=== PATIENT | female | born 1980 | race Caucasian/White ===

== ENCOUNTER → 2018-02-24 08:49 | Outpatient (CLI) | payer OTHER, SELFPAY ==
[2018-02-24 10:28] LABS: International Normalized Ratio 1.2
== END ==
PROVIDERS: Referring Provider Internal Medicine Hematology & Oncology; Visit Provider Internal Medicine Hematology & Oncology
DX: I82.621 Acute embolism and thrombosis of deep veins of right upper extremity (principal); I82.890 Acute embolism and thrombosis of other specified veins
CPT/HCPCS: 85610

== ENCOUNTER → 2020-04-15 06:48 | Outpatient (CLI) | payer BC, SELFPAY ==
--- NOTE | 2020-04-15 07:37 | CT_ITS ---
STUDY: CT CHEST WITH CONTRAST REASON FOR EXAM: Female, 39 years old. CONNECTIVE TISSUE DISORDER? HISTORY OF PE RADIATION DOSAGE (If Supplied By Facility): CTDIvol = ( 7.11 ) mGy, DLP = ( 151.45 ) mGycm TECHNIQUE: Transaxial imaging was performed following intravenous administration of IV 100mL Isovue-300. Individualized dose optimization techniques were used for this CT. COMPARISON: 08/14/2014 FINDINGS: There are interstitial fibrotic changes of the lungs more prominent in the lung bases may be due to scleroderma. There is no demonstrated pleural abnormality. Normal heart and pericardium. There is dilatation of the esophagus. Normal hilar regions. Normal enhanced pulmonary arteries. Normal aorta arch and descending thoracic aorta. Normal osseous structures. There is no demonstrated abnormality of the visualized upper abdomen. CT/Chest WITH Contrast IMPRESSION: Subpleural interstitial fibrosis more prominent in the lung bases and elevation of the esophagus may be due to scleroderma. There has been no significant change since the previous study. Electronically Signed: Rosa Thorne, at 16:14 EST Tel , Service support ,
--- NOTE | 2020-04-16 08:32 | PFT ---
INTRODUCTION: The patient is a 39-year-old female who presents for pulmonary function studies secondary to a diagnosis of unspecified asthma. Respiratory therapy reports good patient effort. Bronchodilators were used during testing. INTERPRETATION: Forced expiration spirometry demonstrates no evidence of a large airways obstructive ventilatory defect. There was no significant response to aerosolized bronchodilators, based upon strict ATS criteria. Spirograms are of good quality and plateau normally. Body plethysmography was performed and reveals a decreased TLC to 3.52 L, 69% of predicted, indicative of a moderate restrictive ventilatory impairment. Diffusing capacity by single breath CO is reduced as well at 61% of predicted. IMPRESSION: Moderate restrictive ventilatory impairment with symmetric reduction in diffusing capacity. No significant bronchodilator response was noted.
== END ==
PROVIDERS: Referring Provider Internal Medicine Rheumatology; Visit Provider Internal Medicine Rheumatology
DX: M35.9 Systemic involvement of connective tissue, unspecified (principal); J45.909 Unspecified asthma, uncomplicated
CPT/HCPCS: 71260; 94060; 94726; 94729; Q9967

== ENCOUNTER 2020-10-04 01:15 | Emergency (ER) | payer BC, SELFPAY ==
[2020-10-04 01:16] VITALS: BP 115/84; PULSE 77; RESP 18; TEMP 36.7; O2SAT 98; BMI 19.8
[2020-10-04] MEDS: 0.9% Normal Saline 1,000 ML 1000 ML IV (01:50)
[2020-10-04] MEDS: Ondansetron 4 MG/2 ML Vial IV (01:50)
[2020-10-04 01:51] LABS: Bacteria 0 SEEN /hpf (None Seen); Mucous, Urine 0 SEEN /hpf (<or=2+); Red Blood Cells-Urine 0 SEEN /hpf (0-5); Squamous Epithelial Cells - UA 0 SEEN /hpf (5-10); White Blood Cells 0 SEEN /hpf (0-5)
[2020-10-04] MEDS: Morphine 4 MG/ML Syringe IV (01:52)
[2020-10-04 01:53] LABS: Absolute Lymphocyte Count 1.72 X10^3/uL (0.83-4.51); Absolute Neutrophil Count 5.8 X10^3/uL (2.0-7.7); Basophil# 0.04 X10^3/uL; Basophil% 0.5 % (0-1); Eosinophil# 0.11 X10^3/uL; Eosinophils% 1.3 % (0-5); Hematocrit 43.8 % (37-47); Hemoglobin 14.1 g/dL (12.0-15.0); Lymphocyte # 1.72 X10^3/ul (0.83-4.51); Lymphocyte % 20.1 % (19-41); Mean Corp Hgb Conc 32.2 g/dL (32-36); Mean Corpuscular Hgb 28.3 pg (27.0-32.0); Mean Corpuscular Volume 87.8 fL (81-99); Mean Platelet Vol. 10.8 fl (6.2-12.0); Monocyte% 9.4 % (0-10); NRBC Flagged by Analyzer 0 % (0-5); Neutrophil # 5.83 X10^3/uL (2.7-7.7); Neutrophil % 68.2 % (47-70); Platelet Count 193 K/mm3 (150-450); RBC Distribution Width CV 14.1 % (11.6-14.6); RBC Distribution Width SD 44.8 fl (35.1-43.9); Red Blood Count 4.99 M/mm3 (4.2-5.4); White Blood Count 8.5 K/mm3 (4.4-11.0)
[2020-10-04 01:54] LABS: Color, Urine Yellow (Yellow); Glucose, Dipstick Normal (Normal); Ketone-Dipstick Negative (Negative); Leukocyte Esterase-Dipstick Negative /ul (Negative); Nitrite-Dipstick Negative (Negative); Occult Blood-Urine Negative /ul (Negative); Protein-Dipstick Negative (Negative); Urine Bilirubin Dipstick Negative (Negative); Urine Clarity Clear (Clear); Urine Urobilinogen Normal (Normal)
[2020-10-04 02:01] LABS: Internal QC Validated? YES +Cl - CLEAR BKGD
[2020-10-04 02:02] LABS: Pregnancy, Urine Negative Negative
--- NOTE | 2020-10-04 02:04 | EDS_ITS ---
HPI HPI - GI History of Present Illness Chief Complaint: Abd Pain Narrative Narrative: 40-year-old female presenting with diffuse cramping abdominal pain which she states began after she ate Occitan food tonight. Nobody else ate what she ate but nobody else was ill. She admits to nausea and diarrhea as well. She has not had a fever or chills. PFSH PFS Medical History Lung disease Home Medications hydroxychloroquine 200 mg PO BID 08/14/14 [History Last Taken 03/20/15 20:00 200 mg] warfarin [Coumadin ([facility])] 2 mg PO DAILY 08/14/14 [History Last Taken 03/21/15 17:00 3 mg] lansoprazole [Prevacid] 30 mg PO DAILY 03/10/15 [History Last Taken 03/22/15 08:00 30 mg] promethazine 25 mg PO Q6H PRN PRN #10 tablet 10/04/20 [Rx Last Taken Unknown] sertraline [Zoloft] 50 mg PO DAILY 10/04/20 [History Last Taken Unknown] Allergy/AdvReac Type Severity Reaction Status Date / Time metronidazole [From Flagyl] AdvReac Rash Verified 10/04/20 01:20 Social History Smoking Status: Never smoker ROS ROS ED Constitutional Constitutional ED: Denies chills, fever(s) or sweats Eyes Eyes: Denies blurry vision or change in vision ENT ENT ED: Denies ear pain, rhinorrhea or sore throat Cardiovascular Cardiovascular: Denies chest pain, palpitations or racing heartbeat Respiratory/Chest Respiratory/Chest: Denies cough, dyspnea or sputum Gastrointestinal Gastrointestinal: Reports abdominal pain, bloating, diarrhea and nausea; Denies vomiting Genitourinary Genitourinary ED: Denies dysuria, hematuria or urinary frequency Musculoskeletal Musculoskeletal: Denies arthralgias, myalgias or neck pain Integumentary Denies abscess, Abrasions or rash Neurologic Neurologic: Denies headache(s), paresthesias or weakness Psychiatric Psychiatric: Denies anxiety, depression, suicidal ideation or suicidal thoughts Endocrine Endocrinology: Denies polydipsia or polyuria EXAM Physical Exam Const Vital Signs: 10/04/20 01:16 10/04/20 03:25 Temperature 98.1 F Temperature Source Oral Pulse Rate 77 86 Respiratory Rate 18 18 Blood Pressure 115/84 H 111/60 Blood Pressure Mean 94 Pulse Ox 98 96 Oxygen Delivery Method Room Air Positive well nourished and no apparent distress General Appearance ED: Negative for pallor HEENT Reports normocephalic, head/scalp atraumatic and moist mucous membranes Eyes PERRL and EOMs intact bilaterally Neck no lymphadenopathy and supple Resp normal respiratory effort and clear to auscultation bilaterally Auscultation: Negative for rales, rhonchi or wheezes Cardio regular rate and regular rhythm GI normal to inspection, nondistended, normoactive bowel sounds, soft to palpation and non-distended Auscultation: normoactive bowel sounds Palpation: soft Narrative: Deferred Back/Spine General Back: Negative for CVA tenderness Extremity normal to inspection General Extremety ED: Yes edema and tenderness General Extremity: edema Neuro oriented x3 and CN's II-XII intact bilaterally Sensorium / Orientation: alert Motor Exam: strength 5/5 throughout Psych mental status grossly normal Attitude: No agitated Skin no rashes or lesions noted and no wounds General Skin Exam: Negative for jaundice or pallor MDM MDM MDM Narrative Medical decision making narrative: Patient presenting with diffuse crampy abdominal pain and nausea after eating Occitan food. She denies any fever. This was acute in onset after eating Occitan food. Lab work shows no leukocytosis her H&H is stable. Renal function electrolytes are normal. Urinalysis is negative. INR is therapeutic. Patient was given IV fluids, Zofran, morphine and she feels improved. I do not believe she needs a CT of the abdomen and pelvis. She was given Bentyl prior to leaving. She is given prescription for Phenergan for home. Lab Data Attestation: I reviewed the patient's lab results. Labs: Laboratory Results - last 24 hr 10/04/20 10/04/20 10/04/20 01:25 01:30 01:30 WBC 8.5 RBC 4.99 Hgb 14.1 Hct 43.8 MCV 87.8 MCH 28.3 MCHC 32.2 RDW Std Deviation 44.8 H RDW Coeff of Guy 14.1 Plt Count 193 MPV 10.8 Immature Gran % (Auto) 0.500 Neut % (Auto) 68.2 Lymph % (Auto) 20.1 [place] % (Auto) 9.4 Eos % (Auto) 1.3 Baso % (Auto) 0.5 Absolute Neuts (auto) 5.8 Absolute Lymphs (auto) 1.72 Nucleated RBC % 0 PT INR Sodium 138 Potassium 3.5 Chloride 103 Carbon Dioxide 31.0 Anion Gap 4 L BUN 11 Creatinine 0.91 Estim Creat Clear Calc 67.85 Est GFR (MDRD) Af Amer 88 Est GFR (MDRD) Non-Af 73 BUN/Creatinine Ratio 12.1 Glucose 96 Calcium 9.1 Total Bilirubin 0.40 AST 29 ALT 30 Alkaline Phosphatase 82 Total Protein 8.9 H Albumin 3.4 Globulin 5.5 H Albumin/Globulin Ratio 0.6 L Lipase 199 Urine Color Yellow Urine Clarity Clear Urine pH 7.0 Ur Specific [place] 1.010 Urine Protein Negative Urine Glucose (UA) Normal Urine Ketones Negative Urine Occult Blood Negative Urine Nitrite Negative Urine Bilirubin Negative Urine Urobilinogen Normal Ur Leukocyte Esterase Negative Urine RBC 0 SEEN Urine WBC 0 SEEN Ur Squamous Epith Cells 0 SEEN Urine Bacteria 0 SEEN Urine Mucus 0 SEEN Urine Test Negative 10/04/20 02:10 WBC RBC Hgb Hct MCV MCH MCHC RDW Std Deviation RDW Coeff of Guy Plt Count MPV Immature Gran % (Auto) Neut % (Auto) Lymph % (Auto) [place] % (Auto) Eos % (Auto) Baso % (Auto) Absolute Neuts (auto) Absolute Lymphs (auto) Nucleated RBC % PT 21.9 H INR 2.0 Sodium Potassium Chloride Carbon Dioxide Anion Gap BUN Creatinine Estim Creat Clear Calc Est GFR (MDRD) Af Amer Est GFR (MDRD) Non-Af BUN/Creatinine Ratio Glucose Calcium Total Bilirubin AST ALT Alkaline Phosphatase Total Protein Albumin Globulin Albumin/Globulin Ratio Lipase Urine Color Urine Clarity Urine pH Ur Specific [place] Urine Protein Urine Glucose (UA) Urine Ketones Urine Occult Blood Urine Nitrite Urine Bilirubin Urine Urobilinogen Ur Leukocyte Esterase Urine RBC Urine WBC Ur Squamous Epith Cells Urine Bacteria Urine Mucus Urine Test Discharge Plan Triage Chief Complaint: Abd Pain ED Provider: Erick New Dx/Rx/DC Orders Instructions: ED Abdominal Pain Unkn Cause Fem Prescriptions: New promethazine 25 mg tablet 25 mg PO Q6H PRN PRN (Reason: Nausea) Qty: 10 RF: 0 No Action warfarin [Jantoven] 3 MG tablet 2 mg PO DAILY RF: 0 hydroxychloroquine 200 MG tablet 200 mg PO BID RF: 0 lansoprazole [Prevacid] 30 MG capsule 30 mg PO DAILY RF: 0 sertraline [Zoloft] 50 mg Tablet 50 mg PO DAILY RF: 0 Referrals: TAYO GARCIA [Other] Disposition Disposition: Home, self care Discharge Date/Time: 10/04/20 03:28
[2020-10-04 02:05] LABS: ALB/GLOB Ratio 0.6 RATIO (0.9-2.4); AST(SGOT) 29 U/L (15-37); Alanine Aminotransfer ALT/SGPT 30 U/L (13-56); Albumin, Serum 3.4 g/dL (3.2-5.0); Alkaline Phosphatase 82 U/L (45-117); Anion Gap 4 (5-15); BUN 11 mg/dL (7-18); BUN/Creat Ratio 12.1 RATIO (10-20); Calcium,Total 9.1 mg/dL (8.5-10.1); Chloride 103 mmol/L (98-107); Creatinine, Serum 0.91 mg/dL (0.55-1.02); EST Glomerular Filtration Rate 73 mL/min (>60); Est Glom Filt Rate - Afr Amer 88 mL/min (>60); Estimated Creatinine Clearance 67.85 ml/min; Globulin 5.5 g/dL (2.2-4.2); Glucose 96 mg/dL (74-106); Lipase 199 U/L (73-393); Potassium 3.5 mmol/L (3.5-5.1); Protein, Total 8.9 g/dL (6.4-8.2); Sodium Level 138 mmol/L (136-145)
[2020-10-04 02:24] LABS: Prothrombin Time (Protime)PT. 21.9 SECONDS (11.7-14.9)
[2020-10-04] MEDS: Dicyclomine 10 MG Capsule 20 MG PO (03:20)
[2020-10-04 03:25] VITALS: BP 111/60; PULSE 86; RESP 18; O2SAT 96
== END 2020-10-04 03:28 | disposition home or self-care (01) ==
PROVIDERS: Emergency Provider Student in an Organized Health Care Education/Training Program
DX: R10.9 Unspecified abdominal pain (principal); R11.0 Nausea; R19.7 Diarrhea, unspecified; Z79.01 Long term (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 of anticoagulants; Z79.899 Other long term (current) drug therapy
CPT/HCPCS: 80053; 81001; 81025; 83690; 85025; 85610; 96361; 96374; 96375; 99284; J7030; A4216; J2405

== ENCOUNTER 2021-03-30 03:08 | Day surgery (SDC) | payer BC, SELFPAY ==
[2021-03-30] VITALS (10 sets, daily range): BP systolic 102–118; BP diastolic 66–78; PULSE 80–99; RESP 14–16; TEMP 36.4–37.3; O2SAT 92–100; BMI 20.9
--- NOTE | 2021-03-30 | APP_PTH ---
PATIENT: TAMY VITAL LOC: [facility] [place] U#:[id number] AGE/SX: 40/F ROOM: RE03/30/[address]: Dr. Xavier Villalobos MD : 1980 BED: DIS: 03/30/2021 SPEC #: [id number] RECD: 03/30/21 13:58 STATUS: JAIMIE MARISELA #: [id number] KARMA: 03/30/21 00:[address]: Xavier Villalobos DEPT: SURGICAL PATHOLOGY RECD BY: Hebert Fountain Tissues: Appendix, NOS Procedures: Surgery Specimen Level III HEADER OPERATION: Laparoscopic appendectomy PRE-OP DIAGNOSIS: Acute appendicitis TISSUE SUBMITTED: Appendix MICROSCOPIC DIAGNOSIS Appendix, appendectomy: Acute appendicitis. Acute serositis. AM:sari 03/31/2021 MICROSCOPIC DESCRIPTION Slides are reviewed. GROSS DESCRIPTION Received in fixative is one container labeled with the patient's name and designated appendix. The specimen consists of an appendix measuring 4 cm in length and 0.7 cm in average diameter. No gross perforations are evident. No mass lesion is identified. Prevention Coordinator sections are submitted in one cassette. / AM:sari 03/30/21 TC:2 [facility]: [id number]
--- NOTE | 2021-03-30 03:37 | CT_ITS ---
STUDY: CT ABDOMEN AND PELVIS WITH CONTRAST REASON FOR EXAM: Female, 40 years old patient with abdominal pain. RADIATION DOSAGE (If Supplied By Facility): CTDIvol = ( 8.27 ) mGy, DLP = ( 317.14 ) mGycm TECHNIQUE: Transaxial images were obtained from the dome of the diaphragm to the symphysis pubis without oral contrast. 100 mL of Isovue-370 was administered. Sagittal and coronal images were reconstructed. Individualized dose optimization techniques were used for this CT. COMPARISON: CT of the abdomen and pelvis dated 04/17/2015. FINDINGS: There are lucencies within the periphery of the lower lobes suggesting paraseptal emphysema. There is also suggestion of interstitial thickening and pulmonary fibrosis at the lung bases. The visualized portions of the heart are within normal limits. Normal liver. Normal gallbladder and extrahepatic biliary system. Normal spleen. Normal pancreas. Normal bilateral adrenal glands. There are multiple bilateral nonobstructing renal calculi measuring between 1 and 2 mm in size. The kidneys have normal size and position. There is no evidence for hydronephrosis, hydroureter or radiopaque ureteral calculus. There appears to be a hiatal hernia versus dilated distal esophagus. Stomach otherwise has a normal appearance. There is dilatation of the duodenum with maximum transverse dimension of approximately 4.3 cm. This may be secondary to localized ileus. There is no evidence for ascites or pneumoperitoneum. Small bowel has a grossly normal appearance, otherwise. The descending colon is nondistended which gives the appearance of thickened cherry. There is thickening cherry of the distal transverse colon as well. The cherry of the sigmoid colon are also mildly thickened. There is a tubular, thick-walled appendix (>7mm), consistent with acute appendicitis. Normal abdominal aorta. There is venous distention of the inferior vena cava (IVC). There is metallic foreign body located anterior to left psoas muscle. This is unchanged since the previous CT. Normal retroperitoneum. Normal urinary bladder. The uterus is retroverted. There are multiple myometrial calcifications and may be secondary to uterine leiomyomata. There is a small amount of pelvic fluid. There is a small umbilical hernia containing fat. Normal osseous structures. CT/Abdomen/Pelvis W IV Cont ONLY IMPRESSION: 1. Nonspecific dilatation of the duodenum may be the result of localized inflammation. The rest of the bowel is not dilated. 2. Findings suggest sequela of acute uncomplicated appendicitis. 3. Nonobstructing renal calculi. 4. Nonspecific dilatation of distal esophagus and/or hiatal hernia. N.B. : The above Results were Read Back by Phyllis Li MD to Dr. Ranjit Morris MD, and understanding confirmed on 03/30/2021 06:21:56 (ET). Electronically Signed: Phyllis Li MD at 6:27 EST , Service support ,
--- NOTE | 2021-03-30 03:39 | EDS_ITS ---
HPI HPI - GI History of Present Illness Chief Complaint: Abd Pain Informant: patient Abdominal Pain/Flank Pain Onset: Today and Hours Context: Gradual Onset Timing: Continuous Quality: Aching and Cramping Location: Diffuse Current Severity: Mild Maximum Severity: Mild Worsened by: Nothing Relieved by: Nothing Nausea/Vomiting/Emesis GI Symptom: Negative for Nausea and Vomiting Diarrhea/Melena/Hematochezia GI Symptom: Positive for Diarrhea; Negative for Melena and Hematochezia Stool Quality: Positive for Loose Severity: Mild Associated Symptoms Associated Symptoms: Negative for Dysuria, Frequency, Hematuria and Urgency Narrative Narrative: 40-year-old female history of kidney stone, hiatal hernia, fibroid ablation, autoimmune disease, DVT on Coumadin. States that tonight after going out to eat she had abdominal pain all over. Started around midnight. No nausea or vomiting. Has had loose stools. No melena. No dysuria. No fever. No abdominal trauma. Still has her appendix and her gallbladder. She had a prior uterine ablation for fibroids. Prior similar symptoms: Yes Recent Illness/Hospitalization: No PFSH PFSH Medical History Lung disease Rheumatoid arthritis Home Medications hydroxychloroquine 200 mg PO BID 08/14/14 [History Last Taken 03/20/15 20:00 200 mg] warfarin [Coumadin ([facility])] 2 mg PO DAILY 08/14/14 [History Last Taken 03/21/15 17:00 3 mg] lansoprazole [Prevacid] 30 mg PO DAILY 03/10/15 [History Last Taken 03/22/15 08:00 30 mg] Allergy/AdvReac Type Severity Reaction Status Date / Time metronidazole [From Flagyl] AdvReac Rash Verified 03/30/21 03:13 Social History Smoking Status: Never smoker ROS ROS ED ROS Narrative Abdominal pain. Diarrhea. Review of Systems ROS Unobtainable: Denies due to encephalopathy Constitutional Constitutional ED: Denies chills or fever(s) ENT ENT ED: Denies ear pain Cardiovascular Cardiovascular: Denies chest pain or palpitations Respiratory/Chest Respiratory/Chest: Denies cough or dyspnea Gastrointestinal Gastrointestinal: Reports abdominal pain and diarrhea; Denies nausea or vomiting Genitourinary Genitourinary ED: Denies dysuria or hematuria Musculoskeletal Musculoskeletal: Denies myalgias Integumentary Denies rash Neurologic Neurologic: Denies headache(s) Endocrine Endocrinology: Denies polyuria Hematologic/Lymphatic Hematologic/Lymphatic: Denies easy bruising Allergic/Immunologic Allergic/Immunologic ED: Denies urticaria EXAM Physical Exam Narrative Exam Narrative: 40-year-old female no acute distress. Vital signs stable afebrile. H EENT exam unremarkable. Moist remembers. Neck nontender no lymphadenopathy. Lungs clear to auscultation bilaterally. Heart regular rhythm no murmur. Rate about 80. Abdomen soft, nondistended normal bowel sounds no peritoneal signs. Periumbilical tenderness. No hernia or mass. No pulsatile mass. With the right upper and right lower quadrants are unremarkable. There is no Whaley sign McBurney's point tenderness. Positive bowel sounds. Moving all 4 extremities. Nontender no edema. Back nontender. Neurologically awake and alert with no focal motor deficits. Const Vital Signs: 03/30/21 03:09 Temperature 98.5 F Temperature Source Temporal Pulse Rate 80 Respiratory Rate 16 Blood Pressure 118/78 Blood Pressure Mean 91 Pulse Ox 100 Oxygen Delivery Method Room Air Positive well nourished and well developed; Negative for obese, cachectic, contractures or unkempt General Appearance ED: well developed and NAD; Negative for unkempt, cachectic, contractures or pallor Nutritional Appearance: Negative for cachectic or obese HEENT Reports moist mucous membranes normocephalic and atraumatic Eyes PERRL and EOMs intact bilaterally Neck no lymphadenopathy, supple and no JVD General: Negative for tenderness Resp normal respiratory effort and clear to auscultation bilaterally Auscultation: Negative for rales, rhonchi or wheezes Cardio regular rate, regular rhythm, S1 normal heart sound, S2 normal heart sound and no murmurs GI non-distended and no masses; Negative for non-tender Inspection: Negative for abdominal distention Auscultation: normoactive bowel sounds; Negative for hypoactive bowel sounds Palpation: soft and tender; Negative for guarding, rigid or rebound tenderness present Back/Spine no CVA tenderness General Back: Negative for CVA tenderness Cervical Spine: Negative for cervical spine tenderness Thoracic Spine / Upper Back: Negative for thoracic spinal tenderness Extremity full ROM General Extremety ED: Negative for edema or tenderness General Extremity: Negative for edema Neuro No CN's II-XII intact bilaterally and moves all extremities Sensorium / Orientation: alert, oriented to person, oriented to place and oriented to time; Negative for orientation impaired, confused, lethargic or stuporous Motor Exam: strength 5/5 throughout Psych mental status grossly normal and thought process normal Appearance: Negative for unkempt Mood & Affect: Negative for depressed Skin no wounds General Skin Exam: Negative for jaundice or pallor Lesions: no lesions Rashes: no rashes MDM MDM MDM Narrative Medical decision making narrative: 40-year-old female with abdominal pain. CAT scan labs are pending. Treated with IV fluids, morphine and Zofran. Repeat exam patient is doing well at 5:05 AM. She is currently pain-free. Nausea is resolved. She did receive IV morphine and Zofran and she is over in CAT scan at this time. Repeat abdominal exam prior to her going to CAT scan was benign. Repeat exam at 6:45 AM. I discussed with patient her test results. Her labs are benign. Her CAT scan is being read as acute appendicitis by the radiologist. I have already spoken to the general surgeon on-call Dr. Primitivo Villalobos. Patient will be treated with IV Zosyn. She will wait in the ER till the general surgeon and the OR is available. Lab Data Attestation: I reviewed the patient's lab results. Lab results narrative: CBC shows a white count of 7.3. Hemoglobin 13.7. Platelets of 181. Chemistries show potassium 3.4 gap of 6 normal BUN and creatinine. Liver enzymes. Normal lipase 132. UA is negative with no nitrates, nor any white or red cells nor any bacteria. Labs are unremarkable. test negative. Coumadin level INR is 2.0. CAT scan is read by the radiologist as acute dilated appendicitis. Labs: Laboratory Results - last 24 hr 03/30/21 03/30/21 03/30/21 03:15 03:15 03:15 WBC 7.3 RBC 4.51 Hgb 13.7 Hct 40.6 MCV 90.0 MCH 30.4 MCHC 33.7 RDW Std Deviation 41.4 RDW Coeff of Guy 12.7 Plt Count 181 MPV 10.8 Immature Gran % (Auto) 0.300 Neut % (Auto) 59.4 Lymph % (Auto) 29.2 [place] % (Auto) 9.9 Eos % (Auto) 0.7 Baso % (Auto) 0.5 Absolute Neuts (auto) 4.3 Absolute Lymphs (auto) 2.13 Nucleated RBC % 0 PT INR Sodium 139 Potassium 3.4 L Chloride 106 Carbon Dioxide 27.0 Anion Gap 6 BUN 13 Creatinine 0.78 Estim Creat Clear Calc 82.79 Est GFR (MDRD) Af Amer 106 Est GFR (MDRD) Non-Af 87 BUN/Creatinine Ratio 16.8 Glucose 93 Calcium 9.1 Total Bilirubin 0.40 AST 28 ALT 33 Alkaline Phosphatase 81 Total Protein 8.6 H Albumin 3.3 Globulin 5.3 H Albumin/Globulin Ratio 0.6 L Lipase 132 Serum , Qual NEGATIVE Urine Color Urine Clarity Urine pH Ur Specific [place] Urine Protein Urine Glucose (UA) Urine Ketones Urine Occult Blood Urine Nitrite Urine Bilirubin Urine Urobilinogen Ur Leukocyte Esterase Urine RBC Urine WBC Ur Squamous Epith Cells Urine Bacteria Urine Mucus 03/30/21 03/30/21 03:40 04:55 WBC RBC Hgb Hct MCV MCH MCHC RDW Std Deviation RDW Coeff of Guy Plt Count MPV Immature Gran % (Auto) Neut % (Auto) Lymph % (Auto) [place] % (Auto) Eos % (Auto) Baso % (Auto) Absolute Neuts (auto) Absolute Lymphs (auto) Nucleated RBC % PT 21.8 H INR 2.0 Sodium Potassium Chloride Carbon Dioxide Anion Gap BUN Creatinine Estim Creat Clear Calc Est GFR (MDRD) Af Amer Est GFR (MDRD) Non-Af BUN/Creatinine Ratio Glucose Calcium Total Bilirubin AST ALT Alkaline Phosphatase Total Protein Albumin Globulin Albumin/Globulin Ratio Lipase Serum , Qual Urine Color Yellow Urine Clarity Clear Urine pH 7.0 Ur Specific [place] 1.005 Urine Protein Negative Urine Glucose (UA) Normal Urine Ketones Negative Urine Occult Blood Negative Urine Nitrite Negative Urine Bilirubin Negative Urine Urobilinogen Normal Ur Leukocyte Esterase 25 H Urine RBC 0 SEEN Urine WBC 0-5 SEEN Ur Squamous Epith Cells 0-5 SEEN Urine Bacteria 0 SEEN Urine Mucus 0 SEEN Radiography Diagnostic Testing: Clinical Impression(s) from Imaging Studies Abdomen/Pelvis CT 03/30/21 03:37 IMPRESSION: 1. Nonspecific dilatation of the duodenum may be the result of localized inflammation. The rest of the bowel is not dilated. 2. Findings suggest sequela of acute uncomplicated appendicitis. 3. Nonobstructing renal calculi. 4. Nonspecific dilatation of distal esophagus and/or hiatal hernia. N.B. : The above Results were Read Back by Phyllis Li MD to Dr. Ranjit Morris MD, and understanding confirmed on 03/30/2021 06:21:56 (ET). Electronically Signed: Phyllis Li MD at 6:27 EST , Service support , ADDENDUM: 03/30/21 0634 IMPRESSION: 1. Nonspecific dilatation of the duodenum may be the result of localized inflammation. The rest of the bowel is not dilated. 2. Findings suggest sequela of acute uncomplicated appendicitis. 3. Nonobstructing renal calculi. 4. Nonspecific dilatation of distal esophagus and/or hiatal hernia. N.B. : The above Results were Read Back by Phyllis Li MD to Dr. Ranjit Morris MD, and understanding confirmed on 03/30/2021 06:21:56 (ET). Electronically Signed: Phyllis Li MD at 6:27 EST , Service support , Discharge Plan Triage Chief Complaint: Abd Pain ED Provider: Tevin Morris Dx/Rx/DC Orders Clinical Impression: Acute appendicitis, Anticoagulated on Coumadin, History of deep vein thrombosis Prescriptions: No Action warfarin [Jantoven] 3 MG tablet 2 mg PO DAILY RF: 0 hydroxychloroquine 200 MG tablet 200 mg PO BID RF: 0 lansoprazole [Prevacid] 30 MG capsule 30 mg PO DAILY RF: 0 Referrals: TAYO GARCIA [Other] Disposition Disposition: Acute Care [facility]
[2021-03-30] MEDS: Ondansetron 4 MG/2 ML Vial IV (03:55)
[2021-03-30] MEDS: 0.9% Normal Saline 1,000 ML 1000 ML IV (03:55)
[2021-03-30] MEDS: morphine 8 MG/ML Syringe 6 MG IV (03:55)
[2021-03-30 04:00] LABS: Bacteria 0 SEEN /hpf (None Seen); Mucous, Urine 0 SEEN /hpf (<or=2+); Red Blood Cells-Urine 0 SEEN /hpf (0-5)
[2021-03-30 04:03] LABS: Absolute Lymphocyte Count 2.13 X10^3/uL (0.83-4.51); Absolute Neutrophil Count 4.3 X10^3/uL (2.0-7.7); Basophil# 0.04 X10^3/uL; Basophil% 0.5 % (0-1); Eosinophil# 0.05 X10^3/uL; Eosinophils% 0.7 % (0-5); Hematocrit 40.6 % (37-47); Hemoglobin 13.7 g/dL (12.0-15.0); Lymphocyte # 2.13 X10^3/ul (0.83-4.51); Lymphocyte % 29.2 % (19-41); Mean Corp Hgb Conc 33.7 g/dL (32-36); Mean Corpuscular Hgb 30.4 pg (27.0-32.0); Mean Platelet Vol. 10.8 fl (6.2-12.0); Monocyte# 0.72 X10^3/uL; Monocyte% 9.9 % (0-10); NRBC Flagged by Analyzer 0 % (0-5); Neutrophil # 4.33 X10^3/uL (2.7-7.7); Neutrophil % 59.4 % (47-70); Platelet Count 181 K/mm3 (150-450); RBC Distribution Width CV 12.7 % (11.6-14.6); RBC Distribution Width SD 41.4 fl (35.1-43.9); Red Blood Count 4.51 M/mm3 (4.2-5.4); White Blood Count 7.3 K/mm3 (4.4-11.0)
[2021-03-30 04:09] LABS: Color, Urine Yellow (Yellow); Glucose, Dipstick Normal (Normal); Ketone-Dipstick Negative (Negative); Leukocyte Esterase-Dipstick 25 /ul (Negative); Nitrite-Dipstick Negative (Negative); Occult Blood-Urine Negative /ul (Negative); Protein-Dipstick Negative (Negative); Specific Gravity, Urine 1.005 (1.002-1.030); Urine Bilirubin Dipstick Negative (Negative); Urine Clarity Clear (Clear); Urine Urobilinogen Normal (Normal)
[2021-03-30 04:12] LABS: Internal QC Validated? YES +Cl - CLEAR BKGD; Pregnancy, Serum, hCG Quali. NEGATIVE Negative
[2021-03-30 04:15] LABS: Squamous Epithelial Cells - UA 0-5 SEEN /hpf (5-10); White Blood Cells 0-5 SEEN /hpf (0-5)
[2021-03-30 04:21] LABS: ALB/GLOB Ratio 0.6 RATIO (0.9-2.4); AST(SGOT) 28 U/L (15-37); Alanine Aminotransfer ALT/SGPT 33 U/L (13-56); Albumin, Serum 3.3 g/dL (3.2-5.0); Alkaline Phosphatase 81 U/L (45-117); Anion Gap 6 (5-15); BUN 13 mg/dL (7-18); BUN/Creat Ratio 16.8 RATIO (10-20); Calcium,Total 9.1 mg/dL (8.5-10.1); Chloride 106 mmol/L (98-107); Creatinine, Serum 0.78 mg/dL (0.55-1.02); EST Glomerular Filtration Rate 87 mL/min (>60); Est Glom Filt Rate - Afr Amer 106 mL/min (>60); Estimated Creatinine Clearance 82.79 ml/min; Globulin 5.3 g/dL (2.2-4.2); Glucose 93 mg/dL (74-106); Lipase 132 U/L (73-393); Potassium 3.4 mmol/L (3.5-5.1); Protein, Total 8.6 g/dL (6.4-8.2); Sodium Level 139 mmol/L (136-145)
[2021-03-30 05:14] LABS: Prothrombin Time (Protime)PT. 21.8 SECONDS (11.7-14.9)
[2021-03-30] MEDS: Phytonadione (Vit K) 10 MG/ML Ampul SC (08:55)
[2021-03-30] MEDS: 0.9% Normal Saline 1,000 ML 15 ML IV (09:15)
--- NOTE | 2021-03-30 11:44 | CON.PCM.SX_ITS ---
Assessment & Plan Assessment/Plan (1) Acute appendicitis: QUALIFIERS: Acute appendicitis type: with localized peritonitis Appendicitis gangrene presence: without gangrene Appendicitis perforation presence: without perforation Appendicitis abscess presence: without abscess Qualified Code(s): K35.30 - Acute appendicitis with localized peritonitis, without perforation or gangrene PLAN: My plan is to perform a laparoscopic appendectomy.I have counseled the patient as to the risks of the procedure, including but not limited to: infection, bleeding, injury to any blood vessels/nerves, injury to any bowel/bladder, injury to any intraabdominal organs such as the liver/spleen, perforation of the GI tract, intraabdominal abscess/bleeding, incisional he rnias, injury to the common bile duct/biliary ducts, injury to the spermatic cord/vessels/testicles, recurrence of hernia(s), complications of anesthesia, etc. The patient verbalizes understanding. HPI Consult Data Date of Consult: 03/30/21 HPI Narrative HPI Narrative: TAMY VITAL, is a 40-year-old female history of kidney stone, hiatal hernia, fibroid ablation, autoimmune disease, DVT on Coumadin. States that tonight after going out to eat she had abdominal pain all over. Started around midnight. No nausea or vomiting. Has had loose stools. No melena. No dysuria. No fever. No abdominal trauma. Still has her appendix and her gallbladder. She had a prior uterine ablation for fibroids. Prior similar symptoms: Yes CT scan of the abdomen and pelvis showed:IMPRESSION: 1. Nonspecific dilatation of the duodenum may be the result of localized inflammation. The rest of the bowel is not dilated. 2. Findings suggest sequela of acute uncomplicated appendicitis. 3. Nonobstructing renal calculi. 4. Nonspecific dilatation of distal esophagus and/or hiatal hernia. FORMERLY [facility] Medical History Lung disease Rheumatoid arthritis Home Medications hydroxychloroquine 200 mg PO BID 08/14/14 [History Last Taken 03/20/15 20:00 200 mg] warfarin [Coumadin ([facility])] 2 mg PO DAILY 08/14/14 [History Last Taken 03/21/15 17:00 3 mg] lansoprazole [Prevacid] 30 mg PO DAILY 03/10/15 [History Last Taken 03/22/15 08:00 30 mg] Allergy/AdvReac Type Severity Reaction Status Date / Time metronidazole [From Flagyl] AdvReac Rash Verified 03/30/21 03:13 Social History Smoking Status: Never smoker ROS Constitutional Constitutional: Denies chills or fever(s) Cardiovascular Cardiovascular: Denies chest pain or chest pain at rest Respiratory/Chest Respiratory/Chest: Denies cough or dyspnea Gastrointestinal Gastrointestinal: Reports abdominal pain and diarrhea; Denies nausea or vomiting Genitourinary Genitourinary: Denies change in urinary stream Physical Exam Const alert, oriented x3 and no apparent distress General Appearance: cooperative HEENT normocephalic and head/scalp atraumatic Resp clear to auscultation bilaterally Cardio Rate: regular rate Rhythm: regular rhythm GI soft to palpation Palpation: tender McBurney's point Lab / Micro Data Result Diagrams: 03/30/21 03:15 03/30/21 03:15 Labs: Laboratory Results - last 24 hr 03/30/21 03:15: WBC 7.3, RBC 4.51, Hgb 13.7, Hct 40.6, MCV 90.0, MCH 30.4, MCHC 33.7, RDW Std Deviation 41.4, RDW Coeff of Guy 12.7, Plt Count 181, MPV 10.8, Immature Gran % (Auto) 0.300, Neut % (Auto) 59.4, Lymph % (Auto) 29.2, Mclennan % (Auto) 9.9, Eos % (Auto) 0.7, Baso % (Auto) 0.5, Absolute Neuts (auto) 4.3, Absolute Lymphs (auto) 2.13, Nucleated RBC % 0 03/30/21 03:15: Sodium 139, Potassium 3.4 L, Chloride 106, Carbon Dioxide 27.0, Anion Gap 6, BUN 13, Creatinine 0.78, Estim Creat Clear Calc 82.79, Est GFR (MDRD) Af Amer 106, Est GFR (MDRD) Non-Af 87, BUN/Creatinine Ratio 16.8, Glucose 93, Calcium 9.1, Total Bilirubin 0.40, AST 28, ALT 33, Alkaline Phosphatase 81, Total Protein 8.6 H, Albumin 3.3, Globulin 5.3 H, Albumin/Globulin Ratio 0.6 L, Lipase 132 03/30/21 03:15: Serum , Qual NEGATIVE 03/30/21 03:40: Urine Color Yellow, Urine Clarity Clear, Urine pH 7.0, Ur Specific [place] 1.005, Urine Protein Negative, Urine Glucose (UA) Normal, Urine Ketones Negative, Urine Occult Blood Negative, Urine Nitrite Negative, Urine Bilirubin Negative, Urine Urobilinogen Normal, Ur Leukocyte Esterase 25 H, Urine RBC 0 SEEN, Urine WBC 0-5 SEEN, Ur Squamous Epith Cells 0-5 SEEN, Urine Bacteria 0 SEEN, Urine Mucus 0 SEEN 03/30/21 04:55: PT 21.8 H, INR 2.0 Radiology Impression Abdomen/Pelvis CT 03/30/21 03:37 IMPRESSION: 1. Nonspecific dilatation of the duodenum may be the result of localized inflammation. The rest of the bowel is not dilated. 2. Findings suggest sequela of acute uncomplicated appendicitis. 3. Nonobstructing renal calculi. 4. Nonspecific dilatation of distal esophagus and/or hiatal hernia. N.B. : The above Results were Read Back by Phyllis Li MD to Dr. Ranjit Morris MD, and understanding confirmed on 03/30/2021 06:21:56 (ET). Electronically Signed: Phyllis Li MD at 6:27 EST , Service support , ADDENDUM: 03/30/21 0634
[2021-03-30] MEDS: Bupivacaine Mpf 0.5% 30 ML VIAL (12:28)
--- NOTE | 2021-03-30 12:50 | OP.PCM_ITS ---
Problems Associated Problem List Diagnoses (1) Acute appendicitis: Report of Operation Date of Procedure: 03/30/21 Pre-Operative Diagnosis: Acute appendicitis Post-Operative Diagnosis: Same Surgery/Procedure Performed:: Laparoscopic appendectomy Surgeon: Wilfredo patient centered care specialist: Tevin Domínguez Type of Anesthesia: General Anesthesiologist: Tam Oates Specimen's removed: appy Estimated Blood Loss (mL): < 25 cc Description of Procedure: Patient was brought in the operating room. Placed in the supine position. Under excellent general anesthetic the abdomen was sterilely prepped and draped in usual fashion. Local was injected infraumbi lically. Dissection was carried down to the fascia. The fascia grasped with a Woody. Varies needle was placed inside the abdomen. Abdomen was insufflated to 15 torr. A 10/12 trocar was placed difficulty. Suprapubic #5 trochars placed laterally #5 trochars placed in the left lower quadrant. Both of these placed under direct visualization without injury to underlying structures. Patient was placed in the headdown and rotated to the left position. Noted to have acute appendicitis. Came down on the mesoappendix with the Enseal device then transected the base of the appendix with a 45 linear cutter. I had excellent hemostasis. Placed the specimen specimen bag delivered through the umbilical port without difficulty. Irrigated out the right lower quadrant pelvis area no pus was identified. Ran the small bowel no Meckel's diverticulum was identified. Removed the trochars under direct visualization, good hemostasis was noted. Close the fascia the umbilical port with a [id number] stitch of 0 Vicryl skin incisions were closed with subcuticular stitches of 4 Monocryl Steri-Strips were applied sterile dressings were applied patient tolerated the procedure well. Admit VTE Documentation VTE Present on Admission: No VTE Mechan Device Prophylaxis: SCD's VTE Pharm Prophylaxis ordered?: No Reason prophylaxis not ordered:: Procedure Not Indicated
--- NOTE | 2021-03-30 13:58 | DCINST_ITS ---
Discharge Instructions Procedure Appendectomy Diet Discharge Diet: Light diet - advance as tolerated (if you have questions about your diet instructions, please talk to you doctor.) Activity Discharge Activity: May Not Drive (for 3-5 days or while taking narcotic pain meds.) May shower in (days): 1 Dressing / Incision Call your doctor if your incision/area has: Continuous Slow Oozing, Sudden Increased Bleeding, Increased Pain/ Swelling, Increased Redness and Foul Smelling Discharge Call your doctor if you observe: Fever of 101 or Higher Suture Line Care: Avoid Pulling/Pushing and Avoid Pinching/Bending Additional Dressing/Incision Instructions:: Keep dressing clean and dry. Change or remove dressing in 2 days. Leave steri strips for 1 week. May protect with a gauze bandaid. Follow Up Care Please Follow Up With: Zulema Baig PA-C When: Call office to schedule an appointment to be seen in 1 week. Test Results: Test results from this visit will be discussed in further detail at your follow-up appointment, if applicable. Discharge Plan Admission Attending Provider: Xavier Villalobos Discharge Orders/Prescriptions Prescriptions: New oxycodone-acetaminophen [Endocet] 5-325 mg tablet 1 tab PO Q4H PRN (Reason: pain) 5 Days Qty: 20 RF: 0 No Action warfarin [Jantoven] 3 MG tablet 2 mg PO DAILY RF: 0 hydroxychloroquine 200 MG tablet 200 mg PO BID RF: 0 lansoprazole [Prevacid] 30 MG capsule 30 mg PO DAILY RF: 0 Referrals / Follow Up: TAYO GARCIA [Other] Zulema Baig PA-C [PHYSICIAN FIRMWARE SOFTWARE VERIFICATION ENGINEER] - Disposition Disposition (needs filled in before D/C Order can be placed): Home, Self Care
[2021-03-30] MEDS: Lactated Ringers 1,000 ML 15 ML IV (14:05)
[2021-03-30] MEDS: Acetaminophen 325 MG Tablet PO (15:15)
[2021-03-30] MEDS: oxyCODONE 5 MG Tablet PO (15:15)
== END 2021-03-30 15:41 | disposition home or self-care (01) ==
LOC: ED 07:13 → SDC 08:34 → ACINP 08:34
PROVIDERS: Emergency Provider Emergency Medicine; Visit Provider Surgery
PROC: 0DTJ4ZZ Resection of Appendix, Percutaneous Endoscopic Approach (ICD-10-PCS; CPT 44970; principal; 2021-03-30 15:00)
DX: K35.30 Acute appendicitis with localized peritonitis, without perforation or gangrene (principal); N20.0 Calculus of kidney; K22.89 Other specified disease of esophagus; M06.9 Rheumatoid arthritis, unspecified; Z79.01 Long term (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 of anticoagulants; Z86.718 Personal history of other venous thrombosis and embolism; Z87.442 Personal history of urinary calculi
CPT/HCPCS: 00840; 44970; 74177; 80053; 81001; 83690; 84703; 85025; 85610; 88304; 99284; J7030; J7120; Q9967; A4216; C1760; J2405

== ENCOUNTER 2022-06-17 16:50 | Emergency (ER) | payer BC, SELFPAY ==
[2022-06-17 16:51] VITALS: BP 99/76; PULSE 85; RESP 16; TEMP 36.6; O2SAT 97; BMI 20.9
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
[2022-06-17] MEDS: Acetaminophen 500 MG Tablet 1000 MG PO (19:45)
[2022-06-17] MEDS: cycloBENZAPRine HCl 10 MG Tablet PO (20:24)
== END 2022-06-17 20:26 | disposition home or self-care (01) ==
PROVIDERS: Emergency Provider Student in an Organized Health Care Education/Training Program; Visit Provider Student in an Organized Health Care Education/Training Program
DX: S16.1XXA Strain of muscle, fascia and tendon at neck level, initial encounter (principal); S46.911A Strain of unspecified muscle, fascia and tendon at shoulder and upper arm level, right arm, initial encounter; Z86.718 Personal history of other venous thrombosis and embolism; Z79.01 Long term (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 of anticoagulants; V43.53XA Car driver injured in collision with pick-up truck in traffic accident, initial encounter
CPT/HCPCS: 99283

== ENCOUNTER 2022-11-30 15:30 | Outpatient (RCR) | payer BC, SELFPAY ==
--- NOTE | 2022-09-27 19:46 | HP.PTEVAL_ITS ---
Patient's Visit Information TAMY VITAL is a 42 year old F referred to Physical Therapy by MANUELITO MUÑOZ with a diagnosis of PLANTAR FASCITIS LEFT ,POSTERIOR TIBIAL TENDON DYSFUNCTION RIGHT. Date of Evaluation: 09/27/22 Physical Therapist: Rai Beyer, PT, Cert MDT, OCS - Visit Plan Frequency: 2x /Week Duration: 6 Weeks Plan: PRECAUTION: LONG STANING H/O ON COUMIDIN ,AND MIXED CONNECTIVE TISSUE DOSORDER. PT INTERVTIONS MANUAL THERAPY STM/STICK /HAWK TO CALF/PLANTAR FASCIA ,US ,FLEXABLITY /STRETCHING TO PLANTAR FASCIA/ CALF DOMINGO RIGHT ANKLE AND STRENGTHENING EX'S - Subjective This 42 y/o female presents to physical with left plantar fasciitis ,right posterior tibial tendon dysfunction right . Patient has had foot problems since July 2022 ,on [place] trip walking which caused right PTTD then developed plantar fasciitis~ 2weeks. Seen DR did x-rays-. Recommended shoe inserts ,night splint and ankle brace made symptoms worse. Aggravating factors walking especially on hard services, standing , morning. Alleviating frozen bottle. Denies paresthesia/tingling- . Patient sleeping good. Patient pain affects QOL and function. Patient goals to have no pain. Patient has mixed connective tissue disorder. SOCIAL: - Pain Right Foot Pain Intensity (Out of 10): 3 Left Foot Pain Intensity (Out of 10): 3 Pain Intensity Range: 10 - Objective POSTURE: frontal plane mechanics ( pes planus), great toe MTP valgus. GAIT: reciprocal pattern. NEURO: denies paresthesia/tingling. PALAPTION: right posterior tibial tendon ,plantar fascia left ,bilateral calf tender. AROM: dorsiflexion 0 degrees ,plantar flexion degrees 65 degrees ,inversion right 20 degrees pain ,left 3 degrees , inversion 5. MMT: dorsiflexion 4/5 ,plantar flexion 4/5 , right posterior tibialis 4-/5 ,left 4/5 ,G-S 4/5 - Balance/Special Test Scores Lower Extremity Functional Score: 48 - Goals Goal 1:: I with HEP for feet Goal Time Frame: 4-6 Weeks Goal 2:: Patient to improve AROM right ankle WNL with no pain. Goal Time Frame: 4-6 Weeks Goal 3:: Patient to demonstrate 50% improvement with less pain and improve function with walking Goal Time Frame: 4-6 Weeks Goal 4:: Patient to increase strengthen right ankle to good without pain to improve gait Goal Time Frame: 4-6 Weeks Goal 5:: Patient to improve LFES score by 5 points to improve QOL and function Goal Time Frame: 4-6 Weeks - Rehabilitation Potential Physical Therapy Diagnosis: This patient has plantar fasciitis left foot and right posterior tibialis tendonitis with decrease ROM especially right ,pain ,difficulty with walking. pes planus ,tight tender calf thus benefit from skilled PT Rehabilitation Potential: Good - Anticipated Interventions Patient/Client Instruction: Educate patient on: Condition, Plan of Care For the Purpose of:: To decrease pain, To increase ROM, To improve muscle performance and motor function, To increase tolerance to activity/condition/position, To improve ability of physical actions for home/community/work/leisure, To improve health of tissue, To decrease soft tissue restriction, To increase flexibility/ROM, To improve endurance Therapeutic Exercise to Include: Strength training, Flexibilty training, Passive ROM, Active ROM Comment: FEET For the Purpose of:: To decrease pain, To increase ROM, To improve muscle performance and motor function, To improve ability to perform ADL's, To increase tolerance to activity/condition/position, To improve ability of physical actions for home/community/work/leisure, To improve health of tissue, To decrease soft tissue restriction, To increase flexibility/ROM, To reduce risk of recurrence, To prevent re-injury Manual Therapy Techniques to Include: Massage, Soft tissue mobilization Comment: PLANTAR FASCIA/CALF For the Purpose of:: To decrease pain, To increase ROM, To improve nutrient delivery to tissue, To increase oxygenation perfusion, To improve health of tissue, To decrease soft tissue restriction, To increase flexibility/ROM TENS: Yes IF ES: Yes Cryotherapy (ice pack, ice massage): Yes Thermo therapy (hot pack): Yes Ultrasound (thermal/non thermal): Yes For the Purpose of:: To decrease pain, To improve nutrient delivery to tissue, To increase oxygenation perfusion, To improve gait and locomotor functions, To improve health of tissue, To decrease soft tissue restriction Thank you for the opportunity to evaluate your patient. For Medicare and Medicare HMO plans, please review the plan of care and approve it. It will need to be FAXED BACK to us at [phone] for Medicare purposes. For Medicare only, by signing this I certify the plan of care. Please let me know if there are questions or concerns regarding this plan of care. Physician Signature: Date:
--- NOTE | 2022-11-09 15:31 | HP.PTREVAL ---
Re-Evaluation Intro: MANUELITO MUÑOZ, It has been my pleasure to treat TAMY VITAL over the last 7 visits for PLANTAR FASCITIS LEFT ,POSTERIOR TIBIAL TENDON DYSFUNCTION RIGHT. Please see the progress note below for an update on the physical therapy plan of care! Subjective Subjective: The plantar fascitis is better but cont to have pain ,decrease ROM and weakness right ankle Patient bought new orthotics Objective Objective/Function: POSTURE: frontal plane mechanics ( pes planus), great toe MTP valgus. GAIT: reciprocal pattern. NEURO: denies paresthesia/tingling. PALAPTION: right posterior tibial tendon less l calf tender. AROM: dorsiflexion 5 degrees left , right 3 degrees ,plantar flexion degrees 65 degrees ,inversion right 35 degrees pain ,left 40 degrees , inversion 5. MMT: dorsiflexion 4/5 ,plantar flexion 4/5 , right posterior tibialis 4/5 but pain ,left 4/5 ,G-S 4/5 Plan Plan Plan: REQUESTING 6 MORE VISITS PRECAUTION: LONG STANING H/O ON COUMIDIN ,AND MIXED CONNECTIVE TISSUE DOSORDER FOCUS IN RIGHT ANKLE STRENGTHENING/PROPRIOCEPTION PT INTERVTIONS MANUAL THERAPY STM/STICK /HAWK TO CALF/PLANTAR FASCIA ,US ,FLEXABLITY /STRETCHING TO PLANTAR FASCIA/ CALF DOMINGO RIGHT ANKLE AND STRENGTHENING EX'S Balance/Gait/Functional tests Balance/Special Test Scores Lower Extremity Functional Score: 51 Goals Goals Goal 1:: I with HEP for feet Goal Time Frame: 4-6 Weeks Goal Progress: Goal Met Goal 2:: Patient to improve AROM right ankle WNL with no pain. Goal Time Frame: 4-6 Weeks Goal Progress: Progressing Goal 3:: Patient to demonstrate 70% improvement with less pain and improve function with walking( New goal) Goal Time Frame: 4-6 Weeks Goal 4:: Patient to increase strengthen right ankle to good without pain to improve gait Goal Time Frame: 4-6 Weeks Goal Progress: Progressing Goal 5:: Patient to improve LFES score by 5 points to improve QOL and function.( New goal) Goal Time Frame: 4-6 Weeks Goal Progress: Progressing Anticipated Interventions Anticipated Interventions Patient/Client Instruction: Educate patient on: Condition and Plan of Care For the Purpose of:: To decrease pain, To increase ROM, To improve muscle performance and motor function, To increase tolerance to activity/condition/position, To improve ability of physical actions for home/community/work/leisure, To improve health of tissue, To decrease soft tissue restriction, To increase flexibility/ROM and To improve endurance Therapeutic Exercise to Include: Strength training, Flexibilty training, Passive ROM and Active ROM Comment: FEET For the Purpose of:: To decrease pain, To increase ROM, To improve muscle performance and motor function, To improve ability to perform ADL's, To increase tolerance to activity/condition/position, To improve ability of physical actions for home/community/work/leisure, To improve health of tissue, To decrease soft tissue restriction, To increase flexibility/ROM, To reduce risk of recurrence and To prevent re-injury Manual Therapy Techniques to Include: Massage and Soft tissue mobilization Comment: PLANTAR FASCIA/CALF For the Purpose of:: To decrease pain, To increase ROM, To improve nutrient delivery to tissue, To increase oxygenation perfusion, To improve health of tissue, To decrease soft tissue restriction and To increase flexibility/ROM TENS: Yes IF ES: Yes Cryotherapy (ice pack, ice massage): Yes Thermo therapy (hot pack): Yes Ultrasound (thermal/non thermal): Yes For the Purpose of:: To decrease pain, To improve nutrient delivery to tissue, To increase oxygenation perfusion, To improve gait and locomotor functions, To improve health of tissue and To decrease soft tissue restriction Re-Evaluation Ending Re-evaluation ending: Please do not hesitate to contact me at [phone] by phone or if you have questions or concerns regarding this new plan of care! Sincerely, Rai Beyer, PT, Cert MDT, OCS
--- NOTE | 2022-11-30 16:21 | HP.PTDCSUM ---
Discharge Summary D/C summary: It has been my pleasure to treat TAMY IVTAL referred by MANUELITO MUÑOZ, with the diagnosis of PLANTAR FASCITIS LEFT ,POSTERIOR TIBIAL TENDON DYSFUNCTION RIGHT for a total of 12 visit(s). Discharge Date: 11/30/22 Please see the following information for a summary of their discharge status. Subjective Subjective: Patient states doing better ready for d/c Pain Right Foot: Pain Intensity (Out of 10): 0 Left Foot: Pain Intensity (Out of 10): 0 Overall Improvement % Improvement: 60 Objective Objective/Function: Objective/Function: POSTURE: frontal plane mechanics ( pes planus), great toe MTP valgus. GAIT: reciprocal pattern.. PALAPTION: absent. AROM: dorsiflexion 5 degrees left , right 5 degrees ,plantar flexion degrees 65 degrees ,inversion right 35 degrees pain ,left 40 degrees , inversion 5. MMT: dorsiflexion 4/5 ,plantar flexion 4/5 , right posterior tibialis 4/5 but pain ,left 4/5 ,G-S 4/5 met goals Goals Goal 1:: I with HEP for feet Goal Progress: Goal Met Goal 2:: Patient to improve AROM right ankle WNL with no pain. Goal Progress: Goal Met Goal 3:: Patient to demonstrate 70% improvement with less pain and improve function with walking( New goal) Goal Progress: Goal Met Goal 4:: Patient to increase strengthen right ankle to good without pain to improve gait Goal Progress: Goal Met Goal 5:: Patient to improve LFES score by 5 points to improve QOL and function.( New goal) Goal Progress: Progressing Plan Plan: d/c D/C Information d/c sentence: If there are questions or concerns regarding this patient's physical therapy, please feel free to call me at [phone]. Thank you for the referral of this patient. Sincerely, Rai Beyer, PT, Cert MDT, OCS Balance/Gait/Functional tests Balance/Special Test Scores Lower Extremity Functional Score: 70
== END 2022-11-30 19:00 | disposition home or self-care (01) ==
LOC: PT 15:30
PROVIDERS: PCP Orthopaedic Surgery Orthopaedic Surgery of the Spine
DX: M72.2 Plantar fascial fibromatosis (principal); M76.821 Posterior tibial tendinitis, right leg
CPT/HCPCS: 97035; 97110; 97140; 97161; 97530

== ENCOUNTER 2025-02-20 00:45 | Emergency (ER) | payer BC, SELFPAY ==
[2025-02-20 00:45] VITALS: BP 123/79; PULSE 88; RESP 27; TEMP 36.8; O2SAT 100; BMI 22.0
[2025-02-20] MEDS: 0.9% Normal Saline (1000mL) 1,000 ML 999 ML IV (01:21)
[2025-02-20 01:24] LABS: Hematocrit 35.4 % (37-47); Hemoglobin 10.8 g/dL (12.0-15.0); Immature Granulocytes Count 0.040 X10^3/uL (0.0-0.0); Mean Corp Hgb Conc 30.5 g/dL (32-36); Mean Corpuscular Volume 84.5 fL (81-99); Mean Platelet Vol. 10.6 fl (6.2-12.0); NRBC Flagged by Analyzer 0 % (0-5); Platelet Count 235 K/mm3 (150-450); RBC Distribution Width CV 14.0 % (11.6-14.6); RBC Distribution Width SD 42.6 fl (35.1-43.9); Red Blood Count 4.19 M/mm3 (4.2-5.4); White Blood Count 7.3 K/mm3 (4.4-11.0)
--- NOTE | 2025-02-20 01:30 | RAD_ITS ---
PROCEDURE: CHEST PA AND LATERAL 02/19/2025 REASON FOR EXAM: CHEST PAIN TECHNIQUE: Procedure Code: RADCXR Modality: DX Procedure: CHEST PA AND LATERAL COMPARISON: None FINDINGS: Mild pulmonary interstitial edema. No focal consolidation. No pleural effusion or pneumothorax. Cardiac silhouette is within normal limits. No acute fractures. RAD/Chest PA and Lateral IMPRESSION: Mild pulmonary interstitial edema. No focal consolidation. Reading Location: [id number]
[2025-02-20 01:34] LABS: Prothrombin Time (Protime)PT. 21.5 SECONDS (11.7-14.9)
[2025-02-20 01:40] LABS: Troponin T High Sensitivity < 6 ng/L (<=14)
[2025-02-20 01:41] LABS: Anion Gap 9 (5-15); BUN 14 mg/dL (4-19); BUN/Creat Ratio 20.0 RATIO (10-20); Calcium,Total 8.5 mg/dL (7.6-11.0); Carbon Dioxide 23.8 mmol/L (21.0-32.0); Chloride 105 mmol/L (98-108); Estimated Creatinine Clearance 87.33 ml/min (50-250); Glucose 111 mg/dL (70-99); Magnesium 1.7 mg/dL (1.5-2.2); Potassium 3.8 mmol/L (3.3-5.1)
--- OUTSIDE RECORDS SUMMARY | 2025-02-20 01:41 | XMS RPT_ITS | CCD ---
Author Organization [facility] Care Team Providers Care Internet Researcher Name Role Phone TAYO RODRIGUEZ Admitting Unavailable TAYO RODRIGUEZ Attending Unavailable TAYO RODRIGUEZ Primary Care Unavailable Heike MARIA, Katelyn Tse Unavailable Tayo Rodriguez Unavailable Unavailable Unavailable Unavailable Unavailable Tayo Rodriguez MD Primary Care Provider Crescencio, Achal Jesus Unavailable Unavailable Unavailable Tayo oRdriguez MD Primary Care Provider Crescencio, Achal Jesus Unavailable Tayo Rodriguez MD Primary Care Provider Crescencio, Achal Jesus Unavailable Tayo Rodriguez MD Primary Care Provider Crescencio, Achal Jesus Unavailable Dr. Tayo Rodriguez Referring Unavailable Taliwbhumika, Dr. Dean Attending Unavailable Dr. Tayo Rodriguez Referring Unavailable Michael, Dr. Dean Attending Unavailable Tayo Rodriguez MD Primary Care Provider Tayo Rodriguez MD Unavailable Tayo Rodriguez MD Primary Care Provider RONAK OLIVERA Referring Unavailable TAYO RODRIGUEZ Primary Care Unavailable Crescencio, Achal Jesus Unavailable Dr. Tayo Rodriguez Referring Unavailable Taliwal, Dr. Dean Attending Unavailable Taliwal, Dr. Dean Referring Unavailable Taliwal, Dr. Dean Attending Unavailable Taliwal , Tayo Primary Care Provider Taliwal , Tayo Primary Care Provider [phone] PETEY PATRICIA Referring Unavailable PETEY PATRICIA Attending Unavailable Taliwal, Solomon Primary Care Unavailable Taliwal , [facility] Primary Care Provider [phone] Taliwal , Tayo Unavailable Yo LOPEZ, Glendy Unavailable Unavailable Taliwal , Tayo Unavailable TALIWAL, TAYO Referring Unavailable TALIWAL, TAYO Primary Care Unavailable TALIWAL, TAYO Referring Unavailable TALIWAL, TAYO Primary Care Unavailable TALIWAL, TAYO Referring Unavailable TALIWAL, TAYO Primary Care Unavailable LORA RODRIGUES Attending Unavailable TALIWAL, TAYO Primary Care Unavailable CHACHA JOSE Attending Unavailable TALIWAL, TAYO Primary Care Unavailable TALIWAL, TAYO Attending Unavailable TALIWAL, TAYO Primary Care Unavailable TALIWAL, TYAO Attending Unavailable TALIWAL, TAYO Primary Care Unavailable TALIWAL, TAYO Attending Unavailable TALIWAL, TAYO Primary Care Unavailable TALIWAL, TAYO Primary Care Unavailable TALIWAL, TAYO Referring Unavailable TALIWAL, TAYO Primary Care Unavailable ANJU, ALAN CAROLINE Attending Unavailable ANJU, ALAN CAROLINE Referring Unavailable TALIWAL, TAYO Primary Care Unavailable ESMER FRYE Referring Unavailable TALIWAL, TYAO Primary Care Unavailable STALIN LOYA Referring Unavailable TALIWAL, TAYO Primary Care Unavailable STALIN LOYA Referring Unavailable TALIWAL, TAYO Primary Care Unavailable ANJU, ALAN CAROLINE Referring Unavailable ANJU, ALAN CAROLINE Attending Unavailable TALIWAL, TAYO Primary Care Unavailable ANJU, ALAN CAROLINE Referring Unavailable TALIWAL, TAYO Primary Care Unavailable ANJU, ALAN CAROLINE Referring Unavailable TALIWAL, TAYO Primary Care Unavailable ESMER FRYE Attending Unavailable TALIWAL, TAYO Primary Care Unavailable STALIN LOYA Referring Unavailable TALIWAL, TAYO Primary Care Unavailable TALIWAL, TAYO Primary Care Unavailable CARMELLA CABRERA Attending Unavailable TALIWAL, TAYO Primary Care Unavailable STALIN LOYA Referring Unavailable TALIWAL, TAYO Primary Care Unavailable JOAN SALTER Attending Unavailable TALIWAL, TAYO Primary Care Unavailable ANJU, ALAN CAROLINE Referring Unavailable TALIWAL, TAYO Primary Care Unavailable ANJU, ALAN CAROLINE Referring Unavailable TALIWAL, TAYO Primary Care Unavailable ANJU, ALAN CAROLINE Referring Unavailable TALIWAL, TAYO Primary Care Unavailable STALIN LOYA Referring Unavailable TALIWAL, TAYO Primary Care Unavailable ANJU, ALAN CAROLINE Referring Unavailable TALIWAL, TAYO Primary Care Unavailable ANJU, ALAN CAROLINE Referring Unavailable TALIWAL, TAYO Primary Care Unavailable TALIWAL, TAYO Primary Care Unavailable MIDHA, LORA Referring Unavailable TALIWAL, TAYO Referring Unavailable TALIWAL, TAYO Primary Care Unavailable TALIWAL, TAYO Referring Unavailable TALIWAL, TAYO Primary Care Unavailable PAUL NOEL Attending Unavailable TALIWAL, TAYO Referring Unavailable TALIWAL, TAYO Primary Care Unavailable Allergies Allergy Classification Reported Allergen(s) Allergy Type Date of Onset Reaction(s) Facility Cephalosporins (antibiotic) (1 source) cefdinir Drug Allergy 1 Other: See Comments [facility] Nitroimidazoles (antibiotic) (1 source) metroNIDAZOLE Drug Allergy 8 Intolerance, GI Upset [facility] Work Phone: Zinc Acetate (1 source) Zinc Acetate Drug Allergy 7 [facility] Work Phone: (1 source) AMERIGEL drug allergy [address] [facility] Work Phone: (19 sources) cefdinir; Translations: [Omnicef] Drug Allergy [facility] Work Phone: (20 sources) cefdinir; Translations: [CEFDINIR] Drug Allergy 1 Other: See Toni Salazar [facility] (20 sources) metroNIDAZOLE; Translations: [METRONIDAZOLE] Drug Allergy 8 Intolerance, GI Upset, Hives, Diarrhea, Other, Rash [facility] Work Phone: (20 sources) Zinc Acetate; Translations: [ZINC ACETATE] Drug Allergy 7 Hives [facility] Work Phone: (1 source) metroNIDAZOLE Drug Allergy 3 [facility] (11 sources) Zinc Acetate[place]; Translations: [ZINC ACETATE-[place]] Drug Allergy 7 Rash [facility] Work Phone: Medications Current Medications Medication Drug Class(es) Dates Sig (Normalized) Sig (Original) acetaminophen 325 mg / oxyCODONE hydrochloride 5 mg oral tablet (1 source) Opioid Agonist Start: 03-30-2021 take 1 tablet by mouth every four hours Oxycodone-Acetami nophen (Endocet) 5-325 mg tablet Active 1 TABLET PO Q4H 20 5 March 30, 2021 [id number] 200 actuat albuterol 0.09 mg/actuat metered dose inhaler (20 sources) beta2-Adrenergic Agonist Start: 08-03-2021 take 2 puff(s) by inhalation every four hours albuterol 90 mcg/actuation inhaler Inhale 2 puffs every 4 hours if needed for shortness of breath. 08/03/2021 Active Start: 08-03-2021 take 2 puff(s) by in halation every four to six hours as needed Albuterol Sulfate HFA 108 (90 Base) MCG/ACT Inhalation Aerosol Solution INHALE 2 PUFFS EVERY 4-6 HOURS NEEDED. Quantity: 1 Refills: 0 Ordered: 03-Aug-2021 Tayo Rodriguez MD Start : 03-Aug-2021 Active Start: 08-03-2021 take 2 puff(s) by in halation every four to six hours as needed Albuterol Sulfate HFA 108 (90 Base) MCG/ACT Inhalation Aerosol Solution INHALE 2 PUFFS EVERY 4-6 HOURS NEEDED. Quantity: 1 Refills: 0 Ordered: 03-Aug-2021 Tayo Rodriguez MD Start : 03-Aug-2021 Active ALPRAZolam 0.5 mg oral tablet (15 sources) Benzodiazepine Start: 01-30-2024 End: 12-20-2024 take 1 tablet by mouth twice daily as needed for anxiety ALPRAZolam (Xanax) 0.5 mg tablet Indications: Anxiety Take 1 tablet (0.5 mg) by mouth 2 times a day as needed for anxiety or sleep. 30 tablet 12/20/2024 Active Start: 02-14-2023 take 1 tablet by guicho th three times daily as needed for anxiety ALPRAZolam (Xanax) 0.5 mg tablet Indications: Anxiety Take 1 tablet (0.5 mg) by mouth 3 times a day as needed for anxiety or sleep. 30 tablet 02/14/2023 Active Start: 06-26-2020 ALPRAZolam 1 M G Oral Tablet Quantity: 30 Refills: 0 Ordered: 26-Jun-2020 DO Start : 26-Jun-2020 Complete amoxicillin 875 mg oral tablet (5 sources) Penicillin-class Antibacterial Start: 06-19-2022 End: 06-24-2022 take 1 tablet by mouth twice daily amoxicillin (AMOXIL) 875 mg tablet Take 1 tablet by mouth twice daily for 5 days. 10 tablet 0 06/19/2022 06/24/2022 Active Start: 12-19-2019 Amoxicillin 50 0 MG Oral Capsule Quantity: 30 Refills: 0 Ordered: 19-Dec-2019 DO Start : 19-Dec-2019 Complete Comment on above: Take 1 tablet by guicho th twice daily for 5 days. amoxicillin 875 mg / clavulanate 125 mg oral tablet (18 sources) Penicillin-class Antibacterial Start: End: take 1 tablet by mouth twice daily amoxicillin-pot clavulanate (Augmentin) 875-125 mg tablet Indications: Acute non-recurrent maxillary sinusitis , Sore throat Take 1 tablet (875 mg) by mouth 2 times a day for 10 days. 20 tablet 06/25/2024 07/05/2024 Active Start: 03-24-2024 End: 03-29-2024 take 1 tablet by mouth twice daily amoxicillin-clavulanate potassium (AUGMENTIN) 875-125 mg per tablet Take 875 mg by mouth two times a day. 03/24/2024 03/29/2024 Discontinued Start: 12-13-2022 End: 12-23-2022 take 1 tablet by mouth twice daily amoxicillin-pot clavulanate (Augmentin) 875-125 mg tablet Take 1 tablet (875 mg) by mouth twice a day. 0 12/13/2022 12/23/2022 Start: 12-13-2022 End: 12-23-2022 take 1 tablet by mouth every twelve hours amoxicillin-clavulanic acid (AUGMENTIN) 875-125 mg per tablet Take 1 tablet by mouth every 12 hours for 10 days. 20 tablet 0 12/13/2022 12/23/2022 Active Start: 07-31-2021 End: 10-28-2022 take 1 tablet by mouth in the morning amoxicillin-pot clavulanate (Augmentin) 875-125 mg tablet Indications: Lymphadenopathy of head and neck , Infection of parotid gland Take 1 tablet (875 mg) by mouth in the morning and 1 tablet (875 mg) before bedtime. 28 tablet 0 07/08/2022 10/28/2022 Discontinued (Therapy completed) Comment on above: Take 1 tablet by guicho every 12 hours for 10 days. azithromycin 250 mg oral tablet (5 sources) Macrolide Antimicrobial Start: 10-28-2022 End: 11-02-2022 azithromycin (Zithromax) 250 mg tablet Indications: Sinus congestion , Fever, unspecified fever cause Take 2 tablets (500 mg) by mouth once daily for 1 day, THEN 1 tablet (250 mg) once daily for 4 days. Take 2 tabs (500 mg) by mouth today, than 1 daily for 4 days.. 6 tablet 0 10/28/2022 11/02/2022 Active Start: 06-01-2020 Azithromycin 2 50 MG Oral Tablet take 2 tablets by mouth today then take 1 tablet DAILY FOR 4 DAYS Quantity: 6 Refills: 0 Ordered: 01-Jun-2020 DO Start : 01-Jun-2020 Complete Budesonide / formoterol (20 sources) Corticosteroid, beta2-Adrenergic Agonist Start: 12-20-2024 take 2 puff(s) by mouth twice daily budesonide-formoterol (Symbicort) 160-4.5 mcg/actuation inhaler Indications: ILD (interstitial lung disease) (Multi) , Wheezing Inhale 2 puffs 2 times a day. Rinse mouth with water after use to reduce aftertaste and incidence of candidiasis. Do not swallow. 30.6 g 1 12/20/2024 Active Start: 12-23-2022 End: 12-20-2024 take 2 puff(s) by mouth twice daily budesonide-formoteroL (Symbicort) 160-4.5 mcg/actuation inhaler Indications: Wheezing Inhale 2 puffs 2 times a day. Rinse mouth with water after use to reduce aftertaste and incidence of candidiasis. Do not swallow. 10.2 g 1 12/23/2022 12/20/2024 Discontinued (Reorder) Start: 12-23-2022 take 2 puff(s) by mo [facility] twice daily budesonide-formoterol (SYMBICORT) 160-4.5 mcg/actuation inhaler inhale 2 puffs by mouth twice a day - RINSE MOUTH WITH WATER AFT... (REFER TO PRESCRIPTION NOTES). 12/23/2022 Active Start: 12-23-2022 take 2 puff(s) by mo ut[facility] twice daily budesonide-formoterol (SYMBICORT) 160-4.5 mcg/actuation inhaler inhale 2 puffs by mouth twice a day - RINSE MOUTH WITH WATER AFT... (REFER TO PRESCRIPTION NOTES). 0 12/23/2022 Active Start: 12-23-2022 take 2 puff(s) by mo [facility] twice daily budesonide-formoteroL (Symbicort) 160-4.5 mcg/actuation inhaler Indications: Wheezing Inhale 2 puffs 2 times a day. Rinse mouth with water after use to reduce aftertaste and incidence of candidiasis. Do not swallow. 10.2 g 1 12/23/2022 Active Comment on above: inhale 2 puffs by mo ut[facility] twice a day - RINSE MOUTH WITH WATER AFT... (REFER TO PRESCRIPTION NOTES). cephalexin 500 mg oral capsule (20 sources) Cephalosporin Antibacterial Start: End: take 1 capsule by mouth four times daily cephALEXin (KEFLEX) 500 mg capsule Take 1 capsule by mouth four times daily for 5 days. 20 capsule 03/29/2024 04/03/2024 Active Start: 09-30-2021 End: 08-12-2022 take 1 capsule by mouth twice daily cephALEXin (KEFLEX) 500 mg capsule TAKE 1 CAPSULE BY MOUTH TWICE A DAY FOR 10 DAYS 0 09/30/2021 08/12/2022 Discontinued Start: 08-29-2019 [facility] KEFLEX 250 MG CAPS Take one capsule daily by mouth CEPHALEXIN [id number] Katelyn Burroughs PA-C Comment on above: TAKE 1 CAPSULE BY [facility] TWICE A DAY FOR 10 DAYS clobetasol propionate 0.0005 mg/mg topical ointment (20 sources) Corticosteroid Start: 09-21-2023 clobetasol (Temovate) 0.05 % ointment Indications: Psoriatic arthritis (Multi) Apply topically 2 times a day. 60 g 09/21/2023 Active Start: 04-24-2021 Clobetasol Pro pionate 0.05 % External Ointment APPLY AND GENTLY MASSAGE INTO AFFECTED AREA(S) TWICE DAILY. Quantity: 1 Refills: 0 Ordered: 24-Apr-2021 Tayo Rodriguez MD Start : 24-Apr-2021 Active cyclobenzaprine hydrochloride 10 mg oral tablet (1 source) Muscle Relaxant Start: 06-17-2022 take 10 mg by mouth three times daily Cyclobenzaprine Active 10 MG PO THREE TIMES A DAY June 17, 2022 12:00am 1 ml denosumab 60 mg/ml prefilled syringe (2 sources) RANK Ligand Inhibitor Start: 07-26-2022 End: 10-28-2022 inject 1 mL by subcutaneous injection once denosumab (Prolia) 60 mg/mL syringe Indications: Osteoporosis without current pathological fracture, unspecified osteoporosis type Inject 1 mL (60 mg) under the skin 1 time for 1 dose. 1 mL 1 07/26/2022 10/28/2022 Discontinued (Alternate therapy) DHEA vaginal suppository 13 mg (CPD) (20 sources) Start: 08-12-2022 DHEA vaginal suppository 13 mg (CPD) Unwrap and insert 1 suppository vaginally at bedtime. Refrigerate remainder of package. 90 Suppository 3 08/30/2022 3:55 PM EDT 08/12/2022 Active Start: 08-12-2022 DHEA vaginal s uppository 13 mg (CPD) Unwrap and insert 1 suppository vaginally at bedtime. Refrigerate remainder of package. 90 Suppository 3 08/12/2022 Active Comment on above: Unwrap and insert 1 suppository vaginally at bedtime. Refrigerate remainder of package. doxycycline hyclate 20 mg oral tablet (20 sources) Tetracycline-class Drug Start: take 1 tablet by mouth twice daily doxycycline (Periostat) 20 mg tablet Take 1 tablet (20 mg) by mouth 2 times a day. 12/16/2024 Active Start: 06-17-2020 Oracea 40 MG O ral Capsule Delayed Release Quantity: 30 Refills: 0 Ordered: 17-Jun-2020 DO Start : 17-Jun-2020 Complete End: 02-11-2025 take 1 capsule by mouth once daily in the morning doxycycline (Oracea) [address] capsule Take 1 capsule (40 mg) by mouth once daily in the morning. Do not crush or chew. Take with a full glass of water and do not lie down for at least 30 minutes after. 02/11/2025 Discontinued (Alternate therapy) take 1 capsule by mo [facility] twice daily Doxycycline Monohydrate 40 mg capsule Take 40 mg by mouth twice daily. 0 Active Comment on above: Take 40 mg by mouth twice daily. Take 40 mg by mouth once daily. DULoxetine 20 mg delayed release oral capsule (3 sources) Serotonin and Norepinephrine Reuptake Inhibitor Start: take 1 capsule by mouth once daily DULoxetine (Cymbalta) [address] capsule Indications: Anxiety , MCTD (mixed connective tissue disease) ([facility]) TAKE 1 CAPSULE BY MOUTH EVERY DAY 90 capsule 1 01/15/2025 Active Start: 12-20-2024 take 1 capsule by mo [facility] once daily DULoxetine (Cymbalta) [address] capsule Indications: Anxiety , MCTD (mixed connective tissue disease) ([facility]) Take 1 capsule (20 mg) by mouth once daily. Do not crush or chew. 30 capsule 1 12/20/2024 Active esomeprazole 40 mg delayed release oral capsule (9 sources) Proton Pump Inhibitor take 1 capsule by mouth twice daily esomeprazole (NexIUM) [address] capsule Take 1 capsule (40 mg) by mouth 2 times a day. Do not open capsule. Active fexofenadine (20 sources) Histamine-1 Receptor Antagonist fexofenadine HCl (ERNESTINE ORAL) Take by mouth as needed. Active fexofenadine HCl (ERNESTINE ORAL) Take by mouth as needed. 0 Active Comment on above: Take by mouth as nee ded. fluconazole 150 mg oral tablet (11 sources) Azole Antifungal Start: take 1 tablet by mouth once daily fluconazole (Diflucan) 150 mg tablet Indications: Lymphadenopathy of head and neck Take 1 tablet (150 mg) by mouth once daily. 3 tablet 0 07/08/2022 Active Start: 07-31-2021 take 1 tablet by mouth once Fl uconazole 150 MG Oral Tablet TAKE 1 TABLET 1 TIME ONLY. Quantity: 1 Refills: 0 Ordered: 31-Jul-2021 Tayo Rodriguez MD Start : 31-Jul-2021 Active Start: 05-30-2020 Fluconazole 15 0 MG Oral Tablet Quantity: 1 Refills: 0 Ordered: 30-May-2020 DO Start : 30-May-2020 Complete hydrocortisone 25 mg/ml topical cream (11 sources) Corticosteroid Start: 09-23-2022 hydrocortisone 2.5 % cream apply to THE UPPER LIP AND EYEBROWS twice a day for up to TWO WEEKS then DISCONTINUE 09/23/2022 Active hydroxychloroquine sulfate 200 mg oral tablet (20 sources) Antimalarial, Antirheumatic Agent Start: 10-20-2020 take 1 tablet by mouth once daily hydroxychloroquine (Plaquenil) 200 mg tablet Take 1 tablet (200 mg) by mouth once daily. 10/20/2020 Active Start: 10-20-2020 Hydroxychloroq uine Sulfate 200 MG Oral Tablet Quantity: 180 Refills: 0 Ordered: 20-Oct-2020 DO Start : 20-Oct-2020 Active Start: 04-21-2016 PLAQUENIL TABS take 1 tablet twice daily HYDROXYCHLOROQUINE SULFATE TABS [id number] Pamela Mcclelland MD Start: 08-14-2014 take 200 mg by mouth twice daily Hydroxychloroquine Active 200 MG PO TWICE A DAY August 13, 2014 11:00pm Comment on above: Take 200 mg by mouth once daily. inhalational spacing device ([employer] [facility]) inhaler (2 sources) Start: 12-23-2022 End: 12-23-2023 inhalational spacing device ([employer] [facility]) inhaler Indications: Wheezing , SOB (shortness of breath) Use as instructed 1 each 12/23/2022 12/23/2023 Active Start: 12-23-2022 End: 12-23-2023 inhalational spacing device ([employer] [facility]) inhaler Indications: Wheezing , SOB (shortness of breath) Use as instructed 1 each 0 12/23/2022 12/23/2023 Active ketoconazole 20 mg/ml medicated shampoo (20 sources) Azole Antifungal Start: 01-14-2020 ketoconazole (NIZORAL) 2 % shampoo Ketoconazole 2 % External Shampoo WASH THE SCALP DAILY - LATHER - LEAVE ON FOR 3-5 MINUTES, THEN RINSE Quantity: 120 Refills: 0 Ordered: 29-Jul-2020 DO Start : 14-Jan-2020 Complete 01/14/2020 Active Start: 01-14-2020 End: 09-21-2023 ketoconazole (NIZOral) 2 % s hampoo Apply 1 Application topically 1 (one) time per week. 01/14/2020 09/21/2023 Discontinued (Discontinued by another clinician) Start: 01-14-2020 Ketoconazole 2 % External Shampoo WASH THE SCALP DAILY - LATHER - LEAVE ON FOR 3-5 MINUTES, THEN RINSE Quantity: 120 Refills: 0 Ordered: 29-Jul-2020 DO Start : 14-Jan-2020 Complete Comment on above: Ketoconazole 2 % Ext ernal Shampoo WASH THE SCALP DAILY - LATHER - LEAVE ON FOR 3-5 MINUTES, THEN RINSE Quantity: 120 Refills: 0 Ordered: 29-Jul-2020 DO Start : 14-Jan-2020 Complete montelukast 10 mg oral tablet (20 sources) Leukotriene Receptor Antagonist Start: 09-17-2020 Montelukast Sodium 10 MG Oral Tablet Quantity: 90 Refills: 0 Ordered: 17-Sep-2020 DO Start : 17-Sep-2020 Active Start: 04-16-2019 take 1 tablet by guicho th at bedtime montelukast (Singulair) 10 mg tablet Indications: Mild intermittent asthma without complication ([facility]) TAKE 1 TABLET BY MOUTH AT BEDTIME 90 tablet 11/07/2024 Active Comment on above: Take 10 mg by mouth daily at bedtime. mycophenolic acid 180 mg delayed release oral tablet (20 sources) Antimetabolite Immunosuppressant Start: 025 take 1 tablet by mouth three times daily mycophenolate (Myfortic) 180 mg EC tablet Indications: MCTD (mixed connective tissue disease) ([facility]) , ILD (interstitial lung disease) (Multi) take 1 tablet by mouth three times a day 270 tablet 1 04/23/2024 Active Start: 06-14-2023 take 1 tablet by guicho th three times daily mycophenolate (Myfortic) 180 mg EC tablet Take 1 tablet (180 mg) by mouth 3 times a day. 06/14/2023 Active Start: 12-13-2022 End: 12-13-2023 take 1 tablet by mouth once daily mycophenolate sodium DR (MYFORTIC) 360 mg TbEC Take 1 tablet by mouth once daily. 30 tablet 11 12/13/2022 Active Start: 06-11-2020 take 1 tablet by guicho th twice daily Mycophenolate Sodium 360 MG Oral Tablet Delayed Release take 1 tablet by mouth twice a day Quantity: 60 Refills: 0 Ordered: 12-Jun-2020 DO Start : 11-Jun-2020 Complete take 4 tablets by mo [facility] twice daily, then take 1 tablet by mouth in the morning, then take 3 tablets by mouth in the evening mycophenolate sodium DR (MYFORTIC) 180 mg EC tablet Take 4 tablets by mouth two times a day. One AM 3 PM Active Comment on above: Take 1 tablet by guicho th once daily. nystatin [id number] unt/ml oral suspension (2 sources) Polyene Antifungal Start: 09-26-2023 End: 06-06-2024 take 5 mL by mouth four times daily nystatin (Mycostatin) 100,000 unit/mL suspension Indications: Coated tongue Take 5 mL (500,000 Units) by mouth 4 times a day. Swish in mouth and swallow. 200 mL 09/26/2023 06/06/2024 Discontinued (Therapy completed) Start: 06-30-2022 End: 07-05-2022 nystatin (Mycostatin) 100,00 0 unit/mL suspension Indications: Lymphadenopathy of head and neck Take 5 mL (500,000 Units) by mouth in the morning and 5 mL (500,000 Units) at noon and 5 mL (500,000 Units) in the evening and 5 mL (500,000 Units) before bedtime. Do all this for 5 days. 100 mL 0 06/30/2022 07/05/2022 Active perflutren lipid microsphere s 1.3 mL in NaCl (PF) 0.9% 10 mL injection (DEFINITY) (20 sources) Start: 12-22-2021 End: 03-23-2023 perflutren lipid microsphere s 1.3 mL in NaCl (PF) 0.9% 10 mL injection (DEFINITY) Start: 12-18-2021 End: 03-19-2023 perflutren lipid microsphere s 1.3 mL in NaCl (PF) 0.9% 10 mL injection (DEFINITY) Start: 05-13-2020 End: 08-12-2021 perflutren lipid microsphere s 1.3 mL in NaCl (PF) 0.9% 10 mL injection (DEFINITY) Roflumilast (3 sources) Phosphodiesterase 4 Inhibitor Start: 12-20-2024 roflumilast (Zoryve) 0.3 % cream Indications: Psoriasis Apply 1 Application topically once daily. 60 g 1 12/20/2024 Active sertraline 25 mg oral tablet (20 sources) Serotonin Reuptake Inhibitor Start: 01-26-2024 End: 12-20-2024 take 1 tablet by mouth once daily sertraline (Zoloft) 25 mg tablet Indications: Anxiety Take 1 tablet (25 mg) by mouth once daily. 90 tablet 12/20/2024 Active Start: 12-30-2020 take 1 tablet by guicho once daily Sertraline HCl - 25 MG Oral Tablet TAKE 1 TABLET EVERY DAY Quantity: 90 Refills: 0 Ordered: 30-Dec-2020 Tayo Rodriguez MD Start : 30-Dec-2020 Active Start: 09-19-2020 Sertraline HCl - 50 MG Oral Tablet Quantity: 90 Refills: 0 Ordered: 19-Sep-2020 DO Start : 19-Sep-2020 Complete Start: 06-23-2020 Sertraline HCl - 25 MG Oral Tablet Quantity: 30 Refills: 0 Ordered: 23-Jun-2020 DO Start : 23-Jun-2020 Complete 125 ml sodium chloride 9 mg/ ml prefilled syringe (20 sources) Start: 12-18-2021 End: 03-23-2023 sodium chloride 0.9 % (flush ) 10 mL (BD POSIFLUSH) Start: 05-13-2020 End: 08-12-2021 sodium chloride 0.9 % (flush ) 10 mL (BD POSIFLUSH) [employer]pi[employer]eters [employer] gary (20 sources) Start: 10-12-2021 Spirometers an d Accessories gary 1 Device four times daily. 1 Each 10/12/2021 Active Start: 10-12-2021 Spirometers an d Accessories gary 1 Device four times daily. 1 Each 0 10/12/2021 Active Comment on above: 1 Device four times daily. warfarin sodium 1 mg oral tablet (20 sources) Vitamin K Antagonist Start: 11-07-2024 take 1-2 tablets by mouth once daily warfarin (Coumadin) 1 mg tablet Indications: Blood clotting disorder ([facility]) TAKE 1 TO 2 TABLET BY MOUTH ONCE DAILY 180 tablet 11/07/2024 Active Start: 05-08-2024 take 1-2 tablets by mouth once daily warfarin (Coumadin) 1 mg tablet Indications: Blood clotting disorder (Multi) take 1 to 2 tablet by mouth once daily 180 tablet 05/08/2024 Active Start: 08-31-2023 take 1 tablet by guicho th once daily warfarin (Coumadin) 1 mg tablet Indications: Blood clotting disorder (Multi) TAKE ONE TABLET BY MOUTH ONCE DAILY 90 tablet 1 08/31/2023 Active Start: 11-23-2022 take 1 tablet by guicho th once daily warfarin (Coumadin) 1 mg tablet Indications: Blood clotting disorder (CMS/HCC) 1 tablet orally daily 90 tablet 1 11/23/2022 Active Start: 08-15-2022 take 1 tablet by guicho th once daily in the evening warfarin (Coumadin) 3 mg tablet Indications: Secondary hypercoagulable state (Multi) Take 1 tablet (3 mg) by mouth once daily in the evening. 90 tablet 2 08/15/2022 Active Start: 07-15-2022 take 1 tablet by guicho th once daily warfarin (Coumadin) 1 mg tablet Indications: Blood clotting disorder (CMS/HCC) take 1 tablet by mouth once daily IN ADDITION TO 5MG DOSE 90 tablet 1 07/15/2022 Active Start: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 Onset: 3 09-18-2012 Episodic Diseases of mouth; excluding dental (13 sources) Furred tongue; Translations: [Hypertrophy of tongue papillae] Onset: 4 09-21-2023 Episodic Lymphadenitis (5 sources) Generalized enlarged lymph nodes; Translations: [Head and neck lymphadenopathy] Onset: 3 07-08-2022 Episodic Menopausal disorders (20 sources) Drug therapy status; Translations: [Hormone replacement therapy] Onset: 3 Episodic Menstrual disorders (20 sources) Menorrhagia; Translations: [Excessive and frequent menstruation with regular cycle] Onset: 3 Resolved: 3 10-09-2012 Chronic Mycoses (20 sources) Onychomycosis due to dermatophyte ; Translations: [Tinea unguium] Onset: 8 06-15-2007 Episodic Neoplasms of unspecified nature or uncertain behavior (20 sources) Immunosecretory disorder; Translations: [Monoclonal gammopathy] Onset: 9 Resolved: 0 04-07-2010 Chronic Open wounds of extremities (20 sources) Open wound of finger with complication; Translations: [Unspecified open wound of unspecified finger without damage to nail, initial encounter] Onset: 6 Resolved: 3 04-12-2006 Episodic Other aftercare (20 sources) Long-term current use of anticoagulant; 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] Onset: 1 10-23-2010 Episodic Other endocrine disorders (20 sources) Hyperparathyroidism; Translations: [Hyperparathyroidism, unspecified] Onset: 4 Resolved: 5 05-29-2013 Chronic Other female genital disorders (20 sources) Polyp of corpus uteri; Translations: [Polyp of corpus uteri] Onset: 8 02-08-2018 Episodic Other fractures (20 sources) Fracture of rib; Translations: [Fracture of one rib, unspecified side, initial encounter for closed fracture] Onset: 5 Resolved: 3 06-19-2014 Episodic Other gastrointestinal disorders (20 sources) Abdominal bloating; Translations: [Abdominal distension (gaseous)] Onset: 8 02-08-2018 Episodic Other injuries and conditions due to external causes (20 sources) Contusion; Translations: [Contusion of unspecified site] Onset: 3 Resolved: 3 07-08-2022 Episodic Other nervous system disorders (20 sources) Phlebitis of intracranial venous sinus; Translations: [Intracranial and intraspinal phlebitis and thrombophlebitis] Onset: 6 Resolved: 3 06-11-2005 Episodic Other nervous system disorders (3 sources) Phlebitis and thrombophlebitis of intracranial sinuses; Translations: [Intracranial and intraspinal phlebitis and thrombophlebitis] Onset: 6 Resolved: 3 07-08-2022 Episodic Other non-traumatic joint disorders (20 sources) Hand joint pain; Translations: [Pain in joints of unspecified hand] Onset: 6 Resolved: 3 04-12-2006 Episodic Other non-traumatic joint disorders (17 sources) Joint pain; Translations: [Pain in joint, site unspecified] Onset: 3 Resolved: 3 07-08-2022 Episodic Other nutritional; endocrine; and metabolic disorders (20 sources) Hypercalcemia; Translations: [Hypercalcemia] Onset: 4 Resolved: 3 04-25-2013 Chronic Other screening for suspected conditions (not mental disorders or infectious disease) (20 sources) Patient encounter status; Translations: [Breast screening, unspecified] Onset: 5 Resolved: 3 05-29-2004 Episodic Other skin disorders (20 sources) Cystic acne; Translations: [Other acne] Onset: 3 07-08-2022 Episodic Other skin disorders (16 sources) Eruption; Translations: [Rash and other nonspecific skin eruption] Onset: 3 Resolved: 5 07-08-2022 Episodic Other upper respiratory disease (20 sources) Crusting on nose; Translations: [Other specified disorders of nose and nasal sinuses] Onset: 5 Resolved: 3 06-19-2014 Episodic Other upper respiratory infections (9 sources) Recurrent sinusitis; Translations: [Chronic sinusitis, unspecified] Onset: 4 Resolved: 5 09-21-2023 Chronic Phlebitis; thrombophlebitis and thromboembolism (20 sources) H/O: Deep vein thrombosis; Translations: [Personal history of venous thrombosis and embolism] Onset: 8 Resolved: 3 05-12-2007 Episodic Residual codes; unclassified (4 sources) Asymptomatic menopausal state; Translations: [Asymptomatic menopausal state] Onset: 5 Episodic Skin and subcutaneous tissue infections (20 sources) Disorder of nail; Translations: [Cellulitis of unspecified toe] Onset: 7 08-16-2006 Episodic Spondylosis; intervertebral disc disorders; other back problems (20 sources) Neck pain; Translations: [Cervicalgia] Onset: 8 Resolved: 3 11-09-2007 Episodic Unclassified (1 source) Problem Unclassified (10 sources) Onset: 3 Resolved: 5 12-23-2022 Results Test Name Value Interpretation Reference Range Facility LUNG DIFFUSION CAPACITY (THEO O)on 01-29-2025 LUNG DIFFUSION CAPACITY (DLCO) [facility] [address] [place] [address] Test Date: 2025-01-29 Pat Name: TAMY LANERA Department: Room: 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 Start of test and EOFE criteria met. Current ATS/ERS acceptability and repeatability standards for DLCO met with 2 acceptable maneuvers. DLCO is hemoglobin corrected. Hemoglobin obtained from [facility] on 01/21/25.PT used tongue depressor mouthpiece during testing//JR IMPRESSION: Spirometry indicates no obstruction. The reduced FVC could indicate restriction, recommend lung volumes for definitive determination. The diffusing capacity (corrected for hemoglobin) is reduced. The kCO (DLCO/VA) reflects a normal transfer/diffusion of CO from the alveolar regions to the blood. Clinical correlation recommended. Electronically Signed On 01-29-2025 15:54:18 EDT by Seun Ireland MD ID: [id number] Name: TAMY VAZQUEZ Ann Race: Other Ht: 63.39 in Wt: 117.95 lbs Age: 44 Gender: Female : 1980 Dx: Secondary pulmonary arterial hypertension Smoking Hx: Non-smoker Doctor: ALAN RENE Test Date: 01/29/2025 [place] [facility] [place] Tech: Rai Parker PRE-BRONCH POST-BRONCH Chang LLN Pred ULN %Pred ZScore Chang %Pred %Chg ZScore SPIROMETRY FVC 1.74 2.47 3.27 4.08 53 -3.18 FEV1 1.40 2.02 2.70 3.34 51 -3.05 FEV1/FVC 0.80 0.71 0.82 0.91 97 -0.32 FEFMax 4.48 5.11 6.79 8.47 66 -2.26 FEF50 1.69 2.05 3.66 5.27 46 -2.02 FIF50 1.67 FEF50/FIF50 1.01 90-100 FIVC 1.67 VXN76-95 1.31 1.63 2.78 4.21 47 -2.19 ExpiredTime 5.13 TimeToFEFMax 0.08 EDE 0.05 VolExtrap% 3 LUNG DIFFUSION DLCOunc 10.46 16.33 20.75 26.03 50 -4.46 DLCOStdPB 10.30 16.33 20.75 26.03 49 -4.55 DLCORefHb 10.30 18.88 54 VA 2.43 3.91 4.75 5.67 51 -5.03 Kco 4.31 3.46 4.41 5.47 97 -0.16 Hgb 10.80 12-18 Comments: Current ATS/ERS acceptability and repeatability standards for spirometry met. Start of test and EOFE criteria met. Current ATS/ERS acceptability and repeatability standards for DLCO met with 2 acceptable maneuvers. DLCO is hemoglobin corrected. Hemoglobin obtained from [facility] on 01/21/25.PT used tongue depressor mouthpiece during testing//JR FVC_PRE (L) : 1.74 L FVC_PRED (L) : 3.27 L FVC_LLN (L) : 2.47 L FVC_ULN (L) : 4.08 L FEV1_PRE (L) : 1.40 L FEV1_PRED (L) : 2.70 L FEV1_LLN (L) : 2.02 L FEV1_ULN (L) : 3.34 L FEV1/FVC_PRE (%) : 80 % FEV1/FVC_PRED (%) : 82 % FEV1/FVC_LLN (%) : 71 % KES61_QLB (L/S) : 4.23 L/S HBO46_NQL (L/S) : 0.46 L/S HFM34_GRPV (L/S) : 1.02 L/S ZNR95_DYT (L/S) : 0.48 L/S YID55_VWC (L/S) : 1.98 L/S VOU72-86%_PRE (L/S) : 1.31 L/S IMX53-92%_PRED (L/S) : 2.78 L/S JPX53-96%_LLN (L/S) : 1.63 L/S PEF_PRE (L/S) : 4.48 L/S PEFMAX_LLN (L/S) : 5.11 L/S PEFMAX_ULN (L/S) : 8.47 L/S SVC_PRED (L) : 3.27 L/S SVC_LLN (L) : 2.47 L/S SVC_ULN (L/S) : 4.08 L/S IC_PRED (L) : 2.18 L/S ERV_PREDICTED (L) : 1.09 L/S DLCO (ML/MIN/MMHG) : 10.46 ml/min/mmHg DLCO_PRED (ML/MIN/MMHG) : 20.75 ml/min/mmHg DLCO_LLN(ML/MIN/MMHG) : 16.33 ml/min/mmHg DLCO_ULN (ML/MIN/MMHG) : 26.03 ml/min/mmHg FET_PRE (S) : 5.13 S VA (L) : 2.43 L VA_PRD (L) : 4.75 L DLCO/VA (ML/MIN/MMHG/L) : 0.04 ml/min/mmHg/L DLCO_VA_PRED (L) : 0.05 ml/min/mmHg/L DLCOCOR (ML/MIN/MMHG) : 10.46 ml/min/mmHg DLCOCOR_PRED (ML/MIN/MMHG) : 18.88 ml/min/mmHg DLCO/VACOR (ML/MIN/MMHG/L) : 0.04 ml/min/mmHg/L Normal [facility] SPIROMETRY BASELINE ONLYon 1 SPIROMETRY BASELINE ONLY [facility] [address] [facility], [place] [address] Test Date: 2025-01-29 Pat Name: TAMY VAZQUEZ Department: Room: 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 Start of test and EOFE criteria met. Current ATS/ERS acceptability and repeatability standards for DLCO met with 2 acceptable maneuvers. DLCO is hemoglobin corrected. Hemoglobin obtained from [facility] on 01/21/25.PT used tongue depressor mouthpiece during testing//JR IMPRESSION: Spirometry indicates no obstruction. The reduced FVC could indicate restriction, recommend lung volumes for definitive determination. The diffusing capacity (corrected for hemoglobin) is reduced. The kCO (DLCO/VA) reflects a normal transfer/diffusion of CO from the alveolar regions to the blood. Clinical correlation recommended. Electronically Signed On 01-29-2025 15:54:18 EDT by Seun Ireland MD ID: [id number] Name: TAMY VAZQUEZ Race: Other Ht: 63.39 in Wt: 117.95 lbs Age: 44 Gender: Female : 1980 Dx: Secondary pulmonary arterial hypertension Smoking Hx: Non-smoker Doctor: ALAN RENE Test Date: 01/29/2025 Site: [facility] [place] Tech: Rai Parker PRE-BRONCH POST-BRONCH Chang LLN Pred ULN %Pred ZScore Chang %Pred %Chg ZScore SPIROMETRY FVC 1.74 2.47 3.27 4.08 53 -3.18 FEV1 1.40 2.02 2.70 3.34 51 -3.05 FEV1/FVC 0.80 0.71 0.82 0.91 97 -0.32 FEFMax 4.48 5.11 6.79 8.47 66 -2.26 FEF50 1.69 2.05 3.66 5.27 46 -2.02 FIF50 1.67 FEF50/FIF50 1.01 90-100 FIVC 1.67 FNX75-58 1.31 1.63 2.78 4.21 47 -2.19 ExpiredTime 5.13 TimeToFEFMax 0.08 EDE 0.05 VolExtrap% 3 LUNG DIFFUSION DLCOunc 10.46 16.33 20.75 26.03 50 -4.46 DLCOStdPB 10.30 16.33 20.75 26.03 49 -4.55 DLCORefHb 10.30 18.88 54 VA 2.43 3.91 4.75 5.67 51 -5.03 Kco 4.31 3.46 4.41 5.47 97 -0.16 Hgb 10.80 12-18 Comments: Current ATS/ERS acceptability and repeatability standards for spirometry met. Start of test and EOFE criteria met. Current ATS/ERS acceptability and repeatability standards for DLCO met with 2 acceptable maneuvers. DLCO is hemoglobin corrected. Hemoglobin obtained from [facility] on 01/21/25.PT used tongue depressor mouthpiece during testing//JR Normal [facility] CT ABD/PEL WO IVCONon 2024 CT ABD/PEL WO IVCON * * *Final Report* * * DATE OF EXAM: Jan 24 2025 8:43AM [facility] 0531 - CT ABD/PEL WO IVCON / PROCEDURE REASON: LLQ AND LEFT FLANK ABD PAIN AND ANEMIA * * * * Physician Interpretation * * * * EXAMINATION: CT ABDOMEN AND PELVIS WITHOUT IV CONTRAST CLINICAL HISTORY: 44-year-old woman with left lower quadrant/flank pain and anemia TECHNIQUE: Non-IV contrast imaging of the abdomen and pelvis was performed using standard technique, scanning from just above the dome of the diaphragm to the symphysis pubis. Unenhanced imaging is limited for the evaluation of some intra-abdominal and pelvic pathology. MQ: CTAPWO_3 Contrast: No IV or oral contrast was administered. CT Radiation dose: Integrated Dose-length product (DLP) for this visit = 316 mGy*cm. CT Dose Reduction Employed: Automated exposure control(AEC) and iterative recon COMPARISON: 03/27/2020 RESULT: Abdomen / Pelvis: Liver: Unremarkable. Biliary: The gallbladder is unremarkable. Spleen: No splenomegaly. Pancreas: Unremarkable. Adrenals: No mass. Kidneys: No hydronephrosis or finding to suggest a cyst or mass in the unenhanced kidney. Bilateral nonobstructing calculi measuring up to 3 mm in the left interpolar region (7:61). No ureteral calculi. GI Tract: No bowel dilation. Lymph Nodes: No lymphadenopathy. Mesentery/peritoneum: No ascites. Retroperitoneum: No mass. No hematoma. Vasculature: No abdominal aortic or iliac artery aneurysm. Pelvis: No mass or ascites. Bones/Soft Tissues: No acute abnormality. Lower thorax: Chronic dilation of the visualized distal esophagus and honeycombing at the lung bases appear similar to CT chest 12/20/2024. Localizer images: No additional findings. IMPRESSION: No acute process in the abdomen or pelvis. Bilateral nonobstructing nephrolithiasis. No ureteral calculus or hydronephrosis. 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 Machine Operator: PSCB Transcribe Date/Time: Jan 24 2025 9:15A Dictated by : GRETEL HERNANDEZ MD This examination was interpreted and the report reviewed and electronically signed by: GRETEL HERNANDEZ MD on Jan 24 2025 9:20AM EST [id number] Normal [facility] CNOVon 01-22-2025 CNOV Office Visit ([facility]) -------- TAMY VAZQUEZ ([id number]) 1980 F Date Time Provider Department 01/22/25 11:00 AM JOAN SALTER During your visit today, we recorded the following information about you: Temperature Pulse Respiration Blood pressure 97 degrees 72/minute 18/minute 99/68 Weight 54 kg Joan Salter, KARIN.MALE INFERTILITY SPECIALIST 01/22/2025 11:31 AM Signed [facility] Subjective Tamy Juarez Taylor is a 44 year old female. Patient presents with: Abdominal Pain: Left side, lower side and into front area pain had some diarrhea and feels bloated x 4 days Abdominal Pain The patient is a 44-year-old female presenting with left-sided back pain and bloating x4 days. Left-Sided Flank Pain and Bloating: - Onset 4 days ago. - Uncertain if pain is muscular or internal. - Pain localized to the left flank area. - Denies dysuria, urinary frequency, emesis, fevers, or chills. - Postmenopausal; no recent menstrual periods. 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 - Started a new supplement, Sea Garcia, for 2 days before symptoms began; has not taken it for the past 2 days. Review of Systems Gastrointestinal: Positive for abdominal pain. Constitutional: (-) fever, (-) chills Gastrointestinal: (+) abdominal bloating Genitourinary: (+) flank pain, (-) dysuria, (-) urinary frequency Objective BP 99/68 Pulse 72 Temp 36.1 ?C (97 ?F) Resp 18 Wt 54 kg (119 lb 0.8 oz) LMP 03/23/2020 (Exact Date) SpO2 100% BMI 23.25 kg/m? 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 - Endometriosis, site unspecified Endometriosis - Esophageal reflux - hx of low vitamin D recheck normal - Hyperparathyroidism (HCC) 2014 parathyroidectomy - Menorrhagia fibroids UFE - Nephrolithiasis - Osteoporosis 05/2022 with LOSS T-score -3.0 08/2022 nl urine calcium 260 - Peripheral vascular disease - Personal history of unspecified urinary disorder - PMH - PAST MEDICAL HISTORY OF 04/18/2005 blood clot internal jugular vein, 4 weeks diagnosed - Protein S deficiency (HCC) 05/19/2002 cavernous sinus thrombosis 4 week - Raynaud's syndrome CTD plaquenil - Rib fracture 06/19/2014 - Seasonal allergies - Uterine fibroid s/p UFE PAST SURGICAL HISTORY Procedure Laterality Date - EMBOLIZATION UTERINE FIBROID 03/18/2013 - LAPAROSCOPIC APPENDECTOMY 03/30/2021 - LAPS ABD PRTMANDOMENTUM DX W/WO SPEC BR/WA SPX 04/18/2004 Laparoscopy for endometriosis at [place] Dr [facility]iman at [facility], no control afterward, ++relief and + relief with surgery, laser - PARATHYROIDECTOMY/EXPLOR ATION PARATHYROIDS 08/05/2014 - PT ED ENDOCRINOLOGY 2016 - RECLAST INJECTION for 1st one via endo 08/2022 ALLERGIES Amerigel [Zinc Acetate], Cefdinir, and Flagyl [Metronidazole] MEDICATIONS - sertraline (ZOLOFT) 25 mg tablet Take 25 mg by mouth once daily. - mycophenolate sodium DR (MYFORTIC) 180 mg EC tablet Take 4 tablets by mouth two times a day. One AM 3 PM - budesonide-formoterol (SYMBICORT) 160-4.5 mcg/actuation inhaler inhale 2 puffs by mouth twice a day - RINSE MOUTH WITH WATER AFT... (REFER TO PRESCRIPTION NOTES). - mycophenolate sodium DR (MYFORTIC) 360 mg TbEC Take 1 tablet by mouth once daily. - DHEA vaginal suppository 13 mg (CPD) Unwrap and insert 1 suppository vaginally at bedtime. Refrigerate remainder of package. - Cholecalciferol, Vitamin D3, (VITAMIN D) 25 mcg (1,000 unit) cap Take 2 capsules by mouth once daily. - ketoconazole (NIZORAL) 2 % shampoo Ketoconazole 2 % External Shampoo WASH THE SCALP DAILY - LATHER - LEAVE ON FOR 3-5 MINUTES, THEN RINSE Quantity: 120 Refills: 0 Ordered: 29-Jul-2020 DO Start : 14-Jan-2020 Complete - Spirometers and Accessories gary 1 Device four times daily. - warfarin (COUMADIN) 2 mg tablet Take 1.5 tablets by mouth daily as directed. - montelukast (SINGULAIR) 10 mg tablet Take 10 mg by mouth daily at bedtime. - fexofenadine HCl (ERNESTINE ORAL) Take by mouth as needed. - Doxycycline Monohydrate 40 mg capsule Take 40 mg by mouth once daily. - hydrOXYchloroQUINE (PLAQUENIL) 200 mg tablet Take 200 mg by mouth once daily. FAMILY HISTORY Problem Relation Age of Onset - other (hysterectomy) Mother - Osteoporosis Mother - Asthma Mother - Hypertension Father - Diabetes Father - other (seasonal allergies) Brother - No Known Problems Maternal Grandmother - No Known Problems Maternal Grandfather - No Known Problems Paternal Grandmother - Heart Attack Paternal Grandfather - ADD/ADHD Son SOCIAL HISTORY[1] Physical Exam General: No acute distress. Resp: No crackles. Back: No costovertebral angle tenderness. Abd: Left-sided tenderness to pal (more content not included)... Normal [facility] GABRIEL BY IFA SCREENon 01-22-20 25 Nuclear Ab pattern (S) [Interp] Nuclear fine speckled Normal [facility] Comment on above: Order Comment: Speci men Type: BLOOD SPECIMENOrdering Facility: [facility] Address: [address] [place] [address] Performed By: #### A NAIFS ####[facility]ENTERIA [id number] [place] [address] [place] Nuclear Ab Ql (S) Positive Abnormal Negative [facility] Comment on above: Order Comment: Speci men Type: BLOOD SPECIMENOrdering Facility: [facility] Address: [address] [place] [address] Result Comment: Anti -nuclear antibody test is used as an aid in diagnosis of systemic autoimmune diseases. Where positive and clinically warranted, follow-up using disease-specific testing is recommended. Low positive titers are not uncommon with advanced age, certain chronic infections, and malignancies among others. Test methodology: Indirect fluorescence immunoassay (IFA) using HEp-2 cells. 1:640 Performed By: #### A NAIFS ####[facility] LABIA [id number] [place] [address] [place] C3 SerPl-mCncon 01-21-2025 Complement C3 [Mass/Vol] 84 mg/dL Low 86-166 [facility] Comment on above: Order Comment: Speci men Type: BLOOD SPECIMENOrdering Facility: [facility] Address: [address] [place] [address] Performed By: #### 1 988-5, 2885-2, 31317-0, 4498-2, 4485-9 ####[facility] [id number] [place] [id number] [place] C4 SerPl-mCncon 01-21-2025 Complement C4 [Mass/Vol] 10 mg/dL Low 13-46 [facility] Comment on above: Order Comment: Speci men Type: BLOOD SPECIMENOrdering Facility: [facility] Address: [address] [place] [address] Performed By: #### 1 988-5, 2885-2, 83052-3, 4498-2, 4485-9 ####[facility] LABCLIA [id number] [place] [address] [place] CBC W Auto Differential pane l (Bld)on 01-21-2025 Basophils (Bld) [#/Vol] 10*3/uL Normal <0.11 [facility] Comment on above: Order Comment: Speci men Type: BLOOD SPECIMENOrdering Facility: [facility] Address: [address] [place] [address] Performed By: #### 5 7021-8 ####[facility] CENTERWNCLIA [id number] [place] [address] [place] Basophils/100 WBC (Bld) 0.5 % Normal [facility] Comment on above: Order Comment: Speci men Type: BLOOD SPECIMENOrdering Facility: [facility] Address: [address] [place] [address] Performed By: #### 5 7021-8 ####[facility] HAMILTONLIA [id number] [place] [address] [place] Differential cell count method Nom (Bld) Auto Normal [facility] Comment on above: Order Comment: Speci men Type: BLOOD SPECIMENOrdering Facility: [facility] Address: [address] [place] [address] Performed By: #### 5 7021-8 ####[facility] MILLWNCLIA [id number] [place] [address] [place] Eosinophils (Bld) [#/Vol] 0.10 10*3/uL Normal <0.46 [facility] Comment on above: Order Comment: Speci men Type: BLOOD SPECIMENOrdering Facility: [facility] Address: [address] [place] [address] Performed By: #### 5 7021-8 ####[facility] MILLWOHLIA [id number] [place] [address] [place] Eosinophils/100 WBC (Bld) 2.3 % Normal [facility] Comment on above: Order Comment: Speci men Type: BLOOD SPECIMENOrdering Facility: [facility] Address: [address] [place] [address] Performed By: #### 5 7021-8 ####[facility] [id number] [place] [address] [place] Erythrocyte distribution width (RBC) [Ratio] 14.3 % Normal 11.5-15.0 [facility] Comment on above: Order Comment: Speci men Type: BLOOD SPECIMENOrdering Facility: [facility] Address: [address] [place] [address] Performed By: #### 5 7021-8 ####[facility]ITALTAMNaeem [id number] [place] [address] [place] Hematocrit (Bld) [Volume fraction] 33.7 % Low 36.0-46.0 [facility] Comment on above: Order Comment: Speci men Type: BLOOD SPECIMENOrdering Facility: [facility] Address: [address] [place] [address] Performed By: #### 5 7021-8 ####[facility] [id number] [place] [address] [place] Hemoglobin (Bld) [Mass/Vol] 10.8 g/dL Low 11.5-15.5 [facility] Comment on above: Order Comment: Speci men Type: BLOOD SPECIMENOrdering Facility: [facility] Address: [address] [place] [address] Performed By: #### 5 7021-8 ####[facility]PITALNCLI [id number] [place] [address] [place] Immature granulocytes (Bld) [#/Vol] 10*3/uL Normal <0.10 [facility] Comment on above: Order Comment: Speci men Type: BLOOD SPECIMENOrdering Facility: [facility] Address: [address] [place] [address] Performed By: #### 5 7021-8 ####[facility] BRENNONHaydeeNCLIA [id number] [place] [address] [place] Immature granulocytes/100 WBC (Bld) 0.5 % Normal [facility] Comment on above: Order Comment: Speci men Type: BLOOD SPECIMENOrdering Facility: [facility] Address: [address] [place] [address] Performed By: #### 5 7021-8 ####[facility] [id number] [place] [address] [place] Lymphocytes (Bld) [#/Vol] 1.14 10*3/uL Normal 1.00-4.00 [facility] Comment on above: Order Comment: Speci men Type: BLOOD SPECIMENOrdering Facility: [facility] Address: [address] [place] [address] Performed By: #### 5 7021-8 ####[facility] [id number] [place] [address] [place] Lymphocytes/100 WBC (Bld) 25.7 % Normal [facility] Comment on above: Order Comment: Speci men Type: BLOOD SPECIMENOrdering Facility: [facility] Address: [address] [place] [address] Performed By: #### 5 7021-8 ####[facility]ILTONLIA [id number] [place] [address] [place] MCH (RBC) [Entitic mass] 26.3 pg Normal 26.0-34.0 [facility] Comment on above: Order Comment: Speci men Type: BLOOD SPECIMENOrdering Facility: [facility] Address: [address] [place] [address] Performed By: #### 5 7021-8 ####[facility] CENTERWNCLIA [id number] [place] [address] [place] MCHC (RBC) [Mass/Vol] 32.0 g/dL Normal 30.5-36.0 [facility] Comment on above: Order Comment: Speci men Type: BLOOD SPECIMENOrdering Facility: [facility] Address: [address] [place] [address] Performed By: #### 5 7021-8 ####[facility]TONLIA [id number] [place] [address] [place] MCV (RBC) [Entitic vol] 82.2 fL Normal 80.0-100.0 [facility] Comment on above: Order Comment: Speci men Type: BLOOD SPECIMENOrdering Facility: [facility] Address: [address] [place] [address] Performed By: #### 5 7021-8 ####[facility] [id number] [place] [address] [place] Monocytes (Bld) [#/Vol] 0.38 10*3/uL Normal <0.87 [facility] Comment on above: Order Comment: Speci men Type: BLOOD SPECIMENOrdering Facility: [facility] Address: [address] [place] [address] Performed By: #### 5 7021-8 ####[facility] [id number] [address] [place] Monocytes/100 WBC (Bld) 8.6 % Normal [facility] Comment on above: Order Comment: Speci men Type: BLOOD SPECIMENOrdering Facility: [facility] Address: [address] [place] [address] Performed By: #### 5 7021-8 ####[facility] [id number] [place] [address] [place] Neutrophils (Bld) [#/Vol] 2.78 10*3/uL Normal 1.45-7.50 [facility] Comment on above: Order Comment: Speci men Type: BLOOD SPECIMENOrdering Facility: [facility] Address: [address] [place] [address] Performed By: #### 5 7021-8 ####[facility]TONLIA [id number] [place] [address] [place] Neutrophils/100 WBC (Bld) 62.4 % Normal [facility] Comment on above: Order Comment: Speci men Type: BLOOD SPECIMENOrdering Facility: [facility] Address: [address] [place] [address] Performed By: #### 5 7021-8 ####[facility]ITALNCCAST[facility] [id number] [place] [address] [place] Nucleated RBC (Bld) [#/Vol] 10*3/uL Normal <0.01 [facility] Comment on above: Order Comment: Speci men Type: BLOOD SPECIMENOrdering Facility: [facility] Address: [address] [place] [address] Performed By: #### 5 7021-8 ####[facility] HOSPITALNCLI [id number] [place] [address] [place] Nucleated RBC/100 WBC (Bld) [Ratio] 0.0 /100 WBC Normal [facility] Comment on above: Order Comment: Speci men Type: BLOOD SPECIMENOrdering Facility: [facility] Address: [address] [place] [address] Performed By: #### 5 7021-8 ####[facility]ITALNCLI [id number] [place] [address] [place] Platelet mean volume (Bld) [Entitic vol] 10.1 fL Normal 9.0-12.7 [facility] Comment on above: Order Comment: Speci men Type: BLOOD SPECIMENOrdering Facility: [facility] Address: [address] [place] [address] Performed By: #### 5 7021-8 ####[facility] YASMINNCLIA [id number] [place] [address] [place] Platelets (Bld) [#/Vol] 209 10*3/uL Normal 150-400 [facility] Comment on above: Order Comment: Speci men Type: BLOOD SPECIMENOrdering Facility: [facility] Address: [address] [place] [address] Performed By: #### 5 7021-8 ####[facility] BEVNCLIA [id number] [place] [address] [place] RBC (Bld) [#/Vol] 4.10 10*6/uL Normal 3.90-5.20 [facility] Comment on above: Order Comment: Speci men Type: BLOOD SPECIMENOrdering Facility: [facility] Address: [address] [place] [address] Performed By: #### 5 7021-8 ####[facility] BRENNONLEE CENTERNCLIA [id number] [place] [address] [place] WBC (Bld) [#/Vol] 4.44 10*3/uL Normal 3.70-11.00 [facility] Comment on above: Order Comment: Speci men Type: BLOOD SPECIMENOrdering Facility: [facility] Address: [address] [place] [address] Performed By: #### 5 7021-8 ####[facility]ITALNCLIA [id number] [place] [address] [place] CRP [facility] CRP [Mass/Vol] 0.3 mg/dL Normal <0.9 [facility] Comment on above: Order Comment: Speci men Type: BLOOD SPECIMENOrdering Facility: [facility] Address: [address] [place] [address] Performed By: #### 1 988-5, 2885-2, 56607-0, 4498-2, 4485-9 ####[facility] LABCLIA [id number] [facility] [address] [place] Centromere Ab IF Ql (S)on Centromere Ab Qn (S) <0.2 Normal <1.0 [facility] Comment on above: Order Comment: Speci jasiel Type: BLOOD SPECIMEN Ordering Facility: [facility] Address: [address] [place] [address] Result Comment: Anti -centromere antibody is used as in aid in diagnosis of systemic sclerosis. Clinical correlation is required. Test Methodology: Multiplex flow immunoassay. Performed By: #### 1 920-8, 82296-2, 1741-6 #### [facility] CLIA [id number] [address] [place] [address] [place] CENTROMERE AB QUAL Negative Normal Negative [facility] Comment on above: Order Comment: Luis A weathers Type: BLOOD SPECIMEN Ordering Facility: [facility] Address: [address] [facility] [place] [address] Performed By: #### 1 920-8, 64501-0, 1741-6 #### [facility] CLIA [id number] [address] [place] [address] [place] Chromatin Ab Qnon 01-21-2025 CHROMATIN AB QUAL Positive Abnormal Negative [facility] Comment on above: Order Comment: Luis A weathers Type: BLOOD SPECIMEN Ordering Facility: [facility] Address: [address] [place] [address] Performed By: #### 1 920-8, 20638-3, 1741-6 #### [facility] CLIA [id number] [address] [place] [address] [place] Chromatin Ab SerPl-aCncon Chromatin Ab Qn >8.0 High <1.0 [facility] Comment on above: Order Comment: Speci men Type: BLOOD SPECIMEN Ordering Facility: [facility] Address: [address] [place] [address] Result Comment: Test Methodology: Multiplex flow immunoassay. Performed By: #### 1 920-8, 73707-0, 1742-6 #### [facility] CLIA [id number] [address] [place] [address] [place] Comprehensive metabolic 2000 panelon 01-21-2025 Albumin [Mass/Vol] 3.6 g/dL Low 3.9-4.9 [facility] Comment on above: Order Comment: Speci men Type: BLOOD SPECIMENOrdering Facility: [facility] Address: [address] [place] [address] Performed By: #### 2 4323-8 ####[facility]ITALNCLIA [id number] [place] [address] [place] ALP [Catalytic activity/Vol] 91 U/L Normal 34-123 [facility] Comment on above: Order Comment: Speci men Type: BLOOD SPECIMENOrdering Facility: [facility] Address: [address] [place] [address] Performed By: #### 2 4323-8 ####[facility]TONLIA [id number] [place] [address] [place] ALT [Catalytic activity/Vol] 20 U/L Normal 7-38 [facility] Comment on above: Order Comment: Speci men Type: BLOOD SPECIMENOrdering Facility: [facility] Address: [address] [place] [address] Performed By: #### 2 4323-8 ####[facility] CENTERWNCLIA [id number] [place] [address] [place] Anion gap [Moles/Vol] 11 mmol/L Normal 8-15 [facility] Comment on above: Order Comment: Speci men Type: BLOOD SPECIMENOrdering Facility: [facility] Address: [address] [place] [address] Performed By: #### 2 4323-8 ####[facility] [id number] [place] [address] [place] AST [Catalytic activity/Vol] 24 U/L Normal 13-35 [facility] Comment on above: Order Comment: Speci men Type: BLOOD SPECIMENOrdering Facility: [facility] Address: [address] [place] [address] Performed By: #### 2 4323-8 ####[facility] BRENNONLEE CENTERNCMARSHAL [id number] [place] [address] [place] Bilirubin [Mass/Vol] 0.3 mg/dL Normal 0.2-1.3 [facility] Comment on above: Order Comment: Speci men Type: BLOOD SPECIMENOrdering Facility: [facility] Address: [address] [place] [address] Performed By: #### 2 4323-8 ####[facility]ITALNCLIA [id number] [place] [address] [place] Calcium [Mass/Vol] 8.4 mg/dL Low 8.5-10.2 [facility] Comment on above: Order Comment: Speci men Type: BLOOD SPECIMENOrdering Facility: [facility] Address: [address] [place] [address] Performed By: #### 2 4323-8 ####[facility]ITALNCLIA [id number] [place] [address] [place] Chloride [Moles/Vol] 106 mmol/L Normal 98-107 [facility] Comment on above: Order Comment: Speci men Type: BLOOD SPECIMENOrdering Facility: [facility] Address: [address] [place] [address] Performed By: #### 2 4323-8 ####[facility] MILLFERMINWNCLIA [id number] [place] [address] [place] CO2 [Moles/Vol] 21 mmol/L Low 22-30 [facility] Comment on above: Order Comment: Speci men Type: BLOOD SPECIMENOrdering Facility: [facility] Address: [address] [place] [address] Performed By: #### 2 4323-8 ####[facility] CENTERWNCLIA [id number] [place] [address] [place] Creatinine [Mass/Vol] 0.61 mg/dL Normal 0.58-0.96 [facility] Comment on above: Order Comment: Speci men Type: BLOOD SPECIMENOrdering Facility: [facility] Address: [address] [place] [address] Performed By: #### 2 4323-8 ####[facility]ITALNCLIA [id number] [place] [address] [place] eGFRcr SerPlBld CKD-EPI 2020 113 mL/min/1.73m??? Normal >=60 [facility] Comment on above: Order Comment: Speci men Type: BLOOD SPECIMENOrdering Facility: [facility] Address: [address] [place] [address] Result Comment: Yvonne mated Glomerular Filtration Rate (eGFR) is calculated using the 2020 CKD-EPI creatinine equation. This equation utilizes serum creatinine, sex, and age as parameters. The creatinine assay has traceable calibration to isotope dilution-mass spectrometry. Refer to KDIGO guidelines for clinical interpretation. In patients with unstable renal function, e.g. those with acute kidney injury, the eGFR may not accurately reflect actual GFR. Performed By: #### 2 4323-8 ####[facility] CENTERWNCLIA [id number] [place] [address] [place] Glucose [Mass/Vol] 97 mg/dL Normal 74-99 [facility] Comment on above: Order Comment: Speci men Type: BLOOD SPECIMENOrdering Facility: [facility] Address: [address] [place], [place] [address] Result Comment: The [place] Diabetes Association (ADA) provides guidance for cutoff values for fasting glucose and random glucose. The ADA defines fasting as no caloric intake for at least 8 hours. Fasting plasma glucose results between 100 to 125 mg/dL indicate increased risk for diabetes (prediabetes). Fasting plasma glucose results greater than or equal to 126 mg/dL meet the criteria for diagnosis of diabetes. In the absence of unequivocal hyperglycemia, results should be confirmed by repeat testing. In a patient with classic symptoms of hyperglycemia or hyperglycemic crisis, random plasma glucose results greater than or equal to 200 mg/dL meet the criteria for diagnosis of diabetes. Reference: Standards of Medical Care in Diabetes 2016, [place] Diabetes Association. Diabetes Care. 2016.39(Suppl 1). Performed By: #### 2 4323-8 ####[facility] [id number] [place] [address] [place] Potassium [Moles/Vol] 3.8 mmol/L Normal 3.7-5.1 [facility] Comment on above: Order Comment: Speci men Type: BLOOD SPECIMENOrdering Facility: [facility] Address: [address] [place], [place] [address] Performed By: #### 2 4323-8 ####[facility] [id number] [place] [address] [place] Sodium [Moles/Vol] 138 mmol/L Normal 136-144 [facility] Comment on above: Order Comment: Speci men Type: BLOOD SPECIMENOrdering Facility: [facility] Address: [address] [place] [address] Performed By: #### 2 4323-8 ####[facility] [id number] [place] [address] [place] Urea nitrogen [Mass/Vol] 8 mg/dL Normal 7-21 [facility] Comment on above: Order Comment: Speci men Type: BLOOD SPECIMENOrdering Facility: [facility] Address: [address] [place] [address] Performed By: #### 2 4323-8 ####[facility] [id number] [place] [address] [place] DNA double strand Ab IA Qn ( S)on 01-21-2025 DNA ANTIBODY 927 IU/mL High <=200 [facility] Comment on above: Order Comment: Speci men Type: BLOOD SPECIMENOrdering Facility: [facility] Address: [address] [place] [address] Result Comment: Nega tive: <200 IU/mL Equivocal: 201-300 IU/mL Moderate Positive: 301-800 IU/mL Strong Positive: >801 IU/mL Performed By: #### 3 2677-7 ####[facility] LABCLIA [id number] [place] [address] [place] DNA ANTIBODY QUALITATIVE INTERPRETATION Positive Abnormal Negative [facility] Comment on above: Order Comment: Speci men Type: BLOOD SPECIMENOrdering Facility: [facility] Address: [address] [place] [address] Performed By: #### 3 2677-7 ####[facility] LABCLIA [id number] [place] [address] [place] CHIDI Jo1 Ab Ser-aCncon 2024 Sabi-1 extractable nuclear Ab Qn (S) <0.2 Normal <1.0 [facility] Comment on above: Order Comment: Speci men Type: BLOOD SPECIMEN Ordering Facility: [facility] Address: [address] [place] [address] Performed By: #### 1 920-8, 20052-8, 1742-6 #### [facility] CLIA [id number] [address] [place] [address] [place] CHIDI RN ACUTE CARE Ab Ser-aCncon 2024 Ribonucleoprotein extractable nuclear Ab Qn (S) <0.2 Normal <1.0 [facility] Comment on above: Order Comment: Speci men Type: BLOOD SPECIMEN Ordering Facility: [facility] Address: [address] [place] [address] Performed By: #### 1 920-8, 35243-0, 6 #### [facility] CLIA [id number] [address] [place] [address] [place] Ribonucleoprotein extractable nuclear Ab Qn (S) >8.0 High <1.0 [facility] Comment on above: Order Comment: Speci men Type: BLOOD SPECIMEN Ordering Facility: [facility] Address: [address] [place] [address] Performed By: #### 1 920-8, 55928-2, 1741-09 #### [facility] CLIA [id number] [address] [place] [address] [place] CHIDI SM IgG Ser-aCncon 2024 Hill extractable nuclear IgG Qn (S) 1.3 AI High <1.0 [facility] Comment on above: Order Comment: Speci men Type: BLOOD SPECIMEN Ordering Facility: [facility] Address: [address] [place] [address] Performed By: #### 1 920-8, 69237-9, 1741-09 #### [facility] CLIA [id number] [address] [place] [address] [place] CHIDI SS-A Ab Ser-aCncon 01-21 Sjogrens syndrome-A extractable nuclear Ab Qn (S) <0.2 Normal <1.0 [facility] Comment on above: Order Comment: Dennysi men Type: BLOOD SPECIMEN Ordering Facility: [facility] Address: [address] [place] [address] Result Comment: Test Methodology: Multiplex flow immunoassay. Performed By: #### 1 920-8, 15605-3, 6 #### [facility] MILLWN CLIA [id number] [address] [place] [address] [place] CHIDI SS-B Ab Ser-aCncon 01-21 Sjogrens syndrome-B extractable nuclear Ab Qn (S) 0.2 AI Normal <1.0 [facility] Comment on above: Order Comment: Speci jasiel Type: BLOOD SPECIMEN Ordering Facility: [facility] Address: [address] [place] [address] Result Comment: Anti -SSB (anti-La) antibody is used as an aid in diagnosis of a variety of systemic autoimmune diseases, especially for Sjogren's syndrome and systemic lupus erythematosus. Clinical correlation is required. Test Methodology: Multiplex flow immunoassay. Performed By: #### 1 920-8, 76520-2, 1742-6 #### [facility] CLIA [id number] [address] [place] [address] [place] ESR Westergren method (Bld) [Velocity]on 01-21-2025 ESR (Bld) [Velocity] 48 mm/h High 0-20 [facility] Comment on above: Order Comment: Speci jasiel Type: BLOOD SPECIMEN Ordering Facility: [facility] Address: [address] [place] [address] Performed By: #### 1 920-8, 24720-9, 1742-6 #### [facility] CLIA [id number] [address] [place] [address] [place] IMMUNOFIXATION SCREEN, SERUM on 01-21-2025 MPA RESULT No M protein is identified. Normal No M protein is identified. [facility] Comment on above: Order Comment: Luis A weathers Type: BLOOD SPECIMENOrdering Facility: [facility] Address: [address] [place] [address] Performed By: #### I [facility] ####[facility] LABCLIA [id number] [place] [address] [place] STAFF REVIEW (MPA) Reviewed by Clinton Bar M.D. Normal [facility] Comment on above: Order Comment: Speci jasiel Type: BLOOD SPECIMENOrdering Facility: [facility] Address: [address] [place] [address] Performed By: #### I [facility] ####[facility] LABCLIA [id number] [facility]USCookie SHAWNEELISA [id number] [place] [address] [place] Sabi-1 extractable nuclear Ab Qn (S)on 01-21-2025 SABI 1 ANTIBODY QUAL Negative Normal Negative [facility] Comment on above: Order Comment: Luis A weathers Type: BLOOD SPECIMEN Ordering Facility: [facility] Address: [address] [place] [address] Result Comment: Anti -SABI-1 antibody is used as an aid in diagnosis of polymyositis and dermatomyositis especially with pulmonary involvement. A negative result cannot rule out polymyositis or dermatomyositis. Clinical correlation is required. Test Methodology: Multiplex flow immunoassay. Performed By: #### 1 920-8, 92973-4, 1741-09 #### [facility] CLIA [id number] [address] [place] [address] [place] KAPPA/ROGERS,FREE,SERon 2024 Immunoglobulin light chains.kappa.free (S) [Mass/Vol] 100.4 mg/L High 3.3-19.4 [facility] Comment on above: Order Comment: Luis A weathers Type: BLOOD SPECIMEN Ordering Facility: [facility] Address: [address] [place] [address] Result Comment: Rare ly, increased serum free light chains levels may not be detected or accurately quantified due to prozone phenomenon or in high viscosity samples using this immunoturbidimetric assay. Correlation with other laboratory results and clinical findings is recommended. The [place] Free Light Chain was performed using the Binding Site Optilite immunoturbidimetric method. Result obtained with different assay methods or kits cannot be used interchangeably. Performed By: #### 1 920-8, 36904-5, 1741-6 #### [facility] CLIA [id number] [address] [place] [address] [place] Immunoglobulin light chains.kappa/Immunog lobulin light chains.lambda (S) [Mass ratio] 1.43 Normal 0.26-1.65 [facility] Comment on above: Order Comment: Speci men Type: BLOOD SPECIMEN Ordering Facility: [facility] Address: [address] [place] [address] Performed By: #### 1 920-8, 73214-6, 174-6 #### [facility] CLIA [id number] [address] [place] [address] [place] Immunoglobulin light chains.lambda.free [Mass/Vol] 70.0 mg/L High 5.7-26.3 [facility] Comment on above: Order Comment: Speci men Type: BLOOD SPECIMEN Ordering Facility: [facility] Address: [address] [place] [address] Result Comment: Rare ly, increased serum free light chains levels may not be detected or accurately quantified due to prozone phenomenon or in high viscosity samples using this immunoturbidimetric assay. Correlation with other laboratory results and clinical findings is recommended. The [place] Free Light Chain was performed using the Binding Site Optilite immunoturbidimetric method. Result obtained with different assay methods or kits cannot be used interchangeably. Performed By: #### 1 920-8, 15263-1, 1741-6 #### [facility] CLIA [id number] [address] [place] [address] [place] MONOCLONAL PROT UR W/INTERPo n 01-21-2025 STAFF REVIEW ([place]) Reviewed by Clinton Bar M.D. Normal [facility] Comment on above: Order Comment: Speci men Type: URINE SPECIMENOrdering Facility: [facility] Address: [address] [place] [address] Performed By: #### U PA ####[facility] LABCLIA [id number] [place] [address] [place] UMPA RESULT No M protein is identified. Normal No M protein is identified. [facility] Comment on above: Order Comment: Speci men Type: URINE SPECIMENOrdering Facility: [facility] Address: [address] [place] [address] Performed By: #### U RMPA ####[facility] LABCLIA [id number] [place] [address] [place] PM-SCL ANTIBODYon 01-21-2025 PM-SCL ANTIBODY Negative Normal Negative [facility] Comment on above: Order Comment: Speci men Type: BLOOD SPECIMENOrdering Facility: [facility] Address: [address] [place] [address] Result Comment: INTE RPRETIVE INFORMATION: PM/Scl-100 Antibody, IgG by Immunoblot The presence of PM/Scl-100 IgG antibody along with a positive GABRIEL IFA nucleolar pattern is associated with connective tissue diseases such as polymyositis (PM), dermatomyositis (DM), systemic sclerosis (SSc), and polymyositis/systemic sclerosis overlap syndrome. The clinical relevance of PM/Scl-100 IgG antibody with a negative GABRIEL IFA nucleolar pattern is unknown. PM/Scl-100 is the main target epitope of the PM/Scl complex, although antibodies to other targets not detected by this assay may occur. This test was developed and its performance characteristics determined by [facility]. It has not been cleared or approved by the US Food and Drug Administration. This test was performed in a CLIA certified laboratory and is intended for clinical purposes. Performed By: [facility] [address] [place] [address] Rn Case Manager: Moris Cooley MD, PhD CLIA Number: [id number] Performed By: #### U 3RNP, RNAIII, PM1AB ####[facility] [id number] [place] [address] PROTEIN ELECTROPHORESIS SERU M (P)on 01-21-2025 Albumin [Mass/Vol] 3.54 g/dL Normal 3.43-5.41 [facility] Comment on above: Order Comment: Speci men Type: BLOOD SPECIMEN Ordering Facility: [facility] Address: [address] [place] [address] Performed By: #### 1 920-8, 35678-0, 17426 #### [facility] CLIA [id number] [address] [place] [address] [place] Alpha 1 globulin Elph [Mass/Vol] 0.32 g/dL Normal 0.18-0.43 [facility] Comment on above: Order Comment: Speci men Type: BLOOD SPECIMEN Ordering Facility: [facility] Address: [address] [place] [id number] Performed By: #### 1 920-8, 19691-5, 1746 #### [facility] CLIA [id number] [address] [place] [address] [place] Alpha 2 globulin Elph [Mass/Vol] 0.69 g/dL Normal 0.42-0.98 [facility] Comment on above: Order Comment: Speci men Type: BLOOD SPECIMEN Ordering Facility: [facility] Address: [facility] [address] [place] [id number] Performed By: #### 1 920-8, 52007-8, 1746 #### [facility] CLIA [id number] [address] [place] [address] [place] Beta globulin Elph [Mass/Vol] 1.10 g/dL Normal 0.61-1.17 [facility] Comment on above: Order Comment: Speci men Type: BLOOD SPECIMEN Ordering Facility: [facility] Address: [facility] [place] [address] Performed By: #### 1 920-8, 74251-1, 1746 #### [facility] CLIA [id number] [address] [place], [place] [id number] [place] Gamma globulin Elph [Mass/Vol] 1.85 g/dL High 0.53-1.51 [facility] Comment on above: Order Comment: Speci men Type: BLOOD SPECIMEN Ordering Facility: [facility] Address: [facility] [address] [place] [id number] Performed By: #### 1 920-8, 22328-2, 174-6 #### [facility] CLIA [id number] [address] [place] [address] [place] M-PROTEIN LOCATION Normal [facility] Comment on above: Order Comment: Speci men Type: BLOOD SPECIMEN Ordering Facility: [facility] Address: [address] , [place] [address] Result Comment: Not Applicable. Performed By: #### 1 920-8, 74096-8, 174-6 #### [facility] CLIA [id number] [address] [place] [address] [place] Protein Fractions [Interp] No definitive M protein is identified on protein electrophoresis. Normal No definitive M protein is identified on protein electrophores is. [facility] Comment on above: Order Comment: Speci men Type: BLOOD SPECIMEN Ordering Facility: [facility] Address: [address] , [place] [address] Performed By: #### 1 920-8, 44056-9, 1741-6 #### [facility] CLIA [id number] [address] [place] [address] [place] Protein.monoclonal Elph [Mass/Vol] 0.00 g/dL Normal <=0.00 [facility] Comment on above: Order Comment: Speci men Type: BLOOD SPECIMEN Ordering Facility: [facility] Address: [address] , [place] [address] Performed By: #### 1 920-8, 74485-5, 6 #### [facility] CLIA [id number] [address] [place] [address] [place] SPE STAFF REVIEW Reviewed by Clinton Bar M.D. Normal [facility] Comment on above: Order Comment: Speci men Type: BLOOD SPECIMEN Ordering Facility: [facility] Address: [address] , [place] [address] Performed By: #### 1 920-8, 11899-5, 174-6 #### [facility] CLIA [id number] [address] [place] [address] [place] Prot SerPl-mCncon 01-21-2025 Protein [Mass/Vol] 7.5 g/dL Normal 6.3-8.0 [facility] Comment on above: Order Comment: Speci men Type: BLOOD SPECIMENOrdering Facility: [facility] Address: [address] [place] [address] Performed By: #### 1 988-5, 2885-2, 20322-5, 4498-2, 4485-9 ####[facility] [id number] [place] [address] [place] Performed By: #### 2 4323-8 ####[facility] [id number] [place] [address] [place] Prot/Creat Uron 01-21-2025 Protein (U) [Mass/Vol] 13 mg/dL Normal 0-20 [facility] Comment on above: Order Comment: Speci men Type: URINE SPECIMENOrdering Facility: [facility] Address: [address] [place] [address] Performed By: #### 2 888-6, 2890-2 ####[facility] [id number] [address] [place] Protein/Creatinine (U) [Mass ratio] 0.21 mg/mg High <0.15 [facility] Comment on above: Order Comment: Speci men Type: URINE SPECIMENOrdering Facility: [facility] Address: [address] [place] [address] Result Comment: Adul t Proteinuria Categories: <0.15 mg/mg is considered normal to mildly increased 0.15 - 0.50 mg/mg is considered moderately increased >0.50 mg/mg is considered severely increased KDIGO. (2013). KDIGO 2012 Clinical Practice Guideline for the Evaluation and Management of Chronic Kidney Disease. Official Journal of the International Society of Nephrology, 3(1), 1-150. Performed By: #### 2 888-6, 2890-2 ####[facility] LABIA [id number] [place] [id number] [place] Protein/Creatinine (U) [Mass ratio]on 01-21-2025 Creatinine (U) [Mass/Vol] 61.6 mg/dL Normal 20.0-300.0 [facility] Comment on above: Order Comment: Speci men Type: URINE SPECIMENOrdering Facility: [facility] Address: [address] [place] [address] Performed By: #### 2 888-6, 289-2 ####[facility] [id number] [place] [id number] [place] RNA POLYMERASE III ABon 10-0 RNA POLYMERASE III AB 7 Units Normal 0-19 [facility] Comment on above: Order Comment: Speci men Type: BLOOD SPECIMENOrdering Facility: [facility] Address: [address] [place] [address] Result Comment: INTE RPRETIVE INFORMATION: RNA Polymerase III Antibody, IgG 19 Units or less ......Negative 20 - 39 Units .........Weak Positive 40 - 80 Units .........Moderate Positive 81 Units or greater ...Strong Positive The presence of RNA polymerase III IgG antibody, when considered in conjunction with other laboratory and clinical findings, is an aid in the diagnosis of systemic sclerosis (SSc) with increased incidence of skin involvement and renal crisis with the diffuse cutaneous form of SSc. RNA polymerase III IgG antibody occur in about 11-23 percent of SSc patients, and typically in the absence of anti-centromere and anti-Scl-70 antibodies. A negative result indicates no detectable IgG antibodies to the dominant antigen of RNA polymerase III and does not rule out the possibility of SSc. False-positive results may also occur due to non-specific binding of immune complexes. Strong clinical correlation is recommended. If clinical suspicion remains, consider additional testing for other antibodies associated with SSc, including centromere, Scl-70, U3-RN ACUTE CARE, PM/Scl, or Th/To. Performed By: [place] [address] Rn Case Manager: Moris Cooley MD, PhD CLIA Number: [id number] Performed By: #### U NEFTALI, MEAGANII, PM1AB ####[facility]OR[facility]IESCLIA [id number] [place] [address] Rheumatoid fact SerPl-aCncon 01-21-2025 Rheumatoid factor Qn [IU]/mL Normal <16 [facility] Comment on above: Order Comment: Speci men Type: BLOOD SPECIMENOrdering Facility: [facility] Address: [address] [place] [address] Performed By: #### 1 988-5, 2885-2, 90159-8, 4498-2, 4485-9 ####[facility] [id number] [place] [address] [place] Ribonucleoprotein extractabl e nuclear Ab Qn (S)on 01-21-2025 ANTI-RN ACUTE CARE QUAL Positive Abnormal Negative [facility] Comment on above: Order Comment: Luis A weathers Type: BLOOD SPECIMEN Ordering Facility: [facility] Address: [address], [place] [address] Performed By: #### 1 920-8, 35440-6, 174-6 #### [facility] CLIA [id number] [address] [place] [address] [place] RIBOSOMAL RN ACUTE CARE QUAL Negative Normal Negative [facility] Comment on above: Order Comment: Luis A weathers Type: BLOOD SPECIMEN Ordering Facility: [facility] Address: [address], [place] [address] Result Comment: Anti -Ribosomal RNA (Ribosomal P) antibody is used as an aid in diagnosis of systemic autoimmune diseases especially systemic lupus erythematosus and mixed connective tissue disease. Cross-reactivity with Anti-hill antibody is not uncommon. Clinical correlation is required. Test Methodology: Multiplex flow immunoassay. Performed By: #### 1 920-8, 63913-6, 174-6 #### [facility] CLIA [id number] [address] [place] [address] [place] SCL-70 extractable nuclear I gG IA Qn (S)on 01-21-2025 SCLERODERMA AB QUAL Negative Normal Negative [facility] Comment on above: Order Comment: Speci men Type: BLOOD SPECIMEN Ordering Facility: [facility] Address: [address] , [place] [address] Performed By: #### 1 920-8, 46883-2, 174-6 #### [facility] CLIA [id number] [address] [place] [address] [place] SCLERODERMA IGG AB 0.4 AI Normal <1.0 [facility] Comment on above: Order Comment: Speci men Type: BLOOD SPECIMEN Ordering Facility: [facility] Address: [address] [place] [address] Result Comment: Scl- 70/Scleroderma antibody test is used as an aid in diagnosis of systemic sclerosis especially the diffuse cutaneous form. A negative result cannot rule out systemic sclerosis. The final interpretation should consider clinical picture and other test results such as anti-centromere antibody. Test Methodology: Multiplex flow immunoassay. Performed By: #### 1 920-8, 68469-8, 174-6 #### [facility] CLIA [id number] [address] [place] [address] [place] Sjogrens syndrome-A extracta ble nuclear Ab Qn (S)on 01-21-2025 SSA ANTIBODY QUAL Negative Normal Negative [facility] Comment on above: Order Comment: Speci men Type: BLOOD SPECIMEN Ordering Facility: [facility] Address: [address] , [place] [address] Performed By: #### 1 920-8, 48274-4, 174-6 #### [facility] CLIA [id number] [address] [place] [address] [place] Sjogrens syndrome-B extracta ble nuclear Ab Qn (S)on 01-21-2025 SSB ANTIBODY QUAL Negative Normal Negative [facility] Comment on above: Order Comment: Speci men Type: BLOOD SPECIMEN Ordering Facility: [facility] Address: [address] [facility] [place] [id number] Performed By: #### 1 920-8, 02153-5, 174-6 #### [facility] CLIA [id number] [address] [place] [address] [place] Hill extractable nuclear Ig G Qn (S)on 01-21-2025 SM ANTIBODY QUAL Positive Abnormal Negative [facility] Comment on above: Order Comment: Luis A weathers Type: BLOOD SPECIMEN Ordering Facility: [facility] Address: [address] [facility] [place] [id number] Result Comment: Anti -Sm (Hill) antibody is used as an aid in diagnosis of systemic lupus erythematosus and its presence is associated with renal disease. A negative result cannot rule out systemic lupus erythematosus. Clinical correlation is required. Test Methodology: Multiplex flow immunoassay. Performed By: #### 1 920-8, 67973-6, 6 #### [facility] CLIA [id number] [address] [place] [address] [place] TH/TO ANTIBODYon 01-21-2025 Th-To Ab Line blot Ql (S) Negative Normal Negative [facility] Comment on above: Order Comment: Luis A weathers Type: BLOOD SPECIMEN Ordering Facility: [facility] Address: [facility] [address] [facility] [place] [address] Performed By: #### 1 920-8, 77773-9, 174-6 #### [facility] CLIA [id number] [address] [place], [place] [id number] [place] U3RNP FIBRILLARIN ABon 01-21 U3RNP FIBRILLARIN AB Negative Normal Negative [facility] Comment on above: Order Comment: Luis A weathers Type: BLOOD SPECIMENOrdering Facility: [facility] Address: [address] [place] [address] Result Comment: Inte rpretive Information: Fibrillarin (U3 RN ACUTE CARE) Antibody, IgG The presence of fibrillarin (U3-RN ACUTE CARE) IgG antibodies in association with an GABRIEL IFA nucleolar pattern is suggestive of systemic sclerosis (SSc). In SSc, these antibodies are associated with distinct clinical features, such as younger age at disease onset, frequent internal organ involvement (pulmonary hypertension, myositis and renal disease). Fibrillarin antibodies are detected more frequently in patients with SSc compared to other ethnic groups. Strong correlation with GABRIEL IFA results is recommended. In a multi-ethnic cohort of SSc patients (n=98), U3-RN ACUTE CARE antibodies detected by immunoblot had an agreement of 98.9 percent with the gold standard immunoprecipitation (IP) assay. Approximately 71 percent (5/7) of the borderline U3-RN ACUTE CARE results with GABRIEL nucleolar pattern in this cohort were IP negative. This test was developed and its performance characteristics determined by [facility]. It has not been cleared or approved by the [place] Food and Drug Administration. This test was performed in a CLIA certified laboratory and is intended for clinical purposes. Performed By: [facility] [address] [place], [place] [id number] Rn Case Manager: Moris Cooley MD, PhD [place] Number: [id number] Performed By: #### U 3RNP, RNAIII, PM1AB ####[facility] [id number] [place] [address] URINE PROTEIN ELECTROPHORESI S RANDOM (P)on 01-21-2025 Albumin Elph (U) [Mass fraction] 8.62 % Normal [facility] Comment on above: Order Comment: Speci men Type: URINE SPECIMENOrdering Facility: [facility] Address: [address] [place] [address] Performed By: #### L [id number] ####[facility] LABIA [id number] [place] [address] [place] Alpha 1 globulin Elph (U) [Mass fraction] 2.06 % Normal [facility] Comment on above: Order Comment: Speci men Type: URINE SPECIMENOrdering Facility: [facility] Address: [address] [place] [address] Performed By: #### L [id number] ####[facility] [id number] [place] [address] [place] Alpha 2 globulin Elph (U) [Mass fraction] 11.47 % Normal [facility] Comment on above: Order Comment: Speci men Type: URINE SPECIMENOrdering Facility: [facility] Address: [address] [place] [address] Performed By: #### L [id number] ####[facility] [id number] [address] [place] Beta globulin Elph (U) [Mass fraction] 57.96 % Normal [facility] Comment on above: Order Comment: Speci men Type: URINE SPECIMENOrdering Facility: [facility] Address: [address] [place] [address] Performed By: #### L [id number] ####[facility] [id number] [address] [place] Gamma globulin Elph (U) [Mass fraction] 19.89 % Normal [facility] Comment on above: Order Comment: Speci men Type: URINE SPECIMENOrdering Facility: [facility] Address: [address] [place] [address] Performed By: #### L [id number] ####[facility] [id number] [address] [place] INTERPRETATION COMMENT FOR PROTEIN ELECTROPHORESIS The atypical region is relatively poorly defined and may represent an unusual presentation of polyclonal immunoglobulins, but cannot rule out the presence of a low level M protein. If clinically indicated, monoclonal protein analysis and serum free light chain analysis are suggested to evaluate further for monoclonal gammopathy. Normal [facility] Comment on above: Order Comment: Speci men Type: URINE SPECIMENOrdering Facility: [facility] Address: [address] [place] [address] Performed By: #### L [id number] ####[facility] [id number] [place] [id number] [place] Protein Fractions Elph Bhupinder (U) [Interp] An atypical region of restricted mobility is identified on protein electrophoresis. Abnormal No definitive M protein is identified on protein electrophores is. [facility] Comment on above: Order Comment: Speci men Type: URINE SPECIMENOrdering Facility: [facility] Address: [address] [place] [address] Performed By: #### L [id number] ####[facility] [id number] [place] [address] [place] STAFF REVIEW (URINE ELECTRO) Reviewed by Clinton Bar M.D. Normal [facility] Comment on above: Order Comment: Speci men Type: URINE SPECIMENOrdering Facility: [facility] Address: [address] [place] [address] Performed By: #### L [id number] ####[facility] [id number] [place] [address] [place] Urinalysis complete panel (U )on 01-21-2025 Bacteria LM.HPF (Urine sed) [#/Area] Negative Normal Negative [facility] Comment on above: Order Comment: Speci men Type: BLOOD SPECIMEN Ordering Facility: [facility] Address: [address] [place] [address] Performed By: #### 1 920-8, 62505-5, 174-6 #### [facility] CLIA [id number] [address] [place] [address] [place] Bilirubin Ql (U) Negative Normal Negative [facility] Comment on above: Order Comment: Speci men Type: BLOOD SPECIMEN Ordering Facility: [facility] Address: [address] [place] [address] Performed By: #### 1 920-8, 58044-4, 174-6 #### [facility] CLIA [id number] [address] [place] [address] [place] Clarity (Unsp spec) Clear Normal Clear [facility] Comment on above: Order Comment: Speci men Type: BLOOD SPECIMEN Ordering Facility: [facility] Address: [address] [place] [address] Performed By: #### 1 920-8, 52488-6, 1741-6 #### [facility] CLIA [id number] [address] [place] [address] [place] Color (U) Yellow Normal Yellow [facility] Comment on above: Order Comment: Speci men Type: BLOOD SPECIMEN Ordering Facility: [facility] Address: [address] , [place] [address] Performed By: #### 1 920-8, 45177-3, 1741-6 #### [facility] CLIA [id number] [address] [place] [address] [place] Epithelial cells LM.HPF (Urine sed) [#/Area] Moderate Normal [facility] Comment on above: Order Comment: Speci men Type: BLOOD SPECIMEN Ordering Facility: [facility] Address: [address] [place] [address] Performed By: #### 1 920-8, 65788-2, 1741-6 #### [facility] CLIA [id number] [address] [place] [address] [place] Glucose Test strip (U) [Mass/Vol] Negative Normal Negative [facility] Comment on above: Order Comment: Speci men Type: BLOOD SPECIMEN Ordering Facility: [facility] Address: [address] [place] [address] Performed By: #### 1 920-8, 22260-8, 1741-6 #### [facility] CLIA [id number] [address] [place] [address] [place] Hemoglobin Ql (U) Negative Normal Negative [facility] Comment on above: Order Comment: Speci men Type: BLOOD SPECIMEN Ordering Facility: [facility] Address: [address] [place] [address] Performed By: #### 1 920-8, 16651-8, 1741-6 #### [facility] CLIA [id number] [address] [place] [address] [place] Hyaline casts (Urine sed) [#/Area] 0 /[LPF] Normal 0 /LPF [facility] Comment on above: Order Comment: Speci men Type: BLOOD SPECIMEN Ordering Facility: [facility] Address: [address] [place] [address] Performed By: #### 1 920-8, 75917-8, 6 #### [facility] CLIA [id number] [address] [place] [address] [place] Ketones Ql (U) Negative Normal Negative [facility] Comment on above: Order Comment: Speci men Type: BLOOD SPECIMEN Ordering Facility: [facility] Address: [address] [place] [address] Performed By: #### 1 920-8, 81952-6, 1741-09 #### [facility] CLIA [id number] [address] [place] [address] [place] Leukocyte esterase Test strip Ql (U) Trace Abnormal Negative [facility] Comment on above: Order Comment: Speci men Type: BLOOD SPECIMEN Ordering Facility: [facility] Address: [address] [place] [address] Performed By: #### 1 920-8, 39588-9, 6 #### [facility] CLIA [id number] [address] [place] [address] [place] Nitrite Ql (U) Negative Normal Negative [facility] Comment on above: Order Comment: Speci men Type: BLOOD SPECIMEN Ordering Facility: [facility] Address: [address] [place] [address] Performed By: #### 1 920-8, 23606-4, 1741-6 #### [facility] CLIA [id number] [address] [place] [address] [place] pH (U) 7.0 [pH] Normal 5.0-8.0 [facility] Comment on above: Order Comment: Luis A weathers Type: BLOOD SPECIMEN Ordering Facility: [facility] Address: [place] [address] Performed By: #### 1 920-8, 93396-3, 6 #### [facility] CLIA [id number] [address] [place] [address] [place] Protein (U) [Mass/Vol] Negative Normal Negative [facility] Comment on above: Order Comment: Speci men Type: BLOOD SPECIMEN Ordering Facility: [facility] Address: [facility] [place] [address] [place] [address] Performed By: #### 1 920-8, 87873-1, 6 #### [facility] CLIA [id number] [address] [place] [address] [place] RBC LM.HPF (Urine sed) [#/Area] 0-2 /HPF Normal 0-2 /HPF [facility] Comment on above: Order Comment: Dennysi jasiel Type: BLOOD SPECIMEN Ordering Facility: [facility] [place] [address] Performed By: #### 1 920-8, 24809-3, 6 #### [facility] CLIA [id number] [address] [place] [address] [place] Specific gravity (U) [Rel density] 1.014 Normal 1.005-1.030 [facility] Comment on above: Order Comment: Dennysi jasiel Type: BLOOD SPECIMEN Ordering Facility: [facility] [place] [address] Performed By: #### 1 920-8, 26148-1, 6 #### [facility] CLIA [id number] [address] [place] [address] [place] Urobilinogen Ql (U) 0.2 EU/dL Normal 0.2-1.0 EU/dL [facility] Comment on above: Order Comment: Speci men Type: BLOOD SPECIMEN Ordering Facility: [facility] Address: [address] [place] [id number] Performed By: #### 1 920-8, 72764-2, 1742-6 #### [facility] CLIA [id number] [address] [place] [address] [place] WBC LM.HPF (Urine sed) [#/Area] 0-5 /HPF Normal 0-5 /HPF [facility] Comment on above: Order Comment: Speci men Type: BLOOD SPECIMEN Ordering Facility: [facility] Address: [address] [place] [id number] Performed By: #### 1 920-8, 76030-8, 1742-6 #### [facility] CLIA [id number] [address] [place] [address] [place] CNOVon 01-16-2025 CNOV Office Visit (RHARMN ) -------- TAMY VAZQUEZ ([id number]) 1980 F Date Time Provider Department 01/16/25 2:30 PM ESMER FRYE During your visit today, we recorded the following information about you: Temperature Pulse Blood pressure Weight 98.1 degrees 80/minute 102/63 52.6 kg Height 1.524 m Esmer Frye MD 01/17/2025 10:53 AM Signed Rheumatology CONSULTATION Date of Service: 01/16/2025 Patient: Tamy Vazquez Medical Record: [id number] Primary Care Physician: Tayo Rodriguez MD Last Rheumatology visit: None at [facility] Referring Provider: No referring provider defined for this encounter. Chief Complaint: No chief complaint on file. Tamy Vazquez is here today specifically for consultation of my opinion in regards to the chief complaint listed above. Correspondence will be shared today via the [employer] electronic health record or through regular mail, where applicable. HISTORY OF PRESENT ILLNESS The patient is a 44-year-old female with Vitamin D deficiency, GERD, endometriosis, protein S deficiency, asthma, primary hyperparathyroidism, allergies, nephrolithiasis, fibroids who presents to rheumatology clinic to establish care with new provider for SLE/overlap syndrome with manifestations of high titer positive GABRIEL, dsDNA, Hill, high titer RN ACUTE CARE, high titer chromatin, intermittent leukopenia thrombocytopenia, solitary episode of low C4, multiple equivocal cardiolipin antibodies, history of DVT, oral ulcers, Raynaud's with digital pitting, sclerodactyly, ILD with UIP pattern, inflammatory arthralgias, patulous esophagus, sicca, bloating. She is accompanied by her who assists with the history. Tamy was initially diagnosed with lupus at age 19 after presenting with unexplained fevers and elevated GABRIEL titers. She reports no initial symptoms at the time of diagnosis. Over the years, she has developed multiple comorbidities Most notably Raynaud's with digital ulcerations, sclerodactyly, and UIP ILD. She has been on hydroxychloroquine 200 mg daily since approximately 2004, with no reported side effects and is up to date with her ophthalmologic exams. She tried CellCept but felt that it caused abrupt onset tinnitus which significantly worsened her health so she discontinued it. She then switched to azathioprine but was recommended to switch to Myfortic by pulmonology due to her ILD. She is currently on Myfortic 180 mg, taking one tablet in the morning and three at night, for the past 6-8 months. She notes an increase in myalgias since increasing the dose from three to four tablets daily. She was previously on azathioprine but was switched back to Myfortic by her lead ramp service man, Dr. Loya, who titrated the dose gradually. She reports ongoing dyspnea, particularly with increased physical activity, but notes improvement in orthopnea, now able to sleep flat without additional pillows. She is followed by pulmonology with regular pulmonary function tests every six months. She uses an inhaler as needed, approximately every other day, and reports improvement in symptoms with its use. She expresses concern about the risk of oral thrush from inhaler use. She experiences Raynaud's phenomenon, with color changes in her fingers and toes since her 20s, but has not been on systemic treatment due to dizziness with topical medications. She has a history of digital ulcers on the second and third digits of the right hand, occurring years ago after her children were born. She is currently not on medications for the Raynaud's. She thinks she was on something in the past which caused hypotension but she cannot remember names. 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 She denies rashes but has been diagnosed with psoriasis on her right foot by dermatology, treated with a topical cream as needed. She experiences esophageal dysmotility and is on Nexium daily for GERD, with symptoms well-controlled unless she overeats. She reports regular bowel movements and denies constipation, diarrhea, or hematochezia. She has a history of nephrolithiasis and primary hyperparathyroidism, status post parathyroidectomy in 2015. She is on Reclast and vitamin D for osteoporosis per endo, with a recent DEXA scan showing a T-score of -3.0 at the left femoral neck. She denies fractures and is followed by endocrinology. She has a history of a right internal jugular vein thrombosis , for which she has been on Coumadin since. She denies new thrombotic events. She reports intermittent arthralgias and myalgias, particularly in the hands, feet, and knees, with stiffness noted in the mornings and during cold or rainy weather. She denies erythema, calor, or swelling of the joints. She reports post-exertional malaise, with increased myalgias after physical (more content not included)... Normal [facility] ALT SerPl-cCncon 01-01-2025 ALT [Catalytic activity/Vol] 13 U/L Normal 7-38 [facility] Comment on above: Order Comment: Speci men Type: BLOOD SPECIMENOrdering Facility: [facility] Address: [address] [place] [address] Performed By: #### 1 742-6, 1920-8, 92631-8 ####[facility]IAMSBURGNaeem [id number] [place] [address] [place] AST SerPl-cCncon 01-01-2025 AST [Catalytic activity/Vol] 22 U/L Normal 13-35 [facility] Comment on above: Order Comment: Luis A weathers Type: BLOOD SPECIMENOrdering Facility: [facility] Address: [facility] [place] [address] Performed By: #### 1 742-6, 1920-8, 91481-5 ####[facility] [id number] [place] [address] [place] C3 SerPl-mCncon 01-01-2025 Complement C3 [Mass/Vol] 105 mg/dL Normal 86-166 [facility] Comment on above: Order Comment: Luis A weathers Type: BLOOD SPECIMENOrdering Facility: [facility] Address: [facility] [place] [address] Performed By: #### 4 485-9, 4498-2, 1987-08 ####[facility] LABCLIA [id number] [place] [address] [place] C4 SerPl-mCncon 01-01-2025 Complement C4 [Mass/Vol] 13 mg/dL Normal 13-46 [facility] Comment on above: Order Comment: Luis A weathers Type: BLOOD SPECIMENOrdering Facility: [facility] Address: [facility] [place] [address] Performed By: #### 4 485-9, 4498-2, 1987-08 ####[facility] LABCLIA [id number] [place] [address] [place] CBC W Auto Differential pane l (Bld)on 01-01-2025 Basophils (Bld) [#/Vol] 0.03 10*3/uL Normal <0.11 [facility] Comment on above: Order Comment: Luis A weathers Type: BLOOD SPECIMEN Ordering Facility: [facility] Address: [facility] [place] [address] Performed By: #### 1 920-8, 05663-8, 1742-6 #### [facility] CLIA [id number] [address] [place] [address] [place] Basophils/100 WBC (Bld) 0.7 % Normal [facility] Comment on above: Order Comment: Dennysi jasiel Type: BLOOD SPECIMEN Ordering Facility: [facility] Address: [facility] [place] [address] Performed By: #### 1 920-8, 10257-3, 1741-6 #### [facility] CLIA [id number] [address] [place] [address] [place] Differential cell count method Nom (Bld) Auto Normal [facility] Comment on above: Order Comment: Speci men Type: BLOOD SPECIMEN Ordering Facility: [facility] Address: [address] [place], [place] [address] [address] Performed By: #### 1 920-8, 89899-2, 1741-6 #### [facility] CLIA [id number] [address] [place] [address] [place] Eosinophils (Bld) [#/Vol] 0.12 10*3/uL Normal <0.46 [facility] Comment on above: Order Comment: Speci men Type: BLOOD SPECIMEN Ordering Facility: [facility] Address: [facility] [place] [address] Performed By: #### 1 920-8, 08955-8, 6 #### [facility] CLIA [id number] [address] [place] [address] [place] Eosinophils/100 WBC (Bld) 2.6 % Normal [facility] Comment on above: Order Comment: Dennysi jasiel Type: BLOOD SPECIMEN Ordering Facility: [facility] Address: [address] [place], [place] [address] [address] Performed By: #### 1 920-8, 69282-3, 6 #### [facility] CLIA [id number] [address] [place] [address] [place] Erythrocyte distribution width (RBC) [Ratio] 13.9 % Normal 11.5-15.0 [facility] Comment on above: Order Comment: Luis A weatehrs Type: BLOOD SPECIMEN Ordering Facility: [facility] Address: [place] [address] Performed By: #### 1 920-8, 78411-2, 1741-6 #### [facility] CLIA [id number] [address] [place] [address] [place] Hematocrit (Bld) [Volume fraction] 33.9 % Low 36.0-46.0 [facility] Comment on above: Order Comment: Luis A weathers Type: BLOOD SPECIMEN Ordering Facility: [facility] [place] [address] Performed By: #### 1 920-8, 40953-0, 1741-6 #### [facility] CLIA [id number] [address] [place] [address] [place] Hemoglobin (Bld) [Mass/Vol] 11.0 g/dL Low 11.5-15.5 [facility] Comment on above: Order Comment: Luis A weathers Type: BLOOD SPECIMEN Ordering Facility: [facility] [place] [address] Performed By: #### 1 920-8, 63538-1, 6 #### [facility] CLIA [id number] [address] [place] [address] [place] Immature granulocytes (Bld) [#/Vol] 10*3/uL Normal <0.10 [facility] Comment on above: Order Comment: Luis A weathers Type: BLOOD SPECIMEN Ordering Facility: [facility] [place] [address] Performed By: #### 1 920-8, 87896-4, 1741-6 #### [facility] CLIA [id number] [address] [place] [address] [place] Immature granulocytes/100 WBC (Bld) 0.2 % Normal [facility] Comment on above: Order Comment: Speci men Type: BLOOD SPECIMEN Ordering Facility: [facility] Address: [address] [place] [address] Performed By: #### 1 920-8, 75259-6, 1741-6 #### [facility] CLIA [id number] [address] [place] [address] [place] Lymphocytes (Bld) [#/Vol] 1.15 10*3/uL Normal 1.00-4.00 [facility] Comment on above: Order Comment: Speci men Type: BLOOD SPECIMEN Ordering Facility: [facility] Address: [address] [place] [address] Performed By: #### 1 920-8, 82094-8, 6 #### [facility] CLIA [id number] [address] [place] [address] [place] Lymphocytes/100 WBC (Bld) 25.3 % Normal [facility] Comment on above: Order Comment: Speci men Type: BLOOD SPECIMEN Ordering Facility: [facility] Address: [address] [place] [address] Performed By: #### 1 920-8, 90751-9, 6 #### [facility] CLIA [id number] [address] [place] [address] [place] MCH (RBC) [Entitic mass] 26.6 pg Normal 26.0-34.0 [facility] Comment on above: Order Comment: Speci men Type: BLOOD SPECIMEN Ordering Facility: [facility] Address: [address] [place] [address] Performed By: #### 1 920-8, 24311-5, 6 #### [facility] CLIA [id number] [address] [place] [address] [place] MCHC (RBC) [Mass/Vol] 32.4 g/dL Normal 30.5-36.0 [facility] Comment on above: Order Comment: Speci men Type: BLOOD SPECIMEN Ordering Facility: [facility] Address: [address] [place] [address] Performed By: #### 1 920-8, 04546-7, 6 #### [facility] CLIA [id number] [address] [place] [address] [place] MCV (RBC) [Entitic vol] 81.9 fL Normal 80.0-100.0 [facility] Comment on above: Order Comment: Speci men Type: BLOOD SPECIMEN Ordering Facility: [facility] Address: [address] [place] [id number] Performed By: #### 1 920-8, 45896-3, 1741-09 #### [facility] CLIA [id number] [address] [place] [address] [place] Monocytes (Bld) [#/Vol] 0.32 10*3/uL Normal <0.87 [facility] Comment on above: Order Comment: Speci men Type: BLOOD SPECIMEN Ordering Facility: [facility] Address: [address] [place] [address] Performed By: #### 1 920-8, 86444-3, 1741-09 #### [facility] CLIA [id number] [address] [place] [address] [place] Monocytes/100 WBC (Bld) 7.0 % Normal [facility] Comment on above: Order Comment: Speci men Type: BLOOD SPECIMEN Ordering Facility: [facility] Address: [address] [place] [id number] Performed By: #### 1 920-8, 79825-8, 1741-09 #### [facility] CLIA [id number] [address] [place] [address] [place] Neutrophils (Bld) [#/Vol] 2.92 10*3/uL Normal 1.45-7.50 [facility] Comment on above: Order Comment: Speci men Type: BLOOD SPECIMEN Ordering Facility: [facility] Address: [address] [place] [id number] Performed By: #### 1 920-8, 69832-2, 6 #### [facility] CLIA [id number] [address] [place] [address] [place] Neutrophils/100 WBC (Bld) 64.2 % Normal [facility] Comment on above: Order Comment: Speci men Type: BLOOD SPECIMEN Ordering Facility: [facility] Address: [address] [place] [id number] Performed By: #### 1 920-8, 11276-2, 6 #### [facility] CLIA [id number] [address] [place] [address] [place] Nucleated RBC (Bld) [#/Vol] 10*3/uL Normal <0.01 [facility] Comment on above: Order Comment: Speci men Type: BLOOD SPECIMEN Ordering Facility: [facility] Address: [address] [place] [id number] Performed By: #### 1 920-8, 07879-9, 1741-09 #### [facility] CLIA [id number] [address] [place] [address] [place] Nucleated RBC/100 WBC (Bld) [Ratio] 0.0 /100 WBC Normal [facility] Comment on above: Order Comment: Speci men Type: BLOOD SPECIMEN Ordering Facility: [facility] Address: [address] [place] [id number] Performed By: #### 1 920-8, 88991-8, 6 #### [facility] CLIA [id number] [address] [place] [address] [place] Platelet mean volume (Bld) [Entitic vol] 9.8 fL Normal 9.0-12.7 [facility] Comment on above: Order Comment: Speci men Type: BLOOD SPECIMEN Ordering Facility: [facility] Address: [address], [place] [address] Performed By: #### 1 920-8, 93611-3, 174-6 #### [facility] CLIA [id number] [address] [place] [address] [place] Platelets (Bld) [#/Vol] 238 10*3/uL Normal 150-400 [facility] Comment on above: Order Comment: Speci men Type: BLOOD SPECIMEN Ordering Facility: [facility] Address: [address] [facility] [place] [address] Performed By: #### 1 920-8, 68943-2, 174-6 #### [facility] CLIA [id number] [address] [place] [address] [place] RBC (Bld) [#/Vol] 4.14 10*6/uL Normal 3.90-5.20 [facility] Comment on above: Order Comment: Speci men Type: BLOOD SPECIMEN Ordering Facility: [facility] Address: [address] [place] [id number] Performed By: #### 1 920-8, 30646-7, 1741-6 #### [facility] CLIA [id number] [address] [place] [address] [place] WBC (Bld) [#/Vol] 4.55 10*3/uL Normal 3.70-11.00 [facility] Comment on above: Order Comment: Speci men Type: BLOOD SPECIMEN Ordering Facility: [facility] Address: [address] [facility] [place] [address] Performed By: #### 1 920-8, 61922-0, 174-6 #### [facility] CLIA [id number] [address] [place] [address] [place] CRP [facility] 01-01-2025 CRP [Mass/Vol] 0.9 mg/dL High <0.9 [facility] Comment on above: Order Comment: Luis A weathers Type: BLOOD SPECIMENOrdering Facility: [facility] Address: [facility] [place] [address] Performed By: #### 4 485-9, 4498-2, 1987-08 ####[facility] LABCLIA [id number] [place] [address] [place] Creatinine and Glomerular fi ltration rate.predicted panel (S/P/Bld)on 01-01-2025 Creatinine [Mass/Vol] 0.71 mg/dL Normal 0.58-0.96 [facility] Comment on above: Order Comment: Luis A weathers Type: BLOOD SPECIMENOrdering Facility: [facility] Address: [facility] [place] [address] Performed By: #### 1 742-6, 8, 87079-6 ####[facility] [id number] [place] [address] [place] eGFRcr SerPlBld CKD-EPI 2020 108 mL/min/1.73m??? Normal >=60 [facility] Comment on above: Order Comment: Luis A weathers Type: BLOOD SPECIMENOrdering Facility: [facility] Address: [facility] [place] [address] Result Comment: Yvonne mated Glomerular Filtration Rate (eGFR) is calculated using the 2020 CKD-EPI creatinine equation. This equation utilizes serum creatinine, sex, and age as parameters. The creatinine assay has traceable calibration to isotope dilution-mass spectrometry. Refer to KDIGO guidelines for clinical interpretation. In patients with unstable renal function, e.g. those with acute kidney injury, the eGFR may not accurately reflect actual GFR. Performed By: #### 1 742-6, 8, 73738-7 ####[facility]ENTERWNCLIA [id number] [place] [address] [place] DNA ANTIBODY DS BLDon 2024 DNA ANTIBODY 825 IU/mL High <=200 [facility] Comment on above: Order Comment: Luis A weathers Type: BLOOD SPECIMEN Ordering Facility: [facility] Address: [address] [place] [address] Result Comment: Nega tive: <200 IU/mL Equivocal: 201-300 IU/mL Moderate Positive: 301-800 IU/mL Strong Positive: >801 IU/mL Performed By: #### 1 920-8, 83492-1, 1742-6 #### [facility] CLIA [id number] [address] [place] [address] [place] DNA ANTIBODY QUALITATIVE INTERPRETATION Positive Abnormal Negative [facility] Comment on above: Order Comment: Luis A weathers Type: BLOOD SPECIMEN Ordering Facility: [facility] Address: [address] [place] [address] Performed By: #### 1 920-8, 42152-7, 1742-6 #### [facility] CLIA [id number] [address] [place] [address] [place] UREA NITROGEN, RANDOM URINEo n 01-01-2025 UREA NITROGEN,UR,RAN 542 mg/dL Normal 140-1500 [facility] Comment on above: Order Comment: Luis A weathers Type: BLOOD SPECIMEN Ordering Facility: [facility] Address: [address] [place], [place] [address] [address] Performed By: #### 1 920-8, 69829-7, 1742-6 #### [facility] CLIA [id number] [address] [place] [address] [place] Urinalysis complete panel (U )on 01-01-2025 Bacteria LM.HPF (Urine sed) [#/Area] Negative Normal Negative [facility] Comment on above: Order Comment: Luis A weathers Type: BLOOD SPECIMEN Ordering Facility: [facility] Address: [facility] [place] [address] Performed By: #### 1 920-8, 76790-5, 1742-6 #### [facility] CLIA [id number] [address] [place] [address] [place] Bilirubin Ql (U) Negative Normal Negative [facility] Comment on above: Order Comment: Speci men Type: BLOOD SPECIMEN Ordering Facility: [facility] Address: [address] , [place] [address] Performed By: #### 1 920-8, 74268-4, 1741-6 #### [facility] CLIA [id number] [address] [place] [address] [place] Clarity (Unsp spec) Clear Normal Clear [facility] Comment on above: Order Comment: Speci men Type: BLOOD SPECIMEN Ordering Facility: [facility] Address: [address] [place] [address] Performed By: #### 1 920-8, 42508-6, 1741-6 #### [facility] CLIA [id number] [address] [place] [address] [place] Color (U) Yellow Normal Yellow [facility] Comment on above: Order Comment: Speci men Type: BLOOD SPECIMEN Ordering Facility: [facility] Address: [address] , [place] [address] Performed By: #### 1 920-8, 32037-1, 1741-6 #### [facility] CLIA [id number] [address] [place] [address] [place] Epithelial cells LM.HPF (Urine sed) [#/Area] Moderate Normal [facility] Comment on above: Order Comment: Speci men Type: BLOOD SPECIMEN Ordering Facility: [facility] Address: [address] , [place] [id number] Performed By: #### 1 920-8, 77757-0, 1741-6 #### [facility] CLIA [id number] [address] [place] [address] [place] Glucose Test strip (U) [Mass/Vol] Negative Normal Negative [facility] Comment on above: Order Comment: Speci men Type: BLOOD SPECIMEN Ordering Facility: [facility] Address: [address] [place] [id number] Performed By: #### 1 920-8, 02370-7, 1741-6 #### [facility] CLIA [id number] [address] [place] [address] [place] Hemoglobin Ql (U) Negative Normal Negative [facility] Comment on above: Order Comment: Speci men Type: BLOOD SPECIMEN Ordering Facility: [facility] Address: [address] [place] [address] Performed By: #### 1 920-8, 64856-6, 1741-6 #### [facility] CLIA [id number] [address] [place] [address] [place] Hyaline casts (Urine sed) [#/Area] 0 /[LPF] Normal 0 /LPF [facility] Comment on above: Order Comment: Speci men Type: BLOOD SPECIMEN Ordering Facility: [facility] Address: [address] [place] [address] Performed By: #### 1 920-8, 25559-6, 1741-6 #### [facility] CLIA [id number] [address] [place] [address] [place] Ketones Ql (U) Negative Normal Negative [facility] Comment on above: Order Comment: Speci men Type: BLOOD SPECIMEN Ordering Facility: [facility] Address: [address] [place] [address] Performed By: #### 1 920-8, 35396-2, 1741-6 #### [facility] CLIA [id number] [address] [place] [address] [place] Leukocyte esterase Test strip Ql (U) 1+ Abnormal Negative [facility] Comment on above: Order Comment: Speci men Type: BLOOD SPECIMEN Ordering Facility: [facility] Address: [address] [place] [address] Performed By: #### 1 920-8, 52465-9, 1741-6 #### [facility] CLIA [id number] [address] [place] [address] [place] Nitrite Ql (U) Negative Normal Negative [facility] Comment on above: Order Comment: Speci men Type: BLOOD SPECIMEN Ordering Facility: [facility] Address: [address] [facility], [place] [address] Performed By: #### 1 920-8, 03694-4, 1741-6 #### [facility] CLIA [id number] [address] [place] [address] [place] pH (U) 6.0 [pH] Normal 5.0-8.0 [facility] Comment on above: Order Comment: Speci men Type: BLOOD SPECIMEN Ordering Facility: [facility] Address: [facility] [address] [facility], [place] [address] Performed By: #### 1 920-8, 57144-6, 6 #### [facility] CLIA [id number] [address] [place] [address] [place] Protein (U) [Mass/Vol] Trace Abnormal Negative [facility] Comment on above: Order Comment: Speci men Type: BLOOD SPECIMEN Ordering Facility: [facility] Address: [facility] [address] [facility] [place] [address] Performed By: #### 1 920-8, 04324-5, 6 #### [facility] CLIA [id number] [address] [place] [address] [place] RBC LM.HPF (Urine sed) [#/Area] 0-2 /HPF Normal 0-2 /HPF [facility] Comment on above: Order Comment: Speci men Type: BLOOD SPECIMEN Ordering Facility: [facility] Address: [address] [facility], [place] [address] Performed By: #### 1 920-8, 74259-4, 1741-6 #### [facility] CLIA [id number] [address] [place] [address] [place] Specific gravity (U) [Rel density] 1.019 Normal 1.005-1.030 [facility] Comment on above: Order Comment: Speci men Type: BLOOD SPECIMEN Ordering Facility: [facility] Address: [address] [place] [address] Performed By: #### 1 920-8, 95179-2, 1742-6 #### [facility] CLIA [id number] [address] [place] [address] [place] Urobilinogen Ql (U) 0.2 EU/dL Normal 0.2-1.0 EU/dL [facility] Comment on above: Order Comment: Speci men Type: BLOOD SPECIMEN Ordering Facility: [facility] Address: [address] [place] [address] Performed By: #### 1 920-8, 75665-9, 1742-6 #### [facility] CLIA [id number] [address] [place] [address] [place] WBC LM.HPF (Urine sed) [#/Area] 0-5 /HPF Normal 0-5 /HPF [facility] Comment on above: Order Comment: Speci men Type: BLOOD SPECIMEN Ordering Facility: [facility] Address: [address] [place] [address] Performed By: #### 1 920-8, 08133-6, 1742-6 #### [facility] CLIA [id number] [address] [place] [address] [place] ALLIED HEALTHon 12-20-2024 ALLIED HEALTH HNO ID: [id number] Author: ROSHNI PERERA, CT Service: Radiology Author Type: Technologist Type: Allied Health Filed: 12/20/2024 13:17 Note Text: Radiology Service Progress Note PATIENT NAME: Tamy Vazquez DATE OF SERVICE: December 20, 2024 TIME: 1:16 PM PATIENT IDENTITY VERIFICATION COMPLETED USING TWO (2) IDENTIFIERS: Name and Date of confirmed by patient verbally and Name and Date of confirmed by identification band. FALL SCREENING: Has the patient had 2 falls in the last year or 1 fall with injury or currently using an Ambulatory Assistive Device (Walker, Cane, Wheelchair, Crutches, etc.)? Emergency Room Patient: Screened in ED PATIENT GENDER DATA: Assigned female at . status: : No status: NO. PATIENT RELEVANT IMPLANT DATA REVIEWED: Not Applicable PATIENT PRESENTS WITH AN IMPLANTABLE OR ATTACHED SIGN WRITER LETTERER OR PAINTER: No RADIOLOGY DEPARTMENT: CT; Exam(s) Completed: Chest. Anesthesia: No PERIPHERAL IV DATA: Inpatient: see LDA documentation SIGNED BY: BEST Gómez December 20, 2024 1:16 PM Normal [facility] HNO ID: [id number] Author: GYPSY BYRNES RT(R) Service: Radiology Author Type: Supervisor Motor Vehicle Assembly Type: Allied Health Filed: 12/20/2024 11:00 Note Text: Radiology Service Progress Note PATIENT NAME: Tamy Vazquez DATE OF SERVICE: December 20, 2024 TIME: 10:59 AM PATIENT IDENTITY VERIFICATION COMPLETED USING TWO (2) IDENTIFIERS: Name and Date of confirmed by patient verbally. FALL SCREENING: Has the patient had 2 falls in the last year or 1 fall with injury or currently using an Ambulatory Assistive Device (Walker, Cane, Wheelchair, Crutches, etc.)? Emergency Room Patient: Screened in ED PATIENT GENDER DATA: Assigned female at . status: : No status: NO. PATIENT RELEVANT IMPLANT DATA REVIEWED: Not Applicable PATIENT PRESENTS WITH AN IMPLANTABLE OR ATTACHED SIGN WRITER LETTERER OR PAINTER: No RADIOLOGY DEPARTMENT: General X-ray: Exam(s) Completed: Chest X-Ray Pelvis X-Ray: Pelvis General AP PERIPHERAL IV DATA: Not applicable SIGNED BY: RT Kishore(Paul) December 20, 2024 10:59 AM Normal [facility] CBC panel Auto (Bld)on 12-20 Erythrocyte distribution width (RBC) [Ratio] 13.7 % Normal 11.5-15.0 [facility] Comment on above: Order Comment: Speci men Type: BLOOD SPECIMEN Ordering Facility: [facility] Address: [address] [place] [address] Performed By: #### 5 8410-2 #### [facility] CLIA [id number] [address] Hematocrit (Bld) [Volume fraction] 37.6 % Normal 36.0-46.0 [facility] Comment on above: Order Comment: Speci men Type: BLOOD SPECIMEN Ordering Facility: [facility] Address: [address] [place] [address] Performed By: #### 5 8410-2 #### [facility] CLIA [id number] [address] [place] Hemoglobin (Bld) [Mass/Vol] 11.9 g/dL Normal 11.5-15.5 [facility] Comment on above: Order Comment: Speci men Type: BLOOD SPECIMEN Ordering Facility: [facility] Address: [address] [place] [address] Performed By: #### 5 8410-2 #### [facility] CLIA [id number] [address] MCH (RBC) [Entitic mass] 26.2 pg Normal 26.0-34.0 [facility] Comment on above: Order Comment: Speci men Type: BLOOD SPECIMEN Ordering Facility: [facility] Address: [address] [place] [address] Performed By: #### 5 8410-2 #### [facility] CLIA [id number] [address] MCHC (RBC) [Mass/Vol] 31.6 g/dL Normal 30.5-36.0 [facility] Comment on above: Order Comment: Speci men Type: BLOOD SPECIMEN Ordering Facility: [facility] Address: [address] [place] [address] Performed By: #### 5 8410-2 #### [facility] CLIA [id number] [address] MCV (RBC) [Entitic vol] 82.6 fL Normal 80.0-100.0 [facility] Comment on above: Order Comment: Speci men Type: BLOOD SPECIMEN Ordering Facility: [facility] Address: [address] [place] [address] Performed By: #### 5 8410-2 #### [facility] CLIA [id number] [address] [place] [address] [place] Nucleated RBC (Bld) [#/Vol] 10*3/uL Normal <0.01 [facility] Comment on above: Order Comment: Speci men Type: BLOOD SPECIMEN Ordering Facility: [facility] Address: [address] [place] [address] Performed By: #### 5 8410-2 #### [facility] CLIA [id number] [address] [place] [address] [place] Platelet mean volume (Bld) [Entitic vol] 10.5 fL Normal 9.0-12.7 [facility] Comment on above: Order Comment: Speci men Type: BLOOD SPECIMEN Ordering Facility: [facility] Address: [address] [place] [address] Performed By: #### 5 8410-2 #### [facility] CLIA [id number] [address] [place] Platelets (Bld) [#/Vol] 251 10*3/uL Normal 150-400 [facility] Comment on above: Order Comment: Speci men Type: BLOOD SPECIMEN Ordering Facility: [facility] Address: [address] [place] [address] Performed By: #### 5 8410-2 #### [facility] CLIA [id number] [address] [place] RBC (Bld) [#/Vol] 4.55 10*6/uL Normal 3.90-5.20 [facility] Comment on above: Order Comment: Speci men Type: BLOOD SPECIMEN Ordering Facility: [facility] Address: [address] [place] [address] Performed By: #### 5 8410-2 #### [facility] CLIA [id number] [address] [place] WBC (Bld) [#/Vol] 5.11 10*3/uL Normal 3.70-11.00 [facility] Comment on above: Order Comment: Speci men Type: BLOOD SPECIMEN Ordering Facility: [facility] Address: [address] [place] [id number] Performed By: #### 5 8410-2 #### [facility] CLIA [id number] [address] [place] [address] [place] CHEST W IVCONon 5 CT CHEST W IVCON * * *Final Report* * * DATE OF EXAM: Dec 20 2024 1:17PM [facility] [place] CHEST W IVCON / PROCEDURE REASON: Chest trauma, blunt * * * * Physician Interpretation * * * * EXAMINATION: CHEST CT WITH CONTRAST CLINICAL HISTORY: Wound draining in a ground for pain isn't is there anything should be aware of Technique: Spiral CT acquisition of the chest from the thoracic inlet to the upper abdomen following IV contrast. MQ: CTCW_6 Contrast: 50 mL Omnipaque [address] Radiation dose: Integrated Dose-length product (DLP) for this visit = 103 mGy*cm CT Dose Reduction Employed: Automated exposure control(AEC) and iterative recon Comparison: 01/07/2023 RESULT: Limitations: None. Lines, tubes, and devices: None. Lung parenchyma and airways: * There is extensive subpleural reticulation and honeycombing throughout both lungs. The honeycombing is most severe in the lung bases. These changes are very similar to the previous study * No focal consolidation is seen. Pleural space: No pleural effusion. No pleural thickening. Lower neck, lymph nodes, and mediastinum: The imaged thyroid gland is normal. There are numerous axillary lymph nodes. The largest one is in the LEFT axillary region measures approximately 9 mm in maximum short axis this is similar in appearance to the previous study. No lymphadenopathy in the supraclavicular, axillary, mediastinal, or hilar regions. * There is a moderate size hiatal hernia prominent air-fluid level within the hernia. * Esophagus is mildly dilated and contains an air-fluid level to the level of the neck. Heart, pericardium, and thoracic vessels: The thoracic aorta and main pulmonary artery are normal in caliber. The cardiac chambers are normal in size. No coronary artery atherosclerotic calcifications are noted, although the study is not optimized for coronary assessment. No pericardial effusion or thickening. Bones and soft tissues: No destructive bone lesion. Chest wall is unremarkable. Upper abdomen: No abnormality in the imaged upper abdomen. Localizer images: No additional findings. IMPRESSION: 1. There is extensive honeycombing predominantly in the lower lobes similar to the previous study. This is compatible with pulmonary fibrosis 2. No definite acute changes identified Bleach Machine Operator: EDGAR Transcribe Date/Time: Dec 20 2024 1:36P Dictated by : MAXWELL GONZALEZ DO This examination was interpreted and the report reviewed and electronically signed by: MAXWELL GONZALEZ DO on Dec 20 2024 1:50PM EST [id number] Normal [facility] Comprehensive metabolic 2000 panelon 12-20-2024 Albumin [Mass/Vol] 3.9 g/dL Normal 3.9-4.9 [facility] Comment on above: Order Comment: Luis A weathers Type: BLOOD SPECIMEN Ordering Facility: [facility] Address: [address] [place] [address] Performed By: #### 2 4323-8, HSTNT, 3040-3 #### [facility] CLIA [id number] [address] STATES OF [facility] ALP [Catalytic activity/Vol] 105 U/L Normal 34-123 [facility] Comment on above: Order Comment: Luis A weathers Type: BLOOD SPECIMEN Ordering Facility: [facility] Address: [address] [place] [address] Performed By: #### 2 4323-8, HSTNT, 3040-3 #### [facility] CLIA [id number] [address] STATES OF [facility] ALT [Catalytic activity/Vol] 17 U/L Normal 7-38 [facility] Comment on above: Order Comment: Dennysi men Type: BLOOD SPECIMEN Ordering Facility: [facility] Address: [address] [place] [address] Performed By: #### 2 4323-8, HSTNT, 3040-3 #### [facility] CLIA [id number] [address] Anion gap [Moles/Vol] 10 mmol/L Normal 8-15 [facility] Comment on above: Order Comment: Luis A weathers Type: BLOOD SPECIMEN Ordering Facility: [facility] Address: [address] [place] [address] Performed By: #### 2 4323-8, HSTNT, 3040-3 #### [facility] CLIA [id number] [address] [place] [address] [place] AST [Catalytic activity/Vol] 20 U/L Normal 13-35 [facility] Comment on above: Order Comment: Speci men Type: BLOOD SPECIMEN Ordering Facility: [facility] Address: [address] [place] [address] Performed By: #### 2 4323-8, HSTNT, 3040-3 #### [facility] CLIA [id number] [address] [place] [address] [place] Bilirubin [Mass/Vol] 0.5 mg/dL Normal 0.2-1.3 [facility] Comment on above: Order Comment: Speci men Type: BLOOD SPECIMEN Ordering Facility: [facility] Address: [address] [place] [address] Performed By: #### 2 4323-8, HSTNT, 0-3 #### [facility] CLIA [id number] [address] [place] [address] [place] Calcium [Mass/Vol] 8.8 mg/dL Normal 8.5-10.2 [facility] Comment on above: Order Comment: Speci men Type: BLOOD SPECIMEN Ordering Facility: [facility] Address: [address] [place] [address] Performed By: #### 2 4323-8, HSTNT, 3040-3 #### [facility] CLIA [id number] [address] [place] [address] [place] Chloride [Moles/Vol] 102 mmol/L Normal 98-107 [facility] Comment on above: Order Comment: Speci men Type: BLOOD SPECIMEN Ordering Facility: [facility] Address: [address] [place] [address] Performed By: #### 2 4323-8, HSTNT, 3040-3 #### [facility] CLIA [id number] [address] [place] [address] [place] CO2 [Moles/Vol] 26 mmol/L Normal 22-30 [facility] Comment on above: Order Comment: Speci men Type: BLOOD SPECIMEN Ordering Facility: [facility] Address: [address] [place] [address] Performed By: #### 2 4323-8, HSTNT, 3040-3 #### [facility] CLIA [id number] [address] STATES OF [facility] Creatinine [Mass/Vol] 0.74 mg/dL Normal 0.58-0.96 [facility] Comment on above: Order Comment: Luis A weathers Type: BLOOD SPECIMEN Ordering Facility: [facility] Address: [address] [place] [address] Performed By: #### 2 4323-8, HSTNT, 0-3 #### [facility] CLIA [id number] [address] eGFRcr SerPlBld CKD-EPI 2020 102 mL/min/1.73m??? Normal >=60 [facility] Comment on above: Order Comment: Luis A weathers Type: BLOOD SPECIMEN Ordering Facility: [facility] Address: [address] [place] [address] Result Comment: Yvonne mated Glomerular Filtration Rate (eGFR) is calculated using the 2020 CKD-EPI creatinine equation. This equation utilizes serum creatinine, sex, and age as parameters. The creatinine assay has traceable calibration to isotope dilution-mass spectrometry. Refer to KDIGO guidelines for clinical interpretation. In patients with unstable renal function, e.g. those with acute kidney injury, the eGFR may not accurately reflect actual GFR. Performed By: #### 2 4323-8, HSTNT, 0-3 #### [facility] CLIA [id number] [address] [place] Glucose [Mass/Vol] 87 mg/dL Normal 74-99 [facility] Comment on above: Order Comment: Luis A weathers Type: BLOOD SPECIMEN Ordering Facility: [facility] Address: [address] [place] [address] Result Comment: The [place] Diabetes Association (ADA) provides guidance for cutoff values for fasting glucose and random glucose. The ADA defines fasting as no caloric intake for at least 8 hours. Fasting plasma glucose results between 100 to 125 mg/dL indicate increased risk for diabetes (prediabetes). Fasting plasma glucose results greater than or equal to 126 mg/dL meet the criteria for diagnosis of diabetes. In the absence of unequivocal hyperglycemia, results should be confirmed by repeat testing. In a patient with classic symptoms of hyperglycemia or hyperglycemic crisis, random plasma glucose results greater than or equal to 200 mg/dL meet the criteria for diagnosis of diabetes. Reference: Standards of Medical Care in Diabetes 2016, [place] [employer] Association.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 (hysterectomy) Mother Osteoporosis Mother Asthma Mother Hypertension Father Diabetes Father other (seasonal allergies) Brother No Known Problems Maternal Grandmother No Known Problems Maternal Grandfather No Known Problems Paternal Grandmother Heart Attack Paternal Grandfather ADD/ADHD Son SOCIAL HISTORY Social History Tobacco Use Smoking status: Never Smokeless tobacco: Never Vaping Use Vaping status: Never Used Substance Use Topics Alcohol use: Yes Alcohol/week: 2.0 standard drinks of alcohol Types: 2 Glasses of Wine (5oz) per week Comment: occasional Drug use: No REVIEW OF SYSTEMS Abdomen: No abdominal pain, nausea, vomiting, diarrhea, or constipation. No bloating, early satiety, indigestion, or increased flatulence. Bladder: No dysuria, gross hematuria, urinary frequency, urinary urgency, or incontinence. Breast: No breast lumps, nipple d/c, overlying skin changes, redness or skin retraction. Allergies and current medication updated:Yes SENSITIVE EXAM: The sensitive examination was discussed with the Patient or Patient's Authorized Evp General Counsel. As applicable, any other physician, advance practice provider, medical student, or other health professional student that will be observing or involved in the sensitive examination for educational or training purposes was discussed with the Patient or Authorized Evp General Counsel. The Patient or Authorized Evp General Counsel has agreed to proceed with the sensitive examination. (Sensitive examination includes inspection and/or palpation of the breasts, pelvis, prostate and anorectal regions). EXAM: BP 90/64 Ht 5' 3.189 (1.61m) Wt 116 lb (52.6kg) LMP 03/23/2020 BMI 20.43 kg/(m2). GENERAL: pleasant, female in no apparent distress HEENT: Normocephalic, atraumatic, mucus membranes moist, and no lesions NECK: Supple, full range of motion, no adenopathy, and thyroid normal DERMATOLOGY: Normal, without lesions, non-icteric, and non-hirsute RONALD (more content not included)... Normal [facility] ECHOon 10-04-2024 Echocardiography Echocardiography Rep ort: Transthoracic Echo [facility] Date of service: 10/04/2024 9:14:43 AM CLERK [employer] Ordering physician: ALAN RENE Exam indication: Shortness of Breath Technologist: Maik Bernard Interpreting physician: Oren Abdul MD PATIENT: Name: TAMY VAZQUEZ : 1980 Age: 44 years Gender: F Primary rhythm: sinus. Height: 161.30 cm BSA: 1.55 m Weight: 53.50 kg BMI: 20.6 kg/m Heart rate 85 bpm Blood pressure 100/68 mmHg Color Doppler was utilized to interrogate the cardiac valves assessed and spectral Doppler was utilized to determine the flow velocities and pressure gradients reported in this exam. Myocardial strain analysis was performed in this exam to aid in the assessment of cardiac function. MEASUREMENTS: Value Indexed Normal Max aortic dimension 3.0 cm Ao < 3.8 Left atrial volume 28 ml (4ch A-L) 18 ml/m Jennifer <= 34 LV ID (diastole) 4.0 cm (2D) 2.61 cm/m LV ID (systole) 2.9 cm (2D) 1.87 cm/m IVS, leaflet tips 0.8 cm (2D) Posterior wall thickness 0.8 cm (2D) Left ventricular mass 95 g (2D) 61 g/m Global peak long strain -18.7 % LV stroke volume 35 ml (2D biplane) LV end diastolic volume 63 ml (2D biplane) 40.9 ml/m 29<=EDVi<62 LV end systolic volume 28 ml (2D biplane) 18.0 ml/m Ejection Fraction 56 % (2D biplane) EF > 54 FINDINGS: LEFT VENTRICLE The left ventricle is normal in size. Left ventricular systolic function is normal. Global LV myocardial strain is normal. Normal left ventricular diastolic function. Mitral annular lateral E/e': 3.4. Mitral annular septal E/e': 4.5. Wall Motion: All scored segments are normal. RIGHT VENTRICLE The right ventricle is normal in size. Right ventricular systolic function is normal. RV systolic tissue Doppler velocity is 16.0 cm/s. Tricuspid annular displacement is 1.7 cm. Estimated right ventricular systolic pressure is 19 mmHg consistent with normal pulmonary artery pressures. Estimated right atrial pressure is 3 mmHg based on IVC assessment. LEFT ATRIUM The left atrial cavity is normal in size. Pulmonary Veins: The pulmonary venous pattern showed normal systolic flow. RIGHT ATRIUM The right atrial cavity is normal in size. Inferior Vena Cava: The inferior vena cava appears normal measuring 1.4 cm. The vessel decreases greater than 50 percent with inspiration. MITRAL VALVE The mitral valve leaflets are structurally normal. There is no mitral valve regurgitation. The pressure half time is 72 msec. The peak mitral E/A ratio is 0.97. The average mitral E/e' ratio is 3.9. The mitral flow deceleration time is 247 msec. TRICUSPID VALVE The tricuspid valve leaflets are structurally normal. There is trace tricuspid valve regurgitation. The hepatic venous pattern showed normal systolic flow. AORTIC VALVE The aortic valve cusps are structurally normal. There is no aortic valve stenosis. There is no aortic valve regurgitation. Tricuspid aortic valve. PULMONIC VALVE The pulmonic valve cusps are structurally normal. There is no pulmonic valve stenosis. There is no pulmonic valve regurgitation. AORTA The visualized aorta is normal in size. Measurements - Sinus: 3.0 cm. Mid ascending aorta 2.4 cm. Distal ascending aorta 2.4 cm. Mid arch 2.5 cm. PULMONARY ARTERIES The pulmonary arteries are normal. INTERATRIAL SEPTUM The interatrial septum is normal. There is no evidence of intracardiac shunting as detected by Doppler. INTERVENTRICULAR SEPTUM The interventricular septum is normal. PERICARDIUM The pericardium is normal. There is no pericardial effusion. There is an epicardial fat pad. CORONARY ARTERIES The coronary arteries are unseen or not interrogated. CONCLUSIONS: - Exam indication: Shortness of Breath - The left ventricle is normal in size. Left ventricular systolic function is normal. EF = 56 5% (2D biplane). Normal left ventricular diastolic function. - The right ventricle is normal in size. Right ventricular systolic function is normal. - There are no significant valvular abnormalities. - Exam was compared with the prior echocardiographic exam performed on 01/08/2022. There is no significant change. * * * Final * * * [employer] [facility] Image : [id number] Normal [facility] CNPNon 10-02-2024 CNPN Telephone (ENAGAK) -------- TAMY VAZQUEZ ([id number]) 1980 F Date Time Provider Department 10/02/24 LORA RODRIGUES During your visit today, we recorded the following information about you: Lora Rodrigues MD 10/02/2024 6:11 AM Signed 10/01/24 labs reviewed. Calcium 8.7; low normal Creatinine 0.68 Vitamin D 35 PTH 34 Plan: To call pt. - Increase Tums Ultra to 3 daily, to take with food; can take 2 Tums and 1 Calcium Citrate with Vitamin D daily. - Check how much total Vit D she is taking; only in MVI or extra as well? - Reclast ordered. Mona Swenson MA 10/02/2024 3:09 PM Signed Spoke with patient and she requested instructions be sent via [employer]. [facility]. Mona Swenson.Mona Mark MA 11/02/2024 9:47 AM Addendum Pt l/m she is taking 1200 D3 was not regular before but has been regular past couple of weeks and also taking 2 tums for calcium Mona Swenson.Lora Davies MD 10/31/2024 3:25 PM Signed Noted. Plan as prev D/W pt. Allergies As of Date: 10/02/2024 Noted Allergy Reaction AMERIGEL (ZINC ACETATE) 08/30/2006 Comments: Daniel burning at area CEFDINIR 06/04/2020 14 - Other: See Comments Comments: Dizzy FLAGYL (METRONIDAZOLE) 01/17/2008 5 - Intolerance 8 - GI Upset Comments: Nausea, fatigue, poor appetite Date Reviewed: 09/26/2024 Reviewed by: Shonda Lucia MA - Fully Assessed Reason for Visit: Results [95] Reclast order [Other] Primary Visit Diagnosis:Osteoporosis without current pathological fracture, unspecified osteoporosis type [M81.0] Order(s):[] zoledronic acid 5 mg PREMIX piggyback (RECLAST)Disp: Rfl: Prescriptions as of 11/12/2024 - mycophenolate sodium DR (MYFORTIC) 180 mg EC tablet Take 4 tablets by mouth two times a day. One AM 3 PM - budesonide-formoterol (SYMBICORT) 160-4.5 mcg/actuation inhaler inhale 2 puffs by mouth twice a day - RINSE MOUTH WITH WATER AFT... (REFER TO PRESCRIPTION NOTES). - mycophenolate sodium DR (MYFORTIC) 360 mg TbEC Take 1 tablet by mouth once daily. - DHEA vaginal suppository 13 mg (CPD) Unwrap and insert 1 suppository vaginally at bedtime. Refrigerate remainder of package. - Cholecalciferol, Vitamin D3, (VITAMIN D) 25 mcg (1,000 unit) cap Take 2 capsules by mouth once daily. - ketoconazole (NIZORAL) 2 % shampoo Ketoconazole 2 % External Shampoo WASH THE SCALP DAILY - LATHER - LEAVE ON FOR 3-5 MINUTES, THEN RINSE Quantity: 120 Refills: 0 Ordered: 29-Jul-2020 DO Start : 14-Jan-2020 Complete - Spirometers and Accessories gary 1 Device four times daily. - warfarin (COUMADIN) 2 mg tablet Take 1.5 tablets by mouth daily as directed. - montelukast (SINGULAIR) 10 mg tablet Take 10 mg by mouth daily at bedtime. - fexofenadine HCl (ERNESTINE ORAL) Take by mouth as needed. - Doxycycline Monohydrate 40 mg capsule Take 40 mg by mouth once daily. - hydrOXYchloroQUINE (PLAQUENIL) 200 mg tablet Take 200 mg by mouth once daily. Meds Comments as of 12/09/2010: 12/09/10 Procardia on hold. She takes this during the winter months. She will increase coumadin to 3 mg - and 2 mg other days. Problem List As Of Date 10/02/2024 Noted Resolved ABNORMAL THYROID FUNCT STUDY [R94.6] 05/29/2004 Blood clotting disorder (HCC) [D68.9] 06/11/2005 ANEMIA NOS [D64.9] 06/11/2005 PHLEBITIS INTRCRAN SINUS [G08] 06/11/2005 JOINT PAIN-HAND [M25.549] 04/12/2006 OPEN WOUND FINGER-COMPL [S61.209A] 04/12/2006 ONYCHIA OF TOE [L03.039] 08/16/2006 Phlebitis and thrombophlebitis of other site [I*05/12/2007 08/12/2022 Raynaud's syndrome [I73.00] 07/08/2022 Dermatophytosis of nail [B35.1] 06/15/2007 CERVICALGIA [M54.2] 11/09/2007 Monoclonal paraproteinemia [D47.2] 05/16/2008 04/07/2010 Asthma [J45.909] 06/12/2009 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] 06/12/2009 MCTD (mixed connective tissue disease) [M35.1] 06/29/2010 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/2010 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] 10/23/2010 Chronic anticoagulation [Z79.01] 10/23/2010 Iron deficiency anemia, unspecified [D50.9] 09/18/2012 Menorrhagia [N92.0] 10/09/2012 Pelvic pain in female [R10.2] 04/25/2013 12/29/2017 Hypercalcemia [E83.52] 04/25/2013 Osteoporosis without current pathological fract*05/29/2013 Hyperparathyroid (HCC) [E21.3] 05/29/2013 Rib fracture [S22.39XA] 06/19/2014 Nasal crusting [J34.89] 06/19/2014 Acute deep vein thrombosis (DVT) of upper extre*04/30/2015 Metrorrhagia [N92.1] 02/08/2018 08/12/2022 Pelvic pain in female [R10.2] 02/08/2018 Abdominal bloating [R14.0] 02/08/2018 Uterine polyp-removed [N84.0] 02/08/2018 POI vs early menopause [E28.39] 07/18/2019 Hx of cerebral venous sinus thrombosis time of *07/18/2019 Abnormal PFTs [R94.2] 07/09/2020 ILD (interstitial lung disease) (HCC) [J84.9] 07/09/2020 Encounter for screening mammogram for malignant*06/15/2022 hx (more content not included)... Normal [facility] 25(OH)D3 SerPl-mCncon 2024 25-hydroxyvitamin D3 [Mass/Vol] 35.0 ng/mL Normal 31.0-80.0 [facility] Comment on above: Order Comment: Speci men Type: BLOOD SPECIMENOrdering Facility: [facility] Address: [address] [place] [address] Performed By: #### 1 989-3 ####[facility] LABCLIA [id number] [place] [address] [place] ALT SerPl-cCncon 10-01-2024 ALT [Catalytic activity/Vol] 13 U/L Normal 7-38 [facility] Comment on above: Order Comment: Speci men Type: BLOOD SPECIMEN Ordering Facility: [facility] Address: [facility] [place] [address] Performed By: #### 1 920-8, 48353-3, 174-6 #### [facility] CLIA [id number] [address] [place] [address] [place] AST SerPl-cCncon 10-01-2024 AST [Catalytic activity/Vol] 22 U/L Normal 13-35 [facility] Comment on above: Order Comment: Speci men Type: BLOOD SPECIMEN Ordering Facility: [facility] Address: [facility] [place] [address] Performed By: #### 1 920-8, 97037-5, 174-6 #### [facility] CLIA [id number] [address] [place] [address] [place] Basic metabolic 2000 panelon 10-01-2024 Anion gap [Moles/Vol] 12 mmol/L Normal 8-15 [facility] Comment on above: Order Comment: Speci men Type: BLOOD SPECIMENOrdering Facility: [facility] Address: [address] [place], [place] [address] Performed By: #### 4 498-2, 1987-08, , 4484-12 ####[facility] LABCLIA [id number] [address] [address] [place] Calcium [Mass/Vol] 8.7 mg/dL Normal 8.5-10.2 [facility] Comment on above: Order Comment: Speci men Type: BLOOD SPECIMENOrdering Facility: [facility] Address: [address] [place], [place] [address] Performed By: #### 4 498-2, 1987-08, , 4484-12 ####[facility] LABIA [id number] [address] [address] [place] Chloride [Moles/Vol] 106 mmol/L Normal 98-107 [facility] Comment on above: Order Comment: Speci men Type: BLOOD SPECIMENOrdering Facility: [facility] Address: [address] [place] [address] Performed By: #### 4 498-2, 1987-08, , 4484-12 ####[facility] LABCLIA [id number] [address] [address] [place] CO2 [Moles/Vol] 23 mmol/L Normal 22-30 [facility] Comment on above: Order Comment: Speci men Type: BLOOD SPECIMENOrdering Facility: [facility] Address: [address] [place] [address] Performed By: #### 4 498-2, 1987-08, , 4484-12 ####[facility] LABIA [id number] [address] [address] [place] Creatinine [Mass/Vol] 0.68 mg/dL Normal 0.58-0.96 [facility] Comment on above: Order Comment: Luis A weathers Type: BLOOD SPECIMENOrdering Facility: [facility] Address: [address] [place] [address] Performed By: #### 4 498-2, 1987-08, , 4484-12 ####[facility] LABIA [id number] [address] [address] [place] Creatinine and Glomerular filtration rate.predicted panel (S/P/Bld) 110 mL/min/1.73m??? Normal >=60 [facility] Comment on above: Order Comment: Luis A weathers Type: BLOOD SPECIMENOrdering Facility: [facility] Address: [address] [place] [address] Result Comment: Yvonne mated Glomerular Filtration Rate (eGFR) is calculated using the 2020 CKD-EPI creatinine equation. This equation utilizes serum creatinine, sex, and age as parameters. The creatinine assay has traceable calibration to isotope dilution-mass spectrometry. Refer to KDIGO guidelines for clinical interpretation. In patients with unstable renal function, e.g. those with acute kidney injury, the eGFR may not accurately reflect actual GFR. Performed By: #### 4 498-2, 1987-08, , 4484-12 ####[facility] LABIA [id number] [address] [address] [place] Glucose [Mass/Vol] 79 mg/dL Normal 74-99 [facility] Comment on above: Order Comment: Luis A weathers Type: BLOOD SPECIMENOrdering Facility: [facility] Address: [address] [place] [address] Result Comment: The [place] Diabetes Association (ADA) provides guidance for cutoff values for fasting glucose and random glucose. The ADA defines fasting as no caloric intake for at least 8 hours. Fasting plasma glucose results between 100 to 125 mg/dL indicate increased risk for diabetes (prediabetes). Fasting plasma glucose results greater than or equal to 126 mg/dL meet the criteria for diagnosis of diabetes. In the absence of unequivocal hyperglycemia, results should be confirmed by repeat testing. In a patient with classic symptoms of hyperglycemia or hyperglycemic crisis, random plasma glucose results greater than or equal to 200 mg/dL meet the criteria for diagnosis of diabetes. Reference: Standards of Medical Care in Diabetes 2016, [place] [employer] Association. Diabetes Care. 2016.39(Suppl 1). Performed By: #### 4 498-2, 1987-08, , 4484-12 ####[facility] LABCLIA [id number] [address] [address] [place] Potassium [Moles/Vol] 3.9 mmol/L Normal 3.7-5.1 [facility] Comment on above: Order Comment: Speci men Type: BLOOD SPECIMENOrdering Facility: [facility] Address: [address] [place] [address] Performed By: #### 4 498, 1987-08, , 4484-12 ####[facility] LABCLIA [id number] [place] [id number] [place] Sodium [Moles/Vol] 141 mmol/L Normal 136-144 [facility] Comment on above: Order Comment: Speci men Type: BLOOD SPECIMENOrdering Facility: [facility] Address: [address] [place] [address] Performed By: #### 4 498, 1987-08, , 4484-12 ####[facility] LABCLIA [id number] [address] [address] [place] Urea nitrogen [Mass/Vol] 9 mg/dL Normal 7-21 [facility] Comment on above: Order Comment: Speci men Type: BLOOD SPECIMENOrdering Facility: [facility] Address: [address] [place] [address] Performed By: #### 4 4982, 1987-08, , 4484-12 ####[facility] LABCLIA [id number] [address] [address] [place] C3 SerPl-mCncon 10-01-2024 Complement C3 [Mass/Vol] 88 mg/dL Normal 86-166 [facility] Comment on above: Order Comment: Speci men Type: BLOOD SPECIMENOrdering Facility: [facility] Address: [address] [place] [id number] Performed By: #### 4 498-2, 1987-08, , 9 ####[facility] LABCLIA [id number] [place] [id number] [place] C4 SerPl-mCncon 10-01-2024 Complement C4 [Mass/Vol] 11 mg/dL Low 13-46 [facility] Comment on above: Order Comment: Speci men Type: BLOOD SPECIMENOrdering Facility: [facility] Address: [facility] [address] [place] [id number] Performed By: #### 4 498-2, 1987-08, , 9 ####[facility] LABCLIA [id number] [place] [address] [place] CBC W Auto Differential pane l (Bld)on 10-01-2024 Basophils (Bld) [#/Vol] 10*3/uL Normal <0.11 [facility] Comment on above: Order Comment: Speci men Type: BLOOD SPECIMEN Ordering Facility: [facility] Address: [address] , [place] [id number] Performed By: #### 1 920-8, 02584-3, 1742-6 #### [facility] [id number] [address] [place], [place] [address] [place] Basophils/100 WBC (Bld) 0.5 % Normal [facility] Comment on above: Order Comment: Speci men Type: BLOOD SPECIMEN Ordering Facility: [facility] Address: [address] , [place] [id number] Performed By: #### 1 920-8, 12846-5, 6 #### [facility] CLIA [id number] [address] [place] [address] [place] Differential cell count method Nom (Bld) Auto Normal [facility] Comment on above: Order Comment: Speci men Type: BLOOD SPECIMEN Ordering Facility: [facility] Address: [address] [place] [address] Performed By: #### 1 920-8, 31165-0, 1741-6 #### [facility] CLIA [id number] [address] [place] [address] [place] Eosinophils (Bld) [#/Vol] 0.20 10*3/uL Normal <0.46 [facility] Comment on above: Order Comment: Speci men Type: BLOOD SPECIMEN Ordering Facility: [facility] Address: [address] [place] [address] Performed By: #### 1 920-8, 07544-1, 1741-09 #### [facility] CLIA [id number] [address] [place] [address] [place] Eosinophils/100 WBC (Bld) 4.8 % Normal [facility] Comment on above: Order Comment: Speci men Type: BLOOD SPECIMEN Ordering Facility: [facility] Address: [address] [place] [address] Performed By: #### 1 920-8, 51924-8, 6 #### [facility] CLIA [id number] [address] [place] [address] [place] Erythrocyte distribution width (RBC) [Ratio] 13.3 % Normal 11.5-15.0 [facility] Comment on above: Order Comment: Speci men Type: BLOOD SPECIMEN Ordering Facility: [facility] Address: [address] [place] [address] Performed By: #### 1 920-8, 99786-1, 1741-6 #### [facility] CLIA [id number] [address] [place] [address] [place] Hematocrit (Bld) [Volume fraction] 36.9 % Normal 36.0-46.0 [facility] Comment on above: Order Comment: Speci men Type: BLOOD SPECIMEN Ordering Facility: [facility] Address: [address] [place], [place] [address] [address] Performed By: #### 1 920-8, 41685-7, 174-6 #### [facility] CLIA [id number] [address] [place] [address] [place] Hemoglobin (Bld) [Mass/Vol] 11.7 g/dL Normal 11.5-15.5 [facility] Comment on above: Order Comment: Speci men Type: BLOOD SPECIMEN Ordering Facility: [facility] Address: [facility] [place] [address] Performed By: #### 1 920-8, 06976-0, 6 #### [facility] CLIA [id number] [address] [place] [address] [place] Immature granulocytes (Bld) [#/Vol] 10*3/uL Normal <0.10 [facility] Comment on above: Order Comment: Speci men Type: BLOOD SPECIMEN Ordering Facility: [facility] Address: [facility] [place] [address] Performed By: #### 1 920-8, 49821-8, 6 #### [facility] CLIA [id number] [address] [place] [address] [place] Immature granulocytes/100 WBC (Bld) 0.2 % Normal [facility] Comment on above: Order Comment: Speci men Type: BLOOD SPECIMEN Ordering Facility: [facility] Address: [facility] [place] [address] Performed By: #### 1 920-8, 44659-9, 174-6 #### [facility] CLIA [id number] [address] [place] [address] [place] Lymphocytes (Bld) [#/Vol] 1.10 10*3/uL Normal 1.00-4.00 [facility] Comment on above: Order Comment: Speci men Type: BLOOD SPECIMEN Ordering Facility: [facility] Address: [facility] [place] [address] Performed By: #### 1 920-8, 84282-9, 174-6 #### [facility] CLIA [id number] [address] [place] [address] [place] Lymphocytes/100 WBC (Bld) 26.2 % Normal [facility] Comment on above: Order Comment: Speci men Type: BLOOD SPECIMEN Ordering Facility: [facility] Address: [facility] [place] [address] Performed By: #### 1 920-8, 18317-9, 1741-6 #### [facility] CLIA [id number] [address] [place] [address] [place] MCH (RBC) [Entitic mass] 26.7 pg Normal 26.0-34.0 [facility] Comment on above: Order Comment: Speci men Type: BLOOD SPECIMEN Ordering Facility: [facility] Address: [facility] [place] [address] Performed By: #### 1 920-8, 70800-2, 1746 #### [facility] CLIA [id number] [address] [place] [address] [place] MCHC (RBC) [Mass/Vol] 31.7 g/dL Normal 30.5-36.0 [facility] Comment on above: Order Comment: Speci men Type: BLOOD SPECIMEN Ordering Facility: [facility] Address: [facility] [place] [address] Performed By: #### 1 920-8, 91779-3, 174-6 #### [facility] CLIA [id number] [address] [place] [address] [place] MCV (RBC) [Entitic vol] 84.1 fL Normal 80.0-100.0 [facility] Comment on above: Order Comment: Speci men Type: BLOOD SPECIMEN Ordering Facility: [facility] Address: [address] [place] [address] Performed By: #### 1 920-8, 34288-4, 174-6 #### [facility] CLIA [id number] [address] [place] [address] [place] Monocytes (Bld) [#/Vol] 0.39 10*3/uL Normal <0.87 [facility] Comment on above: Order Comment: Speci men Type: BLOOD SPECIMEN Ordering Facility: [facility] Address: [address] [place] [address] Performed By: #### 1 920-8, 31483-6, 1741-6 #### [facility] CLIA [id number] [address] [place] [address] [place] Monocytes/100 WBC (Bld) 9.3 % Normal [facility] Comment on above: Order Comment: Speci men Type: BLOOD SPECIMEN Ordering Facility: [facility] Address: [address] [place] [address] Performed By: #### 1 920-8, 89451-0, 1741-6 #### [facility] CLIA [id number] [address] [place] [address] [place] Neutrophils (Bld) [#/Vol] 2.48 10*3/uL Normal 1.45-7.50 [facility] Comment on above: Order Comment: Speci men Type: BLOOD SPECIMEN Ordering Facility: [facility] Address: [address] [place] [address] Performed By: #### 1 920-8, 11650-0, 174-6 #### [facility] CLIA [id number] [address] [place] [address] [place] Neutrophils/100 WBC (Bld) 59.0 % Normal [facility] Comment on above: Order Comment: Luis A weathers Type: BLOOD SPECIMEN Ordering Facility: [facility] Address: [facility] [place] [address] Performed By: #### 1 920-8, 71500-7, 174-6 #### [facility] CLIA [id number] [address] [place] [address] [place] Nucleated RBC (Bld) [#/Vol] 10*3/uL Normal <0.01 [facility] Comment on above: Order Comment: Luis A weathers Type: BLOOD SPECIMEN Ordering Facility: [facility] Address: [facility] [place] [address] Performed By: #### 1 920-8, 89461-6, 1741-6 #### [facility] CLIA [id number] [address] [place] [address] [place] Nucleated RBC/100 WBC (Bld) [Ratio] 0.0 /100 WBC Normal [facility] Comment on above: Order Comment: Luis A weathers Type: BLOOD SPECIMEN Ordering Facility: [facility] Address: [facility] [place] [address] Performed By: #### 1 920-8, 61667-4, 1741-6 #### [facility] CLIA [id number] [address] [place] [address] [place] Platelet mean volume (Bld) [Entitic vol] 11.4 fL Normal 9.0-12.7 [facility] Comment on above: Order Comment: Luis A weathers Type: BLOOD SPECIMEN Ordering Facility: [facility] Address: [facility] [place] [address] Performed By: #### 1 920-8, 55403-4, 1741-6 #### [facility] CLIA [id number] [address] [place] [address] [place] Platelets (Bld) [#/Vol] 201 10*3/uL Normal 150-400 [facility] Comment on above: Order Comment: Luis A weathers Type: BLOOD SPECIMEN Ordering Facility: [facility] Address: [address] [place] [address] Performed By: #### 1 920-8, 60553-5, 1742-6 #### [facility] CLIA [id number] [address] [place] [address] [place] RBC (Bld) [#/Vol] 4.39 10*6/uL Normal 3.90-5.20 [facility] Comment on above: Order Comment: Luis A weathers Type: BLOOD SPECIMEN Ordering Facility: [facility] Address: [address] [place] [address] Performed By: #### 1 920-8, 40751-0, 174-6 #### [facility] CLIA [id number] [address] [place] [address] [place] WBC (Bld) [#/Vol] 4.20 10*3/uL Normal 3.70-11.00 [facility] Comment on above: Order Comment: Luis A weathers Type: BLOOD SPECIMEN Ordering Facility: [facility] Address: [address] [place] [address] Performed By: #### 1 920-8, 89387-0, 174-6 #### [facility] CLIA [id number] [address] [place] [address] [place] [facility] CRP [Mass/Vol] 0.7 mg/dL Normal <0.9 [facility] Comment on above: Order Comment: Luis A weathers Type: BLOOD SPECIMENOrdering Facility: [facility] Address: [address] [place] [address] Performed By: #### 4 498-2, 1988-5, 11411-6, 4485-9 ####[facility] LABCLIA [id number] [place] [address] [place] DNA ANTIBODY DS BLDon 2024 DNA ANTIBODY 816 IU/mL High <=200 [facility] Comment on above: Order Comment: Luis A weathers Type: BLOOD SPECIMEN Ordering Facility: [facility] Address: [address] , [place] [address] Result Comment: Nega tive: <200 IU/mL Equivocal: 201-300 IU/mL Moderate Positive: 301-800 IU/mL Strong Positive: >801 IU/mL Performed By: #### 1 920-8, 31222-1, 1742-6 #### [facility] CLIA [id number] [address] [place] [address] [place] DNA ANTIBODY QUALITATIVE INTERPRETATION Positive Abnormal Negative [facility] Comment on above: Order Comment: Luis A weathers Type: BLOOD SPECIMEN Ordering Facility: [facility] Address: [facility] [place] [address] Performed By: #### 1 920-8, 82846-1, 1742-6 #### [facility] CLIA [id number] [address] [place] [address] [place] ESR Westergren method (Bld) [Velocity]on 10-01-2024 ESR (Bld) [Velocity] 50 mm/h High 0-20 [facility] Comment on above: Order Comment: Luis A weathers Type: BLOOD SPECIMEN Ordering Facility: [facility] Address: [address] [place] [address] Performed By: #### 1 920-8, 92503-8, 1742-6 #### [facility] CLIA [id number] [address] [place] [address] [place] P[facility] Parathyrin.intact [Mass/Vol] 34 pg/mL Normal 15-65 [facility] Comment on above: Order Comment: Luis A weathers Type: BLOOD SPECIMEN Ordering Facility: [facility] Address: [address] [place] [address] Performed By: #### 1 920-8, 52048-3, 1741-6 #### [facility] CLIA [id number] [address] [place] [address] [place] UREA NITROGEN, RANDOM URINEo n 10-01-2024 UREA NITROGEN,UR,RAN 542 mg/dL Normal 140-1500 [facility] Comment on above: Order Comment: Speci men Type: URINE SPECIMENOrdering Facility: [facility] Address: [address] [place] [address] Performed By: #### U UNR ####[facility] LABCLIA [id number] [place] [address] [place] Urinalysis complete panel (U )on 10-01-2024 Bacteria LM.HPF (Urine sed) [#/Area] Negative Normal Negative [facility] Comment on above: Order Comment: Speci men Type: BLOOD SPECIMEN Ordering Facility: [facility] Address: [facility] [place] [address] Performed By: #### 1 920-8, 35472-0, 6 #### [facility] CLIA [id number] [address] [place] [address] [place] Bilirubin Ql (U) Negative Normal Negative [facility] Comment on above: Order Comment: Speci men Type: BLOOD SPECIMEN Ordering Facility: [facility] Address: [address] [place] [address] Performed By: #### 1 920-8, 80782-3, 1741-6 #### [facility] CLIA [id number] [address] [place] [address] [place] Clarity (Unsp spec) Clear Normal Clear [facility] Comment on above: Order Comment: Speci men Type: BLOOD SPECIMEN Ordering Facility: [facility] Address: [address] [place] [address] Performed By: #### 1 920-8, 61233-5, 1741-6 #### [facility] CLIA [id number] [address] [place] [address] [place] Color (U) Yellow Normal Yellow [facility] Comment on above: Order Comment: Speci men Type: BLOOD SPECIMEN Ordering Facility: [facility] Address: [address] [facility] [place] [address] Performed By: #### 1 920-8, 15977-7, 1741-6 #### [facility] CLIA [id number] [address] [place] [address] [place] Epithelial cells LM.HPF (Urine sed) [#/Area] Moderate Normal [facility] Comment on above: Order Comment: Speci men Type: BLOOD SPECIMEN Ordering Facility: [facility] Address: [address] [place] [address] Performed By: #### 1 920-8, 41201-5, 6 #### [facility] CLIA [id number] [address] [place] [address] [place] Glucose Test strip (U) [Mass/Vol] Negative Normal Negative [facility] Comment on above: Order Comment: Speci men Type: BLOOD SPECIMEN Ordering Facility: [facility] Address: [address] [place] [address] Performed By: #### 1 920-8, 94673-7, 6 #### [facility] CLIA [id number] [address] [place], [place] [id number] [place] Hemoglobin Ql (U) Negative Normal Negative [facility] Comment on above: Order Comment: Speci men Type: BLOOD SPECIMEN Ordering Facility: [facility] Address: [address] [place] [address] Performed By: #### 1 920-8, 00548-2, 1741-6 #### [facility] CLIA [id number] [address] [place], [place] [id number] [place] Hyaline casts (Urine sed) [#/Area] 0 /[LPF] Normal 0 /LPF [facility] Comment on above: Order Comment: Speci men Type: BLOOD SPECIMEN Ordering Facility: [facility] Address: [address] [place] [address] Performed By: #### 1 920-8, 79368-6, 1741-6 #### [facility] CLIA [id number] [address] [place] [address] [place] Ketones Ql (U) Negative Normal Negative [facility] Comment on above: Order Comment: Speci men Type: BLOOD SPECIMEN Ordering Facility: [facility] Address: [address] [place] [address] Performed By: #### 1 920-8, 28757-1, 1741-6 #### [facility] CLIA [id number] [address] [place] [address] [place] Leukocyte esterase Test strip Ql (U) 1+ Abnormal Negative [facility] Comment on above: Order Comment: Speci men Type: BLOOD SPECIMEN Ordering Facility: [facility] Address: [facility] [place] [address] Performed By: #### 1 920-8, 52154-7, 1741-6 #### [facility] CLIA [id number] [address] [place] [address] [place] Nitrite Ql (U) Negative Normal Negative [facility] Comment on above: Order Comment: Speci men Type: BLOOD SPECIMEN Ordering Facility: [facility] Address: [facility] [place] [address] Performed By: #### 1 920-8, 21791-7, 1741-6 #### [facility] CLIA [id number] [address] [place] [address] [place] pH (U) 6.5 [pH] Normal <8.5 [facility] Comment on above: Order Comment: Speci men Type: BLOOD SPECIMEN Ordering Facility: [facility] Address: [address] [place] [address] Performed By: #### 1 920-8, 26961-3, 174-6 #### [facility] CLIA [id number] [address] [place] [address] [place] Protein (U) [Mass/Vol] Trace Abnormal Negative [facility] Comment on above: Order Comment: Speci men Type: BLOOD SPECIMEN Ordering Facility: [facility] Address: [address] [place] [address] Performed By: #### 1 920-8, 47955-4, 174-6 #### [facility] CLIA [id number] [address] [place] [address] [place] RBC LM.HPF (Urine sed) [#/Area] 0-2 /HPF Normal 0-2 /HPF [facility] Comment on above: Order Comment: Speci men Type: BLOOD SPECIMEN Ordering Facility: [facility] Address: [address] [place] [address] Performed By: #### 1 920-8, 75129-4, 174-6 #### [facility] CLIA [id number] [address] [place] [address] [place] Specific gravity (U) [Rel density] 1.019 Normal 1.005-1.030 [facility] Comment on above: Order Comment: Speci men Type: BLOOD SPECIMEN Ordering Facility: [facility] Address: [address] [place] [address] Performed By: #### 1 920-8, 08187-0, 174-6 #### [facility] CLIA [id number] [address] [place] [address] [place] Urobilinogen Ql (U) 0.2 EU/dL Normal 0.2-1.0 EU/dL [facility] Comment on above: Order Comment: Speci men Type: BLOOD SPECIMEN Ordering Facility: [facility] Address: [address] , [place] [address] Performed By: #### 1 920-8, 67770-8, 174-6 #### [facility] CLIA [id number] [address] [place] [address] [place] WBC LM.HPF (Urine sed) [#/Area] 0-5 /HPF Normal 0-5 /HPF [facility] Comment on above: Order Comment: Luis A weathers Type: BLOOD SPECIMEN Ordering Facility: [facility] Address: [address] , [place] [address] Performed By: #### 1 920-8, 28874-3, 174-6 #### [facility] CLIA [id number] [address] [place] [address] [place] CNPAngela 09-24-2024 HARJINDERN Telephone (LANI) -------- TAMY VAZQUEZ ([id number]) 1980 F Date Time Provider Department 09/24/24 ZAKI KEENAN During your visit today, we recorded the following information about you: Savannah Pleitez 09/24/2024 10:36 AM Signed Patient called to have Reclast scheduled. States Dr. Rodrigues ordering. Please review and advise. Serina Parra 09/24/2024 3:35 PM Signed Tried to call pt 2x to schedule but its all static. Serina Redmond 09/25/2024 2:25 PM Signed Spoke w pt and she is scheduled. Serina Redmond 09/27/2024 10:21 AM Signed Lvm for pt to call back and reschedule tx for 11/16 or after. Anna Best 09/29/2024 10:31 AM Addendum [facility] for patient to return the call. Rescheduled appointment to 11/19. Verify date and time work for patient. Anna Kincaid Allergies As of Date: 09/24/2024 Noted Allergy Reaction AMERIGEL (ZINC ACETATE) 08/30/2006 Comments: Daniel burning at area CEFDINIR 06/04/2020 14 - Other: See Comments Comments: Dizzy FLAGYL (METRONIDAZOLE) 01/17/2008 5 - Intolerance 8 - GI Upset Comments: Nausea, fatigue, poor appetite Date Reviewed: 03/29/2024 Reviewed by: Colleen Asif LPN - Fully Assessed Reason for Visit: Appointment [186] Prescriptions as of 09/29/2024 - mycophenolate sodium DR (MYFORTIC) 180 mg EC tablet Take 4 tablets by mouth two times a day. One AM 3 PM - budesonide-formoterol (SYMBICORT) 160-4.5 mcg/actuation inhaler inhale 2 puffs by mouth twice a day - RINSE MOUTH WITH WATER AFT... (REFER TO PRESCRIPTION NOTES). - mycophenolate sodium DR (MYFORTIC) 360 mg TbEC Take 1 tablet by mouth once daily. - DHEA vaginal suppository 13 mg (CPD) Unwrap and insert 1 suppository vaginally at bedtime. Refrigerate remainder of package. - Cholecalciferol, Vitamin D3, (VITAMIN D) 25 mcg (1,000 unit) cap Take 2 capsules by mouth once daily. - ketoconazole (NIZORAL) 2 % shampoo Ketoconazole 2 % External Shampoo WASH THE SCALP DAILY - LATHER - LEAVE ON FOR 3-5 MINUTES, THEN RINSE Quantity: 120 Refills: 0 Ordered: 29-Jul-2020 DO Start : 14-Jan-2020 Complete - Spirometers and Accessories gary 1 Device four times daily. - warfarin (COUMADIN) 2 mg tablet Take 1.5 tablets by mouth daily as directed. - montelukast (SINGULAIR) 10 mg tablet Take 10 mg by mouth daily at bedtime. - fexofenadine HCl (ERNESTINE ORAL) Take by mouth as needed. - Doxycycline Monohydrate 40 mg capsule Take 40 mg by mouth once daily. - hydrOXYchloroQUINE (PLAQUENIL) 200 mg tablet Take 200 mg by mouth once daily. Meds Comments as of 12/09/2010: 12/09/10 Procardia on hold. She takes this during the winter months. She will increase coumadin to 3 mg and 2 mg other days. Problem List As Of Date 09/24/2024 Noted Resolved ABNORMAL THYROID FUNCT STUDY [R94.6] 05/29/2004 Blood clotting disorder (HCC) [D68.9] 06/11/2005 ANEMIA NOS [D64.9] 06/11/2005 PHLEBITIS INTRCRAN SINUS [G08] 06/11/2005 JOINT PAIN-HAND [M25.549] 04/12/2006 OPEN WOUND FINGER-COMPL [S61.209A] 04/12/2006 ONYCHIA OF TOE [L03.039] 08/16/2006 Phlebitis and thrombophlebitis of other site [I*05/12/2007 08/12/2022 Raynaud's syndrome [I73.00] 07/08/2022 Dermatophytosis of nail [B35.1] 06/15/2007 CERVICALGIA [M54.2] 11/09/2007 Monoclonal paraproteinemia [D47.2] 05/16/2008 04/07/2010 Asthma [J45.909] 06/12/2009 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] 06/12/2009 MCTD (mixed connective tissue disease) [M35.1] 06/29/2010 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/2010 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] 10/23/2010 Chronic anticoagulation [Z79.01] 10/23/2010 Iron deficiency anemia, unspecified [D50.9] 09/18/2012 Menorrhagia [N92.0] 10/09/2012 Pelvic pain in female [R10.2] 04/25/2013 12/29/2017 Hypercalcemia [E83.52] 04/25/2013 Osteoporosis without current pathological fract*05/29/2013 Hyperparathyroid (HCC) [E21.3] 05/29/2013 Rib fracture [S22.39XA] 06/19/2014 Nasal crusting [J34.89] 06/19/2014 Acute deep vein thrombosis (DVT) of upper extre*04/30/2015 Metrorrhagia [N92.1] 02/08/2018 08/12/2022 Pelvic pain in female [R10.2] 02/08/2018 Abdominal bloating [R14.0] 02/08/2018 Uterine polyp-removed [N84.0] 02/08/2018 POI vs early menopause [E28.39] 07/18/2019 Hx of cerebral venous sinus thrombosis time of *07/18/2019 Abnormal PFTs [R94.2] 07/09/2020 ILD (interstitial lung disease) (HCC) [J84.9] 07/09/2020 Encounter for screening mammogram for malignant*06/15/2022 hx of low vitamin D [E55.9] 06/16/2022 History of parathyroid surgery [Z98.890] 06/16/2022 Acne cystica [L70.0] 07/08/2022 Secondary hypercoagulable state (HCC) [D68.69] 06/11/2005 Rosacea [L71.9] 07/08/2022 Nephrolithiasis [N20.0] 08/12/2022 POI versus perimenopause age 39 s/p uterine art*08/12/2022 GSM [N95.8] 08/12/2022 HSDD-aquired [F52.0] 08/12/2022 History of DVT (deep vein thrombosis) [Z86.7 (more content not included)... Normal [facility] ALT SerPl-cCncon 08-20-2024 ALT [Catalytic activity/Vol] 12 U/L Normal 7-38 [facility] Comment on above: Order Comment: Speci men Type: BLOOD SPECIMEN Ordering Facility: [facility] Address: [facility] [address] [place] [address] Performed By: #### 1 920-8, 77048-0, 1742-6 #### [facility] CLIA [id number] [address] [place] [address] [place] AST SerPl-cCncon 08-20-2024 AST [Catalytic activity/Vol] 17 U/L Normal 13-35 [facility] Comment on above: Order Comment: Speci men Type: BLOOD SPECIMEN Ordering Facility: [facility] Address: [address] [place] [id number] Performed By: #### 1 920-8, 12798-7, 1742-6 #### [facility] CLIA [id number] [address] [place] [address] [place] C3 SerPl-mCncon 08-20-2024 Complement C3 [Mass/Vol] 97 mg/dL Normal 86-166 [facility] Comment on above: Order Comment: Speci men Type: BLOOD SPECIMEN Ordering Facility: [facility] Address: [address] [place] [id number] Performed By: #### 1 920-8, 23446-9, 174-6 #### [facility] CLIA [id number] [address] [place] [address] [place] C4 SerPl-mCncon 08-20-2024 Complement C4 [Mass/Vol] 14 mg/dL Normal 13-46 [facility] Comment on above: Order Comment: Speci men Type: BLOOD SPECIMEN Ordering Facility: [facility] Address: [address] [place] [address] Performed By: #### 1 920-8, 78835-7, 174-6 #### [facility] CLIA [id number] [address] [place] [address] [place] CBC W Auto Differential pane l (Bld)on 08-20-2024 Basophils (Bld) [#/Vol] 10*3/uL Normal <0.11 [facility] Comment on above: Order Comment: Speci men Type: BLOOD SPECIMENOrdering Facility: [facility] Address: [address] [place] [address] Performed By: #### 5 7021-8 ####[facility]TON[facility] [id number] [place] [address] [place] Basophils/100 WBC (Bld) 0.4 % Normal [facility] Comment on above: Order Comment: Speci men Type: BLOOD SPECIMENOrdering Facility: [facility] Address: [address] [place] [address] Performed By: #### 5 7021-8 ####[facility] BRENNONFERMINWTAMLIA [id number] [place] [address] [place] Differential cell count method Nom (Bld) Auto Normal [facility] Comment on above: Order Comment: Speci men Type: BLOOD SPECIMENOrdering Facility: [facility] Address: [address] [place], [place] [address] [place] [address] Performed By: #### 5 7021-8 ####[facility] HOSPITALFABYLIA [id number] [place] [address] [place] Eosinophils (Bld) [#/Vol] 0.13 10*3/uL Normal <0.46 [facility] Comment on above: Order Comment: Speci men Type: BLOOD SPECIMENOrdering Facility: [facility] Address: [address] [place] [address] Performed By: #### 5 7021-8 ####[facility] CENTERWTAMLIA [id number] [place] [address] [place] Eosinophils/100 WBC (Bld) 2.5 % Normal [facility] Comment on above: Order Comment: Dennysi men Type: BLOOD SPECIMENOrdering Facility: [facility] Address: [address] [place] [address] Performed By: #### 5 7021-8 ####[facility] BRENONNWNCLIA [id number] [place] [address] [place] Erythrocyte distribution width (RBC) [Ratio] 13.6 % Normal 11.5-15.0 [facility] Comment on above: Order Comment: Dennysi men Type: BLOOD SPECIMENOrdering Facility: [facility] Address: [address] [place], [place] [address] [place] [address] Performed By: #### 5 7021-8 ####[facility]ITAL[facility]CL[facility] [id number] [place] [address] [place] Hematocrit (Bld) [Volume fraction] 36.9 % Normal 36.0-46.0 [facility] Comment on above: Order Comment: Speci men Type: BLOOD SPECIMENOrdering Facility: [facility] Address: [address] [place] [address] Performed By: #### 5 7021-8 ####[facility] BRENNONWNCLIA [id number] [place] [address] [place] Hemoglobin (Bld) [Mass/Vol] 11.6 g/dL Normal 11.5-15.5 [facility] Comment on above: Order Comment: Speci men Type: BLOOD SPECIMENOrdering Facility: [facility] Address: [address] [place] [address] Performed By: #### 5 7021-8 ####[facility]ITAL[facility]CL[facility] [id number] [place] [address] [place] Immature granulocytes (Bld) [#/Vol] 10*3/uL Normal <0.10 [facility] Comment on above: Order Comment: Speci men Type: BLOOD SPECIMENOrdering Facility: [facility] Address: [address] [place] [address] Performed By: #### 5 7021-8 ####[facility] CENTERWNCLIA [id number] [place] [address] [place] Immature granulocytes/100 WBC (Bld) 0.4 % Normal [facility] Comment on above: Order Comment: Speci men Type: BLOOD SPECIMENOrdering Facility: [facility] Address: [address] [place] [address] Performed By: #### 5 7021-8 ####[facility]CL[facility] [id number] [place] [address] [place] Lymphocytes (Bld) [#/Vol] 1.20 10*3/uL Normal 1.00-4.00 [facility] Comment on above: Order Comment: Luis A weathers Type: BLOOD SPECIMENOrdering Facility: [facility] Address: [facility] [place] [address] Performed By: #### 5 7021-8 ####[facility] [id number] [place] [address] [place] Lymphocytes/100 WBC (Bld) 22.9 % Normal [facility] Comment on above: Order Comment: Dennysi jasiel Type: BLOOD SPECIMENOrdering Facility: [facility] Address: [address] [place], [place] [address] [address] Performed By: #### 5 7021-8 ####[facility] [id number] [place] [address] [place] MCH (RBC) [Entitic mass] 27.0 pg Normal 26.0-34.0 [facility] Comment on above: Order Comment: Luis A weathers Type: BLOOD SPECIMENOrdering Facility: [facility] Address: [facility] [place] [address] Performed By: #### 5 7021-8 ####[facility] [id number] [place] [address] [place] MCHC (RBC) [Mass/Vol] 31.4 g/dL Normal 30.5-36.0 [facility] Comment on above: Order Comment: Dennysi jasiel Type: BLOOD SPECIMENOrdering Facility: [facility] Address: [address] [place] [address] Performed By: #### 5 7021-8 ####[facility] [id number] [place] [address] [place] MCV (RBC) [Entitic vol] 86.0 fL Normal 80.0-100.0 [facility] Comment on above: Order Comment: Dennysi men Type: BLOOD SPECIMENOrdering Facility: [facility] Address: [address] [place] [address] Performed By: #### 5 7021-8 ####[facility] MILLTOWNCLIA [id number] [place] [address] [place] Monocytes (Bld) [#/Vol] 0.49 10*3/uL Normal <0.87 [facility] Comment on above: Order Comment: Speci men Type: BLOOD SPECIMENOrdering Facility: [facility] Address: [address] [place] [address] Performed By: #### 5 7021-8 ####[facility] MILLTOWNCLIA [id number] [place] [address] [place] Monocytes/100 WBC (Bld) 9.4 % Normal [facility] Comment on above: Order Comment: Dennysi jasiel Type: BLOOD SPECIMENOrdering Facility: [facility] Address: [address] [place] [address] Performed By: #### 5 7021-8 ####[facility] MILLTOWNCLIA [id number] [place] [address] [place] Neutrophils (Bld) [#/Vol] 3.38 10*3/uL Normal 1.45-7.50 [facility] Comment on above: Order Comment: Speci men Type: BLOOD SPECIMENOrdering Facility: [facility] Address: [address] [place] [address] Performed By: #### 5 7021-8 ####[facility] MILLTOWNCLIA [id number] [place] [address] [place] Neutrophils/100 WBC (Bld) 64.4 % Normal [facility] Comment on above: Order Comment: Dennysi men Type: BLOOD SPECIMENOrdering Facility: [facility] Address: [address] [place] [address] Performed By: #### 5 7021-8 ####[facility] MILLTOWNCLIA [id number] [place] [address] [place] Nucleated RBC (Bld) [#/Vol] 10*3/uL Normal <0.01 [facility] Comment on above: Order Comment: Speci men Type: BLOOD SPECIMENOrdering Facility: [facility] Address: [address] [place] [address] Performed By: #### 5 7021-8 ####[facility] BRENNONWNCLIA [id number] [place] [address] [place] Nucleated RBC/100 WBC (Bld) [Ratio] 0.0 /100 WBC Normal [facility] Comment on above: Order Comment: Dennysi jasiel Type: BLOOD SPECIMENOrdering Facility: [facility] Address: [address] [place] [address] Performed By: #### 5 7021-8 ####[facility]ITALTAMLIA [id number] [place] [address] [place] Platelet mean volume (Bld) [Entitic vol] 9.9 fL Normal 9.0-12.7 [facility] Comment on above: Order Comment: Luis A weathers Type: BLOOD SPECIMENOrdering Facility: [facility] Address: [address] [place] [address] Performed By: #### 5 7021-8 ####[facility] CENTERWTAMLIA [id number] [place] [address] [place] Platelets (Bld) [#/Vol] 232 10*3/uL Normal 150-400 [facility] Comment on above: Order Comment: Dennysi jasiel Type: BLOOD SPECIMENOrdering Facility: [facility] Address: [address] [place] [address] Performed By: #### 5 7021-8 ####[facility]ENTERWNCLIA [id number] [place] [address] [place] RBC (Bld) [#/Vol] 4.29 10*6/uL Normal 3.90-5.20 [facility] Comment on above: Order Comment: Luis A weathers Type: BLOOD SPECIMENOrdering Facility: [facility] Address: [facility] [place] [address] Performed By: #### 5 7021-8 ####[facility] [id number] [place] [address] [place] WBC (Bld) [#/Vol] 5.24 10*3/uL Normal 3.70-11.00 [facility] Comment on above: Order Comment: Dennysi jasiel Type: BLOOD SPECIMENOrdering Facility: [facility] Address: [facility] [place] [address] Performed By: #### 5 7021-8 ####[facility] [id number] [place] [address] [place] CRP SerPl-mCncon 08-20-2024 CRP [Mass/Vol] 0.5 mg/dL Normal <0.9 [facility] Comment on above: Order Comment: Luis A weathers Type: BLOOD SPECIMENOrdering Facility: [facility] Address: [facility] [place] [address] Performed By: #### 4 485-9, 4498-2, 1988- ####[facility] LABCLIA [id number] [place] [address] [place] Creatinine + eGFR Pnl SerPlB ldon 08-20-2024 Creatinine and Glomerular filtration rate.predicted panel (S/P/Bld) 111 mL/min/1.73m??? Normal >=60 [facility] Comment on above: Order Comment: Luis A weathers Type: BLOOD SPECIMEN Ordering Facility: [facility] Address: [facility] [place] [address] Result Comment: Yvonne mated Glomerular Filtration Rate (eGFR) is calculated using the 2020 CKD-EPI creatinine equation. This equation utilizes serum creatinine, sex, and age as parameters. The creatinine assay has traceable calibration to isotope dilution-mass spectrometry. Refer to KDIGO guidelines for clinical interpretation. In patients with unstable renal function, e.g. those with acute kidney injury, the eGFR may not accurately reflect actual GFR. Performed By: #### 1 920-8, 25087-5, 174-6 #### [facility] CLIA [id number] [address] [place] [address] [place] Creatinine and Glomerular fi ltration rate.predicted panel (S/P/Bld)on 08-20-2024 Creatinine [Mass/Vol] 0.65 mg/dL Normal 0.58-0.96 [facility] Comment on above: Order Comment: Luis A weathers Type: BLOOD SPECIMEN Ordering Facility: [facility] Address: [facility] [place] [address] Performed By: #### 1 920-8, 90889-2, 1746 #### [facility] CLIA [id number] [address] [place] [address] [place] DNA ANTIBODY DS BLDon 2024 DNA ANTIBODY 753 IU/mL High <=200 [facility] Comment on above: Order Comment: Luis A weathers Type: BLOOD SPECIMENOrdering Facility: [facility] Address: [facility] [place] [address] Result Comment: Nega tive: <200 IU/mL Equivocal: 201-300 IU/mL Moderate Positive: 301-800 IU/mL Strong Positive: >801 IU/mL Performed By: #### D NAAB ####[facility] LABCLIA [id number] [place] [address] [place] DNA ANTIBODY QUALITATIVE INTERPRETATION Positive Abnormal Negative [facility] Comment on above: Order Comment: Luis A weathers Type: BLOOD SPECIMENOrdering Facility: [facility] Address: [facility] [place] [address] Performed By: #### D NAAB ####[facility] LABCLIA [id number] [address] [address] [place] UREA NITROGEN, RANDOM URINEo n 08-20-2024 UREA NITROGEN,UR,RAN 599 mg/dL Normal 140-1500 [facility] Comment on above: Order Comment: Speci men Type: BLOOD SPECIMEN Ordering Facility: [facility] Address: [address] [place] [address] Performed By: #### 1 920-8, 67370-5, 1742-6 #### [facility] CLIA [id number] [address] [place] [address] [place] Urinalysis complete panel (U )on 08-20-2024 Bacteria LM.HPF (Urine sed) [#/Area] Negative Normal Negative [facility] Comment on above: Order Comment: Dennysi men Type: BLOOD SPECIMEN Ordering Facility: [facility] Address: [facility] [place] [address] Performed By: #### 1 920-8, 37281-7, 1741-6 #### [facility] CLIA [id number] [address] [place] [address] [place] Bilirubin Ql (U) Negative Normal Negative [facility] Comment on above: Order Comment: Speci men Type: BLOOD SPECIMEN Ordering Facility: [facility] Address: [facility] [place] [address] Performed By: #### 1 920-8, 46542-2, 1741-6 #### [facility] CLIA [id number] [address] [place] [address] [place] Clarity (Unsp spec) Clear Normal Clear [facility] Comment on above: Order Comment: Speci men Type: BLOOD SPECIMEN Ordering Facility: [facility] Address: [facility] [place] [address] Performed By: #### 1 920-8, 22279-6, 1742-6 #### [facility] CLIA [id number] [address] [place] [address] [place] Color (U) Yellow Normal Yellow [facility] Comment on above: Order Comment: Speci men Type: BLOOD SPECIMEN Ordering Facility: [facility] Address: [address] [place] [address] Performed By: #### 1 920-8, 76755-8, 6 #### [facility] CLIA [id number] [address] [place] [address] [place] Epithelial cells LM.HPF (Urine sed) [#/Area] None Seen Normal [facility] Comment on above: Order Comment: Speci men Type: BLOOD SPECIMEN Ordering Facility: [facility] Address: [facility] [place] [address] Performed By: #### 1 920-8, 30218-1, 1741-09 #### [facility] CLIA [id number] [address] [place] [address] [place] Glucose Test strip (U) [Mass/Vol] Negative Normal Negative [facility] Comment on above: Order Comment: Speci men Type: BLOOD SPECIMEN Ordering Facility: [facility] Address: [facility] [place] [address] Performed By: #### 1 920-8, 13565-3, 1741-09 #### [facility] CLIA [id number] [address] [place] [address] [place] Hemoglobin Ql (U) Negative Normal Negative [facility] Comment on above: Order Comment: Speci men Type: BLOOD SPECIMEN Ordering Facility: [facility] Address: [address] [place] [address] Performed By: #### 1 920-8, 40263-5, 6 #### [facility] CLIA [id number] [address] [place] [address] [place] Hyaline casts (Urine sed) [#/Area] 0 /[LPF] Normal 0 /LPF [facility] Comment on above: Order Comment: Speci men Type: BLOOD SPECIMEN Ordering Facility: [facility] Address: [address], [place] [id number] Performed By: #### 1 920-8, 14749-5, 1741-6 #### [facility] CLIA [id number] [address] [place] [address] [place] Ketones Ql (U) Negative Normal Negative [facility] Comment on above: Order Comment: Speci men Type: BLOOD SPECIMEN Ordering Facility: [facility] Address: [address], [place] [id number] Performed By: #### 1 920-8, 66876-6, 1741-6 #### [facility] CLIA [id number] [address] [place] [address] [place] Leukocyte esterase Test strip Ql (U) 1+ Abnormal Negative [facility] Comment on above: Order Comment: Speci men Type: BLOOD SPECIMEN Ordering Facility: [facility] Address: [address] [place] [address] Performed By: #### 1 920-8, 37030-7, 1741-6 #### [facility] CLIA [id number] [address] [place] [address] [place] Nitrite Ql (U) Negative Normal Negative [facility] Comment on above: Order Comment: Speci men Type: BLOOD SPECIMEN Ordering Facility: [facility] Address: [address], [place] [address] Performed By: #### 1 920-8, 41657-9, 1741-6 #### [facility] CLIA [id number] [address] [place] [address] [place] pH (U) 6.0 [pH] Normal <8.5 [facility] Comment on above: Order Comment: Speci men Type: BLOOD SPECIMEN Ordering Facility: [facility] Address: [address], [place] [address] Performed By: #### 1 920-8, 63141-5, 1741-6 #### [facility] CLIA [id number] [address] [place] [address] [place] Protein (U) [Mass/Vol] Negative Normal Negative [facility] Comment on above: Order Comment: Speci men Type: BLOOD SPECIMEN Ordering Facility: [facility] Address: [address] [place] [address] Performed By: #### 1 920-8, 30729-2, 174-6 #### [facility] CLIA [id number] [address] [place] [address] [place] RBC LM.HPF (Urine sed) [#/Area] 0-2 /HPF Normal 0-2 /HPF [facility] Comment on above: Order Comment: Speci men Type: BLOOD SPECIMEN Ordering Facility: [facility] Address: [address] [place] [address] Performed By: #### 1 920-8, 46179-2, 174-6 #### [facility] CLIA [id number] [address] [place] [address] [place] Specific gravity (U) [Rel density] 1.017 Normal 1.005-1.030 [facility] Comment on above: Order Comment: Speci men Type: BLOOD SPECIMEN Ordering Facility: [facility] Address: [facility] [place] [address] Performed By: #### 1 920-8, 16730-9, 174-6 #### [facility] CLIA [id number] [address] [place] [address] [place] Urobilinogen Ql (U) 0.2 EU/dL Normal 0.2-1.0 EU/dL [facility] Comment on above: Order Comment: Speci men Type: BLOOD SPECIMEN Ordering Facility: [facility] Address: [address] [place] [address] Performed By: #### 1 920-8, 23983-9, 174-6 #### [facility] CLIA [id number] [address] [place] [address] [place] WBC LM.HPF (Urine sed) [#/Area] 0-5 /HPF Normal 0-5 /HPF [facility] Comment on above: Order Comment: Speci men Type: BLOOD SPECIMEN [facility]ing [facility]: [facility] Address[facility] [place] [place] [address] Performed By: #### 1 920-8, 69014-8, 1742-6 #### [facility] CLIA [id number] [address] [place] [id number] [place] CNOVon 07-30-2024 CNOV Office Visit (PULMHI ) -------- TAMY VAZQUEZ ([id number]) 1980 F Date Time Provider Department 07/30/24 3:00 PM ALAN RENE [facility] During your visit today, we recorded the following information about you: Pulse Respiration Blood pressure 85/minute 20/minute 97/67 Alan Rene MD 07/30/2024 4:52 PM [facility] [place] Tamy Vazquez is a 44 year old female here for a follow up with the [facility] Interstitial Lung Disease Team. HISTORY OF PRESENT ILLNESS: Mixed Connective Tissue Disease: - Reports stable lung function. - Recent body aches and congestion; received an antibiotic prescription but has not started it due to concerns about INR fluctuations. - Experiences frequent temperature changes due to biweekly travel to [place]. - Recent episode of chills after a flight, resolved with hydration and Tylenol. - Fully vaccinated for COVID-19. - Overdue for an echocardiogram; last one was in 2021. - Recent mammogram showed dense tissue but was otherwise normal. Wrist Pain: - Pain initiated after a Pilates class. - Massage in [place] provided temporary relief. - Pain recurs if not wearing a brace at night. Mixed Connective Tissue Disease: - Reports stable lung function. - Recent body aches and congestion; received an antibiotic prescription but has not started it due to concerns about INR fluctuations. - Experiences frequent temperature changes due to biweekly travel to [place]. - Recent episode of chills after a flight, resolved with hydration and Tylenol. - Fully vaccinated for COVID-19. - Overdue for an echocardiogram; last one was in 2021. - Recent mammogram showed dense tissue but was otherwise normal. Wrist Pain: - Pain initiated after a Pilates class. - Massage in [place] provided temporary relief. - Pain recurs if not wearing a brace at night. REVIEW OF SYSTEMS: MRC Dyspnea Scale: 1. Not troubled by breathlessness except on strenuous exercise All others per history of present illness or otherwise negative on detailed 14 point review. 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 Endometriosis, site unspecified Endometriosis Esophageal reflux hx of low vitamin D recheck normal Hyperparathyroidism (HCC) 2015 parathyroidectomy Menorrhagia fibroids UFE Nephrolithiasis Osteoporosis 05/2022 with LOSS T-score -3.0 08/2022 nl urine calcium 260 Peripheral vascular disease (HCC) Personal history of unspecified urinary disorder PMH - PAST MEDICAL HISTORY OF 04/18/2005 blood clot internal jugular vein, 4 weeks diagnosed Protein S deficiency (HCC) 05/19/2002 cavernous sinus thrombosis 4 week Raynaud's syndrome CTD plaquenil Rib fracture 06/19/2014 Seasonal allergies Uterine fibroid s/p UFE PAST SURGICAL HISTORY Procedure Laterality Date EMBOLIZATION UTERINE FIBROID 03/18/2013 LAPAROSCOPIC APPENDECTOMY 03/30/2021 LAPS ABD PRTMANDOMENTUM DX W/WO SPEC BR/WA SPX 04/18/2004 Laparoscopy for endometriosis at [place] Dr [place] at [facility], no control afterward, ++relief and + relief with surgery, laser PARATHYROIDECTOMY/EXPLOR ATION PARATHYROIDS 08/05/2014 PT ED ENDOCRINOLOGY 2016 RECLAST INJECTION for 1st one via endo 08/2022 SOCIAL HISTORY: Social History Tobacco Use Smoking status: Never Smokeless tobacco: Never Alcohol Use: Approximately 1.2 oz/week [which includes 2 Glasses of Wine (5oz) per week] (occasional) Drug Use: No FAMILY HISTORY Problem Relation Age of Onset other (hysterectomy) Mother Osteoporosis Mother Asthma Mother Hypertension Father Diabetes Father other (seasonal allergies) Brother No Known Problems Maternal Grandmother No Known Problems Maternal Grandfather No Known Problems Paternal Grandmother Heart Attack Paternal Grandfather ADD/ADHD Son ALLERGIES Allergen Reactions Amerigel [Zinc Acet* Daniel burning at area Cefdinir Other: See Comments Dizzy Flagyl [Metronidazo* Intolerance, GI Upset Nausea, fatigue, poor appetite CURRENT MEDICATIONS budesonide-formoterol (SYMBICORT) 160-4.5 mcg/actuation inhaler inhale 2 puffs by mouth twice a day - RINSE MOUTH WITH WATER AFT... (REFER TO PRESCRIPTION NOTES). mycophenolate sodium DR (MYFORTIC) 360 mg TbEC Take 1 tablet by mouth once daily. DHEA vaginal suppository 13 mg (CPD) Unwrap and insert 1 suppository vaginally at bedtime. Refrigerate remainder of package. Cholecalciferol, Vitamin D3, (VITAMIN D) 25 mcg (1,000 unit) cap Take 2 capsules by mouth once daily. ketoconazole (NIZORAL) 2 % shampoo Ketoconazole 2 % External Shampoo WASH THE SCALP DAILY - LATHER - LEAVE ON FOR 3-5 MINUTES, THEN RINSE Quantity: 120 Refills: 0 Ordered: 29-Jul-2020 DO Start : 14-Jan-2020 Complet (more content not included)... 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 Start of test and EOFE criteria met. Current ATS/ERS acceptability and repeatability standards for DLCO met with 2 acceptable maneuvers. DLCO is hemoglobin corrected. Hemoglobin obtained from [facility] 07/09/24.//KJ IMPRESSION: Spirometry indicates no obstruction. The reduced FVC could indicate restriction, recommend lung volumes for definitive determination. The diffusing capacity (corrected for hemoglobin) is reduced. Electronically Signed On 07-31-2024 15:32:04 EDT by Jus Leigh MD ID: [id number] Name: TAMY VAZQUEZ Race: Other Ht: 63.39 in Wt: 117.95 lbs Age: 44 Gender: Female : 1980 Dx: Idiopathic interstitial pulmonary disease_ Smoking Hx: Non-smoker Doctor: ALAN RENE Test Date: 07/30/2024 Site: [facility] Tech: Zamzam Lyle PRE-BRONCH POST-BRONCH Chang LLN Pred ULN %Pred ZScore Chang %Pred %Chg ZScore SPIROMETRY FVC 1.76 2.48 3.28 4.09 53 -3.18 FEV1 1.42 2.03 2.71 3.35 52 -3.02 FEV1/FVC 0.81 0.71 0.82 0.91 98 -0.20 FEFMax 4.92 5.12 6.80 8.48 72 -1.84 FEF50 1.73 2.06 3.67 5.28 47 -1.98 FIF50 1.85 FEF50/FIF50 0.94 90-100 FIVC 1.69 EAX18-35 1.36 1.65 2.80 4.23 48 -2.14 ExpiredTime 4.35 TimeToFEFMax 0.08 EDE 0.06 VolExtrap% 4 LUNG DIFFUSION DLCOunc 11.46 16.96 23.13 29.29 49 -3.11 DLCOStdPB 11.20 16.96 23.13 29.29 48 -3.18 DLCORefHb 11.20 21.99 50 VA 2.62 3.86 4.96 6.06 52 -3.49 Kco 4.60 3.47 4.41 5.47 104 0.31 Hgb 11.90 12-18 Comments: Current ATS/ERS acceptability and repeatability standards for spirometry met. Start of test and EOFE criteria met. Current ATS/ERS acceptability and repeatability standards for DLCO met with 2 acceptable maneuvers. DLCO is hemoglobin corrected. Hemoglobin obtained from [facility] 07/09/24.//KJ FVC_PRE (L) : 1.76 L FVC_PRED (L) : 3.28 L FVC_LLN (L) : 2.48 L FVC_ULN (L) : 4.09 L FEV1_PRE (L) : 1.42 L FEV1_PRED (L) : 2.71 L FEV1_LLN (L) : 2.03 L FEV1_ULN (L) : 3.35 L FEV1/FVC_PRE (%) : 81 % FEV1/FVC_PRED (%) : 82 % FEV1/FVC_LLN (%) : 71 % LSN65_AWS (L/S) : 4.67 L/S BBH15_WVM (L/S) : 0.50 L/S ZCG80_MPNE (L/S) : 1.04 L/S JPL10_FHZ (L/S) : 0.49 L/S WQF92_KXN (L/S) : 2.00 L/S LWI82-22%_PRE (L/S) : 1.36 L/S NPL14-53%_PRED (L/S) : 2.80 L/S HAK97-06%_LLN (L/S) : 1.65 L/S PEF_PRE (L/S) : 4.92 L/S PEFMAX_LLN (L/S) : 5.12 L/S PEFMAX_ULN (L/S) : 8.48 L/S SVC_PRED (L) : 3.28 L/S SVC_LLN (L) : 2.48 L/S SVC_ULN (L/S) : 4.09 L/S IC_PRED (L) : 2.18 L/S ERV_PREDICTED (L) : 1.09 L/S DLCO (ML/MIN/MMHG) : 11.46 ml/min/mmHg DLCO_PRED (ML/MIN/MMHG) : 23.13 ml/min/mmHg DLCO_LLN(ML/MIN/MMHG) : 16.96 ml/min/mmHg DLCO_ULN (ML/MIN/MMHG) : 29.29 ml/min/mmHg FET_PRE (S) : 4.35 S VA (L) : 2.62 L VA_PRD (L) : 4.96 L DLCO/VA (ML/MIN/MMHG/L) : 0.04 ml/min/mmHg/L DLCO_VA_PRED (L) : 0.05 ml/min/mmHg/L DLCOCOR (ML/MIN/MMHG) : 12.06 ml/min/mmHg DLCOCOR_PRED (ML/MIN/MMHG) : 23.13 ml/min/mmHg DLCO/VACOR (ML/MIN/MMHG/L) : 0.05 ml/min/mmHg/L Normal [facility] SPIROMETRY BASELINE ONLYon 0 07-30-2024 SPIROMETRY BASELINE ONLY [facility] [address] [facility], [place] [address] Test Date: 2024-07-30 Pat Name: TAMY LANERA Department: Room: 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 Start of test and EOFE criteria met. Current ATS/ERS acceptability and repeatability standards for DLCO met with 2 acceptable maneuvers. DLCO is hemoglobin corrected. Hemoglobin obtained from [facility] 07/09/24.//KJ IMPRESSION: Spirometry indicates no obstruction. The reduced FVC could indicate restriction, recommend lung volumes for definitive determination. The diffusing capacity (corrected for hemoglobin) is reduced. Electronically Signed On 07-31-2024 15:32:04 EDT by Jus Leigh MD ID: [id number] Name: VAZQUEZ TAMY P Race: Other Ht: 63.39 in Wt: 117.95 lbs Age: 44 Gender: Female : 1980 Dx: Idiopathic interstitial pulmonary disease_ Smoking Hx: Non-smoker Doctor: ALAN RENE Test Date: 07/30/2024 [place] [facility] Tech: Zamzam Lyle PRE-BRONCH POST-BRONCH Chang LLN Pred ULN %Pred ZScore Chang %Pred %Chg ZScore SPIROMETRY FVC 1.76 2.48 3.28 4.09 53 -3.18 FEV1 1.42 2.03 2.71 3.35 52 -3.02 FEV1/FVC 0.81 0.71 0.82 0.91 98 -0.20 FEFMax 4.92 5.12 6.80 8.48 72 -1.84 FEF50 1.73 2.06 3.67 5.28 47 -1.98 FIF50 1.85 FEF50/FIF50 0.94 90-100 FIVC 1.69 HJJ40-01 1.36 1.65 2.80 4.23 48 -2.14 ExpiredTime 4.35 TimeToFEFMax 0.08 EDE 0.06 VolExtrap% 4 LUNG DIFFUSION DLCOunc 11.46 16.96 23.13 29.29 49 -3.11 DLCOStdPB 11.20 16.96 23.13 29.29 48 -3.18 DLCORefHb 11.20 21.99 50 VA 2.62 3.86 4.96 6.06 52 -3.49 Kco 4.60 3.47 4.41 5.47 104 0.31 Hgb 11.90 12-18 Comments: Current ATS/ERS acceptability and repeatability standards for spirometry met. Start of test and EOFE criteria met. Current ATS/ERS acceptability and repeatability standards for DLCO met with 2 acceptable maneuvers. DLCO is hemoglobin corrected. Hemoglobin obtained from [facility] 07/09/24.//KJ Normal [facility] ALT SerPl-cCncon 07-09-2024 ALT [Catalytic activity/Vol] 16 U/L Normal 7-38 [facility] Comment on above: Order Comment: Speci men Type: BLOOD SPECIMENOrdering Facility: [facility] Address: [facility] [place] [address] Performed By: #### 1 742-6, 1919-11, CRET1 ####[facility] [id number] [place] [address] [place] AST SerPl-cCncon 07-09-2024 AST [Catalytic activity/Vol] 20 U/L Normal 13-35 [facility] Comment on above: Order Comment: Speci men Type: BLOOD SPECIMENOrdering Facility: [facility] Address: [facility] [place] [address] Performed By: #### 1 742-6, 1920-8, CRET1 ####[facility] [id number] [place] [address] [place] C3 SerPl-mCncon 07-09-2024 Complement C3 [Mass/Vol] 97 mg/dL Normal 86-166 [facility] Comment on above: Order Comment: Speci men Type: BLOOD SPECIMEN Ordering Facility: [facility] Address: [facility] [place] [address] Performed By: #### 1 920-8, 39194-9, 1742-6 #### [facility] CLIA [id number] [address] [place] [address] [place] C4 SerPl-mCncon 07-09-2024 Complement C4 [Mass/Vol] 13 mg/dL Normal 13-46 [facility] Comment on above: Order Comment: Speci men Type: BLOOD SPECIMEN Ordering Facility: [facility] Address: [facility] [place] [address] Performed By: #### 1 920-8, 61204-1, 1742-6 #### [facility] CLIA [id number] [address] [place] [address] [place] CBC W Auto Differential pane l (Bld)on 07-09-2024 Basophils (Bld) [#/Vol] 0.05 10*3/uL Normal <0.11 [facility] Comment on above: Order Comment: Speci men Type: BLOOD SPECIMENOrdering Facility: [facility] Address: [facility] [place] [address] Performed By: #### 5 7021-8 ####[facility]ILTONLIA [id number] [place] [address] [place] Basophils/100 WBC (Bld) 0.7 % Normal [facility] Comment on above: Order Comment: Speci men Type: BLOOD SPECIMENOrdering Facility: [facility] Address: [facility] [address] [place] [address] Performed By: #### 5 7021-8 ####[facility] MILLWNCLIA [id number] [place] [address] [place] Differential cell count method Nom (Bld) Auto Normal [facility] Comment on above: Order Comment: Speci men Type: BLOOD SPECIMENOrdering Facility: [facility] Address: [address] [place] [address] Performed By: #### 5 7021-8 ####[facility] CENTERWNCLIA [id number] [place] [address] [place] Eosinophils (Bld) [#/Vol] 0.17 10*3/uL Normal <0.46 [facility] Comment on above: Order Comment: Speci men Type: BLOOD SPECIMENOrdering Facility: [facility] Address: [address] [place] [address] Performed By: #### 5 7021-8 ####[facility]ILTONLIA [id number] [place] [address] [place] Eosinophils/100 WBC (Bld) 2.5 % Normal [facility] Comment on above: Order Comment: Speci men Type: BLOOD SPECIMENOrdering Facility: [facility] Address: [address] [place] [address] Performed By: #### 5 7021-8 ####[facility]ITALTAMLIA [id number] [place] [address] [place] Erythrocyte distribution width (RBC) [Ratio] 13.2 % Normal 11.5-15.0 [facility] Comment on above: Order Comment: Speci men Type: BLOOD SPECIMENOrdering Facility: [facility] Address: [address] [place] [address] Performed By: #### 5 7021-8 ####[facility]ITALNCLIA [id number] [place] [address] [place] Hematocrit (Bld) [Volume fraction] 37.1 % Normal 36.0-46.0 [facility] Comment on above: Order Comment: Speci men Type: BLOOD SPECIMENOrdering Facility: [facility] Address: [facility] [place] [address] Performed By: #### 5 7021-8 ####[facility]ITALNCLIA [id number] [place] [address] [place] Hemoglobin (Bld) [Mass/Vol] 11.9 g/dL Normal 11.5-15.5 [facility] Comment on above: Order Comment: Speci men Type: BLOOD SPECIMENOrdering Facility: [facility] Address: [address] [place], [place] [address] [address] Performed By: #### 5 7021-8 ####[facility]ITALNCLIA [id number] [place] [address] [place] Immature granulocytes (Bld) [#/Vol] 0.04 10*3/uL Normal <0.10 [facility] Comment on above: Order Comment: Speci men Type: BLOOD SPECIMENOrdering Facility: [facility] Address: [facility] [place] [address] Performed By: #### 5 7021-8 ####[facility]ITALNCLIA [id number] [place] [address] [place] Immature granulocytes/100 WBC (Bld) 0.6 % Normal [facility] Comment on above: Order Comment: Speci men Type: BLOOD SPECIMENOrdering Facility: [facility] Address: [facility] [place] [address] Performed By: #### 5 7021-8 ####[facility]ITALNCLIA [id number] [place] [address] [place] Lymphocytes (Bld) [#/Vol] 1.33 10*3/uL Normal 1.00-4.00 [facility] Comment on above: Order Comment: Speci men Type: BLOOD SPECIMENOrdering Facility: [facility] Address: [address] [place] [address] Performed By: #### 5 7021-8 ####[facility]OSPITALMARCO ANTONIO [id number] [place] [address] [place] Lymphocytes/100 WBC (Bld) 19.3 % Normal [facility] Comment on above: Order Comment: Speci men Type: BLOOD SPECIMENOrdering Facility: [facility] Address: [address] [place], [place] [address] [address] Performed By: #### 5 7021-8 ####[facility]TONALLEN [id number] [place] [address] [place] MCH (RBC) [Entitic mass] 27.4 pg Normal 26.0-34.0 [facility] Comment on above: Order Comment: Speci men Type: BLOOD SPECIMENOrdering Facility: [facility] Address: [address] [place], [place] [address] [address] Performed By: #### 5 7021-8 ####[facility] [id number] [place] [address] [place] MCHC (RBC) [Mass/Vol] 32.1 g/dL Normal 30.5-36.0 [facility] Comment on above: Order Comment: Speci men Type: BLOOD SPECIMENOrdering Facility: [facility] Address: [facility] [place] [address] Performed By: #### 5 7021-8 ####[facility]TONLIA [id number] [place] [address] [place] MCV (RBC) [Entitic vol] 85.3 fL Normal 80.0-100.0 [facility] Comment on above: Order Comment: Speci men Type: BLOOD SPECIMENOrdering Facility: [facility] Address: [address] [place], [place] [address] [address] Performed By: #### 5 7021-8 ####[facility] MILLTOWNCLIA [id number] [place] [address] [place] Monocytes (Bld) [#/Vol] 0.50 10*3/uL Normal <0.87 [facility] Comment on above: Order Comment: Speci men Type: BLOOD SPECIMENOrdering Facility: [facility] Address: [address] [place] [address] Performed By: #### 5 7021-8 ####[facility] CENTERWNCLIA [id number] [place] [address] [place] Monocytes/100 WBC (Bld) 7.2 % Normal [facility] Comment on above: Order Comment: Speci men Type: BLOOD SPECIMENOrdering Facility: [facility] Address: [address] [place] [address] Performed By: #### 5 7021-8 ####[facility] CENTERWNCLIA [id number] [place] [address] [place] Neutrophils (Bld) [#/Vol] 4.81 10*3/uL Normal 1.45-7.50 [facility] Comment on above: Order Comment: Speci men Type: BLOOD SPECIMENOrdering Facility: [facility] Address: [address] [place] [address] Performed By: #### 5 7021-8 ####[facility] CENTERWNCLIA [id number] [place] [address] [place] Neutrophils/100 WBC (Bld) 69.7 % Normal [facility] Comment on above: Order Comment: Speci men Type: BLOOD SPECIMENOrdering Facility: [facility] Address: [address] [place] [address] Performed By: #### 5 7021-8 ####[facility]ITALNCLIA [id number] [place] [address] [place] Nucleated RBC (Bld) [#/Vol] 10*3/uL Normal <0.01 [facility] Comment on above: Order Comment: Dennysi jasiel Type: BLOOD SPECIMENOrdering Facility: [facility] Address: [address] [place] [address] Performed By: #### 5 7021-8 ####[facility]ITALNCLIA [id number] [place] [address] [place] Nucleated RBC/100 WBC (Bld) [Ratio] 0.0 /100 WBC Normal [facility] Comment on above: Order Comment: Dennysi jasiel Type: BLOOD SPECIMENOrdering Facility: [facility] Address: [address] [place], [place] [address] [address] Performed By: #### 5 7021-8 ####[facility] [id number] [place] [address] [place] Platelet mean volume (Bld) [Entitic vol] 10.0 fL Normal 9.0-12.7 [facility] Comment on above: Order Comment: Dennysi jasiel Type: BLOOD SPECIMENOrdering Facility: [facility] Address: [facility] [place] [address] Performed By: #### 5 7021-8 ####[facility] [id number] [place] [address] [place] Platelets (Bld) [#/Vol] 222 10*3/uL Normal 150-400 [facility] Comment on above: Order Comment: Dennysi men Type: BLOOD SPECIMENOrdering Facility: [facility] Address: [facility] [place] [address] Performed By: #### 5 7021-8 ####[facility]TONL[facility] [id number] [place] [address] [place] RBC (Bld) [#/Vol] 4.35 10*6/uL Normal 3.90-5.20 [facility] Comment on above: Order Comment: Speci men Type: BLOOD SPECIMENOrdering Facility: [facility] Address: [address] [place] [address] Performed By: #### 5 7021-8 ####[facility] [id number] [place] [address] [place] WBC (Bld) [#/Vol] 6.90 10*3/uL Normal 3.70-11.00 [facility] Comment on above: Order Comment: Speci men Type: BLOOD SPECIMENOrdering Facility: [facility] Address: [facility] [place] [address] Performed By: #### 5 7021-8 ####[facility] [id number] [place] [address] [place] CREATININE BLDon 07-09-2024 Creatinine [Mass/Vol] 0.65 mg/dL Normal 0.58-0.96 [facility] Comment on above: Order Comment: Luis A weathers Type: BLOOD SPECIMENOrdering Facility: [facility] Address: [facility] [place] [address] Performed By: #### 1 742-6, 1919-11, CRET1 ####[facility]TONLI [id number] [place] [address] [place] Creatinine and Glomerular filtration rate.predicted panel (S/P/Bld) 111 mL/min/1.73m??? Normal >=60 [facility] Comment on above: Order Comment: Luis A weathers Type: BLOOD SPECIMENOrdering Facility: [facility] Address: [facility] [place] [address] Result Comment: Yvonne mated Glomerular Filtration Rate (eGFR) is calculated using the 2020 CKD-EPI creatinine equation. This equation utilizes serum creatinine, sex, and age as parameters. The creatinine assay has traceable calibration to isotope dilution-mass spectrometry. Refer to KDIGO guidelines for clinical interpretation. In patients with unstable renal function, e.g. those with acute kidney injury, the eGFR may not accurately reflect actual GFR. Performed By: #### 1 742-6, 1920-8, CRET1 ####[facility] MILLTOWNCLIA [id number] [place] [address] [place] CRP SerPl-mCncon 07-09-2024 CRP [Mass/Vol] 0.6 mg/dL Normal <0.9 [facility] Comment on above: Order Comment: Luis A weathers Type: BLOOD SPECIMEN Ordering Facility: [facility] Address: [address] [facility], [place] [address] Performed By: #### 1 920-8, 74803-2, 1742-6 #### [facility] CLIA [id number] [address] [place] [address] [place] DNA ANTIBODY DS BLDon 2024 DNA ANTIBODY 924 IU/mL High <=200 [facility] Comment on above: Order Comment: Luis A weathers Type: BLOOD SPECIMEN [facility]ing Facility: [facility] Address: [address] [facility] [place] [address] Result Comment: Nega tive: <200 IU/mL Equivocal: 201-300 IU/mL Moderate Positive: 301-800 IU/mL Strong Positive: >801 IU/mL Performed By: #### 1 920-8, 24639-4, 174-6 #### [facility] CLIA [id number] [address] [place] [address] [place] DNA ANTIBODY QUALITATIVE INTERPRETATION Positive Abnormal Negative [facility] Comment on above: Order Comment: Luis A weathers Type: BLOOD SPECIMEN Ordering Facility: [facility] Address: [address] [facility] [place] [address] Performed By: #### 1 920-8, 09074-9, 174-6 #### [facility] CLIA [id number] [address] [place] [address] [place] ESR Westergren method (Bld) [Velocity]on 07-09-2024 ESR (Bld) [Velocity] 46 mm/h High 0-20 [facility] Comment on above: Order Comment: Speci men Type: BLOOD SPECIMEN Ordering Facility: [facility] Address: [address] [place] [address] Performed By: #### 1 920-8, 55800-8, 1742-6 #### [facility] CLIA [id number] [address] [place] [address] [place] UREA NITROGEN, RANDOM URINEo n 07-09-2024 UREA NITROGEN,UR,RAN 696 mg/dL Normal 140-1500 [facility] Comment on above: Order Comment: Speci men Type: URINE SPECIMEN Ordering Facility: [facility] Address: [address] [place] [address] Performed By: #### U UNR #### [facility] CLIA [id number] [address] [place] [address] [place] Urinalysis complete panel (U )on 07-09-2024 Bacteria LM.HPF (Urine sed) [#/Area] Negative Normal Negative [facility] Comment on above: Order Comment: Speci men Type: URINE SPECIMENOrdering Facility: [facility] Address: [address] [place] [address] Performed By: #### 2 4356-8 ####[facility] LABCLIA [id number] [place] [address] [place] Bilirubin Ql (U) Negative Normal Negative [facility] Comment on above: Order Comment: Speci men Type: URINE SPECIMENOrdering Facility: [facility] Address: [address] [place] [address] Performed By: #### 2 4356-8 ####[facility] LABCLIA [id number] [place] [id number] [place] Clarity (Unsp spec) Clear Normal Clear [facility] Comment on above: Order Comment: Speci men Type: URINE SPECIMENOrdering Facility: [facility] Address: [address], [place] [address] Performed By: #### 2 4356-8 ####[facility] LABCLIA [id number] [facility] [address], [facility] [place] Color (U) Yellow Normal Yellow [facility] Comment on above: Order Comment: Speci men Type: URINE SPECIMENOrdering Facility: [facility] Address: [address] [place], [place] [address] [place] [id number] Performed By: #### 2 4356-8 ####[facility] LABCLIA [id number] [facility] [address], [place] [address] [place] Epithelial cells LM.HPF (Urine sed) [#/Area] Few Normal [facility] Comment on above: Order Comment: Speci men Type: URINE SPECIMENOrdering Facility: [facility] Address: [address] [place] [address] Performed By: #### 2 4356-8 ####[facility] LABCLIA [id number] [facility] [place] [address] [place] Glucose Test strip (U) [Mass/Vol] Negative Normal Negative [facility] Comment on above: Order Comment: Speci men Type: URINE SPECIMENOrdering Facility: [facility] Address: [address] [place] [address] Performed By: #### 2 4356-8 ####[facility] LABCLIA [id number] [facility] [place] [id number] [place] Hemoglobin Ql (U) Negative Normal Negative [facility] Comment on above: Order Comment: Speci men Type: URINE SPECIMENOrdering Facility: [facility] Address: [address] [place], [place] [address] Performed By: #### 2 4356-8 ####[facility] LABCLIA [id number] [facility] [address] [address] [place] Hyaline casts (Urine sed) [#/Area] 0 /[LPF] Normal 0 /LPF [facility] Comment on above: Order Comment: Speci men Type: URINE SPECIMENOrdering Facility: [facility] Address: [address] [place] [address] Performed By: #### 2 4356-8 ####[facility] LABCLIA [id number] [address] [address] [place] Ketones Ql (U) Negative Normal Negative [facility] Comment on above: Order Comment: Speci men Type: URINE SPECIMENOrdering Facility: [facility] Address: [address] [place] [address] Performed By: #### 2 4356-8 ####[facility] LABCLIA [id number] [facility] [place] [address] [place] Leukocyte esterase Test strip Ql (U) Trace Abnormal Negative [facility] Comment on above: Order Comment: Speci men Type: URINE SPECIMENOrdering Facility: [facility] Address: [facility] [place] [address] Performed By: #### 2 4356-8 ####[facility] LABCLIA [id number] [place] [address] [place] Nitrite Ql (U) Negative Normal Negative [facility] Comment on above: Order Comment: Speci men Type: URINE SPECIMENOrdering Facility: [facility] Address: [facility] [place] [address] Performed By: #### 2 4356-8 ####[facility] LABCLIA [id number] [place] [id number] [place] pH (U) 6.0 [pH] Normal <8.5 [facility] Comment on above: Order Comment: Speci men Type: URINE SPECIMENOrdering Facility: [facility] Address: [facility] [place] [address] Performed By: #### 2 4356-8 ####[facility] LABCLIA [id number] [place] [id number] [place] Protein (U) [Mass/Vol] Trace Abnormal Negative [facility] Comment on above: Order Comment: Speci men Type: URINE SPECIMENOrdering Facility: [facility] Address: [address] [place] [address] Performed By: #### 2 4356-8 ####[facility] LABCLIA [id number] [place] [address] [place] RBC LM.HPF (Urine sed) [#/Area] 0-2 /HPF Normal 0-2 /HPF [facility] Comment on above: Order Comment: Speci men Type: URINE SPECIMENOrdering Facility: [facility] Address: [address] [place], [place] [address] [address] Performed By: #### 2 4356-8 ####[facility] LABIA [id number] [place] [address] [place] Specific gravity (U) [Rel density] 1.022 Normal 1.005-1.030 [facility] Comment on above: Order Comment: Speci men Type: URINE SPECIMENOrdering Facility: [facility] Address: [address] [place], [place] [address] [address] Performed By: #### 2 4356-8 ####[facility] LABIA [id number] [place] [address] [place] Urobilinogen Ql (U) 0.2 EU/dL Normal 0.2-1.0 EU/dL Cl [facility] Comment on above: Order Comment: Speci men Type: URINE SPECIMENOrdering Facility: [facility] Address: [address] [place] [address] Performed By: #### 2 4356-8 ####[facility] LABIA [id number] [place] [address] [place] WBC LM.HPF (Urine sed) [#/Area] 0-5 /HPF Normal 0-5 /HPF [facility] Comment on above: Order Comment: Speci men Type: URINE SPECIMENOrdering Facility: [facility] Address: [address] [place] [id number] Performed By: #### 2 4356-8 ####[facility] LABCLIA [id number] [place] [id number] [place] XR HAND LEFT 3+ VIEWSon 06-17 XR HAND LEFT 3+ VIEWS Interpreted By: Yusuf Pickering, STUDY: XR HAND LEFT 3+ VIEWS; ; 07/05/2024 1:35 pm INDICATION: Signs/Symptoms:left hand pain. ,M25.532 Pain in left wrist,M79.642 Pain in left hand COMPARISON: None. ACCESSION NUMBER(S): [id number] ORDERING CLINICIAN: TAYO TALIWAL FINDINGS: Left hand, three views There is no fracture. There is no dislocation. There are no degenerative changes. There is no lytic or sclerotic lesion. There is no soft tissue abnormality seen. No erosions seen IMPRESSION: Normal radiographs of the left hand MACRO: None Signed by: Yusuf Pickering 07/06/2024 6:46 PM Dictation workstation: [id number] [facility] XR WRIST LEFT 3+ VIEWSon XR WRIST LEFT 3+ VIEWS Interpreted By: Yusuf Pickering, STUDY: XR WRIST LEFT 3+ VIEWS; ; 07/05/2024 1:36 pm INDICATION: Signs/Symptoms:left wrist pain. ,M25.532 Pain in left wrist,M79.642 Pain in left hand COMPARISON: None. ACCESSION NUMBER(S): [id number] ORDERING CLINICIAN: TAYO TALIWAL FINDINGS: Left wrist, three views There is no fracture. There is no dislocation. There are no degenerative changes. There is no lytic or sclerotic lesion. There is no soft tissue abnormality seen. IMPRESSION: Normal radiographs of the left wrist MACRO: None Signed by: Yusuf Pickering 07/06/2024 6:47 PM Dictation workstation: [id number] [facility] BI MAMMO LEFT DIAGNOSTIC HUEY OSYNTHESISon 06-25-2024 BI MAMMO LEFT DIAGNOSTIC TOMOSYNTHESIS Interpreted By: Marko Hogan, STUDY: BI MAMMO LEFT DIAGNOSTIC TOMOSYNTHESIS; 06/25/2024 1:27 pm ACCESSION NUMBER(S): [id number] ORDERING CLINICIAN: TAYO RODRIGUEZ INDICATION: Diagnostic mammogram, Signs/Symptoms:abnormal mammogram. COMPARISON: Digital mammograms dated 06/21/2024 FINDINGS: CC and 90 degree mediolateral 2D digital mammograms and digital breast tomosynthesis images were obtained of the left breast. 3-D volume images were reconstructed in 2 views at an independent workstation as 1 mm slices through the breasts in both the CC and MLO projections. Density: The breasts are heterogeneously dense, which may obscure small masses. No persistent mass or focal asymmetry is identified. No suspicious microcalcifications or foci of architectural distortion are seen. This study was interpreted with CAD. IMPRESSION: No mammographic evidence of malignancy. BI-RADS CATEGORY: BI-RADS Category: 1 Negative. Recommendation: Annual Screening. Recommended Date: 1 Year. Laterality: Bilateral. MACRO: None Signed by: Marko Hogan 06/26/2024 9:47 AM Dictation workstation: [id number] [facility] BI MAMMO BILATERAL SCREENING TOMOSYNTHESISon 06-21-2024 BI MAMMO BILATERAL SCREENING TOMOSYNTHESIS Interpreted By: Erika Navarro, STUDY: BI MAMMO BILATERAL SCREENING TOMOSYNTHESIS; 06/21/2024 1:34 pm ACCESSION NUMBER(S): [id number] ORDERING CLINICIAN: TAYO RODRIGUEZ INDICATION: Screening. (Series [id number], Image 118) ,Z12.31 Encounter for screening mammogram for malignant neoplasm of breast COMPARISON: 07/08/2021. FINDINGS: 2D and tomosynthesis images were reviewed at 1 mm slice thickness. Density: The breasts are extremely dense, which lowers the sensitivity of mammography. A masslike asymmetry is seen in the slightly medial left breast at mid to posterior depth. No suspicious masses or calcifications are identified in the right breast. IMPRESSION: Left masslike asymmetry. Diagnostic mammogram and possible ultrasound recommended. No mammographic evidence of malignancy in the right breast. BI-RADS CATEGORY: BI-RADS Category: 0 Incomplete; Need Additional Imaging Evaluation Recommendation: Additional Imaging. Recommended Date: Immediate. Laterality: Left. For any future breast imaging appointments, please call [phone] MACRO: None Signed by: Erika Navarro 06/24/2024 12:23 PM Dictation workstation: [id number] [facility] CULTURE, FUNGUS W/SMEAR NOT HAIR, SKIN, BLOODon 06-12-2024 CULTURE, FUNGUS W/SMEAR NOT HAIR, SKIN, BLOOD SEE NOTE Normal [facility] Comment on above: Result Comment: CULTURE, FUNGUS W/SMEAR NOT HAIR, SKIN, BLOOD Micro Number: [id number] Test Status: Final Specimen Source: Mouth Specimen Quality: Adequate Smear: No fungal elements seen. Result: No yeast isolated Performed By: #### 4 553 #### [facility] [address], [address] [place] [address] Transitional Nurse: Bayron Day MD ALT SerPl-cCncon 05-14-2024 ALT [Catalytic activity/Vol] 12 U/L Normal 7-38 [facility] Comment on above: Order Comment: Speci men Type: BLOOD SPECIMEN [facility]ing Facility: [facility] Address: [facility] [place] [address] Performed By: #### 1 920-8, 91367-7, 1742-6 #### [facility] CLIA [id number] [address] [place] [address] [place] AST SerPl-cCncon 05-14-2024 AST [Catalytic activity/Vol] 18 U/L Normal 13-35 [facility] Comment on above: Order Comment: Speci men Type: BLOOD SPECIMEN Ordering Facility: [facility] Address: [facility] [address] [place] [address] Performed By: #### 1 920-8, 30742-7, 174-6 #### [facility] CLIA [id number] [address] [place] [address] [place] C3 SerPl-mCncon 05-14-2024 Complement C3 [Mass/Vol] 102 mg/dL Normal 86-166 [facility] Comment on above: Order Comment: Speci men Type: BLOOD SPECIMENOrdering Facility: [facility] Address: [facility] [place] [address] Performed By: #### 4 485-9, 1987-08, 4497-05 ####[facility] LABCLIA [id number] [place] [id number] [place] C4 SerPl-mCncon 05-14-2024 Complement C4 [Mass/Vol] 14 mg/dL Normal 13-46 [facility] Comment on above: Order Comment: Speci men Type: BLOOD SPECIMENOrdering Facility: [facility] Address: [facility] [place] [address] Performed By: #### 4 485-9, 1987-08, 4497-05 ####[facility] LABCLIA [id number] [place] [id number] [place] CBC W Auto Differential pane l (Bld)on 05-14-2024 Basophils (Bld) [#/Vol] 10*3/uL Normal <0.11 [facility] Comment on above: Order Comment: Speci men Type: BLOOD SPECIMENOrdering Facility: [facility] Address: [facility] [place] [address] Performed By: #### 5 7021-8 ####[facility] MILLTOWNCLIA [id number] [place] [address] [place] Basophils/100 WBC (Bld) 0.4 % Normal [facility] Comment on above: Order Comment: Speci men Type: BLOOD SPECIMENOrdering Facility: [facility] Address: [facility] [place] [address] Performed By: #### 5 7021-8 ####[facility] MILLTOWNCLIA [id number] [place] [address] [place] Differential cell count method Nom (Bld) Auto Normal [facility] Comment on above: Order Comment: Speci men Type: BLOOD SPECIMENOrdering Facility: [facility] Address: [facility] [place] [address] Performed By: #### 5 7021-8 ####[facility] MILLTOWNCLIA [id number] [place] [address] [place] Eosinophils (Bld) [#/Vol] 0.12 10*3/uL Normal <0.46 [facility] Comment on above: Order Comment: Speci men Type: BLOOD SPECIMENOrdering Facility: [facility] Address: [facility] [place] [address] Performed By: #### 5 7021-8 ####[facility] CENTERWNCLIA [id number] [place] [address] [place] Eosinophils/100 WBC (Bld) 2.2 % Normal [facility] Comment on above: Order Comment: Speci men Type: BLOOD SPECIMENOrdering Facility: [facility] Address: [address] [place], [place] [address] [address] Performed By: #### 5 7021-8 ####[facility] [id number] [place] [address] [place] Erythrocyte distribution width (RBC) [Ratio] 13.0 % Normal 11.5-15.0 [facility] Comment on above: Order Comment: Dennysi jasiel Type: BLOOD SPECIMENOrdering Facility: [facility] Address: [facility] [place] [address] Performed By: #### 5 7021-8 ####[facility]ITALNCLIA [id number] [place] [address] [place] Hematocrit (Bld) [Volume fraction] 40.9 % Normal 36.0-46.0 [facility] Comment on above: Order Comment: Speci men Type: BLOOD SPECIMENOrdering Facility: [facility] Address: [facility] [place] [address] Performed By: #### 5 7021-8 ####[facility]ITALNCLIA [id number] [place] [address] [place] Hemoglobin (Bld) [Mass/Vol] 13.1 g/dL Normal 11.5-15.5 [facility] Comment on above: Order Comment: Speci men Type: BLOOD SPECIMENOrdering Facility: [facility] Address: [address] [place] [address] Performed By: #### 5 7021-8 ####[facility] BRENNONHaydeeTAMALLENA [id number] [place] [address] [place] Immature granulocytes (Bld) [#/Vol] 0.03 10*3/uL Normal <0.10 [facility] Comment on above: Order Comment: Speci men Type: BLOOD SPECIMENOrdering Facility: [facility] Address: [address] [place] [address] Performed By: #### 5 7021-8 ####[facility] HOSPITALSHANDAA [id number] [place] [address] [place] Immature granulocytes/100 WBC (Bld) 0.6 % Normal [facility] Comment on above: Order Comment: Speci men Type: BLOOD SPECIMENOrdering Facility: [facility] Address: [address] [place] [address] Performed By: #### 5 7021-8 ####[facility] [id number] [place] [address] [place] Lymphocytes (Bld) [#/Vol] 1.24 10*3/uL Normal 1.00-4.00 [facility] Comment on above: Order Comment: Speci men Type: BLOOD SPECIMENOrdering Facility: [facility] Address: [address] [place] [address] Performed By: #### 5 7021-8 ####[facility] HAMILTONLIA [id number] [place] [address] [place] Lymphocytes/100 WBC (Bld) 22.8 % Normal [facility] Comment on above: Order Comment: Speci men Type: BLOOD SPECIMENOrdering Facility: [facility] Address: [address] [place], [place] [address] [address] Performed By: #### 5 7021-8 ####[facility] MILLWNCLIA [id number] [place] [address] [place] MCH (RBC) [Entitic mass] 27.3 pg Normal 26.0-34.0 [facility] Comment on above: Order Comment: Speci men Type: BLOOD SPECIMENOrdering Facility: [facility] Address: [address] [place] [address] Performed By: #### 5 7021-8 ####[facility]ITALNCLIA [id number] [place] [address] [place] MCHC (RBC) [Mass/Vol] 32.0 g/dL Normal 30.5-36.0 [facility] Comment on above: Order Comment: Speci men Type: BLOOD SPECIMENOrdering Facility: [facility] Address: [address] [place] [address] Performed By: #### 5 7021-8 ####[facility] HAMILTONLIA [id number] [place] [address] [place] MCV (RBC) [Entitic vol] 85.2 fL Normal 80.0-100.0 [facility] Comment on above: Order Comment: Speci men Type: BLOOD SPECIMENOrdering Facility: [facility] Address: [address] [place] [address] Performed By: #### 5 7021-8 ####[facility]ITALNCLIA [id number] [place] [address] [place] Monocytes (Bld) [#/Vol] 0.52 10*3/uL Normal <0.87 [facility] Comment on above: Order Comment: Speci men Type: BLOOD SPECIMENOrdering Facility: [facility] Address: [address] [place] [address] Performed By: #### 5 7021-8 ####[facility]TONLIA [id number] [place] [address] [place] Monocytes/100 WBC (Bld) 9.6 % Normal [facility] Comment on above: Order Comment: Luis A weathers Type: BLOOD SPECIMENOrdering Facility: [facility] Address: [address] [place] [address] Performed By: #### 5 7021-8 ####[facility] CENTERWNCLIA [id number] [place] [address] [place] Neutrophils (Bld) [#/Vol] 3.50 10*3/uL Normal 1.45-7.50 [facility] Comment on above: Order Comment: Luis A weathers Type: BLOOD SPECIMENOrdering Facility: [facility] Address: [address] [place] [address] Performed By: #### 5 7021-8 ####[facility]ITALTAMLIA [id number] [place] [address] [place] Neutrophils/100 WBC (Bld) 64.4 % Normal [facility] Comment on above: Order Comment: Luis A weathers Type: BLOOD SPECIMENOrdering Facility: [facility] Address: [address] [place] [address] Performed By: #### 5 7021-8 ####[facility]ITALNCLIA [id number] [place] [address] [place] Nucleated RBC (Bld) [#/Vol] 10*3/uL Normal <0.01 [facility] Comment on above: Order Comment: Dennysi jasiel Type: BLOOD SPECIMENOrdering Facility: [facility] Address: [address] [place] [address] Performed By: #### 5 7021-8 ####[facility]ITALNCLIA [id number] [place] [address] [place] Nucleated RBC/100 WBC (Bld) [Ratio] 0.0 /100 WBC Normal [facility] Comment on above: Order Comment: Speci men Type: BLOOD SPECIMENOrdering Facility: [facility] Address: [address] [place], [place] [address] [address] Performed By: #### 5 7021-8 ####[facility] YASMINNCLINaeem [id number] [place] [address] [place] Platelet mean volume (Bld) [Entitic vol] 10.2 fL Normal 9.0-12.7 [facility] Comment on above: Order Comment: Dennysi men Type: BLOOD SPECIMENOrdering Facility: [facility] Address: [address] [place] [address] Performed By: #### 5 7021-8 ####[facility]PITALSHANDAA [id number] [place] [address] [place] Platelets (Bld) [#/Vol] 184 10*3/uL Normal 150-400 [facility] Comment on above: Order Comment: Dennysi men Type: BLOOD SPECIMENOrdering Facility: [facility] Address: [address] [place] [address] Performed By: #### 5 7021-8 ####[facility]ITALNCLIA [id number] [place] [address] [place] RBC (Bld) [#/Vol] 4.80 10*6/uL Normal 3.90-5.20 [facility] Comment on above: Order Comment: Dennysi men Type: BLOOD SPECIMENOrdering Facility: [facility] Address: [address] [place], [place] [address] [address] Performed By: #### 5 7021-8 ####[facility]ITALNCLIA [id number] [place] [address] [place] WBC (Bld) [#/Vol] 5.43 10*3/uL Normal 3.70-11.00 [facility] Comment on above: Order Comment: Dennysi men Type: BLOOD SPECIMENOrdering Facility: [facility] Address: [address] [place] [address] Performed By: #### 5 7021-8 ####[facility]ILTONLIA [id number] [place] [address] [place] CREATININE BLDon 05-14-2024 Creatinine [Mass/Vol] 0.64 mg/dL Normal 0.58-0.96 [facility] Comment on above: Order Comment: Speci men Type: BLOOD SPECIMEN Ordering Facility: [facility] Address: [address] [place] [address] Performed By: #### 1 920-8, 32132-6, 1746 #### [facility] CLIA [id number] [address] [place] [address] [place] Creatinine and Glomerular filtration rate.predicted panel (S/P/Bld) 112 mL/min/1.73m??? Normal >=60 [facility] Comment on above: Order Comment: Speci jasiel Type: BLOOD SPECIMEN Ordering Facility: [facility] Address: [facility] [place] [address] Result Comment: Yvonne mated Glomerular Filtration Rate (eGFR) is calculated using the 2020 CKD-EPI creatinine equation. This equation utilizes serum creatinine, sex, and age as parameters. The creatinine assay has traceable calibration to isotope dilution-mass spectrometry. Refer to KDIGO guidelines for clinical interpretation. In patients with unstable renal function, e.g. those with acute kidney injury, the eGFR may not accurately reflect actual GFR. Performed By: #### 1 920-8, 87843-2, 6 #### [facility] CLIA [id number] [address] [place] [address] [place] CRP SerPl-mCncon 05-14-2024 CRP [Mass/Vol] 0.4 mg/dL Normal <0.9 [facility] Comment on above: Order Comment: Speci men Type: BLOOD SPECIMENOrdering Facility: [facility] Address: [address] [place] [address] Performed By: #### 4 485-9, 1987-08, 4498-2 ####[facility] LABCLIA [id number] [place] [address] [place] DNA ANTIBODY DS BLDon 2024 DNA ANTIBODY 968 IU/mL High <=200 [facility] Comment on above: Order Comment: Speci men Type: BLOOD SPECIMENOrdering Facility: [facility] Address: [facility] [place] [address] Result Comment: Nega tive: <200 IU/mL Equivocal: 201-300 IU/mL Moderate Positive: 301-800 IU/mL Strong Positive: >801 IU/mL Performed By: #### D NAAB ####[facility] LABCLIA [id number] [place] [address] [place] DNA ANTIBODY QUALITATIVE INTERPRETATION Positive Abnormal Negative [facility] Comment on above: Order Comment: Speci men Type: BLOOD SPECIMENOrdering Facility: [facility] Address: [facility] [place] [address] Performed By: #### D NAAB ####[facility] LABCLIA [id number] [place] [address] [place] UREA NITROGEN, RANDOM URINEo n 05-14-2024 UREA NITROGEN,UR,RAN 149 mg/dL Normal 140-1500 [facility] Comment on above: Order Comment: Speci men Type: BLOOD SPECIMEN Ordering Facility: [facility] Address: [facility] [place] [address] Performed By: #### 1 920-8, 62323-6, 1742-6 #### [facility] CLIA [id number] [address] [place] [id number] [place] Urinalysis complete panel (U )on 05-14-2024 Bacteria LM.HPF (Urine sed) [#/Area] Negative Normal Negative [facility] Comment on above: Order Comment: Speci men Type: URINE SPECIMENOrdering Facility: [facility] Address: [facility] [address] [place] [address] Performed By: #### 2 4356-8 ####[facility] LABCLIA [id number] [place] [address] [place] Bilirubin Ql (U) Negative Normal Negative [facility] Comment on above: Order Comment: Speci men Type: URINE SPECIMENOrdering Facility: [facility] Address: [address] [place] [id number] Performed By: #### 2 4356-8 ####[facility] LABCLIA [id number] [place] [address] [place] Clarity (Unsp spec) Clear Normal Clear [facility] Comment on above: Order Comment: Speci men Type: URINE SPECIMENOrdering Facility: [facility] Address: [address] [place] [id number] Performed By: #### 2 4356-8 ####[facility] LABCLIA [id number] [place] [address] [place] Color (U) Yellow Normal Yellow [facility] Comment on above: Order Comment: Speci men Type: URINE SPECIMENOrdering Facility: [facility] Address: [address] [place] [id number] Performed By: #### 2 4356-8 ####[facility] LABCLIA [id number] [place] [address] [place] Epithelial cells LM.HPF (Urine sed) [#/Area] Few Normal [facility] Comment on above: Order Comment: Speci men Type: URINE SPECIMENOrdering Facility: [facility] Address: [address] [place] [id number] Performed By: #### 2 4356-8 ####[facility] LABCLIA [id number] [place] [address] [place] Glucose Test strip (U) [Mass/Vol] Negative Normal Negative [facility] Comment on above: Order Comment: Speci men Type: URINE SPECIMENOrdering Facility: [facility] Address: [address] [place] [address] Performed By: #### 2 4356-8 ####[facility] LABCLIA [id number] [place] [address] [place] Hemoglobin Ql (U) Negative Normal Negative [facility] Comment on above: Order Comment: Speci men Type: URINE SPECIMENOrdering Facility: [facility] Address: [address] [place] [address] Performed By: #### 2 4356-8 ####[facility] LABCLIA [id number] [place] [address] [place] Hyaline casts (Urine sed) [#/Area] 0 /[LPF] Normal 0 /LPF [facility] Comment on above: Order Comment: Speci men Type: URINE SPECIMENOrdering Facility: [facility] Address: [facility] [place] [address] Performed By: #### 2 4356-8 ####[facility] LABCLIA [id number] [place] [address] [place] Ketones Ql (U) Negative Normal Negative [facility] Comment on above: Order Comment: Speci men Type: URINE SPECIMENOrdering Facility: [facility] Address: [facility] [place] [address] Performed By: #### 2 4356-8 ####[facility] LABCLIA [id number] [place] [address] [place] Leukocyte esterase Test strip Ql (U) Trace Abnormal Negative [facility] Comment on above: Order Comment: Speci men Type: URINE SPECIMENOrdering Facility: [facility] Address: [address] [place] [address] Performed By: #### 2 4356-8 ####[facility] LABCLIA [id number] [place] [address] [place] Nitrite Ql (U) Negative Normal Negative [facility] Comment on above: Order Comment: Speci men Type: URINE SPECIMENOrdering Facility: [facility] Address: [address] [place] [id number] Performed By: #### 2 4356-8 ####[facility] LABCLIA [id number] [place] [address] [place] pH (U) 6.5 [pH] Normal <8.5 [facility] Comment on above: Order Comment: Speci men Type: URINE SPECIMENOrdering Facility: [facility] Address: [address] [place] [id number] Performed By: #### 2 4356-8 ####[facility] LABCLIA [id number] [place] [address] [place] Protein (U) [Mass/Vol] Negative Normal Negative [facility] Comment on above: Order Comment: Speci men Type: URINE SPECIMENOrdering Facility: [facility] Address: [address] [place] [address] Performed By: #### 2 4356-8 ####[facility] LABCLIA [id number] [place] [address] [place] RBC LM.HPF (Urine sed) [#/Area] 0-2 /HPF Normal 0-2 /HPF [facility] Comment on above: Order Comment: Speci men Type: URINE SPECIMENOrdering Facility: [facility] Address: [address] [place] [address] Performed By: #### 2 4356-8 ####[facility] LABCLIA [id number] [place] [id number] [place] Specific gravity (U) [Rel density] 1.009 Normal 1.005-1.030 [facility] Comment on above: Order Comment: Speci men Type: URINE SPECIMENOrdering Facility: [facility] Address: [address] [place] [id number] Performed By: #### 2 4356-8 ####[facility] LABCLIA [id number] [place] [address] [place] Urobilinogen Ql (U) 0.2 EU/dL Normal 0.2-1.0 EU/dL Cl [facility] Comment on above: Order Comment: Speci men Type: URINE SPECIMENOrdering Facility: [facility] Address: [address] [place] [address] Performed By: #### 2 4356-8 ####[facility] LABIA [id number] [place] [address] [place] WBC LM.HPF (Urine sed) [#/Area] 0-5 /HPF Normal 0-5 /HPF [facility] Comment on above: Order Comment: Speci men Type: URINE SPECIMENOrdering Facility: [facility] Address: [address] [place] [address] Performed By: #### 2 4356-8 ####[facility] LABIA [id number] [place] [address] [place] CNOVon 03-29-20[facility] TAMY VAZQUEZ ([id number]) 1980 F Date Time Provider Department 03/29/24 12:00 PM MADISON MEDINA [facility] During your visit today, we recorded the following information about you: Temperature Pulse Respiration Blood pressure 98 degrees 83/minute 18/minute 103/70 Weight 52 kg Madison Medina APRN.MALE INFERTILITY SPECIALIST 03/29/2024 1:27 PM Signed This note was created using NoteWriter. Subjective Tamy Juarez Taylor is a 43 year old female. 43 year old female with PMH hyperparathyroid and osteoporosis presents for toe complaints Acute onset 2 days ago Right great toe +redness +swelling +pain Denies trauma or injury Denies fever or chills Denies drainage Endorses that she cut her nails a few days ago She has a podiatry appt scheduled next Tuesday She is on Augmentin for tonsillitis Has used epsom soaks The history is provided by the patient. 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 Musculoskeletal Problem This is a new problem. The current episode started yesterday. The problem occurs constantly. The problem has been gradually worsening. Associated symptoms include joint swelling. Pertinent negatives include no abdominal pain, anorexia, arthralgias, change in bowel habit, chest pain, chills, congestion, coughing, diaphoresis, fatigue, fever, headaches, myalgias, nausea, neck pain, numbness, rash, sore throat, swollen glands, urinary symptoms, vertigo, visual change, vomiting or weakness. Exacerbated by: soapy soaks. She has tried nothing for the symptoms. The treatment provided no relief. 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 Endometriosis, site unspecified Endometriosis Esophageal reflux hx of low vitamin D recheck normal Hyperparathyroidism ([facility]) 2015 parathyroidectomy Menorrhagia fibroids UFE Nephrolithiasis Osteoporosis 05/2022 with LOSS T-score -3.0 08/2022 nl urine calcium 260 Peripheral vascular disease ([facility]) Personal history of unspecified urinary disorder PMH - PAST MEDICAL HISTORY OF 04/18/2005 blood clot internal jugular vein, 4 weeks diagnosed Protein S deficiency (HCC) 05/19/2002 cavernous sinus thrombosis 4 week Raynaud's syndrome CTD plaquenil Rib fracture 06/19/2014 Seasonal allergies Uterine fibroid s/p UFE PAST SURGICAL HISTORY Procedure Laterality Date EMBOLIZATION UTERINE FIBROID 03/18/2013 LAPAROSCOPIC APPENDECTOMY 03/30/2021 LAPS ABD PRTMANDOMENTUM DX W/WO SPEC BR/WA SPX 04/18/2004 Laparoscopy for endometriosis at [place] Dr Soliman at [facility], no control afterward, ++relief and + relief with surgery, laser PARATHYROIDECTOMY/EXPLOR ATION PARATHYROIDS 08/05/2014 PT ED ENDOCRINOLOGY 2016 RECLAST INJECTION for 1st one via endo 08/2022 ALLERGIES Amerigel [Zinc Acetate], Cefdinir, and Flagyl [Metronidazole] MEDICATIONS budesonide-formoterol (SYMBICORT) 160-4.5 mcg/actuation inhaler inhale 2 puffs by mouth twice a day - RINSE MOUTH WITH WATER AFT... (REFER TO PRESCRIPTION NOTES). mycophenolate sodium DR (MYFORTIC) 360 mg TbEC Take 1 tablet by mouth once daily. DHEA vaginal suppository 13 mg (CPD) Unwrap and insert 1 suppository vaginally at bedtime. Refrigerate remainder of package. Cholecalciferol, Vitamin D3, (VITAMIN D) 25 mcg (1,000 unit) cap Take 2 capsules by mouth once daily. ketoconazole (NIZORAL) 2 % shampoo Ketoconazole 2 % External Shampoo WASH THE SCALP DAILY - LATHER - LEAVE ON FOR 3-5 MINUTES, THEN RINSE Quantity: 120 Refills: 0 Ordered: 29-Jul-2020 DO Start : 14-Jan-2020 Complete Spirometers and Accessories gary 1 Device four times daily. warfarin (COUMADIN) 2 mg tablet Take 1.5 tablets by mouth daily as directed. (Patient taking differently: Take 2 mg by mouth once daily.) montelukast (SINGULAIR) 10 mg tablet Take 10 mg by mouth daily at bedtime. fexofenadine HCl (ERNESTINE ORAL) Take by mouth as needed. Doxycycline Monohydrate 40 mg capsule Take 40 mg by mouth once daily. hydrOXYchloroQUINE (PLAQUENIL) 200 mg tablet Take 200 mg by mouth once daily. cephALEXin (KEFLEX) 500 mg capsule Take 1 capsule by mouth four times daily for 5 days. FAMILY HISTORY Problem Relation Age of Onset other (hysterectomy) Mother Osteoporosis Mother Asthma Mother Hypertension Father Diabetes Father other (seasonal allergies) Brother No Known Problems Maternal Grandmother No Known Problems Maternal Grandfather No Known Problems Paternal Grandmother Heart Attack Paternal Grandfather ADD/ADHD Son Social History Tobacco Use Smoking status: Never Smokeless tobacco: Never Vaping Use Vaping status: Never Used Substance Use Topics Alcohol use: Yes Alcohol/week: 2.0 standard drinks of alcohol Types: 2 Glasses of Wine (5oz) per week Comment: occasional (more content not included)... Normal [facility] CNOVon 03-05-2024 CNOV Office Visit ([facility] ) -------- TAMY VAZQUEZ ([id number]) 1980 F Date Time Provider Department 03/05/24 3:20 PM ALAN RENE [facility] During your visit today, we recorded the following information about you: Pulse Respiration Blood pressure 78/minute 16/minute 102/70 Alan Rene MD 03/05/2024 4:11 PM [facility] [place] Tamy Vazquez is a 43 year old female here for a follow up with the [facility] Interstitial Lung Disease Team. HISTORY OF PRESENT ILLNESS: Patient is doing well-no exertional dyspnea REVIEW OF SYSTEMS: MRC Dyspnea Scale: 1. Not troubled by breathlessness except on strenuous exercise All others per history of present illness or otherwise negative on detailed 14 point review. 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 Endometriosis, site unspecified Endometriosis Esophageal reflux hx of low vitamin D recheck normal Hyperparathyroidism (HCC) 2014 parathyroidectomy Menorrhagia fibroids UFE Nephrolithiasis Osteoporosis 05/2022 with LOSS T-score -3.0 08/2022 nl urine calcium 260 Peripheral vascular disease (HCC) Personal history of unspecified urinary disorder PMH - PAST MEDICAL HISTORY OF 04/18/2005 blood clot internal jugular vein, 4 weeks diagnosed Protein S deficiency (HCC) 05/19/2002 cavernous sinus thrombosis 4 week Raynaud's syndrome CTD plaquenil Rib fracture 06/19/2014 Seasonal allergies Uterine fibroid s/p UFE PAST SURGICAL HISTORY Procedure Laterality Date EMBOLIZATION UTERINE FIBROID 03/18/2013 LAPAROSCOPIC APPENDECTOMY 03/30/2021 LAPS ABD PRTMANDOMENTUM DX W/WO SPEC BR/WA SPX 04/18/2004 Laparoscopy for endometriosis at [place] Dr Soliman at [facility], no control afterward, ++relief and + relief with surgery, laser PARATHYROIDECTOMY/EXPLOR ATION PARATHYROIDS 08/05/2014 PT ED ENDOCRINOLOGY 2016 RECLAST INJECTION for 1st one via endo 08/2022 SOCIAL HISTORY: Social History Tobacco Use Smoking status: Never Smokeless tobacco: Never Alcohol Use: Approximately 1.2 oz/week [which includes 2 Glasses of Wine (5oz) per week] (occasional) Drug Use: No FAMILY HISTORY Problem Relation Age of Onset other (hysterectomy) Mother Osteoporosis Mother Asthma Mother Hypertension Father Diabetes Father other (seasonal allergies) Brother No Known Problems Maternal Grandmother No Known Problems Maternal Grandfather No Known Problems Paternal Grandmother Heart Attack Paternal Grandfather ADD/ADHD Son ALLERGIES Allergen Reactions Amerigel [Zinc Acet* Daniel burning at area Cefdinir Other: See Comments Dizzy Flagyl [Metronidazo* Intolerance, GI Upset Nausea, fatigue, poor appetite CURRENT MEDICATIONS budesonide-formoterol (SYMBICORT) 160-4.5 mcg/actuation inhaler inhale 2 puffs by mouth twice a day - RINSE MOUTH WITH WATER AFT... (REFER TO PRESCRIPTION NOTES). mycophenolate sodium DR (MYFORTIC) 360 mg TbEC Take 1 tablet by mouth once daily. DHEA vaginal suppository 13 mg (CPD) Unwrap and insert 1 suppository vaginally at bedtime. Refrigerate remainder of package. Cholecalciferol, Vitamin D3, (VITAMIN D) 25 mcg (1,000 unit) cap Take 2 capsules by mouth once daily. ketoconazole (NIZORAL) 2 % shampoo Ketoconazole 2 % External Shampoo WASH THE SCALP DAILY - LATHER - LEAVE ON FOR 3-5 MINUTES, THEN RINSE Quantity: 120 Refills: 0 Ordered: 29-Jul-2020 DO Start : 14-Jan-2020 Complete Spirometers and Accessories gary 1 Device four times daily. warfarin (COUMADIN) 1 mg tablet take 2 AND 1/2 tablets by mouth once daily (Patient taking differently: Take 2 mg by mouth once daily.) warfarin (COUMADIN) 2 mg tablet Take 1.5 tablets by mouth daily as directed. montelukast (SINGULAIR) 10 mg tablet Take 10 mg by mouth daily at bedtime. fexofenadine HCl (ERNESTINE ORAL) Take by mouth as needed. calcium citrate/vitamin D3 (CALCIUM CITRATE + D ORAL) Take 1 tablet by mouth once daily. Doxycycline Monohydrate 40 mg capsule Take 40 mg by mouth once daily. hydrOXYchloroQUINE (PLAQUENIL) 200 mg tablet Take 200 mg by mouth once daily. 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 September 2020-cbc and hepatic wnl Pulmonary Function Data P (more content not included)... Normal [facility] ALT SerPl-cCncon 02-20-2024 ALT [Catalytic activity/Vol] 16 U/L Normal 7-38 [facility] Comment on above: Order Comment: Speci men Type: BLOOD SPECIMEN [facility]ing Facility[facility] Address: [address] [place] [address] Performed By: #### 1 920-8, 11282-9, 1746 #### [facility] CLIA [id number] [address] [place] [address] [place] AST SerPl-cCncon 02-20-2024 AST [Catalytic activity/Vol] 22 U/L Normal 13-35 [facility] Comment on above: Order Comment: Speci men Type: BLOOD SPECIMEN Ordering Facility: [facility] Address: [address] [place] [address] Performed By: #### 1 920-8, 40703-3, 1746 #### [facility] CLIA [id number] [address] [place] [address] [place] BUN SerPl-mCncon 02-20-2024 Urea nitrogen [Mass/Vol] 14 mg/dL Normal 7-21 [facility] Comment on above: Order Comment: Speci men Type: BLOOD SPECIMEN [facility] Address: [address] [place] [address] Performed By: #### 1 920-8, 71071-1, 174-6 #### [facility] CLIA [id number] [address] [place] [address] [place] C3 SerPl-mCncon 02-20-2024 Complement C3 [Mass/Vol] 108 mg/dL Normal 86-166 [facility] Comment on above: Order Comment: Speci men Type: BLOOD SPECIMEN [facility]ing Facility: [facility] Address: [address] [place] [address] Performed By: #### 1 920-8, 22398-7, 174-6 #### [facility] CLIA [id number] [address] [place] [address] [place] C4 SerPl-mCncon 02-20-2024 Complement C4 [Mass/Vol] 16 mg/dL Normal 13-46 [facility] Comment on above: Order Comment: Dennysi jasiel Type: BLOOD SPECIMEN [facility]ing Facility: [facility] Address: [address] [place] [address] Performed By: #### 1 920-8, 09573-7, 174-6 #### [facility] CLIA [id number] [address] [place] [address] [place] CBC W Auto Differential pane l (Bld)on 02-20-2024 Basophils (Bld) [#/Vol] 0.03 10*3/uL Normal <0.11 [facility] Comment on above: Order Comment: Dennysi jasiel Type: BLOOD SPECIMENOrdering Facility: [facility] Address: [address] [place] [address] Performed By: #### 5 7021-8, 4537-7 ####[facility] LABCLIA [id number] [place] [address] [place] Basophils/100 WBC (Bld) 0.6 % Normal [facility] Comment on above: Order Comment: Speci men Type: BLOOD SPECIMENOrdering Facility: [facility] Address: [address] [place] [address] Performed By: #### 5 7021-8, 4536-7 ####[facility] LABCLIA [id number] [place] [address] [place] Differential cell count method Nom (Bld) Auto Normal [facility] Comment on above: Order Comment: Speci men Type: BLOOD SPECIMENOrdering Facility: [facility] Address: [address] [place] [address] Performed By: #### 5 7021-8, 7 ####[facility] LABCLIA [id number] [place] [address] [place] Eosinophils (Bld) [#/Vol] 0.10 10*3/uL Normal <0.46 [facility] Comment on above: Order Comment: Dennysi jasiel Type: BLOOD SPECIMENOrdering Facility: [facility] Address: [address] [place] [address] Performed By: #### 5 7021-8, 7 ####[facility] LABCLIA [id number] [place] [address] [place] Eosinophils/100 WBC (Bld) 2.0 % Normal [facility] Comment on above: Order Comment: Dennysi men Type: BLOOD SPECIMENOrdering Facility: [facility] Address: [address] [place] [address] Performed By: #### 5 7021-8, 4536-7 ####[facility] LABCLIA [id number] [place] [address] [place] Erythrocyte distribution width (RBC) [Ratio] 13.2 % Normal 11.5-15.0 [facility] Comment on above: Order Comment: Dennysi men Type: BLOOD SPECIMENOrdering Facility: [facility] Address: [address] [place] [address] Performed By: #### 5 7021-8, 7 ####[facility] LABCLIA [id number] [place] [address] [place] Hematocrit (Bld) [Volume fraction] 41.9 % Normal 36.0-46.0 [facility] Comment on above: Order Comment: Speci men Type: BLOOD SPECIMENOrdering Facility: [facility] Address: [address] [place] [address] Performed By: #### 5 7021-8, 7 ####[facility] LABCLIA [id number] [place] [address] [place] Hemoglobin (Bld) [Mass/Vol] 13.0 g/dL Normal 11.5-15.5 [facility] Comment on above: Order Comment: Speci men Type: BLOOD SPECIMENOrdering Facility: [facility] Address: [facility] [place] [address] Performed By: #### 5 7021-8, 7 ####[facility] LABCLIA [id number] [place] [address] [place] Immature granulocytes (Bld) [#/Vol] 10*3/uL Normal <0.10 [facility] Comment on above: Order Comment: Speci men Type: BLOOD SPECIMENOrdering Facility: [facility] Address: [facility] [place] [address] Performed By: #### 5 7021-8, 7 ####[facility] LABCLIA [id number] [place] [id number] [place] Immature granulocytes/100 WBC (Bld) 0.2 % Normal [facility] Comment on above: Order Comment: Speci men Type: BLOOD SPECIMENOrdering Facility: [facility] Address: [address] [place] [address] Performed By: #### 5 7021-8, 4536-10 ####[facility] LABCLIA [id number] [place] [address] [place] Lymphocytes (Bld) [#/Vol] 1.50 10*3/uL Normal 1.00-4.00 [facility] Comment on above: Order Comment: Speci men Type: BLOOD SPECIMENOrdering Facility: [facility] Address: [address] [place] [address] Performed By: #### 5 7021-8, 453-7 ####[facility] LABCLIA [id number] [place] [address] [place] Lymphocytes/100 WBC (Bld) 29.4 % Normal [facility] Comment on above: Order Comment: Speci men Type: BLOOD SPECIMENOrdering Facility: [facility] Address: [address] [place] [address] Performed By: #### 5 7021-8, 4536-7 ####[facility] LABCLIA [id number] [place] [address] [place] MCH (RBC) [Entitic mass] 28.2 pg Normal 26.0-34.0 [facility] Comment on above: Order Comment: Speci men Type: BLOOD SPECIMENOrdering Facility: [facility] Address: [address] [place] [address] Performed By: #### 5 7021-8, 7-7 ####[facility] LABCLIA [id number] [place] [address] [place] MCHC (RBC) [Mass/Vol] 31.0 g/dL Normal 30.5-36.0 [facility] Comment on above: Order Comment: Speci men Type: BLOOD SPECIMENOrdering Facility: [facility] Address: [address] [place] [address] Performed By: #### 5 7021-8, 4536-7 ####[facility] LABCLIA [id number] [address] [id number] [address] [place] MCV (RBC) [Entitic vol] 90.9 fL Normal 80.0-100.0 [facility] Comment on above: Order Comment: Speci men Type: BLOOD SPECIMENOrdering Facility: [facility] Address: [facility] [place] [address] Performed By: #### 5 7021-8, 4536-10 ####[facility] LABCLIA [id number] [place] [address] [place] Monocytes (Bld) [#/Vol] 0.56 10*3/uL Normal <0.87 [facility] Comment on above: Order Comment: Speci men Type: BLOOD SPECIMENOrdering Facility: [facility] Address: [address] [place], [place] [address] [address] Performed By: #### 5 7021-8, 4536-10 ####[facility] LABCLIA [id number] [place] [address] [place] Monocytes/100 WBC (Bld) 11.0 % Normal [facility] Comment on above: Order Comment: Speci men Type: BLOOD SPECIMENOrdering Facility: [facility] Address: [facility] [place] [address] Performed By: #### 5 7021-8, 4536-10 ####[facility] LABCLIA [id number] [place] [address] [place] Neutrophils (Bld) [#/Vol] 2.91 10*3/uL Normal 1.45-7.50 [facility] Comment on above: Order Comment: Speci men Type: BLOOD SPECIMENOrdering Facility: [facility] Address: [address] [place], [place] [address] [address] Performed By: #### 5 7021-8, 4536-10 ####[facility] LABCLIA [id number] [place] [address] [place] Neutrophils/100 WBC (Bld) 56.8 % Normal [facility] Comment on above: Order Comment: Speci men Type: BLOOD SPECIMENOrdering Facility: [facility] Address: [address] [place] [id number] Performed By: #### 5 7021-8, 4536-7 ####[facility] LABCLIA [id number] [place] [address] [place] Nucleated RBC (Bld) [#/Vol] 10*3/uL Normal <0.01 [facility] Comment on above: Order Comment: Dennysi jasiel Type: BLOOD SPECIMENOrdering Facility: [facility] Address: [address] [place] [id number] Performed By: #### 5 7021-8, 4536-7 ####[facility] LABCLIA [id number] [place] [address] [place] Nucleated RBC/100 WBC (Bld) [Ratio] 0.0 /100 WBC Normal [facility] Comment on above: Order Comment: Luis A weathers Type: BLOOD SPECIMENOrdering Facility: [facility] Address: [address] [place] [phone] Performed By: #### 5 7021-8, 4536-7 ####[facility] LABCLIA [id number] [place] [address] [place] Platelet mean volume (Bld) [Entitic vol] 11.4 fL Normal 9.0-12.7 [facility] Comment on above: Order Comment: Luis A weathers Type: BLOOD SPECIMENOrdering Facility: [facility] Address: [address] [place] [phone] Performed By: #### 5 7021-8, 4536-7 ####[facility] LABCLIA [id number] [place] [address] [place] Platelets (Bld) [#/Vol] 201 10*3/uL Normal 150-400 [facility] Comment on above: Order Comment: Dennysi jasiel Type: BLOOD SPECIMENOrdering Facility: [facility] Address: [address] [place] [phone] Performed By: #### 5 7021-8, 4537-7 ####[facility] LABCLIA [id number] [address] [address] [place] RBC (Bld) [#/Vol] 4.61 10*6/uL Normal 3.90-5.20 [facility] Comment on above: Order Comment: Speci men Type: BLOOD SPECIMENOrdering Facility: [facility] Address: [address] [place] [address] Performed By: #### 5 7021-8, 4537-7 ####[facility]CLIA [id number] [place] [address] [place] WBC (Bld) [#/Vol] 5.11 10*3/uL Normal 3.70-11.00 [facility] Comment on above: Order Comment: Speci men Type: BLOOD SPECIMENOrdering Facility: [facility] Address: [address] [place] [address] Performed By: #### 5 7021-8, 4537-7 ####[facility] LABIA [id number] [place] [id number] [place] CREATININE BLDon 02-20-2024 Creatinine [Mass/Vol] 0.68 mg/dL Normal 0.58-0.96 [facility] Comment on above: Order Comment: Speci men Type: BLOOD SPECIMENOrdering Facility: [facility] Address: [address] [place] [address] Performed By: #### C RET1 ####[facility] LABIA [id number] [place] [id number] [place] Creatinine and Glomerular filtration rate.predicted panel (S/P/Bld) 111 mL/min/1.73m??? Normal >=60 [facility] Comment on above: Order Comment: Speci men Type: BLOOD SPECIMENOrdering Facility: [facility] Address: [address], [place] [address] Result Comment: Yvonne mated Glomerular Filtration Rate (eGFR) is calculated using the 2020 CKD-EPI creatinine equation. This equation utilizes serum creatinine, sex, and age as parameters. The creatinine assay has traceable calibration to isotope dilution-mass spectrometry. Refer to KDIGO guidelines for clinical interpretation. In patients with unstable renal function, e.g. those with acute kidney injury, the eGFR may not accurately reflect actual GFR. Performed By: #### C RET1 ####[facility]CLIA [id number] [place] [address] [place] [facility] CRP [Mass/Vol] mg/L Normal <0.9 [facility] Comment on above: Order Comment: Speci jasiel Type: BLOOD SPECIMEN Ordering Facility: [facility] Address: [address] [place] [address] Performed By: #### 1 920-8, 65097-9, 1742-6 #### [facility] CLIA [id number] [address] [place] [address] [place] DNA ANTIBODY DS BLDon 2023 DNA ANTIBODY 901 IU/mL High <=200 [facility] Comment on above: Order Comment: Luis A weathers Type: BLOOD SPECIMENOrdering Facility: [facility] Address: [address] [place] [address] Result Comment: Nega tive: <200 IU/mL Equivocal: 201-300 IU/mL Moderate Positive: 301-800 IU/mL Strong Positive: >801 IU/mL Performed By: #### D NAAB ####[facility] LABCLIA [id number] [place] [address] [place] DNA ANTIBODY QUALITATIVE INTERPRETATION Positive Abnormal Negative [facility] Comment on above: Order Comment: Luis A weathers Type: BLOOD SPECIMENOrdering Facility: [facility] Address: [address] [place] [address] Performed By: #### D NAAB ####[facility] LABCLIA [id number] [place] [address] [place] ESR Westergren method (Bld) [Velocity]on 02-20-2024 ESR (Bld) [Velocity] 47 mm/h High 0-20 [facility] Comment on above: Order Comment: Speci men Type: BLOOD SPECIMENOrdering Facility: [facility] Address: [address] [place] [address] Performed By: #### 5 7021-8, 4537-7 ####[facility] LABCLIA [id number] [place] [address] [place] Urinalysis complete panel (U )on 02-20-2024 Bacteria LM.HPF (Urine sed) [#/Area] Negative Normal Negative [facility] Comment on above: Order Comment: Speci men Type: URINE SPECIMENOrdering Facility: [facility] Address: [address] [place] [address] Performed By: #### 2 4356-8 ####[facility] LABCLIA [id number] [place] [address] [place] Bilirubin Ql (U) Negative Normal Negative [facility] Comment on above: Order Comment: Speci men Type: URINE SPECIMENOrdering Facility: [facility] Address: [address] [place] [address] Performed By: #### 2 4356-8 ####[facility] LABCLIA [id number] [place] [address] [place] Clarity (Unsp spec) Clear Normal Clear [facility] Comment on above: Order Comment: Speci men Type: URINE SPECIMENOrdering Facility: [facility] Address: [address] [place] [address] Performed By: #### 2 4356-8 ####[facility]CLIA [id number] [place] [address] [place] Color (U) Yellow Normal Yellow [facility] Comment on above: Order Comment: Speci men Type: URINE SPECIMENOrdering Facility: [facility] Address: [address] [place] [address] Performed By: #### 2 4356-8 ####[facility] LABCLIA [id number] [place] [address] [place] Epithelial cells LM.HPF (Urine sed) [#/Area] Moderate Normal [facility] Comment on above: Order Comment: Speci men Type: URINE SPECIMENOrdering Facility: [facility] Address: [address] [place], [place] [address] [address] Performed By: #### 2 4356-8 ####[facility] LABCLIA [id number] [place] [address] [place] Glucose Test strip (U) [Mass/Vol] Negative Normal Negative [facility] Comment on above: Order Comment: Speci men Type: URINE SPECIMENOrdering Facility: [facility] Address: [address] [place] [address] Performed By: #### 2 4356-8 ####[facility] LABCLIA [id number] [place] [address] [place] Hemoglobin Ql (U) Negative Normal Negative [facility] Comment on above: Order Comment: Speci men Type: URINE SPECIMENOrdering Facility: [facility] Address: [facility] [place] [address] Performed By: #### 2 4356-8 ####[facility] LABCLIA [id number] [place] [address] [place] Hyaline casts (Urine sed) [#/Area] 0 /[LPF] Normal 0 /LPF [facility] Comment on above: Order Comment: Speci men Type: URINE SPECIMENOrdering Facility: [facility] Address: [address] [place], [place] [address] [address] Performed By: #### 2 4356-8 ####[facility] LABCLIA [id number] [place] [address] [place] Ketones Ql (U) Negative Normal Negative [facility] Comment on above: Order Comment: Speci men Type: URINE SPECIMENOrdering Facility: [facility] Address: [address] [place] [address] Performed By: #### 2 4356-8 ####[facility] LABCLIA [id number] [place] [address] [place] Leukocyte esterase Test strip Ql (U) 1+ Abnormal Negative [facility] Comment on above: Order Comment: Speci men Type: URINE SPECIMENOrdering Facility: [facility] Address: [address] [place] [id number] Performed By: #### 2 4356-8 ####[facility] LABCLIA [id number] [place] [address] [place] Nitrite Ql (U) Negative Normal Negative [facility] Comment on above: Order Comment: Speci men Type: URINE SPECIMENOrdering Facility: [facility] Address: [address] [place] [address] Performed By: #### 2 4356-8 ####[facility] LABCLIA [id number] [place] [address] [place] pH (U) 6.0 [pH] Normal <8.5 [facility] Comment on above: Order Comment: Speci men Type: URINE SPECIMENOrdering Facility: [facility] Address: [address] [place] [address] Performed By: #### 2 4356-8 ####[facility] LABCLIA [id number] [place] [id number] [place] Protein (U) [Mass/Vol] Negative Normal Negative [facility] Comment on above: Order Comment: Speci men Type: URINE SPECIMENOrdering Facility: [facility] Address: [address] [place] [address] Performed By: #### 2 4356-8 ####[facility] LABCLIA [id number] [place] [address] [place] RBC LM.HPF (Urine sed) [#/Area] 0-2 /HPF Normal 0-2 /HPF [facility] Comment on above: Order Comment: Speci men Type: URINE SPECIMENOrdering Facility: [facility] Address: [address] [place] [address] Performed By: #### 2 4356-8 ####[facility] LABIA [id number] [place] [address] [place] Specific gravity (U) [Rel density] 1.019 Normal 1.005-1.030 [facility] Comment on above: Order Comment: Speci men Type: URINE SPECIMENOrdering Facility: [facility] Address: [address] [place] [address] Performed By: #### 2 4356-8 ####[facility] LABCLIA [id number] [place] [address] [place] Urobilinogen Ql (U) 0.2 EU/dL Normal 0.2-1.0 EU/dL Cl [facility] Comment on above: Order Comment: Speci men Type: URINE SPECIMENOrdering Facility: [facility] Address: [address] [place] [address] Performed By: #### 2 4356-8 ####[facility] LABIA [id number] [place] [address] [place] WBC LM.HPF (Urine sed) [#/Area] 11-20 /HPF Abnormal 0-5 /HPF [facility] Comment on above: Order Comment: Speci men Type: URINE SPECIMENOrdering Facility: [facility] Address: [address] [place] [address] Performed By: #### 2 4356-8 ####[facility] LABCLIA [id number] [place] [address] [place] Fungal Screen, YeastOrdered By: Nancy Zarco on 09-24-2023 Yeast Org specific cx Ql (Unsp spec) Regla albicans Abnormal [facility] Comment on above: Quantity is 1 colony only Yeast Org specific cx Ql (Un sp spec)Ordered By: Nancy Zarco on 09-24-2023 Interpretation and review of laboratory results Abnormal [facility] LUNG DIFFUSION CAPACITY (THEO O)on 08-31-2023 DLCO (ml/min/mmHg) 12.36 ml/min/mmHg 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 Start of test and EOFE criteria met. Current ATS/ERS acceptability and repeatability standards for DLCO met with 2 acceptable maneuvers. DLCO is hemoglobin corrected. Hemoglobin obtained from [facility] on 08/31/23.//JR IMPRESSION: Spirometry shows no obstruction.The reduced FVC suggests restriction. Recommend lung volumes if clinically indicated. The diffusing capacity is moderately reduced. Electronically Signed On 08-31-2023 16:00:44 EDT by Beatrice Miguel MD ID: [id number] Name: TAMY VAZQUEZ Race: Other Ht: 63.39 in Wt: 106.04 lbs Age: 43 Gender: Female : 1980 Dx: Other specified interstitial pulmonary diseases Smoking Hx: Non-smoker Doctor: ALAN RENE Test Date: 08/31/2023 Site[facility] Tech: Rai Parker PRE-BRONCH POST-BRONCH Pre LLN Pred ULN %Pred Post %Pred %Chg SPIROMETRY FVC (L) 1.91 2.50 3.29 4.11 58 FEV1 (L) 1.63 2.05 2.73 3.37 59 FEV1/FVC 0.85 0.71 0.82 0.91 103 PEF L/s (L/sec) 5.63 5.14 6.82 8.50 82 FEF50 (L/sec) 2.26 2.08 3.69 5.30 61 FIF50 (L/sec) 2.64 FEF50/FIF50 0.86 90-100 FIVC (L) 1.88 NEP96-31 (L/sec) 1.93 1.68 2.84 4.27 68 Time (sec) 3.58 FET PEF (sec) 0.08 EDE (L) 0.10 Vol Extrap % (%) 5 LUNG DIFFUSION DLCOunc (ml/min/mmHg) 12.36 17.06 23.23 29.40 53 VA (L) 2.98 3.86 4.96 6.06 60 DLunc/VA (ml/min/mmHg/L) 4.15 3.42 4.73 6.05 87 DLCOcor (ml/min/mmHg) 12.36 16.55 22.71 28.88 54 DLcor/VA (ml/min/mmHg/L) 4.15 4.58 90 BHT (sec) 9.93 IVC (L) 1.78 Hgb (gm/dL) 12.70 12-18 Comments: Current ATS/ERS acceptability and repeatability standards for spirometry met. Start of test and EOFE criteria met. Current ATS/ERS acceptability and repeatability standards for DLCO met with 2 acceptable maneuvers. DLCO is hemoglobin corrected. Hemoglobin obtained from [facility] on 08/31/23.// PULMONARY FUNCTION LAB [facility] 36on 08-17-2023 36 We have been unable to reach your patient to schedule their testing. 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 Normal glenohumeral alignment. Normal, clavicular alignment. No fracture or dislocation. DIVISION OF RADIOLOGY Provider, [facility] - 03/18/2023 * * *Final Report* * * DATE OF EXAM: Mar 18 2023 4:39PM WOX 5247 - XR SCAPULA 2V AP/LAT LT / PROCEDURE REASON: Acute pain of left shoulder * * * * Physician Interpretation * * * * Left scapula: CLINICAL INDICATION: Left shoulder pain FINDINGS: 2 views were obtained. Normal glenohumeral alignment. Normal, clavicular alignment. No fracture or dislocation. 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: [facility] Transcribe Date/Time: Mar 18 2023 4:42P Dictated by : CLAUDIA GROVES MD This examination was interpreted and the report reviewed and electronically signed by: CLAUDIA GROVES MD on Mar 18 2023 4:43PM EST [facility] Radiology Study observation (narrative) [facility] XR Scapula - left AP and Lat eralOrdered By: [facility] Provider on 03-18-2023 [facility] XR MODIFIED BARIUM SWALLOW W SPEECH THERAPYon 02-22-[address] [facility] [address] CHEST WO IVCONon 01-08-20 23 [facility] CHEST 2 VIEW PA AND LATon CHEST 2 VIEW PA AND LAT Patient Name: TAMY VAZQUEZ STUDY: CHEST 2 VIEW PA AND LAT; 12/23/2022 12:41 pm INDICATION: wheezing. COMPARISON: None. ACCESSION NUMBER(S): [id number] ORDERING CLINICIAN: TAYO RODRIGUEZ TECHNIQUE: 2 radiographs of the chest were performed. FINDINGS: The heart is of normal size. There is bilateral bronchial wall thickening and mild peribronchial density in the lung bases and upper lobes. There is no airspace consolidation, pleural effusion, or pneumothorax. There is air lucency overlying the at the midline and to the right of midline just anterior to the spine on the lateral radiograph. This may represent an air-filled distended lower esophagus though pneumomediastinum can not be excluded. The osseous structures are intact. IMPRESSION: Bronchial wall thickening and faint peribronchial density is identified in both lungs suspicious for reactive airway disease and mild peribronchial versus. There is no airspace consolidation. Localized air density is identified overlying the heart at the midline and to the right of midline. This could represent an air-filled distended lower esophagus though pneumoperitoneum can not be excluded. This can be further assessed with CT examination is clinically warranted. Electronically signed by: CAROL MATHEW MD [facility] XR Chest 2 Viewson 3 Bronchial wall thickening and faint peribronchial density is identified in both lungs suspicious for reactive airway disease and mild peribronchial versus. There is no airspace consolidation. Localized air density is identified overlying the heart at the midline and to the right of midline. This could represent an air-filled distended lower esophagus though pneumoperitoneum can not be excluded. This can be further assessed with CT examination is clinically warranted. [facility] Interpreted By: CAROL MATHEW MD Patient Name: TAMY VAZQUEZ STUDY: [facility] 2 VIEW PA AND LAT; 12/23/2022 12:41 pm INDICATION: wheezing. COMPARISON: None. ACCESSION NUMBER(S): [id number] ORDERING CLINICIAN: TAYO RODRIGUEZ TECHNIQUE: 2 radiographs of the chest were performed. FINDINGS: The heart is of normal size. There is bilateral bronchial wall thickening and mild peribronchial density in the lung bases and upper lobes. There is no airspace consolidation, pleural effusion, or pneumothorax. There is air lucency overlying the at the midline and to the right of midline just anterior to the spine on the lateral radiograph. This may represent an air-filled distended lower esophagus though pneumomediastinum can not be excluded. The osseous structures are intact. [facility] Christina Mathew MD - 12/23/2022 Interpreted By: CAROL MATHEW MD Patient Name: TAMY VAZQUEZ STUDY: TH CHEST 2 VIEW PA AND LAT; 12/23/2022 12:41 pm INDICATION: wheezing. COMPARISON: None. ACCESSION NUMBER(S): [id number] ORDERING CLINICIAN: TAYO RODRIGUEZ TECHNIQUE: 2 radiographs of the chest were performed. FINDINGS: The heart is of normal size. There is bilateral bronchial wall thickening and mild peribronchial density in the lung bases and upper lobes. There is no airspace consolidation, pleural effusion, or pneumothorax. There is air lucency overlying the at the midline and to the right of midline just anterior to the spine on the lateral radiograph. This may represent an air-filled distended lower esophagus though pneumomediastinum can not be excluded. The osseous structures are intact. IMPRESSION: Bronchial wall thickening and faint peribronchial density is identified in both lungs suspicious for reactive airway disease and mild peribronchial versus. There is no airspace consolidation. Localized air density is identified overlying the heart at the midline and to the right of midline. This could represent an air-filled distended lower esophagus though pneumoperitoneum can not be excluded. This can be further assessed with CT examination is clinically warranted. [facility] Work Phone: Radiology Study observation (narrative) [facility] Work Phone: XR Chest 2 ViewsOrdered By: Carol Mathew on 12-23-2022 [facility] Work Phone: LUNG DIFFUSION CAPACITY (THEO O)on 12-13-2022 DLCO (ml/min/mmHg) 9.98 ml/min/mmHg [facility] DLCO/VA (ml/min/mmHg/L) 3.86 ml/min/mmHg/L [facility] DLCOcor (ml/min/mmHg) 10.04 ml/min/mmHg [facility] EJW93-83% PRE (L/S) 1.71 L/S [facility] FEV1 PRE (L) 1.43 L [facility] FEV1/FVC PRE (%) 87 % [facility] FVC PRE (L) 1.64 L [facility] PEF PRE (L/S) 3.98 L/S [facility] VA (L) 2.59 L [facility] SPIROMETRY BASELINE ONLYon 0 12-13-2022 [facility] INFLUENZA A/B, COVID 2019 PC R,SYMPTOMATICon 06-30-2022 SARS-CoV-2 (COVID-19) RNA SARA+probe Ql (Unsp spec) Not detected Normal Not Detected [facility] Comment on above: Result Comment: . This assay is designed to detect the ORF1a/b and E genes of SARS-CoV-2 via nucleic acid amplification. A Not Detected result does not preclude 2019-nCoV infection since the adequacy of sample collection and/or low viral burden may result in presence of viral nucleic acids below the clinical sensitivity of this test method. Fact sheet for providers: https://www.fda.gov/media/579495/download Fact sheet for patients: https://www.fda.gov/media/962365/download This test has received FDA Emergency Use Authorization (EUA) and has been verified for use by [facility] ([facility]). This test is only authorized for the duration of time that circumstances exist to justify the authorization of the emergency use of in vitro diagnostic tests for the detection of SARS-CoV-2 virus and/or diagnosis of COVID-19 infection under section 564(b)(1) of the Act, 21 U.S.C. 360bbb-3(b)(1), unless the authorization is terminated or revoked sooner. [facility] is certified under CLIA-88 as qualified to perform high complexity testing. Testing is performed in the [facility] laboratories located at [address] [place] [address]. Performed By: #### C OINP #### [address] [place] [address] INFLUENZA A, PCR Not detected Normal Not Detected [facility] Comment on above: Result Comment: Resp iratory virus testing is performed routinely by PCR for Influenza A/B and RSV. If Influenza and RSV PCR are negative, testing for parainfluenza 1,2,3 viruses and adenovirus is routinely performed for oncology inpatients and intensive care unit patients at [facility] and is available on request on other patients by calling Laboratory Client Services at [phone]. Not Detected results do not preclude Influenza A/B or RSV infections since the adequacy of sample collection or low viral burden may impact the clinical sensitivity of this test method. Performed By: #### C OINP #### [facility] [address] [place] [address] INFLUENZA B, PCR Not detected Normal Not Detected [facility] Comment on above: Result Comment: Resp iratory virus testing is performed routinely by PCR for Influenza A/B and RSV. If Influenza and RSV PCR are negative, testing for parainfluenza 1,2,3 viruses and adenovirus is routinely performed for oncology inpatients and intensive care unit patients at [facility] and is available on request on other patients by calling Laboratory Client Services at [phone] Not Detected results do not preclude Influenza A/B or RSV infections since the adequacy of sample collection or low viral burden may impact the clinical sensitivity of this test method. Performed By: #### C OINP #### [facility] [address] [place] [address] Influenza virus A and B and SARS-CoV-2 (COVID-19) identified SARA+probe Nom (Resp)on 06-30-2022 FLUAV RNA SARA+probe Ql (Resp) Not detected Not Detected [facility] Comment on above: Respiratory virus te sting is performed routinely by PCR for Influenza A/B and RSV. If Influenza and RSV PCR are negative, testing for parainfluenza 1,2,3 viruses and adenovirus is routinely performed for oncology inpatients and intensive care unit patients at [facility] and is available on request on other patients by calling Laboratory Client Services at [phone]. Not Detected results do not preclude Influenza A/B or RSV infections since the adequacy of sample collection or low viral burden may impact the clinical sensitivity of this test method. FLUBV RNA SARA+probe Ql (Resp) Not detected Not Detected [facility] Comment on above: Respiratory virus te sting is performed routinely by PCR for Influenza A/B and RSV. If Influenza and RSV PCR are negative, testing for parainfluenza 1,2,3 viruses and adenovirus is routinely performed for oncology inpatients and intensive care unit patients at [facility] and is available on request on other patients by calling Laboratory Client Services at [phone] Not Detected results do not preclude Influenza A/B or RSV infections since the adequacy of sample collection or low viral burden may impact the clinical sensitivity of this test method. SARS-CoV-2 (COVID-19) RNA SARA+probe Ql (Unsp spec) Not detected Not Detected [facility] Comment on above: . This assay is designed to detect the ORF1a/b and E genes of SARS-CoV-2 via nucleic acid amplification. A Not Detected result does not preclude 2019-nCoV infection since the adequacy of sample collection and/or low viral burden may result in presence of viral nucleic acids below the clinical sensitivity of this test method. Fact sheet for providers: https://www.fda.gov/media/220289/download Fact sheet for patients: https://www.fda.gov/media/060109/download This test has received FDA Emergency Use Authorization (EUA) and has been verified for use by [facility] ([facility]). This test is only authorized for the duration of time that circumstances exist to justify the authorization of the emergency use of in vitro diagnostic tests for the detection of SARS-CoV-2 virus and/or diagnosis of COVID-19 infection under section 564(b)(1) of the Act, 21 U.S.C. 360bbb-3(b)(1), unless the authorization is terminated or revoked sooner. [facility] is certified under CLIA-88 as qualified to perform high complexity testing. Testing is performed in the [facility] laboratories located at [address] [place] [address]. [facility] RSV PCRon 06-30-2022 RSV,PCR Not detected Normal Not Detected [facility] Comment on above: Result Comment: Resp iratory virus testing is performed routinely by PCR for Influenza A/B and RSV. If Influenza and RSV PCR are negative, testing for parainfluenza 1,2,3 viruses and adenovirus is routinely performed for oncology inpatients and intensive care unit patients at [facility] and is available on request on other patients by calling Laboratory Client Services at [phone]. Not Detected results do not preclude Influenza A/B or RSV infections since the adequacy of sample collection or low viral burden may impact the clinical sensitivity of this test method. Performed By: #### R SVPC #### [facility] [address] [place] [address] RSV RNA SARA+probe Ql (Resp) Not detected Not Detected [facility] Comment on above: Respiratory virus te sting is performed routinely by PCR for Influenza A/B and RSV. If Influenza and RSV PCR are negative, testing for parainfluenza 1,2,3 viruses and adenovirus is routinely performed for oncology inpatients and intensive care unit patients at [facility] and is available on request on other patients by calling Laboratory Client Services at [phone]. Not Detected results do not preclude Influenza A/B or RSV infections since the adequacy of sample collection or low viral burden may impact the clinical sensitivity of this test method. RSV RNA SARA+probe Ql (Resp)o n 06-30-2022 [facility] INFLUENZA A/B, COVID 2019 PC R,SYMPTOMATICon 06-29-2022 Lab Specimen Source Normal [facility] Comment on above: Performed By: #### C OINP #### [facility] [address] [place] [address] Performed By: #### R SVPC #### [facility] [address] [place] [address] No Panel Informationon 06-29 Interpretation and review of laboratory results Normal [facility] Work Phone: [facility] Work Phone: POCT Infectious mononucleosi s antibody manually resultedon 06-29-2022 POC Rapid Mccracken Negative Negative [facility] Work Phone: POCT rapid strep A manually resultedon 06-29-2022 POC Rapid Strep Negative Negative [facility] Work Phone: CT Neck WO contraston 2022 * There is no eviden ce of mass, cyst or adenopathy in the neck. THIS EXAMINATION WAS INTERPRETED AT [facility] Interpreted By: SUKH PEARSON MD Patient Name: VAZQUEZCONI SCOTTINI STUDY: CT NECK W/O CONTRAST; 06/23/2022 1:16 pm INDICATION: multiple hard lymph nodes ant cervical, Failed abx. COMPARISON: None. ACCESSION NUMBER(S): [id number] ORDERING CLINICIAN: TAYO RODRIGUEZ TECHNIQUE: Noncontrast CT was performed from the skullbase to the thoracic inlet and multiplanar reconstructions were made. FINDINGS: * The visualized paranasal sinuses nasopharynx and oropharynx are unremarkable. *The major salivary glands are normal. *There is no measurable cervical lymphadenopathy. *The larynx and related cartilages are normal. *The thyroid gland is normal. *The thoracic inlet is normal. [facility] Sukh Pearson MD - 06/23/2022 Interpreted By: SUKH PEARSON MD Patient Name: TAYLOR TAMY STUDY: CT NECK W/O CONTRAST; 06/23/2022 1:16 pm INDICATION: multiple hard lymph nodes ant cervical, Failed abx. COMPARISON: None. ACCESSION NUMBER(S): [id number] ORDERING CLINICIAN: TAYO RODRIGUEZ TECHNIQUE: Noncontrast CT was performed from the skullbase to the thoracic inlet and multiplanar reconstructions were made. FINDINGS: * The visualized paranasal sinuses nasopharynx and oropharynx are unremarkable. *The major salivary glands are normal. *There is no measurable cervical lymphadenopathy. *The larynx and related cartilages are normal. *The thyroid gland is normal. *The thoracic inlet is normal. IMPRESSION: * There is no evidence of mass, cyst or adenopathy in the neck. THIS EXAMINATION WAS INTERPRETED AT [facility] Work Phone: CT Neck WO contrastOrdered B y: Sukh Pearson on 06-23-2022 [facility] Work Phone: NR CT NECK W/O CONTRASTon NR CT NECK W/O CONTRAST Patient Name: VAZQUEZTAMY SCOTT STUDY: CT NECK W/O CONTRAST; 06/23/2022 1:16 pm INDICATION: multiple hard lymph nodes ant cervical, Failed abx. COMPARISON: None. ACCESSION NUMBER(S): [id number] ORDERING CLINICIAN: TAYO RODRIGUEZ TECHNIQUE: Noncontrast CT was performed from the skullbase to the thoracic inlet and multiplanar reconstructions were made. FINDINGS: * The visualized paranasal sinuses nasopharynx and oropharynx are unremarkable. *The major salivary glands are normal. *There is no measurable cervical lymphadenopathy. *The larynx and related cartilages are normal. *The thyroid gland is normal. *The thoracic inlet is normal. IMPRESSION: * There is no evidence of mass, cyst or adenopathy in the neck. THIS EXAMINATION WAS INTERPRETED AT [facility] Electronically signed by: SUKH PEARSON MD Normal [facility] CT Neck WO contraston 2022 Radiology Study observation (narrative) [facility] Work Phone: TSH BLDon 06-17-2022 TSH Qn 1.880 m[IU]/L 0.270 - 4.200 mIU/L [facility] VITAMIN D 25 HYDROXYon 06-17 25-hydroxyvitamin D3 [Mass/Vol] 54.2 ng/mL 31.0 - 80.0 ng/mL [facility] LUNG DIFFUSION CAPACITY (THEO O)on 06-01-2022 DLCO (ml/min/mmHg) 11.03 ml/min/mmHg [facility] DLCO/VA (ml/min/mmHg/L) 3.80 ml/min/mmHg/L [facility] DLCOcor (ml/min/mmHg) 11.32 ml/min/mmHg [facility] XPV52-75% PRE (L/S) 1.54 L/S [facility] FEV1 PRE (L) 1.59 L [facility] FEV1/FVC PRE (%) 81 % [facility] FVC PRE (L) 1.95 L [facility] PEF PRE (L/S) 5.64 L/S [facility] VA (L) 2.90 L [facility] SPIROMETRY BASELINE ONLYon 0 06-01-2022 [facility] No Panel Informationon 05-31 [facility] Laboratory - Coagulationon 0 04-30-2022 INR Coag (Bld) [Relative time] 3.0 {INR} -[facility] Work Phone: No Panel Informationon 04-30 1 wk [facility] Work Phone: Pt self adjusts per Dr Rodriguez [facility] Work Phone: US LEG VEIN DVT UNL VAS LABo n 02-17-2022 [facility] Hepatic function 2000 panelo n 02-16-2022 Albumin [Mass/Vol] 4.4 g/dL 3.9 - 4.9 g/dL [facility] ALP [Catalytic activity/Vol] 96 U/L 34 - 123 U/L [facility] ALT [Catalytic activity/Vol] 49 U/L High 7 - 38 U/L [facility] AST [Catalytic activity/Vol] 42 U/L High 13 - 35 U/L [facility] Bilirubin [Mass/Vol] 0.8 mg/dL 0.2 - 1 .3 mg/dL [facility] Bilirubin.conjugated [Mass/Vol] <0.2 mg/dL [facility] Protein [Mass/Vol] 8.5 g/dL High 6.3 - 8.0 g/dL [facility] CBC W Auto Differential pane l (Bld)on 02-15-2022 Basophils (Bld) [#/Vol] 0.03 10*3/uL <0.11 k/uL [facility] Basophils/100 WBC (Bld) 0.7 % [facility] Differential cell count method Nom (Bld) Auto [facility] Eosinophils (Bld) [#/Vol] 0.08 10*3/uL <0.46 k/uL [facility] Eosinophils/100 WBC (Bld) 1.9 % [facility] Erythrocyte distribution width (RBC) [Ratio] 14.3 % 11.5 - 15.0 % [facility] Hematocrit (Bld) [Volume fraction] 38.4 % 36.0 - 46.0 % [facility] Hemoglobin (Bld) [Mass/Vol] 12.6 g/dL 11.5 - 15.5 g/dL [facility] Immature granulocytes (Bld) [#/Vol] <0.10 k/uL [facility] Immature granulocytes/100 WBC (Bld) 0.2 % [facility] Lymphocytes (Bld) [#/Vol] 1.11 10*3/uL 1.00 - 4.00 k/uL [facility] Lymphocytes/100 WBC (Bld) 26.7 % [facility] MCH (RBC) [Entitic mass] 29.4 pg 26.0 - 34.0 pg [facility] MCHC (RBC) [Mass/Vol] 32.8 g/dL 30.5 - 36.0 g/dL [facility] MCV (RBC) [Entitic vol] 89.5 fL 80.0 - 100.0 fL [facility] Monocytes (Bld) [#/Vol] 0.60 10*3/uL <0.87 k/uL [facility] Monocytes/100 WBC (Bld) 14.5 % [facility] Neutrophils (Bld) [#/Vol] 2.32 10*3/uL 1.45 - 7.50 k/uL [facility] Neutrophils/100 WBC (Bld) 56.0 % [facility] Nucleated RBC (Bld) [#/Vol] <0.01 k/uL [facility] Nucleated RBC/100 WBC (Bld) [Ratio] 0.0 /100 WBC [facility] Platelet mean volume (Bld) [Entitic vol] 9.8 fL 9.0 - 12.7 fL [facility] Platelets (Bld) [#/Vol] 168 10*3/uL 150 - 400 k/uL [facility] RBC (Bld) [#/Vol] 4.29 10*6/uL 3.90 - 5.2 0 m/uL [facility] WBC (Bld) [#/Vol] 4.15 10*3/uL 3.70 - 11. 00 k/uL [facility] CT CHEST WO IVCONon 01-19-20 [facility] LUNG DIFFUSION CAPACITY (THEO O)on 12-14-2021 DLCO (ml/min/mmHg) 10.87 ml/min/mmHg [facility] DLCO/VA (ml/min/mmHg/L) 3.78 ml/min/mmHg/L [facility] DLCOcor (ml/min/mmHg) 11.27 ml/min/mmHg [facility] HSP16-73% PRE (L/S) 1.74 L/S [facility] FEV1 PRE (L) 1.62 L [facility] FEV1/FVC PRE (%) 82 % [facility] FVC PRE (L) 1.99 L [facility] PEF PRE (L/S) 5.25 L/S [facility] VA (L) 2.88 L [facility] Laboratory - Coagulationon 0 10-28-2021 INR Coag (Bld) [Relative time] 2.7 {INR} [facility] Work Phone: No Panel Informationon 10-28 Yes [facility] Work [facility]: 2 weeks [facility] Work Phone: pt self adjusts [facility] Work Phone: 2.5 MWF, 3 TThSatSun [facility] Work Phone: Laboratory - Coagulationon 0 10-15-2021 INR Coag (Bld) [Relative time] 2.7 {INR} [facility] Work Phone: INR Coag (Bld) [Relative time] 1.6 {INR} [facility] Work Phone: No Panel Informationon 10-15 Yes [facility] Work Phone: 2 weeks -[facility] Work Phone: same -[facility] Work Phone: pt self adjusts [facility] Work Phone: 2.5 on M,W,F & 3 mg on all other days -[facility] Work Phone: [facility] ([facility]on 07-31-2021 Follow-up visit Diagnoses/Problems Sore throat (462) (J02.9) Orders Sore throat Start: Amoxicillin-Pot Clavulanate 875-125 MG Oral Tablet; TAKE 1 TABLET TWICE DAILY AFTER MEALS Start: Fluconazole 150 MG Oral Tablet; TAKE 1 TABLET 1 TIME ONLY Patient Discussion/Summary start Augmentin Diflucan if any yeast Call if worse or if no improvement NSAIDs/Tylenol prn Decongestants, intranasal corticosteroid and saline. Continue supportive therapy Encouraged her to get a covid test based on symptoms. Chief Complaint sore throat and congestion x 3-4 days. An interactive audio and video telecommunication system which permits real time communications between the patient (at the originating site) and provider (at the distant site) was utilized to provide this telehealth service. Verbal consent was requested and obtained from TAMY VAZQUEZ on this date, 07/31/2021 01:30 PM , for a telehealth visit. History of Present Illness This is a 41 year old female here for symptoms of cough. Nasal congestion: Yes Nasal drainage: Yes Sore throat: Yes Swollen glands: Negative Cough: Yes Productive: yes Color: yellow Blood in cough phlegm: Negative Wheezing: Negative Shortness of breath: Negative Chest pain: Negative Heartburn: Negative Belching: Negative Fever: Negative Recent out of country travel: Negative * Active Problems Acne cystica (706.1) (L70.0) Allergic dermatitis (692.9) (L23.9) Bruising (924.9) (T14.8XXA) COVID-19 virus RNA test result unknown (V01.79) (Z20.822) Encounter for screening for malignant neoplasm of breast (V76.10) (Z12.39) History of DVT (deep vein thrombosis) (V12.51) (Z86.718) Rosacea (695.3) (L71.9) Secondary hypercoagulable state (289.82) (D68.69) Mild intermittent asthma without complication (493.90) (J45.20) Social History Consumes alcohol occasionally (V49.89) (Z78.9) Never smoker Allergies Omnicef Recorded By: Sneha Patricia; 12/11/2020 9:46:26 AM Current Meds Medication NameInstructionReason Accu-Chek Tonia Plus In Vitro StripTEST ONCE DAILY.History of DVT (deep vein thrombosis), Secondary hypercoagulable state Accu-Chek Tonia Plus w/Device Kitpatient to test once fasting in the morningHistory of DVT (deep vein thrombosis), Secondary hypercoagulable state Accu-Chek FastClix LancetsTEST BLOOD SUGAR ONCE A DAYHistory of DVT (deep vein thrombosis), Secondary hypercoagulable state Montelukast Sodium 10 MG Oral Tablettake 1 tablet by mouth at bedtimeMild intermittent asthma without complication Clobetasol Propionate 0.05 % External OintmentAPPLY AND GENTLY MASSAGE INTO AFFECTED AREA(S) TWICE DAILY.Rosacea Ivermectin 1 % External CreamApply to face as directed in the morningRosacea Warfarin Sodium 1 MG Oral TabletTake 2- 2.5 mg and 3 mg alternating every other daySecondary hypercoagulable state Hydroxychloroquine Sulfate 200 MG Oral Tablet Imuran 50 MG Oral Tablet Physical Exam Constitutional: Alert and in no acute distress. Well developed, well nourished. Head and Face: Head and face: Normal. Eyes: Normal external exam. Ears, Nose, Mouth, and Throat: External inspection of ears and nose: Normal. Pulmonary: No respiratory distress. Psychiatric: Judgment and insight: Intact. Mood and affect: Normal. 'Scores and Scales' Signatures Electronically signed by : Tayo Rodriguez MD; Aug 17 2021 11:04PM EST (Author) Normal [facility] - Coagulationon 0 07-21-2021 INR Coag (Bld) [Relative time] 3.0 {INR} [facility] Work [facility]: No Panel Informationon 07-21 Yes [facility]: 1 wk [facility] Work Phone: same [facility] [employer] Work Phone: 2.5 mg M,W,F & 3 mg on all other days [facility] [employer] Work Phone: Laboratory - Coagulationon 0 07-14-2021 INR Coag (Bld) [Relative time] 2.4 {INR} [facility] [employer] Work Phone: No Panel Informationon 07-14 Yes [facility] Work Phone: 1 wk [facility] n Work Phone: same [facility] Work Phone: 2.5 mg on M,W,F & 3 mg on all other days [facility] Work Phone: Mamm - Screening Mammogram w / Tomosynthesison 07-08-2021 MG Breast Screening Please click on the link to view the study images Normal [facility] Work Phone: MG Breast Screening Normal [facility] Work Phone: Laboratory - Coagulationon 0 06-23-2021 INR Coag (Bld) [Relative time] 1.9 {INR} [facility] Work Phone: No Panel Informationon 06-23 Yes [facility] Work Phone: 1 wk [facility] Work Phone: same [facility] Work Phone: 2.5 mg on M,W,F & 3 mg on all other days [facility] Work Phone: Laboratory - Microbiology an d Antimicrobial susceptibilityon 05-01-2021 SARS-CoV-2 (COVID-19) IgG IA.rapid Ql (S/P/Bld) Covid 19 IgG Normal [facility] Work Phone: No Panel Informationon 05-01 View results in Scan jayson Documents link when available. Normal [facility] Work Phone: Laboratory - Coagulationon 0 04-28-2021 INR Coag (Bld) [Relative time] 2.0 {INR} [facility] Work Phone: No Panel Informationon 04-28 Yes [facility] [facility] Work Phone: 2 wks [facility] Work Phone[facility] same [facility] [facility] Work Phone: Alt 2.5 & 3 mg [facility] Work Phone: Office Visit ([facility])on 04-28-2021 Follow-up visit Diagnoses/Problems Secondary hypercoagulable state (289.82) (D68.69) Rosacea (695.3) (L71.9) Mild intermittent asthma without complication (493.90) (J45.20) Acne cystica (706.1) (L70.0) Allergic dermatitis (692.9) (L23.9) COVID-19 virus RNA test result unknown (V01.79) (Z20.822) Orders Allergic dermatitis Start: methylPREDNISolone 4 MG Oral Tablet Therapy Pack; Take as Directed per Packet Instruction COVID-19 virus RNA test result unknown SARS-CoV-2 NUCLEOCAPSID IGG ANTIBODY; Status:Active; Requested for:28Apr2021; Secondary hypercoagulable state Renew: Warfarin Sodium 1 MG Oral Tablet; Take 2- 2.5 mg and 3 mg alternating every other day Patient Discussion/Summary f/u as needed. and for PE Trial of Medrol dose back. Call if no improvement Chief Complaint Per Dr. Rodriguez. An interactive audio and video telecommunication system which permits real time communications between the patient (at the originating site) and provider (at the distant site) was utilized to provide this telehealth service. Verbal consent was requested and obtained from TAMY VAZQUEZ on this date, 04/28/2021 01:30 PM , for a telehealth visit. History of Present Illness Seen Via [employer] Has a left hand index finger. Has been swollen for a few months Raynaud's is under control On Orecea 2 times a day. Soaked with heat Topical steroids are not helping. Also has a bruise on the stomach where she received. using clobetasol and it is no longer raised. now the area has spread. All other systems have been reviewed and are negative for complaint as noted in HPI. Active Problems Acne cystica (706.1) (L70.0) Bruising (924.9) (T14.8XXA) History of DVT (deep vein thrombosis) (V12.51) (Z86.718) Mild intermittent asthma without complication (493.90) (J45.20) Rosacea (695.3) (L71.9) Secondary hypercoagulable state (289.82) (D68.69) Social History Consumes alcohol occasionally (V49.89) (Z78.9) Never smoker Allergies Omnicef Recorded By: Sneha Patricia; 12/11/2020 9:46:26 AM Current Meds Medication NameInstructionReason Accu-Chek Tonia Plus In Vitro StripTEST ONCE DAILY.History of DVT (deep vein thrombosis), Secondary hypercoagulable state Accu-Chek Tonia Plus w/Device Kitpatient to test once fasting in the morningHistory of DVT (deep vein thrombosis), Secondary hypercoagulable state Accu-Chek FastClix LancetsTEST BLOOD SUGAR ONCE A DAYHistory of DVT (deep vein thrombosis), Secondary hypercoagulable state Montelukast Sodium 10 MG Oral TabletTAKE 1 TABLET AT BEDTIME.Mild intermittent asthma without complication Sertraline HCl - 25 MG Oral TabletTAKE 1 TABLET EVERY DAYPMH: Chronic major depressive disorder, recurrent episode Clobetasol Propionate 0.05 % External OintmentAPPLY AND GENTLY MASSAGE INTO AFFECTED AREA(S) TWICE DAILY.Rosacea Ivermectin 1 % External CreamApply to face as directed in the morningRosacea Warfarin Sodium 1 MG Oral Tablettake one tablet daily in addition to 5mg doseSecondary hypercoagulable state Hydroxychloroquine Sulfate 200 MG Oral Tablet Imuran 50 MG Oral Tablet Physical Exam Constitutional: Alert and in no acute distress. Well developed, well nourished. Head and Face: Head and face: Normal. Eyes: Normal external exam. Ears, Nose, Mouth, and Throat: External inspection of ears and nose: Normal. Neck: No neck mass was observed. Supple. Pulmonary: No respiratory distress. Skin: 3 inch red area on the LLQ. Psychiatric: Judgment and insight: Intact. Mood and affect: Normal. 'Scores and Scales' Signatures Electronically signed by : Tayo Rodriguez MD; Apr 28 2021 2:38PM EST (Author) Normal [facility] Office Visit (Family Minerva marte)on 12-11-2020 Follow-up visit Diagnoses/Problems Acne cystica (706.1) (L70.0) Bruising (924.9) (T14.8XXA) Secondary hypercoagulable state (289.82) (D68.69) Chronic major depressive disorder, recurrent episode (296.30) (F33.9) Orders Acne cystica Stop: Spironolactone 25 MG Oral Tablet Chronic major depressive disorder, recurrent episode Start: Sertraline HCl - 25 MG Oral Tablet; TAKE 1 TABLET EVERY DAY SocHx: Never smoker Tobacco Use Screening; Status:Complete; Done: [id number] Patient Discussion/Summary We will start spironolactone 25 mg daily. 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 Discussed in detail that bruising is normal and also that broken capillaries are due to may be fragility of her skin and possibly due to scratching at it and now this is permanent. Hopefully they will improve over time and she is asked not to keep pushing at the area. F/U for PE in Apr Chief Complaint patient to establish. History of Present Illness This is a 40-year-old female who is here today with concerns about acne due to hormonal changes. She is going through menopause and ever since then she has had cystic acne which does not seem to be going away. Has autoimmune disease who she is seeing a squad boss and lead ramp service man and an electrocardiograph repairer for. 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 Is chronically on Coumadin to prevent blood clots. Also has a rash on her right breast. Rash seems to have appeared a few weeks ago and is not disappearing. Has no itching or any injuries. No lumps or problems with her mammogram. She has a similar lesion on her left thigh. No other complaints. Review of Systems Constitutional: no chills, no fever and no night sweats. Eyes: no blurred vision and no eyesight problems. ENT: no hearing loss, no nasal congestion, no nasal discharge, no hoarseness and no sore throat. Neck: no mass(es) and no swelling. Cardiovascular: no chest pain, no intermittent leg claudication, no lower extremity edema, no palpitations and no syncope. Respiratory: no cough, no shortness of breath during exertion, no shortness of breath at rest and no wheezing. Gastrointestinal: no abdominal pain, no blood in stools, no constipation, no diarrhea, no melena, no nausea, no rectal pain and no vomiting. Genitourinary: no dysuria, no change in urinary frequency, no urinary hesitancy, no feelings of urinary urgency and no vaginal discharge. Musculoskeletal: no arthralgias, no back pain and no myalgias. Integumentary: no new skin lesions and no rashes. Neurological: no difficulty walking, no headache, no limb weakness, no numbness and no tingling. Psychiatric: no anxiety, no depression, no anhedonia and no substance use disorders. Endocrine: no recent weight gain and no recent weight loss. Hematologic/Lymphatic: no tendency for easy bruising and no swollen glands. Social History Consumes alcohol occasionally (V49.89) (Z78.9) Never smoker Allergies Omnicef Recorded By: Sneha Patricia; 12/11/2020 9:46:26 AM Current Meds Medication NameInstructionReason Hydroxychloroquine Sulfate 200 MG Oral Tablet Imuran 50 MG Oral Tablet Montelukast Sodium 10 MG Oral Tablet Warfarin Sodium 3 MG Oral TabletTAKE 1 TABLET DAILY DIRECTED. Vitals Vital Signs Recorded: [id number] 09:39AM Yxmxxlaymag16.5 F Heart Rate64 Lsbcnlry106 Ewkrokhvb36 Height5 ft 4 in Rztaza495 lb BMI Yczsszkxcz59.74 kg/m2 BSA Calculated1.55 Physical Exam Constitutional: Alert and in no acute distress. Well developed, well nourished. Eyes: Normal external exam. Pupils were equal in size, round, reactive to light (PERRL) with normal accommodation and extraocular movements intact (EOMI). Ears, Nose, Mouth, and Throat: External inspection of ears and nose: Normal. Hearing: Normal. Nasal mucosa, septum, and turbinates: Normal. Lips, teeth, and gums: Normal. Oropharynx: Normal. Neck: No neck mass was observed. Supple. Thyroid not enlarged and there were no palpable thyroid nodules. Cardiovascular: Heart rate and rhythm were normal, normal S1 and S2, no gallops, no murmurs and no pericardial rub. Pedal pulses: Normal. No peripheral edema. Pulmonary: No respiratory distress. Clear bilateral breath sounds. Abdomen: Soft nontender; no abdominal mass palpated. No organomegaly. Musculoskeletal: No joint swelling seen, normal movements of all extremities. Range of motion: Normal. Muscle strength/tone: Normal. Skin: Normal skin color and pigmentation, normal skin turgor, and no rash. On inspection patient appears to have bruising on the right breast and left thigh. Seems to have broken capillaries from possible itching or a previous rash that is not seen today. When patient lays down with the area of concern disappears. Does have multiple cystic acne lesions on her chin and below the nose. Psychiatric: Judgment and insight: Intact (more content not included)... [facility] Telephone (SPPRAD) -------- TAMY VAZQUEZ ( ) 1980 F Date Time Provider Department 07/04/20 ALAN RENE SPPRAD During your visit today, we recorded the following information about you: Alan Rene MD 07/04/2020 11:39 AM Signed patient stopped taking cellcept-worried about side effects-- Talked to her -reiterated need for medication given severity of lung disease in a young patient with MCTD-- fup next week-will rediscusse cellcept Allergies As of Date: 07/04/2020 Noted Allergy Reaction AMERIGEL (ZINC ACETATE) 08/30/2006 Comments: Daniel burning at area FLAGYL (METRONIDAZOLE) 01/17/2008 5 - Intolerance 8 - GI Upset Comments: Nausea, fatigue, poor appetite Date Reviewed: 05/19/2020 Reviewed by: Siobhan Santoro Ma - Fully Assessed Reason for Visit: Question [1327] Prescriptions as of 07/04/2020 Sig: MYCOPHENOLATE SODIUM 360 MG T* Take 1 tablet by mouth twice * MYCOPHENOLATE MOFETIL 500 MG * Take 1 tablet by mouth twice * CELECOXIB 200 MG CAPSULE Take 200 mg by mouth once joaquin* WARFARIN 1 MG TABLET take 2 AND 1/2 tablets by mouth* WARFARIN 2 MG TABLET Take 1.5 tablets by mouth joaquin* MONTELUKAST 10 MG TABLET 1 tablet ERNESTINE ORAL Take by mouth. OMEPRAZOLE 20 MG TABLET,DELAY* Take 1 tablet by mouth once d* DOCUSATE SODIUM 100 MG CAPSULE Take 1 capsule by mouth twice* CALCIUM CITRATE + D ORAL Take 1 tablet by mouth once d* PANTOPRAZOLE 40 MG TABLET,DEL* TAKE 1 TABLET BY MOUTH ONCE A* MULTIVITAMIN TABLET Take 1 tablet by mouth once d* DOXYCYCLINE MONOHYDRATE 40 MG* Take 40 mg by mouth once robby* HYDROXYCHLOROQUINE 200 MG TAB* Take 200 mg by mouth once joaquin* Problem List As Of Date 07/04/2020 Noted Resolved ABNORMAL THYROID FUNCT STUDY [R94.6] 05/29/2004 Blood clotting disorder (HCC) [D68.9] 06/11/2005 ANEMIA NOS [D64.9] 06/11/2005 PHLEBITIS INTRCRAN SINUS [G08] 06/11/2005 JOINT PAIN-HAND [M25.549] 04/12/2006 OPEN WOUND FINGER-COMPL [S61.209A] 04/12/2006 ONYCHIA OF TOE [L03.039] 08/16/2006 THROMBOPHLEBITIS NEC [I80.8] 05/12/2007 RAYNAUD'S SYNDROME [I73.00] DERMATOPHYTOSIS OF NAIL [B35.1] 06/15/2007 CERVICALGIA [M54.2] 11/09/2007 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 Nasal crusting [J34.89] 06/19/2014 More... Acute deep vein thrombosis (DVT) of right upper*04/30/2015 Metrorrhagia [N92.1] 02/08/2018 More... Pelvic pain in female [R10.2] 02/08/2018 More... Abdominal bloating [R14.0] 02/08/2018 More... Uterine polyp [N84.0] 02/08/2018 More... Premature ovarian failure [E28.39] 07/18/2019 Hx of cerebral venous sinus thrombosis [Z86.718]07/18/2019 Encounter Status:Closed by ALAN RENE MD on 07/04/20 [facility] Clinical Summary: HMSPatient IDon 08-29-2019 [facility] Work Phone: Culture Urine [place] 04-16-20 19 Culture Urine Qnt Culture Observations: No growth (<1,000 CFU/mL) Susceptibility Data: --- [facility] Comment on above: Order Comment: SUBHASH juarez erformed at additional charge when indicated Performed By: #### C DAGO #### [facility] [address] [place], [place] [id number] Vital Signs Date Time Vital Sign Value Performing Clinician Facility 12-20-2024 08:29-0400 Body height 160 cm Tayo Rodriguez MD Work Phone: [facility] 12-20-2024 08:29-0400 Body mass index (BMI) [Ratio] 20.41 kg/m2 Tayo Rodriguez MD Work Phone: [facility] 12-20-2024 08:29-0400 Body temperature 97.9 [degF] Tayo Rodriguez MD Work Phone: [facility] 12-20-2024 08:29-0400 Body weight 52.25 kg Tayo Rodriguez MD Work Phone: [facility] 12-20-2024 08:29-0400 Diastolic blood pressure 67 mm[Hg] Tayo Rodriguez MD Work Phone: [facility] 12-20-2024 08:29-0400 Heart rate 82 /min Tayo Rodriguez MD Work Phone: [facility] 12-20-2024 08:29-0400 SaO2% (BldA) [Mass fraction] 95 % Tayo Rodriguez MD Work Phone: [facility] 12-20-2024 08:29-0400 Systolic blood pressure 95 mm[Hg] Tayo Rodriguez MD Work Phone: [facility] 11-19-2024 09:44-0400 Body temperature 97.2 [degF] Treatment Wstr Work Phone: [facility] 11-19-2024 09:44-0400 Diastolic blood pressure 65 mm[Hg] Treatment Wstr Work Phone: [facility] 11-19-2024 09:44-0400 Heart rate 74 /min Treatment Wstr Work Phone: [facility] 11-19-2024 09:44-0400 SaO2% (BldA) [Mass fraction] 99 % Treatment Wstr Work Phone: [facility] 11-19-2024 09:44-0400 Systolic blood pressure 99 mm[Hg] Treatment Wstr Work Phone: [facility] 10-31-2024 14:59-0400 Body height 160.5 cm Carmella Cabrera APRN.MALE INFERTILITY SPECIALIST Work Phone: [facility] 10-31-2024 14:59-0400 Body mass index (BMI) [Ratio] 20.43 kg/m2 Carmella Cabrera APRN.MALE INFERTILITY SPECIALIST Work Phone: [facility] 10-31-2024 14:59-0400 Body weight 52.62 kg Carmella Cabrera APRN.MALE INFERTILITY SPECIALIST Work Phone: [facility] 10-31-2024 14:59-0400 Diastolic blood pressure 64 mm[Hg] Carmella Cabrera APRN.MALE INFERTILITY SPECIALIST Work Phone: [facility] 10-31-2024 14:59-0400 Systolic blood pressure 90 mm[Hg] Carmella Cbarera APRN.MALE INFERTILITY SPECIALIST Work Phone: [facility] 07-30-2024 15:15-0400 Diastolic blood pressure 67 mm[Hg] Alan Rene MD Work Phone: [facility] 07-30-2024 15:15-0400 Heart rate 85 /min Alan Rene MD Work Phone: [facility] 07-30-2024 15:15-0400 Respiratory rate 20 /min Alan Rene MD Work Phone: [facility] 07-30-2024 15:15-0400 SaO2% (BldA) [Mass fraction] 98 % Alan Rene MD Work Phone: [facility] 07-30-2024 15:15-0400 Systolic blood pressure 97 mm[Hg] Alan Rene MD Work Phone: [facility] 07-30-2024 14:53-0400 Body mass index (BMI) [Ratio] 20.57 kg/m2 [facility] [place] Work Phone: [facility] 07-30-2024 14:53-0400 Body weight 53.5 kg [facility] [place] Work Phone: [facility] 06-21-2024 13:17-0500 Body height [address] 06-21-2024 13:17-0500 Body mass index (BMI) [Ratio] 20.55 kg/m2 [address] 06-21-2024 13:17-0500 Body weight 52.[address] 06-04-2024 10:06-0500 Body height 160 cm Tayo Rodriguez MD Work Phone: [facility] 06-04-2024 10:06-0500 Body mass index (BMI) [Ratio] 20.62 kg/m2 Tayo Rodriguez MD Work Phone: [facility] 06-04-2024 10:06-0500 Body temperature 98.2 [degF] Tayo Rodriguez MD Work Phone: [facility] 06-04-2024 10:06-0500 Body weight 52.8 kg Tayo Rodriguez MD Work Phone: [facility] 06-04-2024 10:06-0500 Diastolic blood pressure 62 mm[Hg] Tayo Rodriguez MD Work Phone: [facility] 06-04-2024 10:06-0500 Heart rate 81 /min Tayo Rodriguez MD Work Phone: [facility] 06-04-2024 10:06-0500 SaO2% (BldA) [Mass fraction] 98 % Tayo Rodriguez MD Work Phone: [facility] 06-04-2024 10:06-0500 Systolic blood pressure 100 mm[Hg] Tayo Rodriguez MD Work Phone: [facility] 03-29-2024 12:03-0500 Body mass index (BMI) [Ratio] 19.99 kg/m2 Madison Medina NUCLEAR FUEL ENRICHMENT TECHNICIAN.MALE INFERTILITY SPECIALIST Work Phone: [facility] 03-29-2024 12:03-0500 Body temperature 98.01 [degF] Madison Medina NUCLEAR FUEL ENRICHMENT TECHNICIAN.MALE INFERTILITY SPECIALIST Work Phone: [facility] 03-29-2024 12:03-0500 Body weight 52 kg Madison Medina NUCLEAR FUEL ENRICHMENT TECHNICIAN.MALE INFERTILITY SPECIALIST Work Phone: [facility] 03-29-2024 12:03-0500 Diastolic blood pressure 70 mm[Hg] Madison Medina NUCLEAR FUEL ENRICHMENT TECHNICIAN.MALE INFERTILITY SPECIALIST Work Phone: [facility] 03-29-2024 12:03-0500 Heart rate 83 /min Madison Medina NUCLEAR FUEL ENRICHMENT TECHNICIAN.MALE INFERTILITY SPECIALIST Work Phone: [facility] 03-29-2024 12:03-0500 Respiratory rate 18 /min Madison Medina NUCLEAR FUEL ENRICHMENT TECHNICIAN.MALE INFERTILITY SPECIALIST Work Phone: [facility] 03-29-2024 12:03-0500 SaO2% (BldA) [Mass fraction] 99 % Madison Medina NUCLEAR FUEL ENRICHMENT TECHNICIAN.MALE INFERTILITY SPECIALIST Work Phone: [facility] 03-29-2024 12:03-0500 Systolic blood pressure 103 mm[Hg] Madison Medina NUCLEAR FUEL ENRICHMENT TECHNICIAN.MALE INFERTILITY SPECIALIST Work Phone: [facility] 03-05-2024 15:17-0500 Diastolic blood pressure 70 mm[Hg] Alan Rene MD Work Phone: [facility] 03-05-2024 15:17-0500 Heart rate 78 /min Alan Rene MD Work Phone: [facility] 03-05-2024 15:17-0500 Respiratory rate 16 /min Alan Rene MD Work Phone: [facility] 03-05-2024 15:17-0500 SaO2% (BldA) [Mass fraction] 98 % Alan Rene MD Work Phone: [facility] 03-05-2024 15:17-0500 Systolic blood pressure 102 mm[Hg] Alan Rene MD Work Phone: [facility] 11-17-2023 09:38-0400 Body temperature 98.8 [degF] Treatment Wstr Work Phone: [facility] 11-17-2023 09:38-0400 Diastolic blood pressure 71 mm[Hg] Treatment Wstr Work Phone: [facility] 11-17-2023 09:38-0400 Heart rate 83 /min Treatment Wstr Work Phone: [facility] 11-17-2023 09:38-0400 Respiratory rate 18 /min Treatment Wstr Work Phone: [facility] 11-17-2023 09:38-0400 SaO2% (BldA) [Mass fraction] 98 % Treatment Wstr Work Phone: [facility] 11-17-2023 09:38-0400 Systolic blood pressure 99 mm[Hg] Treatment Wstr Work Phone: [facility] 09-21-2023 11:34-0400 Body height 161.9 cm Tayo Rodriguez MD Work Phone: [facility] 09-21-2023 11:34-0400 Body mass index (BMI) [Ratio] 18.38 kg/m2 Tayo Rodriguez MD Work Phone: [facility] 09-21-2023 11:34-0400 Body weight 48.2 kg Tayo Rodriguez MD Work Phone: [facility] 09-21-2023 11:34-0400 Diastolic blood pressure 63 mm[Hg] Tayo Rodriguez MD Work Phone: [facility] 09-21-2023 11:34-0400 Heart rate 94 /min Tayo Rodriguez MD Work Phone: [facility] 09-21-2023 11:34-0400 SaO2% (BldA) [Mass fraction] 94 % Tayo Rodriguez MD Work Phone: [facility] 09-21-2023 11:34-0400 Systolic blood pressure 90 mm[Hg] Tayo Rodriguez MD Work Phone: [facility] 08-31-2023 11:35-0400 Diastolic blood pressure 62 mm[Hg] Alan Rene MD Work Phone: [facility] 08-31-2023 11:35-0400 Heart rate 78 /min Alan Rene MD Work Phone: [facility] 08-31-2023 11:35-0400 Respiratory rate 18 /min Alan Rene MD Work Phone: [facility] 08-31-2023 11:35-0400 SaO2% (BldA) [Mass fraction] 98 % Alan Rene MD Work Phone: [facility] 08-31-2023 11:35-0400 Systolic blood pressure 92 mm[Hg] Alan Rene MD Work Phone: [facility] 08-16-2023 08:55-0400 Body mass index (BMI) [Ratio] 18.13 kg/m2 Lora Rodrigues MD Work Phone: [facility] 08-16-2023 08:55-0400 Body weight 47.17 kg Lora Rodrigues MD Work Phone: [facility] 03-30-2023 11:53-0500 Diastolic blood pressure 62 mm[Hg] Alan Rene MD Work Phone: [facility] 03-30-2023 11:53-0500 Systolic blood pressure 89 mm[Hg] Alan Rene MD Work Phone: [facility] 03-30-2023 11:51-0500 Heart rate 62 /min Alan Rene MD Work Phone: [facility] 03-30-2023 11:51-0500 Respiratory rate 18 /min Alan Rene MD Work Phone: [facility] 03-30-2023 11:51-0500 SaO2% (BldA) [Mass fraction] 98 % Alan Rene MD Work Phone: [facility] 12-23-2022 11:14-0400 Body mass index (BMI) [Ratio] 20.37 kg/m2 Tayo Rodriguez MD Work Phone: [facility] 12-23-2022 11:14-0400 Body temperature 98.29 [degF] Tayo Rodriguez MD Work Phone: [facility] 12-23-2022 11:14-0400 Body weight 52.16 kg Tayo Rodriguez MD Work Phone: [facility] 12-23-2022 11:14-0400 Diastolic blood pressure 76 mm[Hg] Tayo Rodriguez MD Work Phone: [facility] 12-23-2022 11:14-0400 Heart rate 83 /min Tayo Rodriguez MD Work Phone: [facility] 12-23-2022 11:14-0400 Respiratory rate 16 /min Tayo Rodriguez MD Work Phone: [facility] 12-23-2022 11:14-0400 SaO2% (BldA) [Mass fraction] 97 % Tayo Rodriguez MD Work Phone: [facility] 12-23-2022 11:14-0400 Systolic blood pressure 108 mm[Hg] Tayo Rodriguez MD Work Phone: [facility] 08-31-2023 13:52-0400 Body weight 53.52 kg Lora Rodrigues MD Work Phone: [facility] 12-13-2022 14:05-0400 Body temperature 99 [degF] Alan Rene MD Work Phone: [facility] 12-13-2022 14:05-0400 Diastolic blood pressure 73 mm[Hg] Alan Rene MD Work Phone: [facility] 12-13-2022 14:05-0400 Heart rate 102 /min Alan Rene MD Work Phone: [facility] 12-13-2022 14:05-0400 Respiratory rate 16 /min Alan Rene MD Work Phone: [facility] 12-13-2022 14:05-0400 SaO2% (BldA) [Mass fraction] 97 % Alan Rene MD Work Phone: [facility] 12-13-2022 14:05-0400 Systolic blood pressure 103 mm[Hg] Alan Rene MD Work Phone: [facility] 08-25-2022 15:13-0400 Body temperature 97.9 [degF] Treatment Wstr Work Phone: [facility] 08-25-2022 15:13-0400 Diastolic blood pressure 64 mm[Hg] Treatment Wstr Work Phone: [facility] 08-25-2022 15:13-0400 Heart rate 56 /min Treatment Wstr Work Phone: [facility] 08-25-2022 15:13-0400 Systolic blood pressure 90 mm[Hg] Treatment Wstr Work Phone: [facility] 08-12-2022 13:16-0400 Diastolic blood pressure 60 mm[Hg] Gale Waryk NUCLEAR FUEL ENRICHMENT TECHNICIAN.MALE INFERTILITY SPECIALIST Work Phone: [facility] 08-12-2022 13:16-0400 Systolic blood pressure 102 mm[Hg] Gale Waryk NUCLEAR FUEL ENRICHMENT TECHNICIAN.MALE INFERTILITY SPECIALIST Work Phone: [facility] 08-12-2022 11:07-0400 Body height 161.3 cm Joslyn Carrion MD Work Phone: [facility] 08-12-2022 11:07-0400 Body weight 54.57 kg Joslyn Carrion MD Work Phone: [facility] 08-12-2022 11:07-0400 Diastolic blood pressure 60 mm[Hg] Joslyn Carrion MD Work Phone: [facility] 08-12-2022 11:07-0400 Systolic blood pressure 102 mm[Hg] Joslyn Carrion MD Work Phone: [facility] 07-08-2022 12:50-0400 Body height 160 cm Tayo Rodriguez MD Work Phone: [facility] 07-08-2022 12:50-0400 Body mass index (BMI) [Ratio] 21.09 kg/m2 Tayo Rodriguez MD Work Phone: [facility] 07-08-2022 12:50-0400 Body temperature 97.11 [degF] Tayo Rodriguez MD Work Phone: [facility] 07-08-2022 12:50-0400 Body weight 54 kg Tayo Rodriguez MD Work Phone: [facility] 07-08-2022 12:50-0400 Diastolic blood pressure 78 mm[Hg] Tayo Rodriguez MD Work Phone: [facility] 07-08-2022 12:50-0400 Heart rate 76 /min Tayo Rodriguez MD Work Phone: [facility] 07-08-2022 12:50-0400 Systolic blood pressure 110 mm[Hg] Tayo Rodriguez MD Work Phone: [facility] 06-29-2022 11:53-0400 Body height 162.6 cm Tayo Rodriguez MD Work Phone: [facility] 06-29-2022 11:53-0400 Body mass index (BMI) [Ratio] 19.74 kg/m2 Tayo Rodriguez MD Work Phone: [facility] 06-29-2022 11:53-0400 Body temperature 97.9 [degF] Tayo Rodriguez MD Work Phone: [facility] 06-29-2022 11:53-0400 Body weight 52.16 kg Tayo Rodriguez MD Work Phone: [facility] 06-29-2022 11:53-0400 Diastolic blood pressure 78 mm[Hg] Tayo Rodriguez MD Work Phone: [facility] 06-29-2022 11:53-0400 Heart rate 76 /min Tayo Rodriguez MD Work Phone: [facility] 06-29-2022 11:53-0400 Systolic blood pressure 110 mm[Hg] Tayo Rodriguez MD Work Phone: [facility] 06-21-2022 15:55-0500 Body height 160 cm Tayo Rodriguez MD Work Phone: [facility] 06-21-2022 15:55-0500 Body mass index (BMI) [Ratio] 21.26 kg/m2 Tayo Rodriguez MD Work Phone: [facility] 06-21-2022 15:55-0500 Body temperature 97.11 [degF] Tayo Rodriguez MD Work Phone: [facility] 06-21-2022 15:55-0500 Body weight 54.43 kg Tayo Rodriguez MD Work Phone: [facility] 06-21-2022 15:55-0500 Diastolic blood pressure 64 mm[Hg] Tayo Rodriguez MD Work Phone: [facility] 06-21-2022 15:55-0500 Heart rate 52 /min Tayo Rodriguez MD Work Phone: [facility] 06-21-2022 15:55-0500 SaO2% (BldA) [Mass fraction] 96 % Tayo Rodriguez MD Work Phone: [facility] 06-21-2022 15:55-0500 Systolic blood pressure 120 mm[Hg] Tayo Rodriguez MD Work Phone: [facility] 06-19-2022 09:59-0500 Body temperature 97.5 [degF] Madison Medina NUCLEAR FUEL ENRICHMENT TECHNICIAN.MALE INFERTILITY SPECIALIST Work Phone: [facility] 06-19-2022 09:59-0500 Body weight 53.98 kg Madison Medina NUCLEAR FUEL ENRICHMENT TECHNICIAN.MALE INFERTILITY SPECIALIST Work Phone: [facility] 06-19-2022 09:59-0500 Diastolic blood pressure 62 mm[Hg] Madison Medina NUCLEAR FUEL ENRICHMENT TECHNICIAN.MALE INFERTILITY SPECIALIST Work Phone: [facility] 06-19-2022 09:59-0500 Heart rate 86 /min Madison Medina NUCLEAR FUEL ENRICHMENT TECHNICIAN.MALE INFERTILITY SPECIALIST Work Phone: [facility] 06-19-2022 09:59-0500 Respiratory rate 16 /min Madison Medina NUCLEAR FUEL ENRICHMENT TECHNICIAN.MALE INFERTILITY SPECIALIST Work Phone: [facility] 06-19-2022 09:59-0500 SaO2% (BldA) [Mass fraction] 98 % Madison Medina NUCLEAR FUEL ENRICHMENT TECHNICIAN.MALE INFERTILITY SPECIALIST Work Phone: [facility] 06-19-2022 09:59-0500 Systolic blood pressure 92 mm[Hg] Madison Medina NUCLEAR FUEL ENRICHMENT TECHNICIAN.MALE INFERTILITY SPECIALIST Work Phone: [facility] 06-17-2022 16:51-0500 Body height 160.02 cm [facility] 06-17-2022 16:51-0500 Body mass index (BMI) [Ratio] 20.9 kg/m2 [facility] 06-17-2022 16:51-0500 Body temperature 98 [degF] [facility] 06-17-2022 16:51-0500 Body weight 53.52 kg [facility] 06-17-2022 16:51-0500 Diastolic blood pressure 76 mm[Hg] [facility] 06-17-2022 16:51-0500 Heart rate 85 /min [facility] 06-17-2022 16:51-0500 Respiratory rate 16 /min [facility] 06-17-2022 16:51-0500 SaO2% (BldA) [Mass fraction] 97 % [facility] 06-17-2022 16:51-0500 Systolic blood pressure 99 mm[Hg] [facility] 06-01-2022 11:49-0500 Diastolic blood pressure 59 mm[Hg] Alan Rene MD Work Phone: [facility] 06-01-2022 11:49-0500 Heart rate 78 /min Alan Rene MD Work Phone: [facility] 06-01-2022 11:49-0500 Respiratory rate 20 /min Alan Rene MD Work Phone: [facility] 06-01-2022 11:49-0500 Systolic blood pressure 97 mm[Hg] Alan Rene MD Work Phone: [facility] 02-17-2022 10:10-0400 Body temperature 98.91 [degF] Moris Bernstein NUCLEAR FUEL ENRICHMENT TECHNICIAN.MALE INFERTILITY SPECIALIST Work Phone: [facility] 02-17-2022 10:10-0400 Body weight 53.07 kg Moris Bernstein NUCLEAR FUEL ENRICHMENT TECHNICIAN.MALE INFERTILITY SPECIALIST Work Phone: [facility] 02-17-2022 10:10-0400 Diastolic blood pressure 60 mm[Hg] Moris Bernstein NUCLEAR FUEL ENRICHMENT TECHNICIAN.MALE INFERTILITY SPECIALIST Work Phone: [facility] 02-17-2022 10:10-0400 Heart rate 74 /min Moris Bernstein NUCLEAR FUEL ENRICHMENT TECHNICIAN.MALE INFERTILITY SPECIALIST Work Phone: [facility] 02-17-2022 10:10-0400 Respiratory rate 16 /min Moris Bernstein NUCLEAR FUEL ENRICHMENT TECHNICIAN.MALE INFERTILITY SPECIALIST Work Phone: [facility] 02-17-2022 10:10-0400 SaO2% (BldA) [Mass fraction] 99 % Moris Bernstein NUCLEAR FUEL ENRICHMENT TECHNICIAN.MALE INFERTILITY SPECIALIST Work Phone: [facility] 02-17-2022 10:10-0400 Systolic blood pressure 100 mm[Hg] Moris Bernstein NUCLEAR FUEL ENRICHMENT TECHNICIAN.MALE INFERTILITY SPECIALIST Work Phone: [facility] 01-21-2022 10:37-0400 Body temperature 97.81 [degF] Madison Glennie NUCLEAR FUEL ENRICHMENT TECHNICIAN.MALE INFERTILITY SPECIALIST Work Phone: [facility] 01-21-2022 10:37-0400 Body weight 51.26 kg Madison Glennie NUCLEAR FUEL ENRICHMENT TECHNICIAN.MALE INFERTILITY SPECIALIST Work Phone: [facility] 01-21-2022 10:37-0400 Diastolic blood pressure 75 mm[Hg] Madison Glennie NUCLEAR FUEL ENRICHMENT TECHNICIAN.MALE INFERTILITY SPECIALIST Work Phone: [facility] 01-21-2022 10:37-0400 Heart rate 80 /min Madison Glennie NUCLEAR FUEL ENRICHMENT TECHNICIAN.MALE INFERTILITY SPECIALIST Work Phone: [facility] 01-21-2022 10:37-0400 Respiratory rate 24 /min Madison Glennie NUCLEAR FUEL ENRICHMENT TECHNICIAN.MALE INFERTILITY SPECIALIST Work Phone: [facility] 01-21-2022 10:37-0400 SaO2% (BldA) [Mass fraction] 99 % Madison Glennie NUCLEAR FUEL ENRICHMENT TECHNICIAN.MALE INFERTILITY SPECIALIST Work Phone: [facility] 01-21-2022 10:37-0400 Systolic blood pressure 111 mm[Hg] Madison Glennie NUCLEAR FUEL ENRICHMENT TECHNICIAN.MALE INFERTILITY SPECIALIST Work Phone: [facility] 12-30-2021 10:22-0400 Body height 161 cm Candie Duron MD Work Phone: [facility] 12-30-2021 [id number] Body weight 52.89 kg Candie Duron MD Work Phone: [facility] 12-30-2021 10:22-0400 Diastolic blood pressure 60 mm[Hg] Candie Duron MD Work Phone: [facility] 12-30-2021 10:22-0400 Systolic blood pressure 100 mm[Hg] Candie Duron MD Work Phone: [facility] 10-12-2021 10:50-0400 Body height 162.6 cm Alan Rene MD Work Phone: [facility] 10-12-2021 10:50-0400 Body temperature 98.1 [degF] Alan Rene MD Work Phone: [facility] 10-12-2021 10:50-0400 Body weight 51.26 kg Alan Rene MD Work Phone: [facility] 10-12-2021 10:50-0400 Diastolic blood pressure 73 mm[Hg] Alan Rene MD Work Phone: [facility] 10-12-2021 10:50-0400 Heart rate 71 /min Alan Rene MD Work Phone: [facility] 10-12-2021 10:50-0400 Respiratory rate 20 /min Alan Rene MD Work Phone: [facility] 10-12-2021 10:50-0400 SaO2% (BldA) [Mass fraction] 100 % Alan Rene MD Work Phone: [facility] 10-12-2021 10:50-0400 Systolic blood pressure 97 mm[Hg] Alan Rene MD Work Phone: [facility] 12-11-2020 09:39-0400 Body height 162.56 cm Tayo AroraMIOXbhumika [facility] Work Phone: 12-11-2020 09:39-0400 Body mass index (BMI) [Ratio] 19.74 kg/m2 Tayo [employer] Work Phone: [facility] Work Phone: 12-11-2020 09:39-0400 Body surface area Derived from formula 1.55 m2 Tayo [employer] Work Phone: [facility] Work Phone: 12-11-2020 09:39-0400 Body temperature 97.5 [degF] Tayo Taliwal Work Phone: [facility] Work Phone: 12-11-2020 09:39-0400 Body weight 52.16 kg Tayo Taliwal Work Phone: [facility] Work Phone: 12-11-2020 09:39-0400 Diastolic blood pressure 62 mm[Hg] Tayo Taliwal Work Phone: [facility] Work Phone: 12-11-2020 09:39-0400 Heart rate 64 /min Tayo Taliwal Work Phone: [facility] Work Phone: 12-11-2020 09:39-0400 Systolic blood pressure 104 mm[Hg] Tayo Taliwal Work Phone: [facility] Work Phone: NEGATED: Highlighted [id number] 12:54-0400 BMI (Body Mass Index) 19.81 kg/m2 Desire Miki ABORIGINAL EDUCATION TEACHER [facility] Work Phone: NEGATED: Highlighted [id number] 12:54-0400 Body Temperature 98.2 [degF] Desire Miki ABORIGINAL EDUCATION TEACHER [facility] Work Phone: NEGATED: Highlighted [id number] 12:54-0400 Body Temperature 98.24 [degF] Desire Miki ABORIGINAL EDUCATION TEACHER [facility] Work Phone: NEGATED: Highlighted [id number] 12:54-0400 Body weight 52.16 kg Desire Miki ABORIGINAL EDUCATION TEACHER [facility] Work Phone: NEGATED: Highlighted [id number] 12:54-0400 Body weight 52 kg Desire Miki ABORIGINAL EDUCATION TEACHER [facility] Work Phone: NEGATED: Highlighted [id number] 12:54-0400 Height 162.56 cm Desire Miki ABORIGINAL EDUCATION TEACHER [facility] Work Phone: NEGATED: Highlighted [id number] 12:54-0400 Height 163 cm Desire Miki ABORIGINAL EDUCATION TEACHER [facility] Work Phone: Encounters Encounter Date Encounter Type Care Provider Facility Start: 02-11-2025 End: 02-11-2025 ambulatory [facility] Start: 02-11-2025 End: 02-11-2025 Telemedicine consultation with patient [facility] Work Phone: [facility] Comment on above: Psoriasis Start: 01-29-2025 End: 01-29-2025 ambulatory TAYO TALIWAL Facility:[facility] Start: 01-24-2025 ambulatory [facility] Facility: [facility] Start: 01-23-2025 End: 01-23-2025 Office outpatient visit 25 minutes Tayo Rodriguez MD Work Phone: [facility] Comment on above: Left lateral abdomin al pain (Primary Dx); Nausea; Diarrhea of presumed infectious origin; Left lower quadrant abdominal tenderness with rebound tenderness; Other iron deficiency anemia Start: 01-23-2025 End: 01-23-2025 ambulatory [facility] Start: 01-22-2025 End: 01-22-2025 ambulatory [facility] Facility:[facility] Start: 01-21-2025 End: 01-21-2025 ambulatory [facility] Facility:[facility] Start: 01-16-2025 End: 01-16-2025 ambulatory [facility] Facility:[facility] Start: 01-01-2025 End: 01-01-2025 ambulatory TAYO RODRIGUEZ Facility:[facility] Start: 12-20-2024 End: 12-20-2024 Emergency department patient visit CHACHA JOSE Facility:[facility] Start: 12-20-2024 End: 12-20-2024 Patient encounter procedure Tayo Rodriguez MD Work Phone: [facility] Work Phone: Start: 12-20-2024 End: 12-20-2024 Periodic preventive med est patient 40-64yrs Tayo Rodriguez MD Work Phone: [facility] Comment on above: Encounter for annual general medical examination without abnormal findings in adult (Primary Dx); Vitamin D deficiency; Vitamin B 12 deficiency; Anxiety; Screening for diabetes mellitus; Hyperglycemia; MCTD (mixed connective tissue disease) (Multi); Hypercoagulable state, secondary (Multi); Psoriasis; ILD (interstitial lung disease) (Multi); Wheezing Start: 12-20-2024 End: 12-20-2024 ambulatory [facility] Start: 12-20-2024 End: 12-20-2024 Encounter for general adult medical examination without abnormal findings [facility] Start: 11-19-2024 End: 11-19-2024 ambulatory Treatment Rm 15 [facility] Work Phone: Hematology/Oncology Comment on above: Osteoporosis without current pathological fracture, unspecified osteoporosis type (Primary Dx) Start: 11-18-2024 End: 11-19-2024 ambulatory Lora Rodrigues MD Work Phone: [facility] Endocrinology, Diabetes, and Metabolism Start: 11-18-2024 End: 11-19-2024 Patient encounter procedure Lora Rodrigues MD [facility] Diabetes, [facility] Met[facility] Comment on above: Reclast Start: 11-12-2024 End: 11-12-2024 Orders Only Lora Rodrigues MD Work Phone: [facility] Endocrinology, Diabetes, and Metabolism Start: 10-31-2024 End: 10-31-2024 ambulatory [facility] Facility:[facility] Start: 10-31-2024 Encounter for gynecological examination (general) (routine) without abnormal findings CARMELLA CABRERA [facility] Start: 10-31-2024 End: 10-31-2024 Patient encounter procedure Carmella Cabrera APRN.MALE INFERTILITY SPECIALIST Work Phone: OB/Gynecology Comment on above: Encounter for gyneco logical examination (general) (routine) without abnormal findings (Primary Dx); Encounter for screening mammogram for breast cancer Start: 10-31-2024 End: 10-31-2024 Patient encounter status Carmella Cabrera APRN.MALE INFERTILITY SPECIALIST Work Phone: [facility] Work Phone: Start: 10-05-2024 End: 12-05-2024 Follow-up encounter Beatrice Miguel MD Work Phone: Pulmonary Medicine Start: 10-04-2024 End: 10-04-2024 [facility] Facility:[facility] Start: 10-02-2024 End: 10-02-2024 Telephone encounter Lora Rodrigues MD Work Phone: [facility] Diabetes, and Met[facility] Comment on above: Results; Reclast ord er Start: 10-01-2024 End: 10-01-2024 [facility] Facility:[facility] Start: 09-26-2024 End: 09-26-2024 Admission to same day surgery center Lora Rodrigues MD Work Phone: [facility] Endocrinology, Diabetes, and Metabolism Comment on above: Osteoporosis without current pathological fracture, unspecified osteoporosis type (Primary Dx); Vitamin D deficiency; History of parathyroid surgery Start: 09-26-2024 End: 09-26-2024 Telemedicine consultation with patient Lora Rodrigues MD Work Phone: [facility] Endocrinology, Diabetes, and Metabolism Start: 09-26-2024 End: 09-26-2024 ambulatory LORA RODRIGUES Facility:[facility] Start: 09-24-2024 End: 09-24-2024 ambulatory Lora Rodrigues MD Work Phone: [facility] Endocrinology, Diabetes, and Metabolism Start: 09-24-2024 End: 09-24-2024 Patient encounter procedure Lora Rodrigues MD Work Phone: [facility] Endocrinology, Diabetes, and Metabolism Comment on above: Reclast Start: 09-24-2024 End: 09-25-2024 Telephone encounter Zaki Keenan MD Work Phone: Hematology/Oncology Comment on above: Appointment Start: 08-20-2024 End: 08-20-2024 ambulatory [facility] Facility:[facility] Start: 07-30-2024 End: 07-30-2024 ambulatory [facility] Pulmonary Lab Comment on above: Spirometry Start: 07-30-2024 End: 07-30-2024 Patient encounter procedure [facility] [place] Work Phone: Pulmonary Lab Comment on above: Pulmonary arterial h ypertension (HCC) (Primary Dx); Pulmonary hypertension (HCC); Mixed connective tissue disease (HCC) Start: 07-09-2024 End: 07-09-2024 ambulatory [facility] Facility:[facility] Start: 07-05-2024 End: 07-05-2024 Subsequent hospital visit by physician Hector Arizmendi [address] [facility] Comment on above: Left wrist pain; Left hand pain Start: 07-05-2024 End: 07-05-2024 [facility] Start: 06-25-2024 End: 06-25-2024 Subsequent hospital visit by physician Hector [facility] Comment on above: Abnormal mammogram Start: 06-25-2024 End: 06-25-2024 [facility] Start: 06-25-2024 End: 06-25-2024 [facility] Start: 06-21-2024 End: 06-21-2024 Subsequent hospital visit by physician Mary Ann Aleman 1 [facility] Comment on above: Encounter for screen ing mammogram for malignant neoplasm of breast Start: 06-21-2024 End: 06-21-2024 ambulatory [facility] Start: 06-21-2024 End: 06-21-2024 ambulatory [facility] Start: 06-04-2024 End: 06-04-2024 Office outpatient visit 40 minutes Tayo Rodriguez MD Work Phone: [facility] Comment on above: Coated tongue (Prima ry Dx); Encounter for screening mammogram for malignant neoplasm of breast; Other osteoporosis without current pathological fracture; Anxiety; Anemia, unspecified type; Sore throat; Blood clotting disorder (Multi); MCTD (mixed connective tissue disease) (Multi); Hypercoagulable state, secondary (Multi); Psoriatic arthritis (Multi); ILD (interstitial lung disease) (Multi); Encounter for osteoporosis screening in asymptomatic postmenopausal patient; Encounter for annual general medical examination without abnormal findings in adult Start: 06-04-2024 End: 06-04-2024 Patient encounter procedure Tayo Rodriguez MD Work Phone: [facility] Work Phone: Start: 06-04-2024 End: 06-04-2024 ambulatory [facility] Start: 05-14-2024 End: 05-14-2024 ambulatory [facility] Facility:[facility] Start: 03-29-2024 End: 03-29-2024 [facility] Facility:[facility] Start: 03-29-2024 End: 03-29-2024 Patient encounter procedure Madison Medina APRN.CNP Work Phone: [facility] Comment on above: Ingrown toenail (Maya katelyn Dx); Pain of right great toe Start: 03-05-2024 End: 03-05-2024 ambulatory [facility] Pulmonary Lab Comment on above: Spirometry Start: 03-05-2024 End: 03-05-2024 Patient encounter procedure [facility] [place] Work Phone: Pulmonary Lab Comment on above: Need for influenza v accination (Primary Dx); ILD (interstitial lung disease) (HCC) Start: 02-20-2024 End: 02-20-2024 ambulatory [facility] Facility:[facility] Start: 11-17-2023 End: 11-17-2023 ambulatory Treatment [facility] Work Phone: Hematology/Oncology Comment on above: Osteoporosis without current pathological fracture, unspecified osteoporosis type (Primary Dx) Start: 11-17-2023 End: 11-17-2023 Patient encounter procedure Treatment Rm 15 Shin [facility] Work Phone: Hematology/Oncology Start: 11-10-2023 End: 11-10-2023 ambulatory Treatment [facility] Work Phone: Hematology/Oncology Comment on above: Osteoporosis without current pathological fracture, unspecified osteoporosis type (Primary Dx) Start: 11-10-2023 End: 11-10-2023 Patient encounter procedure Treatment Rm 15 [facility] Work Phone: Hematology/Oncology Start: 10-21-2023 Telephone encounter Lora green MD Work Phone: [facility] General Endocrinology, Diabetes, and Metabolism Comment on above: Orders (Reclast pt s cheduled) Start: 09-21-2023 End: 06-06-2024 Patient encounter procedure Tayo Rodriguez MD Work Phone: [facility] Work Phone: Start: 09-21-2023 End: 09-21-2023 Periodic preventive med est patient 40-64yrs Tayo Rodriguez MD Work Phone: [facility] Comment on above: Encounter for annual general medical examination without abnormal findings in adult (Primary Dx); Screening for multiple conditions; Vitamin D deficiency; Vitamin B 12 deficiency; Hyperparathyroidism (Multi); Secondary hypercoagulable state (Multi); Hyperglycemia; Psoriatic arthritis (Multi); Bronchiectasis with acute exacerbation (Multi); Coated tongue; Encounter for screening mammogram for malignant neoplasm of breast Start: 09-14-2023 Telephone encounter Lora green MD Work Phone: [facility], Diabetes, and Metabolism Start: 09-01-2023 Telephone encounter Lora green MD Work Phone: [facility] Endocrinology, Diabetes, and Metabolism Comment on above: Results Start: 08-31-2023 End: 08-31-2023 ambulatory [facility] Work Phone: Pulmonary Lab Comment on above: Spirometry Start: 08-31-2023 End: 08-31-2023 Patient encounter procedure [facility] Work Phone: Pulmonary Lab Comment on above: ILD (interstitial clarke ng disease) (HCC) (Primary Dx) Start: 08-17-2023 Telephone encounter Hattie king MD Work Phone: [facility] Clinical Communication Comment on above: Test Scheduling Start: 08-16-2023 End: 08-16-2023 Admission to same day surgery center Lora Rodrigues MD Work Phone: [facility] Endocrinology, Diabetes, and Metabolism Comment on above: Osteoporosis without current pathological fracture, unspecified osteoporosis type (Primary Dx); Vitamin D deficiency; History of parathyroid surgery Start: 08-16-2023 End: 08-16-2023 Telemedicine consultation with patient Lora Rodrigues MD Work Phone: [facility] Endocrinology, Diabetes, and Metabolism Start: 07-29-2023 ambulatory Lora Gary Work Phone: [facility] Endocrinology, Diabetes, and Metabolism Comment on above: Reclast Start: 03-30-2023 End: 03-30-2023 ambulatory [facility] [place] Work Phone: Pulmonary Lab Comment on above: Spirometry Start: 03-30-2023 End: 03-30-2023 Patient encounter procedure [facility] [place] Work Phone: [facility] Comment on above: ILD (interstitial clarke ng disease) (HCC) (Primary Dx) Start: 03-18-2023 End: 03-18-2023 Subsequent hospital visit by physician Lisa [facility] Ling Work Phone: Radiology Comment on above: Acute pain of left s houlder [M25.512] Start: 03-18-2023 Telephone encounter Ranjit glass APRN.MALE INFERTILITY SPECIALIST Work Phone: [facility] Comment on above: Results Start: 02-22-2023 Telephone encounter Lora green MD Work Phone: [facility] Endocrinology, Diabetes, and Metabolism Comment on above: Results Start: 02-22-2023 End: 02-22-2023 ambulatory Cat Gil CCC-SUPERVISOR GARAGE Work Phone: [facility] Speech Therapy Comment on above: Dysphagia, unspecifi ed type (Primary Dx) Start: 02-22-2023 End: 02-22-2023 Subsequent hospital visit by physician Gi/Gu [facility] Comment on above: Gastro-esophageal re flux disease without esophagitis [K21.9] Start: 02-21-2023 End: 02-21-2023 Subsequent hospital visit by physician Gi/Gu 1 [facility] ([facility] Comment on above: Cough, unspecified [ R05.9] Start: 01-20-2023 Transcribe Orders Hattie vallecillo MD Work Phone: [facility] Comment on above: Gastro-esophageal re flux disease without esophagitis (Primary Dx); Other primary thrombophilia (HCC); 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 Tayo Rodriguez [facility] [id number] Start: 12-23-2022 End: 12-23-2022 Office outpatient visit 25 minutes Tayo Rodriguez MD Work Phone: [facility] Comment on above: Wheezing (Primary Dx ); SOB (shortness of breath); Abnormal chest x-ray; Pneumonitis; Bronchiectasis with acute exacerbation (CMS/HCC); Cough, unspecified type Start: 12-16-2022 End: 12-16-2022 Admission to same day surgery center Lora Rodrigues MD Work Phone: [facility] Endocrinology, Diabetes, and Metabolism Comment on above: Osteoporosis without current pathological fracture, unspecified osteoporosis type (Primary Dx); Vitamin D deficiency; History of parathyroid surgery Start: 12-16-2022 End: 12-16-2022 Telemedicine consultation with patient Lora Rodrigues MD Work Phone: [facility] Start: 12-13-2022 End: 12-13-2022 ambulatory [facility] Work Phone: Pulmonary Lab Comment on above: Spirometry Start: 12-13-2022 End: 12-13-2022 Patient encounter procedure [facility] Work Phone: [facility] Comment on above: ILD (interstitial clarke ng disease) (HCC) (Primary Dx) Start: 11-30-2022 End: 11-30-2022 ambulatory PETEY PATRICIA Facility:[facility] Start: 11-11-2022 Orders Only Alan tinoco MD Work Phone: Pulmonary Medicine Comment on above: ILD (interstitial clarke ng disease) (HCC) (Primary Dx) Start: 10-28-2022 End: 10-28-2022 Office outpatient visit 25 minutes Tayo Rodriguez MD Work Phone: [facility] Comment on above: Sinus congestion (Pr imary Dx); Fever, unspecified fever cause; Hyperparathyroidism (CMS/HCC) Start: 10-21-2022 Telephone encounter Alan Rene MD Work Phone: Pulmonary Medicine Comment on above: Patient Question ILD (interstitial clarke ng disease) (HCC) (Primary Dx) Start: 09-21-2022 Patient encounter procedure [facility] Department Start: 08-25-2022 End: 08-25-2022 ambulatory Treatment Rm 6 [facility] Work Phone: Hematology/Oncology Comment on above: Osteoporosis without current pathological fracture, unspecified osteoporosis type (Primary Dx) Start: 08-12-2022 End: 08-12-2022 Patient encounter status Gale Goodrich APRN.MALE INFERTILITY SPECIALIST Work Phone: Gynecology Start: 08-12-2022 End: 08-12-2022 Patient encounter procedure Joslyn Carrion MD Work Phone: [facility] Comment on above: POI versus perimenop ause age 39 s/p uterine artery embolization with osteoporosis, GSM, HSDD (Primary Dx); GSM ; HSDD, acquired ; Osteoporosis without current pathological fracture, unspecified osteoporosis type; Hyperparathyroid (HCC) s/p surgery 2014; Nephrolithiasis; hx of low vitamin D; MCTD (mixed connective tissue disease) (HCC); Interstitial lung disease (HCC); Hx of cerebral venous sinus thrombosis; Protein S deficiency (HCC); hx of RUE DVT in setting of Protein S deficiency lifelong coumadin; Hormone replacement therapy (HRT); Uterine leiomyoma, unspecified location; Chronic anticoagulation Encounter for gyneco logical examination (general) (routine) without abnormal findings (Primary Dx); Encounter for screening mammogram for malignant neoplasm of breast; Screening for cervical cancer Start: 08-10-2022 E-mail encounter fro m caregiver Joslyn Carrion MD Work Phone: [facility] Start: 08-10-2022 [facility] visit new patient Joslyn ring MD Work Phone: [facility] Comment on above: new patient appt Start: 07-26-2022 End: 07-26-2022 Telemedicine consultation with patient Matthew Ureña PharmD Work Phone: [facility] Comment on above: Osteoporosis without current pathological fracture, unspecified osteoporosis type Start: 07-09-2022 Telephone encounter Financial Navigator Shin Work Phone: Financial Services Comment on above: Benefits Investigati on Start: 07-08-2022 End: 07-08-2022 Office outpatient visit 25 minutes Tayo Rodriguez MD Work Phone: [facility] Comment on above: Secondary hypercoagu lable state (CMS/HCC) (Primary Dx); Infection of parotid gland; Lymphadenopathy of head and neck; ILD (interstitial lung disease) (CMS/HCC); Blood clotting disorder (CMS/HCC); Protein S deficiency (CMS/HCC); MCTD (mixed connective tissue disease) (CMS/HCC); Rash Start: 06-30-2022 Telephone encounter Lora green MD Work Phone: [facility] Endocrinology, Diabetes, and Metabolism Comment on above: Insurance Authorizat ion (Authorization for ZOLEDRONIC ACID 5 MG/100 ML) Start: 06-29-2022 End: 06-29-2022 Office outpatient visit 25 minutes Tayo Rodriguez MD Work Phone: [facility] Comment on above: Tongue coating (Prim julio Dx); Pharyngitis, unspecified etiology; Lymphadenopathy of head and neck; Rash Start: 06-23-[address] Tayo Rodriguez [facility] [id number] Start: 06-22-2022 End: 06-22-2022 Patient encounter procedure Joslyn Carrion MD Work Phone: [facility] Comment on above: NS same day pt cx (P rimary Dx); Hormone replacement therapy (HRT); Encounter for screening mammogram for malignant neoplasm of breast; Premature ovarian failure; Blood clotting disorder (HCC); Osteoporosis, unspecified osteoporosis type, unspecified pathological fracture presence Start: 06-21-2022 End: 06-21-2022 Office outpatient visit 25 minutes Tayo Rodriguez MD Work Phone: [facility] Comment on above: Lymphadenopathy of h ead and neck (Primary Dx); Rash Start: 06-19-2022 End: 06-19-2022 Patient encounter procedure Madison Medina APRN.CNP Work Phone: [facility] Comment on above: Jaw pain (Primary Dx ) Start: 06-18-2022 Telephone encounter Lora green MD Work Phone: [facility] [place] Comment on above: Appointment Start: 06-17-2022 End: 06-17-2022 Emergency department patient visit [facility] Start: 06-17-2022 Telephone encounter Lora green MD Work Phone: [facility] Endocrinology, Diabetes, and Metabolism Comment on above: Results Start: 06-17-2022 End: 06-17-2022 Patient encounter procedure Schuyler MCMANUS [facility] Phone: [facility] Comment on above: Neck pain (Primary D x) Start: 06-16-2022 E-mail encounter marija brown caregiver Joslyn Carrion MD Work Phone: [facility] Start: 06-16-2022 Patient encounter procedure Joslyn Carrion MD Work Phone: [facility] Comment on above: Appointment Start: 06-15-2022 Rx Renewal Tayo Rodriguez Work Phone: [facility] Work Phone: Start: 06-01-2022 End: 06-01-2022 ambulatory [facility] Work Phone: Pulmonary [facility] Comment on above: Spirometry Start: 06-01-2022 End: 06-01-2022 Patient encounter procedure [facility] Work Phone: [facility] Comment on above: ILD (interstitial clarke ng disease) (HCC) (Primary Dx) Start: 05-31-2022 End: 05-31-2022 Subsequent hospital visit by physician Bone Density [facility] Work Phone: Radiology Comment on above: Encounter for screen ing for osteoporosis [Z13.820] Start: 05-24-2022 Telephone encounter Candie nicholson MD Work Phone: OB/Gynecology Comment on above: Orders Start: 05-10-2022 Office outpatient vi sit 25 minutes Tayo Rodriguez Work Phone: [facility] Work Phone: Start: 05-10-[address] Tayo Rodriguez [facility] [id number] Start: 03-17-2022 Rx Renewal Tayo Rodriguez Work Phone: [employer] [facility] Work Phone: Start: 02-17-2022 Telephone encounter Moris doherty APRN.MALE INFERTILITY SPECIALIST Work Phone: [facility] Comment on above: Results Start: 02-17-2022 End: 02-17-2022 Patient encounter procedure Moris Bernstein APRN.MALE INFERTILITY SPECIALIST Work Phone: [facility] Comment on above: Contusion of left lo wer leg, initial encounter (Primary Dx); History of blood clots Start: 02-15-2022 ambulatory Candie Gary Work Phone: OB/Gynecology Comment on above: Menopause specialist Start: 02-12-2022 Orders Only Alan tinoco MD Work Phone: Pulmonary Medicine Comment on above: ILD (interstitial clarke ng disease) (HCC) (Primary Dx) Start: 01-21-2022 End: 01-21-2022 Patient encounter procedure Madison Nithin FRAZIER.MALE INFERTILITY SPECIALIST Work Phone: Pulmonary Medicine Comment on above: ILD (interstitial clarke ng disease) (HCC) (Primary Dx); MCTD (mixed connective tissue disease) (HCC); Systemic lupus erythematosus with lung involvement, unspecified SLE type (HCC); Encounter for prophylactic measures, unspecified Start: 01-18-2022 End: 01-18-2022 Subsequent hospital visit by physician [facility] ([facility]) Work Phone: Cat Scan Comment on above: Interstitial pulmona ry disease (HCC) [J84.9] Start: 12-30-2021 End: 12-30-2021 Patient encounter procedure Candie Duron MD Work Phone: OB/Gynecology Comment on above: Encounter for gyneco logical examination (general) (routine) without abnormal findings (Primary Dx); Encounter for screening mammogram for breast cancer; Dense breast tissue on mammogram; Premature ovarian insufficiency Start: 12-30-2021 End: 12-30-2021 Patient encounter status Candie Duron MD Work Phone: OB/Gynecology Start: 12-22-2021 End: 12-22-2021 ambulatory Alan Rene MD Work Phone: Pulmonary Medicine Comment on above: ILD (interstitial clarke ng disease) (HCC) (Primary Dx); Interstitial pulmonary disease (HCC) Start: 12-22-2021 End: 12-22-2021 Telemedicine consultation with patient Alan Rene MD Work Phone: [place] [id number] Start: 12-14-2021 End: 12-14-2021 ambulatory [facility] [place] [address] Work Phone: Pulmonary Lab Comment on above: Spirometry Start: 12-14-2021 End: 12-14-2021 Patient encounter procedure Pulm [facility] [place] [address] Work Phone: [facility] Start: 11-03-2021 AUDIT [facility]: Start: 10-12-2021 End: 10-12-2021 Patient encounter procedure Alan Rene MD Work Phone: Pulmonary Medicine Comment on above: ILD (interstitial clarke ng disease) (HCC) (Primary Dx); Abnormal PFTs Start: 10-12-2021 End: 10-12-2021 ambulatory RONAK Brown Facility:[facility] Start: 08-10-2021 Refill Alan tinoco MD Work Phone: Pulmonary Medicine Comment on above: Refill Request Start: 08-10-2021 Telephone encounter Alan Rene MD Work Phone: Pulmonary Medicine Comment on above: Medication Problem Start: 07-31-[address] Tayo Rodriguez Facil [id number] Start: 07-31-2021 Office outpatient vi sit 15 minutes Tayo Rodriguez [facility]: Start: 07-31-2021 Patient encounter procedure [facility]o [facility]: [facility] Phone: Start: 07-23-2021 AUDIT Tayo Taliwal Work Phone: [facility] Work Phone: Start: 07-21-2021 AUDIT Tayo Taliwal Work Phone: [facility] Work Phone: Start: 05-13-2021 Chart Update Tayo Taliwal Work Phone: [facility] Work Phone: Start: 04-24-2021 AUDIT Tayo Taliwal Work Phone: [facility] Work Phone: Start: 04-20-2021 AUDIT Tayo Taliwal Work Phone: [facility] Work Phone: Start: 04-16-2021 AUDIT Tayo Taliwal Work Phone: [facility] Work Phone: Start: 02-12-2021 AUDIT Tayo Taliwal Work Phone: [facility] Work Phone: Start: 01-06-2021 AUDIT Tayo Taliwal Work Phone: -[facility] Work Phone: Start: 12-11-2020 Office outpatient ne w 45 minutes Tayo Taliwal Work Phone: -[facility] Work Phone: Start: 12-11-2020 Patient encounter procedure Tayo Taliwal Work Phone: [facility] [employer] [facility] Work Phone: Start: 08-29-2019 End: 08-29-2019 Patient encounter procedure Katelyn Burroughs PA-C Work Phone: [facility] Work Phone: Start: 04-16-2019 End: 04-17-2019 Patient encounter procedure TAYO RODRIGUEZ [facility] Procedures Date Procedure Procedure Detail Performing Clinician Start: 12-20-2024 Antibody screen CHACHA JOSE Comment on above: Order Comment: Speci men Type: BLOOD SPECIMEN Ordering Facility: [facility] Address: [address] [place] [address] Performed By: #### 5 [id number], HCG #### [facility] CLIA [id number] [address] [place] [address] Start: 07-30-2024 Spmtry w/vc expirato ry shala w/wo mxml vol vntj Alan Rene MD Work Phone: Start: 06-25-2024 Mammography [facility] 1 Start: 06-21-2024 Mammography [facility]o Start: 06-04-2024 Fungus identified in Unspecified specimen by Culture Tayo Rodriguez MD Work Phone: Start: 03-05-2024 Co diffusing capacity Naeem Rene MD Work Phone: Start: 09-21-2023 Culture fngi mold/ye ast prsmptv oth xcpt blood Tayo Rodriguez MD Work Phone: Start: 08-31-2023 Co diffusing capacity Naeem Rene MD Work Phone: Start: 03-30-2023 Spmtry w/vc expirato ry shala w/wo mxml vol vntj Alan Rene MD Work Phone: Start: 03-18-2023 Radex scapula complete Ranjit Perera NUCLEAR FUEL ENRICHMENT TECHNICIAN.MALE INFERTILITY SPECIALIST Work Phone: Start: 02-22-2023 Radiologic exam swal low function contrast study Hattie Crouch MD Work Phone: Start: 01-07-2023 Ct thorax w/o contra st material Kacie De Luna MD Work Phone: Start: 12-23-2022 Radiologic exam ches t 2 views Tayo Rodriguez MD Work Phone: Start: 12-13-2022 Co diffusing capacity A sheridan Rene MD Work Phone: Start: 08-12-2022 Microscopic observat ion [Identifier] in Cervix by Cyto stain Tayo Rodriguez MD Work Phone: Start: 06-29-2022 Influenza virus A an d B and SARS-CoV-2 (COVID-19) identified in Respiratory specimen by SARA with probe detection Tayo Rodriguez MD Work Phone: Start: 06-29-2022 End: 06-29-2022 Heterophile antibodies screen Tayo Rodriguez MD Work Phone: Start: 06-29-2022 Iaadiadoo streptococ cus group a Tayo Rodriguez MD Work Phone: Start: 06-23-2022 Ct soft tissue neck w/o contrast material Tayo Rodriguez MD Work Phone: Start: 06-16-2022 End: 07-08-2022 H/O: surgery History of parathyroid surgery Joslyn Carrion MD Work Phone: Start: 06-01-2022 Spmtry w/vc expirato ry shala w/wo mxml vol vntj Alan Rene MD Work Phone: Start: 05-31-2022 Dxa bone density annabel dy 1/> sites axial skel Candie Duron MD Work Phone: Start: 02-17-2022 Dup-scan xtr veins unilateral/limited study Moris Bernstein APRN.MALE INFERTILITY SPECIALIST Work Phone: Start: 01-18-2022 Ct thorax w/o contra st material Alan Rene MD Work Phone: Start: 12-14-2021 Co diffusing capacity A sheridan Rene MD Work Phone: Start: 07-08-2021 Mammography Tayo horner MD Work Phone: Start: 11-10-2020 Mammography Alan Méndez ra, MD Work Phone: Start: 08-29-2019 End: 08-29-2019 Blood pressure screening not performed - reason not given Katelyn Burroughs PA-C Work Phone: Start: 08-29-2019 End: 08-29-2019 BMI documented within normal parameters - no follow-up plan is required Katelyn Burroughs PA-C Work Phone: Start: 08-29-2019 End: 08-29-2019 Documentation of current medications Katelyn Burroughs PA-C Work Phone: Start: 08-29-2019 End: 08-29-2019 Pain assessment documented as positive - follow-up documented Katelyn Burroughs PA-C Work Phone: Start: 08-29-2019 End: 08-29-2019 Tobacco non-user Katelyn Burroughs PA-C Work Phone: H/O: surgery History of parathyroid surgery Lora Rodrigues MD Work Phone: H/O: surgery History of parathyroid surgery Lora Rodrigues MD Work Phone: H/O: surgery History of parathyroid surgery Lora Rodrigues MD Work Phone: NEGATED: Highlighted rowStart: 08-29-2019 End: 08-29-2019 Documentation of current medications Desire Miki ABORIGINAL EDUCATION TEACHER Plan of Treatment Date Care Activity Detail Author Start: 2040 RSV Immunization aged 60 or older (1 - 1-dose 60+ series) RSV Immunization aged 60 or older (1 - 1-dose 60+ series) [employer] Start: 08-13-2027 HPV TESTING HPV TESTING [facility] Start: 08-13-2027 PAP TESTING PAP TESTING [facility] Start: 08-13-2027 Screening for malignant neoplasm of cervix [facility] Start: 07-05-2026 DTaP/Tdap/Td Vaccines (3 - Td or Tdap) DTaP/Tdap/Td Vaccines (3 - Td or Tdap) [facility] Start: 07-05-2026 Urine microalbumin profile [facility] Start: 12-21-2025 Yearly Adult Physical Yearly Adult Physical [facility] Start: 10-31-2025 End: 10-31-2025 Patient encounter procedure 10/31/2025 2:00 PM EDT Office Visit OB/Gynecology [address] [place] [address] Carmella Cabrera APRN.MALE INFERTILITY SPECIALIST [address] [place] [address] Annual OB/Gynecology Comment on above: Annual Start: 08-12-2025 Screening for malignant neoplasm of cervix [facility] Start: 07-22-2025 End: 07-22-2025 Patient encounter procedure 07/22/2025 1:10 PM EDT Appointment Mammogram [address] [place] [address] : Encounter for gynecological examination (general) (routine) without abnormal findings [Z01.419]; Encounter for screening mammogram for breast cancer [Z12.31] Mammogram Comment on above: : Encounter for gynecological examinatio n (general) (routine) without abnormal findings [Z01.419]; Encounter for screening mammogram for breast cancer [Z12.31] Start: 06-25-2025 Screening for malignant neoplasm of breast [facility] Start: 06-21-2025 Screening for malignant neoplasm of breast Mammogram [facility] Start: 2025 COLORECTAL CANCER SCREENING COLORECTAL CANCER SCREENING [facility] Start: 2025 FECAL OCCULT BLOOD FECAL OCCULT BLOOD [facility] Start: 04-01-2025 End: 04-01-2025 Patient encounter procedure 04/01/2025 2:40 PM EST Office Visit Pulmonary Medicine [address] [address] Alan Rene MD [address] [place] [address] 6 month follow up Pulmonary Medicine Comment on above: 6 month follow up Start: 03-28-2025 End: 03-28-2025 Patient encounter procedure 03/28/2025 2:40 PM EST Office Visit [facility] [address] [place] [phone] Tayo Rodriguez MD [address] [place] [address] [facility] Start: 02-11-2025 End: 02-11-2025 Telemedicine consultation with patient 02/11/2025 3:00 PM EDT Telemedicine [facility] [address] [place] [id number] [facility] [address] [place] [address] [facility] Start: 01-29-2025 End: 01-29-2025 ambulatory Pulmonary Lab Comment on above: Pulmonary arterial hypertension (HCC) [I 27.21] Start: 01-28-2025 End: 01-28-2025 Patient encounter procedure 01/28/2025 1:40 PM EDT Appointment Radiology [address] [place] [id number] [facility] Radiology Comment on above: [facility] Start: 01-23-2025 End: 01-23-2026 CT Abdomen WO contrast CT abdomen pelvis wo IV contrast Imaging STAT Left lateral abdominal pain Nausea Diarrhea of presumed infectious origin Left lower quadrant abdominal tenderness with rebound tenderness Other iron deficiency anemia Expected: 01/23/2025, Expires: 01/23/2026 [facility] Service Area Work Phone: Comment on above: Expected: 01/23/2025, Expires: Start: 12-20-2024 End: 12-20-2025 25-hydroxyvitamin D3 [Mass/volume] in Serum or Plasma Vitamin D 25-Hydroxy,Total (for eval of Vitamin D levels) Lab Routine Vitamin D deficiency Expected: 12/20/2024 (Approximate), Expires: 12/20/2025 [facility] Work Phone: Comment on above: Expected: 12/20/2024 (Approximate), Expi res: 12/20/2025 Start: 12-20-2024 End: 12-20-2025 CBC W Auto Differential panel - Blood CBC and Auto Differential Lab Routine Encounter for annual general medical examination without abnormal findings in adult Expected: 12/20/2024 (Approximate), Expires: 12/20/2025 [facility] Work Phone: Comment on above: Expected: 12/20/2024 (Approximate), Expi res: 12/20/2025 Start: 12-20-2024 End: 12-20-2025 Cobalamin (Vitamin B12) [Mass/volume] in Serum or Plasma Vitamin B12 Lab Routine Vitamin B 12 deficiency Expected: 12/20/2024 (Approximate), Expires: 12/20/2025 [facility] Work Phone: Comment on above: Expected: 12/20/2024 (Approximate), Expi res: 12/20/2025 Start: 12-20-2024 End: 12-20-2025 Comprehensive metabolic 2000 panel - Serum or Plasma Comprehensive Metabolic Panel Lab Routine Encounter for annual general medical examination without abnormal findings in adult Expected: 12/20/2024 (Approximate), Expires: 12/20/2025 [facility] Work Phone: Comment on above: Expected: 12/20/2024 (Approximate), Expi res: 12/20/2025 Start: 12-20-2024 End: 12-20-2025 Hemoglobin A1c/Hemoglobin.total in Blood Hemoglobin A1C Lab Routine Encounter for annual general medical examination without abnormal findings in adult Screening for diabetes mellitus Hyperglycemia Expected: 12/20/2024 (Approximate), Expires: 12/20/2025 [facility] Work Phone: Comment on above: Expected: 12/20/2024 (Approximate), Expi res: 12/20/2025 Start: 12-20-2024 End: 12-20-2025 Lipid 1996 panel - Serum or Plasma Lipid Panel Lab Routine Encounter for annual general medical examination without abnormal findings in adult Expected: 12/20/2024 (Approximate), Expires: 12/20/2025 [facility] Service Area Work Phone: Comment on above: Expected: 12/20/2024 (Approximate), Expi res: 12/20/2025 Start: 12-20-2024 End: 12-20-2025 TSH with reflex to Free T4 if abnormal TSH with reflex to Free T4 if abnormal Lab Routine Encounter for annual general medical examination without abnormal findings in adult Vitamin D deficiency Vitamin B 12 deficiency Expected: 12/20/2024 (Approximate), Expires: 12/20/2025 [facility] Work Phone: Comment on above: Expected: 12/20/2024 (Approximate), Expi res: 12/20/2025 Start: 12-17-2024 COVID-19 Vaccine ( season) COVID-19 Vaccine ( - season) [facility] Start: 12-17-2024 COVID-19 Vaccine (7 - Moderna risk season) COVID-19 Vaccine (7 - Moderna risk season) [facility] Start: 12-17-2024 Influenza vaccination Influenza Vaccine (#1) [facility] Start: 11-19-2024 End: 11-19-2024 Infusion Center 11/19/2024 9:30 AM EDT Infusion Center Hematology/Oncology [address] [place] [address] START COLLIN/DR RODRIGUES ORDERING* Hematology/Oncology Comment on above: START COLLIN/DR RODRIGUES ORDERING* Start: 11-16-2024 Influenza vaccination Influenza Vaccine (#1) [facility] Start: 10-04-2024 End: 10-04-2024 Patient encounter procedure 10/04/2024 8:50 AM EDT Office Visit Cardiology [address] [place] [address] Disease / Condition: Cardiology Comment on above: Disease / Condition: Start: 10-03-2024 End: 10-03-[address] [facility] Comment on above: START RAISAT/DR RODRIGUES ORDERING* Start: 09-26-2024 End: 12-26-2024 25-hydroxyvitamin D3 [Mass/volume] in Serum or Plasma VITAMIN D 25 HYDROXY Lab Routine Vitamin D deficiency Expected: 09/26/2024, Expires: 12/26/2024 [facility] Comment on above: Expected: 09/26/2024, Expires: Start: 09-26-2024 End: 12-26-2024 Basic metabolic 2000 panel - Serum or Plasma BASIC METABOLIC PANEL Lab Routine Vitamin D deficiency Expected: 09/26/2024, Expires: 12/26/2024 [facility] Comment on above: Expected: 09/26/2024, Expires: Start: 09-26-2024 End: 12-26-2024 Parathyrin.intact [Mass/volume] in Serum or Plasma PTH INTACT Lab Routine Osteoporosis without current pathological fracture, unspecified osteoporosis type Expected: 09/26/2024, Expires: 12/26/2024 [facility] Work Phone: Comment on above: Expected: 09/26/2024, Expires: Start: 09-26-2024 End: 09-26-2024 Patient encounter procedure 09/26/2024 10:00 AM EDT [facility] General Endocrinology, Diabetes, and Metabolism [address] [place], [place] [id number] Lora Rodrigues MD [address] [place] [address] osteoporosis [facility] General Endocrinology, Diabetes, and Metabolism Comment on above: osteoporosis Start: 09-21-2024 Yearly Adult Physical Yearly Adult Physical [facility] Start: 07-30-2024 End: 07-30-2024 Patient encounter procedure 07/30/2024 3:00 PM EDT Office Visit Pulmonary Medicine [address] [facility] [address] [place] [address] Alan Rene MD [address] [place] [address] 4 MONTH Pulmonary Medicine Comment on above: 4 MONTH Start: 07-30-2024 End: 07-30-2024 ambulatory Pulmonary Lab Comment on above: PFT Start: 07-12-2024 Covid-19 Vaccine (8 - Moderna risk season) Covid-19 Vaccine (8 - Moderna risk season) [facility] Start: 06-21-2024 End: 06-21-2024 Patient encounter procedure 06/21/2024 1:00 PM EST Appointment [facility] [address] [place] [phone] [facility] Start: 06-04-2024 End: 06-04-2025 25-hydroxyvitamin D3 [Mass/volume] in Serum or Plasma Vitamin D 25-Hydroxy,Total (for eval of Vitamin D levels) Lab Routine Other osteoporosis without current pathological fracture Expected: 06/04/2024 (Approximate), Expires: 06/04/2025 [facility] Work Phone: Comment on above: Expected: 06/04/2024 (Approximate), Expi res: 06/04/2025 Start: 06-04-2024 End: 06-04-2025 CBC W Auto Differential panel - Blood CBC and Auto Differential Lab Routine Encounter for annual general medical examination without abnormal findings in adult Expected: 06/04/2024 (Approximate), Expires: 06/04/2025 [facility] Work Phone: Comment on above: Expected: 06/04/2024 (Approximate), Expi res: 06/04/2025 Start: 06-04-2024 End: 06-04-2025 Cobalamin (Vitamin B12) [Mass/volume] in Serum or Plasma Vitamin B12 Lab Routine Anemia, unspecified type Expected: 06/04/2024 (Approximate), Expires: 06/04/2025 [facility] Work Phone: Comment on above: Expected: 06/04/2024 (Approximate), Expi res: 06/04/2025 Start: 06-04-2024 End: 06-04-2025 Comprehensive metabolic 2000 panel - Serum or Plasma Comprehensive Metabolic Panel Lab Routine Encounter for annual general medical examination without abnormal findings in adult Expected: 06/04/2024 (Approximate), Expires: 06/04/2025 [facility] Work Phone: Comment on above: Expected: 06/04/2024 (Approximate), Expi res: 06/04/2025 Start: 06-04-2024 End: 06-04-2025 DBT Breast - bilateral BI mammo bilateral screening tomosynthesis Imaging Routine Encounter for screening mammogram for malignant neoplasm of breast Expected: 06/04/2024 (Approximate), Expires: 06/04/2025 [facility] Service Area Work Phone: Comment on above: Expected: 06/04/2024 (Approximate), Expi res: 06/04/2025 Start: 06-04-2024 End: 06-04-2025 DXA Skeletal system Views for bone density XR DEXA bone density Imaging Routine Encounter for osteoporosis screening in asymptomatic postmenopausal patient Other osteoporosis without current pathological fracture Expected: 06/04/2024 (Approximate), Expires: 06/04/2025 [facility] Work Phone: Comment on above: Expected: 06/04/2024 (Approximate), Expi res: 06/04/2025 Start: 06-04-2024 End: 06-04-2025 Folate [Mass/volume] in Serum or Plasma Folate Lab Routine Anemia, unspecified type Expected: 06/04/2024 (Approximate), Expires: 06/04/2025 [facility] Work Phone: Comment on above: Expected: 06/04/2024 (Approximate), Expi res: 06/04/2025 Start: 06-04-2024 End: 06-04-2025 Lipid 1996 panel - Serum or Plasma Lipid Panel Lab Routine Encounter for annual general medical examination without abnormal findings in adult Expected: 06/04/2024 (Approximate), Expires: 06/04/2025 [facility] Work Phone: Comment on above: Expected: 06/04/2024 (Approximate), Expi res: 06/04/2025 Start: 06-04-2024 End: 06-04-2025 TSH with reflex to Free T4 if abnormal TSH with reflex to Free T4 if abnormal Lab Routine Encounter for screening mammogram for malignant neoplasm of breast Encounter for osteoporosis screening in asymptomatic postmenopausal patient Other osteoporosis without current pathological fracture Anxiety Encounter for annual general medical examination without abnormal findings in adult Expected: 06/04/2024 (Approximate), Expires: 06/04/2025 [facility] Work Phone: Comment on above: Expected: 06/04/2024 (Approximate), Expi res: 06/04/2025 Start: 05-31-2024 Screening for osteoporosis Bone Density Scan [facility] Start: 03-09-2024 Covid-19 Vaccine () Covid-19 Vaccine () [facility] Start: 03-05-2024 End: 03-05-2024 Patient encounter procedure 03/05/2024 3:20 PM EST Office Visit Pulmonary Medicine [address] [facility] [address] [place] [address] Alan Rene MD [address] [place] [address] ILD (interstitial lung disease) (HCC) [J84.9] Pulmonary Medicine Comment on above: ILD (interstitial lung disease) (HCC) [J 84.9] Start: 03-05-2024 End: 03-05-2024 ambulatory Pulmonary Lab Comment on above: ILD (interstitial lung disease) (HCC) [J 84.9] Start: 12-18-2023 Influenza vaccination Influenza Vaccine (#1) [facility] Start: 11-04-2023 End: 11-04-2023 ambulatory 11/04/2023 9:00 AM EDT Visit (SP) Office Hematology/Oncology [address] [place] [address] 2ND Hematology/Oncology Comment on above: 2ND Start: 10-21-2023 End: 09-20-2024 DBT Breast - bilateral BI mammo bilateral screening tomosynthesis Imaging Routine Encounter for screening mammogram for malignant neoplasm of breast Expected: 10/21/2023, Expires: 09/20/2024 [facility] Work Phone: Comment on above: Expected: 10/21/2023, Expires: Start: 09-22-2023 End: 09-20-2024 25-hydroxyvitamin D3 [Mass/volume] in Serum or Plasma Vitamin D 25-Hydroxy,Total (for eval of Vitamin D levels) Lab Routine Vitamin D deficiency Expected: 09/22/2023 (Approximate), Expires: 09/20/2024 [facility] Work Phone: Comment on above: Expected: 09/22/2023 (Approximate), Expi res: 09/20/2024 Start: 09-22-2023 End: 09-20-2024 CBC W Auto Differential panel - Blood CBC and Auto Differential Lab Routine Encounter for annual general medical examination without abnormal findings in adult Expected: 09/22/2023 (Approximate), Expires: 09/20/2024 [facility] Work Phone: Comment on above: Expected: 09/22/2023 (Approximate), Expi res: 09/20/2024 Start: 09-22-2023 End: 09-20-2024 Cobalamin (Vitamin B12) [Mass/volume] in Serum or Plasma Vitamin B12 Lab Routine Vitamin B 12 deficiency Expected: 09/22/2023 (Approximate), Expires: 09/20/2024 [facility] Work Phone: Comment on above: Expected: 09/22/2023 (Approximate), Expi res: 09/20/2024 Start: 09-22-2023 End: 09-20-2024 Comprehensive metabolic 2000 panel - Serum or Plasma Comprehensive Metabolic Panel Lab Routine Encounter for annual general medical examination without abnormal findings in adult Expected: 09/22/2023 (Approximate), Expires: 09/20/2024 [facility] Work Phone: Comment on above: Expected: 09/22/2023 (Approximate), Expi res: 09/20/2024 Start: 09-22-2023 End: 09-20-2024 Hemoglobin A1c/Hemoglobin.total in Blood Hemoglobin A1C Lab Routine Hyperglycemia Expected: 09/22/2023 (Approximate), Expires: 09/20/2024 [facility] Work Phone: Comment on above: Expected: 09/22/2023 (Approximate), Expi res: 09/20/2024 Start: 09-22-2023 End: 09-20-2024 Hepatitis C virus Ab [Presence] in Serum Hepatitis C Antibody Lab Routine Encounter for annual general medical examination without abnormal findings in adult Expected: 09/22/2023 (Approximate), Expires: 09/20/2024 [facility] Work Phone: Comment on above: Expected: 09/22/2023 (Approximate), Expi res: 09/20/2024 Start: 09-22-2023 End: 09-20-2024 HIV 1+2 Ab+HIV1 p24 Ag [Presence] in Serum or Plasma by Immunoassay HIV 1/2 Antigen/Antibody Screen with Reflex to Confirmation Lab Routine Encounter for annual general medical examination without abnormal findings in adult Expected: 09/22/2023 (Approximate), Expires: 09/20/2024 [facility] Work Phone: Comment on above: Expected: 09/22/2023 (Approximate), Expi res: 09/20/2024 Start: 09-22-2023 End: 09-20-2024 Lipid 1996 panel - Serum or Plasma Lipid Panel Lab Routine Encounter for annual general medical examination without abnormal findings in adult Expected: 09/22/2023 (Approximate), Expires: 09/20/2024 [facility] Service Area Work Phone: Comment on above: Expected: 09/22/2023 (Approximate), Expi res: 09/20/2024 Start: 09-22-2023 End: 09-20-2024 TSH with reflex to Free T4 if abnormal TSH with reflex to Free T4 if abnormal Lab Routine Hyperparathyroidism (Multi) Expected: 09/22/2023 (Approximate), Expires: 09/20/2024 [facility] Work Phone: Comment on above: Expected: 09/22/2023 (Approximate), Expi res: 09/20/2024 Start: 08-31-2023 End: 08-31-2023 Patient encounter procedure 08/31/2023 11:40 AM EDT Office Visit Pulmonary Medicine [address] [place], [place] [id number] Alan Rene MD [address] [place], [place] [id number] follow up Pulmonary Medicine Comment on above: follow up Start: 08-31-2023 End: 08-31-2023 ambulatory Pulmonary Lab Comment on above: pft Start: 08-16-2023 End: 11-15-2023 25-hydroxyvitamin D3 [Mass/volume] in Serum or Plasma VITAMIN D 25 HYDROXY Lab Routine Osteoporosis without current pathological fracture, unspecified osteoporosis type Vitamin D deficiency Expected: 08/16/2023, Expires: 11/15/2023 [facility] Comment on above: Expected: 08/16/2023, Expires: Start: 08-16-2023 End: 11-15-2023 Basic metabolic 2000 panel - Serum or Plasma BASIC METABOLIC PANEL Lab Routine Osteoporosis without current pathological fracture, unspecified osteoporosis type Vitamin D deficiency Expected: 08/16/2023, Expires: 11/15/2023 [facility] Work Phone: Comment on above: Expected: 08/16/2023, Expires: Start: 08-16-2023 End: 11-15-2023 Parathyrin.intact [Mass/volume] in Serum or Plasma PTH INTACT Lab Routine Osteoporosis without current pathological fracture, unspecified osteoporosis type Vitamin D deficiency Expected: 08/16/2023, Expires: 11/15/2023 [facility] Comment on above: Expected: 08/16/2023, Expires: Start: 08-13-2023 Screening for malignant neoplasm of cervix Cervical Cancer Screening [facility] Start: 06-15-2023 PNEUMOCOCCAL (2 - PCV) PNEUMOCOCCAL (2 - PCV) [facility] Comment on above: Postponed from 02/09/2008 (Declined at t his time) Start: 06-15-2023 Pneumococcal vaccination Pneumococcal Vaccine (2 - PCV) [facility] Comment on above: Postponed from 02/09/2008 (Declined at t his time) Start: 06-15-2023 SHINGRIX VACCINE (1 of 2) SHINGRIX VACCINE (1 of 2) [facility] Comment on above: Postponed from 1999 (Declined at t his time) Start: 05-31-2023 ANNUAL PCP TEAM CHRONIC DISEASE VISIT ANNUAL PCP TEAM CHRONIC DISEASE VISIT [facility] Start: 05-31-2023 COVID-19 Vaccine () COVID-19 Vaccine () [facility] Start: 05-31-2023 Covid-19 Vaccine () Covid-19 Vaccine () [facility] Start: 05-31-2023 Screening for osteoporosis Bone Density Scan [facility] Start: 04-18-2023 Behavioral Health Screening Behavioral Health Screening [facility] Start: 04-17-2023 DEPRESSION ASSESSMENT DEPRESSION ASSESSMENT [facility] Comment on above: Postponed from 04/18/2022 (Declined at t his time) Start: 03-24-2023 End: 12-24-2023 CT Chest WO contrast CT chest wo IV contrast Imaging Routine Wheezing SOB (shortness of breath) Abnormal chest x-ray Pneumonitis Bronchiectasis with acute exacerbation (CMS/HCC) Cough, unspecified type Expected: 03/24/2023 (Approximate), Expires: 12/24/2023 [facility] Service Area Work Phone: Comment on above: Expected: 03/24/2023 (Approximate), Expi res: 12/24/2023 Start: 02-15-2023 End: 04-17-2023 25-hydroxyvitamin D3 [Mass/volume] in Serum or Plasma VITAMIN D 25 HYDROXY Lab Routine Vitamin D deficiency Osteoporosis without current pathological fracture, unspecified osteoporosis type Expected: 02/15/2023 (Approximate), Expires: 04/17/2023 [facility] Work Phone: Comment on above: Expected: 02/15/2023 (Approximate), Expi res: 04/17/2023 Start: 02-15-2023 End: 04-17-2023 Parathyrin.intact [Mass/volume] in Serum or Plasma PTH INTACT BLD Lab Routine Vitamin D deficiency Osteoporosis without current pathological fracture, unspecified osteoporosis type Expected: 02/15/2023 (Approximate), Expires: 04/17/2023 [facility] Work Phone: Comment on above: Expected: 02/15/2023 (Approximate), Expi res: 04/17/2023 Start: 01-20-2023 End: 01-21-2024 RF Esophagus Views W barium contrast PO FL esophagus barium swallow Imaging Routine Gastro-esophageal reflux disease without esophagitis 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 Expected: 01/20/2023, Expires: 01/21/2024 [facility] [employer] Comment on above: Expected: 01/20/2023, Expires: Start: 01-20-2023 End: 01-21-2024 RF videography Hypopharynx and Esophagus Views for swallowing function W speech and W barium contrast PO FL modified barium with video and speech Imaging Routine Gastro-esophageal reflux disease without esophagitis 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 Expected: 01/20/2023, Expires: [facility] Comment on above: Expected: 01/20/2023, Expires: Start: 12-30-2022 End: 12-30-2022 Patient encounter procedure 12/30/2022 11:40 AM EDT Office Visit [facility] [address] [place] [id number] Tayo Rodriguez MD [address] [place] [address] [facility] Start: 12-17-2022 COVID-19 Vaccine () COVID-19 Vaccine () [facility] Start: 12-17-2022 Covid-19 Vaccine () Covid-19 Vaccine () [facility] Start: 12-17-2022 Influenza vaccination [facility] Start: 11-28-2022 HPV TESTING HPV TESTING [facility] Start: 11-28-2022 PAP TESTING PAP TESTING [facility] Start: 10-21-2022 End: 12-21-2022 CBC W Auto Differential panel - Blood CBC + DIFF Lab Routine ILD (interstitial lung disease) (HCC) Expected: 10/21/2022, Expires: 12/21/2022 [facility] Work Phone: Comment on above: Expected: 10/21/2022, Expires: Start: 10-15-2022 Influenza vaccination INFLUENZA (#1) [facility] Comment on above: Postponed from 12/17/2021 (Declined at t his time) Start: 08-12-2022 End: 10-12-2022 GLIADIN (DEAMINATED) ABS GLIADIN (DEAMINATED) ABS Lab Routine hx of low vitamin D Osteoporosis without current pathological fracture, unspecified osteoporosis type Expected: 08/12/2022, Expires: 10/12/2022 [facility] Work Phone: Comment on above: Expected: 08/12/2022, Expires: Start: 08-12-2022 End: 10-12-2022 IgA [Mass/volume] in Serum or Plasma IGA BLD Lab Routine hx of low vitamin D Osteoporosis without current pathological fracture, unspecified osteoporosis type Expected: 08/12/2022, Expires: 10/12/2022 [facility] Work Phone: Comment on above: Expected: 08/12/2022, Expires: 3 Start: 08-12-2022 End: 10-12-2022 PROTEIN ELECTROPHORESIS SERUM W/INTERP PROTEIN ELECTROPHORESIS SERUM W/INTERP Lab Routine Osteoporosis without current pathological fracture, unspecified osteoporosis type Expected: 08/12/2022, Expires: 10/12/2022 [facility] Work Phone: Comment on above: Expected: 08/12/2022, Expires: Start: 08-12-2022 End: 10-12-2022 Tissue transglutaminase IgA Ab [Units/volume] in Serum TRANSGLUTAMINASE IGA Lab Routine hx of low vitamin D Osteoporosis without current pathological fracture, unspecified osteoporosis type Expected: 08/12/2022, Expires: 10/12/2022 [facility] Work Phone: Comment on above: Expected: 08/12/2022, Expires: 3 Start: 07-13-2022 End: 06-15-2023 25-hydroxyvitamin D3 [Mass/volume] in Serum or Plasma VITAMIN D 25 HYDROXY Lab Routine Osteoporosis, unspecified osteoporosis type, unspecified pathological fracture presence Expected: 07/13/2022, Expires: 06/15/2023 [facility] Work Phone: Comment on above: Expected: 07/13/2022, Expires: 4 Start: 07-13-2022 End: 06-15-2023 Estradiol (E2) [Mass/volume] in Serum or Plasma ESTRADIOL-17B BLD Lab Routine Premature ovarian failure Expected: 07/13/2022, Expires: 06/15/2023 [facility] Work Phone: Comment on above: Expected: 07/13/2022, Expires: 4 Start: 07-13-2022 End: 06-15-2023 Follitropin [Units/volume] in Serum or Plasma FSH BLD Lab Routine Premature ovarian failure Expected: 07/13/2022, Expires: 06/15/2023 [facility] Work Phone: Comment on above: Expected: 07/13/2022, Expires: 4 Start: 07-13-2022 End: 06-15-2023 Thyrotropin [Units/volume] in Serum or Plasma TSH BLD Lab Routine Osteoporosis, unspecified osteoporosis type, unspecified pathological fracture presence Expected: 07/13/2022, Expires: 06/15/2023 [facility] Work Phone: Comment on above: Expected: 07/13/2022, Expires: 4 Start: 07-08-2022 Screening for malignant neoplasm of breast Mammogram [facility] Start: 06-23-2022 End: 08-23-2022 Hepatitis C virus Ab [Presence] in Serum HEP C AB IA W/CONF SCRN Lab Routine Premature ovarian failure Expected: 06/23/2022, Expires: 08/23/2022 [facility] Work Phone: Comment on above: Expected: 06/23/2022, Expires: 3 Start: 04-18-2022 DEPRESSION ASSESSMENT DEPRESSION ASSESSMENT [facility] Start: 03-22-2022 COVID-19 Vaccine (5 - Booster for Moderna series) COVID-19 Vaccine (5 - Booster for Moderna series) [facility] Start: 03-22-2022 COVID-19 Vaccine (5 - Moderna risk series) COVID-19 Vaccine (5 - Moderna risk series) [facility] Start: 03-22-2022 COVID-19 VACCINE (6 - Moderna risk series) COVID-19 VACCINE (6 - Moderna risk series) [facility] Start: 02-20-2022 COVID-19 VACCINE (5 - Booster for Moderna series) COVID-19 VACCINE (5 - Booster for Moderna series) [facility] Start: 01-05-2022 End: 03-07-2022 CBC W Auto Differential panel - Blood CBC + DIFF Lab Routine ILD (interstitial lung disease) (HCC) Expected: 01/05/2022, Expires: 03/07/2022 [facility] Work Phone: Comment on above: Expected: 01/05/2022, Expires: 2 Start: 12-17-2021 Influenza vaccination [facility] Start: 12-15-2021 COVID-19 VACCINE (5 - Booster for Moderna series) COVID-19 VACCINE (5 - Booster for Moderna series) [facility] Start: 12-14-2021 PHYSICAL, Provider: Tayo Rodriguez, Status: Pen, Time: 1:00 PM PHYSICAL, Provider: Tayo Rodriguez, Status: Pen, Time: 1:00 PM [facility] Work Phone: Start: 11-10-2021 Mammography [facility] Start: 11-10-2021 Screening for malignant neoplasm of breast Mammogram Screening [facility] Start: 04-18-2021 DEPRESSION ASSESSMENT DEPRESSION ASSESSMENT [facility] Start: 03-11-2021 COVID-19 VACCINE (4 - Booster for Moderna series) COVID-19 VACCINE (4 - Booster for Moderna series) [facility] Start: 01-20-2021 ANNUAL PCP TEAM CHRONIC DISEASE VISIT ANNUAL PCP TEAM CHRONIC DISEASE VISIT [facility] Start: 2020 Screening for malignant neoplasm of breast Mammogram [facility] Start: 08-29-2019 End: 08-29-2019 Appointment Appointment [facility] Work Phone: Start: 04-01-2012 COLORECTAL CANCER SCREENING COLORECTAL CANCER SCREENING [facility] Start: 2010 Screening for malignant neoplasm of cervix HPV/Cotest [facility] Start: 05-01-2008 Hepatitis B Vaccines (3 of 3 - 19+ 3-dose series) Hepatitis B Vaccines (3 of 3 - 19+ 3-dose series) [facility] Start: 04-03-2008 Hepatitis B Vaccines (2 of 3 - 19+ 3-dose series) Hepatitis B Vaccines (2 of 3 - 19+ 3-dose series) [facility] Start: 04-02-2008 HEPATITIS B (2 of 3 - 3-dose series) [facility] Start: 02-09-2008 PNEUMOCOCCAL (2 - PCV) PNEUMOCOCCAL (2 - PCV) [facility] Start: 02-09-2008 Pneumococcal vaccination Pneumococcal Vaccine (2 of 2 - PCV) [facility] Start: 02-09-2008 Pneumococcal Vaccine: Pediatrics (0 to 5 Years) and At-Risk Patients (6 to 64 Years) (2 - PCV) Pneumococcal Vaccine: Pediatrics (0 to 5 Years) and At-Risk Patients (6 to 64 Years) (2 - PCV) [facility] Start: 02-09-2008 Pneumococcal Vaccine: Pediatrics (0 to 5 Years) and At-Risk Patients (6 to 64 Years) (2 of 2 - PCV) Pneumococcal Vaccine: Pediatrics (0 to 5 Years) and At-Risk Patients (6 to 64 Years) (2 of 2 - PCV) [facility] Start: 02-09-2008 Pneumococcal Vaccine: Pediatrics and At-Risk Adult Patients (2 of 2 - PCV) Pneumococcal Vaccine: Pediatrics and At-Risk Adult Patients (2 of 2 - PCV) [facility] Start: 05-26-2007 MMR Vaccines (1 of 1 - Standard series) MMR Vaccines (1 of 1 - Standard series) [facility] Start: 2007 HPV Vaccine (1 - 3-dose SCDM series) HPV Vaccine (1 - 3-dose SCDM series) [facility] Start: 2007 HPV Vaccines (1 - 3-dose standard series) [facility] Start: 2001 Screening for malignant neoplasm of cervix [facility] Start: 1999 SHINGRIX VACCINE (1 of 2) SHINGRIX VACCINE (1 of 2) [facility] Start: 1999 Zoster Vaccines (1 of 2) Zoster Vaccines (1 of 2) [facility] Start: 1998 Anxiety Screening Anxiety Screening [facility] Start: 1998 Colonoscopy COLONOSCOPY [facility] Start: 1998 Depression Screening Depression Screening [facility] Start: 1998 Diabetes mellitus screening Diabetes Screening [facility] Start: 1998 HEPATITIS C SCREENING HEPATITIS C SCREENING [facility] Start: 1998 Hepatitis C screening Hepatitis C Screening [facility] Start: 1998 HIV SCREENING HIV SCREENING [facility] Start: 1993 Varicella vaccination Varicella Vaccines (1 of 2 - 13+ 2-dose series) [facility] Start: 1992 Adult depression screening assessment DEPRESSION SCREENING [facility] Start: 1987 DTaP/Tdap/Td Vaccines (1 - Tdap) DTaP/Tdap/Td Vaccines (1 - Tdap) [facility] Start: 1986 Pneumococcal Vaccine: Pediatrics (0 to 5 Years) and At-Risk Patients (6 to 64 Years) (1 - PCV) Pneumococcal Vaccine: Pediatrics (0 to 5 Years) and At-Risk Patients (6 to 64 Years) (1 - PCV) [facility] Start: 1981 MMR Vaccines (1 of 1 - Standard series) MMR Vaccines (1 of 1 - Standard series) [facility] Start: 1981 Varicella vaccination Varicella Vaccines (1 of 2 - 2-dose childhood series) [facility] Start: 1980 HIV screening HIV Screening [facility] Start: 1980 Lipid panel Lipid Panel [facility] Start: 1980 Screening for osteoporosis Bone Density Scan [facility] [employer] Start: 1980 Yearly Adult Physical Yearly Adult Physical [facility] CALCIUM 24 HR URINE CALCIUM 24 H R URINE Lab Routine Osteoporosis, unspecified osteoporosis type, unspecified pathological fracture presence Ordered: 06/23/2022 [facility] Work Phone: Comment on above: Ordered: 06/23/2022 CALCIUM 24 HR URINE CALCIUM 24 H R URINE Lab Routine Osteoporosis without current pathological fracture, unspecified osteoporosis type Ordered: 08/12/2022 [facility] Work Phone: Comment on above: Ordered: 08/12/2022 End: 02-12-2023 CBC W Auto Differential panel - Blood CBC + DIFF Lab Routine ILD (interstitial lung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 Patient ID: Tamy Vazquez is a 44 y.o. female who presents for ER Follow-up. History of Present Illness Tamy Vazquez is a 44 year old female who presents with abdominal pain and bloating. She experiences intermittent abdominal pain primarily in the left flank area, under the ribs. The pain is better today compared to yesterday, but she is uncertain how long this improvement will last. Movement exacerbates the pain, while Tylenol provides some relief. She has significant bloating, and eating worsens her symptoms. She also experiences reflux, particularly after eating. She took a probiotic yesterday and again this morning, which she believes may have helped. Her symptoms began with diarrhea on Tuesday morning, described as 'nasty' but not watery. The diarrhea was most severe on Tuesday and Tuesday, and since then, she has had bowel movements once a day without diarrhea. She visited urgent care yesterday, where a urine test was performed. She has not noticed any blood in her stools. She is currently taking Nexium 40 mg in the morning for acid reflux, which is her regular dose. Recent blood work showed a low hemoglobin level, which is new for her as she is postmenopausal and does not get periods. Her sed rate is typically elevated at 45, which is normal for her, but her protein was also low. 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 No nausea but reports reflux. She does not drink much milk but is open to trying Kefir as a probiotic. Review of Systems ROS otherwise negative aside from what was mentioned above in HPI. Objective LMP (LMP Unknown) Physical Exam GENERAL: Alert, cooperative, well developed, no acute distress HEENT: Normocephalic, normal oropharynx, moist mucous membranes CHEST: Clear to auscultation bilaterally, No wheezes, rhonchi, or crackles CARDIOVASCULAR: Normal heart rate and rhythm, S1 and S2 normal without murmurs ABDOMEN: Soft, non-tender, non-distended, without organomegaly, Normal bowel sounds EXTREMITIES: No cyanosis or edema NEUROLOGICAL: Cranial nerves grossly intact, Moves all extremities without gross motor or sensory deficit Assessment & Plan Abdominal pain with bloating, possible colitis or diverticulitis Intermittent abdominal pain and bloating, primarily in the left lower quadrant, possibly due to colitis or diverticulitis. Symptoms include bloating, pain exacerbated by movement, and reflux. Recent onset of symptoms with initial diarrhea. Differential diagnosis includes colitis, diverticulitis, or other gastrointestinal inflammation. - Order stat CT of the abdomen and pelvis without contrast to evaluate for diverticulitis or colitis. - If CT is normal, perform a stool study. - Consider antibiotics if CT indicates diverticulitis or colitis. New onset anemia New onset anemia identified in recent blood work with low hemoglobin levels. She is postmenopausal, ruling out menstrual blood loss. Recent hemoglobin was 11.9 g/dL in December, now decreased. No visible blood in urine or stools. Possible gastrointestinal bleeding considered. - Evaluate CT results for potential gastrointestinal bleeding sources. - No immediate repeat blood work due to recent testing. Assessment & Plan Left lateral abdominal pain Orders: CT abdomen pelvis wo IV contrast; Future Nausea Orders: CT abdomen pelvis wo IV contrast; Future Diarrhea of presumed infectious origin Orders: CT abdomen pelvis wo IV contrast; Future Left lower quadrant abdominal tenderness with rebound tenderness Orders: CT abdomen pelvis wo IV contrast; Future Other iron deficiency anemia Orders: CT abdomen pelvis wo IV contrast; Future Current Outpatient Medications Medication Instructions albuterol 90 mcg/actuation inhaler 2 puffs, Every 4 hours PRN ALPRAZolam (XANAX) 0.5 mg, oral, 2 times daily PRN budesonide-formoterol (Symbicort) 160-4.5 mcg/actuation inhaler 2 puffs, inhalation, 2 times daily, Rinse mouth with water after use to reduce aftertaste and incidence of candidiasis. Do not swallow. clobetasol (Temovate) 0.05 % ointment Topical, 2 times daily doxycycline (ORACEA) 40 mg, Every morning doxycycline (PERIOSTAT) 20 mg, 2 times daily DULoxetine (CYMBALTA) 20 mg, oral, Daily esomeprazole (NEXIUM) 40 mg, 2 times daily hydrocortisone 2.5 % cream apply to THE UPPER LIP AND EYEBROWS twice a day for up to TWO WEEKS then DISCONTINUE hydroxychloroquine (PLAQUENIL) 200 mg, Daily montelukast (SINGULAIR) 10 mg, oral, Nightly mycophenolate (MYFORTIC) 180 mg, oral, 3 times daily roflumilast (Zoryve) 0.3 % cream 1 Application, topical (top), Daily sertraline (ZOLOFT) 25 mg, oral, Daily warfarin (Coumadin) 1 mg tablet TAKE 1 TO 2 TABLET BY MOUTH ONCE DAILY warfarin (COUMADIN) 4 mg warfarin (COUMADIN) 3 mg, oral, Every evening Winlevi 1 % cream 1 Application, Daily Current Outpatient Medications Medication Sig Dispense Refill albuterol 90 mcg/actuation inhaler Inhale 2 puffs every 4 hours if needed for shortness of breath. ALPRAZolam (Xanax) 0.5 mg tablet Take 1 tablet (0.5 mg) by mouth 2 times a day as needed for anxiety or sleep. 30 tablet 0 budesonide-formoterol (Symbicort) 160-4.5 mcg/actuation inhaler Inhale 2 puffs 2 times a day. Rinse mouth with water after use to reduce aftertaste and incidence of candidiasis. Do not swallow. 30.6 g 1 clobetasol (Temovate) 0.05 % ointment Apply topically 2 times a day. 60 g 0 doxycycline (Oracea) [address] capsule Take 1 capsule (40 mg) by mouth once daily in the morning. Do not crush or chew. Take with a full glass of water and do not lie down for at least 30 minutes after. doxycycline (Periostat) 20 mg tablet Take 1 tablet (20 mg) by mouth 2 times a day. DULoxetine (Cymbalta) [address] capsule TAKE 1 CAPSULE BY MOUTH EVERY DAY 90 capsule 1 esomeprazole (NexIUM) [address] capsule Take 1 capsule (40 mg) by mouth 2 times a day. Do not open capsule. hydrocortisone 2.5 % cream apply to THE UPPER LIP AND EYEBROWS twice a day for up to TWO WEEKS then DISCONTINUE hydroxychloroquine (Plaquenil) 200 mg tablet Take 1 tablet (200 mg) by mouth once daily. montelukast (Singulair) 10 mg tablet TAKE 1 TABLET BY MOUTH AT BEDTIME 90 tablet 0 mycophenolate (Myfortic) 180 mg EC tablet take 1 tablet by mouth three times a day 270 tablet 1 roflumilast (Zoryve) 0.3 % cream Apply 1 Application topically once daily. 60 g 1 sertraline (Zoloft) 25 mg tablet Take 1 tablet (25 mg) by mouth once daily. 90 tablet 0 warfarin (Coumadin) 1 mg tablet TAKE 1 TO 2 TABLET BY MOUTH ONCE DAILY 180 tablet 0 warfarin (Coumadin) 3 mg tablet Take 1 tablet (3 mg) by mouth once daily in the evening. 90 tablet 2 warfarin (Coumadin) 4 mg tablet Take 1 tablet (4 mg) by mouth. Take as directed per After Visit Summary. Winlevi 1 % cream Apply 1 Application topically once daily. No current facility-administered medications for this visit. Results LABS Sed rate: 45 (01/21/2025) CRP: normal (01/21/2025) Hemoglobin: low (01/21/2025) Hemoglobin: 11.9 (12/20/2024) Lab Review No results found for: NA, K, CL, CO2, BUN, CREATININE, GLUCOSE, CALCIUM No results found for: WBC, HGB, HCT, MCV, PLT Tayo Rodriguez MD This medical note was created with the assistance of artificial intelligence (AI) for documentation purposes. The content has been reviewed and confirmed by the healthcare provider for accuracy and completeness. Patient consented to the use of audio recording and use of AI during their visit. I performed this visit using realtime telehealth tools, including an audio/video OR telephone connection between the patient listed who was located in the [facility] and myself, Tayo Angela (Board certified in the [facility]). At the start of the visit, I introduced myself as Dr. Rodriguez and verified the patients name, , and current physical location. If they were currently outside of the state of [place], the visit was ended and the patient was referred to alternative means for evaluation and treatment. The patient was made aware of the limitations of the telehealth visit. They will not be physically examined and all issues may not be appropriate for a telehealth visit. If necessary, an in person referral will be made. DISCLAIMER: In preparing for this visit and writing this note, I reviewed previous electronic medical records (labs, imaging and medical charts) of the patient available in the physician portal. Significant findings which helped in decision making are recorded in this encounter charting. At the completion of the visit, the plan was discussed with the patient. All questions were answered the patient verbalized understanding documented in this encounter [facility] Work Phone: 01-23-2025 Instructions Tayo Rodriguez MD - 01/23/2025 12:00 PM EDT VISIT SUMMARY: During your visit, we discussed your recent abdominal pain, bloating, and reflux symptoms. You also have new onset anemia, which was identified in your recent blood work. We have outlined a plan to address these issues and will conduct further tests to determine the underlying causes. YOUR PLAN: -ABDOMINAL PAIN WITH BLOATING, POSSIBLE COLITIS OR DIVERTICULITIS: Your abdominal pain and bloating may be due to colitis or diverticulitis, which are conditions that cause inflammation in the intestines. We will perform a CT scan of your abdomen and pelvis without contrast to check for these conditions. If the CT scan is normal, we will conduct a stool study. Depending on the results, we may consider antibiotics if there is evidence of colitis or diverticulitis. -NEW ONSET ANEMIA: Anemia is a condition where you have a lower than normal number of red blood cells. Your recent blood work showed low hemoglobin levels, which is new for you. Since you are postmenopausal, menstrual blood loss is not a factor. We will evaluate the CT scan results to check for any potential sources of gastrointestinal bleeding. We will not repeat blood work immediately since you had recent testing. INSTRUCTIONS: Please schedule a CT scan of your abdomen and pelvis without contrast as soon as possible. If the CT scan is normal, we will need to perform a stool study. Follow up with us after the tests to discuss the results and next steps. documented in this encounter [facility] Work Phone: 01-23-2025 Miscellaneous Notes Associated Problem(s): Iron deficiency anemia, unspecified Orders: CT abdomen pelvis wo IV contrast; Future documented in this encounter [facility] Work Phone: 01-22-2025 Note HNO ID: [id number] Author: JOAN SALTER APRN.MALE INFERTILITY SPECIALIST Service: ? Author Type: Nurse Practitioner Type: Progress Notes Filed: 01/22/2025 11:31 Note Text: URGENT CARE LING Subjective Tamy Vazquez is a 44 year old female. Patient presents with: Abdominal Pain: Left side, lower side and into front area pain had some diarrhea and feels bloated x 4 days Abdominal Pain The patient is a 44-year-old female presenting with left-sided back pain and bloating x4 days. Left-Sided Flank Pain and Bloating: - Onset 4 days ago. - Uncertain if pain is muscular or internal. - Pain localized to the left flank area. - Denies dysuria, urinary frequency, emesis, fevers, or chills. - Postmenopausal; no recent menstrual periods. 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 - Started a new supplement, Sea Garcia, for 2 days before symptoms began; has not taken it for the past 2 days. Review of Systems Gastrointestinal: Positive for abdominal pain. Constitutional: (-) fever, (-) chills Gastrointestinal: (+) abdominal bloating Genitourinary: (+) flank pain, (-) dysuria, (-) urinary frequency Objective BP 99/68 Pulse 72 Temp 36.1 ?C (97 ?F) Resp 18 Wt 54 kg (119 lb 0.8 oz) LMP 03/23/2020 (Exact Date) SpO2 100% BMI 23.25 kg/m? 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 - Endometriosis, site unspecified Endometriosis - Esophageal reflux - hx of low vitamin D recheck normal - Hyperparathyroidism (HCC) 2014 parathyroidectomy - Menorrhagia fibroids UFE - Nephrolithiasis - Osteoporosis 05/2022 with LOSS T-score -3.0 08/2022 nl urine calcium 260 - Peripheral vascular disease - Personal history of unspecified urinary disorder - PMH - PAST MEDICAL HISTORY OF 04/18/2005 blood clot internal jugular vein, 4 weeks diagnosed - Protein S deficiency (HCC) 05/19/2002 cavernous sinus thrombosis 4 week - Raynaud's syndrome CTD plaquenil - Rib fracture 06/19/2014 - Seasonal allergies - Uterine fibroid s/p UFE PAST SURGICAL HISTORY Procedure Laterality Date - EMBOLIZATION UTERINE FIBROID 03/18/2013 - LAPAROSCOPIC APPENDECTOMY 03/30/2021 - LAPS ABD PRTMANDOMENTUM DX W/WO SPEC BR/WA SPX 04/18/2004 Laparoscopy for endometriosis at [place] Dr [facility]iman at [facility], no control afterward, ++relief and + relief with surgery, laser - PARATHYROIDECTOMY/EXPLORATION PARATHYROIDS 08/05/2014 - PT ED ENDOCRINOLOGY 2016 - RECLAST INJECTION for 1st one via endo 08/2022 ALLERGIES Amerigel [Zinc Acetate], Cefdinir, and Flagyl [Metronidazole] MEDICATIONS - sertraline (ZOLOFT) 25 mg tablet Take 25 mg by mouth once daily. - mycophenolate sodium DR (MYFORTIC) 180 mg EC tablet Take 4 tablets by mouth two times a day. One AM 3 PM - budesonide-formoterol (SYMBICORT) 160-4.5 mcg/actuation inhaler inhale 2 puffs by mouth twice a day - RINSE MOUTH WITH WATER AFT... (REFER TO PRESCRIPTION NOTES). - mycophenolate sodium DR (MYFORTIC) 360 mg TbEC Take 1 tablet by mouth once daily. - DHEA vaginal suppository 13 mg (CPD) Unwrap and insert 1 suppository vaginally at bedtime. Refrigerate remainder of package. - Cholecalciferol, Vitamin D3, (VITAMIN D) 25 mcg (1,000 unit) cap Take 2 capsules by mouth once daily. - ketoconazole (NIZORAL) 2 % shampoo Ketoconazole 2 % External Shampoo WASH THE SCALP DAILY - LATHER - LEAVE ON FOR 3-5 MINUTES, THEN RINSE Quantity: 120 Refills: 0 Ordered: 29-Jul-2020 DO Start : 14-Jan-2020 Complete - Spirometers and Accessories gary 1 Device four times daily. - warfarin (COUMADIN) 2 mg tablet Take 1.5 tablets by mouth daily as directed. - montelukast (SINGULAIR) 10 mg tablet Take 10 mg by mouth daily at bedtime. - fexofenadine HCl (ERNESTINE ORAL) Take by mouth as needed. - Doxycycline Monohydrate 40 mg capsule Take 40 mg by mouth once daily. - hydrOXYchloroQUINE (PLAQUENIL) 200 mg tablet Take 200 mg by mouth once daily. FAMILY HISTORY Problem Relation Age of Onset - other (hysterectomy) Mother - Osteoporosis Mother - Asthma Mother - Hypertension Father - Diabetes Father - other (seasonal allergies) Brother - No Known Problems Maternal Grandmother - No Known Problems Maternal Grandfather - No Known Problems Paternal Grandmother - Heart Attack Paternal Grandfather - ADD/ADHD Son SOCIAL HISTORY[1] Physical Exam General: No acute distress. Resp: No crackles. Back: No costovertebral angle tenderness. Abd: Left-sided tenderness to palpation, no tenderness to palpation in other areas. { 1. Acute left flank pain (R10.A2) 2. Diarrhea, unspecified type (R19.7) - No hematuria on urinalysis; kidney stone less likely. - Differential includes viral infection, foodborne illness, or musculoskeletal pain. - Repeat ur (more content not included)... [facility] 01-16-2025 Note HNO ID: [id number] Author: ESMER FRYE MD Service: ? Author Type: Physician Type: Progress Notes Filed: 01/17/2025 10:53 Note Text: Rheumatology CONSULTATION Date of Service: 01/16/2025 Patient: aTmy Vazquez Medical Record: [id number] Primary Care Physician: Tayo Rodriguez MD Last Rheumatology visit: None at [facility] Referring Provider: No referring provider defined for this encounter. Chief Complaint: No chief complaint on file. Tamy Juarez Vazquez is here today specifically for consultation of my opinion in regards to the chief complaint listed above. Correspondence will be shared today via the [employer] electronic health record or through regular mail, where applicable. HISTORY OF PRESENT ILLNESS The patient is a 44-year-old female with Vitamin D deficiency, GERD, endometriosis, protein S deficiency, asthma, primary hyperparathyroidism, allergies, nephrolithiasis, fibroids who presents to rheumatology clinic to establish care with new provider for SLE/overlap syndrome with manifestations of high titer positive GABRIEL, dsDNA, Hill, high titer RN ACUTE CARE, high titer chromatin, intermittent leukopenia thrombocytopenia, solitary episode of low C4, multiple equivocal cardiolipin antibodies, history of DVT, oral ulcers, Raynaud's with digital pitting, sclerodactyly, ILD with UIP pattern, inflammatory arthralgias, patulous esophagus, sicca, bloating. She is accompanied by her who assists with the history. Tamy was initially diagnosed with lupus at age 19 after presenting with unexplained fevers and elevated GABRIEL titers. She reports no initial symptoms at the time of diagnosis. Over the years, she has developed multiple comorbidities Most notably Raynaud's with digital ulcerations, sclerodactyly, and UIP ILD. She has been on hydroxychloroquine 200 mg daily since approximately 2004, with no reported side effects and is up to date with her ophthalmologic exams. She tried CellCept but felt that it caused abrupt onset tinnitus which significantly worsened her health so she discontinued it. She then switched to azathioprine but was recommended to switch to Myfortic by pulmonology due to her ILD. She is currently on Myfortic 180 mg, taking one tablet in the morning and three at night, for the past 6-8 months. She notes an increase in myalgias since increasing the dose from three to four tablets daily. She was previously on azathioprine but was switched back to Myfortic by her lead ramp service man, Dr. Loya, who titrated the dose gradually. She reports ongoing dyspnea, particularly with increased physical activity, but notes improvement in orthopnea, now able to sleep flat without additional pillows. She is followed by pulmonology with regular pulmonary function tests every six months. She uses an inhaler as needed, approximately every other day, and reports improvement in symptoms with its use. She expresses concern about the risk of oral thrush from inhaler use. She experiences Raynaud's phenomenon, with color changes in her fingers and toes since her 20s, but has not been on systemic treatment due to dizziness with topical medications. She has a history of digital ulcers on the second and third digits of the right hand, occurring years ago after her children were born. She is currently not on medications for the Raynaud's. She thinks she was on something in the past which caused hypotension but she cannot remember names. 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 She denies rashes but has been diagnosed with psoriasis on her right foot by dermatology, treated with a topical cream as needed. She experiences esophageal dysmotility and is on Nexium daily for GERD, with symptoms well-controlled unless she overeats. She reports regular bowel movements and denies constipation, diarrhea, or hematochezia. She has a history of nephrolithiasis and primary hyperparathyroidism, status post parathyroidectomy in 2015. She is on Reclast and vitamin D for osteoporosis per endo, with a recent DEXA scan showing a T-score of -3.0 at the left femoral neck. She denies fractures and is followed by endocrinology. She has a history of a right internal jugular vein thrombosis , for which she has been on Coumadin since. She denies new thrombotic events. She reports intermittent arthralgias and myalgias, particularly in the hands, feet, and knees, with stiffness noted in the mornings and during cold or rainy weather. She denies erythema, calor, or swelling of the joints. She reports post-exertional malaise, with increased myalgias after physical activity. She has a history of endometriosis and uterine fibroids, for which she underwent surgical intervention, resulting in successful conception of twins, now 19 years old. She is postmenopausal and has had an appendectomy and cholecystectomy. FMHx - Osteoporosis (grandmother) - (more content not included)... [facility] 12-20-2024 Evaluation + Plan note Associated Problem(s): Vitamin D deficiency Orders: Vitamin D 25-Hydroxy,Total (for eval of Vitamin D levels); Future TSH with reflex to Free T4 if abnormal; Future [facility] Work Phone: 12-20-2024 Evaluation + Plan note Associated Problem(s): Vitamin B 12 deficiency Orders: Vitamin B12; Future TSH with reflex to Free T4 if abnormal; Future [facility] Work Phone: 12-20-2024 Evaluation + Plan note Associated Problem(s): MCTD (mixed connective tissue disease) (Multi) Orders: DULoxetine (Cymbalta) [address] capsule; Take 1 capsule (20 mg) by mouth once daily. Do not crush or chew. [facility] Work Phone: 12-20-2024 Evaluation + Plan note Associated Problem(s): Hypercoagulable state, secondary (Multi) Stable on current medications Continue meds and exercise. Will continue home monitoring of coumadin [facility] Work Phone: 12-20-2024 Evaluation + Plan note Associated Problem(s): Psoriasis Orders: roflumilast (Zoryve) 0.3 % cream; Apply 1 Application topically once daily. [facility] Work Phone: 12-20-2024 Evaluation + Plan note Associated Problem(s): ILD (interstitial lung disease) (Multi) Orders: budesonide-formoterol (Symbicort) 160-4.5 mcg/actuation inhaler; Inhale 2 puffs 2 times a day. Rinse mouth with water after use to reduce aftertaste and incidence of candidiasis. Do not swallow. [facility] Work Phone: 12-20-2024 History of Present illness Narrative Subjective Patient ID: Tamy Vazquez is a 44 y.o. female who presents for Annual Exam. History of Present Illness Tamy Vazquez is a 44 year old female with psoriatic arthritis and mixed connective tissue disease who presents for an annual wellness visit and management of body aches. She experiences persistent body aches, which she attributes to stress. She is currently taking CellCept. She has previously been on Zoloft and is considering switching to Cymbalta for pain management. She has a history of psoriatic arthritis and mixed connective tissue disease, with concerns of systemic lupus erythematosus (SLE) and systemic sclerosis. Her pulmonary fibrosis is stable, and she is currently on Myfortic for interstitial lung disease (ILD). She has experienced leukopenia in the past, which resolved after discontinuing Imuran. She experiences hair thinning, which she attributes to menopause and her medications. She has not used minoxidil but is considering alternatives like biotin and red light therapy. She uses various shampoos to manage hair thinning. She has a history of ringing in her ears and acknowledges hearing loss. She experiences nasal pressure but finds relief with Ernestine. No regular headaches, but body aches are a significant concern. She has a history of yeast infections and cold hands. She experiences shortness of breath during physical activity. She has psoriasis on the bottom of her feet and is seeking treatment for it. She is currently taking Zoloft 25 mg once a day. She is currently taking CellCept. Review of Systems ROS otherwise negative aside from what was mentioned above in HPI. Objective BP 95/67 Pulse 82 Temp 36.6 C (97.9 F) (Oral) Ht 1.6 m (5' 3) Wt 52.3 kg (115 lb 3.2 oz) LMP (LMP Unknown) SpO2 95% BMI 20.41 kg/m Physical Exam GENERAL: Alert, cooperative, well developed, no acute distress. HEENT: Normocephalic, normal oropharynx, moist mucous membranes. CHEST: Wheezing at the base of the lungs. CARDIOVASCULAR: Normal heart rate and rhythm, S1 and S2 normal without murmurs. ABDOMEN: Soft, non-tender, non-distended, without organomegaly, normal bowel sounds. EXTREMITIES: No cyanosis or edema. NEUROLOGICAL: Cranial nerves grossly intact, moves all extremities without gross motor or sensory deficit. Assessment & Plan Adult Wellness Visit Annual wellness visit conducted. - Order routine labs - Administer flu and pneumonia vaccines at a later date Mixed connective tissue disease with chronic pain and Raynaud's phenomenon Chronic pain and Raynaud's phenomenon associated with mixed connective tissue disease. Consideration of switching from Zoloft to Cymbalta for pain management. Potential infusions like Benlysta and nintedanib for body aches if current treatment is insufficient. Infrastructure Director consultation needed before starting new infusions. - Prescribe duloxetine 20 mg once daily - Consult with squad boss regarding body aches and potential infusions - Monitor for side effects and effectiveness of duloxetine Pulmonary fibrosis, stable Pulmonary fibrosis is well-managed with CellCept. Potential addition of nintedanib if condition worsens. - Continue current management with CellCept - Consult lead ramp service man if considering new treatments Psoriasis of the feet Psoriasis present on the feet. New topical treatment option Zoryve discussed. - Prescribe Zoryve cream for psoriasis on feet - Provide coupon for Zoryve to reduce cost Anxiety disorder Anxiety disorder managed with Zoloft. Potential switch to Cymbalta for combined management of anxiety and chronic pain. Cymbalta may improve pain control and energy levels. - Prescribe duloxetine 20 mg once daily - Wean off Zoloft while starting duloxetine Hearing loss with tinnitus Persistent tinnitus with known hearing loss. - Refer to ENT for evaluation of tinnitus and hearing loss Hair thinning secondary to menopause and medications Hair thinning attributed to menopause and medication use. Non-minoxidil options discussed. - Recommend biotin supplements and red light therapy - Suggest Purador shampoo for hair thinning Asthma, stable Asthma is well-controlled. Assessment & Plan Encounter for annual general medical examination without abnormal findings in adult Orders: Lipid Panel; Future CBC and Auto Differential; Future TSH with reflex to Free T4 if abnormal; Future Comprehensive Metabolic Panel; Future Hemoglobin A1C; Future Vitamin D deficiency Orders: Vitamin D 25-Hydroxy,Total (for eval of Vitamin D levels); Future TSH with reflex to Free T4 if abnormal; Future Vitamin B 12 deficiency Orders: Vitamin B12; Future TSH with reflex to Free T4 if abnormal; Future Anxiety Orders: sertraline (Zoloft) 25 mg tablet; Take 1 tablet (25 mg) by mouth once daily. DULoxetine (Cymbalta) [address] capsule; Take 1 capsule (20 mg) by mouth once daily. Do not crush or chew. ALPRAZolam (Xanax) 0.5 mg tablet; Take 1 tablet (0.5 mg) by mouth 2 times a day as needed for anxiety or sleep. Screening for diabetes mellitus Orders: Hemoglobin A1C; Future Hyperglycemia Orders: Hemoglobin A1C; Future MCTD (mixed connective tissue disease) (Multi) Orders: DULoxetine (Cymbalta) [address] capsule; Take 1 capsule (20 mg) by mouth once daily. Do not crush or chew. Hypercoagulable state, secondary (Multi) Stable on current medications Continue meds and exercise. Will continue home monitoring of coumadin Psoriasis Orders: roflumilast (Zoryve) 0.3 % cream; Apply 1 Application topically once daily. ILD (interstitial lung disease) (Multi) Orders: budesonide-formoterol (Symbicort) 160-4.5 mcg/actuation inhaler; Inhale 2 puffs 2 times a day. Rinse mouth with water after use to reduce aftertaste and incidence of candidiasis. Do not swallow. Wheezing Orders: budesonide-formoterol (Symbicort) 160-4.5 mcg/actuation inhaler; Inhale 2 puffs 2 times a day. Rinse mouth with water after use to reduce aftertaste and incidence of candidiasis. Do not swallow. Current Outpatient Medications Medication Instructions albuterol 90 mcg/actuation inhaler 2 puffs, Every 4 hours PRN ALPRAZolam (XANAX) 0.5 mg, oral, 2 times daily PRN budesonide-formoterol (Symbicort) 160-4.5 mcg/actuation inhaler 2 puffs, inhalation, 2 times daily, Rinse mouth with water after use to reduce aftertaste and incidence of candidiasis. Do not swallow. clobetasol (Temovate) 0.05 % ointment Topical, 2 times daily doxycycline (ORACEA) 40 mg, Every morning doxycycline (PERIOSTAT) 20 mg, 2 times daily DULoxetine (CYMBALTA) 20 mg, oral, Daily, Do not crush or chew. esomeprazole (NEXIUM) 40 mg, 2 times daily hydrocortisone 2.5 % cream apply to THE UPPER LIP AND EYEBROWS twice a day for up to TWO WEEKS then DISCONTINUE hydroxychloroquine (PLAQUENIL) 200 mg, Daily montelukast (SINGULAIR) 10 mg, oral, Nightly mycophenolate (MYFORTIC) 180 mg, oral, 3 times daily roflumilast (Zoryve) 0.3 % cream 1 Application, topical (top), Daily sertraline (ZOLOFT) 25 mg, oral, Daily warfarin (Coumadin) 1 mg tablet TAKE 1 TO 2 TABLET BY MOUTH ONCE DAILY warfarin (COUMADIN) 4 mg warfarin (COUMADIN) 3 mg, oral, Every evening Winlevi 1 % cream 1 Application, Daily Current Outpatient Medications Medication Sig Dispense Refill albuterol 90 mcg/actuation inhaler Inhale 2 puffs every 4 hours if needed for shortness of breath. clobetasol (Temovate) 0.05 % ointment Apply topically 2 times a day. 60 g 0 doxycycline (Oracea) [address] capsule Take 1 capsule (40 mg) by mouth once daily in the morning. Do not crush or chew. Take with a full glass of water and do not lie down for at least 30 minutes after. doxycycline (Periostat) 20 mg tablet Take 1 tablet (20 mg) by mouth 2 times a day. esomeprazole (NexIUM) [address] capsule Take 1 capsule (40 mg) by mouth 2 times a day. Do not open capsule. hydrocortisone 2.5 % cream apply to THE UPPER LIP AND EYEBROWS twice a day for up to TWO WEEKS then DISCONTINUE hydroxychloroquine (Plaquenil) 200 mg tablet Take 1 tablet (200 mg) by mouth once daily. montelukast (Singulair) 10 mg tablet TAKE 1 TABLET BY MOUTH AT BEDTIME 90 tablet 0 mycophenolate (Myfortic) 180 mg EC tablet take 1 tablet by mouth three times a day 270 tablet 1 warfarin (Coumadin) 1 mg tablet TAKE 1 TO 2 TABLET BY MOUTH ONCE DAILY 180 tablet 0 warfarin (Coumadin) 3 mg tablet Take 1 tablet (3 mg) by mouth once daily in the evening. 90 tablet 2 warfarin (Coumadin) 4 mg tablet Take 1 tablet (4 mg) by mouth. Take as directed per After Visit Summary. Winlevi 1 % cream Apply 1 Application topically once daily. ALPRAZolam (Xanax) 0.5 mg tablet Take 1 tablet (0.5 mg) by mouth 2 times a day as needed for anxiety or sleep. 30 tablet 0 budesonide-formoterol (Symbicort) 160-4.5 mcg/actuation inhaler Inhale 2 puffs 2 times a day. Rinse mouth with water after use to reduce aftertaste and incidence of candidiasis. Do not swallow. 30.6 g 1 DULoxetine (Cymbalta) [address] capsule Take 1 capsule (20 mg) by mouth once daily. Do not crush or chew. 30 capsule 1 roflumilast (Zoryve) 0.3 % cream Apply 1 Application topically once daily. 60 g 1 sertraline (Zoloft) 25 mg tablet Take 1 tablet (25 mg) by mouth once daily. 90 tablet 0 No current facility-administered medications for this visit. Results LABS Leukopenia: Resolved DIAGNOSTIC Pulmonary fibrosis: Stable Lab Review Anticoagulation - Warfarin Visit on 12/14/2024 Component Date Value INR External 12/14/2024 2.20 Anticoagulation - Warfarin Visit on 12/10/2024 Component Date Value INR External 12/10/2024 1.60 Anticoagulation - Warfarin Visit on 10/08/2024 Component Date Value INR External 10/07/2024 1.90 Anticoagulation - Warfarin Visit on 08/06/2024 Component Date Value INR External 08/04/2024 2.90 Anticoagulation - Warfarin Visit on 06/21/2024 Component Date Value INR External 06/14/2024 1.90 Tayo Rodriguez MD This medical note was created with the assistance of artificial intelligence (AI) for documentation purposes. The content has been reviewed and confirmed by the healthcare provider for accuracy and completeness. Patient consented to the use of audio recording and use of AI during their visit. OARRS: Tayo Rodriguez MD on 12/20/2024 9:36 AM I have personally reviewed the OARRS report for Tamy Vazquez. I have considered the risks of abuse, dependence, addiction and diversion and I believe that it is clinically appropriate for Tamy Vazquez to be prescribed this medication Is the patient prescribed a combination of a benzodiazepine and opioid? No Last Urine Drug Screen / ordered today: No No results found for this or any previous visit (from the past 8760 hours). N/A Clinical rationale for not completing a Urine Drug Screen: not taking regularly Controlled Substance Agreement: Date of the Last Agreement: 06/04/24 Reviewed Controlled Substance Agreement including but not limited to the benefits, risks, and alternatives to treatment with a Controlled Substance medication(s). Benzodiazepines: What is the patient's goal of therapy? Anxiety and panic attacks Is this being achieved with current treatment? yes JANICE-7: No data recorded Activities of Daily Living: Is your overall impression that this patient is benefiting (symptom reduction outweighs side effects) from benzodiazepine therapy? Yes 1. Physical Functioning: Better 2. Family Relationship: Better 3. Social Relationship: Better 4. Mood: Better 5. Sleep Patterns: Better 6. Overall Function: Better documented in this encounter [facility] Work Phone: 12-20-2024 Instructions Tayo Rodriguez MD - 12/20/2024 8:20 AM EDT VISIT SUMMARY: During your visit, we reviewed your overall health and addressed your ongoing concerns, including body aches, hair thinning, and psoriasis. We also discussed potential changes to your medication to better manage your chronic pain and anxiety. Routine labs were ordered, and we talked about future vaccinations. 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 We are considering switching your medication from Zoloft to Cymbalta to help manage your pain. We also discussed potential infusions like Benlysta and nintedanib if your current treatment isn't enough. You will need to consult with a lead ramp service man before starting any new infusions. We have prescribed duloxetine 20 mg once daily and will monitor its effectiveness and any side effects. -PULMONARY FIBROSIS, STABLE: Pulmonary fibrosis is a lung disease that occurs when lung tissue becomes damaged and scarred. Your condition is currently stable with CellCept. If your condition worsens, we may consider adding nintedanib. Continue with your current management and consult a lead ramp service man if new treatments are needed. -PSORIASIS OF THE FEET: Psoriasis is a skin condition that causes red, itchy, and scaly patches. You have psoriasis on the bottom of your feet. We have prescribed Zoryve cream to treat it and provided a coupon to help reduce the cost. -ANXIETY DISORDER: Anxiety disorder is a mental health condition characterized by excessive worry or fear. Your anxiety is currently managed with Zoloft, but we are considering switching to Cymbalta, which may also help with your chronic pain. We have prescribed duloxetine 20 mg once daily and will help you wean off Zoloft while starting duloxetine. -HEARING LOSS WITH TINNITUS: Tinnitus is the perception of noise or ringing in the ears, often associated with hearing loss. We have referred you to an ENT specialist for further evaluation of your tinnitus and hearing loss. -HAIR THINNING SECONDARY TO MENOPAUSE AND MEDICATIONS: Hair thinning can be caused by menopause and certain medications. We discussed non-minoxidil options, including biotin supplements and red light therapy. We also suggested using Purador shampoo to help manage hair thinning. -GENERAL HEALTH MAINTENANCE: We conducted your annual wellness visit, ordered routine labs, and discussed administering flu and pneumonia vaccines at a later date. INSTRUCTIONS: Please follow up with a lead ramp service man before starting any new infusions for your mixed connective tissue disease. Continue taking CellCept for your pulmonary fibrosis and consult a lead ramp service man if you consider new treatments. Start taking duloxetine 20 mg once daily and wean off Zoloft as discussed. Use Zoryve cream for psoriasis on your feet and use the provided coupon. Schedule an appointment, with an ENT specialist for your tinnitus and hearing loss. Consider biotin supplements, red light therapy, and Purador shampoo for hair thinning. Routine labs have been ordered, and we will discuss flu and pneumonia vaccines at your next visit. The following attachments cannot be sent through Care Everywhere.Generalized anxiety disorder ([place])Yearly Physical for Adults ([place] African)documented in this encounter [facility] Work Phone: 12-20-2024 Miscellaneous Notes Associated Problem(s): Vitamin D deficiency Orders: Vitamin D 25-Hydroxy,Total (for eval of Vitamin D levels); Future TSH with reflex to Free T4 if abnormal; Future Associated Problem(s): Vitamin B 12 deficiency Orders: Vitamin B12; Future TSH with reflex to Free T4 if abnormal; Future Associated Problem(s): MCTD (mixed connective tissue disease) (Multi) Orders: DULoxetine (Cymbalta) [address] capsule; Take 1 capsule (20 mg) by mouth once daily. Do not crush or chew. Associated Problem(s): Hypercoagulable state, secondary (Multi) Stable on current medications Continue meds and exercise. Will continue home monitoring of coumadin Associated Problem(s): Psoriasis Orders: roflumilast (Zoryve) 0.3 % cream; Apply 1 Application topically once daily. Associated Problem(s): ILD (interstitial lung disease) (Multi) Orders: budesonide-formoterol (Symbicort) 160-4.5 mcg/actuation inhaler; Inhale 2 puffs 2 times a day. Rinse mouth with water after use to reduce aftertaste and incidence of candidiasis. Do not swallow. documented in this encounter [facility] Work Phone: 10-31-2024 Note HNO ID: [id number] Author: CARMELLA CABRERA APRN.MALE INFERTILITY SPECIALIST Service: ? Author Type: Nurse Practitioner Type: Progress Notes Filed: 10/31/2024 16:59 Note Text: Data Compiler offered: Patient declinesSudhir Dhaliwal is a 44 year old who presents for an annual gynecologic exam without complaints. Menses: No menses. Diagnosed with premature ovarian insufficiency by Dr. Evans in 2019 - Blood work 2019 - fragile X negative - DEXA 2017 osteoporosis - following with endocrinology - Taking Reclast for osteoporosis management. Contraception: postmenopausal HPV vaccine: N/A Last pap smear: 08/12/2022 negative HPV:negative History of abnormal pap: Yes - ASCUS in 2015 and negative HPV Bothersome pelvic pain: No Last mammogram: 2024 additional imaging completed - return to normal annual screenings Sexually active: Yes History of STDS: None Patient concerns for STD exposure: No. 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 Connective tissue disorder (HCC) with ILD raynauds Endometriosis, site unspecified Endometriosis Esophageal reflux hx of low vitamin D recheck normal Hyperparathyroidism (HCC) 2015 parathyroidectomy Menorrhagia fibroids UFE Nephrolithiasis Osteoporosis 05/2022 with LOSS T-score -3.0 08/2022 nl urine calcium 260 Peripheral vascular disease Personal history of unspecified urinary disorder PMH - PAST MEDICAL HISTORY OF 04/18/2005 blood clot internal jugular vein, 4 weeks diagnosed Protein S deficiency (HCC) 05/19/2002 cavernous sinus thrombosis 4 week Raynaud's syndrome CTD plaquenil Rib fracture 06/19/2014 Seasonal allergies Uterine fibroid s/p UFE PAST SURGICAL HISTORY Procedure Laterality Date EMBOLIZATION UTERINE FIBROID 03/18/2013 LAPAROSCOPIC APPENDECTOMY 03/30/2021 LAPS ABD PRTMANDOMENTUM DX W/WO SPEC BR/WA SPX 04/18/2004 Laparoscopy for endometriosis at [place] Dr Soliman at [facility], no control afterward, ++relief and + relief with surgery, laser PARATHYROIDECTOMY/EXPLORATION PARATHYROIDS 08/05/2014 PT ED ENDOCRINOLOGY 2016 RECLAST INJECTION for 1st one via endo 08/2022 FAMILY HISTORY Problem Relation Age of Onset other (hysterectomy) Mother Osteoporosis Mother Asthma Mother Hypertension Father Diabetes Father other (seasonal allergies) Brother No Known Problems Maternal Grandmother No Known Problems Maternal Grandfather No Known Problems Paternal Grandmother Heart Attack Paternal Grandfather ADD/ADHD Son SOCIAL HISTORY Social History Tobacco Use Smoking status: Never Smokeless tobacco: Never Vaping Use Vaping status: Never Used Substance Use Topics Alcohol use: Yes Alcohol/week: 2.0 standard drinks of alcohol Types: 2 Glasses of Wine (5oz) per week Comment: occasional Drug use: No REVIEW OF SYSTEMS Abdomen: No abdominal pain, nausea, vomiting, diarrhea, or constipation. No bloating, early satiety, indigestion, or increased flatulence. Bladder: No dysuria, gross hematuria, urinary frequency, urinary urgency, or incontinence. Breast: No breast lumps, nipple d/c, overlying skin changes, redness or skin retraction. Allergies and current medication updated:Yes SENSITIVE EXAM: The sensitive examination was discussed with the Patient or Patient's Authorized Evp General Counsel. As applicable, any other physician, advance practice provider, medical student, or other health professional student that will be observing or involved in the sensitive examination for educational or training purposes was discussed with the Patient or Authorized Evp General Counsel. The Patient or Authorized Evp General Counsel has agreed to proceed with the sensitive examination. (Sensitive examination includes inspection and/or palpation of the breasts, pelvis, prostate and anorectal regions). EXAM: BP 90/64 Ht 5' 3.189 (1.61m) Wt 116 lb (52.6kg) LMP 03/23/2020 BMI 20.43 kg/(m2). GENERAL: pleasant, female in no apparent distress HEENT: Normocephalic, atraumatic, mucus membranes moist, and no lesions NECK: Supple, full range of motion, no adenopathy, and thyroid normal DERMATOLOGY: Normal, without lesions, non-icteric, and non-hirsute BREAST: soft, non-tender, symmetric, no dominant mass, normal nipple-areolar complex, no lymphadenopathy, and no nipple discharge CHEST: Normal inspiratory effort ABDOMEN: soft, non-tender, and no masses PELVIC: external genitalia (more content not included)... [facility] 10-31-2024 History of Present illness Narrative Data Compiler offered: Patient declinesSudhir Dhaliwal is a 44 year old who presents for an annual gynecologic exam without complaints. Menses: No menses. Diagnosed with premature ovarian insufficiency by Dr. Evans in 2019 - Blood work 2019 - fragile X negative - DEXA 2017 osteoporosis - following with endocrinology - Taking Reclast for osteoporosis management. Contraception: postmenopausal HPV vaccine: N/A Last pap smear: 08/12/2022 negative HPV:negative History of abnormal pap: Yes - ASCUS in 2015 and negative HPV Bothersome pelvic pain: No Last mammogram: 2024 additional imaging completed - return to normal annual screenings Sexually active: Yes History of STDS: None Patient concerns for STD exposure: No. 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 Connective tissue disorder (HCC) with ILD raynauds Endometriosis, site unspecified Endometriosis Esophageal reflux hx of low vitamin D recheck normal Hyperparathyroidism (HCC) 2015 parathyroidectomy Menorrhagia fibroids UFE Nephrolithiasis Osteoporosis 05/2022 with LOSS T-score -3.0 08/2022 nl urine calcium 260 Peripheral vascular disease Personal history of unspecified urinary disorder PMH - PAST MEDICAL HISTORY OF 04/18/2005 blood clot internal jugular vein, 4 weeks diagnosed Protein S deficiency (HCC) 05/19/2002 cavernous sinus thrombosis 4 week Raynaud's syndrome CTD plaquenil Rib fracture 06/19/2014 Seasonal allergies Uterine fibroid s/p UFE PAST SURGICAL HISTORY Procedure Laterality Date EMBOLIZATION UTERINE FIBROID 03/18/2013 LAPAROSCOPIC APPENDECTOMY 03/30/2021 LAPS ABD PRTM&OMENTUM DX W/WO SPEC BR/WA SPX 04/18/2004 Laparoscopy for endometriosis at [place] Dr Soliman at [facility], no control afterward, ++relief and + relief with surgery, laser PARATHYROIDECTOMY/EXPLORATION PARATHYROIDS 08/05/2014 PT ED ENDOCRINOLOGY 2016 RECLAST INJECTION for 1st one via endo 08/2022 FAMILY HISTORY Problem Relation Age of Onset other (hysterectomy) Mother Osteoporosis Mother Asthma Mother Hypertension Father Diabetes Father other (seasonal allergies) Brother No Known Problems Maternal Grandmother No Known Problems Maternal Grandfather No Known Problems Paternal Grandmother Heart Attack Paternal Grandfather ADD/ADHD Son SOCIAL HISTORY Social History Tobacco Use Smoking status: Never Smokeless tobacco: Never Vaping Use Vaping status: Never Used Substance Use Topics Alcohol use: Yes Alcohol/week: 2.0 standard drinks of alcohol Types: 2 Glasses of Wine (5oz) per week Comment: occasional Drug use: No REVIEW OF SYSTEMS Abdomen: No abdominal pain, nausea, vomiting, diarrhea, or constipation. No bloating, early satiety, indigestion, or increased flatulence. Bladder: No dysuria, gross hematuria, urinary frequency, urinary urgency, or incontinence. Breast: No breast lumps, nipple d/c, overlying skin changes, redness or skin retraction. Allergies and current medication updated:Yes SENSITIVE EXAM: The sensitive examination was discussed with the Patient or Patient's Authorized Evp General Counsel. As applicable, any other physician, advance practice provider, medical student, or other health professional student that will be observing or involved in the sensitive examination for educational or training purposes was discussed with the Patient or Authorized Evp General Counsel. The Patient or Authorized Evp General Counsel has agreed to proceed with the sensitive examination. (Sensitive examination includes inspection and/or palpation of the breasts, pelvis, prostate and anorectal regions). EXAM: BP 90/64 Ht 5' 3.189 (1.61m) Wt 116 lb (52.6kg) LMP 03/23/2020 BMI 20.43 kg/(m^2). GENERAL: pleasant, female in no apparent distress HEENT: Normocephalic, atraumatic, mucus membranes moist, and no lesions NECK: Supple, full range of motion, no adenopathy, and thyroid normal DERMATOLOGY: Normal, without lesions, non-icteric, and non-hirsute BREAST: soft, non-tender, symmetric, no dominant mass, normal nipple-areolar complex, no lymphadenopathy, and no nipple discharge CHEST: Normal inspiratory effort ABDOMEN: soft, non-tender, and no masses PELVIC: external genitalia normal, normal Bartholin's glands, urethra, [place]'s glands, no vulvar lesions, no cervical lesions, good vaginal support, physiologic discharge present, normal appearing perineal body and perianal region BIMANUAL: uterus normal size, shape and consistency, no adnexal masses, and non-tender RECTOVAGINAL: deferred. NEURO: alert and oriented x3,exam grossly non-focal EXTREMITIES: normal ASSESSMENT/PLAN: 1) Health maintenance: Pap/HPV up to date. Mammogram ordered. Nutrition, exercise and routine health maintenance exams reviewed. Calcium/Vitamin D supplementation information provided. 2) Contraception: postmenopausal. 3) STD screening: Declined STD check. 4) Follow up one year or sooner as needed Carmella Cabrera APRN.MALE INFERTILITY SPECIALIST documented in this encounter [facility] 10-02-2024 Telephone encounter Note 10/01/24 labs reviewed. Calcium 8.7; low normal Creatinine 0.68 Vitamin D 35 PTH 34 Plan: To call pt. - Increase Tums Ultra to 3 daily, to take with food; can take 2 Tums and 1 Calcium Citrate with Vitamin D daily. - Check how much total Vit D she is taking; only in MVI or extra as well? - Reclast ordered. [facility] 10-02-2024 Miscellaneous Notes 10/01/24 labs reviewed. Calcium 8.7; low normal Creatinine 0.68 Vitamin D 35 PTH 34 Plan: To call pt. - Increase Tums Ultra to 3 daily, to take with food; can take 2 Tums and 1 Calcium Citrate with Vitamin D daily. - Check how much total Vit D she is taking; only in MVI or extra as well? - Reclast ordered. documented in this encounter [facility] 09-26-2024 Note HNO ID: [id number] Author: LORA RODRIGUES MD Service: ? Author Type: Physician Type: Progress Notes Filed: 09/26/2024 10:26 Note Text: Endocrinology Virtual Visit This is a virtual visit using [employer] Video Visit. It required patient-provider interaction for the medical decision making as documented below. I have communicated my name and active licensure. The patient's identity and physical location were verified at the time of this visit. Either the patient or their legal primary care sales representative has been informed of the risks and benefits of -- and alternatives to -- treatment through a remote evaluation and consents to proceed with the evaluation remotely. Chief complaint: Osteoporosis, vitamin D deficiency HPI: Tamy Vazquez is a 44 year old year old female who is seen today for a 13-1/2-month for osteoporosis and vitamin D deficiency. Patient requested to be seen for a virtual appointment because of the long travel distance. She initially started following with me since 2013 for hyperparathyroidism; she was seen from [id number]. Then she started following with me for osteoporosis in December 2017. She was not seen by me in 2018 and 2019, then seen on 07/16/2020. -She was last seen in office in person on 06/16/2022 for a 2-year follow-up appointment. She had a virtual appointment on 12/16/2022 and 08/16/2023. Below is pertinent historical data that will be updated during this visit to reflect the patients current status. Osteoporosis: Then she was seen in my office in December 2017 for osteoporosis. She had been on low-dose steroids for mixed connective tissue disorder but has been off steroids. She had osteoporosis but her bone density had improved. She was started on calcium citrate plus vitamin D 2 tablets twice a day her vitamin D level was 50.8 with a PTH level of 17. -Patient was prescribed Actonel 150 mg once a month in December 2017. Patient took 2 doses only; she had severe intolerance with chest tightness with Actonel and medication was discontinued. -Then she was seen by me on 07/16/2020 for osteoporosis. At that time, labs were reviewed and PTH level and vitamin D level were ordered. She had not been taking enough calcium and she was recommended to take calcium citrate plus D 3 pills a day and 2 servings of dairy products daily in diet. -Treatment with Prolia versus date last was discussed with patient. She decided to take Reclast and she had first infusion on 08/25/2022. She tolerated it very well. -At her appointment in November 2022, she was taking calcium carbonate 500 mg calcium and 500 mg vitamin D 1-2 daily. She was also taking multivitamin and vitamin D 2000 IUs daily. -At her 08/16/2023 appointment, she was taking multivitamin, vitamin D 2000 IUs daily, Tums ultra 2-4 a day. Also taking 1-2 dairy products a day. - Second Reclast infusion was on 10/27/2023. Patient is compliant with her calcium multivitamin; also has at least 2 or 3 yogurts every day. -Weight has been stable. No fractures. -Scheduled for Reclast infusion on 10/03/2024. -Labs per PCP: 08/20/2024: Creatinine 0.65. Hb 11.6. -Vitamin D deficiency: Vitamin D level has been stable on multivitamin with 800 units of vitamin D, vitamin D gelcap 2000 IUs daily and calcium carbonate with vitamin D 1-2 a day. For the last about 4 months, she has stopped taking calcium carbonate with vitamin D and she is taking Tums 2-4 daily. -08/30/2023 labs: Calcium 9.3, vitamin D 35.8, PTH 21. Hx Hyperparathyroidism: She was initially referred to me in June 2013 for hyperparathyroidism. At that time, she had normal calcium level of 9.9 with a high PTH level of 91 and 77. She had severe vitamin D deficiency with a vitamin D level of 11.4 in April 2013. She was thought to have secondary hyperparathyroidism. She was given vitamin D and calcium. PTH level was 58 with a fasting calcium of 10.3 in June 2014. Patient also developed kidney stones in June 2014. Her parathyroid scan was negative. She was referred for parathyroid surgery and parathyroid adenoma removal on 08/05/2014. PTH level dropped after surgery. -PTH level has remained stable over the years. Mixed connective tissue disorder: Patient has mixed connective tissue disorder. She is on Plaquenil. Follows with [facility] boss regularly. - She also has interstitial lung disease and she was started on Imuran in 2021. Imuran was stopped and she is on mycophenolate. Not on chronic steroids. -Had a 6-day course of steroids in July 2024 when she had a wrist pain and inflammation. HISTORY REVIEWED (electronic chart updated): 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 Endometriosis, site unspecified Endometriosis Esophageal reflux hx of low vitamin D recheck normal Hyperparathyroidism (HCC) 2014 parathyroidectom (more content not included)... [facility] 09-26-2024 History of Present illness Narrative Endocrinology Virtual Visit This is a virtual visit using [employer] Zoom Video Visit. It required patient-provider interaction for the medical decision making as documented below. I have communicated my name and active licensure. The patient's identity and physical location were verified at the time of this visit. Either the patient or their legal primary care sales representative has been informed of the risks and benefits of -- and alternatives to -- treatment through a remote evaluation and consents to proceed with the evaluation remotely. Chief complaint: Osteoporosis, vitamin D deficiency HPI: Tamy Vazquez is a 44 year old year old female who is seen today for a 13-1/2-month for osteoporosis and vitamin D deficiency. Patient requested to be seen for a virtual appointment because of the long travel distance. She initially started following with me since 2013 for hyperparathyroidism; she was seen from [id number]. Then she started following with me for osteoporosis in December 2017. She was not seen by me in 2018 and 2019, then seen on 07/16/2020. -She was last seen in office in person on 06/16/2022 for a 2-year follow-up appointment. She had a virtual appointment on 12/16/2022 and 08/16/2023. Below is pertinent historical data that will be updated during this visit to reflect the patients current status. Osteoporosis: Then she was seen in my office in December 2017 for osteoporosis. She had been on low-dose steroids for mixed connective tissue disorder but has been off steroids. She had osteoporosis but her bone density had improved. She was started on calcium citrate plus vitamin D 2 tablets twice a day her vitamin D level was 50.8 with a PTH level of 17. -Patient was prescribed Actonel 150 mg once a month in December 2017. Patient took 2 doses only; she had severe intolerance with chest tightness with Actonel and medication was discontinued. -Then she was seen by me on 07/16/2020 for osteoporosis. At that time, labs were reviewed and PTH level and vitamin D level were ordered. She had not been taking enough calcium and she was recommended to take calcium citrate plus D 3 pills a day and 2 servings of dairy products daily in diet. -Treatment with Prolia versus date last was discussed with patient. She decided to take Reclast and she had first infusion on 08/25/2022. She tolerated it very well. -At her appointment in November 2022, she was taking calcium carbonate 500 mg calcium and 500 mg vitamin D 1-2 daily. She was also taking multivitamin and vitamin D 2000 IUs daily. -At her 08/16/2023 appointment, she was taking multivitamin, vitamin D 2000 IUs daily, Tums ultra 2-4 a day. Also taking 1-2 dairy products a day. - Second Reclast infusion was on 10/27/2023. Patient is compliant with her calcium multivitamin; also has at least 2 or 3 yogurts every day. -Weight has been stable. No fractures. -Scheduled for Reclast infusion on 10/03/2024. -Labs per PCP: 08/20/2024: Creatinine 0.65. Hb 11.6. -Vitamin D deficiency: Vitamin D level has been stable on multivitamin with 800 units of vitamin D, vitamin D gelcap 2000 IUs daily and calcium carbonate with vitamin D 1-2 a day. For the last about 4 months, she has stopped taking calcium carbonate with vitamin D and she is taking Tums 2-4 daily. -08/30/2023 labs: Calcium 9.3, vitamin D 35.8, PTH 21. Hx Hyperparathyroidism: She was initially referred to me in June 2013 for hyperparathyroidism. At that time, she had normal calcium level of 9.9 with a high PTH level of 91 and 77. She had severe vitamin D deficiency with a vitamin D level of 11.4 in April 2013. She was thought to have secondary hyperparathyroidism. She was given vitamin D and calcium. PTH level was 58 with a fasting calcium of 10.3 in June 2014. Patient also developed kidney stones in June 2014. Her parathyroid scan was negative. She was referred for parathyroid surgery and parathyroid adenoma removal on 08/05/2014. PTH level dropped after surgery. -PTH level has remained stable over the years. Mixed connective tissue disorder: Patient has mixed connective tissue disorder. She is on Plaquenil. Follows with [employer] boss regularly. - She also has interstitial lung disease and she was started on Imuran in 2021. Imuran was stopped and she is on mycophenolate. Not on chronic steroids. -Had a 6-day course of steroids in July 2024 when she had a wrist pain and inflammation. HISTORY REVIEWED (electronic chart updated): 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 Endometriosis, site unspecified Endometriosis Esophageal reflux hx of low vitamin D recheck normal Hyperparathyroidism ([facility]) 2014 parathyroidectomy Menorrhagia fibroids UFE Nephrolithiasis Osteoporosis 05/2022 with LOSS T-score -3.0 08/2022 nl urine calcium 260 Peripheral vascular disease ([facility]) Personal history of unspecified urinary disorder PMH - PAST MEDICAL HISTORY OF 04/18/2005 blood clot internal jugular vein, 4 weeks diagnosed Protein S deficiency (HCC) 05/19/2002 cavernous sinus thrombosis 4 week Raynaud's syndrome CTD plaquenil Rib fracture 06/19/2014 Seasonal allergies Uterine fibroid s/p UFE PAST SURGICAL HISTORY Procedure Laterality Date EMBOLIZATION UTERINE FIBROID 03/18/2013 LAPAROSCOPIC APPENDECTOMY 03/30/2021 LAPS ABD PRTM&OMENTUM DX W/WO SPEC BR/WA SPX 04/18/2004 Laparoscopy for endometriosis at [place] Dr Soliman at [facility], no control afterward, ++relief and + relief with surgery, laser PARATHYROIDECTOMY/EXPLORATION PARATHYROIDS 08/05/2014 PT ED ENDOCRINOLOGY 2016 RECLAST INJECTION for 1st one via endo 08/2022 FAMILY HISTORY Problem Relation Age of Onset other (hysterectomy) Mother Osteoporosis Mother Asthma Mother Hypertension Father Diabetes Father other (seasonal allergies) Brother No Known Problems Maternal Grandmother No Known Problems Maternal Grandfather No Known Problems Paternal Grandmother Heart Attack Paternal Grandfather ADD/ADHD Son Social History Tobacco Use Smoking status: Never Smokeless tobacco: Never Vaping Use Vaping status: Never Used Substance Use Topics Alcohol use: Yes Alcohol/week: 2.0 standard drinks of alcohol Types: 2 Glasses of Wine (5oz) per week Comment: occasional Drug use: No Current Outpatient Medications Medication Sig mycophenolate sodium DR (MYFORTIC) 180 mg EC tablet Take 4 tablets by mouth two times a day. One AM 3 PM budesonide-formoterol (SYMBICORT) 160-4.5 mcg/actuation inhaler inhale 2 puffs by mouth twice a day - RINSE MOUTH WITH WATER AFT... (REFER TO PRESCRIPTION NOTES). mycophenolate sodium DR (MYFORTIC) 360 mg TbEC Take 1 tablet by mouth once daily. (Patient taking differently: Take 1 tablet by mouth once daily.) DHEA vaginal suppository 13 mg (CPD) Unwrap and insert 1 suppository vaginally at bedtime. Refrigerate remainder of package. Cholecalciferol, Vitamin D3, (VITAMIN D) 25 mcg (1,000 unit) cap Take 2 capsules by mouth once daily. ketoconazole (NIZORAL) 2 % shampoo Ketoconazole 2 % External Shampoo WASH THE SCALP DAILY - LATHER - LEAVE ON FOR 3-5 MINUTES, THEN RINSE Quantity: 120 Refills: 0 Ordered: 29-Jul-2020 DO Start : 14-Jan-2020 Complete Spirometers and Accessories gary 1 Device four times daily. warfarin (COUMADIN) 2 mg tablet Take 1.5 tablets by mouth daily as directed. (Patient taking differently: Take 2 mg by mouth once daily.) montelukast (SINGULAIR) 10 mg tablet Take 10 mg by mouth daily at bedtime. fexofenadine HCl (ERNESTINE ORAL) Take by mouth as needed. Doxycycline Monohydrate 40 mg capsule Take 40 mg by mouth once daily. hydrOXYchloroQUINE (PLAQUENIL) 200 mg tablet Take 200 mg by mouth once daily. No current facility-administered medications for this visit. ALLERGIES Allergen Reactions Amerigel [Zinc Acet* Daniel burning at area Cefdinir Other: See Comments Dizzy Flagyl [Metronidazo* Intolerance, GI Upset Nausea, fatigue, poor appetite REVIEW OF SYSTEM: Review of Systems as per HPI PHYSICAL EXAMINATION: VIDEO EXAM: (if completed, performed via video enabled technology) Physical Exam Well-appearing, no acute distress. ASSESSMENT/PLAN: 1. Osteoporosis without current pathological fracture, unspecified osteoporosis type - ICD9: 733.00, ICD10: M81.0 (primary diagnosis) - Etiology: 1. Hx primary hyperparathyroidism 2. Hx steroid use in past. 3. Calcium and Vitamin deficiency; inadequate calcium supplementation -She was initially diagnosed with Osteoporosis in May 2013 when she had hyperparathyroidism. She also had been on steroids off and on for mixed connective tissue disorder. Repeat bone density in 2014 showed worsening at femoral neck and no change in the spine bone density. - In November 2017, bone density showed some improvement in spine as well as left hip and femoral neck. She still had Osteoporosis and Actonel was prescribed. However, she could not tolerate Actonel. She only took 2 doses and had severe chest tightness, heartburn. -Patient did not have a bone density in 2020. She had interstitial lung disease and was following with her pulmonary physician. She did not take any oral steroids. - Bone density on May 31, 2022 showed worsening of bone density over hip and spine both. T score -1.8 left hip, -3.0 left femoral neck, -2.0 L1-L4 and -1.0 left forearm. -Treatment plan was discussed with patient in detail. Discussed the options of oral Fosamax or Actonel versus Reclast IV infusion. Patient has GERD as well as esophageal dysmotility and she had severe intolerance to Actonel in the past. Hence, I did not recommend oral Actonel/fosamax. -She decided to take Reclast IV infusion. First dose was given on 08/25/2022. -Second dose of Reclast was on 10/27/2023. Scheduled for third dose of Reclast on 10/03/2024. -Diet reviewed; take at least 8 ounce servings of 2 dairy products/day (plain yogurt and lactose-free milk have more calcium) -Continue vitamin D 2000 IUs daily. Continue multivitamin (100 mg calcium/800 units vitamin D). Continue Tums Ultra (400 mg calcium) 2 a day with food. -Exercises encouraged, light weightbearing and low impact aerobics. -Check labs now; then will place order for Reclast. Bone density due, ordered. - PTH INTACT - DXA-AXIAL SKELETON 2. Vitamin D level was 32.8 in December 2017. Vitamin D ordered in 2020; not done. -Vitamin D 54.2 on 06/17/2022, 55.2 on 08/04/2022, 41.1 on 02/21/2023. -Patient is on vitamin D D3 2000 IU gelcap daily and multivitamin with 800 units of vitamin D daily. - She was taking calcium carbonate with 500 mg vitamin D 1-2 a day. In early 2023, she stopped calcium carbonate with D and she started taking Tums 2-4 a day. -08/30/2023: Vitamin D35.8, calcium 9.3, PTH 21. -Currently on multivitamin with 100 mg of calcium and 800 IUs of vitamin D; Tums ultra 2 daily and 2-3 yogurts every day. -Continue current treatment. Recommended at least 2 servings of dairy product every day. 8 ounce plain yogurt and milk have higher level of calcium than fruit flavored yogurts. - Recommended to take Tums with food for better absorption. -Will check vitamin D level now. - VITAMIN D 25 HYDROXY - BASIC METABOLIC PANEL 3. History of parathyroid surgery - ICD9: V45.89, ICD10: Z98.890 Diagnosed with hyperparathyroidism in 2013. At that time, initially she had normal calcium and very low vitamin D. After vitamin D replacement, PTH went down to 58 only and calcium started to go high. Parathyroid scan was negative. She had parathyroid exploration and parathyroid adenoma removal in July 2014. PTH level was 17 in 2014 after surgery when it was 39 in 2018. - Calcium and PTH have been normal. Some elements copied from my notes, which have been updated where appropriate, and all reflect current medical decision making from today, September 26, 2024 Follow up: To call after labs, then decide. Will order Reclast after labs. Labs ordered: BMP, PTH, vitamin D now; bone density by DEXA. I spent a total of 35 minutes on the date of the service which included preparing to see the patient, [id number] patient care, completing clinical documentation, obtaining and/or reviewing separately obtained history, performing a medically appropriate examination, counseling and educating the patient/family/caregiver, and ordering medications, tests, or procedures Lora Rodrigues MD documented in this encounter [facility] 09-25-2024 Telephone encounter Note Spoke w pt and she is scheduled. Serina Parra [facility] 09-25-2024 Miscellaneous Notes Spoke w pt and she is scheduled. Serina Parra Tried to call pt 2x to schedule but its all static. Serina Parra Patient called to have Reclast scheduled. States Dr. Rodrigues ordering. Please review and advise. documented in this encounter [facility] 09-24-2024 Telephone encounter Note Patient was last seen for a virtual appointment on 08/16/2023; 14 months ago. Plan: Schedule appointment. -Can schedule for appointment on 09/26/2024 at 10 AM. - Can do a virtual appointment if unable to come. [facility] 09-24-2024 Miscellaneous Notes Patient was last seen for a virtual appointment on 08/16/2023; 14 months ago. Plan: Schedule appointment. -Can schedule for appointment on 09/26/2024 at 10 AM. - Can do a virtual appointment if unable to come. documented in this encounter [facility] 09-24-2024 Telephone encounter Note Tried to call pt 2x to schedule but its all static. Serina Parra [facility] 09-24-2024 Telephone encounter Note Patient called to have Reclast scheduled. States Dr. Rodrigues ordering. Please review and advise. [facility] Work Phone: 07-30-2024 History of Present illness Narrative Images from the original note were not included. [facility] [place] Tamy Vazquez is a 44 year old female here for a follow up with the [facility] Interstitial Lung Disease Team. HISTORY OF PRESENT ILLNESS: Mixed Connective Tissue Disease: - Reports stable lung function. - Recent body aches and congestion; received an antibiotic prescription but has not started it due to concerns about INR fluctuations. - Experiences frequent temperature changes due to biweekly travel to [place]. - Recent episode of chills after a flight, resolved with hydration and Tylenol. - Fully vaccinated for COVID-19. - Overdue for an echocardiogram; last one was in 2021. - Recent mammogram showed dense tissue but was otherwise normal. Wrist Pain: - Pain initiated after a Pilates class. - Massage in [place] provided temporary relief. - Pain recurs if not wearing a brace at night. Mixed Connective Tissue Disease: - Reports stable lung function. - Recent body aches and congestion; received an antibiotic prescription but has not started it due to concerns about INR fluctuations. - Experiences frequent temperature changes due to biweekly travel to [place]. - Recent episode of chills after a flight, resolved with hydration and Tylenol. - Fully vaccinated for COVID-19. - Overdue for an echocardiogram; last one was in 2021. - Recent mammogram showed dense tissue but was otherwise normal. Wrist Pain: - Pain initiated after a Pilates class. - Massage in [place] provided temporary relief. - Pain recurs if not wearing a brace at night. REVIEW OF SYSTEMS: MRC Dyspnea Scale: 1. Not troubled by breathlessness except on strenuous exercise All others per history of present illness or otherwise negative on detailed 14 point review. 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 Endometriosis, site unspecified Endometriosis Esophageal reflux hx of low vitamin D recheck normal Hyperparathyroidism (HCC) 2015 parathyroidectomy Menorrhagia fibroids UFE Nephrolithiasis Osteoporosis 05/2022 with LOSS T-score -3.0 08/2022 nl urine calcium 260 Peripheral vascular disease (HCC) Personal history of unspecified urinary disorder PMH - PAST MEDICAL HISTORY OF 04/18/2005 blood clot internal jugular vein, 4 weeks diagnosed Protein S deficiency (HCC) 05/19/2002 cavernous sinus thrombosis 4 week Raynaud's syndrome CTD plaquenil Rib fracture 06/19/2014 Seasonal allergies Uterine fibroid s/p UFE PAST SURGICAL HISTORY Procedure Laterality Date EMBOLIZATION UTERINE FIBROID 03/18/2013 LAPAROSCOPIC APPENDECTOMY 03/30/2021 LAPS ABD PRTM&OMENTUM DX W/WO SPEC BR/WA SPX 04/18/2004 Laparoscopy for endometriosis at [place] Dr Soliman at [facility], no control afterward, ++relief and + relief with surgery, laser PARATHYROIDECTOMY/EXPLORATION PARATHYROIDS 08/05/2014 PT ED ENDOCRINOLOGY 2016 RECLAST INJECTION for 1st one via endo 08/2022 SOCIAL HISTORY: Social History Tobacco Use Smoking status: Never Smokeless tobacco: Never Alcohol Use: Approximately 1.2 oz/week [which includes 2 Glasses of Wine (5oz) per week] (occasional) Drug Use: No FAMILY HISTORY Problem Relation Age of Onset other (hysterectomy) Mother Osteoporosis Mother Asthma Mother Hypertension Father Diabetes Father other (seasonal allergies) Brother No Known Problems Maternal Grandmother No Known Problems Maternal Grandfather No Known Problems Paternal Grandmother Heart Attack Paternal Grandfather ADD/ADHD Son ALLERGIES Allergen Reactions Amerigel [Zinc Acet* Daniel burning at area Cefdinir Other: See Comments Dizzy Flagyl [Metronidazo* Intolerance, GI Upset Nausea, fatigue, poor appetite CURRENT MEDICATIONS budesonide-formoterol (SYMBICORT) 160-4.5 mcg/actuation inhaler inhale 2 puffs by mouth twice a day - RINSE MOUTH WITH WATER AFT... (REFER TO PRESCRIPTION NOTES). mycophenolate sodium DR (MYFORTIC) 360 mg TbEC Take 1 tablet by mouth once daily. DHEA vaginal suppository 13 mg (CPD) Unwrap and insert 1 suppository vaginally at bedtime. Refrigerate remainder of package. Cholecalciferol, Vitamin D3, (VITAMIN D) 25 mcg (1,000 unit) cap Take 2 capsules by mouth once daily. ketoconazole (NIZORAL) 2 % shampoo Ketoconazole 2 % External Shampoo WASH THE SCALP DAILY - LATHER - LEAVE ON FOR 3-5 MINUTES, THEN RINSE Quantity: 120 Refills: 0 Ordered: 29-Jul-2020 DO Start : 14-Jan-2020 Complete Spirometers and Accessories gary 1 Device four times daily. warfarin (COUMADIN) 2 mg tablet Take 1.5 tablets by mouth daily as directed. (Patient taking differently: Take 2 mg by mouth once daily.) montelukast (SINGULAIR) 10 mg tablet Take 10 mg by mouth daily at bedtime. fexofenadine HCl (ERNESTINE ORAL) Take by mouth as needed. Doxycycline Monohydrate 40 mg capsule Take 40 mg by mouth once daily. hydrOXYchloroQUINE (PLAQUENIL) 200 mg tablet Take 200 mg by mouth once daily. PHYSICAL EXAM: BP 97/67 Pulse 85 Resp 20 SpO2 98% [facility] 03/23/2020 General: Alert, oriented, no acute distress Neck: No carotid bruit on bilateral auscultation Respiratory: Crackles noted bilaterally Cardiovascular: Jugular venous pressure normal. Regular rate and rhythm, normal S1 and S2, no murmurs or added sounds Abdomen: Soft, non-tender, normal bowel sounds Extremities: No clubbing, cyanosis, or edema DATA REVIEWED (independently reviewed by myself) Imaging: - Mammogram: Initially noted dense breast tissue; repeat imaging was negative - Wrist imaging: No abnormalities - (2021) Echocardiogram: Normal lled outside 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 [phone][place] in April 2020 Discussed again November 2022--changing of meds from imuran to low dose mycophenylate Has pat diagnsoed with MCTD with likley scleroderma features Gabriel 1:1280 positve ladle mechanic ab Cbc and hepatic panel wnl-apr 2021 Cbc--august 2021--wnl Cbc/lft--02/2023--wnl Lft and cbc--august 2023--wnl Laboratory Data Laboratory data reviewed in [facility] Everywhere. September 2020-cbc and hepatic wnl June 2024-cbc and lft wnl Pulmonary Function Data PFT available: Yes. PFT results Outside hospital-mar 2020 fvc-50%-1.85liters fev1-51% dlco -61%. pfts-november 2020 fvc-1.98 liters (53%)-dlco 49% pfts-may 2021 fvc-2.04 liters--65% dlco-55% PFT--September 2021-- fvc-1.73 liters-47% dlco-43% PFT--November 2021- Fvc-1.99 (54%) Dlco--45% PFT--fvc--1.95--58% Dlco--46%--may 2022 PFT-November 2022 Fev1 50%' fvc-48%--1,64 liters Dlco-42% PFT mar 2023- FVC 1.73 liters-52% Dlco-54% PFT-August 2023--fvc--1.91 liters--58% Dlco-53% PFT-Feb 2024 Fvc-1.81 liters-55% Dlco-53% PFT-July 2024 Fvc 1.76liters-53% Dlco-49% Six minute walk Six minute walk available: No Radiology Is a CT scan available?: Standard CT available Reviewed by me-mar 2020--fibrotic disease predominantly bases--UIP type pattern Enlarged esophagus Ct -12/2022--stable htrct--ILD changes-UIP pattern Echocardiogram Was an echo performed?: yes May 2020--normal lv/rv-no evidence of pum htn Echo-2021--normal lv and rv function Heart Catheterization Was a right heart catheterization performed?: No ASSESSMENT 1. Pulmonary arterial hypertension (HCC) (I27.21) 2. Pulmonary hypertension (HCC) (I27.20) 3. Mixed connective tissue disease (HCC) (M35.1) - Lung function remains stable; auscultation reveals persistent crackles. - Discussed the risk of pulmonary hypertension due to mixed connective tissue disease, including lupus and scleroderma, which can cause inflammation and tightening of pulmonary arteries, leading to increased pressure. - Ordered echocardiogram to screen for pulmonary hypertension; last echocardiogram was in 2021 and showed no abnormalities. - Patient understands the importance of regular screening and agrees to schedule the echocardiogram at [place] or [facility] at her earliest convenience. - Advised patient on the potential for infections due to immunosuppression from Myfortic and frequent travel; discussed the difference between allergy symptoms and infections. - Patient to monitor symptoms and report any significant changes. - Follow-up in 6 months to review echocardiogram results and reassess condition.1ILD--MCTD--UIP pattern--on low dose myfortic 4.TPMT intermediate activity 5.CHAVES -stable 6hiatal hernia--large--manometry 2020--evidence of decreased esophageal contractility--no gerd 7.MCTD--no evidence of pulm htn on most recent echo 2022 8.moderate restrictive disease-stable pfts PLAN 1.myfortic-delayed release mycophenylate--180mg tid 2.cbc and lft qmonth 3.possible escalation to rituxan--symptoms and pfts however remian stable 4.fup 5-6-months 5.had repeat ct already in dec 2022--will need again in 2024 6.pfts in 5-6 months 7.check echo PLAN Treating diagnosis: MCTD: Mixed connective tissue disease ILD medications at end of visit: myfortic Follow-up 6 months ILD CHECKLIST Was the patient discussed at a multidisciplinary discussion?: No Is the patient being treated with oxygen therapy?: No Does the patient have pulmonary hypertension: Suspected but not yet confirmed Is the patient being referred for transplantation?: No I spent a total of 45 minutes on the date of the service which included preparing to see the patient, [id number] patient care, completing clinical documentation, obtaining and/or reviewing separately obtained history, performing a medically appropriate examination, counseling and educating the patient/family/caregiver, ordering medications, tests, or procedures, communicating with other HCPs (not separately reported), independently interpreting results (not separately reported), communicating results to the patient/family/caregiver, and care coordination (not separately reported). CC: documented in this encounter [facility] 07-30-2024 Note HNO ID: [id number] Author: ALAN RENE MD Service: ? Author Type: Physician Type: Progress Notes Filed: 07/30/2024 16:52 Note Text: Respiratory [place] Tamy Vazquez is a 44 year old female here for a follow up with the [facility] Interstitial Lung Disease Team. HISTORY OF PRESENT ILLNESS: Mixed Connective Tissue Disease: - Reports stable lung function. - Recent body aches and congestion; received an antibiotic prescription but has not started it due to concerns about INR fluctuations. - Experiences frequent temperature changes due to biweekly travel to [place]. - Recent episode of chills after a flight, resolved with hydration and Tylenol. - Fully vaccinated for COVID-19. - Overdue for an echocardiogram; last one was in 2021. - Recent mammogram showed dense tissue but was otherwise normal. Wrist Pain: - Pain initiated after a Pilates class. - Massage in [place] provided temporary relief. - Pain recurs if not wearing a brace at night. Mixed Connective Tissue Disease: - Reports stable lung function. - Recent body aches and congestion; received an antibiotic prescription but has not started it due to concerns about INR fluctuations. - Experiences frequent temperature changes due to biweekly travel to [place]. - Recent episode of chills after a flight, resolved with hydration and Tylenol. - Fully vaccinated for COVID-19. - Overdue for an echocardiogram; last one was in 2021. - Recent mammogram showed dense tissue but was otherwise normal. Wrist Pain: - Pain initiated after a Pilates class. - Massage in [place] provided temporary relief. - Pain recurs if not wearing a brace at night. REVIEW OF SYSTEMS: MRC Dyspnea Scale: 1. Not troubled by breathlessness except on strenuous exercise All others per history of present illness or otherwise negative on detailed 14 point review. 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 Endometriosis, site unspecified Endometriosis Esophageal reflux hx of low vitamin D recheck normal Hyperparathyroidism (HCC) 2014 parathyroidectomy Menorrhagia fibroids UFE Nephrolithiasis Osteoporosis 05/2022 with LOSS T-score -3.0 08/2022 nl urine calcium 260 Peripheral vascular disease (HCC) Personal history of unspecified urinary disorder PMH - PAST MEDICAL HISTORY OF 04/18/2005 blood clot internal jugular vein, 4 weeks diagnosed Protein S deficiency (HCC) 05/19/2002 cavernous sinus thrombosis 4 week Raynaud's syndrome CTD plaquenil Rib fracture 06/19/2014 Seasonal allergies Uterine fibroid s/p UFE PAST SURGICAL HISTORY Procedure Laterality Date EMBOLIZATION UTERINE FIBROID 03/18/2013 LAPAROSCOPIC APPENDECTOMY 03/30/2021 LAPS ABD PRTMANDOMENTUM DX W/WO SPEC BR/WA SPX 04/18/2004 Laparoscopy for endometriosis at [place] Dr Soliman at [facility], no control afterward, ++relief and + relief with surgery, laser PARATHYROIDECTOMY/EXPLORATION PARATHYROIDS 08/05/2014 PT ED ENDOCRINOLOGY 2016 RECLAST INJECTION for 1st one via endo 08/2022 SOCIAL HISTORY: Social History Tobacco Use Smoking status: Never Smokeless tobacco: Never Alcohol Use: Approximately 1.2 oz/week [which includes 2 Glasses of Wine (5oz) per week] (occasional) Drug Use: No FAMILY HISTORY Problem Relation Age of Onset other (hysterectomy) Mother Osteoporosis Mother Asthma Mother Hypertension Father Diabetes Father other (seasonal allergies) Brother No Known Problems Maternal Grandmother No Known Problems Maternal Grandfather No Known Problems Paternal Grandmother Heart Attack Paternal Grandfather ADD/ADHD Son ALLERGIES Allergen Reactions Amerigel [Zinc Acet* Daniel burning at area Cefdinir Other: See Comments Dizzy Flagyl [Metronidazo* Intolerance, GI Upset Nausea, fatigue, poor appetite CURRENT MEDICATIONS budesonide-formoterol (SYMBICORT) 160-4.5 mcg/actuation inhaler inhale 2 puffs by mouth twice a day - RINSE MOUTH WITH WATER AFT... (REFER TO PRESCRIPTION NOTES). mycophenolate sodium DR (MYFORTIC) 360 mg TbEC Take 1 tablet by mouth once daily. DHEA vaginal suppository 13 mg (CPD) Unwrap and insert 1 suppository vaginally at bedtime. Refrigerate remainder of package. Cholecalciferol, Vitamin D3, (VITAMIN D) 25 mcg (1,000 unit) cap Take 2 capsules by mouth once daily. ketoconazole (NIZORAL) 2 % shampoo Ketoconazole 2 % External Shampoo WASH THE SCALP DAILY - LATHER - LEAVE ON FOR 3-5 MINUTES, THEN RINSE Quantity: 120 Refills: 0 Ordered: 29-Jul-2020 DO Start : 14-Jan-2020 Complete Spirometers and Accessories gary 1 Device four times daily. warfarin (COUMADIN) 2 mg tablet Take 1.5 tablets by mouth daily as directed. (Patient taking differently: Take 2 mg by mouth once daily.) montelukast (SINGULAIR) 10 mg tablet Take 10 mg by mouth da (more content not included)... [facility] 06-06-2024 Evaluation + Plan note Associated Problem(s): Coated tongue Wait for culture results [facility] Work Phone: 06-06-2024 Evaluation + Plan note Associated Problem(s): Hypercoagulable state, secondary (Multi) Stable on current medications Continue meds and exercise. Will continue home monitoring of coumadin [facility] Work Phone: 06-06-2024 Evaluation + Plan note Associated Problem(s): Blood clotting disorder (Multi) Stable on current medications Continue meds and exercise. [facility] Work Phone: 06-06-2024 Miscellaneous Notes Associated Problem(s): Coated tongue Wait for culture results Associated Problem(s): Hypercoagulable state, secondary (Multi) Stable on current medications Continue meds and exercise. Will continue home monitoring of coumadin Associated Problem(s): Blood clotting disorder (Multi) Stable on current medications Continue meds and exercise. documented in this encounter [facility] Work Phone: 06-04-2024 History of Present illness Narrative Subjective Patient ID: Tamy Vazquez is a 44 y.o. female who presents for Follow-up (Medication refill). Today she is accompanied by alone. HPI Depression is stable Using Xanax to sleep as needed Doing well on coumadin and INR yesterday was 2.0 Checking weekly Also has a sore throat that is bothering her for some time She denies drainage or gerd Is on Symbicort as needed and not having to use albuterol No other concerns. Review of Systems Constitutional: Negative for activity change, appetite change, chills, diaphoresis, fatigue, fever and unexpected weight change. HENT: Negative for congestion, dental problem, drooling, ear discharge, ear pain, facial swelling, hearing loss, nosebleeds, postnasal drip, rhinorrhea, sinus pressure, sinus pain, sneezing, sore throat, tinnitus, trouble swallowing and voice change. Eyes: Negative for pain, discharge, redness, itching and visual disturbance. Respiratory: Negative for cough, chest tightness, shortness of breath and wheezing. Cardiovascular: Negative for chest pain, palpitations and leg swelling. Gastrointestinal: Negative for abdominal pain, blood in stool, constipation, diarrhea, nausea and vomiting. Endocrine: Negative for cold intolerance, heat intolerance, polydipsia, polyphagia and polyuria. Genitourinary: Negative for decreased urine volume, dysuria, flank pain, frequency, hematuria and urgency. Musculoskeletal: Negative for arthralgias, back pain, gait problem, joint swelling, myalgias and neck stiffness. Skin: Negative for color change, pallor, rash and wound. Neurological: Negative for dizziness. Hematological: Negative for adenopathy. Does not bruise/bleed easily. Psychiatric/Behavioral: Negative for agitation, behavioral problems and sleep disturbance. The patient is not nervous/anxious. Objective BP 100/62 Pulse 81 Temp 36.8 C (98.2 F) (Oral) Ht 1.6 m (5' 3) Wt 52.8 kg (116 lb 6.4 oz) LMP (LMP Unknown) SpO2 98% BMI 20.62 kg/m BSA: 1.53 meters squared Growth percentiles: Facility age limit for growth %lizzie is 20 years. Facility age limit for growth %lizzie is 20 years. Physical Exam Vitals and nursing note reviewed. Constitutional: General: She is not in acute distress. Appearance: Normal appearance. She is not ill-appearing, toxic-appearing or diaphoretic. HENT: Head: Normocephalic and atraumatic. Right Ear: Tympanic membrane, ear canal and external ear normal. There is no impacted cerumen. Left Ear: Tympanic membrane, ear canal and external ear normal. There is no impacted cerumen. Nose: No congestion or rhinorrhea. Mouth/Throat: Mouth: Mucous membranes are moist. Pharynx: Oropharynx is clear. No oropharyngeal exudate or posterior oropharyngeal erythema. Eyes: General: No scleral icterus. Right eye: No discharge. Left eye: No discharge. Extraocular Movements: Extraocular movements intact. Conjunctiva/sclera: Conjunctivae normal. Pupils: Pupils are equal, round, and reactive to light. Neck: Vascular: No carotid bruit. Cardiovascular: Rate and Rhythm: Normal rate and regular rhythm. Pulses: Normal pulses. Heart sounds: Normal heart sounds. No murmur heard. No friction rub. No gallop. Pulmonary: Effort: Pulmonary effort is normal. No respiratory distress. Breath sounds: Normal breath sounds. No stridor. No wheezing, rhonchi or rales. Chest: Chest wall: No tenderness. Musculoskeletal: General: Normal range of motion. Cervical back: Normal range of motion and neck supple. No rigidity or tenderness. Right lower leg: No edema. Left lower leg: No edema. Lymphadenopathy: Cervical: No cervical adenopathy. Skin: General: Skin is warm and dry. Neurological: General: No focal deficit present. Mental Status: She is alert and oriented to person, place, and time. Psychiatric: Mood and Affect: Mood normal. Behavior: Behavior normal. Thought Content: Thought content normal. Judgment: Judgment normal. Assessment/Plan Problem List Items Addressed This Visit ICD-10-CM Blood clotting disorder (Multi) D68.9 Stable on current medications Continue meds and exercise. ILD (interstitial lung disease) (Multi) J84.9 Relevant Orders Referral to [facility] MCTD (mixed connective tissue disease) (Multi) M35.1 Relevant Orders Referral to [facility] Osteoporosis without current pathological fracture M81.0 Relevant Orders XR DEXA bone density Vitamin D 25-Hydroxy,Total (for eval of Vitamin D levels) TSH with reflex to Free T4 if abnormal Hypercoagulable state, secondary (Multi) D68.69 Stable on current medications Continue meds and exercise. Will continue home monitoring of coumadin Relevant Orders Referral to [facility] Psoriatic arthritis (Multi) L40.50 Relevant Orders Referral to Population [facility] RESOLVED: Encounter for annual general medical examination without abnormal findings in adult Z00.00 Relevant Orders Lipid Panel CBC and Auto Differential TSH with reflex to Free T4 if abnormal Comprehensive Metabolic Panel Coated tongue - Primary K14.3 Wait for culture results Relevant Orders Fungal Culture/Smear (Completed) Other Visit Diagnoses Codes Encounter for screening mammogram for malignant neoplasm of breast Z12.31 Relevant Orders BI mammo bilateral screening tomosynthesis TSH with reflex to Free T4 if abnormal Anxiety F41.9 Relevant Medications ALPRAZolam (Xanax) 0.5 mg tablet sertraline (Zoloft) 25 mg tablet Other Relevant Orders TSH with reflex to Free T4 if abnormal Anemia, unspecified type D64.9 Relevant Orders Vitamin B12 Folate Sore throat J02.9 Relevant Orders Fungal Culture/Smear (Completed) Encounter for osteoporosis screening in asymptomatic postmenopausal patient Z13.820, Z78.0 Relevant Orders XR DEXA bone density TSH with reflex to Free T4 if abnormal Current Outpatient Medications Medication Sig Dispense Refill albuterol 90 mcg/actuation inhaler Inhale 2 puffs every 4 hours if needed for shortness of breath. budesonide-formoteroL (Symbicort) 160-4.5 mcg/actuation inhaler Inhale 2 puffs 2 times a day. Rinse mouth with water after use to reduce aftertaste and incidence of candidiasis. Do not swallow. 10.2 g 1 clobetasol (Temovate) 0.05 % ointment Apply topically 2 times a day. 60 g 0 doxycycline (Oracea) [address] capsule Take 1 capsule (40 mg) by mouth once daily in the morning. Do not crush or chew. Take with a full glass of water and do not lie down for at least 30 minutes after. esomeprazole (NexIUM) [address] capsule Take 1 capsule (40 mg) by mouth 2 times a day. Do not open capsule. hydrocortisone 2.5 % cream apply to THE UPPER LIP AND EYEBROWS twice a day for up to TWO WEEKS then DISCONTINUE hydroxychloroquine (Plaquenil) 200 mg tablet Take 1 tablet (200 mg) by mouth once daily. montelukast (Singulair) 10 mg tablet take 1 tablet by mouth at bedtime 90 tablet 0 mycophenolate (Myfortic) 180 mg EC tablet take 1 tablet by mouth three times a day 270 tablet 1 nystatin (Mycostatin) 100,000 unit/mL suspension Take 5 mL (500,000 Units) by mouth 4 times a day. Swish in mouth and swallow. 200 mL 0 warfarin (Coumadin) 1 mg tablet take 1 to 2 tablet by mouth once daily 180 tablet 0 warfarin (Coumadin) 3 mg tablet Take 1 tablet (3 mg) by mouth once daily in the evening. 90 tablet 2 warfarin (Coumadin) 4 mg tablet Take 1 tablet (4 mg) by mouth. Take as directed per After Visit Summary. Winlevi 1 % cream Apply 1 Application topically once daily. ALPRAZolam (Xanax) 0.5 mg tablet Take 1 tablet (0.5 mg) by mouth 2 times a day as needed for anxiety or sleep. 30 tablet 0 sertraline (Zoloft) 25 mg tablet Take 1 tablet (25 mg) by mouth once daily. 90 tablet 1 No current facility-administered medications for this visit. OARRS: Tayo Rodriguez MD on 06/04/2024 10:56 AM I have personally reviewed the OARRS report for Tamy Vazquez. I have considered the risks of abuse, dependence, addiction and diversion and I believe that it is clinically appropriate for Tamy Vazquez to be prescribed this medication Is the patient prescribed a combination of a benzodiazepine and opioid? No Last Urine Drug Screen / ordered today: No No results found for this or any previous visit (from the past 8760 hours). N/A Clinical rationale for not completing a Urine Drug Screen: new start Controlled Substance Agreement: Date of the Last Agreement: 06/04/2024 Reviewed Controlled Substance Agreement including but not limited to the benefits, risks, and alternatives to treatment with a Controlled Substance medication(s). Benzodiazepines: What is the patient's goal of therapy? Panic attack and anxiety Is this being achieved with current treatment? yes JANICE-7: No data recorded Activities of Daily Living: Is your overall impression that this patient is benefiting (symptom reduction outweighs side effects) from benzodiazepine therapy? Yes 1. Physical Functioning: Better 2. Family Relationship: Better 3. Social Relationship: Better 4. Mood: Better 5. Sleep Patterns: Better 6. Overall Function: Better F/U in 3-4 months for Annual wellness and depression Continue current medications Call if any new concerns Fasting labs prior to next visit Reviewed consultation reports. Immunizations revised Labs reviewed I personally spent over 50% of a total 40 minutes in counseling and discussion with the patient and coordination of care as described above. documented in this encounter [facility] Work Phone: 03-29-2024 Note HNO ID: [id number] Author: MADISON MEDINA APRN.MALE INFERTILITY SPECIALIST Service: ? Author Type: Nurse Practitioner Type: Progress Notes Filed: 03/29/2024 13:27 Note Text: This note was created using Power2[employer]. Subjective Tamy Vazquez is a 43 year old female. 43 year old female with PMH hyperparathyroid and osteoporosis presents for toe complaints Acute onset 2 days ago Right great toe +redness +swelling +pain Denies trauma or injury Denies fever or chills Denies drainage Endorses that she cut her nails a few days ago She has a podiatry appt scheduled next Tuesday She is on Augmentin for tonsillitis Has used epsom soaks The history is provided by the patient. 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 Musculoskeletal Problem This is a new problem. The current episode started yesterday. The problem occurs constantly. The problem has been gradually worsening. Associated symptoms include joint swelling. Pertinent negatives include no abdominal pain, anorexia, arthralgias, change in bowel habit, chest pain, chills, congestion, coughing, diaphoresis, fatigue, fever, headaches, myalgias, nausea, neck pain, numbness, rash, sore throat, swollen glands, urinary symptoms, vertigo, visual change, vomiting or weakness. Exacerbated by: soapy soaks. She has tried nothing for the symptoms. The treatment provided no relief. 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 Endometriosis, site unspecified Endometriosis Esophageal reflux hx of low vitamin D recheck normal Hyperparathyroidism (HCC) 2015 parathyroidectomy Menorrhagia fibroids UFE Nephrolithiasis Osteoporosis 05/2022 with LOSS T-score -3.0 08/2022 nl urine calcium 260 Peripheral vascular disease (HCC) Personal history of unspecified urinary disorder PMH - PAST MEDICAL HISTORY OF 04/18/2005 blood clot internal jugular vein, 4 weeks diagnosed Protein S deficiency (HCC) 05/19/2002 cavernous sinus thrombosis 4 week Raynaud's syndrome CTD plaquenil Rib fracture 06/19/2014 Seasonal allergies Uterine fibroid s/p UFE PAST SURGICAL HISTORY Procedure Laterality Date EMBOLIZATION UTERINE FIBROID 03/18/2013 LAPAROSCOPIC APPENDECTOMY 03/30/2021 LAPS ABD PRTMANDOMENTUM DX W/WO SPEC BR/WA SPX 04/18/2004 Laparoscopy for endometriosis at [place] Dr [facility]iman at [facility], no control afterward, ++relief and + relief with surgery, laser PARATHYROIDECTOMY/EXPLORATION PARATHYROIDS 08/05/2014 PT ED ENDOCRINOLOGY 2016 RECLAST INJECTION for 1st one via endo 08/2022 ALLERGIES Amerigel [Zinc Acetate], Cefdinir, and Flagyl [Metronidazole] MEDICATIONS budesonide-formoterol (SYMBICORT) 160-4.5 mcg/actuation inhaler inhale 2 puffs by mouth twice a day - RINSE MOUTH WITH WATER AFT... (REFER TO PRESCRIPTION NOTES). mycophenolate sodium DR (MYFORTIC) 360 mg TbEC Take 1 tablet by mouth once daily. DHEA vaginal suppository 13 mg (CPD) Unwrap and insert 1 suppository vaginally at bedtime. Refrigerate remainder of package. Cholecalciferol, Vitamin D3, (VITAMIN D) 25 mcg (1,000 unit) cap Take 2 capsules by mouth once daily. ketoconazole (NIZORAL) 2 % shampoo Ketoconazole 2 % External Shampoo WASH THE SCALP DAILY - LATHER - LEAVE ON FOR 3-5 MINUTES, THEN RINSE Quantity: 120 Refills: 0 Ordered: 29-Jul-2020 DO Start : 14-Jan-2020 Complete Spirometers and Accessories gary 1 Device four times daily. warfarin (COUMADIN) 2 mg tablet Take 1.5 tablets by mouth daily as directed. (Patient taking differently: Take 2 mg by mouth once daily.) montelukast (SINGULAIR) 10 mg tablet Take 10 mg by mouth daily at bedtime. fexofenadine HCl (ERNESTINE ORAL) Take by mouth as needed. Doxycycline Monohydrate 40 mg capsule Take 40 mg by mouth once daily. hydrOXYchloroQUINE (PLAQUENIL) 200 mg tablet Take 200 mg by mouth once daily. cephALEXin (KEFLEX) 500 mg capsule Take 1 capsule by mouth four times daily for 5 days. FAMILY HISTORY Problem Relation Age of Onset other (hysterectomy) Mother Osteoporosis Mother Asthma Mother Hypertension Father Diabetes Father other (seasonal allergies) Brother No Known Problems Maternal Grandmother No Known Problems Maternal Grandfather No Known Problems Paternal Grandmother Heart Attack Paternal Grandfather ADD/ADHD Son Social History Tobacco Use Smoking status: Never Smokeless tobacco: Never Vaping Use Vaping status: Never Used Substance Use Topics Alcohol use: Yes Alcohol/week: 2.0 standard drinks of alcohol Types: 2 Glasses of Wine (5oz) per week Comment: occasional Drug use: No Review of Systems Constitutional: Negative for chills, diaphoresis, fatigue and fever. HENT: Negative for congestion and sore throat. Eyes: Negative for photophobia, pain, discharge, redness and itching. Respiratory: Negative for apnea, cough, choking and chest ti (more content not included)... [facility] 03-29-2024 History of Present illness Narrative This note was created using [employer]. Subjective Tamy Vaqzuez is a 43 year old female. 43 year old female with PMH hyperparathyroid and osteoporosis presents for toe complaints Acute onset 2 days ago Right great toe +redness +swelling +pain Denies trauma or injury Denies fever or chills Denies drainage Endorses that she cut her nails a few days ago She has a podiatry appt scheduled next Tuesday She is on Augmentin for tonsillitis Has used epsom soaks The history is provided by the patient. 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 Musculoskeletal Problem This is a new problem. The current episode started yesterday. The problem occurs constantly. The problem has been gradually worsening. Associated symptoms include joint swelling. Pertinent negatives include no abdominal pain, anorexia, arthralgias, change in bowel habit, chest pain, chills, congestion, coughing, diaphoresis, fatigue, fever, headaches, myalgias, nausea, neck pain, numbness, rash, sore throat, swollen glands, urinary symptoms, vertigo, visual change, vomiting or weakness. Exacerbated by: soapy soaks. She has tried nothing for the symptoms. The treatment provided no relief. 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 raynauds Endometriosis, site unspecified Endometriosis Esophageal reflux hx of low vitamin D recheck normal Hyperparathyroidism (HCC) 2014 parathyroidectomy Menorrhagia fibroids UFE Nephrolithiasis Osteoporosis 05/2022 with LOSS T-score -3.0 08/2022 nl urine calcium 260 Peripheral vascular disease (HCC) Personal history of unspecified urinary disorder PMH - PAST MEDICAL HISTORY OF 04/18/2005 blood clot internal jugular vein, 4 weeks diagnosed Protein S deficiency (HCC) 05/19/2002 cavernous sinus thrombosis 4 week Raynaud's syndrome CTD plaquenil Rib fracture 06/19/2014 Seasonal allergies Uterine fibroid s/p UFE PAST SURGICAL HISTORY Procedure Laterality Date EMBOLIZATION UTERINE FIBROID 03/18/2013 LAPAROSCOPIC APPENDECTOMY 03/30/2021 LAPS ABD PRTM&OMENTUM DX W/WO SPEC BR/WA SPX 04/18/2004 Laparoscopy for endometriosis at [place] Dr Soliman at [facility], no control afterward, ++relief and + relief with surgery, laser PARATHYROIDECTOMY/EXPLORATION PARATHYROIDS 08/05/2014 PT ED ENDOCRINOLOGY 2016 RECLAST INJECTION for 1st one via endo 08/2022 ALLERGIES Amerigel [Zinc Acetate], Cefdinir, and Flagyl [Metronidazole] MEDICATIONS budesonide-formoterol (SYMBICORT) 160-4.5 mcg/actuation inhaler inhale 2 puffs by mouth twice a day - RINSE MOUTH WITH WATER AFT... (REFER TO PRESCRIPTION NOTES). mycophenolate sodium DR (MYFORTIC) 360 mg TbEC Take 1 tablet by mouth once daily. DHEA vaginal suppository 13 mg (CPD) Unwrap and insert 1 suppository vaginally at bedtime. Refrigerate remainder of package. Cholecalciferol, Vitamin D3, (VITAMIN D) 25 mcg (1,000 unit) cap Take 2 capsules by mouth once daily. ketoconazole (NIZORAL) 2 % shampoo Ketoconazole 2 % External Shampoo WASH THE SCALP DAILY - LATHER - LEAVE ON FOR 3-5 MINUTES, THEN RINSE Quantity: 120 Refills: 0 Ordered: 29-Jul-2020 DO Start : 14-Jan-2020 Complete Spirometers and Accessories gary 1 Device four times daily. warfarin (COUMADIN) 2 mg tablet Take 1.5 tablets by mouth daily as directed. (Patient taking differently: Take 2 mg by mouth once daily.) montelukast (SINGULAIR) 10 mg tablet Take 10 mg by mouth daily at bedtime. fexofenadine HCl (ERNESTINE ORAL) Take by mouth as needed. Doxycycline Monohydrate 40 mg capsule Take 40 mg by mouth once daily. hydrOXYchloroQUINE (PLAQUENIL) 200 mg tablet Take 200 mg by mouth once daily. cephALEXin (KEFLEX) 500 mg capsule Take 1 capsule by mouth four times daily for 5 days. FAMILY HISTORY Problem Relation Age of Onset other (hysterectomy) Mother Osteoporosis Mother Asthma Mother Hypertension Father Diabetes Father other (seasonal allergies) Brother No Known Problems Maternal Grandmother No Known Problems Maternal Grandfather No Known Problems Paternal Grandmother Heart Attack Paternal Grandfather ADD/ADHD Son Social History Tobacco Use Smoking status: Never Smokeless tobacco: Never Vaping Use Vaping status: Never Used Substance Use Topics Alcohol use: Yes Alcohol/week: 2.0 standard drinks of alcohol Types: 2 Glasses of Wine (5oz) per week Comment: occasional Drug use: No Review of Systems Constitutional: Negative for chills, diaphoresis, fatigue and fever. HENT: Negative for congestion and sore throat. Eyes: Negative for photophobia, pain, discharge, redness and itching. Respiratory: Negative for apnea, cough, choking and chest tightness. Cardiovascular: Negative for chest pain. Gastrointestinal: Negative for abdominal pain, anorexia, change in bowel habit, nausea and vomiting. Musculoskeletal: Positive for joint swelling. Negative for arthralgias, myalgias and neck pain. Skin: Negative for rash. Allergic/Immunologic: Negative for environmental allergies, food allergies and immunocompromised state. Neurological: Negative for vertigo, weakness, numbness and headaches. Hematological: Negative for adenopathy. Does not bruise/bleed easily. Psychiatric/Behavioral: Negative for agitation and behavioral problems. Objective BP 103/70 Pulse 83 Temp 36.7 C (98 F) Resp 18 Wt 52 kg (114 lb 10.2 oz) LMP 03/23/2020 (Exact Date) SpO2 99% BMI 19.99 kg/m Physical Exam Vitals and nursing note reviewed. Constitutional: General: She is not in acute distress. Appearance: Normal appearance. She is normal weight. She is not ill-appearing, toxic-appearing or diaphoretic. HENT: Head: Normocephalic and atraumatic. Right Ear: Ear canal and external ear normal. Left Ear: Ear canal and external ear normal. Nose: Nose normal. No congestion or rhinorrhea. Mouth/Throat: Mouth: Mucous membranes are moist. Pharynx: No oropharyngeal exudate or posterior oropharyngeal erythema. Eyes: General: Right eye: No discharge. Left eye: No discharge. Extraocular Movements: Extraocular movements intact. Conjunctiva/sclera: Conjunctivae normal. Pupils: Pupils are equal, round, and reactive to light. Cardiovascular: Rate and Rhythm: Normal rate and regular rhythm. Pulses: Normal pulses. Heart sounds: Normal heart sounds. No murmur heard. No friction rub. Pulmonary: Effort: Pulmonary effort is normal. No respiratory distress. Breath sounds: Normal breath sounds. No stridor. No wheezing, rhonchi or rales. Chest: Chest wall: No tenderness. Abdominal: General: Abdomen is flat. There is no distension. Palpations: Abdomen is soft. There is no mass. Tenderness: There is no abdominal tenderness. There is no right CVA tenderness, left CVA tenderness, guarding or rebound. Hernia: No hernia is present. Musculoskeletal: General: Tenderness present. No swelling, deformity or signs of injury. Normal range of motion. Cervical back: Normal range of motion and neck supple. No rigidity. Right lower leg: No edema. Left lower leg: No edema. Comments: Right great toe with erythema Mild swelling +TTP (Toe nails all painted dark red) +neuro +sensation Lymphadenopathy: Cervical: No cervical adenopathy. Skin: General: Skin is warm and dry. Coloration: Skin is not jaundiced or pale. Findings: No bruising, erythema, lesion or rash. Neurological: General: No focal deficit present. Mental Status: She is alert and oriented to person, place, and time. Cranial Nerves: No cranial nerve deficit. Sensory: No sensory deficit. Motor: No weakness. Coordination: Coordination normal. Gait: Gait normal. Psychiatric: Mood and Affect: Mood normal. Behavior: Behavior normal. Thought Content: Thought content normal. Judgment: Judgment normal. Assessment and Plan ASSESSMENT/PLAN: 1. 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 Toe pain Related to ingrown toe nail Warm soapy soaks F/u with podiatry Madison Medina APRN.MALE INFERTILITY SPECIALIST documented in this encounter [facility] 03-05-2024 Note HNO ID: [id number] Author: ALAN RENE MD Service: ? Author Type: Physician Type: Progress Notes Filed: 03/05/2024 16:11 Note Text: [facility] [place] Tamy Vazquez is a 43 year old female here for a follow up with the [facility] Interstitial Lung Disease Team. HISTORY OF PRESENT ILLNESS: Patient is doing well-no exertional dyspnea REVIEW OF SYSTEMS: MRC Dyspnea Scale: 1. Not troubled by breathlessness except on strenuous exercise All others per history of present illness or otherwise negative on detailed 14 point review. 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 Endometriosis, site unspecified Endometriosis Esophageal reflux hx of low vitamin D recheck normal Hyperparathyroidism (HCC) 2015 parathyroidectomy Menorrhagia fibroids UFE Nephrolithiasis Osteoporosis 05/2022 with LOSS T-score -3.0 08/2022 nl urine calcium 260 Peripheral vascular disease (HCC) Personal history of unspecified urinary disorder PMH - PAST MEDICAL HISTORY OF 04/18/2005 blood clot internal jugular vein, 4 weeks diagnosed Protein S deficiency (HCC) 05/19/2002 cavernous sinus thrombosis 4 week Raynaud's syndrome CTD plaquenil Rib fracture 06/19/2014 Seasonal allergies Uterine fibroid s/p UFE PAST SURGICAL HISTORY Procedure Laterality Date EMBOLIZATION UTERINE FIBROID 03/18/2013 LAPAROSCOPIC APPENDECTOMY 03/30/2021 LAPS ABD PRTMANDOMENTUM DX W/WO SPEC BR/WA SPX 04/18/2004 Laparoscopy for endometriosis at [place] Dr Soliman at [facility], no control afterward, ++relief and + relief with surgery, laser PARATHYROIDECTOMY/EXPLORATION PARATHYROIDS 08/05/2014 PT ED ENDOCRINOLOGY 2016 RECLAST INJECTION for 1st one via endo 08/2022 SOCIAL HISTORY: Social History Tobacco Use Smoking status: Never Smokeless tobacco: Never Alcohol Use: Approximately 1.2 oz/week [which includes 2 Glasses of Wine (5oz) per week] (occasional) Drug Use: No FAMILY HISTORY Problem Relation Age of Onset other (hysterectomy) Mother Osteoporosis Mother Asthma Mother Hypertension Father Diabetes Father other (seasonal allergies) Brother No Known Problems Maternal Grandmother No Known Problems Maternal Grandfather No Known Problems Paternal Grandmother Heart Attack Paternal Grandfather ADD/ADHD Son ALLERGIES Allergen Reactions Amerigel [Zinc Acet* Daniel burning at area Cefdinir Other: See Comments Dizzy Flagyl [Metronidazo* Intolerance, GI Upset Nausea, fatigue, poor appetite CURRENT MEDICATIONS budesonide-formoterol (SYMBICORT) 160-4.5 mcg/actuation inhaler inhale 2 puffs by mouth twice a day - RINSE MOUTH WITH WATER AFT... (REFER TO PRESCRIPTION NOTES). mycophenolate sodium DR (MYFORTIC) 360 mg TbEC Take 1 tablet by mouth once daily. DHEA vaginal suppository 13 mg (CPD) Unwrap and insert 1 suppository vaginally at bedtime. Refrigerate remainder of package. Cholecalciferol, Vitamin D3, (VITAMIN D) 25 mcg (1,000 unit) cap Take 2 capsules by mouth once daily. ketoconazole (NIZORAL) 2 % shampoo Ketoconazole 2 % External Shampoo WASH THE SCALP DAILY - LATHER - LEAVE ON FOR 3-5 MINUTES, THEN RINSE Quantity: 120 Refills: 0 Ordered: 29-Jul-2020 DO Start : 14-Jan-2020 Complete Spirometers and Accessories gary 1 Device four times daily. warfarin (COUMADIN) 1 mg tablet take 2 AND 1/2 tablets by mouth once daily (Patient taking differently: Take 2 mg by mouth once daily.) warfarin (COUMADIN) 2 mg tablet Take 1.5 tablets by mouth daily as directed. montelukast (SINGULAIR) 10 mg tablet Take 10 mg by mouth daily at bedtime. fexofenadine HCl (ERNESTINE ORAL) Take by mouth as needed. calcium citrate/vitamin D3 (CALCIUM CITRATE + D ORAL) Take 1 tablet by mouth once daily. Doxycycline Monohydrate 40 mg capsule Take 40 mg by mouth once daily. hydrOXYchloroQUINE (PLAQUENIL) 200 mg tablet Take 200 mg by mouth once daily. 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 September 2020-cbc and hepatic wnl Pulmonary Function Data PFT available: Yes. PFT results Outside hospital-mar 2020 fvc-50%-1.85liters fev1-51% dlco -61%. pfts-november 2020 fvc-1.98 liters (53%)-dlco 49% pfts-may 2021 fvc-2.04 liters--65% dlco-55% PFT--September 2021-- fvc-1.73 liters-47% dlco-43% PFT--Augus (more content not included)... [facility] 03-05-2024 History of Present illness Narrative Images from the original note were not included. [facility] [place] Tamy Vazquez is a 43 year old female here for a follow up with the [facility] Interstitial Lung Disease Team. HISTORY OF PRESENT ILLNESS: Patient is doing well-no exertional dyspnea REVIEW OF SYSTEMS: MRC Dyspnea Scale: 1. Not troubled by breathlessness except on strenuous exercise All others per history of present illness or otherwise negative on detailed 14 point review. 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 Endometriosis, site unspecified Endometriosis Esophageal reflux hx of low vitamin D recheck normal Hyperparathyroidism (HCC) 2015 parathyroidectomy Menorrhagia fibroids UFE Nephrolithiasis Osteoporosis 05/2022 with LOSS T-score -3.0 08/2022 nl urine calcium 260 Peripheral vascular disease (HCC) Personal history of unspecified urinary disorder PMH - PAST MEDICAL HISTORY OF 04/18/2005 blood clot internal jugular vein, 4 weeks diagnosed Protein S deficiency (HCC) 05/19/2002 cavernous sinus thrombosis 4 week Raynaud's syndrome CTD plaquenil Rib fracture 06/19/2014 Seasonal allergies Uterine fibroid s/p UFE PAST SURGICAL HISTORY Procedure Laterality Date EMBOLIZATION UTERINE FIBROID 03/18/2013 LAPAROSCOPIC APPENDECTOMY 03/30/2021 LAPS ABD PRTM&OMENTUM DX W/WO SPEC BR/WA SPX 04/18/2004 Laparoscopy for endometriosis at [place] Dr Soliman at [facility], no control afterward, ++relief and + relief with surgery, laser PARATHYROIDECTOMY/EXPLORATION PARATHYROIDS 08/05/2014 PT ED ENDOCRINOLOGY 2016 RECLAST INJECTION for 1st one via endo 08/2022 SOCIAL HISTORY: Social History Tobacco Use Smoking status: Never Smokeless tobacco: Never Alcohol Use: Approximately 1.2 oz/week [which includes 2 Glasses of Wine (5oz) per week] (occasional) Drug Use: No FAMILY HISTORY Problem Relation Age of Onset other (hysterectomy) Mother Osteoporosis Mother Asthma Mother Hypertension Father Diabetes Father other (seasonal allergies) Brother No Known Problems Maternal Grandmother No Known Problems Maternal Grandfather No Known Problems Paternal Grandmother Heart Attack Paternal Grandfather ADD/ADHD Son ALLERGIES Allergen Reactions Amerigel [Zinc Acet* Daniel burning at area Cefdinir Other: See Comments Dizzy Flagyl [Metronidazo* Intolerance, GI Upset Nausea, fatigue, poor appetite CURRENT MEDICATIONS budesonide-formoterol (SYMBICORT) 160-4.5 mcg/actuation inhaler inhale 2 puffs by mouth twice a day - RINSE MOUTH WITH WATER AFT... (REFER TO PRESCRIPTION NOTES). mycophenolate sodium DR (MYFORTIC) 360 mg TbEC Take 1 tablet by mouth once daily. DHEA vaginal suppository 13 mg (CPD) Unwrap and insert 1 suppository vaginally at bedtime. Refrigerate remainder of package. Cholecalciferol, Vitamin D3, (VITAMIN D) 25 mcg (1,000 unit) cap Take 2 capsules by mouth once daily. ketoconazole (NIZORAL) 2 % shampoo Ketoconazole 2 % External Shampoo WASH THE SCALP DAILY - LATHER - LEAVE ON FOR 3-5 MINUTES, THEN RINSE Quantity: 120 Refills: 0 Ordered: 29-Jul-2020 DO Start : 14-Jan-2020 Complete Spirometers and Accessories gary 1 Device four times daily. warfarin (COUMADIN) 1 mg tablet take 2 & 1/2 tablets by mouth once daily (Patient taking differently: Take 2 mg by mouth once daily.) warfarin (COUMADIN) 2 mg tablet Take 1.5 tablets by mouth daily as directed. montelukast (SINGULAIR) 10 mg tablet Take 10 mg by mouth daily at bedtime. fexofenadine HCl (ERNESTINE ORAL) Take by mouth as needed. calcium citrate/vitamin D3 (CALCIUM CITRATE + D ORAL) Take 1 tablet by mouth once daily. Doxycycline Monohydrate 40 mg capsule Take 40 mg by mouth once daily. hydrOXYchloroQUINE (PLAQUENIL) 200 mg tablet Take 200 mg by mouth once daily. 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 Prather in [phone]) in April 2020 Discussed again November 2022--changing of meds from imuran to low dose mycophenylate Has pat diagnsoed with MCTD with [place] scleroderma features Gabriel 1:1280 positve ladle mechanic ab Cbc and hepatic panel wnl-apr 2021 Cbc--august 2021--wnl Cbc/lft--02/2023--wnl Lft and cbc--august 2023--wnl Laboratory Data Laboratory data reviewed in [facility] Everywhere. September 2020-cbc and hepatic wnl Pulmonary Function Data PFT available: Yes. PFT results Outside hospital-mar 2020 fvc-50%-1.85liters fev1-51% dlco -61%. pfts-november 2020 fvc-1.98 liters (53%)-dlco 49% pfts-may 2021 fvc-2.04 liters--65% dlco-55% PFT--September 2021-- fvc-1.73 liters-47% dlco-43% PFT--November 2021- Fvc-1.99 (54%) Dlco--45% PFT--fvc--1.95--58% Dlco--46%--may 2022 PFT-November 2022 Fev1 50%' fvc-48%--1,64 liters Dlco-42% PFT mar 2023- FVC 1.73 liters-52% Dlco-54% PFT-August 2023--fvc--1.91 liters--58% Dlco-53% PFT-Feb 2024 Fvc-1.81 liters-55% Dlco-53% Six minute walk Six minute walk available: No Radiology Is a CT scan available?: Standard CT available Reviewed by me-mar 2020--fibrotic disease predominantly bases--UIP type pattern Enlarged esophagus Ct -12/2022--stable htrct--ILD changes-UIP pattern Echocardiogram Was an echo performed?: yes May 2020--normal lv/rv-no evidence of pum htn Echo-2022--normal lv and rv function Heart Catheterization Was a right heart catheterization performed?: No ASSESSMENT Tamy Vazquez is a 43 year old female with ILD-MCTD--pulm functin remains stable PLAN Treating diagnosis: MCTD: Mixed connective tissue disease ILD medications at end of visit: Mycophenolate (Myfortic -180mg tid) Follow-up 6-6 months ILD CHECKLIST Was the patient discussed at a multidisciplinary discussion?: No Is the patient being treated with oxygen therapy?: No Does the patient have pulmonary hypertension: No suspicion Is the patient being referred for transplantation?: No Alan Rene MD IMP/PLAN .1ILD--MCTD--UIP pattern--on low dose myfortic 2.TPMT intermediate activity 3.CHAVES -stable 4.hiatal hernia--large--manometry 2020--evidence of decreased esophageal contractility--no gerd 5.MCTD--no evidence of pulm htn on most recent echo 2022 6.moderate restrictive disease-stable pfts PLAN 1.myfortic-delayed release mycophenylate--180mg tid 2.cbc and lft qmonth 3.possible escalation torituxan--symptoms and pfts however hannah vogel 4.fup 5-6-months 5.had repeat ct already in dec 2022--will need again in 2024 6.pfts in 5-6 months 7.received flu vaccine in office today I spent a total of 45 minutes on the date of the service which included preparing to see the patient, [id number] patient care, completing clinical documentation, obtaining and/or reviewing separately obtained history, performing a medically appropriate examination, counseling and educating the patient/family/caregiver, ordering medications, tests, or procedures, communicating with other HCPs (not separately reported), independently interpreting results (not separately reported), communicating results to the patient/family/caregiver, care coordination (not separately reported), and time excludes procedure . CC: documented in this encounter [facility] 03-05-2024 Note HNO ID: [id number] Author: ROSHNI JOHNSTON RRT Service: ? Author Type: Supervisor [employer] Type: Progress Notes Filed: 03/05/2024 15:09 Note Text: PULM FUNCTION: Provider: Alan Rene MD Spirometry: 1 DLCO: 1 [facility] 03-05-2024 History of Present illness Narrative PULM FUNCTION: Provider: Alan Rene MD Spirometry: 1 DLCO: 1 documented in this encounter [facility] 02-20-2024 Note MISC SCAN TEST RESUL TS 1: View results in Scanned Documents link when available TEST 1: URINALYSIS MACROSCOPIC REFERRAL LAB [facility] Comment on above: Performed By: #### M ICMIS ####NON-INTERFACED REF LABSCLIA SEE SC[facility] LABCLIA [id number] [place] [address] [place] 10-25-2023 Telephone encounter Note New order placed for Reclast. [facility] 10-25-2023 Miscellaneous Notes New order placed for Reclast. Pharmacist sent a referral request for an Rx for more Orders Pt is scheduled for a Reclast on 10/27/2023. Please add order to the CAM for additional injections. Daniel Li MA October 21, 2023 3:49 PM documented in this encounter [facility] 10-21-2023 Telephone encounter Note Pharmacist sent a referral request for an Rx for more Orders Pt is scheduled for a Reclast on 10/27/2023. Please add order to the CAM for additional injections. Daniel Li MA October 21, 2023 3:49 PM [facility] 10-21-2023 Telephone encounter Note [facility] 09-21-2023 History of Present illness Narrative Subjective Patient ID: Tamy Vazquez is a 43 y.o. female who presents for Annual Exam and Rash (1 week. Hands. Itching. Random bumps). Today she is accompanied by alone. HPI Review of Systems Objective BP 90/63 Pulse 94 Ht 1.619 m (5' 3.75) Wt 48.2 kg (106 lb 4 oz) LMP (LMP Unknown) SpO2 94% BMI 18.38 kg/m BSA: 1.47 meters squared Growth percentiles: Facility age limit for growth %lizzie is 20 years. Facility age limit for growth %lizzie is 20 years. Physical Exam Assessment/Plan Problem List Items Addressed This Visit ICD-10-CM Hypercoagulable state, secondary (Multi) D68.69 Vitamin D deficiency E55.9 Relevant Orders Vitamin D 25-Hydroxy,Total (for eval of Vitamin D levels) Hyperparathyroidism (Multi) E21.3 Relevant Orders TSH with reflex to Free T4 if abnormal Psoriatic arthritis (Multi) L40.50 Relevant Medications clobetasol (Temovate) 0.05 % ointment Bronchiectasis with acute exacerbation (Multi) J47.1 Encounter for annual general medical examination without abnormal findings in adult - Primary Z00.00 Relevant Orders Lipid Panel CBC and Auto Differential Comprehensive Metabolic Panel Hepatitis C Antibody HIV 1/2 Antigen/Antibody Screen with Reflex to Confirmation Vitamin B 12 deficiency E53.8 Relevant Orders Vitamin B12 Coated tongue K14.3 Other Visit Diagnoses Codes Screening for multiple conditions Z13.89 Hyperglycemia R73.9 Relevant Orders Hemoglobin A1C Encounter for screening mammogram for malignant neoplasm of breast Z12.31 Relevant Orders BI mammo bilateral screening tomosynthesis Current Outpatient Medications Medication Sig Dispense Refill albuterol 90 mcg/actuation inhaler Inhale 2 puffs every 4 hours if needed for shortness of breath. ALPRAZolam (Xanax) 0.5 mg tablet Take 1 tablet (0.5 mg) by mouth 3 times a day as needed for anxiety or sleep. 30 tablet 0 budesonide-formoteroL (Symbicort) 160-4.5 mcg/actuation inhaler Inhale 2 puffs 2 times a day. Rinse mouth with water after use to reduce aftertaste and incidence of candidiasis. Do not swallow. 10.2 g 1 doxycycline (Oracea) [address] capsule Take 1 capsule (40 mg) by mouth once daily in the morning. Do not crush or chew. Take with a full glass of water and do not lie down for at least 30 minutes after. esomeprazole (NexIUM) [address] capsule Take 1 capsule (40 mg) by mouth 2 times a day. Do not open capsule. hydrocortisone 2.5 % cream apply to THE UPPER LIP AND EYEBROWS twice a day for up to TWO WEEKS then DISCONTINUE hydroxychloroquine (Plaquenil) 200 mg tablet Take 1 tablet (200 mg) by mouth once daily. inhalational spacing device ([facility]) inhaler Use as instructed 1 each 0 montelukast (Singulair) 10 mg tablet take 1 tablet by mouth at bedtime 90 tablet 1 mycophenolate (Myfortic) 180 mg EC tablet Take 1 tablet (180 mg) by mouth 3 times a day. warfarin (Coumadin) 1 mg tablet TAKE ONE TABLET BY MOUTH ONCE DAILY 90 tablet 1 warfarin (Coumadin) 3 mg tablet Take 1 tablet (3 mg) by mouth once daily in the evening. 90 tablet 2 warfarin (Coumadin) 4 mg tablet Take 1 tablet (4 mg) by mouth. Take as directed per After Visit Summary. Winlevi 1 % cream Apply 1 Application topically once daily. clobetasol (Temovate) 0.05 % ointment Apply topically 2 times a day. 60 g 0 No current facility-administered medications for this visit. F/U in 6 months for coumadin f/u documented in this encounter [facility] [facility] Work Phone: 09-01-2023 Telephone encounter Note Labs from 08/30/2023 reviewed. Vitamin D level 35.8, stable. Calcium 9.3. BUN/creatinine normal, 11 and 0.76. PTH level was not done, canceled by lab? Prior PTH was 21 on 02/21/2023. Plan: To call patient, labs stable. Reclast infusion ordered; [facility] She can schedule at her convenience. [facility] 09-01-2023 Miscellaneous Notes Labs from 08/30/2023 reviewed. Vitamin D level 35.8, stable. Calcium 9.3. BUN/creatinine normal, 11 and 0.76. PTH level was not done, canceled by lab? Prior PTH was 21 on 02/21/2023. Plan: To call patient, labs stable. Reclast infusion ordered; [facility] She can schedule at her convenience. documented in this encounter [facility] 08-31-2023 History of Present illness Narrative PULM FUNCTION SMARTBLOCK: Provider: Alan Rene MD Spirometry: 1 DLCO: 1 documented in this encounter [facility] 08-31-2023 History of Present illness Narrative Images from the original note were not included. [facility] [place] Tamy Vazquez is a 43 year old female here for a follow up with the [facility] Interstitial Lung Disease Team. HISTORY OF PRESENT ILLNESS: Patient here for fup-no distress REVIEW OF SYSTEMS: MRC Dyspnea Scale: 1. Not troubled by breathlessness except on strenuous exercise All others per history of present illness or otherwise negative on detailed 14 point review. 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 Endometriosis, site unspecified Endometriosis Esophageal reflux hx of low vitamin D recheck normal Hyperparathyroidism ([facility]) 2015 parathyroidectomy Menorrhagia fibroids UFE Nephrolithiasis Osteoporosis 05/2022 with LOSS T-score -3.0 08/2022 nl urine calcium 260 Peripheral vascular disease (HCC) Personal history of unspecified urinary disorder PMH - PAST MEDICAL HISTORY OF 04/18/2005 blood clot internal jugular vein, 4 weeks diagnosed Protein S deficiency (HCC) 05/19/2002 cavernous sinus thrombosis 4 week Raynaud's syndrome CTD plaquenil Rib fracture 06/19/2014 Seasonal allergies Uterine fibroid s/p UFE PAST SURGICAL HISTORY Procedure Laterality Date EMBOLIZATION UTERINE FIBROID 03/18/2013 LAPAROSCOPIC APPENDECTOMY 03/30/2021 LAPS ABD PRTM&OMENTUM DX W/WO SPEC BR/WA SPX 04/18/2004 Laparoscopy for endometriosis at [place] Dr Soliman at [facility], no control afterward, ++relief and + relief with surgery, laser PARATHYROIDECTOMY/EXPLORATION PARATHYROIDS 08/05/2014 PT ED ENDOCRINOLOGY 2016 RECLAST INJECTION for 1st one via endo 08/2022 SOCIAL HISTORY: Social History Tobacco Use Smoking status: Never Smokeless tobacco: Never Alcohol Use: Approximately 1.2 oz/week [which includes 2 Glasses of Wine (5oz) per week] (occasional) Drug Use: No FAMILY HISTORY Problem Relation Age of Onset other (hysterectomy) Mother Osteoporosis Mother Asthma Mother Hypertension Father Diabetes Father other (seasonal allergies) Brother No Known Problems Maternal Grandmother No Known Problems Maternal Grandfather No Known Problems Paternal Grandmother Heart Attack Paternal Grandfather ADD/ADHD Son ALLERGIES Allergen Reactions Amerigel [Zinc Acet* Daniel burning at area Cefdinir Other: See Comments Dizzy Flagyl [Metronidazo* Intolerance, GI Upset Nausea, fatigue, poor appetite CURRENT MEDICATIONS budesonide-formoterol (SYMBICORT) 160-4.5 mcg/actuation inhaler inhale 2 puffs by mouth twice a day - RINSE MOUTH WITH WATER AFT... (REFER TO PRESCRIPTION NOTES). mycophenolate sodium DR (MYFORTIC) 360 mg TbEC Take 1 tablet by mouth once daily. DHEA vaginal suppository 13 mg (CPD) Unwrap and insert 1 suppository vaginally at bedtime. Refrigerate remainder of package. Cholecalciferol, Vitamin D3, (VITAMIN D) 25 mcg (1,000 unit) cap Take 2 capsules by mouth once daily. ketoconazole (NIZORAL) 2 % shampoo Ketoconazole 2 % External Shampoo WASH THE SCALP DAILY - LATHER - LEAVE ON FOR 3-5 MINUTES, THEN RINSE Quantity: 120 Refills: 0 Ordered: 29-Jul-2020 DO Start : 14-Jan-2020 Complete Spirometers and Accessories gary 1 Device four times daily. warfarin (COUMADIN) 1 mg tablet take 2 & 1/2 tablets by mouth once daily (Patient taking differently: Take 2 mg by mouth once daily.) warfarin (COUMADIN) 2 mg tablet Take 1.5 tablets by mouth daily as directed. montelukast (SINGULAIR) 10 mg tablet Take 10 mg by mouth daily at bedtime. fexofenadine HCl (ERNESTINE ORAL) Take by mouth as needed. calcium citrate/vitamin D3 (CALCIUM CITRATE + D ORAL) Take 1 tablet by mouth once daily. Doxycycline Monohydrate 40 mg capsule Take 40 mg by mouth once daily. hydrOXYchloroQUINE (PLAQUENIL) 200 mg tablet Take 200 mg by mouth once daily. 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 Prather in [phone]) in April 2020 Discussed again November 2022--changing of meds from imuran to low dose mycophenylate Has pat diagnsoed with MCTD with likley scleroderma features Gabriel 1:1280 positve ladle mechanic ab Cbc and hepatic panel wnl-apr 2021 Cbc--august 2021--wnl Cbc/lft--02/2023--wnl Lft and cbc--august 2023--wnl Laboratory Data Laboratory data reviewed in [facility] Everywhere. September 2020-cbc and hepatic wnl Pulmonary Function Data PFT available: Yes. PFT results Outside hospital-mar 2020 fvc-50%-1.85liters fev1-51% dlco -61%. pfts-november 2020 fvc-1.98 liters (53%)-dlco 49% pfts-may 2021 fvc-2.04 liters--65% dlco-55% PFT--September 2021-- fvc-1.73 liters-47% dlco-43% PFT--November 2021- Fvc-1.99 (54%) Dlco--45% PFT--fvc--1.95--58% Dlco--46%--may 2022 PFT-November 2022 Fev1 50%' fvc-48%--1,64 liters Dlco-42% PFT mar 2023- FVC 1.73 liters-52% Dlco-54% PFT-August 2023--fvc--1.91 liters--58% Dlco-53% Six minute walk Six minute walk available: No Radiology Is a CT scan available?: Standard CT available Reviewed by mi-mar 2020--fibrotic disease predominantly bases--UIP type pattern Enlarged esophagus Ct -12/2022--stable htrct--ILD changes-UIP pattern Echocardiogram Was an echo performed?: yes May 2020--normal lv/rv-no evidence of pum htn Echo-2022--normal lv and rv function Heart Catheterization Was a right heart catheterization performed?: No ASSESSMENT Tamy Vazquez is a 42 year old female with ILD-MCTD--stable pulm function PLAN Treating diagnosis: MCTD: Mixed connective tissue disease ILD medications at end of visit: myfortic 180mg tid Follow-up 4 months with pfts ILD CHECKLIST Was the patient discussed at a multidisciplinary discussion?: No Is the patient being treated with oxygen therapy?: No Does the patient have pulmonary hypertension: No suspicion Is the patient being referred for transplantation?: No IMP/PLAN 1.ILD--MCTD--UIP pattern--on low dose myfortic 2.TPMT intermediate activity 3.CHAVES -stable 4.hiatal hernia--large--manometry 2020--evidence of decreased esophageal contractility--no gerd 5.MCTD--no evidence of pulm htn on most recent echo 2022 6.moderate restrictive disease PLAN 1.myfortic-delayed release mycophenylate--180mg tid 2.cbc and lft qmonth 3.possible escalation to toci or rituxan if symptoms proogress-as of now is doing well 4.fup 6-months 5.had repeat ct already in dec 2022--will need again at some point mid to late 2023 6.pfts in 6 months I spent a total of 33 minutes on the date of the service which included preparing to see the patient, [id number] patient care, completing clinical documentation, obtaining and/or reviewing separately obtained history, performing a medically appropriate examination, counseling and educating the patient/family/caregiver, ordering medications, tests, or procedures, communicating with other HCPs (not separately reported), independently interpreting results (not separately reported), communicating results to the patient/family/caregiver, and care coordination (not separately reported). Alan Rene MD CC: documented in this encounter [facility] 08-17-2023 Telephone encounter Note We have been unable to reach your patient to schedule their testing. Test Name: FL esophagus barium swallow 1st Attempt: MyChart 2nd Attempt: tests done with [facility] 02/2023 118.23 no show//02.09.23 cx defer [facility] 08-17-2023 Miscellaneous Notes We have been unable to reach your patient to schedule their testing. Test Name: FL esophagus barium swallow 1st Attempt: MyChart 2nd Attempt: tests done with [facility] 02/2023.23 no show//02.09.23 cx defer documented in this encounter [facility] [employer] 08-16-2023 History of Present illness Narrative Endocrinology Virtual Visit This is a virtual visit using [employer] Zoom Video Visit. It required patient-provider interaction for the medical decision making as documented below. I have communicated my name and active licensure. The patient's identity and physical location were verified at the time of this visit. Either the patient or their legal primary care sales representative has been informed of the risks and benefits of -- and alternatives to -- treatment through a remote evaluation and consents to proceed with the evaluation remotely. Chief complaint: Osteoporosis, vitamin D deficiency HPI: Tamy Vazquez is a 43 year old year old female who is seen today for a 8-month follow-up for osteoporosis and vitamin D deficiency. She initially started following with me since 2013 for hyperparathyroidism; she was seen from [id number]. Then she started following with me for osteoporosis in December 2017. She was not seen by me in 2018 and 2019, then seen on 07/16/2020. -She was last seen in office in person on 06/16/2022 for a 2-year follow-up appointment; then she had a virtual appointment on 12/16/2022. Below is pertinent historical data that will be updated during this visit to reflect the patients current status. Osteoporosis: Then she was seen in my office in December 2017 for osteoporosis. She had been on low-dose steroids for mixed connective tissue disorder but has been off steroids. She had osteoporosis but her bone density had improved. She was started on calcium citrate plus vitamin D 2 tablets twice a day her vitamin D level was 50.8 with a PTH level of 17. -Patient was prescribed Actonel 150 mg once a month in December 2017. Patient took 2 doses only; she had severe intolerance with chest tightness with Actonel and medication was discontinued. -Then she was seen by me on 07/16/2020 for osteoporosis. At that time, labs were reviewed and PTH level and vitamin D level were ordered. She had not been taking enough calcium and she was recommended to take calcium citrate plus D 3 pills a day and 2 servings of dairy products daily in diet. -Treatment with Prolia versus date last was discussed with patient. She decided to take Reclast and she had first infusion on 08/25/2022. She tolerated it very well. -At her last appointment in November 2022, she was taking calcium carbonate 500 mg calcium and 500 mg vitamin D 1-2 daily. She was also taking multivitamin and vitamin D 2000 IUs daily. - Patient had been compliant with her calcium, multivitamin and vitamin D. She had symptoms of reflux and she stopped taking calcium carbonate with vitamin D earlier in 2023. Now, she is taking Tums ultra with 400 mg of calcium, 2 to 4 tablets daily. -She lost about 13 to 14 pounds weight in January and February 2023. Mainly due to stress and eating poorly. Now, she is eating better, her reflux is under control and she still not gaining weight. -She has not been doing any regular exercise.. Vitamin D deficiency: Vitamin D level has been stable on multivitamin with 800 units of vitamin D, vitamin D gelcap 2000 IUs daily and calcium carbonate with vitamin D 1-2 a day. For the last about 4 months, she has stopped taking calcium carbonate with vitamin D and she is taking Tums 2-4 daily. Hx Hyperparathyroidism: She was initially referred to me in June 2013 for hyperparathyroidism. At that time, she had normal calcium level of 9.9 with a high PTH level of 91 and 77. She had severe vitamin D deficiency with a vitamin D level of 11.4 in April 2013. She was thought to have secondary hyperparathyroidism. She was given vitamin D and calcium. PTH level was 58 with a fasting calcium of 10.3 in June 2014. Patient also developed kidney stones in June 2014. Her parathyroid scan was negative. She was referred for parathyroid surgery and parathyroid adenoma removal on 08/05/2014. PTH level dropped after surgery. -PTH level has remained stable over the years. Connective tissue disorder: Patient has mixed connective tissue disorder. She is on Plaquenil. Follows with squad boss regularly. - She also has interstitial lung disease and she was started on Imuran in 2021. Imuran was stopped and now she is on mycophenolate. She is not on any steroids. HISTORY REVIEWED (electronic chart updated): 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 Endometriosis, site unspecified Endometriosis Esophageal reflux hx of low vitamin D recheck normal Hyperparathyroidism (HCC) 2014 parathyroidectomy Menorrhagia fibroids UFE Nephrolithiasis Osteoporosis 05/2022 with LOSS T-score -3.0 08/2022 nl urine calcium 260 Peripheral vascular disease (HCC) Personal history of unspecified urinary disorder PMH - PAST MEDICAL HISTORY OF 04/18/2005 blood clot internal jugular vein, 4 weeks diagnosed Protein S deficiency (HCC) 05/19/2002 cavernous sinus thrombosis 4 week Raynaud's syndrome CTD plaquenil Rib fracture 06/19/2014 Seasonal allergies Uterine fibroid s/p UFE PAST SURGICAL HISTORY Procedure Laterality Date EMBOLIZATION UTERINE FIBROID 03/18/2013 LAPAROSCOPIC APPENDECTOMY 03/30/2021 LAPS ABD PRTM&OMENTUM DX W/WO SPEC BR/WA SPX 04/18/2004 Laparoscopy for endometriosis at [place] Dr Soliman at [facility], no control afterward, ++relief and + relief with surgery, laser PARATHYROIDECTOMY/EXPLORATION PARATHYROIDS 08/05/2014 PT ED ENDOCRINOLOGY 2016 RECLAST INJECTION for 1st one via endo 08/2022 FAMILY HISTORY Problem Relation Age of Onset other (hysterectomy) Mother Osteoporosis Mother Asthma Mother Hypertension Father Diabetes Father other (seasonal allergies) Brother No Known Problems Maternal Grandmother No Known Problems Maternal Grandfather No Known Problems Paternal Grandmother Heart Attack Paternal Grandfather ADD/ADHD Son Social History Tobacco Use Smoking status: Never Smokeless tobacco: Never Vaping Use Vaping Use: Never used Substance Use Topics Alcohol use: Yes Alcohol/week: 2.0 standard drinks of alcohol Types: 2 Glasses of Wine (5oz) per week Comment: occasional Drug use: No Current Outpatient Medications Medication Sig budesonide-formoterol (SYMBICORT) 160-4.5 mcg/actuation inhaler inhale 2 puffs by mouth twice a day - RINSE MOUTH WITH WATER AFT... (REFER TO PRESCRIPTION NOTES). mycophenolate sodium DR (MYFORTIC) 360 mg TbEC Take 1 tablet by mouth once daily. DHEA vaginal suppository 13 mg (CPD) Unwrap and insert 1 suppository vaginally at bedtime. Refrigerate remainder of package. Cholecalciferol, Vitamin D3, (VITAMIN D) 25 mcg (1,000 unit) cap Take 2 capsules by mouth once daily. ketoconazole (NIZORAL) 2 % shampoo Ketoconazole 2 % External Shampoo WASH THE SCALP DAILY - LATHER - LEAVE ON FOR 3-5 MINUTES, THEN RINSE Quantity: 120 Refills: 0 Ordered: 29-Jul-2020 DO Start : 14-Jan-2020 Complete Spirometers and Accessories gary 1 Device four times daily. warfarin (COUMADIN) 1 mg tablet take 2 & 1/2 tablets by mouth once daily (Patient taking differently: Take 2 mg by mouth once daily.) warfarin (COUMADIN) 2 mg tablet Take 1.5 tablets by mouth daily as directed. montelukast (SINGULAIR) 10 mg tablet Take 10 mg by mouth daily at bedtime. fexofenadine HCl (ERNESTINE ORAL) Take by mouth as needed. calcium citrate/vitamin D3 (CALCIUM CITRATE + D ORAL) Take 1 tablet by mouth once daily. Doxycycline Monohydrate 40 mg capsule Take 40 mg by mouth once daily. hydrOXYchloroQUINE (PLAQUENIL) 200 mg tablet Take 200 mg by mouth once daily. No current facility-administered medications for this visit. ALLERGIES Allergen Reactions Amerigel [Zinc Acet* Daniel burning at area Cefdinir Other: See Comments Dizzy Flagyl [Metronidazo* Intolerance, GI Upset Nausea, fatigue, poor appetite REVIEW OF SYSTEM: Symptoms of heartburn, controlled with Nexium twice a day and Tums. No nausea. Had weight loss, no weight loss now but unable to gain weight. Aches and pains due to connective tissue disorder, controlled with medication. PHYSICAL EXAMINATION: VIDEO EXAM: (if completed, performed via video enabled technology) Well-appearing, no distress. Alert, oriented. Glucose (mg/dL) Date Value 06/16/2022 85 03/20/2021 66 Potassium (mmol/L) Date Value 06/16/2022 4.1 03/20/2021 4.1 Sodium (mmol/L) Date Value 06/16/2022 136 03/20/2021 138 Chloride (mmol/L) Date Value 06/16/2022 101 03/20/2021 99 CO2 (mmol/L) Date Value 06/16/2022 25 03/20/2021 27 Creatinine (mg/dL) Date Value 07/26/2023 0.68 03/20/2021 Unable to assay. No specimen received. 03/20/2021 0.72 BUN (mg/dL) Date Value 07/26/2023 11 03/20/2021 Unable to assay. No specimen received. 03/20/2021 13 Anion Gap (mmol/L) Date Value 06/16/2022 10 03/20/2021 12 Calcium (mg/dL) Date Value 03/20/2021 9.7 Calcium, Total (mg/dL) Date Value 06/16/2022 9.3 ASSESSMENT/PLAN: 1. Osteoporosis without current pathological fracture, unspecified osteoporosis type - ICD9: 733.00, ICD10: M81.0 (primary diagnosis) Etiology: 1. Hx primary hyperparathyroidism 2. Hx steroid use in past. 3. Calcium and Vitamin deficiency; inadequate calcium supplementation -She was initially diagnosed with Osteoporosis in May 2013 when she had hyperparathyroidism. She also had been on steroids off and on for mixed connective tissue disorder. Repeat bone density in 2014 showed worsening at femoral neck and no change in the spine bone density. - In November 2017, bone density showed some improvement in spine as well as left hip and femoral neck. She still had Osteoporosis and Actonel was prescribed. However, she could not tolerate Actonel. She only took 2 doses and had severe chest tightness, heartburn. -Patient did not have a bone density in 2020. She had interstitial lung disease and was following with her pulmonary physician. She did not take any oral steroids. - Bone density on May 31, 2022 showed worsening of bone density over hip and spine both. T score -1.8 left hip, -3.0 left femoral neck, -2.0 L1-L4 and -1.0 left forearm. -Treatment plan was discussed with patient in detail. Discussed the options of oral Fosamax or Actonel versus Reclast IV infusion. Patient has GERD as well as esophageal dysmotility and she had severe intolerance to Actonel in the past. Hence, I did not recommend oral Actonel/fosamax. -She decided to take Reclast IV infusion. First dose was given on 08/25/2022. -Reclast due on or after 08/26/2023. Check labs now and then order Reclast infusion. -Diet reviewed; take at least 2 dairy products/day (yogurt/cheese), can't tolerate milk. -Continue vitamin D 2000 IUs daily. Continue multivitamin (100 mg calcium/800 units vitamin D). Continue Tums Ultra at least 2 a day, with 400 mg of calcium. -Exercises encouraged, light weightbearing and low impact aerobics. - BASIC METABOLIC PANEL - VITAMIN D 25 HYDROXY - PTH INTACT 2. Vitamin D deficiency - ICD9: 268.9, ICD10: E55.9 - Vitamin D level was 32.8 in December 2017. Vitamin D ordered in 2020; not done. -Vitamin D 54.2 on 06/17/2022, 55.2 on 08/04/2022, 41.1 on 02/21/2023. -Patient is on vitamin D D3 2000 IU gelcap daily and multivitamin with 800 units of vitamin D daily. - She was taking calcium carbonate with 500 mg vitamin D 1-2 a day; earlier this year, she stopped the calcium carbonate with D and she is taking Tums 2-4 a day. -Continue current treatment. -Will check vitamin D level now, it may have dropped since she stopped taking calcium with D. - BASIC METABOLIC PANEL - VITAMIN D 25 HYDROXY - PTH INTACT 3. History of parathyroid surgery - ICD9: V45.89, ICD10: Z98.890 - Diagnosed with hyperparathyroidism in 2013. At that time, initially she had normal calcium and very low vitamin D. After vitamin D replacement, PTH went down to 58 only and calcium started to go high. Parathyroid scan was negative. She had parathyroid exploration and parathyroid adenoma removal in July 2014. PTH level was 17 in 2014 after surgery when it was 39 in 2018. Calcium has been normal. 4. Weight loss, patient lost weight in January and February 2023 with decreased p.o. intake, stress and GERD. Unable to gain weight. Recommended to take protein shakes. Follow-up: To call after labs, then decide Labs ordered: BMP, PTH, vitamin D now, to call after labs are back. I spent a total of 40 minutes on the date of the service which included preparing to see the patient, [id number] patient care, completing clinical documentation, counseling and educating the patient/family/caregiver, and ordering medications, tests, or procedures Lora Rodrigues MD documented in this encounter [facility] 07-29-2023 Miscellaneous Notes Tried to call pt and the vm was full so I could not leave a message. Sent response via nasir [email or web address] carver Will see on August 08 at 1 PM. Spoke with patient and she can only come in on Mona [email or web address] carver Reviewed the message. Patient was last seen for [facility] appointment on 12/16/2022. Plan: Schedule follow-up appointment. Will order labs and then order Reclast after labs reviewed. -Can offer appointment on 08/03/2023 at 9:20 AM. documented in this encounter [facility] 03-30-2023 History of Present illness Narrative PULM FUNCTION SMARTBLOCK: Provider: Alan Rene MD Assisting Tech: Siobhan Cummins CRT Spirometry: 1 DLCO: 1 documented in this encounter [facility] 03-30-2023 History of Present illness Narrative Images from the original note were not included. [facility] [place] Tamy Vazquez is a 42 year old female here for a follow up with the [facility] Interstitial Lung Disease Team. HISTORY OF PRESENT ILLNESS: Patient is here for fup. DId have some weight loss--is now with improved appettite Is on myfortic 180mg tid REVIEW OF SYSTEMS: MRC Dyspnea Scale: 1. Not troubled by breathlessness except on strenuous exercise All others per history of present illness or otherwise negative on detailed 14 point review. 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 Endometriosis, site unspecified Endometriosis Esophageal reflux hx of low vitamin D recheck normal Hyperparathyroidism (HCC) 2015 parathyroidectomy Menorrhagia fibroids UFE Nephrolithiasis Osteoporosis 05/2022 with LOSS T-score -3.0 08/2022 nl urine calcium 260 Peripheral vascular disease (HCC) Personal history of unspecified urinary disorder PMH - PAST MEDICAL HISTORY OF 04/18/2005 blood clot internal jugular vein, 4 weeks diagnosed Protein S deficiency (HCC) 05/19/2002 cavernous sinus thrombosis 4 week Raynaud's syndrome CTD plaquenil Rib fracture 06/19/2014 Seasonal allergies Uterine fibroid s/p UFE PAST SURGICAL HISTORY Procedure Laterality Date EMBOLIZATION UTERINE FIBROID 03/18/2013 LAPAROSCOPIC APPENDECTOMY 03/30/2021 LAPS ABD PRTM&OMENTUM DX W/WO SPEC BR/WA SPX 04/18/2004 Laparoscopy for endometriosis at [place] Dr Soliman at [facility], no control afterward, ++relief and + relief with surgery, laser PARATHYROIDECTOMY/EXPLORATION PARATHYROIDS 08/05/2014 PT ED ENDOCRINOLOGY 2016 RECLAST INJECTION for 1st one via endo 08/2022 SOCIAL HISTORY: Social History Tobacco Use Smoking status: Never Smokeless tobacco: Never Alcohol Use: Approximately 1.2 oz/week [which includes 2 Glasses of Wine (5oz) per week] (occasional) Drug Use: No FAMILY HISTORY Problem Relation Age of Onset other (hysterectomy) Mother Osteoporosis Mother Asthma Mother Hypertension Father Diabetes Father other (seasonal allergies) Brother No Known Problems Maternal Grandmother No Known Problems Maternal Grandfather No Known Problems Paternal Grandmother Heart Attack Paternal Grandfather ADD/ADHD Son ALLERGIES Allergen Reactions Amerigel [Zinc Acet* Daniel burning at area Cefdinir Other: See Comments Dizzy Flagyl [Metronidazo* Intolerance, GI Upset Nausea, fatigue, poor appetite CURRENT MEDICATIONS pantoprazole DR (PROTONIX) 40 mg tablet take 1 tablet by mouth twice a day before meals DO NOT CRUSH OR CHEW budesonide-formoterol (SYMBICORT) 160-4.5 mcg/actuation inhaler inhale 2 puffs by mouth twice a day - RINSE MOUTH WITH WATER AFT... (REFER TO PRESCRIPTION NOTES). mycophenolate sodium DR (MYFORTIC) 360 mg TbEC Take 1 tablet by mouth once daily. DHEA vaginal suppository 13 mg (CPD) Unwrap and insert 1 suppository vaginally at bedtime. Refrigerate remainder of package. Cholecalciferol, Vitamin D3, (VITAMIN D) 25 mcg (1,000 unit) cap Take 2 capsules by mouth once daily. ketoconazole (NIZORAL) 2 % shampoo Ketoconazole 2 % External Shampoo WASH THE SCALP DAILY - LATHER - LEAVE ON FOR 3-5 MINUTES, THEN RINSE Quantity: 120 Refills: 0 Ordered: 29-Jul-2020 DO Start : 14-Jan-2020 Complete Spirometers and Accessories gary 1 Device four times daily. warfarin (COUMADIN) 1 mg tablet take 2 & 1/2 tablets by mouth once daily (Patient taking differently: Take 2 mg by mouth once daily.) warfarin (COUMADIN) 2 mg tablet Take 1.5 tablets by mouth daily as directed. (Patient not taking: Reported on 03/18/2023) montelukast (SINGULAIR) 10 mg tablet Take 10 mg by mouth daily at bedtime. fexofenadine HCl (ERNESTINE ORAL) Take by mouth as needed. Omeprazole 20 mg TbEC Take 1 tablet by mouth twice daily. (Patient not taking: Reported on 03/18/2023) calcium citrate/vitamin D3 (CALCIUM CITRATE + D ORAL) Take 1 tablet by mouth once daily. Doxycycline Monohydrate 40 mg capsule Take 40 mg by mouth once daily. hydrOXYchloroQUINE (PLAQUENIL) 200 mg tablet Take 200 mg by mouth once daily. PHYSICAL EXAM: BP 89/62 Pulse 62 Resp 18 SpO2 98% LMP 03/23/2020 Pleasant Alert and oriented times three Rrr Lungs-clear bilaerally Abd-benign Neck supple Oropharynx clear DATA REVIEWED (independently reviewed by myself) 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 Prather in [phone]) in April 2020 Discussed again November 2022--changing of meds from imuran to low dose mycophenylate Has pat diagnsoed with MCTD with likley scleroderma features Gabriel 1:1280 positve ladle mechanic ab Cbc and hepatic panel wnl-apr 2021 Cbc--august 2021--wnl Cbc/lft--02/2023--wnl Laboratory Data Laboratory data reviewed in [facility] Everywhere. September 2020-cbc and hepatic wnl Pulmonary Function Data PFT available: Yes. PFT results Outside hospital-mar 2020 fvc-50%-1.85liters fev1-51% dlco -61%. pfts-november 2020 fvc-1.98 liters (53%)-dlco 49% pfts-may 2021 fvc-2.04 liters--65% dlco-55% PFT--September 2021-- fvc-1.73 liters-47% dlco-43% PFT--November 2021- Fvc-1.99 (54%) Dlco--45% PFT--fvc--1.95--58% Dlco--46%--may 2022 PFT-November 2022 Fev1 50%' fvc-48%--1,64 liters Dlco-42% PFT mar 2023- FVC 1.73 liters-52% Dlco-54% Six minute walk Six minute walk available: No Radiology Is a CT scan available?: Standard CT available Reviewed by mi-mar 2020--fibrotic disease predominantly bases--UIP type pattern Enlarged esophagus Ct -12/2022--stable htrct--ILD changes-UIP pattern Echocardiogram Was an echo performed?: yes May 2020--normal lv/rv-no evidence of pum htn Echo-2022--normal lv and rv function Heart Catheterization Was a right heart catheterization performed?: No ASSESSMENT Tamy Vazquez is a 42 year old female with ILD-MCTD--stable pulm function PLAN Treating diagnosis: MCTD: Mixed connective tissue disease ILD medications at end of visit: myfortic 180mg tid Follow-up 4 months with pfts ILD CHECKLIST Was the patient discussed at a multidisciplinary discussion?: No Is the patient being treated with oxygen therapy?: No Does the patient have pulmonary hypertension: No suspicion Is the patient being referred for transplantation?: No IMP/PLAN 1.ILD--MCTD--UIP pattetrn--on low dose mycopheymopate 2.TPMT intermediate activity 3.CHAVES -stable 4.hiatal hernia--large--manometry 2020--evidence of decreased esophageal contractility0--no gerd 5.MCTD--no evidence of pulm htn on most recent echo 2022 6.moderate restrictive disease PLAN 1.myfortic-delayed release mycophenylate--180mg tid 2.cbc and lft qmonth 3.possible escalation to toci or rituxan if symptoms proogress-as of now is doing well 4.fup 4-months 5.had repeat ct already in dec 2022--will need again at some point mid to late 2023 Alan Rene MD CC: documented in this encounter [facility] 03-21-2023 Miscellaneous Notes Pt notified of results and provider message. Erica Tavarez LPN Left message for patient to return call for results and recommendations.Kelli Monaco LPN \ No abnormal findings noted on x-ray. Orthopedic follow-up referral placed. Continue care plan as discussed. Ranjit Perera APRN.MALE INFERTILITY SPECIALIST documented in this encounter [facility] 02-23-2023 Miscellaneous Notes Done spoke with the patient.Patient verbalized understanding. Michelle Santoro LPN February 23, 2023 11:19 AM Labs done on 02/21/2023 reviewed. PTH level 21, normal. Vitamin D level 41, normal. Plan: To call patient. Both vitamin D level and PTH level normal. No changes in calcium and vitamin D supplement. documented in this encounter [facility] 02-22-2023 History of Present illness Narrative Episode Visit Count: 1 Start of Care Date: 02/22/23 Onset Date: 01/20/23 Patient Identified by Name and Date of : Yes [facility] MODIFIED BARIUM SWALLOW PLAN OF CARE: Impression: Evidence of: Functional oropharyngeal phases of swallow, without identified risk for aspiration An elevated risk for aspiration: No RECOMMENDATION: Diet Recommendations: Regular Consistency Thin Liquids IDDSI Level 0 Swallowing Precautions Recommendations: Sit upright 90 degrees for all PO Small Bite/Sip Feed / Eat at a slow rate [employer] Recommendations: Diet, Swallowing Precautions Results and Recommendations Discussed With: Patient Goals for Modified Barium Swallow: created for 02/22/2023 only. The patient will be able to demonstrate adequate return of knowledge of today's fluoroscopic assessment and recommendations to maximize overall safety with oral intake. (baseline = no knowledge). Goal met 02/22/2023 SUBJECTIVE: Tamy Vazquez is a 42 year old female seen today for a Modified Barium Swallow (MBS) Study. Ms Vazquez reports that she has frequent symptoms of GERD. Patient Goals: To evaluate the swallow OBJECTIVE: MEASURES WITH LEVEL OF FUNCTION: Swallow Position Of Patient During Assessment: Upright In Chair Compensatory Strategies Utilized During Assessment: Alert (patient should be fully alert for P.O. intake), Sit upright 90 degrees for all PO Instrumental Swallow Assessment Type: Modified Barium Swallow Study Modified Barium Swallow Views: Lateral position Barium Consistencies Provided: Thin Liquids, Mildly Thick Liquids (Neola Thick), Pureed Solids, Regular Solids Oral Phase: Lip Closure: No labial escape/anterior loss of bolus Tongue Control During Bolus Hold: Cohesive bolus between tongue to palatal seal Bolus Preparation/Mastication: Timely and efficient mastication skills Bolus Transport/Lingual Motion: Brisk tongue motion for A-P movement of the bolus Oral Residue: Trace residue lining oral structures Initiation Of Pharyngeal Swallow: Bolus head at posterior laryngeal surface of epiglottis Pharyngeal Phase: Soft Palate Elevation: No bolus between soft palate/pharyngeal wall Laryngeal Elevation: Complete superior movement of thyroid cartilage with contact of arytenoids to epiglottic petiole Anterior Hyoid Excursion: Complete anterior movement Epiglottic Movement: Complete inversion Laryngeal Vestibular Closure/Height of the Swallow: Complete - no air/contrast in laryngeal vestibule Pharyngeal Stripping Wave: Complete Pharyngoesophageal Segment Opening: Complete distension and complete duration/no obstruction of flow of bolus Tongue Base Retraction: No bolus between tongue base and posterior pharyngeal wall Pharyngeal Residue: Complete pharyngeal clearance Penetration-Aspiration Scale for MBSS: Level 1-Material does not enter airway : Thin Liquids IDDSI Level 0, Mildly Thick Liquids IDDSI Level 2 (Neola Thick), Pureed IDDSI Level 4, Regular Consistency Education: Education Learning Preferences: Explanation Barriers: None Learning/Educational Needs: Swallowing Skills Education Provided: Yes, see treatment interventions for education provided Education Provided To: Patient Education Mode/Type: Explanation/Discussion Response to Education/Teach Back: States/Identifies TREATMENT: Performed Modified Barium Swallowing Study (23438). Evaluation: Modified Barium Swallow Evaluation (96081) Education regarding findings from today's Modified Barium Swallowing study (fluoroscopic study) and suggested plans for treatment were provided to the patient through verbal / written instruction, images and/or demonstration. The patient was able to demonstrate understanding of education provided this date. Billing: Modified Barium Swallow ([id number]) Total time: 15 minutes Session Start Time : 1350 Session Stop Time : 1405 CB [place] documented in this encounter [facility] 01-07-2023 History of Present illness Narrative Radiology Service Progress Note PATIENT NAME: Tamy Vazquez DATE OF SERVICE: January 07, 2023 TIME: 3:15 PM PATIENT IDENTITY VERIFICATION COMPLETED USING TWO (2) IDENTIFIERS: Name and Date of confirmed by patient verbally. FALL SCREENING: Has the patient had 2 falls in the last year or 1 fall with injury or currently using an Ambulatory Assistive Device (Walker, Cane, Wheelchair, Crutches, etc.)? No PATIENT GENDER DATA: Female. status: : No status: NO. PATIENT RELEVANT IMPLANT DATA REVIEWED: Yes RADIOLOGY DEPARTMENT: CT; Exam(s) Completed: Chest PERIPHERAL IV DATA: Not applicable SIGNED BY: RT Opal(R) January 07, 2023 3:15 PM documented in this encounter [facility] 12-23-2022 History of Present illness Narrative Subjective Patient ID: Tamy Vazquez is a 42 y.o. female who presents for Sinusitis, URI (Still not feeling well), and Cough. Today she is accompanied by alone. Sinusitis Associated symptoms include coughing. URI Associated symptoms include coughing. Cough Finished Zithromax started in October 29. Has been sick since then was started on Augmentin 12/13/22 Due to wheezing sent in by her lead ramp service man Review of Systems Respiratory: Positive for cough. Objective Blood Pressure 108/76 (BP Location: Left arm, Patient Position: Sitting, BP Cuff Size: Adult) Pulse 83 Temperature 36.8 C (98.3 F) Respiration 16 Weight 52.2 kg (115 lb) Last Menstrual Period (LMP Unknown) Oxygen Saturation 97% Body Mass Index 20.37 kg/m BSA: 1.52 meters squared Growth percentiles: Facility age limit for growth %lizzie is 20 years. Facility age limit for growth %lizzie is 20 years. Physical Exam Vitals and nursing note reviewed. Constitutional: General: She is not in acute distress. Appearance: Normal appearance. She is normal weight. She is not ill-appearing. HENT: Head: Normocephalic. Right Ear: Tympanic membrane, ear canal and external ear normal. Left Ear: Tympanic membrane, ear canal and external ear normal. Nose: Nose normal. No rhinorrhea. Mouth/Throat: Mouth: Mucous membranes are moist. Pharynx: Oropharynx is clear. Eyes: Extraocular Movements: Extraocular movements intact. Conjunctiva/sclera: Conjunctivae normal. Pupils: Pupils are equal, round, and reactive to light. Cardiovascular: Rate and Rhythm: Normal rate and regular rhythm. Pulses: Normal pulses. Heart sounds: Normal heart sounds. Pulmonary: Effort: Pulmonary effort is normal. No respiratory distress. Breath sounds: No stridor. Wheezing present. No rhonchi or rales. Chest: Chest wall: No tenderness. Abdominal: General: Abdomen is flat. Bowel sounds are normal. Palpations: Abdomen is soft. Tenderness: There is no abdominal tenderness. There is no guarding or rebound. Hernia: No hernia is present. Musculoskeletal: General: Normal range of motion. Cervical back: Normal range of motion and neck supple. No rigidity or tenderness. Right lower leg: No edema. Left lower leg: No edema. Lymphadenopathy: Cervical: No cervical adenopathy. Skin: General: Skin is warm and dry. Capillary Refill: Capillary refill takes more than 3 seconds. Neurological: General: No focal deficit present. Mental Status: She is alert and oriented to person, place, and time. Sensory: No sensory deficit. Motor: No weakness. Coordination: Coordination normal. Psychiatric: Mood and Affect: Mood normal. Behavior: Behavior normal. Thought Content: Thought content normal. Judgment: Judgment normal. Assessment/Plan Problem List Items Addressed This Visit None Visit Diagnoses Wheezing - Primary Relevant Medications budesonide-formoteroL (Symbicort) 160-4.5 mcg/actuation inhaler inhalational spacing device ([facility]) inhaler Other Relevant Orders XR chest 2 views SOB (shortness of breath) Relevant Medications inhalational spacing device ([employer] [facility]) inhaler Other Relevant Orders XR chest 2 views Start omeprazole 40 mg twice a day for 10 days Start Symbicort and use spacer Stat CXR today Finish antibiotics F/U in 1 week for wheezing documented in this encounter [facility] Work Phone: 12-23-2022 Instructions Tayo Rodirguez MD - 12/23/2022 11:00 AM EDT Start omeprazole 40 mg twice a day for 10 days Start Symbicort and use spacer Stat CXR today Finish antibiotics F/U in 1 week for wheezing documented in this encounter [facility] Work Phone: 12-23-2022 Miscellaneous Notes Patient was informed of results. documented in this encounter [facility] Work Phone: 12-23-2022 Progress note Formatting of t his note might be different from the original. Patient was informed of results. [facility] Work Phone: 12-16-2022 History of Present illness Narrative Endocrinology Virtual Visit This is a virtual visit using [employer] video visit. It required patient-provider interaction for the medical decision making as documented below. I have communicated my name and active licensure. The patient's identity and physical location were verified at the time of this visit. Either the patient or their legal primary care sales representative has been informed of the risks and benefits of -- and alternatives to -- treatment through a remote evaluation and consents to proceed with the evaluation remotely. Chief complaint: Osteoporosis, vitamin D deficiency Patient is unable to come to the office since she is having a upper respiratory tract infection. Tamy Vazquez is a 42 year old year old female seen for 6 months follow-up for osteoporosis and vitamin D deficiency. She has been following with me since 2013; she saw me till 2014 and then started seeing me again in December 2017. Her last appointment was on 06/16/2022. She had a relast IV infusion on 08/25/2022 Below is pertinent historical data that will be updated during this visit to reflect the patients current status. Hyperparathyroidism: She was initially referred to me in June 2013 for hyperparathyroidism. At that time, she had normal calcium level of 9.9 with a high PTH level of 91 and 77. She had severe vitamin D deficiency with a vitamin D level of 11.4 in April 2013. She was thought to have secondary hyperparathyroidism. She was given vitamin D and calcium. PTH level was 58 with a fasting calcium of 10.3 in June 2014. Patient also developed kidney stones in June 2014. Her parathyroid scan was negative. She was referred for parathyroid surgery and parathyroid adenoma removal on 08/05/2014. PTH level dropped after surgery. -PTH level has remained stable over the years. Osteoporosis: Then she was seen in my office in December 2017 for osteoporosis. She had been on low-dose steroids for mixed connective tissue disorder but has been off steroids. She had osteoporosis but her bone density had improved. She was started on calcium citrate plus vitamin D 2 tablets twice a day her vitamin D level was 50.8 with a PTH level of 17. -Patient was prescribed Actonel 150 mg once a month in December 2017. Patient took 2 doses only; she had severe intolerance with chest tightness with Actonel and medication was discontinued. -Then she was seen by me on 07/16/2020 for osteoporosis. At that time, labs were reviewed and PTH level and vitamin D level were ordered. She had not been taking enough calcium and she was recommended to take calcium citrate plus D 3 pills a day and at least 2 servings of dairy products daily in her diet. -Currently, patient is taking calcium carbonate chewable with vitamin D 600 mg a day, occasionally she takes 2 tablets a day. She is on vitamin D3 2000 IUs daily. -Diet reviewed; she tries to have 1-2 servings of dairy products every day. Patient has mixed connective tissue disorder. She is on Plaquenil. She also has interstitial lung disease and she was started on Imuran in 2021. Amiodarone has been stopped and now she is on mycophenolate. She is not on any steroids. HISTORY REVIEWED (electronic chart updated): 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 Endometriosis, site unspecified Endometriosis Esophageal reflux hx of low vitamin D recheck normal Hyperparathyroidism (HCC) 2014 parathyroidectomy Menorrhagia fibroids UFE Nephrolithiasis Osteoporosis 05/2022 with LOSS T-score -3.0 08/2022 nl urine calcium 260 Peripheral vascular disease (HCC) Personal history of unspecified urinary disorder PMH - PAST MEDICAL HISTORY OF 04/18/2005 blood clot internal jugular vein, 4 weeks diagnosed Protein S deficiency (HCC) 05/19/2002 cavernous sinus thrombosis 4 week Raynaud's syndrome CTD plaquenil Rib fracture 06/19/2014 Seasonal allergies Uterine fibroid s/p UFE PAST SURGICAL HISTORY Procedure Laterality Date EMBOLIZATION UTERINE FIBROID 03/18/2013 LAPAROSCOPIC APPENDECTOMY 03/30/2021 LAPS ABD PRTM&OMENTUM DX W/WO SPEC BR/WA SPX 04/18/2004 Laparoscopy for endometriosis at [place] [facility] at [facility], no control afterward, ++relief and + relief with surgery, laser PARATHYROIDECTOMY/EXPLORATION PARATHYROIDS 08/05/2014 PT ED ENDOCRINOLOGY 2016 RECLAST INJECTION for 1st one via endo 08/2022 FAMILY HISTORY Problem Relation Age of Onset other (hysterectomy) Mother Osteoporosis Mother Asthma Mother Hypertension Father Diabetes Father other (seasonal allergies) Brother No Known Problems Maternal Grandmother No Known Problems Maternal Grandfather No Known Problems Paternal Grandmother Heart Attack Paternal Grandfather ADD/ADHD Son Social History Tobacco Use Smoking status: Never Smokeless tobacco: Never Vaping Use Vaping Use: Never used Substance Use Topics Alcohol use: Yes Alcohol/week: 2.0 standard drinks of alcohol Types: 2 Glasses of Wine (5oz) per week Comment: occasional Drug use: No Current Outpatient Medications Medication Sig amoxicillin-clavulanic acid (AUGMENTIN) 875-125 mg per tablet Take 1 tablet by mouth every 12 hours for [address] (MYFORTIC) 360 mg TbEC Take 1 tablet by mouth once daily. DHEA vaginal suppository 13 mg (CPD) Unwrap and insert 1 suppository vaginally at bedtime. Refrigerate remainder of package. Cholecalciferol, Vitamin D3, (VITAMIN D) 25 mcg (1,000 unit) cap Take 2 capsules by mouth once daily. ketoconazole (NIZORAL) 2 % shampoo Ketoconazole 2 % External Shampoo WASH THE SCALP DAILY - LATHER - LEAVE ON FOR 3-5 MINUTES, THEN RINSE Quantity: 120 Refills: 0 Ordered: 29-Jul-2020 DO Start : 14-Jan-2020 Complete Spirometers and Accessories gary 1 Device four times daily. warfarin (COUMADIN) 1 mg tablet take 2 & 1/2 tablets by mouth once daily warfarin (COUMADIN) 2 mg tablet Take 1.5 tablets by mouth daily as directed. (Patient taking differently: Take 3 mg by mouth daily as directed. 4.5-5mgs daily) montelukast (SINGULAIR) 10 mg tablet Take 10 mg by mouth daily at bedtime. fexofenadine HCl (ERNESTINE ORAL) Take by mouth as needed. Omeprazole 20 mg TbEC Take 1 tablet by mouth twice daily. calcium citrate/vitamin D3 (CALCIUM CITRATE + D ORAL) Take 1 tablet by mouth once daily. Doxycycline Monohydrate 40 mg capsule Take 40 mg by mouth once daily. hydrOXYchloroQUINE (PLAQUENIL) 200 mg tablet Take 200 mg by mouth once daily. Current Facility-Administered Medications Medication Dose Route Frequency perflutren lipid microspheres 1.3 mL in NaCl (PF) 0.9% 10 mL injection (DEFINITY) INTRAVENOUS DIRECTED PRN sodium chloride 0.9 % (flush) 10 mL (BD POSIFLUSH) 10 mL INTRAVENOUS DIRECTED PRN perflutren lipid microspheres 1.3 mL in NaCl (PF) 0.9% 10 mL injection (DEFINITY) INTRAVENOUS DIRECTED PRN sodium chloride 0.9 % (flush) 10 mL (BD POSIFLUSH) 10 mL INTRAVENOUS DIRECTED PRN ALLERGIES Allergen Reactions Amerigel [Zinc Acet* Daniel burning at area Cefdinir Other: See Comments Dizzy Flagyl [Metronidazo* Intolerance, GI Upset Nausea, fatigue, poor appetite REVIEW OF SYSTEM: Review of Systems occasional aches and pains due to her connective tissue disorder; no nausea, no heartburn. No problems with constipation. PHYSICAL EXAMINATION: VIDEO EXAM: (if completed, performed via video enabled technology) Physical Exam patient appears well, alert, oriented, no distress. ASSESSMENT/PLAN: 1. Osteoporosis without current pathological fracture, unspecified osteoporosis type - ICD9: 733.00, ICD10: M81.0 (primary diagnosis) - Likely causes: 1. Hx primary hyperparathyroidism 2. Hx steroid use in past. 3. Calcium and Vitamin deficiency; inadequate calcium supplementation -She was initially diagnosed with Osteoporosis in May 2013 when she had hyperparathyroidism. She also had been on steroids off and on for mixed connective tissue disorder. Repeat bone density in 2014 showed worsening at femoral neck and no change in the spine bone density. - In November 2017, bone density showed some improvement in spine as well as left hip and femoral neck. She still had Osteoporosis and Actonel was prescribed. However, she could not tolerate Actonel. She only took 2 doses and had severe chest tightness, heartburn. -Patient did not have a bone density in 2020. She had interstitial lung disease and was following with her pulmonary physician. She did not take any oral steroids. - Bone density on May 31, 2022 showed worsening of bone density over hip and spine both. T score -1.8 left hip, -3.0 left femoral neck, -2.0 L1-L4 and -1.0 left forearm. -Treatment plan was discussed with patient in detail. Discussed the options of oral Fosamax or Actonel versus Reclast IV infusion. Patient has GERD as well as esophageal dysmotility and she had severe intolerance to Actonel in the past. Hence, I would not recommend against oral Actonel/fosamax. -She decided to take Reclast IV infusion. First dose was given on 08/25/2022. -Reclast will be due on or after 08/26/2023; patient to call in July 2023 to schedule. We will order labs prior to scheduling Reclast infusion. -Diet reviewed; take at least 2 dairy products/day (yogurt/cheese), can't tolerate milk. -Continue calcium carbonate chewables 600 mg plus vitamin D 1 a day. She can try taking 2 a day and watch for symptoms of constipation with higher dose of calcium carbonate. Continue vitamin D 2000 IUs daily. Continue multivitamin which contains 100 mg of calcium and 800 units of vitamin D. - VITAMIN D 25 HYDROXY - PTH INTACT BLD 2. Vitamin D deficiency - ICD9: 268.9, ICD10: E55.9 -Patient used to be taking vitamin D Gummies. Now, she is taking vitamin D 2000 IUs gelcap every day. Additionally, she is also on multivitamin with 800 IUs vitamin D. She is also on calcium carbonate 600 mg +500 IUs vitamin D 1-2 daily. -Vitamin D level was 54 on 06/17/2022. Vitamin D level was checked again on 08/04/2022 and it was 55. PTH level was 27 on 06/16/2022. - VITAMIN D 25 HYDROXY - PTH INTACT BLD 3. History of parathyroid surgery - ICD9: V45.89, ICD10: Z98.890 - Diagnosed with hyperparathyroidism in 2013. At that time, initially she had normal calcium and very low vitamin D. After vitamin D replacement, PTH went down to 58 only and calcium started to go high. Parathyroid scan was negative. She had parathyroid exploration and parathyroid adenoma removal in July 2014. PTH level was 17 in 2014 after surgery when it was 39 in 2018. Calcium has been normal. -On 06/16/2022, calcium 9.3 and PTH level was 27. - Some elements copied from my notes, which have been updated where appropriate, and all reflect current medical decision making from today, December 16, 2022 I spent a total of 40 minutes on the date of the service which included preparing to see the patient, [id number] patient care, completing clinical documentation, and ordering medications, tests, or procedures Lora Midha, MD documented in this encounter [facility] 12-13-2022 History of Present illness Narrative PULM FUNCTION SMARTBLOCK: Provider: Alan Rene MD Spirometry: 1 DLCO: 1 documented in this encounter [facility] 12-13-2022 History of Present illness Narrative Images from the original note were not included. [facility] [place] Tamy Vazquez is a 42 year old female here for a follow up with the [facility] Interstitial Lung Disease Team. HISTORY OF PRESENT ILLNESS: Patient is here as fupp- Recently stopped imuran--is on low dose mycophenalte-250mg REVIEW OF SYSTEMS: MRC Dyspnea Scale: 2. Short of breath when hurrying or walking up a slight hill All others per history of present illness or otherwise negative on detailed 14 point review. 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 Endometriosis, site unspecified Endometriosis Esophageal reflux hx of low vitamin D recheck normal Hyperparathyroidism (HCC) 2015 parathyroidectomy Menorrhagia fibroids UFE Nephrolithiasis Osteoporosis 05/2022 with LOSS T-score -3.0 08/2022 nl urine calcium 260 Peripheral vascular disease (HCC) Personal history of unspecified urinary disorder PMH - PAST MEDICAL HISTORY OF 04/18/2005 blood clot internal jugular vein, 4 weeks diagnosed Protein S deficiency (HCC) 05/19/2002 cavernous sinus thrombosis 4 week Raynaud's syndrome CTD plaquenil Rib fracture 06/19/2014 Seasonal allergies Uterine fibroid s/p UFE PAST SURGICAL HISTORY Procedure Laterality Date EMBOLIZATION UTERINE FIBROID 03/18/2013 LAPAROSCOPIC APPENDECTOMY 03/30/2021 LAPS ABD PRTM&OMENTUM DX W/WO SPEC BR/WA SPX 04/18/2004 Laparoscopy for endometriosis at [place] Dr [facility]iman at [facility], no control afterward, ++relief and + relief with surgery, laser PARATHYROIDECTOMY/EXPLORATION PARATHYROIDS 08/05/2014 PT ED ENDOCRINOLOGY 2016 RECLAST INJECTION for 1st one via endo 08/2022 SOCIAL HISTORY: Social History Tobacco Use Smoking status: Never Smokeless tobacco: Never Alcohol Use: Approximately 1.2 oz/week [which includes 2 Glasses of Wine (5oz) per week] (occasional) Drug Use: No FAMILY HISTORY Problem Relation Age of Onset other (hysterectomy) Mother Osteoporosis Mother Asthma Mother Hypertension Father Diabetes Father other (seasonal allergies) Brother No Known Problems Maternal Grandmother No Known Problems Maternal Grandfather No Known Problems Paternal Grandmother Heart Attack Paternal Grandfather ADD/ADHD Son ALLERGIES Allergen Reactions Amerigel [Zinc Acet* Daniel burning at area Cefdinir Other: See Comments Dizzy Flagyl [Metronidazo* Intolerance, GI Upset Nausea, fatigue, poor appetite CURRENT MEDICATIONS Cholecalciferol, Vitamin D3, 125 mcg (5,000 unit) cap^Take 1 capsule by mouth once daily. one po daily w K2^Disp: 90 capsule^Rfl: 4 DHEA vaginal suppository 13 mg (CPD)^Unwrap and insert 1 suppository vaginally at bedtime. Refrigerate remainder of package.^Disp: 90 Suppository^Rfl: 3 estradiol (CLIMARA) 0.025 mg/24 hr^Apply 1 Patch as directed one time a week.^Disp: 12.85 Patch^Rfl: 4 Cholecalciferol, Vitamin D3, (VITAMIN D) 25 mcg (1,000 unit) cap^Take 2 capsules by mouth once daily.^Disp: 1 capsule^Rfl: 0 WINLEVI 1 % crea^APPLY A THIN LAYER TO THE FACE TWICE A DAY^Disp: ^Rfl: lansoprazole (PREVACID) 30 mg capsule^Take by mouth.^Disp: ^Rfl: ketoconazole (NIZORAL) 2 % shampoo^Ketoconazole 2 % External Shampoo WASH THE SCALP DAILY - LATHER - LEAVE ON FOR 3-5 MINUTES, THEN RINSE Quantity: 120 Refills: 0 Ordered: 29-Jul-2020 DO Start : 14-Jan-2020 Complete^Disp: ^Rfl: Spirometers and Accessories gary^1 Device four times daily.^Disp: 1 Each^Rfl: 0 warfarin (COUMADIN) 1 mg tablet^take 2 & 1/2 tablets by mouth once daily^Disp: 90 tablet^Rfl: 3 warfarin (COUMADIN) 2 mg tablet^Take 1.5 tablets by mouth daily as directed.^Disp: 60 tablet^Rfl: 3 (Patient taking differently: Take 3 mg by mouth daily as directed. 4.5-5mgs daily) montelukast (SINGULAIR) 10 mg tablet^Take 10 mg by mouth daily at bedtime. ^Disp: ^Rfl: Omeprazole 20 mg TbEC^Take 1 tablet by mouth twice daily.^Disp: ^Rfl: calcium citrate/vitamin D3 (CALCIUM CITRATE + D ORAL)^Take 1 tablet by mouth once daily.^Disp: ^Rfl: Doxycycline Monohydrate 40 mg capsule^Take 40 mg by mouth once daily.^Disp: ^Rfl: hydrOXYchloroQUINE (PLAQUENIL) 200 mg tablet^Take 200 mg by mouth once daily. ^Disp: ^Rfl: mycophenolate Mofetil (CELLCEPT) 500 mg tablet^Take 1 tablet by mouth once daily.^Disp: 30 tablet^Rfl: 11 amoxicillin-clavulanic acid (AUGMENTIN) 875-125 mg per tablet^Take 1 tablet by mouth every 12 hours for 10 days.^Disp: 20 tablet^Rfl: [address] (MYFORTIC) 360 mg TbEC^Take 1 tablet by mouth once daily.^Disp: 30 tablet^Rfl: 11 progesterone micronized (PROMETRIUM) 200 mg capsule^Take 1 capsule by mouth daily at bedtime. with bite of food days 1-12 of calendar month^Disp: 36 capsule^Rfl: 3 (Patient not taking: Reported on 12/13/2022) fexofenadine HCl (ERNESTINE ORAL)^Take by mouth as needed. 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 Parther in [phone]) in April 2020 Discussed again November 2022--changing of meds from imuran to low dose mycophenylate Has pat diagnsoed with MCTD with likley scleroderma features Gabriel 1:1280 positve ladle mechanic ab Cbc and hepatic panel wnl-apr 2021 Cbc--august 2021--wnl Laboratory Data Laboratory data reviewed in [facility] Everywhere. September 2020-cbc and hepatic wnl Pulmonary Function Data PFT available: Yes. PFT results Outside hospital-mar 2020 fvc-50%-1.85liters fev1-51% dlco -61%. pfts-november 2020 fvc-1.98 liters (53%)-dlco 49% pfts-may 2021 fvc-2.04 liters--65% dlco-55% PFT--September 2021-- fvc-1.73 liters-47% dlco-43% PFT--November 2021- Fvc-1.99 (54%) Dlco--45% PFT--fvc--1.95--58% Dlco--46%--may 2022 PFT-November 2022 Fev1 50%' fvc-48%--1,64 liters Dlco-42% Six minute walk Six minute walk available: No Radiology Is a CT scan available?: Standard CT available Reviewed by mi-mar 2020--fibrotic disease predominantly bases--UIP type pattern Enlarged esophagus Ct -01/2023--stable htrct--ILD changes-UIP pattern Echocardiogram Was an echo performed?: yes May 2020--normal lv/rv-no evidence of pum htn Echo-2022--normal lv and rv function Heart Catheterization Was a right heart catheterization performed?: No ASSESSMENT Tamy Vazquez is a 42 year old female with 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 PLAN Treating diagnosis: ILD--MCTD ILD medications at end of visit: Mycophenolate Follow-up 4-6 months ILD CHECKLIST Was the patient discussed at a multidisciplinary discussion?: No Is the patient being treated with oxygen therapy?: No Does the patient have pulmonary hypertension: No suspicion Is the patient being referred for transplantation?: No IMP/PLAN 1.ILD--MCTD--UIP pattetrn--on low dose mycopheymopate 2.TPMT intermediate activity 3.CHAVES -stable 4.hiatal hernia--large--manometry 2020--evidence of decreased esophageal contractility0--no gerd 5.MCTD--no evidence of pulm htn on most recent echo 2022 6.moderate restrictive disease PLAN 1.myfortic-delayed release mycophenylate--360mg 2.cbc and lft qmonth 3.possible escalation to toci or rituxan if symptoms proogress 4.fup 3 months Alan Rene MD CC: documented in this encounter [facility] 10-28-2022 History of Present illness Narrative Subjective Patient ID: Tamy Vazquez is a 42 y.o. female who presents for URI (Fever, chills, body aches. Since 4 AM ). Today she is accompanied by alone. URI This is a new problem. The current episode started today. The problem has been gradually worsening. The maximum temperature recorded prior to her arrival was 100.4 - 100.9 F. The fever has been present for 1 to 2 days. Associated symptoms include congestion, a plugged ear sensation and sinus pain. Pertinent negatives include no abdominal pain, coughing, diarrhea, dysuria, ear pain, headaches, joint pain, joint swelling, nausea, neck pain, rash, rhinorrhea, sneezing, sore throat, swollen glands, vomiting or wheezing. She has tried acetaminophen and NSAIDs for the symptoms. The treatment provided mild relief. Review of Systems HENT: Positive for congestion and sinus pain. Negative for ear pain, rhinorrhea, sneezing and sore throat. Respiratory: Negative for cough and wheezing. Gastrointestinal: Negative for abdominal pain, diarrhea, nausea and vomiting. Genitourinary: Negative for dysuria. Musculoskeletal: Negative for joint pain and neck pain. Skin: Negative for rash. Neurological: Negative for headaches. Objective Last Menstrual Period (LMP Unknown) BSA: There is no height or weight on file to calculate BSA. Growth percentiles: Facility age limit for growth %lizzie is 20 years. Facility age limit for growth %lizzie is 20 years. Physical Exam Nursing note reviewed. Constitutional: Appearance: Normal appearance. Pulmonary: Effort: Pulmonary effort is normal. No respiratory distress. Neurological: Mental Status: She is alert. Psychiatric: Mood and Affect: Mood normal. Behavior: Behavior normal. Thought Content: Thought content normal. Judgment: Judgment normal. Assessment/Plan Problem List Items Addressed This Visit Hyperparathyroidism (CMS/HCC) Other Visit Diagnoses Sinus congestion - Primary Relevant Medications azithromycin (Zithromax) 250 mg tablet Fever, unspecified fever cause Relevant Medications azithromycin (Zithromax) 250 mg tablet -Reviewed all labs with patient and consultation reports - Advised patient to push fluids -covid test if worse - Advised patient to call if no improvement and adjust coumadin dose - ABX sent to pharmacy - Patient to report to ED if develops chest pain, SOB, or fevers unrelieved by tyelnol/advil documented in this encounter [facility] Work Phone: 10-28-2022 Instructions Tayo Rodriguez MD - 10/28/2022 1:00 PM EDT Current Outpatient Medications Medication Sig Dispense Refill albuterol 90 mcg/actuation inhaler Inhale 2 puffs every 4 hours if needed for shortness of breath. azaTHIOprine (Imuran) 50 mg tablet Take 1 tablet (50 mg) by mouth once daily. doxycycline (Oracea) [address] capsule Take 1 capsule (40 mg) by mouth once daily in the morning. Do not crush or chew. Take with a full glass of water and do not lie down for at least 30 minutes after. hydrocortisone 2.5 % cream apply to THE UPPER LIP AND EYEBROWS twice a day for up to TWO WEEKS then DISCONTINUE hydroxychloroquine (Plaquenil) 200 mg tablet Take 1 tablet (200 mg) by mouth once daily. ibuprofen 200 mg tablet Take 1 tablet (200 mg) by mouth every 6 hours if needed for mild pain (1 - 3). ketoconazole (NIZOral) 2 % shampoo Apply 1 Application topically 1 (one) time per week. montelukast (Singulair) 10 mg tablet Take 1 tablet (10 mg) by mouth once daily at bedtime. 90 tablet 1 omeprazole (PriLOSEC) [address] capsule Take 1 capsule (20 mg) by mouth 2 times a day. Do not crush or chew. warfarin (Coumadin) 1 mg tablet take 1 tablet by mouth once daily IN ADDITION TO 5MG DOSE 90 tablet 1 warfarin (Coumadin) 3 mg tablet Take 1 tablet (3 mg) by mouth once daily in the evening. 90 tablet 2 Winlevi 1 % cream Apply 1 Application topically once daily. azithromycin (Zithromax) 250 mg tablet Take 2 tablets (500 mg) by mouth once daily for 1 day, THEN 1 tablet (250 mg) once daily for 4 days. Take 2 tabs (500 mg) by mouth today, than 1 daily for 4 days.. 6 tablet 0 omeprazole OTC (PriLOSEC OTC) 20 mg EC tablet Take 1 tablet (20 mg) by mouth twice a day. warfarin (Coumadin) 4 mg tablet Take 1 tablet (4 mg) by mouth. Take as directed per After Visit Summary. No current facility-administered medications for this visit. - Advised patient to push fluids -covid test if worse - Advised patient to call if no improvement and adjust coumadin dose - ABX sent to pharmacy - Patient to report to ED if develops chest pain, SOB, or fevers unrelieved by tyelnol/advil documented in this encounter [facility] Work Phone: 10-21-2022 Miscellaneous Notes Connected with patient via text--platelets at 102 Cont with imruna 50mg daily--fup cbc in one week documented in this encounter [facility] 08-12-2022 Instructions Gale Goodrich APRN.HARJINDER - 08/12/2022 1:50 PM EDT TO DO: - Pap results My Chart 1-2 weeks - Other results to My Chart 1-2 days SCHEDULE: - Follow up in 1 year for annual E MERCHANT exam, sooner if needed Vitamin D3 2,000IU daily (bump up in winter to 4,000IU) - you can take up to 5,000IU daily if desired You can buy this over the counter: try [employer], [employer], [employer] or Drug store -> Low vitamin D is associated with bone loss, bone pain, osteoporosis,multiple sclerosis, macular degeneration, depression, diabetes, and a higher risk for breast and colon cancer and heart disease. We also recommend 4-5 daily servings of dietary calcium (milk, cheese, yogurt, spinach, orange juice, dark/leafy veggies, beans, almonds, soy milk) ->Weight-bearing exercises (such as walking, hiking, jogging, tennis, dancing or climbing stairs), stopping smoking (if you smoke) and limiting alcohol intake, will greatly decrease your risk of osteopenia/osteporosis (thinning of the bones) as you age. All adults should avoid inactivity. Some physical activity is better than none, and adults who participate in any amount of physical activity gain some health benefits. To benefit your health, you should do at least 150 minutes (2 hours and 30 minutes) per week of moderate-intensity, or 75 minutes (1 hour and 15 minutes) a week of vigorous-intensity aerobic physical activity. Aerobic activity should be performed in episodes of at least 10 minutes, and preferably, it should be spread throughout the week. Currently only 23% of Americans are getting enough exercise. -> Exercise is linked to improved mental and physical health documented in this encounter [facility] 08-12-2022 History of Present illness Narrative Images from the original note were not included. Women's Health [place] [facility] PATIENT NAME: Tamy Vazquez PCP: Tayo Rodriguez MD DATE: 08/12/2022 Chief Complaint CC: Annual E MERCHANT exam History of Present Illness: Tmay is a 42 year old who presents for her annual gynecologic exam. Patient also would like to discuss the following concerns: None Denies vaginal itching, irritation, discharge or odor. Menses: no menses - postmenopausal. Dysmenorrhea: n/a BTB: n/a When asked if she is experiencing any menopausal symptoms (hot flashes, vaginal dryness, night sweats, insomnia, mood swings) patient stated I already discussed this with Dr. Carrion) Last Pap: 12/05/2017, normal HPV: 11/30/2017, negative History of abnormal pap: Yes- ASCUS, negative HPV Sexually active: Yes History of STDS: None Patient concerns for STD exposure: No. Desire STD testing: declines STD testing Pain with intercourse: No Postcoital bleeding: No Last mammogram: 07/08/2021 normal History of abnormal mammogram: No Last Colonoscopy: 04/03/2012 DXA completed 06/02/2022: Osteoporosis, patient is to begin reclast injections this August. Exercise: Yes Dietary calcium: Trying Vitamin D3: Yes Tobacco use? No OB History T0 L2 SAB0 IAB0 Ectopic0 Multiple1 Live Births2 Comment: menarche FFTP Vice Chair History LMP: 03/23/2020, Postmenopausal Age at Menarche: Age at First : Age at Menopause: Vice Chair History Comments: Sexual Activity: Yes; Male Contraception: None Family history of breast/ovarian/uterine cancer? No Review of Systems: General: Feels well. Denies fatigue, fever, chills, unintentional weight loss/weight gain. Psych: Feels stable, denies anxiety, depression or mood changes. Stress is tolerable. Abdomen: No abdominal pain, nausea, vomiting, diarrhea, or constipation. No bloating, early satiety, indigestion, or increased flatulence. Bladder: No dysuria, gross hematuria, urinary frequency, urinary urgency, or incontinence Breast: No breast lumps, nipple d/c, overlying skin changes, redness or skin retraction Past Medical History: PAST MEDICAL HISTORY Diagnosis Date Acute appendicitis 04/06/2021 Asthma Chronic Nonallergic Rhinitis 06/12/2009 Connective tissue disorder (HCC) Endometriosis, site unspecified Endometriosis Esophageal reflux Hyperparathyroidism (HCC) Menorrhagia Osteoporosis 05/2022 with LOSS T-score -3.0 Peripheral vascular disease (HCC) Personal history of unspecified urinary disorder PMH - PAST MEDICAL HISTORY OF hypercoaguable state PMH - PAST MEDICAL HISTORY OF 04/18/2005 blood clot internal jugular vein, 4 weeks diagnosed Protein S deficiency (HCC) 05/19/2002 cavernous sinus thrombosis 4 week Raynaud's syndrome Rib fracture 06/19/2014 Seasonal allergies Vitamin D deficiency Family History: Family History Problem Relation Age of Onset other (hysterectomy) Mother Osteoporosis Mother Asthma Mother Hypertension Father Diabetes Father other (seasonal allergies) Brother No Known Problems Maternal Grandmother No Known Problems Maternal Grandfather No Known Problems Paternal Grandmother Heart Attack Paternal Grandfather ADD/ADHD Son Past Surgical History: PAST SURGICAL HISTORY Procedure Laterality Date APPENDECTOMY 03/2021 EMBOLIZATION UTERINE FIBROID 03/18/2013 LAPAROSCOPIC APPENDECTOMY 03/30/2021 LAPS ABD PRTM&OMENTUM DX W/WO SPEC BR/WA SPX 04/18/2004 Laparoscopy for endometriosis at [place] Dr [facility]iman at [facility], no control afterward, ++relief and + relief with surgery, laser PT ED ENDOCRINOLOGY 2016 Social History: Social History Tobacco Use Smoking status: Never Smokeless tobacco: Never Vaping Use Vaping Use: Never used Substance Use Topics Alcohol use: Yes Alcohol/week: 2.0 standard drinks Types: 2 Glasses of Wine (5oz) per week Comment: occasional Drug use: No Allergies: ALLERGIES Allergen Reactions Amerigel [Zinc Acet* Daniel burning at area Cefdinir Other: See Comments Dizzy Flagyl [Metronidazo* Intolerance, GI Upset Nausea, fatigue, poor appetite Allergies updated: Yes Medications: Current Outpatient Medications Medication Sig Cholecalciferol, Vitamin D3, (VITAMIN D) 25 mcg (1,000 unit) cap Take 2 capsules by mouth once daily. WINLEVI 1 % crea APPLY A THIN LAYER TO THE FACE TWICE A DAY azaTHIOprine (IMURAN) 50 mg tablet Take 2 tablets by mouth once daily. cephALEXin (KEFLEX) 500 mg capsule TAKE 1 CAPSULE BY MOUTH TWICE A DAY FOR 10 DAYS (Patient not taking: Reported on 06/19/2022) lansoprazole (PREVACID) 30 mg capsule Take by mouth. ketoconazole (NIZORAL) 2 % shampoo Ketoconazole 2 % External Shampoo WASH THE SCALP DAILY - LATHER - LEAVE ON FOR 3-5 MINUTES, THEN RINSE Quantity: 120 Refills: 0 Ordered: 29-Jul-2020 DO Start : 14-Jan-2020 Complete Spirometers and Accessories gary 1 Device four times daily. warfarin (COUMADIN) 1 mg tablet take 2 & 1/2 tablets by mouth once daily warfarin (COUMADIN) 2 mg tablet Take 1.5 tablets by mouth daily as directed. (Patient taking differently: Take 3 mg by mouth daily as directed. 4.5-5mgs daily) montelukast (SINGULAIR) 10 mg tablet Take 10 mg by mouth daily at bedtime. fexofenadine HCl (ERNESTINE ORAL) Take by mouth as needed. Omeprazole 20 mg TbEC Take 1 tablet by mouth twice daily. calcium citrate/vitamin D3 (CALCIUM CITRATE + D ORAL) Take 1 tablet by mouth once daily. (Patient not taking: Reported on 06/16/2022) Doxycycline Monohydrate 40 mg capsule Take 40 mg by mouth once daily. hydrOXYchloroQUINE (PLAQUENIL) 200 mg tablet Take 200 mg by mouth once daily. Current Facility-Administered Medications Medication Dose Route Frequency perflutren lipid microspheres 1.3 mL in NaCl (PF) 0.9% 10 mL injection (DEFINITY) INTRAVENOUS DIRECTED PRN sodium chloride 0.9 % (flush) 10 mL (BD POSIFLUSH) 10 mL INTRAVENOUS DIRECTED PRN perflutren lipid microspheres 1.3 mL in NaCl (PF) 0.9% 10 mL injection (DEFINITY) INTRAVENOUS DIRECTED PRN sodium chloride 0.9 % (flush) 10 mL (BD POSIFLUSH) 10 mL INTRAVENOUS DIRECTED PRN Medications reviewed in detail and updated PRN. Yes Physical Exam: BP 102/60 LMP 03/23/2020 (Exact Date) GENERAL: Well appearing, alert, well-hydrated, well nourished female in no apparent distress HEENT: Normocephalic, atraumatic, mucus membranes moist, and no lesions NECK: Supple, full range of motion, no adenopathy, and thyroid normal DERMATOLOGY: Normal, without lesions, non-icteric, and non-hirsute BREAST: soft, non-tender, symmetric, no dominant mass, normal nipple-areolar complex, no lymphadenopathy, and no nipple discharge CHEST: Normal inspiratory effort ABDOMEN: soft, non-tender, and no masses PELVIC: external genitalia normal, normal Bartholin's glands, urethra, [place]'s glands, no vulvar lesions, no cervical lesions, good vaginal support, physiologic discharge present, normal appearing perineal body and perianal region BIMANUAL: uterus normal size, shape and consistency, no adnexal masses, and non-tender RECTOVAGINAL: deferred. NEURO: alert and oriented x3 EXTREMITIES: normal Recent labs/Diagnostic studies: I have thoroughly reviewed this patients previous notes, encounters, labs, and results prior to this visit. Health Maintenance COLORECTAL CANCER SCREENING due on 04/01/2012 MAMMOGRAM due on 11/10/2021 PAP TESTING due on 11/28/2022 HPV TESTING due on 11/28/2022 Assessment and Plan Encounter Diagnosis ICD-10-CM 1. Encounter for gynecological examination (general) (routine) without abnormal findings Z01.419 2. Encounter for screening mammogram for malignant neoplasm of breast Z12.31 GEM SCREENING W JI 3. Screening for cervical cancer Z12.4 PAP TEST 1) Cervical cancer screening: PAP/HPV done today. 2) Mammogram ordered. 3) Nutrition, exercise and routine health maintenance exams reviewed. There is no height or weight on file to calculate BMI. 4) Dietary calcium/Vitamin D3 supplementation information provided. 5) Smoking status: Non-smoker. Non-Smoker. 6) Contraception: none. Contraceptive options reviewed and information provided. 7) Colon cancer screening: patient to discuss with PCP 8) DXA: up to date, due 2024. 9) STD check: Declined STD check. 10) Follow up one year or sooner as needed SIGNATURE: Gale Goodrich APRN.CNP PAGER: [phone] CC: Tayo Rodriguez MD via EMR documented in this encounter [facility] 08-12-2022 Instructions Joslyn Carrion MD - 08/12/2022 12:57 PM EDT Images from the original note were not included. I recommend she read or listen to - my book A [facility] Guide to Menopause is at the local library OR ON LINE and sign up for our FREE [facility] e-newsletter www [email or web address] OR listen to FREE Podcast [facility] anywhere you listen to podcasts including our [email or web address] COPING WITH THE SYMPTOMS OF MENOPAUSE Not all WOMEN experiences menopause in the same way. For some, menopause can bring on an array of uncomfortable symptoms. Others may experience few if any discomforts. This information has been prepared to help you manage the most common changes associated with the midlife transition. RELIEVING HOT FLASHES * Identify and avoid your hot flash triggers. Common triggers may include stress, caffeine, alcohol, spicy foods, tight clothing, heat and cigarette smoke. * Keep the bedroom cool. Use fans during the day. Wear light layers of clothes with natural fibers. * Try deep, slow abdominal paced breathing (6 to 8 breaths per minute). Practice deep breathing for 15 minutes in the morning, 15 minutes in the evening and at the onset of hot flashes. * Exercise daily. Walking, swimming, dancing and bicycling with helmet are good choices along with yoga. * Add soy protein in the form of foodstuffs NOT supplements(40-60 mg) to your diet daily in place of animal protein. Promensil and isoflavone tablets have NOT been shown to significantly help menopausal symptoms * Black cohosh (in the form of Remifemin) can be used for hot flashes and has been approved by [place] for only 6 months of use, however has NOT been well studied in the [place] for alf effects AND THERE HAVE BEEN REPORTS OF LIVER TOXICITY WITH BLACK COHOSH USE. (Avoid kava kava, valerian root and beware that most herbal products are NOT regulated in the [place] and some have been associated with liver toxicity) NOTE: HORMONE THERAPY (HT) is the MOST EFFECTIVE treatment and the only FDA approved treatment for menopausal symptoms. Any form of hormones, including 'bioidentical' hormones have risks as well as benefits. * Antidepressants like effexor (venlaflaxine) a NSRI or Pristiq (desvenlafaxine) another agent, neurontin (gabapentin) may help block hot flashes and all have risks and benefits like any prescription or off the shelf medicine. Brisdelle (low dose paroxetine mesylate 7.5mg daily) is FDA approved as a non-hormonal agent to treat hot flashes. We are expecting a non-hormonal KDNY neuron inhibitor on the market. * Use of bellergal is discouraged as it contains an addictive barbiturate. 1. Go to sleep and wake up at the same time every day, even on holidays and weekends. 2. Use the bed for sleep and sexual activity only, not for reading, watching television, or working. 3. Avoid napping. 4. If sleep does not begin within 20 to 30 minutes, leave the bed and return only when drowsy. 5. Keep the room quiet, cool, and dark. 6. Use ear plugs to decrease ambient noise. 7. Avoid caffeine within six hours of bedtime. 8. Avoid alcohol and smoking one to two hours before bedtime. 9. Establish relaxation pre-sleep rituals, such as a warm bath or reading. 10. Wear socks to bed (lowers core body temperature). 11. Exercise earlier in the day. 12. Use a 10 minute 'worry period' daily. 13. Read Getting a good night's sleep by Dr. Kat Stone. COPING :WITH MOOD SWINGS, FEARS AND DEPRESSION * Find a self-calming skill to practice, such as yoga, meditation or slow deep breathing. * Avoid tranquilizers, if possible, however prescription anti-depressants can be very effective. * Engage in a creative outlet that fosters a sense of achievement. * Stay connected with your family and community; nurture your friendships. RELIEVING PAINFUL INTERCOURSE * Try using a vaginal water-based moisturizing lotion 3 times a week (like replens or SILK-E) or lubricant during intercourse like KY jelly or lubrin or astroglide. Either olive oil or vitamin E can be used as a vaginal moisturizer and lubricant. *Local estrogen treatments for the vagina/bladder like estring vaginal ring can be used and estring can be used in breast cancer survivors as only a local therapy and NIGHTLY vaginal DHEA can be used and helps sexual function. *Non-hormonal oral Osphena 60 mg with food daily is an non-hormonal option for women. PREVENTING OSTEOPOROSIS * Calcium and vitamin D can slow bone loss and may decrease fractures. Consume1,500 milligrams of calcium a day in divided doses. Calcium is necessary but not always sufficient. Good sources of calcium are calcium supplements, like Tums, fruit juices and breads; lowfat dairy products; green leafy vegetables such as broccoli, kale and spinach greens, almonds; and soy milk. Calcium CITRATE like Citracal D is well absorbed with or without food/stomach acid and is the preferred calcium supplement in women on stomach acid blockers and women with a history of kidney stones. * Vitamin D aids in the absorption of calcium and stimulates bone formation. Consume SEPARATE 2,000 iu international units of vitamin D a day and up to 5,000 iu daily if you have been found to be low take D3 with K2 and bring in supplements to your visit. * Eat foods low in sodium, low in animal protein and low in caffeine. * Bone mass is built before menopause as a result of exercising, diet, and genetics. Exercises that increase bone mass are the ones that make the muscles work against gravity. Walking and muscle-building exercise may reduce bone loss and fractures and improve balance. Visit www.nof.org, the National Osteoporosis Foundation web site for more bone tips. PREVENTING HEART DISEASE * Eat a variety of vegetables, fruits and whole grains, including soy foods (NOT supplements). Limit salt, cholesterol and fat, especially animal fat. Consider ingesting 25 grams of soy a day. Avoid Transfats the 'partially hydrogenated oils.' Consume the omega 3 fats in flaxseed, fish, tuna, salmon, and walnuts and almonds at least twice a week. * Get a least 30-60 minutes of moderate exercise over the course of each day. Many activities increase the heart rate, including gardening, walking, dancing and aerobic exercises. The activity period does not need to be continuous. Consider getting a pedometer to monitor your activity and strive to walk at least 10,000 steps a day. * Do NOT smoke.Even 1-2 cigarrettes a day increases risk. * Maintain a healthy weight. Know your BMI (body mass index) * Follow your physician's instructions for controlling high blood pressure-note new guidelines indicate that BP of over 115/75 are associated with potential organ damage. Diabetes prevention and control is very important as diabetes is a 'heart disease equivalent'. Cholesterol lowering with diet and statin agents have been shown to reduce the risk of heart disease. Consider having an [facility] blood test for further cardiac risk assessment if you have borderline elevations in the blood lipids/fats. * Take a vitamin supplement under physician guidance. Choose one that contains the antioxidants including vitamins E and C and B complex like centrum silver. Avoid taking B-carotene supplements. [email or web address] Follow us on Facebook, Sproomube and Twitter [email or web address] Listen to our FREE Podcast, Speaking of Women's Health and please sign up for FREE eNewsletter and monthly Health Tip from Dr Carrion at [email or web address] Follow us on Facebook, Money Dashboard and Twitter [email or web address] REASON FOR A VIRTUAL ONLINE APPOINTMENT In order to provide you with the best care possible, the [facility] and your physician is using a technology to connect patients, physicians and family members through a live audio and video communication via [facility] and Zoom (free blair you can download via [employer].) For scheduled MyChart Zoom visits please log on at least 15 minutes PRIOR to appointment to check in and answer check in questions. Before your appointment: Please sign into [employer] Tap on Begin appointment with On the appointment details screen will show a pre check in, the pre-check in can be done up to 7 days before the patients appointment. This will include checking your: -Personal information -Insurance -Medications -Allergies If this is a scheduled visit you will be given instructions how to download zoom to their device as you CANNOT do your visit virtual visit on [facility] without the free zoom blair, or WITHOUT completing the pre-check in and [employer] seems to work better. On the day of your appointment: Please Login Guide up to 15mins before scheduled visit and you can do sooner Tap on the begin your appointment with This will take you you to virtual waiting room until connects. There are at least 2 types of virtual visits-scheduled visits which is mainly what Dr. Carrion dose with the visit starting within the [facility] [employer] blair OR the on demand urgent [facility]. Both are accessible through your mobile device or a desktop/laptop with a browser and internet connection. Cell Phones seem to work a bit better with back up cellular data. Please remember that scheduled virtual visits are DIFFERENT than your potential previous experience with on-demand urgent visits. HOW DO I GET STARTED-note scheduled visits different than On-Demand Urgent visits! On an iPhone, iPad, or Android Device, open up the Blair Store or PrepClass and search for [facility] and also [facility] Download and Install the Applications Tap on Sign Up and create a patient account for yourself Please use an e-mail address that you frequently check, as you will receive an e-mail appointment from [facility] Find our user guide, here: [email or web address] Or, on a desktop/laptop computer that has a webcam connected, go to the URL: [email or web address] Click on Sign Up and Create a patient account for yourself Please also follow the links to Test My Computer Follow the steps suggested, testing your Internet Speed, Webcam, Microphone, Speaker, and your video software. Please make sure your video software is up-to-date. This is a safe, [facility] approved download, and will not harm your computer. Important: Don t forget your password you choose during setup. For your personal records: Your E-mail Address Here: Your Password Here: YOUR ONLINE VIRTUAL VISIT Once the visit is scheduled, you should plan to begin your visit AT LEAST 15 minutes prior to the start of your visit. Please have your questions, lab results, exact medications, supplements etc ready and know where you may want any prescriptions escripted to. You can begin by opening the email you received to schedule this visit, click on Start Visit, agree to the Terms of Use, and wait for your visit to start! OR open up Cas[employer]at for your scheduled Zoom video visit which is safe and secure. Agree to the Terms of Use, and wait for your visit to start! When you join the virtual visit you will be connected to the physician. Please call [phone] prior to your visit if you have any questions regarding technology! 1) An order for once every OTHER YEAR IV 5mg reclast was placed in [facility] in the [facility] for her to receive every other year reclast infusion for the prevention of ostmenopausal osteoporosis- (This should be scheduled in the procedure room and is at least a 15 min infusion, forwarded to [facility] senior power scheduler.) Risks, benefits, and alternatives regarding prevention of postmenopausal osteoporosis were discussed. 2) OFFICE STAFF: The patient will need to sign the form that allows the supplier company to assist in making sure that the drug is covered by her insurance. Please make arrangements for her to do this. Please have her sign and fax in, let her know it may take a week to hear back and get officially approved/covered by insurance. 3) The patient will need a non-fasting lab draw to verify that her vitamin D 25-OH level is normal (within 3 months of dose) and kidney function (within 3 month of dose) are normal prior to administration of 5mg of IV reclast (zoledronic acid). Please have the patient return within the next 20 days for a NON FASTING blood draw to any [facility] Lab (main campus OR satellite) She may eat/drink prior to blood work The patient is instructed to TAKE her MEDICATION WITH WATER THE AM OF THE BLOOD TEST- DO NOT SKIP YOUR USUAL MEDICATIONS. 4) After above form back and insurance coverage verified, please let me know and I will forward the request to the schedulers and nurses for the actual infusion date and appointment in The [address] 5) Please mail the patient out a pre-infusion worksheet, notifying her to drink plenty of water the day of and following the infusion, and also instruct her to take Use Tylenol Extra Strength/acetaminophen(ie. 500 mg) orally or Ibuprofen (Motrin 200mg) one to two tablets every 6-8 hours and with food starting the day prior, the day of, and the day after the infusion to minimize the risks of achiness following the first time she ever receives the medicine- not everyone gets a 'flu-like' reaction but taking the tylenol or Motrin can help to prevent it. She may stop the acetaminophen (or ibuprofen) after this time frame. Thank you and please call with any questions. documented in this encounter [facility] 07-26-2022 History of Present illness Narrative Pharmacist Clinic 07/26/22 Tamy Vazquez was referred to the Clinical Pharmacy Team for her osteoporosis management and Prolia initiation. Referring Provider: Tayo Rodriguez MD OSTEOPOROSIS ASSESSMENT CURRENT PHARMACOTHERAPY FOR OSTEOPOROSIS - None HISTORICAL PHARMACOTHERAPY FOR OSTEOPOROSIS - Was on bisphosphonates in the past but had s/e RELEVANT LAB RESULTS No results found for: CREATININE, BUN, NA, K, CL, CO2 No results found for: CHOL No results found for: HDL No results found for: LDLCALC No results found for: TRIG No components found for: CHOLHDL ADDITIONAL INFORMATION Calcium/Vitamin D therapy: Yes Planned upcoming dental/oral procedures: No Coverage: [Pharmacy/Medical] - Pharmacy TBD - Cost/coverage: Pending - PA information: Pending PATIENT EDUCATION/DISCUSSION - Educated patient on Prolia dosing, common SE, anticipated response to therapy, benefits of therapy, and 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 START Prolia 60 mg under the skin once every 6 months. 2. Prescription to [facility] for assistance with coverage and medication will be delivered to office for administration. Clinical Pharmacist follow-up: As needed Type of Encounter: Virtual Thank you, Matthew Ureña PharmD documented in this encounter [facility] Work Phone: 07-08-2022 History of Present illness Narrative Subjective Patient ID: Tamy Vazquez is a 42 y.o. female who presents for No chief complaint on file.. Today she is accompanied by alone. HPI Has a swollen gland on the right side of her face. It is getting better. 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 Feeling much better Has a white coating on her tongue. Review of Systems Constitutional: Negative for activity change, appetite change, chills, diaphoresis, fatigue, fever and unexpected weight change. HENT: Negative for congestion, dental problem, drooling, ear discharge, ear pain, facial swelling, hearing loss, nosebleeds, postnasal drip, rhinorrhea, sinus pressure, sinus pain, sneezing, sore throat, tinnitus, trouble swallowing and voice change. Eyes: Negative for pain, discharge, redness, itching and visual disturbance. Respiratory: Negative for cough, chest tightness, shortness of breath and wheezing. Cardiovascular: Negative for chest pain, palpitations and leg swelling. Gastrointestinal: Negative for abdominal pain, blood in stool, constipation, diarrhea, nausea and vomiting. Endocrine: Negative for cold intolerance, heat intolerance, polydipsia, polyphagia and polyuria. Genitourinary: Negative for decreased urine volume, dysuria, flank pain, frequency, hematuria and urgency. Musculoskeletal: Negative for arthralgias, back pain, gait problem, joint swelling, myalgias and neck stiffness. Skin: Negative for color change, pallor, rash and wound. Neurological: Negative for dizziness. Hematological: Negative for adenopathy. Does not bruise/bleed easily. Psychiatric/Behavioral: Negative for agitation, behavioral problems and sleep disturbance. The patient is not nervous/anxious. All other systems reviewed and are negative. Objective BP 110/78 Pulse 76 Temp 36.2 C (97.1 F) Ht 1.6 m (5' 3) Wt 54 kg (119 lb 0.8 oz) LMP (LMP Unknown) BMI 21.09 kg/m BSA: 1.55 meters squared Growth percentiles: Facility age limit for growth %lizzie is 20 years. Facility age limit for growth %lizzie is 20 years. Physical Exam Vitals and nursing note reviewed. Constitutional: General: She is not in acute distress. Appearance: Normal appearance. She is normal weight. She is not ill-appearing or toxic-appearing. HENT: Head: Normocephalic. Right Ear: Tympanic membrane, ear canal and external ear normal. There is no impacted cerumen. Left Ear: Tympanic membrane, ear canal and external ear normal. There is no impacted cerumen. Nose: No rhinorrhea. Mouth/Throat: Mouth: Mucous membranes are dry. Pharynx: Oropharynx is clear. No oropharyngeal exudate or posterior oropharyngeal erythema. Eyes: General: No scleral icterus. Right eye: No discharge. Left eye: No discharge. Extraocular Movements: Extraocular movements intact. Conjunctiva/sclera: Conjunctivae normal. Pupils: Pupils are equal, round, and reactive to light. Neck: Vascular: No carotid bruit. Cardiovascular: Rate and Rhythm: Normal rate and regular rhythm. Pulses: Normal pulses. Heart sounds: Normal heart sounds. No murmur heard. No gallop. Pulmonary: Effort: Pulmonary effort is normal. No respiratory distress. Breath sounds: No wheezing or rhonchi. Chest: Chest wall: No tenderness. Abdominal: General: Abdomen is flat. Bowel sounds are normal. Palpations: Abdomen is soft. There is no mass. Tenderness: There is no abdominal tenderness. There is no guarding or rebound. Hernia: No hernia is present. Musculoskeletal: General: No swelling. Normal range of motion. Cervical back: Normal range of motion. No rigidity or tenderness. Right lower leg: No edema. Left lower leg: No edema. Lymphadenopathy: Cervical: No cervical adenopathy. Skin: General: Skin is warm and dry. Coloration: Skin is not pale. Findings: No bruising, erythema or rash. Neurological: General: No focal deficit present. Mental Status: She is alert and oriented to person, place, and time. Sensory: No sensory deficit. Coordination: Coordination normal. Gait: Gait normal. Deep Tendon Reflexes: Reflexes normal. Psychiatric: Mood and Affect: Mood normal. Behavior: Behavior normal. Thought Content: Thought content normal. Judgment: Judgment normal. Assessment/Plan Problem List Items Addressed This Visit Blood clotting disorder (CMS/HCC) Relevant Medications warfarin (Coumadin) 1 mg tablet warfarin (Coumadin) 3 mg tablet ILD (interstitial lung disease) (CMS/HCC) MCTD (mixed connective tissue disease) (CMS/HCC) Protein S deficiency (CMS/HCC) Relevant Medications warfarin (Coumadin) 1 mg tablet warfarin (Coumadin) 3 mg tablet Secondary hypercoagulable state (CMS/HCC) - Primary Rash Other Visit Diagnoses Infection of parotid gland Relevant Medications amoxicillin-pot clavulanate (Augmentin) 875-125 mg tablet Lymphadenopathy of head and neck Relevant Medications amoxicillin-pot clavulanate (Augmentin) 875-125 mg tablet fluconazole (Diflucan) 150 mg tablet Start Augmentin that she has at home finished up for the rest the time that she has it. We will start her on Diflucan . Try to use some sour candy to help reduce some of the inflammation in the parotid. CT scan reviewed again and was normal. Follow-up as needed or if if no improvement documented in this encounter [facility] Work Phone: 06-30-2022 Miscellaneous Notes Prior Authorization for ZOLEDRONIC ACID 5 MG/100 ML: Approved Reference # [id number] valid from 06/25/2023 - 06/24/2023 Daniel Li MA documented in this encounter [facility] 06-29-2022 History of Present illness Narrative Subjective Patient ID: Tamy Vazquez is a 42 y.o. female who presents for No chief complaint on file.. Today she is accompanied by alone. HPI Has a swollen gland on the right side of her face. It is gotten worse in the last 2 days. Has not been taking any antibiotics or steroids which she got from the urgent care because she was feeling better. 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 Today she developed sore throat and runny nose and some congestion. Has a white coating on her tongue. Review of Systems HENT: Positive for congestion, dental problem, facial swelling, postnasal drip, sinus pain and sore throat. All other systems reviewed and are negative. Objective BP 110/78 Pulse 76 Temp 36.6 C (97.9 F) Ht 1.626 m (5' 4) Wt 52.2 kg (115 lb) BMI 19.74 kg/m BSA: 1.54 meters squared Growth percentiles: Facility age limit for growth %lizzie is 20 years. Facility age limit for growth %lizzie is 20 years. Physical Exam Vitals and nursing note reviewed. Constitutional: Appearance: Normal appearance. HENT: Head: Normocephalic. Right Ear: Tympanic membrane normal. Left Ear: Tympanic membrane normal. Nose: Congestion and rhinorrhea present. Mouth/Throat: Mouth: Mucous membranes are dry. Pharynx: Posterior oropharyngeal erythema present. Cardiovascular: Rate and Rhythm: Normal rate and regular rhythm. Pulses: Normal pulses. Heart sounds: Normal heart sounds. Pulmonary: Effort: Pulmonary effort is normal. Abdominal: General: Abdomen is flat. Bowel sounds are normal. Musculoskeletal: General: Normal range of motion. Cervical back: Normal range of motion. Tenderness present. No rigidity. Lymphadenopathy: Cervical: Cervical adenopathy present. Neurological: Mental Status: She is alert. Psychiatric: Mood and Affect: Mood normal. Behavior: Behavior normal. Assessment/Plan Problem List Items Addressed This Visit None Visit Diagnoses Tongue coating - Primary Relevant Medications methylPREDNISolone (Medrol Dospak) 4 mg tablets Pharyngitis, unspecified etiology Relevant Orders POCT rapid strep A manually resulted (Completed) POCT Infectious mononucleosis antibody manually resulted (Completed) Lymphadenopathy of head and neck Relevant Medications nystatin (Mycostatin) 100,000 unit/mL suspension Other Relevant Orders Sars-CoV-2 and Influenza A/B PCR, Symptomatic RSV PCR (Completed) Fungal identification, yeast Rash Start Augmentin that she has at home finished up for the rest the time that she has it. We will start her on Diflucan or nystatin based on results. Would like her to start Medrol Dosepak and finish it up that she has at home if she needs more we will send it in Try to use some sour candy to help reduce some of the inflammation in the parotid. CT scan reviewed again and was normal. Follow-up as needed or if if no improvement documented in this encounter [facility] Work Phone: 06-29-2022 Instructions Tayo Rodriguez MD - 06/29/2022 3:40 PM EDT If you have any questions about this medication list, please talk to your doctor at your next appointment. You may use this form to make notes about any medications that you have stopped or started taking, including over the counter medications. Bring the form with you to the appointment as a reminder to discuss with your doctor. documented in this encounter [facility] Work Phone: 03-08-2023 History of Present illness Narrative same day pt cx 06/22/22 labs mamm o dxa already ORDERED has [facility] appt today for PAP is DUE first visit to me PCP Tayo Rodriguez MD Consultation requested by Dr Jamey Duron for an opinion regarding menopause. My final recommendations will be communicated back to the requesting clinician by way of shared Medical record. Attending Note: Hodges findings confirmed. Patient examined. Discussed with the women's health scholar physician and the patient. Plan as outlined. Joslyn Carrion MD, FACP 42 y.o F mother of 2 sons twins via IVF lives in [place], [place] here in [facility] for premature menopause consult Patient's last menstrual period was 03/23/2020 (exact date). dx of premature ovarian failure age 39 Had uterine artery embolization for endometriosis age 32 Had hysteroscopy polypectomy 06/2018 Dr Evans Ocp never used due to infertility Has known OP, is scheduled for reclast Hx of Protein S Deficiency, Raynaud's syndrome, Connective tissue disorder, hyperparthyroidism s/p parathyroidectomy Took calcium citrate and got salivary stone on life long coumadin Has history of kidney stones had surgical intervention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 the known and potential risks of such product; and that there are no adequate, approved and available alternatives. All of these criteria must be met to allow for the product to be used in the treatment of patients during the COVID-19 pandemic. The EUA for EVUSHELD is in effect for the duration of the COVID-19 declaration justifying emergency use of EVUSHELD, unless terminated or revoked (after which EVUSHELD may no longer be used under the EUA). What are the ingredients in EVUSHELD? Each EVUSHELD co-packaged carton contains 2 vials. Active ingredient: Each of the vials contains either: tixagevimab or cilgavimab Inactive ingredients: Each vial contains L- histidine, L- histidine hydrochloride monohydrate, polysorbate 80, sucrose, water. Distributed by: [employer] [place] Manufactured for: [employer] [place] [employer] 2021. All rights reserved. documented in this encounter [facility] 01-21-2022 History of Present illness Narrative Dear Dr. Alan Rene, I had the pleasure of seeing Tamy Vazquez in consultation for evaluation and and management of ILD. I saw Mr. Vazquez in my combined pulmonary/rheumatology clinic. Summary of this visit and my recommendations will be relayed to the referring physician and primary care physician by way of electronic communication or by mail. Please find my evaluation below. HISTORY OF PRESENT ILLNESS: Tamy Vazquez is a very pleasant 41 year old female who presents today for evaluation of CTD with associated ILD. Ms. Vazquez was first evaluated in ILD clinic by our colleague Dr. Alan Rene in April 2020. She carries a diagnosis of MCTD which was diagnosed about 20 years ago. She has GABRIEL 1:1280,+RN ACUTE CARE, +dsDNA, +crithidia, +chromatin AB. She was first noted to have positive GABRIEL at the age of 18 at a [employer] sports medicine appointment at which time she was having intermittent fever. Later she was treated for a time with MTX when she was having myalgias and inflammatory arthralgias. She responded well to the MTX and was taken off due to remission of disease symptoms. She has ore recently been treated with only plaquenil. She has history of GI issues such as bloating after a large meal and a few years ago had CT of the abdomen which noted some interstitial changes on the bases of the lungs. SHe subsequently has had CT chest imaging and was referred to ILD clinic for abnormal CT chest suggestive of UIP. She was prescribed MMF in April 2020 but was intolerant and started azathioprine. However, her TPMT was intermediate activity so titrating up the dosing for this has been difficult. SHe has now increased dosing to 100mg daily. She also has history of internal jugular vein blood clot about 16 years ago after having twins. SHe is now on lifelong coumadin. Past medications: MTX, no issues with this, but discontinued due to remission of disease Cellcept: lost appetite, weight loss, tinnitus She has bloating with eating large meals. +reflux of stomach acid. No food regurgitation. No dysphagia or choking with eating. +Raynauds. Healed ulcer on one fingertip. Some swelling of fingers on occasion. No muscle weakness. Dry eye which is managed. SOB only if running. Otherwise, walks up and down stairs with no dyspnea. Does peloton and has personal care aid with no issues to breathing. SHe has some allergies and has a little cough to clear mucus in the mornings. Otherwise, no cough. She denies wheeze and there is no history of hemoptysis. She denies near syncope, syncope, chest pain, palpitations, PND, orthopnea or lower extremity edema. From an interstitial lung disease standpoint, there is no occupational, medication or environmental exposures. There is no family history for interstitial lung disease. REVIEW OF SYSTEMS: MRC Dyspnea Scale: 1. Not troubled by breathlessness except on strenuous exercise Otherwise, all others per history of present illness or negative on detailed 14 point review. PAST MEDICAL HISTORY Diagnosis Date Acute appendicitis 04/06/2021 Asthma Chronic Nonallergic Rhinitis 06/12/2009 Endometriosis, site unspecified Endometriosis Esophageal reflux Menorrhagia Peripheral vascular disease (HCC) Personal history of unspecified urinary disorder PMH - PAST MEDICAL HISTORY OF hypercoaguable state PMH - PAST MEDICAL HISTORY OF 04/18/2005 blood clot internal jugular vein, 4 weeks diagnosed Protein S deficiency (HCC) 05/19/2002 cavernous sinus thrombosis 4 week Raynaud's syndrome Rib fracture 06/19/2014 PAST SURGICAL HISTORY Procedure Laterality Date APPENDECTOMY 03/2021 EMBOLIZATION UTERINE FIBROID 03/18/2013 LAPAROSCOPIC APPENDECTOMY 03/30/2021 LAPS ABD PRTM&OMENTUM DX W/WO SPEC BR/WA SPX 04/18/2004 Laparoscopy for endometriosis at [place] Dr Soliman at [facility], no control afterward, ++relief and + relief with surgery, laser SOCIAL HISTORY: Social History Tobacco Use Smoking status: Never Smokeless tobacco: Never Alcohol Use: Approximately 1.2 oz/week [which includes 2 Glasses of Wine (5oz) per week] (occasional) Drug Use: No 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 HISTORY:none FAMILY HISTORY Problem Relation Age of Onset other (hysterectomy) Mother Hypertension Father Diabetes Father Heart Paternal Grandfather ALLERGIES Allergen Reactions Amerigel [Zinc Acet* Daniel burning at area Cefdinir Other: See Comments Dizzy Flagyl [Metronidazo* Intolerance, GI Upset Nausea, fatigue, poor appetite CURRENT MEDICATIONS azaTHIOprine (IMURAN) 50 mg tablet^Take 2 tablets by mouth once daily.^Disp: 60 tablet^Rfl: 11 cephALEXin (KEFLEX) 500 mg capsule^TAKE 1 CAPSULE BY MOUTH TWICE A DAY FOR 10 DAYS^Disp: ^Rfl: (Patient not taking: Reported on 12/30/2021) lansoprazole (PREVACID) 30 mg capsule^Take by mouth.^Disp: ^Rfl: ketoconazole (NIZORAL) 2 % shampoo^Ketoconazole 2 % External Shampoo WASH THE SCALP DAILY - LATHER - LEAVE ON FOR 3-5 MINUTES, THEN RINSE Quantity: 120 Refills: 0 Ordered: 29-Jul-2020 DO Start : 14-Jan-2020 Complete^Disp: ^Rfl: Spirometers and Accessories gary^1 Device four times daily.^Disp: 1 Each^Rfl: 0 warfarin (COUMADIN) 1 mg tablet^take 2 & 1/2 tablets by mouth once daily^Disp: 90 tablet^Rfl: 3 warfarin (COUMADIN) 2 mg tablet^Take 1.5 tablets by mouth daily as directed.^Disp: 60 tablet^Rfl: 3 montelukast (SINGULAIR) 10 mg tablet^Take 10 mg by mouth daily at bedtime. ^Disp: ^Rfl: fexofenadine HCl (ERNESTINE ORAL)^Take by mouth as needed. ^Disp: ^Rfl: Omeprazole 20 mg TbEC^Take 1 tablet by mouth once daily as needed.^Disp: ^Rfl: calcium citrate/vitamin D3 (CALCIUM CITRATE + D ORAL)^Take 1 tablet by mouth once daily. ^Disp: ^Rfl: Doxycycline Monohydrate 40 mg capsule^Take 40 mg by mouth twice daily. ^Disp: ^Rfl: hydrOXYchloroQUINE (PLAQUENIL) 200 mg tablet^Take 200 mg by mouth once daily. ^Disp: ^Rfl: PHYSICAL EXAM: General: Well developed, well nourished in no apparent distress BP 111/75 (BP Position: Sitting) Pulse 80 Temp 36.6 C (97.8 F) (Temporal) Resp 24 Wt 51.3 kg (113 lb) LMP 03/23/2020 SpO2 99% BMI 19.77 kg/m Head: Normal cephalic Eyes: Conjunctiva noninjected, sclera anicteric, EOMI, lacrimal glands normal ENT: No sinus tenderness, tympanic membranes with normal light reflex, nares patent without discharge, polyps or crusting, oral pharynx without lesions. Good dentition. Normal salivary pooling. Neck: Supple without lymphadenopathy, thyromegaly, JVD or bruit Chest: +faint bibasilar cracklesNormal I:E. Normal to percussion Normal chest expansion Cardiac: Regular rate and rhythm, without murmurs, gallops or rubs. 2+ peripheral pulses Abdomen: Normal bowel sounds. Soft, non-tender, non-distended without hepatomegaly or mass Extremities: No clubbing, cyanosis or edema Musculoskeletal: No synovitis Skin/hair: No rash or suspicious lesions. Normal hair pattern and texture Neurologic: Strength 5/5 proximally and distally and symmetric. Otherwise, grossly normal Lymphadenopathy: none DATA REVIEWED (independently reviewed by myself) Laboratory Data Laboratory data reviewed in [facility] and Care Everywhere. Gabriel 1:1280 positve ladle mechanic ab GABRIEL GABRIEL (no units) Date Value 01/12/2022 Positive 04/22/2008 Positive GABRIEL by EIA (OD Ratio) Date Value 06/24/2020 15.3 Rheumatoid Factor Rheumatoid Factor (IU/mL) Date Value 04/22/2008 13 TSH TSH (uU/mL) Date Value 05/15/2020 1.460 HIV No results found for: HIVSCN, [id number] Hepatitis B Surface Antigen No results found for: HBSAGR Hepatitis C No results found for: HEPCABEIA NT PRO BNP No results found for: PBNP Chemistries Lab Results Component Value Date NA 138 03/20/2021 NA 136 03/27/2020 NA 136 06/08/2018 K 4.1 03/20/2021 K 4.4 03/27/2020 K 4.0 06/08/2018 CHLOR 99 03/20/2021 CHLOR 102 03/27/2020 CHLOR 103 06/08/2018 CO2 27 03/20/2021 CO2 26 03/27/2020 CO2 26 06/08/2018 BUN Unable to assay. No specimen received. 03/20/2021 BUN 13 03/20/2021 BUN 12 09/23/2020 CREAT 0.72 01/12/2022 CREAT Unable to assay. No specimen received. 03/20/2021 CREAT 0.72 03/20/2021 GLUC 66 (L) 03/20/2021 GLUC 85 03/27/2020 GLUC 81 06/08/2018 ANION 12 03/20/2021 ANION 8 (L) 03/27/2020 ANION 7 (L) 06/08/2018 Liver Function Lab Results Component Value Date AST 20 01/12/2022 AST 22 12/11/2021 AST 21 10/27/2021 ALT 12 01/12/2022 ALT 14 12/11/2021 ALT 12 10/27/2021 ALKPHOS 90 12/11/2021 ALKPHOS 93 10/27/2021 ALKPHOS 87 08/31/2021 TBILI 0.3 12/11/2021 TBILI 0.6 10/27/2021 TBILI 0.4 08/31/2021 CBC Lab Results Component Value Date HB 13.2 01/12/2022 HB 12.3 12/11/2021 HB 12.3 10/27/2021 HCT 39.6 01/12/2022 HCT 37.1 12/11/2021 HCT 36.8 10/27/2021 WBC 4.53 01/12/2022 WBC 4.19 12/11/2021 WBC 4.91 10/27/2021 PLT 165 01/12/2022 PLT 165 12/11/2021 PLT 170 10/27/2021 Pulmonary Function Data PFT available: Yes. PFT results moderately severe restriction with moderate diffusion impairment. Date FVC FEV1 FEV1/FVC TLC DLCO 12/01/2020 1.92/52 1.64/54 85 11.6/49 Outside labs Date FVC FEV1 FEV1/FVC TLC DLCO 11/2021 1.99/54 45 09/2021 1.73/47 43 05/2021 2.04/65 55 11/2020 1.98/53 49 03/2020 1.85/50 51 61 Six minute walk Six minute walk available: No Radiology Data CT chest 01/18/2022 Lines, tubes, and devices: None. Lung parenchyma and airways: Stable chronic changes with fibrosis most pronounced at the lung bases with reticular pattern. Similar findings are seen anteriorly within the upper lobes. No consolidation. No suspicious pulmonary nodule. The central airways are patent. Pleural space: No pleural effusion. No pleural thickening. Lower neck, lymph nodes, and mediastinum: The imaged thyroid gland is normal. Multiple prominent axillary lymph nodes, more so on the left, measuring up to 1 cm, stable. Evaluation for mediastinal/hilar adenopathy is compromised by noncontrast images. Heart, pericardium, and thoracic vessels: The thoracic aorta and main pulmonary artery are normal in caliber. The cardiac chambers are normal in size. No coronary artery atherosclerotic calcifications are noted, although the study is not optimized for coronary assessment. No pericardial effusion or thickening. Air-filled dilated esophagus, with air-fluid level within it. This may be related to scleroderma. Bones and soft tissues: No destructive bone lesion. Chest wall is unremarkable. Upper abdomen: No abnormality in the imaged upper abdomen. Nonobstructing left renal calculus. [facility] Professional (topogram) images: No additional findings. Echocardiogram Was an echo performed?: Yes 01/08/2022 CONCLUSIONS: - Exam indication: Suspected pulmonary hypertension - The left ventricle is normal in size. Left ventricular systolic function is normal. EF = 66 5% (2D biplane) Normal left ventricular diastolic function. - The right ventricle is normal in size. Right ventricular systolic function is normal. Estimated right ventricular systolic pressure is 18 mmHg consistent with normal pulmonary artery pressures. Estimated right atrial pressure is 3 mmHg based on IVC assessment. - Exam was compared with the prior echocardiographic exam performed on 05/19/2020 ([facility] There is no significant change. 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 Her serologies are consistent with MCTD/SLE and she has some features (dilated esophagus, puffy fingers and Raynauds with digital ulcer) of scleroderma as well. CT chest shows UIP pattern. While her PFTs show a moderate to moderately severe impairment, she has very little functional impairment. PFTs are also showing stability over time. She has had a CTD diagnosis for some time, and Dr. De Luna is of the mind that this will be likely to show a very stable course. We are in agreement with use of azathioprine. Can use rituximab infusion or consideration of nintedanib or tocilizumab,with further progression. Echo shows no evidence of PH PLAN continue azathioprine 100mg daily Agree with rituximab with progression. Could also consider nintedanib or tocilizumab Will schedule Mony at [facility] Follow-up Dr. Rene as scheduled All questions were answered to Tamy Vazquez's satisfaction, Tamy Vazquez verbalizes understanding and agrees with treatment plan and was encouraged to contact me with questions Madison Weller APRN.MALE INFERTILITY SPECIALIST Staffed with Dr. Kacie De Luna I spent 60 minutes face to face with the patient. >50% of that time was spent counseling and coordinating care regarding interpretation of symptoms and tests and diagnostic and therapeutic options. All questions were answered to Tamy Vazquez's satisfaction, Tamy Vazquez verbalizes understanding and agrees with treatment plan and was encouraged to contact me with questions This note was generated with voice recognition software and may contain errors, including spelling, grammar, syntax and misrecognition of what was dictated, that are not fully corrected. INTERSTITIAL LUNG DISEASE DATABASE CHECKLIST Referring diagnosis: MCTD: Mixed connective tissue disease Date of symptom onset: 1999 Date of Diagnosis: Diagnosis confirmed by: Clinical CT Serology Treating diagnosis: MCTD: Mixed connective tissue disease , Scleroderma-ILD, SLE-ILD: Systemic lupus erythematosus Biopsy confirmed?: No Was the patient discussed at a multidisciplinary discussion?: No Immediate relative with ILD: None Current ILD medications: Azathioprine, Plaquenil Past ILD medications: MTX ILD medications at end of visit: Azathioprine, Plaquenil Is the patient being treated with oxygen therapy?: No Does the patient have pulmonary hypertension: No Is the patient being referred for transplantation?: No CC: PCP: MD Mony Ivey (tixagevimab/cilgavimab) Eligibility and Patient Discussion [facility] Formulary Restriction Criteria: Outpatient adults and pediatrics 12 years and older and > 40 kg with ALL of the following: [x] COVID test scheduled: No Date: TBD, type of test:Home antigen [x] Patient has not been exposed to a SARS-COV-2 positive individual ([facility] information on COVID exposure link) [x] Patient is not exhibiting symptoms of SARS-COV-2 infection [x] Patient is able to come in to the clinic for the Evusheld injection [x] Meeting at least one criteria below: [] Active treatment for solid tumor and hematologic malignancies [] Receipt of solid-organ transplant and taking immunosuppressive therapy [] Receipt of chimeric antigen receptor (CAR)-T-cell or hematopoietic stem cell transplant (within 2 years of transplantation or taking immunosuppressive therapy) [] Moderate or severe primary immunodeficiency (e.g. DiGeorge syndrome, Wiskott-Aldrick syndrome) [] Advanced or untreated HIV infection (people with HIV and CD4 cell counts < 200/mm3, history of an AIDS-defining illness without immune reconstitution, or clinical manifestations of symptomatic HIV) [x] Active treatment with high-dose corticosteroids (i.e., >20 mg prednisone or equivalent per day when administered for > 2 weeks), alkylating agents, antimetabolites, transplant-related immunosuppressive drugs, cancer chemotherapeutic agents classified as severely immunosuppressive, and other biologic agents that are significantly immunosuppressive (e.g., B-cell depleting agents, cyclophosphamide) [x] Other moderate to severely immunocompromising condition: MCTD, lupus [] Patients for whom vaccination with any COVID-19 vaccine, according to the approved or authorized schedule, is not recommended due to a history of severe adverse reaction (e.g. severe allergic reaction) to a COVID-19 vaccine(s) and/or COVID-19 vaccine components Criteria above are met: Yes Patient received COVID vaccine: Yes Last dose of COVID vaccine is greater than 14 days prior to the planned injection date of Evusheld: Yes Laboratory and comorbidity assessment: Platelet Count (k/uL) Date Value 01/12/2022 165 12/11/2021 165 Last platelet count greater than 20 k/uL: Yes. If on warfarin, most recent INR should be within therapeutic range: confirmed Cardiovascular disease history: No. I have discussed the use of the investigational therapeutic, Evusheld (tixagevimab/cilgevimab), for pre-exposure prophylaxis of COVID-19 infection and its use under Emergency Use Authorization with the patient. The patient was informed that tixagevimab/cilgevimab is not an FDA approved drug and that it is authorized for use under this Emergency Use Authorization. The patient was also informed of the significant known benefits and potential risks of tixagevimab/cilgevimab, and the extent to which such potential risks and benefits are unknown. The patient was informed that there is mandatory reporting of all medication errors and serious adverse events potentially related to tixagevimab/cilgevimab treatment within 7 calendar days from the onset of the event. The discussion included alternatives to receiving tixagevimab/cilgevimab, including clinical trials, and potential the risks and benefits of those alternatives. The patient was provided electronically with the Fact Sheet for Patients, Parents and Caregivers. The patient stated understanding and gave verbal consent to proceeding with tixagevimab/cilgevimab treatment. Madison Weller APRN.CNP January 21, 2022 11:42 AM documented in this encounter [facility] 01-18-2022 History of Present illness Narrative Radiology Service Progress Note PATIENT NAME: Tamy Vazquez DATE OF SERVICE: January 18, 2022 TIME: 1:02 PM PATIENT IDENTITY VERIFICATION COMPLETED USING TWO (2) IDENTIFIERS: Name and Date of confirmed by patient verbally. FALL SCREENING: Has the patient had 2 falls in the last year or 1 fall with injury or currently using an Ambulatory Assistive Device (Walker, Cane, Wheelchair, Crutches, etc.)? No PATIENT GENDER DATA: Female. status: : No status: NO. PATIENT RELEVANT IMPLANT DATA REVIEWED: Not Applicable RADIOLOGY DEPARTMENT: CT; Exam(s) Completed: Chest PERIPHERAL IV DATA: Not applicable SIGNED BY: RT Opal(R) January 18, 2022 1:02 PM documented in this encounter [facility] 12-30-2021 Instructions Candie Duron MD - 12/30/2021 10:[address] Joslyn Carrion documented in this encounter [facility] 12-30-2021 History of Present illness Narrative Data Compiler offered: Patient declines. Dhaliwal is a 41 year old who presents for an annual gynecologic exam without complaints. Menses: No menses. Diagnosed with premature ovarian insufficiency by Dr. Evans in 2019 - Blood work 2019 - fragile X negative - DEXA 2017 osteoporosis - following with endo Contraception: none HPV vaccine: N/A Last Pap: 12/05/2017 normal HPV: 11/30/2017 negative History of abnormal pap: Yes - ASCUS in 2016 and negative HPV Last mammogram: 10/2020 in [facility], she reports having one done a few months ago at outside location Sexually active: Yes Patient concerns for STD exposure: No. Hot flashes: No Night sweats: No Vaginal dryness: No OB History T0 L2 SAB0 IAB0 Ectopic0 Multiple1 Live Births2 Vice Chair History LMP: 03/23/2020, Having periods Age at Menarche: Age at First : Age at Menopause: Vice Chair History Comments: Sexual Activity: Yes; Male Contraception: None PAST MEDICAL HISTORY Diagnosis Date Acute appendicitis 04/06/2021 Asthma Chronic Nonallergic Rhinitis 06/12/2009 Endometriosis, site unspecified Endometriosis Esophageal reflux Menorrhagia Peripheral vascular disease (HCC) Personal history of unspecified urinary disorder PMH - PAST MEDICAL HISTORY OF hypercoaguable state PMH - PAST MEDICAL HISTORY OF 04/18/2005 blood clot internal jugular vein, 4 weeks diagnosed Protein S deficiency (HCC) 05/19/2002 cavernous sinus thrombosis 4 week Raynaud's syndrome Rib fracture 06/19/2014 PAST SURGICAL HISTORY Procedure Laterality Date EMBOLIZATION UTERINE FIBROID 03/18/2013 L'SCOPE DX W/WO BRUSHINGS/WASHINGS 04/18/2004 Laparoscopy for endometriosis at [place] Dr Soliman at [facility], no control afterward, ++relief and + relief with surgery, laser LAPAROSCOPY, SURGICAL, APPENDECTOMY 03/30/2021 FAMILY HISTORY Problem Relation Age of Onset other (hysterectomy) Mother Hypertension Father Diabetes Father Heart Paternal Grandfather SOCIAL HISTORY Social History Tobacco Use Smoking status: Never Smokeless tobacco: Never Vaping Use Vaping Use: Never used Substance Use Topics Alcohol use: Yes Alcohol/week: 5.0 standard drinks Types: 2 Glasses of Wine (5oz) per week Drug use: No REVIEW OF SYSTEMS Abdomen: No abdominal pain, nausea, vomiting, diarrhea, or constipation. Bladder: No dysuria, gross hematuria, urinary frequency, urinary urgency, or incontinence. Breast: No breast lumps, nipple d/c, overlying skin changes, redness or skin retraction. Allergies and current medication updated:Yes EXAM: LMP 03/23/2020 GENERAL: pleasant female in no apparent distress HEENT: Normocephalic, atraumatic, mucus membranes moist, and no lesions NECK: Supple, full range of motion, no adenopathy, and thyroid normal DERMATOLOGY: Normal, without lesions, non-icteric, and non-hirsute BREAST: soft, non-tender, symmetric, no dominant mass, normal nipple-areolar complex, no lymphadenopathy, and no nipple discharge CHEST: Normal inspiratory effort ABDOMEN: soft, non-tender, and no masses PELVIC: external genitalia normal, normal Bartholin's glands, urethra, [place]'s glands, no vulvar lesions, no cervical lesions, good vaginal support, physiologic discharge present, normal appearing perineal body and perianal region, vaginal atrophy noted BIMANUAL: uterus normal size, shape and consistency, no adnexal masses, and non-tender RECTOVAGINAL: deferred. NEURO: exam grossly non-focal EXTREMITIES: normal ASSESSMENT/PLAN: 1) Health maintenance: Pap/HPV up to date. Mammogram ordered. Nutrition, exercise and routine health maintenance exams reviewed. Premature ovarian insufficiency. Had workup with Dr. Evans in 2019. Following with endocrinology. Recommend consultation with Dr. Joslyn Carrion. 2) Contraception: none. Contraceptive options reviewed and information provided. 3) STD screening: Declined STD check. 4) Follow up one year or sooner as needed Candie Duron DO documented in this encounter [facility] 12-22-2021 History of Present illness Narrative VIRTUAL VISIT PROGRESS NOTE This is a virtual visit using [employer] video visit. It required patient-provider interaction for the medical decision making as documented below. Tamy Vazquez is a 41 year old female seen for MCTD--ILD. Patient had covid-sprimg 2021--no respiratory manifestations. Shortly thereafter patient had scheduled fup--PFTS with signficant decline. Patient ahd fup pfts in November 2021--still with decline compared to may 2021 but improved over PFT in September. Patient remains minimally symptomatic from Resp standpoint. Stable MRC scale 2 symptoms HISTORY REVIEWED (electronic chart updated): PAST MEDICAL HISTORY Diagnosis Date Acute appendicitis 04/06/2021 Asthma Chronic Nonallergic Rhinitis 06/12/2009 Endometriosis, site unspecified Endometriosis Esophageal reflux Menorrhagia Peripheral vascular disease (HCC) Personal history of unspecified urinary disorder PMH - PAST MEDICAL HISTORY OF hypercoaguable state PMH - PAST MEDICAL HISTORY OF 04/18/2005 blood clot internal jugular vein, 4 weeks diagnosed Protein S deficiency (HCC) 05/19/2002 cavernous sinus thrombosis 4 week Raynaud's syndrome Rib fracture 06/19/2014 PAST SURGICAL HISTORY Procedure Laterality Date EMBOLIZATION UTERINE FIBROID 03/18/2013 L'SCOPE DX W/WO BRUSHINGS/WASHINGS 04/18/2004 Laparoscopy for endometriosis at [place] Dr Soliman at [facility], no control afterward, ++relief and + relief with surgery, laser LAPAROSCOPY, SURGICAL, APPENDECTOMY 03/30/2021 FAMILY HISTORY Problem Relation Age of Onset other (hysterectomy) Mother Hypertension Father Diabetes Father Heart Paternal Grandfather Social History Tobacco Use Smoking status: Never Smokeless tobacco: Never Vaping Use Vaping Use: Never used Substance Use Topics Alcohol use: Yes Alcohol/week: 5.0 standard drinks Types: 2 Glasses of Wine (5oz) per week Drug use: No Current Outpatient Medications Medication Sig cephALEXin (KEFLEX) 500 mg capsule TAKE 1 CAPSULE BY MOUTH TWICE A DAY FOR 10 DAYS lansoprazole (PREVACID) 30 mg capsule Take by mouth. ketoconazole (NIZORAL) 2 % shampoo Ketoconazole 2 % External Shampoo WASH THE SCALP DAILY - LATHER - LEAVE ON FOR 3-5 MINUTES, THEN RINSE Quantity: 120 Refills: 0 Ordered: 29-Jul-2020 DO Start : 14-Jan-2020 Complete Spirometers and Accessories gary 1 Device four times daily. azaTHIOprine (IMURAN) 50 mg tablet take 1 tablet by mouth once daily warfarin (COUMADIN) 1 mg tablet take 2 & 1/2 tablets by mouth once daily warfarin (COUMADIN) 2 mg tablet Take 1.5 tablets by mouth daily as directed. montelukast (SINGULAIR) 10 mg tablet Take 10 mg by mouth daily at bedtime. fexofenadine HCl (ERNESTINE ORAL) Take by mouth as needed. Omeprazole 20 mg TbEC Take 1 tablet by mouth once daily as needed. calcium citrate/vitamin D3 (CALCIUM CITRATE + D ORAL) Take 1 tablet by mouth once daily. Doxycycline Monohydrate (ORACEA) 40 mg capsule Take 40 mg by mouth twice daily. hydroxychloroquine (PLAQUENIL) 200 mg tablet Take 200 mg by mouth once daily. Current Facility-Administered Medications Medication Dose Route Frequency perflutren lipid microspheres 1.3 mL in NaCl (PF) 0.9% 10 mL injection (DEFINITY) INTRAVENOUS DIRECTED PRN sodium chloride 0.9 % (flush) 10 mL (BD POSIFLUSH) 10 mL INTRAVENOUS DIRECTED PRN ALLERGIES Allergen Reactions Amerigel [Zinc Acet* Daniel burning at area Cefdinir Other: See Comments Dizzy Flagyl [Metronidazo* Intolerance, GI Upset Nausea, fatigue, poor appetite REVIEW OF SYSTEMS: GENERAL: feeling well without fatigue, no recent change in weight HEENT: denies GREEN, change in hearing or vision, no other ENT complaints NECK: denies swelling or pain in neck RESPIRATORY: no cough, no wheezing or shortness of breath CARDIOVASCULAR: no chest pain, no palpitations GI: normal appetite, tolerating PO well, BMs normal, and no abdominal pain PHYSICAL EXAMINATION: VIDEO EXAM: (if completed, performed via video enabled technology) GENERAL: alert and appropriate, in no distress, well-hydrated, well nourished, and happy, smiling, interactive SKIN: no rash noted HEAD: normocephalic, no abnormality or lesion noted EYES: no injection and visual acuity is grossly normal OROPHARYNX: moist mucus membranes NECK: full ROM, no cervical LNs noted RESPIRATORY: breathing non-labored DATA DATA REVIEWED (independently reviewed by myself) 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 September 2020-cbc and hepatic wnl Pulmonary Function Data PFT available: Yes. PFT results Outside hospital-mar 2020 fvc-50%-1.85liters fev1-51% dlco -61%. 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--patient has been unable to take cellcept due to intolerance--doing well with low dose imuran--there has been decline in pfts--but no clinical manifestations of this decline--Most recent PFts with some improvmeent compared to September but still decline since may 2021 2.moderate restricitve lung disasease--54%FVC, 45%dlco 3.CHAVES-stable 4.Hiatal hernia-large--had manometry 2020--evidence of decreased esophageal conractility but no GERD 5.MCTD--esophageal dilation as well as ILD--no evidence of pulm htn 6.intermediate tpmt activity--has been on low dose imuran accordingly PLAN: 1.patient with some decline in PFTS-will reimage with hrct and also check echo 2.increase imuran to 100 mg daily 3.check cbc again in 2 weeks 4.patient will see in her clinic as well--d/w Dr. De Luna 5. For now infusion therapy (Toci or rituxan) not being intiated 6. Fup with me in 3-4 months--and fup with as well There are no Patient Instructions on file for this visit. I spent a total of 32 minutes on the date of the service which included preparing to see the patient, completing clinical documentation, obtaining and/or reviewing separately obtained history, counseling and educating the patient/family/caregiver, communicating with other HCPs (not separately reported), and care coordination (not separately reported) Alan Rene MD documented in this encounter [facility] 12-14-2021 History of Present illness Narrative PULM FUNCTION SMARTBLOCK: Provider: Alan Rene MD Spirometry: 1 DLCO: 1 documented in this encounter [facility] 10-12-2021 History of Present illness Narrative Images from the original note were not included. Respiratory [place] Tamy Vazquez is a 41 year old female here for a follow up with the [facility] Interstitial Lung Disease Team. HISTORY OF PRESENT ILLNESS: patient mctd--ILD . Hd coid spring 2021-no respiratory manifestations Is not noticing any change in resp symptoms REVIEW OF SYSTEMS: MRC Dyspnea Scale: 2. Short of breath when hurrying or walking up a slight hill All others per history of present illness or otherwise negative on detailed 14 point review. PAST MEDICAL HISTORY Diagnosis Date Acute appendicitis 04/06/2021 Asthma Chronic Nonallergic Rhinitis 06/12/2009 Endometriosis, site unspecified Endometriosis Esophageal reflux Menorrhagia Peripheral vascular disease (HCC) Personal history of unspecified urinary disorder PMH - PAST MEDICAL HISTORY OF hypercoaguable state PMH - PAST MEDICAL HISTORY OF 04/18/2005 blood clot internal jugular vein, 4 weeks diagnosed Protein S deficiency (HCC) 05/19/2002 cavernous sinus thrombosis 4 week Raynaud's syndrome Rib fracture 06/19/2014 PAST SURGICAL HISTORY Procedure Laterality Date EMBOLIZATION UTERINE FIBROID 03/18/2013 L'SCOPE DX W/WO BRUSHINGS/WASHINGS 04/18/2004 Laparoscopy for endometriosis at [place] Dr Soliman at [facility], no control afterward, ++relief and + relief with surgery, laser LAPAROSCOPY, SURGICAL, APPENDECTOMY 03/30/2021 SOCIAL HISTORY: Social History Tobacco Use Smoking status: Never Smoker Smokeless tobacco: Never Used Alcohol Use: Approximately 3 oz/week [which includes 2 Glasses of Wine (5oz) per week] Drug Use: No FAMILY HISTORY Problem Relation Age of Onset other (hysterectomy) Mother Hypertension Father Diabetes Father Heart Paternal Grandfather ALLERGIES Allergen Reactions Amerigel [Zinc Acet* Daniel burning at area Cefdinir Other: See Comments Dizzy Flagyl [Metronidazo* Intolerance, GI Upset Nausea, fatigue, poor appetite CURRENT MEDICATIONS cephALEXin (KEFLEX) 500 mg capsule TAKE 1 CAPSULE BY MOUTH TWICE A DAY FOR 10 DAYS lansoprazole (PREVACID) 30 mg capsule Take by mouth. ketoconazole (NIZORAL) 2 % shampoo Ketoconazole 2 % External Shampoo WASH THE SCALP DAILY - LATHER - LEAVE ON FOR 3-5 MINUTES, THEN RINSE Quantity: 120 Refills: 0 Ordered: 29-Jul-2020 DO Start : 14-Jan-2020 Complete azaTHIOprine (IMURAN) 50 mg tablet take 1 tablet by mouth once daily warfarin (COUMADIN) 1 mg tablet take 2 & 1/2 tablets by mouth once daily warfarin (COUMADIN) 2 mg tablet Take 1.5 tablets by mouth daily as directed. montelukast (SINGULAIR) 10 mg tablet Take 10 mg by mouth daily at bedtime. fexofenadine HCl (ERNESTINE ORAL) Take by mouth as needed. Omeprazole 20 mg TbEC Take 1 tablet by mouth once daily as needed. calcium citrate/vitamin D3 (CALCIUM CITRATE + D ORAL) Take 1 tablet by mouth once daily. Doxycycline Monohydrate (ORACEA) 40 mg capsule Take 40 mg by mouth twice daily. hydroxychloroquine (PLAQUENIL) 200 mg tablet Take 200 mg by mouth once daily. Spirometers and Accessories gary 1 Device four times daily. PHYSICAL EXAM: BP 97/73 Pulse 71 Temp 98.1 Resp 20 Ht 5' 4 (1.63m) Wt 113 lb (51.3kg) SpO2 100% LMP 03/23/2020 BMI 19.39 kg/(m^2). alert and oriented times three rrr Lungs-clear bilaterally abd -benign--no distress Ext-no lubbing orphryanx clear Gait intact Appears as stated age DATA REVIEWED (independently reviewed by myself) 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 September 2020-cbc and hepatic wnl Pulmonary Function Data PFT available: Yes. PFT results Outside hospital-mar 2020 fvc-50%-1.85liters fev1-51% dlco -61%. pfts-november 2020 fvc-1.98 liters (53%)-dlco 49% pfts-may 2021 fvc-2.04 liters--65% dlco-55% PFT--September 2021-- fvc-1.73 liters-47% dlco-43% Six minute walk Six minute walk available: No Radiology Is a CT scan available?: Standard CT available Reviewed by mi-mar 2020--fibrotic disease predominantly bases--UIP type pattern Enlarged esophagus Echocardiogram Was an echo performed?: yes May 2020--normal lv/rv-no evidence of pum htn Heart Catheterization Was a right heart catheterization performed?: No Pathology ASSESSMENT Tamy Vazquez is a 41 year old female with MCTD-ILD PLAN Treating diagnosis: MCTD: Mixed connective tissue disease ILD medications at end of visit: Azathioprine Follow-up 4-5months ILD CHECKLIST Was the patient discussed at a multidisciplinary discussion?: No Is the patient being treated with oxygen therapy?: No Does the patient have pulmonary hypertension: No suspicion Is the patient being referred for transplantation?: No IMP/PLAN .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--clinically stable--patient however has been off of cellcept due to intolerance--doing well with low dose imuran--there has been decline in pfts--but no clinical manifestations of this decline 2.moderate restricitve lung disasease--47%FVC, 43%dlco 3.CHAVES-stable 4.Hiatal hernia-large--had recent manometry--evidence of decreased esophageal conractility but no GERD 5.MCTD--esophageal dilation as well as ILD--no evidence of pulm htn 6.intermediate tpmt activity--low dose imuran accordingly PLAN 1.cont imuran 50mg daily 2.fup 2 months with pfts 3.discussed possible rituxan if pfts arent improving 4.patient had significant adverse effects from cellcept--and with intermediate TPMT activitry,increasing imuran is also somewhat problematic Alan Rene MD CC: documented in this encounter [facility] 08-10-2021 Miscellaneous Notes Patient called--out of imuran-leaving for [facility] Imuran refilled-patient notified documented in this encounter [facility] 05-09-2021 History of Present illness Narrative TAMY is here for pink eye. started about 3 days ago. Thought she was allergic to mascara at first. Then she states that she was in a restaurant where they had a lot of smoke and irritation in her eyes started since then. Feels a little bit better had some crusting in her eyes this morning but it was clear however no further discharge noted. Has some redness has not used any eyedrops is still continuing to use her contact lenses.duration:3 dayseye affected: botheye discharge: clearlid crusting/matter: yeseye itching: botheye painful: noinjury - poke or something got in eye: nolight sensitive: noblurred vision: noif so check vision on chart:contact use?:- yestreatment: none cold compress -[facility] Work Phone: 02-08-2018 History of Past i llness Narrative Problem Noted Date Resolved Date Metrorrhagia 02/08/2018 08/12/2022 Overview: Added automatically from request for surgery [id number] Pelvic pain in female 04/25/2013 12/29/2017 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 Phlebitis and thrombophlebitis of other site 08/12/2022 documented as of this encounter (statuses as of 08/12/2022) [facility] History of Past illness Narrative* Problem Noted Date Resolved Date Metrorrhagia 02/08/2018 08/12/2022 Overview: Added automatically from request for surgery [id number] Pelvic pain in female 04/25/2013 12/29/2017 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 Phlebitis and thrombophlebitis of other site 08/12/2022 documented as of this encounter (statuses as of 08/12/2022) [facility] History of Past illness Narrative* Problem Noted Date Resolved Date Metrorrhagia 02/08/2018 08/12/2022 Overview: Added automatically from request for surgery [id number] Pelvic pain in female 04/25/2013 12/29/2017 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 Phlebitis and thrombophlebitis of other site 08/12/2022 documented as of this encounter (statuses as of 08/26/2022) [facility] History of Past illness Narrative* Problem Noted Date Resolved Date Metrorrhagia 02/08/2018 08/12/2022 Overview: Added automatically from request for surgery [id number] Pelvic pain in female 04/25/2013 12/29/2017 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 Phlebitis and thrombophlebitis of other site 08/12/2022 documented as of this encounter (statuses as of 09/21/2022) [facility] History of Past illness Narrative* Problem Noted Date Resolved Date Metrorrhagia 02/08/2018 08/12/2022 Overview: Added automatically from request for surgery [id number] Pelvic pain in female 04/25/2013 12/29/2017 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 Phlebitis and thrombophlebitis of other site 08/12/2022 documented as of this encounter (statuses as of 10/22/2022) [facility] of Past illness Narrative* Problem Noted Date Resolved Date Metrorrhagia 02/08/2018 08/12/2022 Overview: Added automatically from request for surgery [id number] Pelvic pain in female 04/25/2013 12/29/2017 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 Phlebitis and thrombophlebitis of other site 08/12/2022 documented as of this encounter (statuses as of 10/22/2022) [facility] of [facility] Narrative* Problem Noted Date Diagnosed Date Resolved Date Metrorrhagia 02/08/2018 08/12/2022 Overview: Added automatically from request for surgery [id number] Pelvic pain in female 04/25/20132017 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/2008 1 06/08/2009 Phlebitis and thrombophlebitis of other site 8 08/12/2022 documented as of this encounter (statuses as of 11/12/2022) [facility] of Past [facility] Narrative* Problem Noted Date Diagnosed Date Resolved Date Metrorrhagia 02/08/2018 08/12/2022 Overview: Added automatically from request for surgery [id number] Pelvic pain in female 04/25/20132017 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/2008 1 06/08/2009 Phlebitis and thrombophlebitis of other site 8 08/12/2022 documented as of this encounter (statuses as of 12/13/2022) [facility] of [facility] Narrative* Problem Noted Date Diagnosed Date Resolved Date Metrorrhagia 02/08/2018 08/12/2022 Overview: Added automatically from request for surgery [id number] Pelvic pain in female 04/25/20132017 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/2008 1 06/08/2009 Phlebitis and thrombophlebitis of other site 8 08/12/2022 documented as of this encounter (statuses as of 12/14/2022) [facility] Narrative* Problem Noted Date Diagnosed Date Resolved Date Metrorrhagia 02/08/2018 08/12/2022 Overview: Added automatically from request for surgery [id number] Pelvic pain in female 04/25/20132017 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/2008 1 06/08/2009 Phlebitis and thrombophlebitis of other site 8 08/12/2022 documented as of this encounter (statuses as of 12/16/2022) [facility] Narrative* Problem Noted Date Diagnosed Date Resolved Date Metrorrhagia 02/08/2018 08/12/2022 Overview: Added automatically from request for surgery [id number] Pelvic pain in female 04/25/20132017 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/2008 1 06/08/2009 Phlebitis and thrombophlebitis of other site 8 08/12/2022 documented as of this encounter (statuses as of 02/20/2023) [facility] Narrative* Problem Noted Date Diagnosed Date Resolved Date Metrorrhagia 02/08/2018 08/12/2022 Overview: Added automatically from request for surgery [id number] Pelvic pain in female 04/25/20132017 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/2008 1 06/08/2009 Phlebitis and thrombophlebitis of other site 8 08/12/2022 documented as of this encounter (statuses as of 02/20/2023) [facility] Narrative* Problem Noted Date Diagnosed Date Resolved Date Metrorrhagia 02/08/2018 08/12/2022 Overview: Added automatically from request for surgery [id number] Pelvic pain in female 04/25/20132017 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/2008 1 06/08/2009 Phlebitis and thrombophlebitis of other site 8 08/12/2022 documented as of this encounter (statuses as of 02/23/2023) [facility] Narrative* Problem Noted Date Diagnosed Date Resolved Date Metrorrhagia 02/08/2018 08/12/2022 Overview: Added automatically from request for surgery [id number] Pelvic pain in female 04/25/20132017 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/2008 1 06/08/2009 Phlebitis and thrombophlebitis of other site 8 08/12/2022 documented as of this encounter (statuses as of 02/23/2023) [facility] Narrative* Problem Noted Date Diagnosed Date Resolved Date Metrorrhagia 02/08/2018 08/12/2022 Overview: Added automatically from request for surgery [id number] Pelvic pain in female 04/25/20132017 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/2008 1 06/08/2009 Phlebitis and thrombophlebitis of other site 8 08/12/2022 documented as of this encounter (statuses as of 02/23/2023) [facility] Narrative* Problem Noted Date Diagnosed Date Resolved Date Metrorrhagia 02/08/2018 08/12/2022 Overview: Added automatically from request for surgery [id number] Pelvic pain in female 04/25/20132017 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/2008 1 06/08/2009 Phlebitis and thrombophlebitis of other site 8 08/12/2022 documented as of this encounter (statuses as of 02/24/2023) [facility] Narrative* Problem Noted Date Diagnosed Date Resolved Date Metrorrhagia 02/08/2018 08/12/2022 Overview: Added automatically from request for surgery [id number] Pelvic pain in female 04/25/20132017 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/2008 1 06/08/2009 Phlebitis and thrombophlebitis of other site 8 08/12/2022 documented as of this encounter (statuses as of 03/22/2023) [facility] Narrative* Problem Noted Date Diagnosed Date Resolved Date Metrorrhagia 02/08/2018 08/12/2022 Overview: Added automatically from request for surgery [id number] Pelvic pain in female 04/25/20132017 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/2008 1 06/08/2009 Phlebitis and thrombophlebitis of other site 8 08/12/2022 documented as of this encounter (statuses as of 03/31/2023) [facility] Narrative* Problem Noted Date Diagnosed Date Resolved Date Metrorrhagia 02/08/2018 08/12/2022 Overview: Added automatically from request for surgery [id number] Pelvic pain in female 04/25/20132017 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/2008 1 06/08/2009 Phlebitis and thrombophlebitis of other site 8 08/12/2022 documented as of this encounter (statuses as of 03/31/2023) [facility] Narrative* Problem Noted Date Diagnosed Date Resolved Date Metrorrhagia 02/08/2018 08/12/2022 Overview: Added automatically from request for surgery [id number] Pelvic pain in female 04/25/20132017 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/2008 1 06/08/2009 Phlebitis and thrombophlebitis of other site 8 08/12/2022 documented as of this encounter (statuses as of 07/29/2023) [facility] Narrative* Problem Noted Date Resolved Date Pelvic pain in female 04/25/2013 12/29/2017 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 documented as of this encounter (statuses as of 08/11/2021) [facility] Narrative* Problem Noted Date Resolved Date Pelvic pain in female 04/25/2013 12/29/2017 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 documented as of this encounter (statuses as of 08/11/2021) [facility] Narrative* Problem Noted Date Resolved Date Pelvic pain in female 04/25/2013 12/29/2017 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 documented as of this encounter (statuses as of 08/11/2021) [facility] Narrative* Problem Noted Date Resolved Date Pelvic pain in female 04/25/2013 12/29/2017 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 documented as of this encounter (statuses as of 10/12/2021) [facility] Narrative* Problem Noted Date Resolved Date Pelvic pain in female 04/25/2013 12/29/2017 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 documented as of this encounter (statuses as of 12/14/2021) [facility] Narrative* Problem Noted Date Resolved Date Pelvic pain in female 04/25/2013 12/29/2017 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 documented as of this encounter (statuses as of 12/22/2021) [facility] Narrative* Problem Noted Date Resolved Date Pelvic pain in female 04/25/2013 12/29/2017 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 documented as of this encounter (statuses as of 12/30/2021) [facility]arr[facility]* Problem Noted Date Resolved Date Pelvic pain in female 04/25/2013 12/29/2017 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 documented as of this encounter (statuses as of 01/19/2022) [facility] History of Past illness Narrative* Problem Noted Date Resolved Date Pelvic pain in female 04/25/2013 12/29/2017 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 documented as of this encounter (statuses as of 01/22/2022) [facility] History of Past illness Narrative* Problem Noted Date Resolved Date Pelvic pain in female 04/25/2013 12/29/2017 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 documented as of this encounter (statuses as of 02/15/2022) [facility] History of Past illness Narrative* Problem Noted Date Resolved Date Pelvic pain in female 04/25/2013 12/29/2017 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 documented as of this encounter (statuses as of 02/17/2022) [facility] History of Past illness Narrative* Problem Noted Date Resolved Date Pelvic pain in female 04/25/2013 12/29/2017 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 documented as of this encounter (statuses as of 02/18/2022) [facility] History of Past illness Narrative* Problem Noted Date Resolved Date Pelvic pain in female 04/25/2013 12/29/2017 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 documented as of this encounter (statuses as of 03/14/2022) [facility] History of Past illness Narrative* Problem Noted Date Resolved Date Pelvic pain in female 04/25/2013 12/29/2017 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 documented as of this encounter (statuses as of 05/26/2022) [facility] History of Past illness Narrative* Problem Noted Date Resolved Date Pelvic pain in female 04/25/2013 12/29/2017 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 documented as of this encounter (statuses as of 06/01/2022) [facility] History of Past illness Narrative* Problem Noted Date Resolved Date Pelvic pain in female 04/25/2013 12/29/2017 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 documented as of this encounter (statuses as of 06/01/2022) [facility] History of Past illness Narrative* Problem Noted Date Resolved Date Pelvic pain in female 04/25/2013 12/29/2017 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 documented as of this encounter (statuses as of 06/16/2022) [facility] History of Past illness Narrative* Problem Noted Date Resolved Date Pelvic pain in female 04/25/2013 12/29/2017 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 documented as of this encounter (statuses as of 06/17/2022) [facility] History of Past illness Narrative* Problem Noted Date Resolved Date Pelvic pain in female 04/25/2013 12/29/2017 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 documented as of this encounter (statuses as of 06/18/2022) [facility] History of Past illness Narrative* Problem Noted Date Resolved Date Pelvic pain in female 04/25/2013 12/29/2017 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 documented as of this encounter (statuses as of 06/19/2022) [facility] History of Past illness Narrative* Problem Noted Date Resolved Date Pelvic pain in female 04/25/2013 12/29/2017 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 documented as of this encounter (statuses as of 06/22/2022) [facility] History of Past illness Narrative* Problem Noted Date Resolved Date Pelvic pain in female 04/25/2013 12/29/2017 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 documented as of this encounter (statuses as of 06/23/2022) [facility] History of Past illness Narrative* Problem Noted Date Resolved Date Pelvic pain in female 04/25/2013 12/29/2017 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 documented as of this encounter (statuses as of 06/30/2022) [facility] History of Past illness Narrative* Problem Noted Date Resolved Date Pelvic pain in female 04/25/2013 12/29/2017 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 documented as of this encounter (statuses as of 07/22/2022) [facility] History of Past illness Narrative* Problem Noted Date Resolved Date Pelvic pain in female 04/25/2013 12/29/2017 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 documented as of this encounter (statuses as of 08/10/2022) [facility] note* Diagnosis ILD (interstitial lung disease) (HCC)- Primary Postinflammatory pulmonary fibrosis Abnormal PFTs Nonspecific abnormal results of pulmonary system function study documented in this encounter [facility] [place] [facility]* Diagnosis ILD (interstitial lung disease) (HCC) Postinflammatory pulmonary fibrosis documented in this encounter [facility] [place] [facility]* Diagnosis ILD (interstitial lung disease) (HCC) Postinflammatory pulmonary fibrosis [facility] Diagnosis ILD (interstitial lung disease) (HCC)- Primary Postinflammatory pulmonary fibrosis Interstitial pulmonary disease (HCC) Postinflammatory pulmonary fibrosis [facility] Diagnosis Encounter for gynecological examination (general) (routine) without abnormal findings- Primary Encounter for screening mammogram for breast cancer Dense breast tissue on mammogram Premature ovarian insufficiency documented in this encounter [facility] [place] [facility]* Diagnosis Interstitial pulmonary disease (HCC) Postinflammatory pulmonary fibrosis [facility] Diagnosis ILD (interstitial lung disease) (HCC)- Primary Postinflammatory pulmonary fibrosis MCTD (mixed connective tissue disease) (HCC) Other specified diffuse disease of connective tissue Systemic lupus erythematosus with lung involvement, unspecified SLE type ([facility]) Encounter for prophylactic measures, unspecified [facility] Diagnosis Premature ovarian insufficiency- Primary [facility] Diagnosis Contusion of left lower leg, initial encounter- Primary History of blood clots Personal history of venous thrombosis and embolism [facility] Diagnosis ILD (interstitial lung disease) (HCC)- Primary Postinflammatory pulmonary fibrosis [facility] Diagnosis Encounter for screening for osteoporosis- Primary Special screening for osteoporosis documented in this encounter [facility] [place] [facility]* Diagnosis ILD (interstitial lung disease) (HCC)- Primary Postinflammatory pulmonary fibrosis documented in this encounter [facility] note* Diagnosis ILD (interstitial lung disease) (HCC)- Primary Postinflammatory pulmonary fibrosis documented in this encounter [facility] [place] [facility]* Diagnosis ILD (interstitial lung disease) (HCC)- Primary Postinflammatory pulmonary fibrosis documented in this encounter [facility] note* Diagnosis Neck pain- Primary Cervicalgia Premature ovarian failure- Primary Other ovarian dysfunction Hormone replacement therapy (HRT) Need for prophylactic hormone replacement therapy (postmenopausal) Encounter for screening mammogram for malignant neoplasm of breast Other screening mammogram Blood clotting disorder (HCC) Other and unspecified coagulation defects Osteoporosis, unspecified osteoporosis type, unspecified pathological fracture presence documented in this encounter [facility] noteNo assessment information availableWMercy [facility] Work [facility]: [facility] note* Diagnosis Vitamin D deficiency- Primary Unspecified vitamin D deficiency Osteoporosis without current pathological fracture, unspecified osteoporosis type Premature ovarian failure- Primary Other ovarian dysfunction Hormone replacement therapy (HRT) Need for prophylactic hormone replacement therapy (postmenopausal) Encounter for screening mammogram for malignant neoplasm of breast Other screening mammogram Blood clotting disorder (HCC) Other and unspecified coagulation defects Osteoporosis, unspecified osteoporosis type, unspecified pathological fracture presence documented in this encounter [facility] note* Diagnosis Jaw pain- Primary Premature ovarian failure- Primary Other ovarian dysfunction Hormone replacement therapy (HRT) Need for prophylactic hormone replacement therapy (postmenopausal) Encounter for screening mammogram for malignant neoplasm of breast Other screening mammogram Blood clotting disorder (HCC) Other and unspecified coagulation defects Osteoporosis, unspecified osteoporosis type, unspecified pathological fracture presence documented in this encounter [facility] note* Diagnosis NS same day pt cx- Primary Hormone replacement therapy (HRT) Need for prophylactic hormone replacement therapy (postmenopausal) Encounter for screening mammogram for malignant neoplasm of breast Other screening mammogram Premature ovarian failure Other ovarian dysfunction Blood clotting disorder (HCC) Other and unspecified coagulation defects Osteoporosis, unspecified osteoporosis type, unspecified pathological fracture presence documented in this encounter [facility] note* Diagnosis Osteoporosis without current pathological fracture, unspecified osteoporosis type documented in this encounter [facility] Work Phone: Evaluation note* Diagnosis POI versus perimenopause age 39 s/p uterine artery embolization with osteoporosis, GSM, HSDD- Primary Symptomatic menopausal or female climacteric states GSM HSDD, acquired Hypoactive sexual desire disorder Osteoporosis without current pathological fracture, unspecified osteoporosis type Hyperparathyroid (HCC) s/p surgery 2014 Nephrolithiasis Calculus of kidney hx of low vitamin D Unspecified vitamin D deficiency MCTD (mixed connective tissue disease) (HCC) Other specified diffuse disease of connective tissue Interstitial lung disease (HCC) 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 Personal history of venous thrombosis and embolism Protein S deficiency (HCC) Primary hypercoagulable state hx of RUE DVT in setting of Protein S deficiency lifelong coumadin Hormone replacement therapy (HRT) Need for prophylactic hormone replacement therapy (postmenopausal) Uterine leiomyoma, unspecified location Chronic anticoagulation Long-term (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 of anticoagulants [facility] Diagnosis Encounter for gynecological examination (general) (routine) without abnormal findings- Primary Encounter for screening mammogram for malignant neoplasm of breast Other screening mammogram Screening for cervical cancer Screening for malignant neoplasm of the cervix [facility] Diagnosis Osteoporosis without current pathological fracture, unspecified osteoporosis type- Primary documented in this encounter [facility] [place] [facility]* Diagnosis ILD (interstitial lung disease) (HCC)- Primary Postinflammatory pulmonary fibrosis documented in this encounter [facility] [place] [facility]* Diagnosis Sinus congestion- Primary Other diseases of nasal cavity and sinuses Fever, unspecified fever cause Hyperparathyroidism ([facility]/HCC) Hyperparathyroidism, unspecified documented in this encounter [facility] Work Phone: Evaluation note* Diagnosis ILD (interstitial lung disease) (HCC)- Primary Postinflammatory pulmonary fibrosis [facility] Diagnosis ILD (interstitial lung disease) (HCC)- Primary Postinflammatory pulmonary fibrosis documented in this encounter [facility] [place] [facility]* Diagnosis ILD (interstitial lung disease) (HCC)- Primary Postinflammatory pulmonary fibrosis documented in this encounter [facility] [place] [facility]* Diagnosis ILD (interstitial lung disease) (HCC)- Primary Postinflammatory pulmonary fibrosis documented in this encounter [facility] [place] [facility]* Diagnosis Osteoporosis without current pathological fracture, unspecified osteoporosis type- Primary Vitamin D deficiency Unspecified vitamin D deficiency History of parathyroid surgery Other postprocedural status documented in this encounter [facility] note* Diagnosis Wheezing- Primary SOB (shortness of breath) Shortness of breath Abnormal chest x-ray Nonspecific (abnormal) findings on radiological and other examination of lung field Pneumonitis Pneumonia, organism unspecified Bronchiectasis with acute exacerbation (CMS/HCC) Bronchiectasis with acute exacerbation Cough, unspecified type documented in this encounter [facility] Work Phone: Evaluation note* Diagnosis Interstitial pulmonary disease (HCC) Postinflammatory pulmonary fibrosis documented in this encounter [facility] note* Diagnosis Encounter for screening for osteoporosis Special screening for osteoporosis Hyperparathyroidism (HCC) Hyperparathyroidism, unspecified documented in this encounter [facility] note* Diagnosis Dysphagia, unspecified type- Primary documented in this encounter [facility] note* Diagnosis ILD (interstitial lung disease) (HCC) Postinflammatory pulmonary fibrosis documented in this encounter [facility] note* Diagnosis ILD (interstitial lung disease) (HCC) Postinflammatory pulmonary fibrosis documented in this encounter [facility] note* Diagnosis ILD (interstitial lung disease) (HCC)- Primary Postinflammatory pulmonary fibrosis documented in this encounter [facility] note* Diagnosis Gastro-esophageal reflux disease without esophagitis- Primary Other primary thrombophilia (HCC) 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 Long-term (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 of anticoagulants documented in this encounter [facility] note* Diagnosis Osteoporosis without current pathological fracture, unspecified osteoporosis type- Primary Vitamin D deficiency Unspecified vitamin D deficiency History of parathyroid surgery Other postprocedural status documented in this encounter [facility] note* Diagnosis ILD (interstitial lung disease) (HCC)- Primary Postinflammatory pulmonary fibrosis documented in this encounter [facility] note* Diagnosis ILD (interstitial lung disease) (HCC)- Primary Postinflammatory pulmonary fibrosis documented in this encounter [facility] note* Diagnosis ILD (interstitial lung disease) (HCC)- Primary Postinflammatory pulmonary fibrosis documented in this encounter [facility] note* Diagnosis Osteoporosis without current pathological fracture, unspecified osteoporosis type- Primary documented in this encounter [facility] note* Diagnosis Encounter for annual general medical examination without abnormal findings in adult- Primary Screening for multiple conditions Multiphasic screening Vitamin D deficiency Vitamin B 12 deficiency Other B-complex deficiencies Hyperparathyroidism (Multi) Hyperparathyroidism, unspecified Secondary hypercoagulable state (Multi) Secondary hypercoagulable state Hyperglycemia Other abnormal glucose Psoriatic arthritis (Multi) Psoriatic arthropathy Bronchiectasis with acute exacerbation (Multi) Bronchiectasis with acute exacerbation Coated tongue Hypertrophy of tongue papillae Encounter for screening mammogram for malignant neoplasm of breast documented in this encounter [facility] Work Phone: Evaluation note* Diagnosis Osteoporosis without current pathological fracture, unspecified osteoporosis type- Primary [facility] Diagnosis Osteoporosis without current pathological fracture, unspecified osteoporosis type- Primary [facility] Diagnosis Osteoporosis without current pathological fracture, unspecified osteoporosis type- Primary [facility] Diagnosis Nasal crusting- Primary Other diseases of nasal cavity and sinuses Rib fracture Closed fracture of rib(s), unspecified Acute pain of left shoulder [facility] Diagnosis Nasal crusting- Primary Other diseases of nasal cavity and sinuses Rib fracture Closed fracture of rib(s), unspecified ILD (interstitial lung disease) (HCC)- Primary Postinflammatory pulmonary fibrosis [facility] Diagnosis Nasal crusting- Primary Other diseases of nasal cavity and sinuses Rib fracture Closed fracture of rib(s), unspecified ILD (interstitial lung disease) (HCC)- Primary Postinflammatory pulmonary fibrosis [facility] Diagnosis Nasal crusting- Primary Other diseases of nasal cavity and sinuses Rib fracture Closed fracture of rib(s), unspecified Need for influenza vaccination- Primary Need for prophylactic vaccination and inoculation against influenza ILD (interstitial lung disease) (HCC) Postinflammatory pulmonary fibrosis [facility] Diagnosis Nasal crusting- Primary Other diseases of nasal cavity and sinuses Rib fracture Closed fracture of rib(s), unspecified Ingrown toenail- Primary Ingrowing nail Pain of right great toe [facility] Diagnosis Secondary hypercoagulable state (CMS/HCC)- Primary Secondary hypercoagulable state Infection of parotid gland Lymphadenopathy of head and neck ILD (interstitial lung disease) (CMS/HCC) Postinflammatory pulmonary fibrosis Blood clotting disorder (CMS/HCC) Other and unspecified coagulation defects Protein S deficiency (CMS/HCC) Primary hypercoagulable state MCTD (mixed connective tissue disease) (CMS/HCC) Other specified diffuse disease of connective tissue Rash Rash and other nonspecific skin eruption documented in this encounter [facility] Work Phone: Evaluation note* Diagnosis Tongue coating- Primary Hypertrophy of tongue papillae Pharyngitis, unspecified etiology Lymphadenopathy of head and neck Rash Rash and other nonspecific skin eruption documented in this encounter [facility] Work Phone: Evaluation note* Diagnosis Lymphadenopathy of head and neck- Primary Rash Rash and other nonspecific skin eruption documented in this encounter [facility] Work Phone: Evaluation note* Diagnosis Coated tongue- Primary Hypertrophy of tongue papillae Encounter for screening mammogram for malignant neoplasm of breast Other osteoporosis without current pathological fracture Anxiety Anxiety state, unspecified Anemia, unspecified type Sore throat Acute pharyngitis Blood clotting disorder (Multi) Other and unspecified coagulation defects MCTD (mixed connective tissue disease) (Multi) Other specified diffuse disease of connective tissue Hypercoagulable state, secondary (Multi) Secondary hypercoagulable state Psoriatic arthritis (Multi) Psoriatic arthropathy ILD (interstitial lung disease) (Multi) Postinflammatory pulmonary fibrosis Encounter for osteoporosis screening in asymptomatic postmenopausal patient Encounter for annual general medical examination without abnormal findings in adult documented in this encounter [facility] Work Phone: Evaluation note* Diagnosis Coated tongue- Primary Hypertrophy of tongue papillae Encounter for screening mammogram for malignant neoplasm of breast Other osteoporosis without current pathological fracture Anxiety Anxiety state, unspecified Anemia, unspecified type Sore throat Acute pharyngitis Blood clotting disorder (Multi) Other and unspecified coagulation defects MCTD (mixed connective tissue disease) (Multi) Other specified diffuse disease of connective tissue Hypercoagulable state, secondary (Multi) Secondary hypercoagulable state Psoriatic arthritis (Multi) Psoriatic arthropathy ILD (interstitial lung disease) (Multi) Postinflammatory pulmonary fibrosis Encounter for osteoporosis screening in asymptomatic postmenopausal patient Encounter for annual general medical examination without abnormal findings in adult Encounter for screening mammogram for malignant neoplasm of breast documented in this encounter [facility] Work Phone: Evaluation note* Diagnosis Coated tongue- Primary Hypertrophy of tongue papillae Encounter for screening mammogram for malignant neoplasm of breast Other osteoporosis without current pathological fracture Anxiety Anxiety state, unspecified Anemia, unspecified type Sore throat Acute pharyngitis Blood clotting disorder (Multi) Other and unspecified coagulation defects MCTD (mixed connective tissue disease) (Multi) Other specified diffuse disease of connective tissue Hypercoagulable state, secondary (Multi) Secondary hypercoagulable state Psoriatic arthritis (Multi) Psoriatic arthropathy ILD (interstitial lung disease) (Multi) Postinflammatory pulmonary fibrosis Encounter for osteoporosis screening in asymptomatic postmenopausal patient Encounter for annual general medical examination without abnormal findings in adult Abnormal mammogram Abnormal mammogram, unspecified documented in this encounter [facility] Work Phone: Evaluation note* Diagnosis Coated tongue- Primary Hypertrophy of tongue papillae Encounter for screening mammogram for malignant neoplasm of breast Other osteoporosis without current pathological fracture Anxiety Anxiety state, unspecified Anemia, unspecified type Sore throat Acute pharyngitis Blood clotting disorder (Multi) Other and unspecified coagulation defects MCTD (mixed connective tissue disease) (Multi) Other specified diffuse disease of connective tissue Hypercoagulable state, secondary (Multi) Secondary hypercoagulable state Psoriatic arthritis (Multi) Psoriatic arthropathy ILD (interstitial lung disease) (Multi) Postinflammatory pulmonary fibrosis Encounter for osteoporosis screening in asymptomatic postmenopausal patient Encounter for annual general medical examination without abnormal findings in adult Left wrist pain Pain in joint, forearm Left hand pain Pain in soft tissues of limb documented in this encounter [facility] Work Phone: Evaluation note* Diagnosis Nasal crusting- Primary Other diseases of nasal cavity and sinuses Rib fracture Closed fracture of rib(s), unspecified ILD (interstitial lung disease) (HCC)- Primary Postinflammatory pulmonary fibrosis [facility] Nasal crusting- Primary Other diseases of nasal cavity and sinuses Rib fracture Closed fracture of rib(s), unspecified ILD (interstitial lung disease) (HCC)- Primary Postinflammatory pulmonary fibrosis [facility] Diagnosis Nasal crusting- Primary Other diseases of nasal cavity and sinuses Rib fracture Closed fracture of rib(s), unspecified Pulmonary arterial hypertension (HCC)- Primary Other chronic pulmonary heart diseases Pulmonary hypertension (HCC) Other chronic pulmonary heart diseases Mixed connective tissue disease (HCC) Other specified diffuse disease of connective tissue [facility] Diagnosis Nasal crusting- Primary Other diseases of nasal cavity and sinuses Rib fracture Closed fracture of rib(s), unspecified Osteoporosis without current pathological fracture, unspecified osteoporosis type- Primary Vitamin D deficiency Unspecified vitamin D deficiency History of parathyroid surgery Other postprocedural status [facility] Diagnosis Nasal crusting- Primary Other diseases of nasal cavity and sinuses Rib fracture Closed fracture of rib(s), unspecified Osteoporosis without current pathological fracture, unspecified osteoporosis type- Primary [facility] Diagnosis Nasal crusting- Primary Other diseases of nasal cavity and sinuses Rib fracture Closed fracture of rib(s), unspecified Encounter for gynecological examination (general) (routine) without abnormal findings- Primary Encounter for screening mammogram for breast cancer [facility] Diagnosis Nasal crusting- Primary Other diseases of nasal cavity and sinuses Rib fracture Closed fracture of rib(s), unspecified Osteoporosis without current pathological fracture, unspecified osteoporosis type- Primary [facility] Diagnosis Coated tongue- Primary Hypertrophy of tongue papillae Encounter for screening mammogram for malignant neoplasm of breast Other osteoporosis without current pathological fracture Anxiety Anxiety state, unspecified Anemia, unspecified type Sore throat Acute pharyngitis Blood clotting disorder (Multi) Other and unspecified coagulation defects MCTD (mixed connective tissue disease) (Multi) Other specified diffuse disease of connective tissue Hypercoagulable state, secondary (Multi) Secondary hypercoagulable state Psoriatic arthritis (Multi) Psoriatic arthropathy ILD (interstitial lung disease) (Multi) Postinflammatory pulmonary fibrosis Encounter for osteoporosis screening in asymptomatic postmenopausal patient Encounter for annual general medical examination without abnormal findings in adult Encounter for annual general medical examination without abnormal findings in adult- Primary Vitamin D deficiency Vitamin B 12 deficiency Other B-complex deficiencies Anxiety Anxiety state, unspecified Screening for diabetes mellitus Hyperglycemia Other abnormal glucose MCTD (mixed connective tissue disease) (Multi) Other specified diffuse disease of connective tissue Hypercoagulable state, secondary (Multi) Secondary hypercoagulable state Psoriasis Other psoriasis ILD (interstitial lung disease) (Multi) Postinflammatory pulmonary fibrosis Wheezing documented in this encounter [facility] Work Phone: Evaluation note* Diagnosis Coated tongue- Primary Hypertrophy of tongue papillae Encounter for screening mammogram for malignant neoplasm of breast Other osteoporosis without current pathological fracture Anxiety Anxiety state, unspecified Anemia, unspecified type Sore throat Acute pharyngitis Blood clotting disorder ([facility]) Other and unspecified coagulation defects MCTD (mixed connective tissue disease) ([facility]) Other specified diffuse disease of connective tissue Hypercoagulable state, secondary (Multi) Secondary hypercoagulable state Psoriatic arthritis (Multi) Psoriatic arthropathy ILD (interstitial lung disease) (Multi) Postinflammatory pulmonary fibrosis Encounter for osteoporosis screening in asymptomatic postmenopausal patient Encounter for annual general medical examination without abnormal findings in adult Encounter for annual general medical examination without abnormal findings in adult- Primary Vitamin D deficiency Vitamin B 12 deficiency Other B-complex deficiencies Anxiety Anxiety state, unspecified Screening for diabetes mellitus Hyperglycemia Other abnormal glucose MCTD (mixed connective tissue disease) ([facility]) Other specified diffuse disease of connective tissue Hypercoagulable state, secondary (Multi) Secondary hypercoagulable state Psoriasis Other psoriasis ILD (interstitial lung disease) (Multi) Postinflammatory pulmonary fibrosis Wheezing Left lateral abdominal pain- Primary Nausea Nausea alone Diarrhea of presumed infectious origin Left lower quadrant abdominal tenderness with rebound tenderness Other iron deficiency anemia documented in this encounter [facility] Work Phone: Evaluation note* Diagnosis Coated tongue- Primary Hypertrophy of tongue papillae Encounter for screening mammogram for malignant neoplasm of breast Other osteoporosis without current pathological fracture Anxiety Anxiety state, unspecified Anemia, unspecified type Sore throat Acute pharyngitis Blood clotting disorder ([facility]) Other and unspecified coagulation defects MCTD (mixed connective tissue disease) ([facility]) Other specified diffuse disease of connective tissue Hypercoagulable state, secondary (Multi) Secondary hypercoagulable state Psoriatic arthritis (Multi) Psoriatic arthropathy ILD (interstitial lung disease) (Multi) Postinflammatory pulmonary fibrosis Encounter for osteoporosis screening in asymptomatic postmenopausal patient Encounter for annual general medical examination without abnormal findings in adult Encounter for annual general medical examination without abnormal findings in adult- Primary Vitamin D deficiency Vitamin B 12 deficiency Other B-complex deficiencies Anxiety Anxiety state, unspecified Screening for diabetes mellitus Hyperglycemia Other abnormal glucose MCTD (mixed connective tissue disease) ([facility]) Other specified diffuse disease of connective tissue Hypercoagulable state, secondary (Multi) Secondary hypercoagulable state Psoriasis Other psoriasis ILD (interstitial lung disease) (Multi) Postinflammatory pulmonary fibrosis Wheezing Left lateral abdominal pain- Primary Nausea Nausea alone Diarrhea of presumed infectious origin Left lower quadrant abdominal tenderness with rebound tenderness Other iron deficiency anemia Psoriasis Other psoriasis documented in this encounter [facility] Work Phone: History of Present illness NarrativeHas acne hormonal. has a rash on her right breast.[employer] Work Phone: History of Present illness NarrativeHas acne hormonal. has a rash on her right breast.[employer] Work Phone: History of Present illness Narrative* This is a 40-year-old female who is here today with concerns about acne due to hormonal changes. She is going through menopause and ever since then she has had cystic acne which does not seem to be going away. Has autoimmune disease who she is seeing a squad boss and lead ramp service man and an electrocardiograph repairer for. 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 Is chroni chrissy on Coumadin to prevent blood clots. * Also has a rash on her right breast. Rash seems to have appeared a few weeks ago and is not disappearing. Has no itching or any injuries. No lumps or problems with her mammogram. She has a similar lesion on her left thigh. No other complaints. [employer] Work Phone: History of Present illness Narrative* This is a 41 year old female here for symptoms of cough. * Nasal congestion: Yes * Nasal drainage: Yes * Sore throat: Yes * Swollen glands: Negative * Cough: Yes * Productive: yes * Color: yellow * Blood in cough phlegm: Negative * Wheezing: Negative * Shortness of breath: Negative * Chest pain: Negative * Heartburn: Negative * Belching: Negative * Fever: Negative * Recent out of country travel: Negative [employer] Work Phone: History of Present illness Narrative* This is a 41 year old female here for symptoms of cough. * Nasal congestion: Yes * Nasal drainage: Yes * Sore throat: Yes * Swollen glands: Negative * Cough: Yes * Productive: yes * Color: yellow * Blood in cough phlegm: Negative * Wheezing: Negative * Shortness of breath: Negative * Chest pain: Negative * Heartburn: Negative * Belching: Negative * Fever: Negative * Recent out of country travel: Negative [facility] Work Phone: History of Present illness Narrative* This is a 41 year old female here for symptoms of cough. * Nasal congestion: Yes * Nasal drainage: Yes * Sore throat: Yes * Swollen glands: Negative * Cough: Yes * Productive: yes * Color: yellow * Blood in cough phlegm: Negative * Wheezing: Negative * Shortness of breath: Negative * Chest pain: Negative * Heartburn: Negative * Belching: Negative * Fever: Negative * Recent out of country travel: Negative [facility] Work Phone: History of Present illness Narrative* This is a 40-year-old female who is here today with concerns about acne due to hormonal changes. She is going through menopause and ever since then she has had cystic acne which does not seem to be going away. Has autoimmune disease who she is seeing a squad boss and lead ramp service man and an electrocardiograph repairer for. 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 Is chroni chrissy on Coumadin to prevent blood clots. * Also has a rash on her right breast. Rash seems to have appeared a few weeks ago and is not disappearing. Has no itching or any injuries. No lumps or problems with her mammogram. She has a similar lesion on her left thigh. No other complaints. [facility] Work Phone: Hospital Discharge instructions Additional Instructions Please perform gentle stretching, ice and heat, use Tylenol. You may use Flexeril however use it at nighttime secondary to sedating effects.[facility] [place] Work Phone: Reason for referral (narrative)* Outpatient Procedure (Routine) - Authorized Specialty Diagnoses / Procedures Referred By Leti t Referred To Contact [facility] Diagnoses ILD (interstitial lung disease) (HCC) Procedures SPIROMETRY BASELINE ONLY SPMTRY W/VC EXPIRATORY SHALA W/WO MXML VOL VNTJ Alan Rene MD [address] [place] [address] [address] Referral ID Status Reason Start Date Expiration Date Visits Requested Visits Authorized [id number] Authorized Auto-Generat ed Referral 10/12/2021 11/11/2022 1 1 * Outpatient Procedure (Routine) - Authorized Specialty Diagnoses / Procedures Referred By Contac t Referred To Contact [facility] Diagnoses ILD (interstitial lung disease) (HCC) Procedures LUNG DIFFUSION CAPACITY (DLCO) DIFFUSING CAPACITY Alan Rene MD [address] [place] [address] [address] Referral ID Status Reason Start Date Expiration Date Visits Requested Visits Authorized [id number] Authorized Auto-Generat ed Referral 10/12/2021 11/11/2022 1 1 [facility] for referral (narrative)* Outpatient Procedure (Routine) - Pending Review Specialty Diagnoses / Procedures Referred By Leti t Referred To Contact [facility] Diagnoses ILD (interstitial lung disease) (HCC) Interstitial pulmonary disease (HCC) Procedures ECHO ECHO TTHRC R-T 2D W/WOM-MODE COMPL SPEC&COLR D Alan Rene MD [address] [place] [address] [address] Referral ID Status Reason Start Date Expiration Date Visits Requested Visits Authorized [id number] Pending Review Auto-Generat ed Referral 12/22/2021 12/22/2022 1 1 * MRI/CT (Routine) - Pending Review Specialty Diagnoses / Procedures Referred By Contac t Referred To Contact CT IMAGING Diagnoses Interstitial pulmonary disease (HCC) Procedures CT CHEST WO IVCON DIAGNOSTIC COMPUTED TOMOGRAPHY THORAX W/O CNTRST Alan Rene MD [address] [place] [address] Ct Imaging Referral ID Status Reason Start Date Expiration Date Visits Requested Visits Authorized [id number] Pending Review Auto-Generat ed Referral 12/22/2021 01/21/2023 1 1 [facility] for referral (narrative)* Outpatient Procedure (Urgent) - Closed Specialty Diagnoses / Procedures Referred By Contac t Referred To Contact [facility] [place] Diagnoses Contusion of left lower leg, initial encounter History of blood clots Procedures US LEG VEIN DVT UNL VAS LAB DUP-SCAN XTR VEINS UNILATERAL/LIMITED STUDY Moris Bernstein APRN.CNP [address] [place] [address] [facility] [place] [id number] Referral ID Status Reason Start Date Expiration Date V isits Requested Visits Authorized [id number] Closed Auto-Generate d Referral 02/17/2022 02/17/2023 1 1 [facility] for referral (narrative)* Outpatient Procedure (Routine) - Pending Review Specialty Diagnoses / Procedures Referred By Contac t Referred To [facility] Diagnoses ILD (interstitial lung disease) (HCC) Procedures SPIROMETRY BASELINE ONLY SPMTRY W/VC EXPIRATORY SHALA W/WO MXML VOL VNTJ Alan Rene MD [address] [place] [address] [facility] [address] [place] [address] Referral ID Status Reason Start Date Expiration Date Visits Requested Visits Authorized [id number] Pending Review Auto-Generat ed Referral 04/13/2023 1 1 * Outpatient Procedure (Routine) - Pending Review Specialty Diagnoses / Procedures Referred By Contac t Referred To [facility] [place] Diagnoses ILD (interstitial lung disease) (HCC) Procedures LUNG DIFFUSION CAPACITY (DLCO) DIFFUSING CAPACITY Alan Rene MD [address] [place] [address] [address] Referral ID Status Reason Start Date Expiration Date Visits Requested Visits Authorized [id number] Pending Review Auto-Generat ed Referral 04/13/2023 1 1 [facility] Outpatient Procedure (Routine) - Authorized Specialty Diagnoses / Procedures Referred By Contac t Referred To [facility] [place] Diagnoses ILD (interstitial lung disease) (HCC) Procedures SPIROMETRY BASELINE ONLY SPMTRY W/VC EXPIRATORY SHALA W/WO MXML VOL VNTJ Alan Rene MD [address] [place] [address] [address] Referral ID Status Reason Start Date Expiration Date Visits Requested Visits Authorized [id number] Authorized Auto-Generat ed Referral 06/01/2022 07/01/2023 1 1 * Outpatient Procedure (Routine) - Authorized Specialty Diagnoses / Procedures Referred By Contac t Referred To [facility] [place] Diagnoses ILD (interstitial lung disease) (HCC) Procedures LUNG DIFFUSION CAPACITY (DLCO) DIFFUSING CAPACITY Alan Rene MD [address] [place] [address] [address] Referral ID Status Reason Start Date Expiration Date Visits Requested Visits Authorized [id number] Authorized Auto-Generat ed Referral 06/01/2022 07/01/2023 1 1 [facility] for referral (narrative)* Diagnostic Procedure Only (Routine) - Pending Review Specialty Diagnoses / Procedures Referred By Contac t Referred To Contact BR IMAGING Diagnoses Encounter for screening mammogram for malignant neoplasm of breast Procedures GEM SCREENING SCREENING MAMMOGRAPHY BI 2-VIEW BREAST INC Joslyn Russell MD [address] [place] [address] [facility] [address] [place] [address] Referral ID Status Reason Start Date Expiration Date Visits Requested Visits Authorized [id number] Pending Review Auto-Generat ed Referral 06/23/2022 07/15/2023 1 1 [facility] for referral (narrative)* Diagnostic Procedure Only (Routine) - Pending Review Specialty Diagnoses / Procedures Referred By Leti t Referred To Contact BR IMAG[facility] Diagnoses Encounter for screening mammogram for malignant neoplasm of breast Procedures GEM SCREENING W JI SCREENING DIGITAL BREAST TOMOSYNTHESIS BI SCREENING MAMMOGRAPHY BI 2-VIEW BREAST INC CAD Gale Goodrich, KELVIN [address] [address] [facility] [address] [place] [phone] Referral ID Status Reason Start Date Expiration Date Visits Requested Visits Authorized [id number] Pending Review Auto-Generat ed Referral 08/12/2022 09/11/2023 1 1 [facility] for referral (narrative)* Outpatient Procedure (Routine) - Authorized Specialty Diagnoses / Procedures Referred By Leti t Referred To Contact [facility] Diagnoses ILD (interstitial lung disease) (HCC) Procedures SPIROMETRY BASELINE ONLY SPMTRY W/VC EXPIRATORY SHALA W/WO MXML VOL DURGATAlan Cornelius MD [address] [place] [address] [facility] [place] [address] Referral ID Status Reason Start Date Expiration Date Visits Requested Visits Authorized [id number] Authorized Auto-Generat ed Referral 12/13/2022 01/12/2024 1 1 * Outpatient Procedure (Routine) - Authorized Specialty Diagnoses / Procedures Referred By Contac t Referred To Contact [facility] Diagnoses ILD (interstitial lung disease) (HCC) Procedures LUNG DIFFUSION CAPACITY (DLCO) DIFFUSING CAPACITY Alan Rene MD [address] [place] [address] [place] [address] Referral ID Status Reason Start Date Expiration Date Visits Requested Visits Authorized [id number] Authorized Auto-Generat ed Referral 12/13/2022 01/12/2024 1 1 [facility] for referral (narrative)* Diagnostic Procedure Only (Routine) - Closed Specialty Diagnoses / Procedures Referred By Contac t Referred To Contact XR IMAGING Diagnoses Encounter for screening for osteoporosis Hyperparathyroidism (HCC) Procedures DXA-FOREARM SKELETON DXA BONE DENSITY STUDY SITES APPENDICLR Candie Dobbs MD [address] [place] [address] Xr Imaging [facility] Referral ID Status Reason Start Date Expiration Date V isits Requested Visits Authorized [id number] Closed Auto-Generate d Referral 05/31/2022 06/30/2023 1 1 [facility] for referral (narrative)* Outpatient Procedure (Routine) - Authorized Specialty Diagnoses / Procedures Referred By Contac t Referred To Contact [facility] Diagnoses ILD (interstitial lung disease) (HCC) Procedures SPIROMETRY BASELINE ONLY SPMTRY W/VC EXPIRATORY SHALA W/WO MXML VOL VNTJ Alan Rene MD [address] [place] [address] [facility] [address] [place], [place] [id number] Referral ID Status Reason Start Date Expiration Date Visits Requested Visits Authorized [id number] Authorized Auto-Generat ed Referral 3 04/28/2024 1 1 * Outpatient Procedure (Routine) - Authorized Specialty Diagnoses / Procedures Referred By Contac t Referred To [facility] Diagnoses ILD (interstitial lung disease) (HCC) Procedures LUNG DIFFUSION CAPACITY (DLCO) DIFFUSING CAPACITY Alan Rene MD [address] [place] [address] [place] [id number] Referral ID Status Reason Start Date Expiration Date Visits Requested Visits Authorized [id number] Authorized Auto-Generat ed Referral 3 04/28/2024 1 1 [facility] for referral (narrative)* Outpatient Procedure (Routine) - Authorized Specialty Diagnoses / Procedures Referred By Contac t Referred To [facility] [place] Diagnoses ILD (interstitial lung disease) (HCC) Procedures SPIROMETRY BASELINE ONLY SPMTRY W/VC EXPIRATORY SHALA W/WO MXML VOL VNTJ Alan Rene MD [address] [place] [address] [address] Referral ID Status Reason Start Date Expiration Date Visits Requested Visits Authorized [id number] Authorized Auto-Generat ed Referral 08/31/2023 09/29/2024 1 1 * Outpatient Procedure (Routine) - Authorized Specialty Diagnoses / Procedures Referred By Contac t Referred To [facility] [place] Diagnoses ILD (interstitial lung disease) (HCC) Procedures LUNG DIFFUSION CAPACITY (DLCO) DIFFUSING CAPACITY Alan Rene MD [address] [place] [address] [place] [id number] Referral ID Status Reason Start Date Expiration Date Visits Requested Visits Authorized [id number] Authorized Auto-Generat ed Referral 08/31/2023 09/29/2024 1 1 [facility] for referral (narrative)* Diagnostic Procedure Only (Urgent) - Closed Specialty Diagnoses / Procedures Referred By Contac t Referred To Contact XR IMAGING Diagnoses Acute pain of left shoulder Procedures XR SCAPULA 2V AP/LAT LEFT RADEX SCAPULA COMPLETE Ranjit Perera, NUCLEAR FUEL ENRICHMENT TECHNICIAN.MALE INFERTILITY SPECIALIST [address] [place] [address] Xr Imaging [facility]95 Referral ID Status Reason Start Date Expiration Date V isits Requested Visits Authorized [id number] Closed Auto-Generate d Referral 03/18/2023 04/16/2024 1 1 Electronically signed by Ranjit Perera NUCLEAR FUEL ENRICHMENT TECHNICIAN.MALE INFERTILITY SPECIALIST at 03/18/2023 3:58 PM EST [facility] for referral (narrative)* Outpatient Procedure (Routine) - Authorized Specialty Diagnoses / Procedures Referred By Contac t Referred To Contact [facility] Diagnoses ILD (interstitial lung disease) (HCC) Procedures SPIROMETRY BASELINE ONLY SPMTRY W/VC EXPIRATORY SHALA W/WO MXML VOL VNTJ Alan Rene MD [address] [place] [address] [facility] [address] [place], [place] [id number] Referral ID Status Reason Start Date Expiration Date Visits Requested Visits Authorized [id number] Authorized Auto-Generat ed Referral 04/04/2025 1 1 * Outpatient Procedure (Routine) - Authorized Specialty Diagnoses / Procedures Referred By Contac t Referred To Contact [facility] Diagnoses ILD (interstitial lung disease) (HCC) Procedures LUNG DIFFUSION CAPACITY (DLCO) DIFFUSING CAPACITY Alan Rene MD [address] [place] [address] [facility] [address] [place] [address] Referral ID Status Reason Start Date Expiration Date Visits Requested Visits Authorized [id number] Authorized Auto-Generat ed Referral 04/04/2025 1 1 [facility] for referral (narrative)* Consultation (Routine) - Authorized Specialty Diagnoses / Procedures Referred By Contac t Referred To Contact Primary Care Diagnoses Pharyngitis, unspecified etiology Lymphadenopathy of head and neck Rash Tongue coating Procedures Follow Up In Advanced Primary Care - PCP Tayo Rodriguez MD [address] [facility] [address] [place] [address] Referral ID Status Reason Start Date Expiration Date V isits Requested Visits Authorized [id number] Authorized 06/30/2022 12/27/2022 1 1 [facility] Work Phone: [facility] for visit Narrative* Diagnostic Procedure Only (Routine) - Closed Specialty Diagnoses / Procedures Referred By Contac t Referred To Contact XR IMAGING Diagnoses Encounter for screening for osteoporosis Hyperparathyroidism (HCC) Procedures DXA-FOREARM SKELETON DXA BONE DENSITY STUDY /SITES APPENDICLR Candie Dobbs MD [address] [place] [address] Xr Imaging [facility]95 Referral ID Status Reason Start Date Expiration Date V isits Requested Visits Authorized [id number] Closed Auto-Generate d Referral 05/31/2022 06/30/2023 1 1 [facility] for visit Narrative* Diagnostic Procedure Only (Urgent) - Closed Specialty Diagnoses / Procedures Referred By Contac t Referred To Contact XR IMAGING Diagnoses Acute pain of left shoulder Procedures XR SCAPULA 2V AP/LAT LEFT RADEX SCAPULA COMPLETE Ranjit Perera, NUCLEAR FUEL ENRICHMENT TECHNICIAN.MALE INFERTILITY SPECIALIST [address] [place] [address] [place] [address] Referral ID Status Reason Start Date Expiration Date V isits Requested Visits Authorized [id number] Closed Auto-Generate d Referral 03/18/2023 04/16/2024 1 1 [facility] for visit Narrative* Imaging (Routine) - Authorized Specialty Diagnoses / Procedures Referred By Leti tse Referred To Contact Radiology Diagnoses Encounter for screening mammogram for malignant neoplasm of breast Procedures BI mammo bilateral screening tomosynthesis Tayo Rodriguez MD [address] [facility] [employer] [address] [place] [address] Phone: tel: fax: Referral ID Status Reason Start Date Expiration Date Visits Requested Visits Authorized [id number] Authorized Perform Procedure 06/04/2024 06/04/2025 1 1 [facility] [facility] Work Phone: reason for visit Narrative* Imaging (Emergency) - Pending Review Specialty Diagnoses / Procedures Referred By Leti tse Referred To Contact Radiology Diagnoses Abnormal mammogram Procedures BI mammo left diagnostic tomosynthesis BI mammo bilateral diagnostic Tayo Rodriguez MD [address] [facility] [employer] [address] [place] [address] Phone: tel: fax: Referral ID Status Reason Start Date Expiration Date Visits Requested Visits Authorized [id number] Pending Review Perform Procedure 06/25/2024 06/25/2025 1 1 [facility] Work Phone: reason for visit Narrative* Imaging (Routine) - Authorized Specialty Diagnoses / Procedures Referred By Leti tse Referred To Contact Radiology Diagnoses Left wrist pain Left hand pain Procedures XR hand left 3+ views Tayo Rodriguez MD [address] [employer] [address] [place] [address] Phone: tel: fax: Referral ID Status Reason Start Date Expiration Date Visits Requested Visits Authorized [id number] Authorized Perform Procedure 07/03/2024 07/03/2025 1 1 [facility] Work Phone: reason for visit Narrative* Imaging (Routine) - Authorized Specialty Diagnoses / Procedures Referred By Leti tse Referred To Contact Radiology Diagnoses Left wrist pain Left hand pain Procedures XR wrist left 3+ views Tayo Rodriguez MD [address] [place] [address] Phone: tel: fax: Referral ID Status Reason Start Date Expiration Date Visits Requested Visits Authorized [id number] Authorized Perform Procedure 07/03/2024 07/03/2025 1 1 [facility] Work Phone: Reason for visit Narrative* Outpatient Procedure (Routine) - Closed Specialty Diagnoses / Procedures Referred By Contac t Referred To Contact [facility] Diagnoses ILD (interstitial lung disease) (HCC) Procedures SPIROMETRY BASELINE ONLY SPMTRY W/VC EXPIRATORY SHALA W/WO MXML VOL VNTJ Alan Rene MD [address] [place] [address] Phone: tel: fax: [facility] [place] [address] [place] [address] Referral ID Status Reason Start Date Expiration Date V isits Requested Visits Authorized [id number] Closed Auto-Generate d Referral 03/05/2024 04/04/2025 1 1 [facility] Summary Purpose Family History No Family History Records FoundThere may be information available, but it has not been provided by the sender.No Family History Records FoundNo Family History Records FoundNo Family History Records FoundNo Family History Records FoundNo Family History Records FoundNo Family History Records FoundNo Family History Records FoundNo Family History Records FoundNo Family History Records FoundNo Family History Records FoundNo Family History Records FoundNo Family History Records FoundNo Family HistoryRecords FoundNo Family History Records Found Advance Directives No Advanced Directives Records FoundDocuments on File Type Date Recorded Patient Evp General Counsel Expl anation Advance Directive(s) Advance Directive(s) 06/08/2018 12:38 PM Advance Directive(s) 06/08/2018 3:55 PM Advance Directive(s) 03/07/2018 4:15 PM Documents on File Type Date Recorded Patient Evp General Counsel Expl anation Advance Directive(s) Advance Directive(s) 06/08/2018 12:38 PM Advance Directive(s) 06/08/2018 3:55 PM Advance Directive(s) 03/07/2018 4:15 PM Documents on File Type Date Recorded Patient Evp General Counsel Expl anation Advance Directive(s) 06/08/2018 3:55 PM Documents on File Type Date Recorded Patient Evp General Counsel Expl anation Advance Directive(s) 06/08/2018 3:55 PM Advance Directive Response Recorded Date/ Time Advance Directives No April 30, 2015 11:56am Living Will No June 17, 2022 7:35pm Power of Ice Cream Vendor No June 17 7:35pm Chief Complaint Chief Complaint Description Start Date right shoulder pain Preliminary chief co mplaint data, not yet signed by the author as of Assessments There may be information available, but it has not been provided by the sender. Review of System There may be information available, but it has not been provided by the sender. History of Present Illness There may be information available, but it has not been provided by the sender. Reason for Referral Specialty Diagnoses / Procedures Referred By Leti tse Referred To Contact Gynecology Diagnoses Premature ovarian insufficiency Procedures CONSULT TO GYNECOLOGY OFFICE/OUTPATIENT NEW HIGH MDM 60-74 MINUTES Candie Duron MD [address] [place] [address] Referral ID Status Reason Start Date Expiration Date Visits Requested Visits Authorized [id number] Authorized PCP Requested Referral Auto-Generate d Referral 12/30/2021 12/30/2022 1 1 Specialty Diagnoses / Procedures Referred By Leti tse Referred To Contact BR IMAGING Diagnoses Encounter for screening mammogram for breast cancer Dense breast tissue on mammogram Procedures GEM SCREENING W JI SCREENING DIGITAL BREAST TOMOSYNTHESIS BI SCREENING MAMMOGRAPHY BI 2-VIEW BREAST INC CAD Candie Duron MD [address] [place] [address] [facility] [address] [place] [address] Referral ID Status Reason Start Date Expiration Date Visits Requested Visits Authorized [id number] Pending Review Auto-Generat ed Referral 12/30/2021 01/29/2023 1 1 Specialty Diagnoses / Procedures Referred By Leti tse Referred To Contact CT IMAGING Diagnoses Interstitial pulmonary disease (HCC) Procedures CT CHEST WO IVCON DIAGNOSTIC COMPUTED TOMOGRAPHY THORAX W/O CNTRST Alan Rene MD [address] [place] [address] Ct Imaging Referral ID Status Reason Start Date Expiration Date V isits Requested Visits Authorized [id number] Closed Auto-Generate d Referral 12/22/2021 01/26/2022 1 1 Specialty Diagnoses / Procedures Referred By Contac t Referred To Contact Diagnoses Encounter for prophylactic measures, unspecified Procedures COVID TREATMENT REFERRAL COVID TREATMENT REFERRAL Madison Weller APRN.CNP [address] [place] [id number] Referral ID Status Reason Start Date Expiration Date Visits Requested Visits Authorized [id number] Pending Review Auto-Generat ed Referral 01/21/2022 01/21/2023 1 1 Referral ID Status Reason Start Date Expiration Date Visits Requested Visits Authorized [id number] Authorized PCP Requested Referral Auto-Generate d Referral 02/15/2023 1 1 Specialty Diagnoses / Procedures Referred By Contac t Referred To Contact Diagnoses Osteoporosis without current pathological fracture, unspecified osteoporosis type Tayo Rodriguez MD [address] [address] Referral ID Status Reason Start Date Expiration Date V isits Requested Visits Authorized [id number] Pending Review 1 1 Specialty Diagnoses / Procedures Referred By Contac t Referred To Contact Radiology Diagnoses Wheezing SOB (shortness of breath) Abnormal chest x-ray Pneumonitis Bronchiectasis with acute exacerbation (CMS/HCC) Cough, unspecified type Procedures CT chest wo IV contrast Tayo Rodriguez MD [address] [address] Referral ID Status Reason Start Date Expiration Date Visits Requested Visits Authorized [id number] Authorized Perform Procedure 12/23/2022 06/21/2023 1 1 Specialty Diagnoses / Procedures Referred By Contac t Referred To Contact CT IMAGING Diagnoses Interstitial pulmonary disease (HCC) Procedures CT CHEST WO IVCON DIAGNOSTIC COMPUTED TOMOGRAPHY THORAX W/O CNTRST Kacie De Luna MD [address] [place] [address] [place] [address] Referral ID Status Reason Start Date Expiration Date V isits Requested Visits Authorized [id number] Closed Auto-Generate d Referral 12/18/2021 01/17/2023 1 1 Specialty Diagnoses / Procedures Referred By Leti tse Referred To Contact Radiology Diagnoses Encounter for screening mammogram for malignant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 the event this information is protected by the Federal Confidentiality of Alcohol and Drug Abuse Patient Records regulations: The Federal rules restrict any use of the information to criminally investigate or prosecute any alcohol or drug abuse patient.[facility] HospitalIn the event this information is protected by the Federal Confidentiality of Alcohol and Drug Abuse Patient Records regulations: The Federal rules restrict any use of the information to criminally investigate or prosecute any alcohol or drug abuse patient.[facility] HospitalIn the event this information is protected by the Federal Confidentiality of Alcohol and Drug Abuse Patient Records regulations: The Federal rules restrict any use of the information to criminally investigate or prosecute any alcohol or drug abuse patient.[facility] HospitalIn the event this information is protected by the Federal Confidentiality of Alcohol and Drug Abuse Patient Records regulations: The Federal rules restrict any use of the information to criminally investigate or prosecute any alcohol or drug abuse patient.[facility] HospitalIn the event this information is protected by the Federal Confidentiality of Alcohol and Drug Abuse Patient Records regulations: The Federal rules restrict any use of the information to criminally investigate or prosecute any alcohol or drug abuse patient.[facility] HospitalIn the event this information is protected by the Federal Confidentiality of Alcohol and Drug Abuse Patient Records regulations: The Federal rules restrict any use of the information to criminally investigate or prosecute any alcohol or drug abuse patient.[facility] HospitalIn the event this information is protected by the Federal Confidentiality of Alcohol and Drug Abuse Patient Records regulations: The Federal rules restrict any use of the information to criminally investigate or prosecute any alcohol or drug abuse patient.[facility] HospitalIn the event this information is protected by the Federal Confidentiality of Alcohol and Drug Abuse Patient Records regulations: The Federal rules restrict any use of the information to criminally investigate or prosecute any alcohol or drug abuse patient.[facility] HospitalIn the event this information is protected by the Federal Confidentiality of Alcohol and Drug Abuse Patient Records regulations: The Federal rules restrict any use of the information to criminally investigate or prosecute any alcohol or drug abuse patient.[facility] HospitalIn the event this information is protected by the Federal Confidentiality of Alcohol and Drug Abuse Patient Records regulations: The Federal rules restrict any use of the information to criminally investigate or prosecute any alcohol or drug abuse patient.[facility] HospitalIn the event this information is protected by the Federal Confidentiality of Alcohol and Drug Abuse Patient Records regulations: The Federal rules restrict any use of the information to criminally investigate or prosecute any alcohol or drug abuse patient.[facility] HospitalIn the event this information is protected by the Federal Confidentiality of Alcohol and Drug Abuse Patient Records regulations: The Federal rules restrict any use of the information to criminally investigate or prosecute any alcohol or drug abuse patient.[facility] HospitalIn the event this information is protected by the Federal Confidentiality of Alcohol and Drug Abuse Patient Records regulations: The Federal rules restrict any use of the information to criminally investigate or prosecute any alcohol or drug abuse patient.[facility] HospitalIn the event this information is protected by the Federal Confidentiality of Alcohol and Drug Abuse Patient Records regulations: The Federal rules restrict any use of the information to criminally investigate or prosecute any alcohol or drug abuse patient.[facility] HospitalIn the event this information is protected by the Federal Confidentiality of Alcohol and Drug Abuse Patient Records regulations: The Federal rules restrict any use of the information to criminally investigate or prosecute any alcohol or drug abuse patient.[facility] HospitalIn the event this information is protected by the Federal Confidentiality of Alcohol and Drug Abuse Patient Records regulations: The Federal rules restrict any use of the information to criminally investigate or prosecute any alcohol or drug abuse patient.[facility] HospitalIn the event this information is protected by the Federal Confidentiality of Alcohol and Drug Abuse Patient Records regulations: The Federal rules restrict any use of the information to criminally investigate or prosecute any alcohol or drug abuse patient.[facility] HospitalIn the event this information is protected by the Federal Confidentiality of Alcohol and Drug Abuse Patient Records regulations: The Federal rules restrict any use of the information to criminally investigate or prosecute any alcohol or drug abuse patient.[facility] HospitalIn the event this information is protected by the Federal Confidentiality of Alcohol and Drug Abuse Patient Records regulations: The Federal rules restrict any use of the information to criminally investigate or prosecute any alcohol or drug abuse patient.[facility] HospitalIn the event this information is protected by the Federal Confidentiality of Alcohol and Drug Abuse Patient Records regulations: The Federal rules restrict any use of the information to criminally investigate or prosecute any alcohol or drug abuse patient.[facility] HospitalIn the event this information is protected by the Federal Confidentiality of Alcohol and Drug Abuse Patient Records regulations: The Federal rules restrict any use of the information to criminally investigate or prosecute any alcohol or drug abuse patient.[facility] HospitalIn the event this information is protected by the Federal Confidentiality of Alcohol and Drug Abuse Patient Records regulations: The Federal rules restrict any use of the information to criminally investigate or prosecute any alcohol or drug abuse patient.[facility] HospitalIn the event this information is protected by the Federal Confidentiality of Alcohol and Drug Abuse Patient Records regulations: The Federal rules restrict any use of the information to criminally investigate or prosecute any alcohol or drug abuse patient.[facility] HospitalIn the event this information is protected by the Federal Confidentiality of Alcohol and Drug Abuse Patient Records regulations: The Federal rules restrict any use of the information to criminally investigate or prosecute any alcohol or drug abuse patient.[facility] HospitalIn the event this information is protected by the Federal Confidentiality of Alcohol and Drug Abuse Patient Records regulations: The Federal rules restrict any use of the information to criminally investigate or prosecute any alcohol or drug abuse patient.[facility] HospitalIn the event this information is protected by the Federal Confidentiality of Alcohol and Drug Abuse Patient Records regulations: The Federal rules restrict any use of the information to criminally investigate or prosecute any alcohol or drug abuse patient.[facility] HospitalIn the event this information is protected by the Federal Confidentiality of Alcohol and Drug Abuse Patient Records regulations: The Federal rules restrict any use of the information to criminally investigate or prosecute any alcohol or drug abuse patient.[facility] HospitalIn the event this information is protected by the Federal Confidentiality of Alcohol and Drug Abuse Patient Records regulations: The Federal rules restrict any use of the information to criminally investigate or prosecute any alcohol or drug abuse patient.[facility] Care Teams (unrecognized sec tion and content) Internet Researcher Relationship Specialty Start Date End Date Tayo Rodriguez MD PCP - General Family Practice 09/08/15 Sherrie Prather [address] [place] [address] Referring Rheumatology 04/28/20 Internet Researcher Relationship Specialty Start Date End Date Tayo Rodriguez MD PCP - General Family Practice 09/08/15 Crescencio Christiebhumika Jesus [address] [facility] [place] [address] Referring Rheumatology 04/28/20 Internet Researcher Relationship Specialty Start Date End Date Tayo Rodriguez MD PCP - General Family Practice 09/08/15 Crescencio Christiebhumika Jesus [address] [facility] [place] [address] Referring Rheumatology 04/28/20 Internet Researcher Relationship Specialty Start Date End Date Tayo Rodriguez MD PCP - General Family Practice 09/08/15 Crescencio Christiebhumika Jesus [address] [place] [address] Referring Rheumatology 04/28/20 Internet Researcher Relationship Specialty Start Date End Date Tayo Rodriguez MD PCP - General Family Practice 09/08/15 Sherrie Prather Jesus [address] [facility] [address] Referring Rheumatology 04/28/20 Internet Researcher Relationship Specialty Start Date End Date Tayo Rodriguez MD PCP - General Family Practice 09/08/15 Sherrie Pratherv [address] [place] [address] Referring Rheumatology 04/28/20 Internet Researcher Relationship Specialty Start Date End Date Tayo Rodriguez MD PCP - General Family Practice 09/08/15 Sherrie Prather Jesus [address] [facility] [address] Referring Rheumatology 04/28/20 Internet Researcher Relationship Specialty Start Date End Date Tayo Rodriguez MD PCP - General Family Practice 09/08/15 Sherrie Prather Jesus [address] [place] [address] Referring Rheumatology 04/28/20 Internet Researcher Relationship Specialty Start Date End Date Tayo Rodriguez MD PCP - General Family Medicine 09/08/15 Sherrie Pratherv [address] [facility] [address] Referring Rheumatology 04/28/20 Internet Researcher Relationship Specialty Start Date End Date Tayo Rodriguez MD PCP - General Family Medicine 09/08/15 Sherrie Prather Jesus [address] [facility] [address] Referring Rheumatology 04/28/20 Internet Researcher Relationship Specialty Start Date End Date Tayo Rodriguez MD PCP - General Family Medicine 09/08/15 Sherrie Prather Jesus [address] [facility] [address] Referring Rheumatology 04/28/20 Internet Researcher Relationship Specialty Start Date End Date Tayo Rodriguez MD PCP - General Family Medicine 09/08/15 Crescencio, Achal Jesus [address] [place] [address] Referring Rheumatology 04/28/20 Internet Researcher Relationship Specialty Start Date End Date Tayo Rodriguez MD PCP - General Family Medicine 09/08/15 CrescencioSherrie buenohav [address] [place] [address] Referring Rheumatology 04/28/20 Internet Researcher Relationship Specialty Start Date End Date Tayo Rodriguez MD PCP - General Family Medicine 09/08/15 Crescencio Christiebhumika Jesus [address] [place] [address] Referring Rheumatology 04/28/20 Internet Researcher Relationship Specialty Start Date End Date Tayo Rodriguez MD PCP - General Family Medicine 09/08/15 Crescencio Christiebhumika Jesus [address] [place] [address] Referring Rheumatology 04/28/20 Internet Researcher Relationship Specialty Start Date End Date Tayo Rodriguez MD PCP - General Family Medicine 09/08/15 Crescencio Christieal Jesus [address] [place] [address] Referring Rheumatology 04/28/20 Internet Researcher Relationship Specialty Start Date End Date Tayo Rodriguez MD PCP - General Family Medicine 09/08/15 Christie Pratheral Jesus [address] [place] [address] Referring Rheumatology 04/28/20 Internet Researcher Relationship Specialty Start Date End Date Tayo Rodriguez MD PCP - General Family Medicine 09/08/15 Crescencio, Achal Jesus [address] [facility] [address] Referring Rheumatology 04/28/20 Team Status: Active Member Role Status Dates TAYO RODRIGUEZ Family Provider Active No Primary Care Physician Primary Care Provider Active Team Status: Inactive Member Role Status Dates Dr. Erick New , DO Emergency Provider Active No Primary Care Physician Primary Care Provider Active Internet Researcher Relationship Specialty Start Date End Date Tayo Rodriguez MD PCP - General Family Medicine 09/08/15 Crescencio, Achal Jesus [address] [facility] [address] Referring Rheumatology 04/28/20 Internet Researcher Relationship Specialty Start Date End Date Tayo Rodriguez MD PCP - General Family Medicine 09/08/15 Crescencio, Achal Jesus [address] [place] [address] Referring Rheumatology 04/28/20 Internet Researcher Relationship Specialty Start Date End Date Tayo Rodriguez MD PCP - General Family Medicine 09/08/15 Crescencio, Achal Jesus [address] [place] [address] Referring Rheumatology 04/28/20 Internet Researcher Relationship Specialty Start Date End Date Tayo Rodriguez MD PCP - General Family Medicine 09/08/15 Crescencio, Achal Jesus [address] [place] [address] Referring Rheumatology 04/28/20 Internet Researcher Relationship Specialty Start Date End Date Tayo Rodriguez MD PCP - General Family Medicine 09/08/15 Christie Pratheral Jesus [address] [place] [address] Referring Rheumatology 04/28/20 Internet Researcher Relationship Specialty Start Date End Date Tayo Rodriguez MD PCP - General Family Medicine 09/08/15 Sherrie Pratherv [address] [place] [address] Referring Rheumatology 04/28/20 Internet Researcher Relationship Specialty Start Date End Date Tayo Rodriguez MD [address] [place] [address] PCP - General 12/11/20 Tayo Rodriguez MD [address] [place] [address] PCP - Joyce CAMACHO PCP 01/16/22 Internet Researcher Relationship Specialty Start Date End Date Tayo Rodriguez MD PCP - General Family Medicine 09/08/15 Crescencio Achal Jesus [address] [place] [address] Referring Rheumatology 04/28/20 Internet Researcher Relationship Specialty Start Date End Date Tayo Rodriguez MD PCP - General Family Medicine 09/08/15 Crescencio, Achal Jesus [address] [place] [address] Referring Rheumatology 04/28/20 Internet Researcher Relationship Specialty Start Date End Date Tayo Rodriguez MD PCP - General Family Medicine 09/08/15 Sherrie Pratherhav [address] [place] [address] Referring Rheumatology 04/28/20 Internet Researcher Relationship Specialty Start Date End Date Tayo Rodriguez MD PCP - General Family Medicine 09/08/15 Crescencio, Sherrie Phanhav [address] [facility] [address] Referring Rheumatology 04/28/20 Internet Researcher Relationship Specialty Start Date End Date Tayo Rodriguez MD PCP - General Family Medicine 09/08/15 Sherrie Pratherhav [address] [place] [address] Referring Rheumatology 04/28/20 Internet Researcher Relationship Specialty Start Date End Date Tayo Rodriguez MD PCP - General Family Medicine 09/08/15 Sherrie Pratherhav [address] [place] [address] Referring Rheumatology 04/28/20 Internet Researcher Relationship Specialty Start Date End Date Tayo Rodriguez MD PCP - General Family Medicine 09/08/15 Crescencio, Christieal Jesus [address] [place] [address] Referring Rheumatology 04/28/20 Internet Researcher Relationship Specialty Start Date End Date Tayo Rodriguez MD [address] [place] [address] PCP - General 12/11/20 Tayo Rodriguez MD [address] [place] [address] PCP - Joyce CAMACHO PCP 01/16/22 Internet Researcher Relationship Specialty Start Date End Date Tayo Rodriguez MD PCP - General Family Medicine 09/08/15 Sherrie Prather [address] [facility] [address] Referring Rheumatology 04/28/20 Internet Researcher Relationship Specialty Start Date End Date Tayo Rodriguez MD PCP - General Family Medicine 09/08/15 Sherrie [address] [facility] [address] Referring Rheumatology 04/28/20 Internet Researcher Relationship Specialty Start Date End Date Tayo Rodriguez MD PCP - General Family Medicine 09/08/15 Sherrie [address] [facility] [place] [address] Referring Rheumatology 04/28/20 Internet Researcher Relationship Specialty Start Date End Date Tayo Rodriguez MD PCP - General Family Medicine 09/08/15 Sherrie [address] [facility] [place] [address] Referring Rheumatology 04/28/20 Internet Researcher Relationship Specialty Start Date End Date Tayo Rodriguez MD PCP - General Family Medicine 09/08/15 Sherrie [address] [place] [address] Referring Rheumatology 04/28/20 Internet Researcher Relationship Specialty Start Date End Date Tayo Rodriguez MD [address] [place] [address] PCP - General 12/11/20 Tayo Rodriguez MD [address] [place] [address] PCP - Joyce CAMACHO PCP 01/16/22 Internet Researcher Relationship Specialty Start Date End Date Tayo Rodriguez MD PCP - General Family Medicine 09/08/15 Sherrie [address] [place] [address] Referring Rheumatology 04/28/20 Internet Researcher Relationship Specialty Start Date End Date Tayo Rodriguez MD PCP - General Family Medicine 09/08/15 Sherrie [address] [place] [address] Referring Rheumatology 04/28/20 Internet Researcher Relationship Specialty Start Date End Date Tayo Rodriguez MD PCP - General Family Medicine 09/08/15 Sherrie [address] [place] [address] Referring Rheumatology 04/28/20 Internet Researcher Relationship Specialty Start Date End Date Tayo Rodriguez MD PCP - General Family Medicine 09/08/15 Sherrie [address] [place] [address] Referring Rheumatology 04/28/20 Internet Researcher Relationship Specialty Start Date End Date Tayo Rodriguez MD PCP - General Family Medicine 09/08/15 Sherrie [address] [place] [address] Referring Rheumatology 04/28/20 Internet Researcher Relationship Specialty Start Date End Date Tayo Rodriguez MD PCP - General Family Medicine 09/08/15 Sherrie [address] [place] [address] Referring Rheumatology 04/28/20 Internet Researcher Relationship Specialty Start Date End Date Tayo Rodriguez MD PCP - General Family Medicine 09/08/15 Sherrie [address] [place] [address] Referring Rheumatology 04/28/20 Internet Researcher Relationship Specialty Start Date End Date Tayo Rodriguez MD [address] [place] [address] PCP - General 12/10/15 Internet Researcher Relationship Specialty Start Date End Date Tayo Rodriguez MD PCP - General Family Medicine 09/08/15 Sherrie [address] [place] [address] Referring Rheumatology 04/28/20 Internet Researcher Relationship Specialty Start Date End Date Tayo Rodriguez MD PCP - General Family Medicine 09/08/15 Sherrie [address] [place] [address] Referring Rheumatology 04/28/20 Internet Researcher Relationship Specialty Start Date End Date Tayo Rodriguez MD [address] [place] [address] PCP - General 12/10/15 Internet Researcher Relationship Specialty Start Date End Date Tayo Rodriguez MD PCP - General Family Medicine 09/08/15 Sherrie [address] [place] [address] Referring Rheumatology 04/28/20 Internet Researcher Relationship Specialty Start Date End Date Tayo Rodriguez MD PCP - General Family Medicine 09/08/15 Sherrie [address] [place] [address] Referring Rheumatology 04/28/20 Internet Researcher Relationship Specialty Start Date End Date Tayo Rodriguez MD PCP - General Family Medicine 09/08/15 Sherrie [address] [facility] [place] [address] Referring Rheumatology 04/28/20 Internet Researcher Relationship Specialty Start Date End Date Tayo Rodriguez MD [address] [place] [address] PCP - General 12/11/20 Tayo Rodriguez MD [address] [place] [address] PCP - Joyce CAMACHO PCP 01/16/22 Internet Researcher Relationship Specialty Start Date End Date Tayo Rodriguez MD PCP - General Family Medicine 09/08/15 Sherrie [address] [facility] [address] Referring Rheumatology 04/28/20 Internet Researcher Relationship Specialty Start Date End Date Tayo Rodriguez MD PCP - General Family Medicine 09/08/15 Sherrie [address] [facility] [address] Referring Rheumatology 04/28/20 Internet Researcher Relationship Specialty Start Date End Date Tayo Rodriguez MD PCP - General Family Medicine 09/08/15 Sherrie [address] [place] [address] Referring Rheumatology 04/28/20 Internet Researcher Relationship Specialty Start Date End Date Tayo Rodriguez MD PCP - General Family Medicine 09/08/15 Sherrie [address] [place] [address] Referring Rheumatology 04/28/20 Internet Researcher Relationship Specialty Start Date End Date Tayo Rodriguez MD [address] [place] [address] PCP - General 12/11/20 Tayo Rodriguez MD [address] [place] [address] PCP - Joyce CAMACHO PCP 01/16/22 Internet Researcher Relationship Specialty Start Date End Date Tayo Rodriguez MD [address] [place] [address] PCP - General 12/11/20 Tayo Rodriguez MD [address] [place] [address] PCP - Joyce CAMACHO PCP 01/16/22 Internet Researcher Relationship Specialty Start Date End Date Tayo Rodriguez MD [address] [place] [address] PCP - General 12/11/20 Tayo Rodriguez MD [address] [place] [address] PCP - D[employer]aur [employer] PCP 01/16/22 Internet Researcher Relationship Specialty Start Date End Date Tayo Rodriguez MD [address] [place] [address] PCP - General 12/11/20 Tayo Rodirguez MD [address] [place] [address] PCP - [employer] PCP 01/16/22 Internet Researcher Relationship Specialty Start Date End Date Tayo Rodriguez MD [address] [place] [address] PCP - General 12/11/20 Tayo Rodriguez MD [address] [place] [address] PCP - D[employer] PCP 01/16/22 Glendy Ram, fleet operations managerDietitian Teaching 06/07/24 Internet Researcher Relationship Specialty Start Date End Date Tayo Rodriguez MD [address] [place] [address] PCP - General 12/11/20 Tayo Rodriguez MD [address] [place] [address] PCP - D[employer]aur [employer] PCP 01/16/22 Glendy Ram, fleet operations managerDietitian Teaching 06/07/24 Internet Researcher Relationship Specialty Start Date End Date Tayo Rodriguez MD [address] [place] [address] PCP - General 12/11/20 Tayo Rodriguez MD [address] [place] [address] PCP - D[employer] PCP 01/16/22 Glendy Ram, fleet operations managerDietitian Teaching 06/07/24 Internet Researcher Relationship Specialty Start Date End Date Tayo Rodriguez MD PCP - General Family Medicine 09/08/15 Sherrie [address] [place] [address] Referring Rheumatology 04/28/20 Internet Researcher Relationship Specialty Start Date End Date Tayo Rodriguez MD PCP - General Family Medicine 09/08/15 Sherrie [address] [place] [address] Referring Rheumatology 04/28/20 Internet Researcher Relationship Specialty Start Date End Date Tayo Rodriguez MD PCP - General Family Medicine 09/08/15 Sherrie [address] [place] [address] Referring Rheumatology 04/28/20 Internet Researcher Relationship Specialty Start Date End Date Tayo Rodriguez MD PCP - General Family Medicine 09/08/15 Sherrie [address] [place] [address] Referring Rheumatology 04/28/20 Internet Researcher Relationship Specialty Start Date End Date Tayo Rodriguez MD PCP - General Family Medicine 09/08/15 Sherrie [address] [place] [address] Referring Rheumatology 04/28/20 Internet Researcher Relationship Specialty Start Date End Date Tayo Rodriguez MD PCP - General Family Medicine 09/08/15 Sherrie [address] [place] [address] Referring Rheumatology 04/28/20 Internet Researcher Relationship Specialty Start Date End Date Tayo Rodriguez MD PCP - General Family Medicine 09/08/15 Sherrie [address] [place] [address] Referring Rheumatology 04/28/20 Internet Researcher Relationship Specialty Start Date End Date Tayo Rodriguez MD [address] [place] [address] PCP - General 12/11/20 Tayo Rodriguez MD [address] [place] [address] PCP - Dinosaur [employer] PCP 01/16/22 Internet Researcher Relationship Specialty Start Date End Date Tayo Rodriguez MD [address] [place] [address] PCP - General 12/11/20 Tayo Rodriguez MD [address] [place] [address] PCP - Dinosaur [employer] PCP 01/16/22 Internet Researcher Relationship Specialty Start Date End Date Tayo Rodriguez MD [address] [place] [address] PCP - General 12/11/20 Tayo Rodriguez MD [address] [place] [address] PCP - Dinosaur ACO PCP 01/16/22 Goals (unrecognized section and content) Goals may be documented in a n alternate section FOR RECORDS PERTAINING TO PATIENTS WHO ARE OR HAVE BEEN ENROLLED IN A CHEMICAL DEPENDENCY/SUBSTANCEABUSE PROGRAM, SOME INFORMATION MAY BE OMITTED. This clinical summary was aggregated from multiple sources. Caution should be exercised in using it in the provision of clinical care. This summary normalizes information from multiple sources, and as a consequence, information in this document may materially change the coding, format and clinical context of patient data. In addition, data may be omitted in some cases. CLINICAL DECISIONS SHOULD BE BASED ON THE PRIMARY CLINICAL RECORDS. [employer] [facility]. provides no warranty or guarantee of the accuracy or completeness of information in this document.
[2025-02-20 01:43] LABS: D-Dimer Quantitative (DVT/PE) 0.31 FEU/ug/m (0.27-0.49)
[2025-02-20 01:45] VITALS: BP 116/83; PULSE 91; RESP 19; O2SAT 97
[2025-02-20 02:00] VITALS: BP 113/86; PULSE 92; RESP 23; O2SAT 96
--- NOTE | 2025-02-20 02:53 | EX.ED.DYSGE1 ---
HPI History of Present Illness Chief Complaint: Chest Pain Informant: patient and family Narrative Narrative: Patient is a 44-year-old female with past medical history of pulmonary fibrosis and previous DVT currently on Coumadin. She states she has not exercised for almost 2 years but the other day hired a emr trainer and performed a workout routine that included stretching and yoga. She states that she did this event on Tuesday and then on Tuesday noticed pain in the left chest/upper back region. She states that she took wuvo-hyr-hrdisbr medication but it did not seem to help with the symptoms. She denies any nausea vomiting diaphoresis or shortness of breath associated with the pain. She denies any history of coronary artery disease. She does admit to previous blood clots but states she is currently on Coumadin and reports her last INR was 2.0. However because the pain is persistent and not controllable with msep-yjy-ucwexqh medications she presents for evaluation [facility] Medical History (Updated 02/20/25 @ 04:[address] Paul Cruz, DO) Pulmonary interstitial fibrosis Rheumatoid arthritis Lung disease Home Medications ?Medication ?Instructions ?Recorded ?Last Taken ?Type hydroxychloroquine 200 mg tablet 200 mg PO BID 08/14/14 03/20/15 20:00 History 200 mg warfarin 3 mg tablet (Jantoven) 2 mg PO DAILY 08/14/14 03/21/15 17:00 History 3 mg lansoprazole 30 mg capsule,delayed 30 mg PO DAILY 03/10/15 03/22/15 08:00 History release (Prevacid) 30 mg oxycodone-acetaminophen 5 mg-325 1 tab PO Q4H PRN pain 5 days #20 03/30/21 Unknown Rx mg tablet (Endocet) tabs cyclobenzaprine 10 mg tablet 10 mg PO TID PRN Muscle Spasm #12 06/17/22 Unknown Rx TABLETS cyclobenzaprine 10 mg tablet 10 mg PO TID PRN muscle spasm #30 02/20/25 Unknown Rx tabs oxycodone-acetaminophen 5 mg-325 1 tab PO Q6H PRN pain 3 days #12 02/20/25 Unknown Rx mg tablet (Percocet) tabs Allergy/AdvReac Type Severity Reaction Status Date / Time metronidazole (From Flagyl) AdvReac Rash Verified 02/20/25 00:46 Surgical History H/O partial thyroidectomy Social History Smoking Status: Never smoker ROS ROS ED Constitutional Constitutional ED: Denies chills or fever(s) Eyes Eyes: Denies change in vision ENT ENT ED: Denies sore throat Cardiovascular Cardiovascular: Reports chest pain; Denies palpitations or racing heartbeat Respiratory/Chest Respiratory/Chest: Denies cough or dyspnea Gastrointestinal Gastrointestinal: Denies abdominal pain, diarrhea, nausea or vomiting Musculoskeletal Musculoskeletal: Reports back pain Integumentary Denies Abrasions or rash Neurologic Neurologic: Denies headache(s) Hematologic/Lymphatic Hematologic/Lymphatic: Reports easy bleeding and easy bruising EXAM Physical Exam Const Vital Signs: 02/20/25 00:45 02/20/25 00:47 02/20/25 01:45 Temperature 98.2 F Temperature Source Oral Pulse Rate 88 91 Respiratory Rate 27 H 19 H Respiratory Effort Normal Blood Pressure 123/79 H 116/83 H Blood Pressure Mean 93 94 Pulse Ox 100 97 Oxygen Delivery Method Room Air 02/20/25 02:00 02/20/25 02:56 Temperature 98.4 F Temperature Source Pulse Rate 92 82 Respiratory Rate 23 H 17 Respiratory Effort Blood Pressure 113/86 H 114/82 H Blood Pressure Mean 95 92 Pulse Ox 96 99 Oxygen Delivery Method Room Air Positive well nourished and well developed General Appearance ED: well developed; Negative for pallor HEENT HEENT Narrative: Normocephalic atraumatic Eyes PERRL and EOMs intact bilaterally General Eye ED: Negative for scleral icterus Neck supple and no JVD Neck Narrative: No nuchal rigidity or meningeal signs noted Chest Wall Chest Narrative: There is reproducible left upper anterior chest wall pain with palpation No bony deformity or subcutaneous emphysema noted Resp Resp Narrative: Mild tachypnea is noted otherwise no nasal flaring retractions accessory muscle use or stridor Breath sounds are diminished throughout with crackles in the bilateral bases consistent with history of pulmonary fibrosis No signs of respiratory distress Cardio regular rate and regular rhythm Rate: other Other Details: Heart is regular rate and rhythm without murmurs rubs or gallop Radial and carotid pulses are equal and symmetric No carotid bruit noted Back/Spine Back/Spine Narrative: No bony deformity or step-off of the cervical thoracic or lumbar spine No midline tenderness to palpation In the left upper back near the upper left parathoracic muscle belly region is reproducible pain without overlying soft tissue changes to suggest trauma or infection. Extremity normal to inspection Extremity Narrative: No asymmetric edema no pitting edema negative Homans' sign bilaterally Neuro oriented x3, CN's II-XII intact bilaterally and no sensory deficits noted Sensorium / Orientation: alert Motor Exam: strength 5/5 throughout Psych Mood & Affect: anxious Skin no rashes or lesions noted and no wounds General Skin Exam: Negative for jaundice or pallor MDM MDM MDM Narrative Medical decision making narrative: Patient presented to the ER complaining of left chest/upper back pain. She reported that there had been no recent trauma but she did admit to excessive activity as she had begun working out which she had not done for the last few years. She is low risk for acute coronary syndrome and as she is on Coumadin concern for DVT/PE is low. In order to assess for ACS versus cardiac dysrhythmia versus myocarditis versus pulmonary embolus or dissection or pneumonia I did elect to perform basic laboratory studies with EKG D-dimer and chest x-ray. The patient's D-dimer is normal going against PE or dissection. Her troponin is less than 6 which correlates with the normal sinus rhythm noted on her EKG without ischemic finding. 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 Chest x-ray showed pulmonary fibrotic changes without obvious infiltrate or pneumothorax. As the pain appeared more musculoskeletal in nature she was treated with Flexeril and morphine. On reevaluation she did report improvement of the pain and vitals remained normal. Therefore at this time she is low risk for ACS and workup today does not reveal pneumonia or pneumothorax and as a D-dimer is negative I have low concern for PE or dissection and therefore there is no need for further workup in the ER and she is otherwise safe for discharge History & Record Review Discussion w/independent historian: Patient Lab Data Attestation: I reviewed the patient's lab results. Labs: Laboratory Results - last 24 hr 02/20/25 00:55 WBC 7.3 RBC 4.19 L Hgb 10.8 L Hct 35.4 L MCV 84.5 MCH 25.8 L MCHC 30.5 L RDW Std Deviation 42.6 RDW Coeff of Guy 14.0 Plt Count 235 MPV 10.6 Immature Gran % (Auto) 0.500 Neut % (Auto) 71.4 H Lymph % (Auto) 16.5 L Guadalupe % (Auto) 10.6 H Eos % (Auto) 0.7 Baso % (Auto) 0.3 Absolute Neuts (auto) 5.2 Absolute Lymphs (auto) 1.21 Nucleated RBC % 0 PT 21.5 H INR 1.8 D-Dimer Quant (PE/DVT) 0.31 Sodium 138 Potassium 3.8 Chloride 105 Carbon Dioxide 23.8 Anion Gap 9 BUN 14 Creatinine 0.68 L Estim Creat Clear Calc 87.33 Est GFR (MDRD) Non-Af 110 BUN/Creatinine Ratio 20.0 Glucose 111 H Calcium 8.5 Magnesium 1.7 Troponin T High Sens < 6 Radiography Diagnostic Testing: Clinical Impression(s) from Imaging Studies Chest X-Ray 02/20/25 01:30 IMPRESSION: Mild pulmonary interstitial edema. No focal consolidation. Reading Location: [facility] Chest x-ray as interpreted by the emergency medicine physician reveals pulmonary fibrotic changes without acute infiltrate or pneumothorax Discharge Plan Triage Chief Complaint: Chest Pain ED Provider: Paul Cruz Dx/Rx/DC Orders Clinical Impression: Nonspecific chest pain, Muscle strain, Pulmonary fibrosis, Current use of correction anticoagulation Instructions: ED Chest Pain, Uncertain Cause, ED Strain Chest Wall Prescriptions: New oxycodone-acetaminophen [Percocet] 5-325 mg tablet 1 tab PO Q6H PRN (Reason: pain) 3 Days Qty: 12 0RF cyclobenzaprine 10 mg tablet 10 mg PO TID PRN (Reason: muscle spasm) Qty: 30 0RF No Action warfarin [Jantoven] 3 MG tablet 2 mg PO DAILY Patient Comments: blood thinner Rx Instructions: alternates between 3-2.5. took 3 last night hydroxychloroquine 200 MG tablet 200 mg PO BID Patient Comments: prevent heart attack, stroke lansoprazole [Prevacid] 30 MG capsule 30 mg PO DAILY Patient Comments: acid reflex oxycodone-acetaminophen [Endocet] 5-325 mg tablet 1 tab PO Q4H PRN (Reason: pain) 5 Days Qty: 20 0RF cyclobenzaprine 10 mg tablet 10 mg PO TID PRN (Reason: Muscle Spasm) Qty: 12 0RF Primary Care Provider: Solomon Rodriguez: Solomon Rodriguez MD [Primary Care Provider, Orthopedics] Activity Restrictions/Additional Instructions: Your EKG revealed no sign of cardiac ischemia or abnormal heart rhythm. Your troponin was normal going against acute coronary syndrome/active heart damage. Your D-dimer is also normal going against a pulmonary embolus/blood clot. Your history and exam would indicate that symptoms are most likely musculoskeletal. Please use the prescribed medication to help control symptoms. Continue with stretching and heating and amvx-yrn-ptrlaed treatments such as lidocaine patches or IcyHot. Follow-up with your family doctor for repeat evaluation. If symptoms persist or you have any further concerns return to the ER for repeat evaluation. Print Language: Swedish Disposition Disposition: Home, Self Care Discharge Date/Time: 02/20/25 03:04
[2025-02-20 02:56] VITALS: BP 114/82; PULSE 82; RESP 17; TEMP 36.9; O2SAT 99
== END 2025-02-20 03:04 | disposition home or self-care (01) ==
PROVIDERS: Emergency Provider Emergency Medicine; PCP Orthopaedic Surgery Orthopaedic Surgery of the Spine; Visit Provider Emergency Medicine
DX: R07.9 Chest pain, unspecified (principal); J84.10 Pulmonary fibrosis, unspecified; Z79.01 Long term (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 of anticoagulants; Z86.718 Personal history of other venous thrombosis and embolism; S29.012A Strain of muscle and tendon of back wall of thorax, initial encounter; X50.9XXA Other and unspecified overexertion or strenuous movements or postures, initial encounter; Y93.42 Activity, yoga; Y92.89 Other specified places as the place of occurrence of the external cause
CPT/HCPCS: 71046; 80048; 83735; 84484; 85025; 85379; 85610; 93005; 96361; 96374; 96375; 99283; A4216; J2405

== ENCOUNTER 2025-03-25 19:06 | Emergency (ER) | payer BC, SELFPAY ==
[2025-03-25 19:08] VITALS: BP 110/77; PULSE 103; RESP 20; TEMP 35.9; O2SAT 98; BMI 20.7
--- OUTSIDE RECORDS SUMMARY | 2025-03-25 19:26 | XMS RPT_ITS | CCD ---
Author Organization [facility] Care Team Providers Care Head Of Physics Name Role Phone TAYO RODRIGUEZ Admitting Unavailable TAYO RODRIGUEZ Attending Unavailable TAYO RODRIGUEZ Primary Care Unavailable Heike MARIA, Katelyn Tse Unavailable Tayo Rodriguez Unavailable Unavailable Unavailable Unavailable Unavailable Tayo Rodriguez MD Primary Care Provider Crescencio, Achal Jesus Unavailable Unavailable Unavailable Tayo Rodriguez MD Primary [...] Primary Care Unavailable Crescencio, Achal Jesus Unavailable Taliwal, Dr. Tayo Referring Unavailable Taliwal, Dr. Dean Attending Unavailable Taliwal, Dr. Dean Referring Unavailable Taliwal, Dr. Dean Attending Unavailable Taliwal MD, Tayo Primary Care Provider Taliwal MD, Tayo Primary Care Provider Taliwal MD, Tayo Primary Care Provider Taliwal , Tayo Unavailable Yo LOPEZ, Glendy Unavailable Unavailable Taliwal MD, Tayo Unavailable TALIWAL, TAYO Referring Unavailable TALIWAL, ATYO Primary Care Unavailable TALIWAL, TAYO Referring Unavailable TALIWAL, TAYO Primary Care Unavailable TALIWAL, TAYO Referring Unavailable TALIWAL, TAYO Primary Care Unavailable LORA RODRIGUES Attending Unavailable TALIWAL, TAYO Primary Care Unavailable CHACHA JOSE Attending Unavailable TALIWAL, TAYO Primary Care Unavailable TALIWAL TAYO Attending Unavailable TALIWAL, TAYO Primary Care Unavailable TALIWAL, TAYO Attending Unavailable TALIWAL, TAYO Primary Care Unavailable TALIWAL, TAYO Attending Unavailable TALIWAL, TAYO Primary Care Unavailable TALIWAL, TAYO Referring Unavailable TALIWAL, TAYO Primary Care Unavailable TALIWAL, TAYO Referring Unavailable TALIWAL, TAYO Primary Care Unavailable PAUL NOEL Attending Unavailable TALIWAL, TAYO Referring Unavailable TALIWAL, TAYO Primary Care Unavailable Paul Cruz Attending Unavailable Taliwal, Solomon Primary Care Unavailable TALIWAL, TAYO Primary Care Unavailable ANJU, ALAN CAROLINE Referring Unavailable TALIWAL, TAYO Primary Care Unavailable ANJU, ALAN CAROLINE Referring Unavailable TALIWAL, TAYO Primary Care Unavailable ANJU, ALAN CAROLINE Attending Unavailable ANJU, ALAN CAROLINE Referring Unavailable TALIWAL, TAYO Primary Care Unavailable TALIWAL, TAYO Primary Care Unavailable ESMER FRYE Attending Unavailable TALIWAL, TAYO Primary Care Unavailable ESMER FRYE Referring Unavailable TALIWAL, TAYO Primary Care Unavailable STALIN LOYA Referring Unavailable TALIWAL, TAYO Primary Care Unavailable ANJU, ALAN CAROLINE Referring Unavailable TALIWAL, TAYO Primary Care Unavailable ANJU, ALAN CAROLINE Referring Unavailable CARMELLA CABRERA Attending Unavailable TALIWAL, TAYO Primary Care Unavailable TALIWAL, TAYO Primary Care Unavailable CODY RODRIGUESITA Referring Unavailable TALIWAL, TAYO Primary Care Unavailable ESMER FRYE Attending Unavailable TALIWAL, TAYO Referring Unavailable TALIWAL, TAYO Primary Care Unavailable TALIWAL, TAYO Primary Care Unavailable ANJU, ALAN CAROLINE Referring Unavailable TALIWAL, TAYO Primary Care Unavailable ANJU, ALAN CAROLINE Referring Unavailable TALIWAL, TAYO Primary Care Unavailable SHALINI, RALLIS M Referring Unavailable TALIWAL, TAYO Primary Care Unavailable SHALINI, RALLIS M Referring Unavailable TALIWAL, TAYO Primary Care Unavailable ANJU, ALAN CAROLINE Referring Unavailable TALIWAL, TAYO Primary Care Unavailable JOAN SALTER Attending Unavailable TALIWAL, TAYO Primary Care Unavailable ANJU, ALAN CAROLINE Referring Unavailable ANJU, ALAN CAROLINE Attending Unavailable TALIWAL, TAYO Primary Care Unavailable SHALINI RALLIS M Referring Unavailable TALIWAL, TAYO Primary Care Unavailable SHALINI, RALLIS M Referring Unavailable Allergies Allergy Classification Reported Allergen(s) Allergy Type Date of Onset Reaction(s) Facility Cephalosporins (antibiotic) (1 source) cefdinir Drug Allergy 1 Other: See Comments [facility] Nitroimidazoles (antibiotic) (1 source) metroNIDAZOLE Drug Allergy 8 Intolerance, GI Upset [facility] Work Phone: Zinc Acetate (1 source) Zinc Acetate Drug Allergy 7 [facility] Work Phone: (1 source) AMERIGEL drug allergy 7 [facility] Work Phone: (19 sources) cefdinir; Translations: [Omnicef] Drug Allergy [facility] Work Phone: (20 sources) cefdinir; Translations: [CEFDINIR] Drug Allergy 1 Other: See Toni Salazar [facility] (20 sources) metroNIDAZOLE; Translations: [METRONIDAZOLE] Drug Allergy 8 Intolerance, GI Upset, Hives, Diarrhea, Other, Rash [facility] Work Phone: (20 sources) Zinc Acetate; Translations: [ZINC ACETATE] Drug Allergy 7 Hives [facility] Work Phone: (11 sources) Zinc Acetate[place] [facility]; Translations: [ZINC ACETATE-[place] [facility]] Drug Allergy 7 Rash [facility] Work Phone: (1 source) metroNIDAZOLE Drug Allergy 5 [facility] Repository Medications Current Medications Medication Drug Class(es) Dates Sig (Normalized) Sig (Original) acetaminophen 325 mg / oxyCODONE hydrochloride 5 mg oral tablet (1 source) Opioid Agonist Start: 03-30-2021 take 1 tablet by mouth every four hours Oxycodone-Acetami nophen (Endocet) 5-325 mg tablet Active 1 TABLET PO Q4H 20 March 30, 2021 [id number] 200 actuat albuterol 0.09 mg/actuat metered dose [...] Discontinued Start: 08-29-2019 take 1 capsule by [facility] once daily KEFLEX 250 MG CAPS Take one capsule daily by mouth CEPHALEXIN [id number] Katelyn Burroughs PA-C Comment on above: TAKE 1 CAPSULE BY [facility] TWICE A DAY FOR 10 DAYS clobetasol [...] (Alternate therapy) take 1 capsule by mo [facility] twice daily Doxycycline Monohydrate 40 mg [...] Anxiety , MCTD (mixed connective tissue disease) ([facility]) TAKE 1 CAPSULE BY MOUTH EVERY DAY 90 capsule 1 01/15/2025 Active Start: 12-20-2024 take 1 capsule by mo [facility] once daily DULoxetine (Cymbalta) [address] capsule Indications: Anxiety , MCTD (mixed connective tissue disease) ([facility]) Take 1 capsule (20 mg) [...] 1 tablet twice daily HYDROXYCHLOROQUINE SULFATE TABS [id number] Pamela Mcclelland MD Start: 08-14-2014 take 200 mg by mouth twice daily Hydroxychloroquine Active 200 MG PO TWICE A DAY August 13, 2014 11:00pm Comment on above: Take 200 mg by mouth once daily. inhalational spacing device (4vets [facility]) inhaler (2 sources) Start: 12-23-2022 End: 12-23-2023 inhalational spacing device ([facility]) inhaler Indications: Wheezing , SOB (shortness of breath) Use as instructed 1 each 12/23/2022 12/23/2023 Active Start: 12-23-2022 End: 12-23-2023 inhalational spacing device ([facility]) inhaler Indications: Wheezing , SOB (shortness of [...] tablet Indications: Mild intermittent asthma without complication ([facility]HS-HCC) TAKE 1 TABLET BY MOUTH AT BEDTIME 90 tablet 11/07/2024 Active Comment on above: Take 10 mg by mouth daily at bedtime. mycophenolic acid 180 mg delayed release oral tablet (20 sources) Antimetabolite Immunosuppressant Start: 025 take 1 tablet by mouth three times daily mycophenolate (Myfortic) 180 mg EC tablet Indications: MCTD (mixed connective tissue disease) ([facility]) , ILD (interstitial lung disease) (Multi) take [...] 11-Jun-2020 Complete take 4 tablets by mo [facility] twice daily, then take 1 tablet by mouth in the morning, then take 3 tablets by mouth in the evening mycophenolate sodium DR (MYFORTIC) 180 mg EC tablet Take 4 tablets by mouth two times a day. One AM 3 PM Active Comment on above: Take 1 tablet by guicho th once daily. nystatin [id number] unt/ml oral suspension (2 sources) Polyene Antifungal [...] daily Quantity: 90 Refills: 0 Ordered: 15-Jun-2022 Júnior ARIZMENDI Caiohomar Start : 11-Dec-2020 Active Start: 07-16-2014 End: [...] Start : 28-Mar-2020 Complete 168 hr estradiol 0.50555 mg/hr transdermal system (11 sources) Estrogen Start: [...] one time a week. 84 hr estradiol 0.65075 mg/hr / norethindrone acetate 0.96128 mg/hr transdermal system (1 source) Estrogen Start: [...] 04-21-19 ADVIL CAPS PRN PAIN IBUPROFEN CAPS [id number] Pamela Mcclelland MD End: 12-23-2022 take 1 [...] solution (2 sources) Histamine-1 Receptor Inhibitor Start: take 1 drop(s) into the eye(s) twice daily Olopatadine HCl - 0.2 % Ophthalmic Solution INSTILL 1 DROP Twice daily Quantity: 1 Refills: 0 Ordered: 10-May-2022 Tayo Rodriguez MD Start : 10-May-2022 Active omeprazole 20 mg delayed release oral capsule (20 sources) Proton Pump Inhibitor Start: take 1 capsule by mouth once daily PRILOSEC 20 MG ORAL CAPSULE DELAYED RELEASE daily OMEPRAZOLE [id number] Pamela Mcclelland MD End: 09-21-2023 take 1 [...] Onset: 5 01-23-2025 Episodic Nonspecific chest pain (2 sources) Chest pain, unspecified; Translations: [Chest pain, unspecified [...] Other aftercare (1 source) Anticoagulant effect; Translations: [[facility] (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 of anticoagulants] 03-30-2021 Episodic Other aftercare (2 sources) Other terminal carman (current) drug therapy; Translations: [Long-term use of hydroxychloroquine] Onset: 5 Episodic Other circulatory disease (20 sources) Raynaud's disease; Translations: [Raynaud's syndrome without gangrene] Onset: 3 06-15-2007 Chronic Other connective tissue disease (1 source) Pain in hallux; Translations: [Pain in right toe(s)] 03-29-2024 Episodic Other connective tissue disease (4 sources) [...] sources) Long-term current use of anticoagulant; Translations: [[facility] (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 of anticoagulants] Onset: 1 10-23-2010 [...] Test Name Value Interpretation Reference Range Facility Basic Metabolic Profile (BMP )on 02-20-2025 BUN/CRE 20.0 RATIO Normal 10-20 [facility] Comment on above: Performed By: #### L 300.8000, L100.0100, L501.5200, L500.2500, L300.3900 #### [facility] [address] [place], [address] Calcium [Mass/Vol] 8.5 mg/dL Normal 7.6-11.0 [facility] Comment on above: Performed By: #### L 300.8000, L100.0100, L501.5200, L500.2500, L300.3900 #### [facility] [address] [place], [address] Chloride [Moles/Vol] 105 mmol/L Normal 98-108 [facility] Comment on above: Performed By: #### L 300.8000, L100.0100, L501.5200, L500.2500, L300.3900 #### [facility] [address] [place], [address] CO2 [Moles/Vol] 23.8 mmol/L Normal 21.0-32.0 [facility] Comment on above: Performed By: #### L 300.8000, L100.0100, L501.5200, L500.2500, L300.3900 #### [facility] [address] [place], [address] Creatinine [Mass/Vol] 0.68 mg/dL Low 0.70-1.20 [facility] Comment on above: Performed By: #### L 300.8000, L100.0100, L501.5200, L500.2500, L300.3900 #### [facility] [address] [place], [address] ECRCL 87.33 ml/min Normal 50-250 [facility] Comment on above: Performed By: #### L 300.8000, L100.0100, L501.5200, L500.2500, L300.3900 #### [facility] [address] [place], [address] GAP 9 Normal 5-15 [facility] Comment on above: Performed By: #### L 300.8000, L100.0100, L501.5200, L500.2500, L300.3900 #### [facility] [address] [place], [address] GFR/1.73 sq M.predicted among non-blacks MDRD (S/P/Bld) [Vol rate/Area] 110 mL/min/{1.73_m2} Normal >60 [facility] Comment on above: Result Comment: mL/m in/1.73m2 CKD-EPI Creatinine Equation (2020) Performed By: #### L 300.8000, L100.0100, L501.5200, L500.2500, L300.3900 #### [facility] [address] [place], [address] Glucose [Mass/Vol] 111 mg/dL High 70-99 [facility] Comment on above: Performed By: #### L 300.8000, L100.0100, L501.5200, L500.2500, L300.3900 #### [facility] [address] [place], [address] Potassium [Moles/Vol] 3.8 mmol/L Normal 3.3-5.1 [facility] Comment on above: Performed By: #### L 300.8000, L100.0100, L501.5200, L500.2500, L300.3900 #### [facility] [address] [place], [address] Sodium [Moles/Vol] 138 mmol/L Normal 133-145 [facility] Comment on above: Performed By: #### L 300.8000, L100.0100, L501.5200, L500.2500, L300.3900 #### [facility] [address] [place], [address] Urea nitrogen [Mass/Vol] 14 mg/dL Normal 4-19 [facility] Comment on above: Performed By: #### L 300.8000, L100.0100, L501.5200, L500.2500, L300.3900 #### [facility] [address] [place], [address] CBC W/Diff, Automatedon 11-0 5-2024 Absolute Lymph 1.21 X10 3/uL Normal 0.83-4.51 [facility] Comment on above: Performed By: #### L 300.8000, L100.0100, L501.5200, L500.2500, L300.3900 #### [facility] [address] [place], [address] Absolute Neut 5.2 X10 3/uL Normal 2.0-7.7 [facility] Comment on above: Performed By: #### L 300.8000, L100.0100, L501.5200, L500.2500, L300.3900 #### [facility] [address] [place], [address] Basophils/100 WBC (Bld) 0.3 % Normal 0-1 [facility] Comment on above: Performed By: #### L 300.8000, L100.0100, L501.5200, L500.2500, L300.3900 #### [facility] [address] [place], [address] Eosinophils/100 WBC (Bld) 0.7 % Normal 0-5 [facility] Comment on above: Performed By: #### L 300.8000, L100.0100, L501.5200, L500.2500, L300.3900 #### [facility] [address] [place], [address] Erythrocyte distribution width (RBC) [Ratio] 14.0 % Normal 11.6-14.6 [facility] Comment on above: Performed By: #### L 300.8000, L100.0100, L501.5200, L500.2500, L300.3900 #### [facility] [address] [place], [address] Hematocrit (Bld) [Volume fraction] 35.4 % Low 37-47 [facility] Comment on above: Performed By: #### L 300.8000, L100.0100, L501.5200, L500.2500, L300.3900 #### [facility] [address] [place], [address] Hemoglobin (Bld) [Mass/Vol] 10.8 g/dL Low 12.0-15.0 [facility] Comment on above: Performed By: #### L 300.8000, L100.0100, L501.5200, L500.2500, L300.3900 #### [facility] [address] [place], [address] IG% 0.500 Normal 0.0-0.9 [facility] Comment on above: Result Comment: IG% - Immature Granulocytes (promyelocytes, myelocytes and metamyelocytes) > 1% indicates that a LEFT SHIFT is Present. Performed By: #### L 300.8000, L100.0100, L501.5200, L500.2500, L300.3900 #### [facility] [address] [place], [address] Lymphocytes/100 WBC (Bld) 16.5 % Low 19-41 [facility] Comment on above: Performed By: #### L 300.8000, L100.0100, L501.5200, L500.2500, L300.3900 #### [facility] [address] [place], [address] MCH (RBC) [Entitic mass] 25.8 pg Low 27.0-32.0 [facility] Comment on above: Performed By: #### L 300.8000, L100.0100, L501.5200, L500.2500, L300.3900 #### [facility] [address] [place], [address] MCHC (RBC) [Mass/Vol] 30.5 g/dL Low 32-36 [facility] Comment on above: Performed By: #### L 300.8000, L100.0100, L501.5200, L500.2500, L300.3900 #### [facility] [address] [place], [address] MCV (RBC) [Entitic vol] 84.5 fL Normal 81-99 [facility] Comment on above: Performed By: #### L 300.8000, L100.0100, L501.5200, L500.2500, L300.3900 #### [facility] [address] [place], [address] Monocytes/100 WBC (Bld) 10.6 % High 0-10 [facility] Comment on above: Performed By: #### L 300.8000, L100.0100, L501.5200, L500.2500, L300.3900 #### [facility] [address] [place], [address] Neutrophils/100 WBC (Bld) 71.4 % High 47-70 [facility] Comment on above: Performed By: #### L 300.8000, L100.0100, L501.5200, L500.2500, L300.3900 #### [facility] [address] [place], [address] Nucleated RBC (Bld) [#/Vol] 0 10*3/uL Normal 0-5 [facility] Comment on above: Performed By: #### L 300.8000, L100.0100, L501.5200, L500.2500, L300.3900 #### [facility] [address] [place], [address] Platelet mean volume (Bld) [Entitic vol] 10.6 fL Normal 6.2-12.0 [facility] Comment on above: Performed By: #### L 300.8000, L100.0100, L501.5200, L500.2500, L300.3900 #### [facility] [address] [place], [address] Platelets (Bld) [#/Vol] 235 10*3/uL Normal 150-450 [facility] Comment on above: Performed By: #### L 300.8000, L100.0100, L501.5200, L500.2500, L300.3900 #### [facility] [address] [place], [address] RBC (Bld) [#/Vol] 4.19 10*6/uL Low 4.2-5.4 [facility] Comment on above: Performed By: #### L 300.8000, L100.0100, L501.5200, L500.2500, L300.3900 #### [facility] [address] [place], [address] RDW SD 42.6 fl Normal 35.1-43.9 [facility] Comment on above: Performed By: #### L 300.8000, L100.0100, L501.5200, L500.2500, L300.3900 #### [facility] [address] [place], [address] WBC (Bld) [#/Vol] 7.3 10*3/uL Normal 4.4-11.0 [facility] Comment on above: Performed By: #### L 300.8000, L100.0100, L501.5200, L500.2500, L300.3900 #### [facility] [address] [place], [address] Chest PA and Lateralon 02-20 Chest PA and Lateral [facility] Imaging Services [address] [place] [address] Chest PA and Lateral MR#: [id number] Acct: [id number] Name: TAMY VAZQUEZ Rep #: [id number] : 1980 F 44 From: Fernando Gary PCP: Dr. Solomon Rodriguez MD Status: REG ER Study: Chest PA and Lateral Date of Exam: 02/20/25 Exam# [id number] Ordering Dr: Paul Cruz DO PROCEDURE: CHEST PA AND LATERAL 02/19/2025 REASON FOR EXAM: CHEST PAIN TECHNIQUE: Procedure Code: RADCXR Modality: DX Procedure: CHEST PA AND LATERAL COMPARISON: None FINDINGS: Mild pulmonary interstitial edema. No focal consolidation. No pleural effusion or pneumothorax. Cardiac silhouette is within normal limits. No acute fractures. RAD/Chest PA and Lateral IMPRESSION: Mild pulmonary interstitial edema. No focal consolidation. Reading Location: [facility] CC: Dr. Solomon Rodriguez MD; Paul Cruz DO Operations Analyst: Signed Normal [facility] D-Dimer Quantitative (DVT/PE )on 02-20-2025 D-DIMER QUANT 0.31 FEU/ug/m Normal 0.27-0.49 [facility] Comment on above: Result Comment: NORM AL D-Dimer level (<0.50) indicates no DVT or PE. Performed By: #### L 300.8000, L100.0100, L501.5200, L500.2500, L300.3900 #### [facility] [address] [place], [address] Emergency Department Summary on 02-20-2025 Emergency Department Summary [facility] Medical Records Department [address] [place] [address] Emergency Department Summary 02/20/25 MR#: [id number] Acct: [id number] Name: TAMY VAZQUEZ Rep #: [id number] : 1980 44 From: Paul Cruz DO PCP: Dr. Solomon Rodriguez MD Status:DEP ER Location: ED HPI History of Present Illness Chief Complaint: Chest Pain Informant: patient and family Narrative Narrative: Patient is a 44-year-old female with past medical history of pulmonary fibrosis and previous DVT currently on Coumadin. She states she has not exercised for almost 2 years but the other day hired a crew trainer and performed a workout routine that included stretching and yoga. She states that she did this event on Tuesday and then on Tuesday noticed pain in the left chest/upper back region. She states that she took dkmc-lgc-pydvole medication but it did not seem to help with the symptoms. She denies any nausea vomiting diaphoresis or shortness of breath associated with the pain. She denies any history of coronary artery disease. She does admit to previous blood clots but states she is currently on Coumadin and reports her last INR was 2.0. However because the pain is persistent and not controllable with aixw-qjd-pqosnsd medications she presents for evaluation [facility] Medical History (Updated 02/20/25 @ 04:[address] Paul Cruz DO) Pulmonary interstitial fibrosis Rheumatoid arthritis Lung disease Home Medications ???Medication ???Instructions ???Recorded ???Last Taken ???Type hydroxychloroquine 200 mg tablet 200 mg PO BID 08/14/14 03/20/15 20 :00 History 200 mg warfarin 3 mg tablet (Jantoven) 2 mg PO DAILY 08/14/14 03/21/15 17 :00 History 3 mg lansoprazole 30 mg capsule,delayed 30 mg PO DAILY 03/10/15 03/22/15 08:00 History release (Prevacid) 30 mg oxycodone-acetaminophen 5 mg-325 1 tab PO Q4H PRN pain 5 days #20 1 05/31/20 Unknown Rx mg tablet (Endocet) tabs cyclobenzaprine 10 mg tablet 10 mg PO TID PRN Muscle Spasm #12 06/17/22 Unknown Rx TABLETS cyclobenzaprine 10 mg tablet 10 mg PO TID PRN muscle spasm #30 02/20/25 Unknown Rx tabs oxycodone-acetaminophen 5 mg-325 1 tab PO Q6H PRN pain 3 days #12 1 04/22/24 Unknown Rx mg tablet (Percocet) tabs Allergy/AdvReac Type Severity Reaction Status Date / Time metronidazole (From Flagyl) AdvReac Rash Verified 02/20/25 00:46 Surgical History H/O partial thyroidectomy Social History Smoking Status: Never smoker ROS ROS ED Constitutional Constitutional ED: Denies chills or fever(s) Eyes Eyes: Denies change in vision ENT ENT ED: Denies sore throat Cardiovascular Cardiovascular: Reports chest pain; Denies palpitations or racing heartbeat Respiratory/Chest Respiratory/Chest: Denies cough or dyspnea Gastrointestinal Gastrointestinal: Denies abdominal pain, diarrhea, nausea or vomiting Musculoskeletal Musculoskeletal: Reports back pain Integumentary Denies Abrasions or rash Neurologic Neurologic: Denies headache(s) Hematologic/Lymphatic Hematologic/Lymphatic: Reports easy bleeding and easy bruising EXAM Physical Exam Const Vital Signs: 02/20/25 00:45 02/20/25 00:47 02/20/25 01:45 Temperature 98.2 F Temperature Source Oral Pulse Rate 88 91 Respiratory Rate 27 H 19 H Respiratory Effort Normal Blood Pressure 123/79 H 116/83 H Blood Pressure Mean 93 94 Pulse Ox 100 97 Oxygen Delivery Method Room Air 02/20/25 02:00 02/20/25 02:56 Temperature 98.4 F Temperature Source Pulse Rate 92 82 Respiratory Rate 23 H 17 Respiratory Effort Blood Pressure 113/86 H 114/82 H Blood Pressure Mean 95 92 Pulse Ox 96 99 Oxygen Delivery Method Room Air Positive well nourished and well developed General Appearance ED: well developed; Negative for pallor HEENT HEENT Narrative: Normocephalic atraumatic Eyes PERRL and EOMs intact bilaterally General Eye ED: Negative for scleral icterus Neck supple and no JVD Neck Narrative: No nuchal rigidity or meningeal signs noted Chest Wall Chest Narrative: There is reproducible left upper anterior chest wall pain with palpation No bony deformity or subcutaneous emphysema noted Resp Resp Narrative: Mild tachypnea is noted otherwise no nasal flaring retractions accessory muscle use or stridor Breath sounds are diminished throughout with crackles in the bilateral bases consistent with history of pulmonary fibrosis No signs of respiratory distress Cardio regular rate and regular rhythm Rate: other Other Details: Heart is regular rate and rhythm without murmurs rubs or gallop Radial and carotid pulses are equal and symmetric No carotid bruit n (more content not included)... Normal [facility] L501.4021on 02-20-2025 Trop T High Sen < 6 Normal <=14 [facility] Comment on above: Performed By: #### L 501.4021 #### [facility] [address] [place], [place], [address] Magnesiumon 02-20-2025 Magnesium [Mass/Vol] 1.7 mg/dL Normal 1.5-2.2 [facility] Comment on above: Performed By: #### L 300.8000, L100.0100, L501.5200, L500.2500, L300.3900 #### [facility] [address] [place], [address] Prothrombin Time w/INRon INR Coag (PPP) [Relative time] 1.8 {INR} Normal [facility] Comment on above: Performed By: #### L 300.8000, L100.0100, L501.5200, L500.2500, L300.3900 #### [facility] [address] [place], [address] PT Coag (PPP) [Time] 21.5 s High 11.7-14.9 [facility] Comment on above: Performed By: #### L 300.8000, L100.0100, L501.5200, L500.2500, L300.3900 #### [facility] [address] [place], [address] Troponin T HS 2 HRon 025 Trop T High Sen Normal <=14 [facility] Comment on above: Result Comment: Gilbert wolfe via OM: Ordered Performed By: #### L 499.0042 #### [facility] 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 Tech: Rai Parker PRE-BRONCH POST-BRONCH Chang LLN Pred ULN %Pred ZScore Chang %Pred %Chg ZScore SPIROMETRY FVC 1.74 2.47 3.27 4.08 53 -3.18 FEV1 1.40 2.02 2.70 3.34 51 -3.05 FEV1/FVC 0.80 0.71 0.82 0.91 97 -0.32 FEFMax 4.48 5.11 6.79 8.47 66 -2.26 FEF50 1.69 2.05 3.66 5.27 46 -2.02 FIF50 1.67 FEF50/FIF50 1.01 90-100 FIVC 1.67 UAM21-13 1.31 1.63 2.78 4.21 47 -2.19 ExpiredTime [...] 82 % FEV1/FVC_LLN (%) : 71 % UBQ99_ZAD (L/S) : 4.23 L/S YNS72_KLY (L/S) : 0.46 L/S NAJ57_JKXK (L/S) : 1.02 L/S MAC43_NBG (L/S) : 0.48 L/S QXA11_FHB (L/S) : 1.98 L/S BEW00-04%_PRE (L/S) : 1.31 L/S OTN07-37%_PRED (L/S) : 2.78 L/S HOT45-19%_LLN (L/S) : 1.63 L/S PEF_PRE (L/S) : [...] ml/min/mmHg DLCO/VACOR (ML/MIN/MMHG/L) : 0.04 ml/min/mmHg/L Normal [facility] SPIROMETRY BASELINE ONLYon 1 SPIROMETRY BASELINE ONLY [address], [place] [address] Test Date: 2025-01-29 Pat Name: TAMY VAZQUEZ Department: Room: Gender: Female Stock 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 Tech: Rai Parker PRE-BRONCH POST-BRONCH Chang LLN Pred ULN %Pred ZScore Chang %Pred %Chg ZScore SPIROMETRY FVC 1.74 2.47 3.27 4.08 53 -3.18 FEV1 1.40 2.02 2.70 3.34 51 -3.05 FEV1/FVC 0.80 0.71 0.82 0.91 97 -0.32 FEFMax 4.48 5.11 6.79 8.47 66 -2.26 FEF50 1.69 2.05 3.66 5.27 46 -2.02 FIF50 1.67 FEF50/FIF50 1.01 90-100 FIVC 1.67 IIF10-04 1.31 1.63 2.78 4.21 47 -2.19 ExpiredTime [...] used tongue depressor mouthpiece during testing//JR Normal [facility] CT ABD/PEL WO IVCONon 2024 CT ABD/PEL WO IVCON * * *Final Report* * * DATE OF EXAM: Jan 24 2025 8:43AM [facility] 0531 - CT ABD/PEL WO IVCON / [...] nonobstructing nephrolithiasis. No ureteral calculus or hydronephrosis. Operations Analyst: EDGAR Transcribe Date/Time: Jan 24 2025 9:15A Dictated by : GRETEL HERNANDEZ MD This examination was interpreted and the report reviewed and electronically signed by: GRETEL HERNANDEZ MD on Jan 24 2025 9:20AM EST [id number] Normal [facility] CNOVon 01-22-2025 CNOV Office Visit (WOUCA) -------- TAMY VAZQUEZ ([id number]) 1980 F Date Time Provider Department 01/22/25 11:00 AM JOAN SALTER During your visit today, we recorded the following information about you: Temperature Pulse Respiration Blood pressure 97 degrees 72/minute 18/minute 99/68 Weight 54 kg Joan Salter APRN.JEWELRY SALES ASSOCIATE 01/22/2025 11:31 AM Signed [facility] [...] recent menstrual periods. 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 [...] Date - Acute appendicitis 04/06/2021 - Asthma (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) 2014 parathyroidectomy - Menorrhagia fibroids UFE - Nephrolithiasis - Osteoporosis 05/2022 with LOSS T-score -3.0 08/2022 nl urine calcium 260 - Peripheral vascular disease - Personal history of unspecified urinary disorder - PMH - PAST MEDICAL HISTORY OF 04/18/2005 blood clot internal jugular vein, 4 weeks diagnosed - Protein S deficiency ([facility]) 05/19/2002 cavernous sinus thrombosis 4 week - Raynaud's syndrome CTD plaquenil - Rib fracture 06/19/2014 - Seasonal allergies - Uterine fibroid s/p UFE PAST SURGICAL HISTORY Procedure Laterality Date - EMBOLIZATION UTERINE FIBROID 03/18/2013 - LAPAROSCOPIC APPENDECTOMY 03/30/2021 - LAPS ABD PRTMANDOMENTUM DX W/WO SPEC BR/WA SPX 04/18/2004 Laparoscopy for endometriosis at [place] [facility] at [facility], no control afterward, ++relief and [...] to pal (more content not included)... Normal [facility] GABRIEL BY IFA SCREENon 01-22-20 25 Nuclear Ab pattern (S) [Interp] Nuclear fine speckled Normal [facility] Comment on above: Order Comment: Speci men Type: BLOOD SPECIMENOrdering Facility: [facility] Address: [address] [place] [address] Performed By: #### A NAIFS ####[facility] LABCLIA [id number] [place] [address] [place] Nuclear Ab Ql (S) Positive Abnormal Negative [facility] Comment on above: Order Comment: Luis A weathers Type: BLOOD SPECIMENOrdering Facility: [facility] Address: [address] [place] [address] Result Comment: Anti -nuclear antibody test is used as an aid in diagnosis of systemic autoimmune diseases. Where positive and clinically warranted, follow-up using disease-specific testing is recommended. Low positive titers are not uncommon with advanced age, certain chronic infections, and malignancies among others. Test methodology: Indirect fluorescence immunoassay (IFA) using HEp-2 cells. 1:640 Performed By: #### A NAIFS ####[facility] [id number] [place] [address] [place] C3 SerPl-ncon 01-21-2025 Complement C3 [Mass/Vol] 84 mg/dL Low 86-166 [facility] Comment on above: Order Comment: Luis A weathers Type: BLOOD SPECIMENOrdering Facility: [facility] Address: [address] [place] [address] Performed By: #### 1 1572-5, 288-2, 4484-12, 4497-05, 1987-08 ####[facility] [id number] [place] [address] [place] C4 SerPl-mCncon 01-21-2025 Complement C4 [Mass/Vol] 10 mg/dL Low 13-46 [facility] Comment on above: Order Comment: Luis [facility] Type: BLOOD SPECIMENOrdering Facility: [facility] Address: [address] [place] [address] Performed By: #### 1 1572-5, 2884-2, 4484-12, 4497-05, 1987-08 ####[facility] LABIA [id number] [place] [id number] [place] CBC W Auto Differential pane l (Bld)on 01-21-2025 Basophils (Bld) [#/Vol] 10*3/uL Normal <0.11 [facility] Comment on above: Order Comment: Speci men Type: BLOOD SPECIMENOrdering Facility: [facility] Address: [address] [place] [address] Performed By: #### 5 7021-8 ####[facility] MILLWAKLIA [id number] [place] [address] [place] Basophils/100 WBC (Bld) 0.5 % Normal [facility] Comment on above: Order Comment: Speci men Type: BLOOD SPECIMENOrdering Facility: [facility] Address: [address] [place] [address] Performed By: #### 5 7021-8 ####[facility] [id number] [place] [address] [place] Differential cell count method Nom (Bld) Auto Normal [facility] Comment on above: Order Comment: Speci men Type: BLOOD SPECIMENOrdering Facility: [facility] Address: [address] [place] [address] Performed By: #### 5 7021-8 ####[facility] [id number] [place] [address] [place] Eosinophils (Bld) [#/Vol] 0.10 10*3/uL Normal <0.46 [facility] Comment on above: Order Comment: Speci men Type: BLOOD SPECIMENOrdering Facility: [facility] Address: [address] [place] [address] Performed By: #### 5 7021-8 ####[facility] [id number] [place] [address] [place] Eosinophils/100 WBC (Bld) 2.3 % Normal [facility] Comment on above: Order Comment: Speci men Type: BLOOD SPECIMENOrdering Facility: [facility] Address: [address] [place] [address] Performed By: #### 5 7021-8 ####[facility] BRENNONWNCLIA [id number] [place] [address] [place] Erythrocyte distribution width (RBC) [Ratio] 14.3 % Normal 11.5-15.0 [facility] Comment on above: Order Comment: Speci men Type: BLOOD SPECIMENOrdering Facility: [facility] Address: [address] [place] [address] Performed By: #### 5 7021-8 ####[facility]CL[facility] [id number] [place] [address] [place] Hematocrit (Bld) [Volume fraction] 33.7 % Low 36.0-46.0 [facility] Comment on above: Order Comment: Speci men Type: BLOOD SPECIMENOrdering Facility: [facility] Address: [address] [place] [address] Performed By: #### 5 7021-8 ####[facility]ITALNCLIA [id number] [place] [address] [place] Hemoglobin (Bld) [Mass/Vol] 10.8 g/dL Low 11.5-15.5 [facility] Comment on above: Order Comment: Speci men Type: BLOOD SPECIMENOrdering Facility: [facility] Address: [address] [place] [address] Performed By: #### 5 7021-8 ####[facility]ITAL[facility]CL[facility] [id number] [place] [address] [place] Immature granulocytes (Bld) [#/Vol] 10*3/uL Normal <0.10 [facility] Comment on above: Order Comment: Speci men Type: BLOOD SPECIMENOrdering Facility: [facility] Address: [address] [place] [address] Performed By: #### 5 7021-8 ####[facility] [id number] [place] [address] [place] Immature granulocytes/100 WBC (Bld) 0.5 % Normal [facility] Comment on above: Order Comment: Speci men Type: BLOOD SPECIMENOrdering Facility: [facility] Address: [address] [place] [address] Performed By: #### 5 7021-8 ####[facility] [id number] [place] [address] [place] Lymphocytes (Bld) [#/Vol] 1.14 10*3/uL Normal 1.00-4.00 [facility] Comment on above: Order Comment: Speci men Type: BLOOD SPECIMENOrdering Facility: [facility] Address: [address] [place] [address] Performed By: #### 5 7021-8 ####[facility] [id number] [place] [address] [place] Lymphocytes/100 WBC (Bld) 25.7 % Normal [facility] Comment on above: Order Comment: Speci men Type: BLOOD SPECIMENOrdering Facility: [facility] Address: [address] [place] [address] Performed By: #### 5 7021-8 ####[facility] [id number] [place] [address] [place] MCH (RBC) [Entitic mass] 26.3 pg Normal 26.0-34.0 [facility] Comment on above: Order Comment: Speci men Type: BLOOD SPECIMENOrdering Facility: [facility] Address: [address] [place] [address] Performed By: #### 5 7021-8 ####[facility] [id number] [place] [address] [place] MCHC (RBC) [Mass/Vol] 32.0 g/dL Normal 30.5-36.0 [facility] Comment on above: Order Comment: Speci men Type: BLOOD SPECIMENOrdering Facility: [facility] Address: [address] [place] [address] Performed By: #### 5 7021-8 ####[facility]ITALNCALL[facility] [id number] [place] [address] [place] MCV (RBC) [Entitic vol] 82.2 fL Normal 80.0-100.0 [facility] Comment on above: Order Comment: Speci men Type: BLOOD SPECIMENOrdering Facility: [facility] Address: [address] [place] [address] Performed By: #### 5 7021-8 ####[facility] [id number] [place] [address] [place] Monocytes (Bld) [#/Vol] 0.38 10*3/uL Normal <0.87 [facility] Comment on above: Order Comment: Speci men Type: BLOOD SPECIMENOrdering Facility: [facility] Address: [address] [place] [address] Performed By: #### 5 7021-8 ####[facility]OSPITALNCA [id number] [place] [address] [place] Monocytes/100 WBC (Bld) 8.6 % Normal [facility] Comment on above: Order Comment: Speci men Type: BLOOD SPECIMENOrdering Facility: [facility] Address: [address] [place] [address] Performed By: #### 5 7021-8 ####[facility]ITALNCLIA [id number] [place] [address] [place] Neutrophils (Bld) [#/Vol] 2.78 10*3/uL Normal 1.45-7.50 [facility] Comment on above: Order Comment: Speci men Type: BLOOD SPECIMENOrdering Facility: [facility] Address: [address] [place] [address] Performed By: #### 5 7021-8 ####[facility] BRENNONWTAMLIA [id number] [place] [address] [place] Neutrophils/100 WBC (Bld) 62.4 % Normal [facility] Comment on above: Order Comment: Speci men Type: BLOOD SPECIMENOrdering Facility: [facility] Address: [address] [place] [address] Performed By: #### 5 7021-8 ####[facility]ITALL[facility] [id number] [place] [address] [place] Nucleated RBC (Bld) [#/Vol] 10*3/uL Normal <0.01 [facility] Comment on above: Order Comment: Speci men Type: BLOOD SPECIMENOrdering Facility: [facility] Address: [address] [place] [address] Performed By: #### 5 7021-8 ####[facility] [id number] [place] [address] [place] Nucleated RBC/100 WBC (Bld) [Ratio] 0.0 /100 WBC Normal [facility] Comment on above: Order Comment: Speci men Type: BLOOD SPECIMENOrdering Facility: [facility] Address: [address] [place] [address] Performed By: #### 5 7021-8 ####[facility] [id number] [place] [address] [place] Platelet mean volume (Bld) [Entitic vol] 10.1 fL Normal 9.0-12.7 [facility] Comment on above: Order Comment: Speci men Type: BLOOD SPECIMENOrdering Facility: [facility] Address: [address] [place] [address] Performed By: #### 5 7021-8 ####[facility] [id number] [place] [address] [place] Platelets (Bld) [#/Vol] 209 10*3/uL Normal 150-400 [facility] Comment on above: Order Comment: Speci men Type: BLOOD SPECIMENOrdering Facility: [facility] Address: [address] [place] [address] Performed By: #### 5 7021-8 ####[facility]ITALMARCO ANTONIO [id number] [place] [address] [place] RBC (Bld) [#/Vol] 4.10 10*6/uL Normal 3.90-5.20 [facility] Comment on above: Order Comment: Speci men Type: BLOOD SPECIMENOrdering Facility: [facility] Address: [address] [place] [address] Performed By: #### 5 7021-8 ####[facility] [id number] [place] [address] [place] WBC (Bld) [#/Vol] 4.44 10*3/uL Normal 3.70-11.00 [facility] Comment on above: Order Comment: Speci men Type: BLOOD SPECIMENOrdering Facility: [facility] Address: [address] [place] [address] Performed By: #### 5 7021-8 ####[facility]ITALNCLIA [id number] [place] [address] [place] CRP SerPl-mCncon 01-21-2025 CRP [Mass/Vol] 0.3 mg/dL Normal <0.9 [facility] Comment on above: Order Comment: Speci men Type: BLOOD SPECIMENOrdering Facility: [facility] Address: [address] [place] [address] Performed By: #### 1 1572-5, 2885-2, 4485-9, 4498-2, 1988- ####[facility] LABCLIA [id number] [place] [address] [place] Centromere Ab IF Ql (S)on Centromere Ab Qn (S) <0.2 Normal <1.0 [facility] Comment on above: Order Comment: Speci men Type: BLOOD SPECIMENOrdering Facility: [facility] Address: [address] [place] [address] Result Comment: Anti -centromere antibody is used as in aid in diagnosis of systemic sclerosis. Clinical correlation is required. Test Methodology: Multiplex flow immunoassay. Performed By: #### 5 1775-5, 88943-4, 02088-3, 69257-0, 35707-2, 99786-9, 46851-8, 46617-7 ####[facility] LABCLIA [id number] [address] [facility] CENTROMERE AB QUAL Negative Normal Negative [facility] Comment on above: Order Comment: Speci men Type: BLOOD SPECIMENOrdering Facility: [facility] Address: [address] [place] [address] Performed By: #### 5 1775-5, 51100-1, 07249-5, 97878-3, 14462-7, 10676-4, 31828-8, 24182-7 ####[facility] LABCLIA [id number] [place] [id number] [place] Chromatin Ab Qnon 01-21-2025 CHROMATIN AB QUAL Positive Abnormal Negative [facility] Comment on above: Order Comment: Speci men Type: BLOOD SPECIMENOrdering Facility: [facility] Address: [address] [place], [place] [address] Performed By: #### 5 1775-5, 35083-6, 29370-8, 47820-9, 89380-4, 46774-3, 43963-6, 57567-5 ####[facility] LABCLIA [id number] [place] [id number] [place] Chromatin Ab SerPl-aCncon Chromatin Ab Qn >8.0 High <1.0 [facility] Comment on above: Order Comment: Speci men Type: BLOOD SPECIMENOrdering Facility: [facility] Address: [address] [place] [address] Result Comment: Test Methodology: Multiplex flow immunoassay. Performed By: #### 5 1775-5, 05906-5, 98876-6, 60446-4, 40077-1, 34181-1, 05923-5, 11986-1 ####[facility] LABCLIA [id number] [place] [address] [place] [address] [facility] Comprehensive metabolic 2000 panelon 01-21-2025 Albumin [Mass/Vol] 3.6 g/dL Low 3.9-4.9 [facility] Comment on above: Order Comment: Speci men Type: BLOOD SPECIMENOrdering Facility: [facility] Address: [address] [place] [address] Performed By: #### 2 4323-8 ####[facility] [id number] [place] [address] [place] ALP [Catalytic activity/Vol] 91 U/L Normal 34-123 [facility] Comment on above: Order Comment: Speci men Type: BLOOD SPECIMENOrdering Facility: [facility] Address: [address] [place] [address] Performed By: #### 2 4323-8 ####[facility] [id number] [place] [address] [place] ALT [Catalytic activity/Vol] 20 U/L Normal 7-38 [facility] Comment on above: Order Comment: Speci men Type: BLOOD SPECIMENOrdering Facility: [facility] Address: [address] [place] [address] Performed By: #### 2 4323-8 ####[facility]ITALNCLIA [id number] [place] [address] [place] Anion gap [Moles/Vol] 11 mmol/L Normal 8-15 [facility] Comment on above: Order Comment: Speci men Type: BLOOD SPECIMENOrdering Facility: [facility] Address: [address] [place] [address] Performed By: #### 2 4323-8 ####[facility] [id number] [place] [address] [place] AST [Catalytic activity/Vol] 24 U/L Normal 13-35 [facility] Comment on above: Order Comment: Speci men Type: BLOOD SPECIMENOrdering Facility: [facility] Address: [address] [place] [address] Performed By: #### 2 4323-8 ####[facility] [id number] [place] [address] [place] Bilirubin [Mass/Vol] 0.3 mg/dL Normal 0.2-1.3 [facility] Comment on above: Order Comment: Speci men Type: BLOOD SPECIMENOrdering Facility: [facility] Address: [address] [place] [address] Performed By: #### 2 4323-8 ####[facility] [id number] [place] [address] [place] Calcium [Mass/Vol] 8.4 mg/dL Low 8.5-10.2 [facility] Comment on above: Order Comment: Speci men Type: BLOOD SPECIMENOrdering Facility: [facility] Address: [address] [place] [address] Performed By: #### 2 4323-8 ####[facility] [id number] [place] [address] [place] Chloride [Moles/Vol] 106 mmol/L Normal 98-107 [facility] Comment on above: Order Comment: Speci men Type: BLOOD SPECIMENOrdering Facility: [facility] Address: [address] [place] [address] Performed By: #### 2 4323-8 ####[facility]ITALNCL[facility] [id number] [place] [address] [place] CO2 [Moles/Vol] 21 mmol/L Low 22-30 [facility] Comment on above: Order Comment: Speci men Type: BLOOD SPECIMENOrdering Facility: [facility] Address: [address] [place] [address] Performed By: #### 2 4323-8 ####[facility] [id number] [place] [address] [place] Creatinine [Mass/Vol] 0.61 mg/dL Normal 0.58-0.96 [facility] Comment on above: Order Comment: Speci men Type: BLOOD SPECIMENOrdering Facility: [facility] Address: [address] [place] [address] Performed By: #### 2 4323-8 ####[facility] [id number] [place] [address] [place] eGFRcr SerPlBld CKD-EPI 2020 113 mL/min/1.73m??? Normal >=60 [facility] Comment on above: Order Comment: Speci men Type: BLOOD SPECIMENOrdering Facility: [facility] Address: [address] [place] [address] Result Comment: Yvonne mated Glomerular Filtration Rate [...] actual GFR. Performed By: #### 2 4323-8 ####[facility] HOSPITALWNCLI [id number] [place] [address] [place] Glucose [Mass/Vol] 97 mg/dL Normal 74-99 [facility] Comment on above: Order Comment: Speci men Type: BLOOD SPECIMENOrdering Facility: [facility] Address: [address] [place], [place] [address] Result Comment: The [place] [employer] (ADA) provides guidance for cutoff [...] Standards of Medical Care in Diabetes 2016, [place] [employer]. Diabetes Care. 2016.39(Suppl 1). Performed By: #### 2 4323-8 ####[facility] MILLWNCLIA [id number] [place] [address] [place] Potassium [Moles/Vol] 3.8 mmol/L Normal 3.7-5.1 [facility] Comment on above: Order Comment: Dennysi men Type: BLOOD SPECIMENOrdering Facility: [facility] Address: [address] [place] [address] Performed By: #### 2 4323-8 ####[facility] [id number] [place] [address] [place] Sodium [Moles/Vol] 138 mmol/L Normal 136-144 [facility] Comment on above: Order Comment: Speci men Type: BLOOD SPECIMENOrdering Facility: [facility] Address: [address] [place], [place] [id number] Performed By: #### 2 4323-8 ####[facility] [id number] [place] [address] [place] Urea nitrogen [Mass/Vol] 8 mg/dL Normal 7-21 [facility] Comment on above: Order Comment: Speci men Type: BLOOD SPECIMENOrdering Facility: [facility] Address: [address] [place] [address] Performed By: #### 2 4323-8 ####[facility] LING WILLETTMETAMORAMARCO ANTONIO [id number] [place] [address] [place] DNA double strand Ab IA Qn ( S)on 01-21-2025 DNA ANTIBODY 927 IU/mL High <=200 [facility] Comment on above: Order Comment: Speci men Type: BLOOD SPECIMENOrdering Facility: [facility] Address: [address] [place] [address] Result Comment: Nega tive: <200 IU/mL Equivocal: 201-300 IU/mL Moderate Positive: 301-800 IU/mL Strong Positive: >801 IU/mL Performed By: #### 3 2677-7 ####[facility] LABCLIA [id number] [place] [address] [place] DNA ANTIBODY QUALITATIVE INTERPRETATION Positive Abnormal Negative [facility] Comment on above: Order Comment: Speci men Type: BLOOD SPECIMENOrdering Facility: [facility] Address: [address] [place] [address] Performed By: #### 3 2677-7 ####[facility] LABCLIA [id number] [place] [address] [place] CHIDI Jo1 Ab Ser-aCncon 2024 Sabi-1 extractable nuclear Ab Qn (S) <0.2 Normal <1.0 [facility] Comment on above: Order Comment: Speci men Type: BLOOD SPECIMENOrdering Facility: [facility] Address: [address] [place] [address] Performed By: #### 5 1775-5, 46507-9, 74369-1, 86927-3, 31952-0, 04487-7, 28053-8, 43419-6 ####[facility] LABCLIA [id number] [address] [place] CHIDI FINISHING RANGE FEEDER Ab Ser-aCncon 2024 Ribonucleoprotein extractable nuclear Ab Qn (S) <0.2 Normal <1.0 [facility] Comment on above: Order Comment: Speci men Type: BLOOD SPECIMENOrdering Facility: [facility] Address: [address] [place] [address] Performed By: #### 5 1775-5, 76799-0, 67797-4, 55238-8, 73884-4, 71907-1, 50007-9, 82296-0 ####[facility] LABCLIA [id number] [place] [address] [place] Ribonucleoprotein extractable nuclear Ab Qn (S) >8.0 High <1.0 [facility] Comment on above: Order Comment: Speci men Type: BLOOD SPECIMENOrdering Facility: [facility] Address: [address] [place] [address] Performed By: #### 5 1775-5, 27159-4, 96577-9, 05898-7, 58205-8, 56934-3, 43481-8, 53220-1 ####[facility] LABCLIA [id number] [place] [address] [place] CHIDI SM IgG Ser-aCncon 2024 Hill extractable nuclear IgG Qn (S) 1.3 AI High <1.0 [facility] Comment on above: Order Comment: Speci men Type: BLOOD SPECIMENOrdering Facility: [facility] Address: [address] [place] [address] Performed By: #### 5 1775-5, 47374-2, 82788-4, 69152-4, 42030-0, 77059-7, 12245-9, 41156-0 ####[facility] LABCLIA [id number] [place] [id number] [place] CHIDI SS-A Ab Ser-aCncon 01-21 Sjogrens syndrome-A extractable nuclear Ab Qn (S) <0.2 Normal <1.0 [facility] Comment on above: Order Comment: Speci men Type: BLOOD SPECIMENOrdering Facility: [facility] Address: [address] [place] [address] Result Comment: Test Methodology: Multiplex flow immunoassay. Performed By: #### 5 1775-5, 33744-8, 08092-2, 99414-8, 65577-2, 83698-7, 94591-7, 03853-6 ####[facility] LABCLIA [id number] [place] [address] [place] CHIDI SS-B Ab Ser-aCncon 01-21 Sjogrens syndrome-B extractable nuclear Ab Qn (S) 0.2 AI Normal <1.0 [facility] Comment on above: Order Comment: Speci men Type: BLOOD SPECIMENOrdering Facility: [facility] Address: [address] [place] [address] Result Comment: Anti -SSB (anti-La) antibody is used as an aid in diagnosis of a variety of systemic autoimmune diseases, especially for Sjogren's syndrome and systemic lupus erythematosus. Clinical correlation is required. Test Methodology: Multiplex flow immunoassay. Performed By: #### 5 1775-5, 92856-5, 26281-2, 53574-1, 15182-3, 49455-9, 22268-8, 70043-8 ####[facility] LABCLIA [id number] [place] [address] [place] ESR Westergren method (Bld) [Velocity]on 01-21-2025 ESR (Bld) [Velocity] 48 mm/h High 0-20 [facility] Comment on above: Order Comment: Speci men Type: URINE SPECIMEN Ordering Facility: [facility] Address: [address] , [place] [address] Performed By: #### U UNR #### [facility] LAB CLIA [id number] [address] [place] [address] [place] IMMUNOFIXATION SCREEN, SERUM on 01-21-2025 MPA RESULT No M protein is identified. Normal No M protein is identified. [facility] Comment on above: Order Comment: Speci men Type: BLOOD SPECIMENOrdering Facility: [facility] Address: [address] [place] [address] Performed By: #### I FES ####[facility] [id number] [address] [facility] STAFF REVIEW (MPA) Reviewed by Clinton Bar M.D. Normal [facility] Comment on above: Order Comment: Speci men Type: BLOOD SPECIMENOrdering Facility: [facility] Address: [address] [place] [address] Performed By: #### I [facility] ####[facility] [id number] [address] [place] Sabi-1 extractable nuclear Ab Qn (S)on 01-21-2025 SABI 1 ANTIBODY QUAL Negative Normal Negative [facility] Comment on above: Order Comment: Speci men Type: BLOOD SPECIMENOrdering Facility: [facility] Address: [address] [place] [address] Result Comment: Anti -SABI-1 antibody is used as an aid in diagnosis of polymyositis and dermatomyositis especially with pulmonary involvement. A negative result cannot rule out polymyositis or dermatomyositis. Clinical correlation is required. Test Methodology: Multiplex flow immunoassay. Performed By: #### 5 1775-5, 13897-9, 23340-4, 85903-3, 81619-2, 47082-4, 96630-6, 52902-2 ####[facility] [id number] [place] [id number] [place] KAPPA/ROGERS,FREE,SERon 2024 Immunoglobulin light chains.kappa.free (S) [Mass/Vol] 100.4 mg/L High 3.3-19.4 [facility] Comment on above: Order Comment: Speci men Type: BLOOD SPECIMENOrdering Facility: [facility] Address: [address] [place] [address] Result Comment: Rare ly, increased serum free light chains levels may not be detected or accurately quantified due to prozone phenomenon or in high viscosity samples using this immunoturbidimetric assay. Correlation with other laboratory results and clinical findings is recommended. The [place] Free Light Chain was performed using the Binding Site Optilite immunoturbidimetric method. Result obtained with different assay methods or kits cannot be used interchangeably. Performed By: #### K LFRS ####[facility] LABCLIA [id number] [place] [address] [place] Immunoglobulin light chains.kappa/Immunog lobulin light chains.lambda (S) [Mass ratio] 1.43 Normal 0.26-1.65 [facility] Comment on above: Order Comment: Speci men Type: BLOOD SPECIMENOrdering Facility: [facility] Address: [address] [place] [address] Performed By: #### K LFRS ####[facility] LABCLIA [id number] [place] [address] [place] Immunoglobulin light chains.lambda.free [Mass/Vol] 70.0 mg/L High 5.7-26.3 [facility] Comment on above: Order Comment: Speci men Type: BLOOD SPECIMENOrdering Facility: [facility] Address: [address] [place] [address] Result Comment: Rare ly, increased serum free [...] cannot be used interchangeably. Performed By: #### K LFRS ####[facility] LABCLIA [id number] [address] [address] [place] MONOCLONAL PROT UR W/INTERPo n 01-21-2025 STAFF REVIEW ([facility]) Reviewed by Clinton Bar M.D. Normal [facility] Comment on above: Order Comment: Speci men Type: URINE SPECIMENOrdering Facility: [facility] Address: [address] [place] [address] Performed By: #### U RMPA ####[facility] LABCLIA [id number] [address] [facility] UMPA RESULT No M protein is identified. Normal No M protein is identified. [facility] Comment on above: Order Comment: Speci men Type: URINE SPECIMENOrdering Facility: [facility] Address: [address] [place] [address] Performed By: #### U RMPA ####[facility] LABCLIA [id number] [address] STATES OF [facility] PM-SCL ANTIBODYon 01-21-2025 PM-SCL ANTIBODY Negative Normal Negative [facility] Comment on above: Order Comment: Speci men Type: BLOOD SPECIMENOrdering Facility: [facility] Address: [address] [place] [address] Result Comment: INTE RPRETIVE INFORMATION: PM/Scl-100 Antibody, [...] developed and its performance characteristics determined by [employer]. It has not been cleared or approved by the US Food and Drug Administration. This test was performed in a CLIA certified laboratory and is intended for clinical purposes. Performed By: [employer] [address] [place] [address] Director Title: Moris Cooley MD, PhD CLIA Number: [id number] Performed By: #### R NAIII, PM1AB, U3RNP ####[facility] [id number] [place] [address] PROTEIN ELECTROPHORESIS SERU M (P)on 01-21-2025 Albumin [Mass/Vol] 3.54 g/dL Normal 3.43-5.41 [facility] Comment on above: Order Comment: Speci men Type: BLOOD SPECIMENOrdering Facility: [facility] Address: [address] [place] [address] Performed By: #### L [id number] ####[facility] LABIA [id number] [place] [address] [place] Alpha 1 globulin Elph [Mass/Vol] 0.32 g/dL Normal 0.18-0.43 [facility] Comment on above: Order Comment: Speci men Type: BLOOD SPECIMENOrdering Facility: [facility] Address: [address] [place] [address] Performed By: #### L [id number] ####[facility] LABIA [id number] [place] [address] [place] Alpha 2 globulin Elph [Mass/Vol] 0.69 g/dL Normal 0.42-0.98 [facility] Comment on above: Order Comment: Speci men Type: BLOOD SPECIMENOrdering Facility: [facility] Address: [address] [place] [address] Performed By: #### L [id number] ####[facility] LABIA [id number] [place] [id number] [place] Beta globulin Elph [Mass/Vol] 1.10 g/dL Normal 0.61-1.17 [facility] Comment on above: Order Comment: Speci men Type: BLOOD SPECIMENOrdering Facility: [facility] Address: [address] [place] [address] Performed By: #### L [id number] ####[facility] LABIA [id number] [place] [id number] [place] Gamma globulin Elph [Mass/Vol] 1.85 g/dL High 0.53-1.51 [facility] Comment on above: Order Comment: Speci men Type: BLOOD SPECIMENOrdering Facility: [facility] Address: [address] [place] [address] Performed By: #### L [id number] ####[facility] LABCLIA [id number] [place] [id number] [place] M-PROTEIN LOCATION Normal [facility] Comment on above: Order Comment: Speci men Type: BLOOD SPECIMENOrdering Facility: [facility] Address: [address] [place] [address] Result Comment: Not Applicable. Performed By: #### L [id number] ####[facility] LABCLIA [id number] [place] [id number] [place] Protein Fractions [Interp] No definitive M protein is identified on protein electrophoresis. Normal No definitive M protein is identified on protein electrophores is. [facility] Comment on above: Order Comment: Speci men Type: BLOOD SPECIMENOrdering Facility: [facility] Address: [address] [place] [address] Performed By: #### L [id number] ####[facility] LABCLIA [id number] [address] [address] [place] Protein.monoclonal Elph [Mass/Vol] 0.00 g/dL Normal <=0.00 [facility] Comment on above: Order Comment: Speci men Type: BLOOD SPECIMENOrdering Facility: [facility] Address: [address] [place], [place] [address] Performed By: #### L [id number] ####[facility] LABCLIA [id number] [place] [id number] [place] SPE STAFF REVIEW Reviewed by Clinton Bar M.D. Normal [facility] Comment on above: Order Comment: Speci men Type: BLOOD SPECIMENOrdering Facility: [facility] Address: [address] [place] [address] Performed By: #### L [id number] ####[facility] LABCLIA [id number] [place] [id number] [place] Prot SerPl-mCncon 01-21-2025 Protein [Mass/Vol] 7.5 g/dL Normal 6.3-8.0 [facility] Comment on above: Order Comment: Speci men Type: BLOOD SPECIMENOrdering Facility: [facility] Address: [address] [place] [address] Performed By: #### 1 1572-5, 2885-2, 4485-9, 4498-2, 1987-08 ####[facility] LABCLIA [id number] [place] [address] [place] Performed By: #### 2 4323-8 ####[facility] [id number] [place] [address] [place] Prot/Creat Uron 01-21-2025 Protein (U) [Mass/Vol] 13 mg/dL Normal 0-20 [facility] Comment on above: Order Comment: Speci men Type: URINE SPECIMENOrdering Facility: [facility] Address: [address] [place] [address] Performed By: #### 2 890-2, 2888-6 ####[facility] LABIA [id number] [place] [id number] [place] Protein/Creatinine (U) [Mass ratio] 0.21 mg/mg High <0.15 [facility] Comment on above: Order Comment: Speci men Type: URINE SPECIMENOrdering Facility: [facility] Address: [address] [place] [address] Result Comment: Adul t Proteinuria Categories: <0.15 mg/mg is considered normal to mildly increased 0.15 - 0.50 mg/mg is considered moderately increased >0.50 mg/mg is considered severely increased KDIGO. (2013). KDIGO 2012 Clinical Practice Guideline for the Evaluation and Management of Chronic Kidney Disease. Official Journal of the International Society of Nephrology, 3(1), 1-150. Performed By: #### 2 890-2, 2888-6 ####[facility] LABCLIA [id number] [place] [id number] [place] Protein/Creatinine (U) [Mass ratio]on 01-21-2025 Creatinine (U) [Mass/Vol] 61.6 mg/dL Normal 20.0-300.0 [facility] Comment on above: Order Comment: Speci men Type: URINE SPECIMENOrdering Facility: [facility] Address: [address] [place] [address] Performed By: #### 2 890-2, 2888-6 ####[facility] LABIA [id number] [address] STATES OF [facility] RNA POLYMERASE III ABon 10-0 RNA POLYMERASE III AB 7 Units Normal 0-19 [facility] Comment on above: Order Comment: Speci men Type: BLOOD SPECIMENOrdering Facility: [facility] Address: [address] [place] [address] Result Comment: INTE RPRETIVE INFORMATION: RNA Polymerase [...] antibodies associated with SSc, including centromere, Scl-70, U3-FINISHING RANGE FEEDER, PM/Scl, or Th/To. Performed By: [employer] [address] [place] [address] Director Title: Moris Cooley MD, PhD CLIA Number: [id number] Performed By: #### R NAIII, PM1AB, U3RNP ####[facility] [id number] [place] [address] Rheumatoid fact SerPl-aCncon 01-21-2025 Rheumatoid factor Qn [IU]/mL Normal <16 [facility] Comment on above: Order Comment: Speci men Type: BLOOD SPECIMENOrdering Facility: [facility] Address: [address] [place] [address] Performed By: #### 1 1572-5, 2885-2, 4485-9, 4498-2, 1988 ####[facility] LABIA [id number] [place] [address] [place] Ribonucleoprotein extractabl e nuclear Ab Qn (S)on 01-21-2025 ANTI-FINISHING RANGE FEEDER QUAL Positive Abnormal Negative [facility] Comment on above: Order Comment: Luis A weathers Type: BLOOD SPECIMENOrdering Facility: [facility] Address: [address] [place] [address] Performed By: #### 5 1775-5, 10565-1, 73147-4, 09646-2, 85305-5, 82478-3, 16828-4, 18807-1 ####[facility] LABIA [id number] [place] [address] [place] RIBOSOMAL FINISHING RANGE FEEDER QUAL Negative Normal Negative [facility] Comment on above: Order Comment: Luis A weathers Type: BLOOD SPECIMENOrdering Facility: [facility] Address: [address] [place] [address] Result Comment: Anti -Ribosomal RNA (Ribosomal P) antibody is used as an aid in diagnosis of systemic autoimmune diseases especially systemic lupus erythematosus and mixed connective tissue disease. Cross-reactivity with Anti-hill antibody is not uncommon. Clinical correlation is required. Test Methodology: Multiplex flow immunoassay. Performed By: #### 5 1775-5, 08274-4, 62524-0, 68075-8, 04179-6, 26542-4, 40292-4, 68232-2 ####[facility] LABCLIA [id number] [address] [address] [place] SCL-70 extractable nuclear I gG IA Qn (S)on 01-21-2025 SCLERODERMA AB QUAL Negative Normal Negative [facility] Comment on above: Order Comment: Speci men Type: BLOOD SPECIMENOrdering Facility: [facility] Address: [address] [place] [address] Performed By: #### 5 1775-5, 84220-8, 90294-9, 81302-0, 26947-7, 61925-4, 57288-9, 77596-9 ####[facility] LABIA [id number] [place] [address] [place] SCLERODERMA IGG AB 0.4 AI Normal <1.0 [facility] Comment on above: Order Comment: Speci men Type: BLOOD SPECIMENOrdering Facility: [facility] Address: [address] [place] [address] Result Comment: Scl- 70/Scleroderma antibody test is used as an aid in diagnosis of systemic sclerosis especially the diffuse cutaneous form. A negative result cannot rule out systemic sclerosis. The final interpretation should consider clinical picture and other test results such as anti-centromere antibody. Test Methodology: Multiplex flow immunoassay. Performed By: #### 5 1775-5, 80253-1, 11590-3, 12771-8, 36141-1, 01138-5, 45674-3, 33701-8 ####[facility] LABIA [id number] [address] [address] [place] Sjogrens syndrome-A extracta ble nuclear Ab Qn (S)on 01-21-2025 SSA ANTIBODY QUAL Negative Normal Negative [facility] Comment on above: Order Comment: Speci men Type: BLOOD SPECIMENOrdering Facility: [facility] Address: [address] [place] [address] Performed By: #### 5 1775-5, 93299-3, 63517-7, 06496-8, 40350-2, 56417-9, 19337-9, 27759-9 ####[facility] LABCLIA [id number] [address] [address] [place] Sjogrens syndrome-B extracta ble nuclear Ab Qn (S)on 01-21-2025 SSB ANTIBODY QUAL Negative Normal Negative [facility] Comment on above: Order Comment: Speci men Type: BLOOD SPECIMENOrdering Facility: [facility] Address: [address] [place] [address] Performed By: #### 5 1775-5, 30195-5, 41737-5, 38674-1, 54196-3, 41888-0, 77472-6, 84757-6 ####[facility] LABIA [id number] [place] [address] [place] Hill extractable nuclear Ig G Qn (S)on 01-21-2025 SM ANTIBODY QUAL Positive Abnormal Negative [facility] Comment on above: Order Comment: Speci men Type: BLOOD SPECIMENOrdering Facility: [facility] Address: [address] [place] [address] Result Comment: Anti -Sm (Hill) antibody is used as an aid in diagnosis of systemic lupus erythematosus and its presence is associated with renal disease. A negative result cannot rule out systemic lupus erythematosus. Clinical correlation is required. Test Methodology: Multiplex flow immunoassay. Performed By: #### 5 1775-5, 58391-9, 67318-7, 20269-2, 91930-2, 93743-9, 49921-3, 38086-9 ####[facility] LABCLIA [id number] [address] [place] [address] [place] TH/TO ANTIBODYon 01-21-2025 Th-To Ab Line blot Ql (S) Negative Normal Negative [facility] Comment on above: Order Comment: Speci men Type: BLOOD SPECIMENOrdering Facility: [facility] Address: [place] [address] Performed By: #### T HTO ####[facility] LABIA [id number] [place] [address] U3RNP FIBRILLARIN ABon 01-21 U3RNP FIBRILLARIN AB Negative Normal Negative [facility] Comment on above: Order Comment: Speci men Type: BLOOD SPECIMENOrdering Facility: [facility] Address: [place] [address] Result Comment: Inte rpretive Information: Fibrillarin (U3 FINISHING RANGE FEEDER) Antibody, IgG The presence of fibrillarin (U3-FINISHING RANGE FEEDER) IgG antibodies in association with an GABRIEL [...] a multi-ethnic cohort of SSc patients (n=98), U3-FINISHING RANGE FEEDER antibodies detected by immunoblot had an agreement of 98.9 percent with the gold standard immunoprecipitation (IP) assay. Approximately 71 percent (5/7) of the borderline U3-FINISHING RANGE FEEDER results with GABRIEL nucleolar pattern in this cohort were IP negative. This test was developed and its performance characteristics determined by [employer]. It has not been cleared or approved by the [place] Food and Drug Administration. This test was performed in a CLIA certified laboratory and is intended for clinical purposes. Performed By: [employer] [address] [place] [address] Director Title: Moris Cooley MD, PhD CLIA Number: [id number] Performed By: #### R NAIII, PM1AB, U3RNP ####[facility] [id number] [place] [address] URINE PROTEIN ELECTROPHORESI S RANDOM (P)on 01-21-2025 Albumin Elph (U) [Mass fraction] 8.62 % Normal [facility] Comment on above: Order Comment: Speci men Type: URINE SPECIMENOrdering Facility: [facility] Address: [address] [place], [place] [address] Performed By: #### L [id number] ####[facility] LABCLIA [id number] [address] [place] [address] [place] Alpha 1 globulin Elph (U) [Mass fraction] 2.06 % Normal [facility] Comment on above: Order Comment: Speci men Type: URINE SPECIMENOrdering Facility: [facility] Address: [address] [place], [place] [address] Performed By: #### L [id number] ####[facility] LABCLIA [id number] [address] [place] [address] [place] Alpha 2 globulin Elph (U) [Mass fraction] 11.47 % Normal [facility] Comment on above: Order Comment: Speci men Type: URINE SPECIMENOrdering Facility: [facility] Address: [address] [place] [address] Performed By: #### L [id number] ####[facility] LABCLIA [id number] [address] [place] [address] [place] Beta globulin Elph (U) [Mass fraction] 57.96 % Normal [facility] Comment on above: Order Comment: Speci men Type: URINE SPECIMENOrdering Facility: [facility] Address: [address] [place] [address] Performed By: #### L [id number] ####[facility] LABCLIA [id number] [address] [place] [address] [place] Gamma globulin Elph (U) [Mass fraction] 19.89 % Normal [facility] Comment on above: Order Comment: Speci men Type: URINE SPECIMENOrdering Facility: [facility] Address: [address] [place], [place] [address] Performed By: #### L [id number] ####[facility] LABCLIA [id number] [address] [facility] INTERPRETATION COMMENT FOR PROTEIN ELECTROPHORESIS The atypical region is relatively poorly defined and may represent an unusual presentation of polyclonal immunoglobulins, but cannot rule out the presence of a low level M protein. If clinically indicated, monoclonal protein analysis and serum free light chain analysis are suggested to evaluate further for monoclonal gammopathy. Normal [facility] Comment on above: Order Comment: Speci men Type: URINE SPECIMENOrdering Facility: [facility] Address: [address] [place] [address] Performed By: #### L [id number] ####[facility] LABCLIA [id number] [place] [address] [place] Protein Fractions Elph Bhupinder (U) [Interp] An atypical region of restricted mobility is identified on protein electrophoresis. Abnormal No definitive M protein is identified on protein electrophores is. [facility] Comment on above: Order Comment: Speci men Type: URINE SPECIMENOrdering Facility: [facility] Address: [address] [place] [address] Performed By: #### L [id number] ####[facility] LABCLIA [id number] [place] [address] [place] STAFF REVIEW (URINE ELECTRO) Reviewed by Clinton Bar M.D. Normal [facility] Comment on above: Order Comment: Speci men Type: URINE SPECIMENOrdering Facility: [facility] Address: [address] [place] [address] Performed By: #### L [id number] ####[facility] LABCLIA [id number] [place] [id number] [place] Urinalysis complete panel (U )on 01-21-2025 Bacteria LM.HPF (Urine sed) [#/Area] Negative Normal Negative [facility] Comment on above: Order Comment: Speci men Type: URINE SPECIMEN [facility] Facility[facility] Address: [address], [place] [address] Performed By: #### U UNR #### [facility] CLIA [id number] [address] [place] [address] [place] Bilirubin Ql (U) Negative Normal Negative [facility] Comment on above: Order Comment: Speci men Type: URINE SPECIMEN Ordering Facility: [facility] Address: [address] [place] [address] Performed By: #### U UNR #### [facility] CLIA [id number] [facility] [place] [address] [place] Clarity (Unsp spec) Clear Normal Clear [facility] Comment on above: Order Comment: Speci men Type: URINE SPECIMEN Ordering Facility: [facility] Address: [facility] [place] [address] Performed By: #### U UNR #### [facility] CLIA [id number] [address] [place] [address] [place] Color (U) Yellow Normal Yellow [facility] Comment on above: Order Comment: Speci men Type: URINE SPECIMEN Ordering Facility: [facility] Address: [address] [place] [address] Performed By: #### U UNR #### [facility] CLIA [id number] [address] [place] [address] [place] Epithelial cells LM.HPF (Urine sed) [#/Area] Moderate Normal [facility] Comment on above: Order Comment: Speci men Type: URINE SPECIMEN Ordering Facility: [facility] Address: [address] [place] [address] Performed By: #### U UNR #### [facility] CLIA [id number] [facility] [place] [address] [place] Glucose Test strip (U) [Mass/Vol] Negative Normal Negative [facility] Comment on above: Order Comment: Speci men Type: URINE SPECIMEN Ordering Facility: [facility] Address: [facility] [place] [address] Performed By: #### U UNR #### [facility] CLIA [id number] [address] [place] [address] [place] Hemoglobin Ql (U) Negative Normal Negative [facility] Comment on above: Order Comment: Speci men Type: URINE SPECIMEN Ordering Facility: [facility] Address: [address] [place] [address] Performed By: #### U UNR #### [facility] CLIA [id number] [address] [place] [address] [place] Hyaline casts (Urine sed) [#/Area] 0 /[LPF] Normal 0 /LPF [facility] Comment on above: Order Comment: Speci men Type: URINE SPECIMEN Ordering Facility: [facility] Address: [facility] [place] [address] Performed By: #### U UNR #### [facility] CLIA [id number] [address] [place] [address] [place] Ketones Ql (U) Negative Normal Negative [facility] Comment on above: Order Comment: Speci men Type: URINE SPECIMEN Ordering Facility: [facility] Address: [address] [place] [address] Performed By: #### U UNR #### [facility] CLIA [id number] [address] [place] [address] [place] Leukocyte esterase Test strip Ql (U) Trace Abnormal Negative [facility] Comment on above: Order Comment: Speci men Type: URINE SPECIMEN Ordering Facility: [facility] Address: [address] [place] [address] Performed By: #### U UNR #### [facility] CLIA [id number] [address] [place] [address] [place] Nitrite Ql (U) Negative Normal Negative [facility] Comment on above: Order Comment: Speci men Type: URINE SPECIMEN Ordering Facility: [facility] Address: [address] [place] [address] Performed By: #### U UNR #### [facility] CLIA [id number] [facility] [place] [address] [place] pH (U) 7.0 [pH] Normal 5.0-8.0 [facility] Comment on above: Order Comment: Speci men Type: URINE SPECIMEN [facility]ing Facility: [facility] Address: [address] [place] [address] Performed By: #### U UNR #### [facility] CLIA [id number] [address] [place] [address] [place] Protein (U) [Mass/Vol] Negative Normal Negative [facility] Comment on above: Order Comment: Speci men Type: URINE SPECIMEN Ordering Facility: [facility] Address: [facility] [address] Performed By: #### U UNR #### [facility] CLIA [id number] [address] [place] [address] [place] RBC LM.HPF (Urine sed) [#/Area] 0-2 /HPF Normal 0-2 /HPF [facility] Comment on above: Order Comment: Speci men Type: URINE SPECIMEN [facility]ing Facility: [facility] Address: [facility] [address] Performed By: #### U UNR #### [facility] CLIA [id number] [address] [place] [address] [place] Specific gravity (U) [Rel density] 1.014 Normal 1.005-1.030 [facility] Comment on above: Order Comment: Speci men Type: URINE SPECIMEN Ordering Facility: [facility] Address: [address] [place] [address] Performed By: #### U UNR #### [facility] CLIA [id number] [address] [place] [address] [place] Urobilinogen Ql (U) 0.2 EU/dL Normal 0.2-1.0 EU/dL [facility] Comment on above: Order Comment: Speci men Type: URINE SPECIMEN Ordering Facility: [facility] Address: [address], [place] [id number] Performed By: #### U UNR #### [facility] CLIA [id number] [address] [place] [address] [place] WBC LM.HPF (Urine sed) [#/Area] 0-5 /HPF Normal 0-5 /HPF [facility] Comment on above: Order Comment: Speci men Type: URINE SPECIMEN Ordering Facility: [facility] Address: [address] , [place] [id number] Performed By: #### U UNR #### [facility] CLIA [id number] [address] [place] [address] [place] CNOVon 01-16-2025 CNOV Office Visit (RHARMN ) -------- TAMY VAZQUEZ ([id number]) 1980 F Date Time Provider Department 01/16/25 2:30 PM ESMER FRYE During your visit today, we recorded the following information about you: Temperature Pulse Blood pressure Weight 98.1 degrees 80/minute 102/63 52.6 kg Height 1.524 m Esmer Frye MD 01/17/2025 10:53 AM Signed Rheumatology CONSULTATION Date of Service: 01/16/2025 Patient: Tamy Vazquez Medical Record: [id number] Primary Care Physician: Tayo Rodriguez MD Last Rheumatology visit: None at [facility] Referring Provider: No referring provider defined for this encounter. Chief Complaint: No chief complaint on file. Tamy Vazquez is here today specifically for consultation of my opinion in regards to the chief complaint listed above. Correspondence will be shared today via the [employer] electronic health record or through regular mail, where applicable. 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 Loya, who titrated the dose gradually. [...] after physical (more content not included)... Normal [facility] ALT SerPl-cCncon 01-01-2025 ALT [Catalytic activity/Vol] 13 U/L Normal 7-38 [facility] Comment on above: Order Comment: Speci men Type: BLOOD SPECIMENOrdering Facility: [facility] Address: [facility] [address] Performed By: #### 1 742-6, 1920-8, 38755-4 ####[facility] [id number] [place] [address] [place] AST SerPl-cCncon 01-01-2025 AST [Catalytic activity/Vol] 22 U/L Normal 13-35 [facility] Comment on above: Order Comment: Speci men Type: BLOOD SPECIMENOrdering Facility: [facility] Address: [address], [place] [address] Performed By: #### 1 742-6, 1920-8, 75455-2 ####[facility] [id number] [place] [id number] [place] C3 SerPl-mCncon 01-01-2025 Complement C3 [Mass/Vol] 105 mg/dL Normal 86-166 [facility] Comment on above: Order Comment: Speci men Type: BLOOD SPECIMENOrdering Facility: [facility] Address: [facility] [place] [id number] Performed By: #### 4 485-9, 4498-2, 1987-08 ####[facility] LABCLIA [id number] [place] [address] [place] C4 SerPl-mCncon 01-01-2025 Complement C4 [Mass/Vol] 13 mg/dL Normal 13-46 [facility] Comment on above: Order Comment: Speci men Type: BLOOD SPECIMENOrdering Facility: [facility] Address: [facility] [place] [address] Performed By: #### 4 485-9, 4498-2, 1987-08 ####[facility] LABCLIA [id number] [place] [address] [place] CBC W Auto Differential pane l (Bld)on 01-01-2025 Basophils (Bld) [#/Vol] 0.03 10*3/uL Normal <0.11 [facility] Comment on above: Order Comment: Speci men Type: URINE SPECIMEN Ordering Facility: [facility] Address: [address] [place] [address] Performed By: #### U UNR #### [facility] CLIA [id number] [address] [place] [address] [place] Basophils/100 WBC (Bld) 0.7 % Normal [facility] Comment on above: Order Comment: Speci men Type: URINE SPECIMEN Ordering Facility: [facility] Address: [address] [place] [address] Performed By: #### U UNR ####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 EKGon 12-20-2024 Electrocardiogram Ventricular Rate : 8 8 BPM Atrial Rate : 88 BPM P-R Interval : 168 ms QRS Duration : 74 ms Q-T Interval : 376 ms QTC Calculation(Bazett) : 454 ms Calculated P Asbury : 75 degrees Calculated R Asbury : 42 degrees Calculated T Asbury : 46 degrees NORMAL SINUS RHYTHM LOW VOLTAGE QRS BORDERLINE ECG Confirmed by CHACHA JOSE DO ([id number]) on 12/20/2024 2:49:58 PM NAME : TAMY VAZQUEZ PID : [id number] : 1980 Gender : Female Race : ORD : Procedure Date : Dec 20 2024 10:52:11 Edit Date : Dec 20 2024 14:50:00 Diagnosis: NORMAL SINUS RHYTHM LOW VOLTAGE QRS BORDERLINE ECG Confirmed by CHACHA JOSE DO ([id number]) on 12/20/2024 2:49:58 PM Test Reason : Location : 1 : ER ED Overread By : CHACHA JOSE DO Edited By : CHACHA JOSE DO Referred By : , Acquired by : Wojciech CELESTE [facility] Ethanol SerPl-mCncon 025 Ethanol [Mass/Vol] mg/dL Normal <11 [facility] Comment on above: Order Comment: Speci men Type: BLOOD SPECIMEN Ordering Facility: [facility] Address: [address] [place] [address] Performed By: #### 5 643-2, HCG #### [facility] CLIA [id number] [address] [place] HCG QUALITATIVEon 12-20-2024 HCG, QUALITATIVE Negative Normal Negative [facility] Comment on above: Order Comment: Speci men Type: BLOOD SPECIMEN Ordering Facility: [facility] Address: [address] [place] [address] Performed By: #### 5 643-2, HCG #### [facility] CLIA [id number] [address] HIGH SENSITIVITY TROPONIN To n 12-20-2024 Troponin T.cardiac High sensitivity method [Mass/Vol] <6 Normal <12 [facility] Comment on above: Order Comment: Luis A weathers Type: BLOOD SPECIMEN Ordering Facility: [facility] Address: [address] [place] [address] Performed By: #### 2 4323-8, HSTNT, 3040-3 #### [facility] CLIA [id number] [address] [place] Lipase SerPl-cCncon 12-21-19 25 Lipase [Catalytic activity/Vol] 40 U/L Normal 16-61 [facility] Comment on above: Order Comment: Speci men Type: BLOOD SPECIMEN Ordering Facility: [facility] Address: [address] [place] [address] Performed By: #### 2 4323-8, HSTNT, 3040-3 #### [facility] CLIA [id number] [address] [place] PT panel Coag (PPP)on 2024 INR Coag (PPP) [Relative time] 1.9 {INR} High 0.9-1.3 [facility] Comment on above: Order Comment: Speci jasiel Type: BLOOD SPECIMEN Ordering Facility: [facility] Address: [address] [place] [address] Result Comment: Amberly min K Antagonist (VKA) Therapeutic Range: INR 2 to 3 (Target INR of 2.5) Note: For patients treated with VKA drugs, such as warfarin, the [place] [employer] 2012 Guideline recommends [...] Chest 2012, 141:7S-47S Bárbara RA, et al. [facility] 2017, 70: 252-289 Performed By: #### 3 4528-0, 21002-4 #### [facility] CLIA [id number] [address] [place] [address] [place] PT Coag (PPP) [Time] 19.8 s High 9.7-13.0 [facility] Comment on above: Order Comment: Speci men Type: BLOOD SPECIMEN Ordering Facility: [facility] Address: [address] [place] [address] Performed By: #### 3 4528-0, 00018-0 #### [facility] CLIA [id number] [address] [place] [address] [place] TOXICOLOGY SCREEN, ROUTINE U RINEon 12-20-2024 Amphetamines Confirm (U) [Mass/Vol] Negative Normal Negative [facility] Comment on above: Order Comment: Speci men Type: URINE SPECIMEN Ordering Facility: [facility] Address: [address] [place] [address] Result Comment: Cuto ff threshold at 1000 ng/mL. Performed By: #### U TOX2 #### [facility] CLIA [id number] [address] [place] [address] [place] BARBITURATES, URINE Negative Normal Negative [facility] Comment on above: Order Comment: Speci men Type: URINE SPECIMEN Ordering Facility: [facility] Address: [address] [place] [address] Result Comment: Cuto ff threshold at 200 ng/mL. Performed By: #### U TOX2 #### [facility] CLIA [id number] [address] [place] [address] [place] BENZODIAZEPINES, URINE Negative Normal Negative [facility] Comment on above: Order Comment: Speci men Type: URINE SPECIMEN Ordering Facility: [facility] Address: [address] [place] [address] Result Comment: Cuto ff threshold at 200 ng/mL. Performed By: #### U TOX2 #### [facility] CLIA [id number] [address] [place] Cannabinoids Screen Ql (U) Negative Normal Negative [facility] Comment on above: Order Comment: Speci men Type: URINE SPECIMEN Ordering Facility: [facility] Address: [address] [place] [address] Result Comment: Cuto ff threshold at 50 ng/mL. Performed By: #### U TOX2 #### [facility] CLIA [id number] [address] Cocaine Ql (U) Negative Normal Negative [facility] Comment on above: Order Comment: Speci men Type: URINE SPECIMEN Ordering Facility: [facility] Address: [address] [place] [address] Result Comment: Cuto ff threshold at 300 ng/mL. Performed By: #### U TOX2 #### [facility] CLIA [id number] [address] Ethanol (U) [Mass/Vol] <11 Normal <11 [facility] Comment on above: Order Comment: Speci men Type: URINE SPECIMEN Ordering Facility: [facility] Address: [address] [place] [address] Performed By: #### U TOX2 #### [facility] CLIA [id number] [address] fentaNYL Screen Ql (U) Negative Normal Negative [facility] Comment on above: Order Comment: Speci men Type: URINE SPECIMEN Ordering Facility: [facility] Address: [address] [place] [address] Result Comment: Cuto ff threshold at 5 ng/mL. Performed By: #### U TOX2 #### [facility] CLIA [id number] [address] [place] Opiates Screen Ql (U) Negative Normal Negative [facility] Comment on above: Order Comment: Speci men Type: URINE SPECIMEN Ordering Facility: [facility] Address: [address] [place] [address] Result Comment: Cuto ff threshold at 300 ng/mL. Performed By: #### U TOX2 #### [facility] CLIA [id number] [address] [place] oxyCODONE cutoff Screen (U) [Mass/Vol] Negative Normal Negative [facility] Comment on above: Order Comment: Speci men Type: URINE SPECIMEN Ordering Facility: [facility] Address: [address] [place] [address] Result Comment: Cuto ff threshold at 100 ng/mL. Performed By: #### U TOX2 #### [facility] CLIA [id number] [address] [place] Phencyclidine Ql (U) Negative Normal Negative [facility] Comment on above: Order Comment: Speci men Type: URINE SPECIMEN Ordering Facility: [facility] Address: [address] [place] [address] Result Comment: Cuto ff threshold at 25 ng/mL. Performed By: #### U TOX2 #### [facility] CLIA [id number] [address] [place] TYPE + SCREENon 12-20-2024 ABO O Normal [facility] Comment on above: Order Comment: Speci men Type: BLOOD SPECIMEN Ordering Facility: [facility] Address: [address] [place] [address] Performed By: #### 5 643-2, HCG #### [facility] CLIA [id number] [address] [place] Rh Nom (Bld) Positive Normal [facility] Comment on above: Order Comment: Speci men Type: BLOOD SPECIMEN Ordering Facility: [facility] Address: [address] [place] [address] Performed By: #### 5 643-2, HCG #### [facility] CLIA [id number] [address] [place] [address] [facility] TYPE AND SCREEN EXPIRATION 12/23/2024 23:59 [facility] Comment on above: Order Comment: Speci men Type: BLOOD SPECIMEN Ordering Facility: [facility] Address: [facility] [place] [address] Performed By: #### 5 643-2, HCG #### [facility] CLIA [id number] [address] [place] [id number] [facility] XR CHEST 1V FRONTAL PORTon 0 12-20-2024 [...] silhouette. Other: None. IMPRESSION: No acute findings. Operations Analyst: EDGAR Transcribe Date/Time: Dec 20 2024 11:01A Dictated by : RICARDO WATTS MD This examination was interpreted and the report reviewed and electronically signed by: RICARDO WATTS MD on Dec 20 2024 11:02AM EST [id number] [facility] XR PELVIS 1V APon 12-20-2024 XR PELVIS [...] CT 03/27/2020. IMPRESSION: No acute osseous abnormality. Operations Analyst: PSCB Transcribe Date/Time: Dec 20 2024 11:00A Dictated by : SHMUEL KERR DO This examination was interpreted and the report reviewed and electronically signed by: SHMUEL KERR DO on Dec 20 2024 11:04AM EST [id number] Normal [facility] aPTT PPPon 12-20-2024 aPTT Coag (PPP) [Time] 35.0 s High 23.0-32.4 [facility] Comment on above: Order Comment: Speci men Type: BLOOD SPECIMEN Ordering Facility: [facility] Address: [address] [place] [address] Performed By: #### 3 4528-0, 52727-3 #### [facility] CLIA [id number] [address] [facility] Robin 11-23-2024 HARJINDERN Telephone (BARBPremiTech) -------- TAMY VAZQUEZ ([id number]) 1980 F Date Time Provider Department 11/23/24 LORA RODRIGUES During your visit today, we recorded the following information about you: Mona Swenson MA 11/23/2024 11:28 AM Signed Reclast APPROVED 11/12/25 through 11/11/2025 Mona Swenson.MAT TESTER Allergies As of Date: 11/23/2024 Noted Allergy Reaction AMERIGEL (ZINC ACETATE) 08/30/2006 Comments: Loa burning at area CEFDINIR 06/04/2020 14 - Other: See Comments Comments: Dizzy FLAGYL (METRONIDAZOLE) 01/17/2008 5 - Intolerance 8 - GI Upset Comments: Nausea, fatigue, poor appetite Date Reviewed: 11/19/2024 Reviewed by: Jada Edge RN - Fully Assessed Reason for Visit: Insurance Authorization [[id number]] Cmt: Reclucinat--APPROVED Prescriptions as of 11/23/2024 - mycophenolate sodium [...] Encounter Status:Closed by MONA SWENSON on 11/23/24 [facility] CNOVon 10-31-2024 CNOV Office Visit (OBGYWM ) -------- TAMY VAZQUEZ ([id number]) 1980 F Date Time Provider Department 10/31/24 2:30 PM CARMELLA CABRERA During your visit today, we recorded the following information about you: Blood pressure Weight Height 90/64 52.6 kg 1.605 m Carmella Cabrera APRN.JEWELRY SALES ASSOCIATE 10/31/2024 4:59 PM Signed Supervisor Decorating offered: Patient declines. 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, no control afterward, ++relief and [...] discussed with the Patient or Patient's Authorized Pharmacy Aide. As applicable, any other physician, advance practice provider, medical student, or other health professional student that will be observing or involved in the sensitive examination for educational or training purposes was discussed with the Patient or Authorized Pharmacy Aide. The Patient or Authorized Pharmacy Aide has agreed to proceed with the sensitive [...] non-hirsute RONALD (more content not included)... Normal [facility] ECHOon 10-04-2024 Echocardiography Echocardiography Rep ort: Transthoracic Echo [facility] Date of service: 10/04/2024 9:14:43 AM ROOMS COORDINATOR Ordering physician: ALAN RENE Exam indication: Shortness [...] - Exam was compared with the prior CC echocardiographic exam performed on 01/08/2022. There is no significant change. * * * Final * * * [employer] [facility] : [id number] ID Normal [facility] Robin 10-02-2024 CNPCristo Telephone (ENAGAK) -------- TAMY VAZQUEZ ([id number]) 1980 F Date Time Provider Department 10/02/24 [...] and she requested instructions be sent via [employer]. She will answer Real [employer] with her current doses. Mona Swenson.Mona Mark [...] Allergy Reaction AMERIGEL (ZINC ACETATE) 08/30/2006 Comments: Loa burning at area CEFDINIR 06/04/2020 14 - [...] mouth daily at bedtime. - fexofenadine HCl (ERNESTNIE ORAL) Take by mouth as needed. - [...] malignant*06/15/2022 hx (more content not included)... Normal [facility] 25(OH)D3 SerPl-mCncon 2024 25-hydroxyvitamin D3 [Mass/Vol] 35.0 ng/mL Normal 31.0-80.0 [facility] Comment on above: Order Comment: Speci men Type: BLOOD SPECIMENOrdering Facility: [facility] Address: [address] [place] [address] Performed By: #### 1 989-3 ####[facility] [id number] [place] [address] [place] ALT SerPl-cCncon 10-01-2024 ALT [Catalytic activity/Vol] 13 U/L Normal 7-38 [facility] Comment on above: Order Comment: Speci men Type: URINE SPECIMEN Ordering Facility: [facility] Address: [address] [place] [address] Performed By: #### U UNR #### [facility] CLIA [id number] [address] [place] [address] [place] AST SerPl-cCncon 10-01-2024 AST [Catalytic activity/Vol] 22 U/L Normal 13-35 [facility] Comment on above: Order Comment: Speci men Type: URINE SPECIMEN Ordering Facility: [facility] Address: [address] [place] [address] Performed By: #### U UNR #### [facility] CLIA [id number] [address] [place] [address] [place] Basic metabolic 2000 panelon 10-01-2024 Anion gap [Moles/Vol] 12 mmol/L Normal 8-15 [facility] Comment on above: Order Comment: Speci men Type: BLOOD SPECIMENOrdering Facility: [facility] Address: [address] [place] [address] Performed By: #### 2 4321-2, 4485-9, 4498-2, 1988- ####[facility] [id number] [address] [place] [address] [place] Calcium [Mass/Vol] 8.7 mg/dL Normal 8.5-10.2 [facility] Comment on above: Order Comment: Speci men Type: BLOOD SPECIMENOrdering Facility: [facility] Address: [address] [place], [place] [address] Performed By: #### 2 432-2, 4484-9, 4497-05, 1987-08 ####[facility]IA [id number] [address] [address] [place] Chloride [Moles/Vol] 106 mmol/L Normal 98-107 [facility] Comment on above: Order Comment: Speci men Type: BLOOD SPECIMENOrdering Facility: [facility] Address: [address] [place] [address] Performed By: #### 2 432-2, 4484-12, 4497-05, 1987-08 ####[facility] [id number] [place] [id number] [place] CO2 [Moles/Vol] 23 mmol/L Normal 22-30 [facility] Comment on above: Order Comment: Speci men Type: BLOOD SPECIMENOrdering Facility: [facility] Address: [address] [place], [place] [address] Performed By: #### 2 432-2, 9, 4497-05, 1987-08 ####[facility] [id number] [address] [address] [place] Creatinine [Mass/Vol] 0.68 mg/dL Normal 0.58-0.96 [facility] Comment on above: Order Comment: Speci men Type: BLOOD SPECIMENOrdering Facility: [facility] Address: [address] [place], [place] [address] Performed By: #### 2 4321-2, 9, 4497-05, 1987-08 ####[facility] [id number] [address] [facility] Creatinine and Glomerular filtration rate.predicted panel (S/P/Bld) 110 mL/min/1.73m??? Normal >=60 [facility] Comment on above: Order Comment: Luis A weathers Type: BLOOD SPECIMENOrdering Facility: [facility] Address: [address] [place] [address] Result Comment: Yvonne mated Glomerular Filtration Rate [...] reflect actual GFR. Performed By: #### 2 4321-2, 4485-9, 4497-05, 1987-08 ####[facility] [id number] [address] [place] Glucose [Mass/Vol] 79 mg/dL Normal 74-99 [facility] Comment on above: Order Comment: Luis A weathers Type: BLOOD SPECIMENOrdering Facility: [facility] Address: [address] [place] [address] Result Comment: The [place] Diabetes Association (ADA) provides guidance for cutoff [...] Standards of Medical Care in Diabetes 2016, [place] [employer] Association. Diabetes Care. 2016.39(Suppl 1). Performed By: #### 2 4321-2, 4485-9, 449-, 1987-08 ####[facility] [id number] [address] [address] [place] Potassium [Moles/Vol] 3.9 mmol/L Normal 3.7-5.1 [facility] Comment on above: Order Comment: Speci men Type: BLOOD SPECIMENOrdering Facility: [facility] Address: [address] [place], [place] [address] Performed By: #### 2 4321-2, 4485-9, 4498-2, 1987-08 ####[facility]IA [id number] [place] [id number] [place] Sodium [Moles/Vol] 141 mmol/L Normal 136-144 [facility] Comment on above: Order Comment: Speci men Type: BLOOD SPECIMENOrdering Facility: [facility] Address: [address] [place] [address] Performed By: #### 2 432-2, 448-9, 4497-05, 1987-08 ####[facility] [id number] [place] [id number] [place] Urea nitrogen [Mass/Vol] 9 mg/dL Normal 7-21 [facility] Comment on above: Order Comment: Speci men Type: BLOOD SPECIMENOrdering Facility: [facility] Address: [address] [place] [address] Performed By: #### 2 4321-2, 448-9, 2, 1987-08 ####[facility] [id number] [place] [id number] [place] C3 SerPl-mCncon 10-01-2024 Complement C3 [Mass/Vol] 88 mg/dL Normal 86-166 [facility] Comment on above: Order Comment: Speci men Type: BLOOD SPECIMENOrdering Facility: [facility] Address: [address] [place] [address] Performed By: #### 2 4321-2, 448-9, 4497-2, 1987-08 ####[facility] LAB[facility]IA [id number] [place] [address] [place] C4 SerPl-mCncon 10-01-2024 Complement C4 [Mass/Vol] 11 mg/dL Low 13-46 [facility] Comment on above: Order Comment: Speci men Type: BLOOD SPECIMENOrdering Facility: [facility] Address: [facility] [address] Performed By: #### 2 4321-2, 4485-9, 4498-2, 1987- ####[facility] LAB[facility]IA [id number] [place] [address] [place] CBC W Auto Differential pane l (Bld)on 10-01-2024 Basophils (Bld) [#/Vol] 10*3/uL Normal <0.11 [facility] Comment on above: Order Comment: Speci men Type: URINE SPECIMEN Ordering Facility: [facility] Address: [facility] [address] Performed By: #### U UNR #### [facility] CLIA [id number] [address] [place] [address] [place] Basophils/100 WBC (Bld) 0.5 % Normal [facility] Comment on above: Order Comment: Speci men Type: URINE SPECIMEN Ordering Facility: [facility] Address: [facility] [address] Performed By: #### U UNR #### [facility] CLIA [id number] [address] [place] [address] [place] Differential cell count method Nom (Bld) Auto Normal [facility] Comment on above: Order Comment: Speci men Type: URINE SPECIMEN Ordering Facility: [facility] Address: [facility] [address] Performed By: #### U UNR #### [facility] CLIA [id number] [address] [place] [address] [place] Eosinophils (Bld) [#/Vol] 0.20 10*3/uL Normal <0.46 [facility] Comment on above: Order Comment: Speci men Type: URINE SPECIMEN Ordering Facility: [facility] Address: [address] [facility] [id number] Performed By: #### U UNR #### [facility] CLIA [id number] [address] [place] [address] [place] Eosinophils/100 WBC (Bld) 4.8 % Normal [facility] Comment on above: Order Comment: Speci men Type: URINE SPECIMEN Ordering Facility: [facility] Address: [address] [place] [address] Performed By: #### U UNR #### [facility] CLIA [id number] [address] [place] [address] [place] Erythrocyte distribution width (RBC) [Ratio] 13.3 % Normal 11.5-15.0 [facility] Comment on above: Order Comment: Speci men Type: URINE SPECIMEN Ordering Facility: [facility] Address: [address] [place] [address] Performed By: #### U UNR #### [facility] CLIA [id number] [address] [place] [address] [place] Hematocrit (Bld) [Volume fraction] 36.9 % Normal 36.0-46.0 [facility] Comment on above: Order Comment: Speci men Type: URINE SPECIMEN Ordering Facility: [facility] Address: [address] [place] [address] Performed By: #### U UNR #### [facility] CLIA [id number] [address] [place] [address] [place] Hemoglobin (Bld) [Mass/Vol] 11.7 g/dL Normal 11.5-15.5 [facility] Comment on above: Order Comment: Speci men Type: URINE SPECIMEN Ordering Facility: [facility] Address: [address] [place] [address] Performed By: #### U UNR #### [facility] CLIA [id number] [address] [place] [address] [place] Immature granulocytes (Bld) [#/Vol] 10*3/uL Normal <0.10 [facility] Comment on above: Order Comment: Speci men Type: URINE SPECIMEN Ordering Facility: [facility] Address: [facility] [place] [address] Performed By: #### U UNR #### [facility] CLIA [id number] [facility] [place] [address] [place] Immature granulocytes/100 WBC (Bld) 0.2 % Normal [facility] Comment on above: Order Comment: Speci men Type: URINE SPECIMEN Ordering Facility: [facility] Address: [address] [place], [place] [address] [place] [address] Performed By: #### U UNR #### [facility] CLIA [id number] [address] [place] [address] [place] Lymphocytes (Bld) [#/Vol] 1.10 10*3/uL Normal 1.00-4.00 [facility] Comment on above: Order Comment: Speci men Type: URINE SPECIMEN Ordering Facility: [facility] Address: [facility] [place] [address] Performed By: #### U UNR #### [facility] CLIA [id number] [address] [place] [address] [place] Lymphocytes/100 WBC (Bld) 26.2 % Normal [facility] Comment on above: Order Comment: Speci men Type: URINE SPECIMEN Ordering Facility: [facility] Address: [facility] [place] [address] Performed By: #### U UNR #### [facility] CLIA [id number] [address] [place] [address] [place] MCH (RBC) [Entitic mass] 26.7 pg Normal 26.0-34.0 [facility] Comment on above: Order Comment: Speci men Type: URINE SPECIMEN Ordering Facility: [facility] Address: [address] [place] [address] Performed By: #### U UNR #### [facility] CLIA [id number] [address] [place] [address] [place] MCHC (RBC) [Mass/Vol] 31.7 g/dL Normal 30.5-36.0 [facility] Comment on above: Order Comment: Speci men Type: URINE SPECIMEN [facility]ing Facility: [facility] Address: [address] [place] [address] Performed By: #### U UNR #### [facility] CLIA [id number] [address] [place] [address] [place] MCV (RBC) [Entitic vol] 84.1 fL Normal 80.0-100.0 [facility] Comment on above: Order Comment: Speci men Type: URINE SPECIMEN Ordering Facility: [facility] Address: [address] [place] [address] Performed By: #### U UNR #### [facility] CLIA [id number] [address] [place] [address] [place] Monocytes (Bld) [#/Vol] 0.39 10*3/uL Normal <0.87 [facility] Comment on above: Order Comment: Speci men Type: URINE SPECIMEN Ordering Facility: [facility] Address: [address] [place] [address] Performed By: #### U UNR #### [facility] CLIA [id number] [address] [place] [address] [place] Monocytes/100 WBC (Bld) 9.3 % Normal [facility] Comment on above: Order Comment: Speci men Type: URINE SPECIMEN Ordering Facility: [facility] Address: [address] [place] [address] Performed By: #### U UNR #### [facility] CLIA [id number] [address] [address] [place] Neutrophils (Bld) [#/Vol] 2.48 10*3/uL Normal 1.45-7.50 [facility] Comment on above: Order Comment: Speci men Type: URINE SPECIMEN Ordering Facility: [facility] Address: [address] [place] [address] Performed By: #### U UNR #### [facility] CLIA [id number] [address] [place] [id number] [place] Neutrophils/100 WBC (Bld) 59.0 % Normal [facility] Comment on above: Order Comment: Speci men Type: URINE SPECIMEN Ordering Facility: [facility] Address: [address] [place] [address] Performed By: #### U UNR #### [facility] CLIA [id number] [address] [place] [address] [place] Nucleated RBC (Bld) [#/Vol] 10*3/uL Normal <0.01 [facility] Comment on above: Order Comment: Speci men Type: URINE SPECIMEN Ordering Facility: [facility] Address: [address] [place] [address] Performed By: #### U UNR #### [facility] CLIA [id number] [address] [place] [id number] [place] Nucleated RBC/100 WBC (Bld) [Ratio] 0.0 /100 WBC Normal [facility] Comment on above: Order Comment: Speci men Type: URINE SPECIMEN Ordering Facility: [facility] Address: [address] [place] [address] Performed By: #### U UNR #### [facility] CLIA [id number] [address] [place] [id number] [place] Platelet mean volume (Bld) [Entitic vol] 11.4 fL Normal 9.0-12.7 [facility] Comment on above: Order Comment: Speci men Type: URINE SPECIMEN Ordering Facility: [facility] Address: [address] [place] [address] Performed By: #### U UNR #### [facility] CLIA [id number] [address] [place] [address] [place] Platelets (Bld) [#/Vol] 201 10*3/uL Normal 150-400 [facility] Comment on above: Order Comment: Speci men Type: URINE SPECIMEN Ordering Facility: [facility] Address: [address] [place] [address] Performed By: #### U UNR #### [facility] CLIA [id number] [address] [place] [address] [place] RBC (Bld) [#/Vol] 4.39 10*6/uL Normal 3.90-5.20 [facility] Comment on above: Order Comment: Speci men Type: URINE SPECIMEN Ordering Facility: [facility] Address: [address] [place] [address] Performed By: #### U UNR #### [facility] CLIA [id number] [address] [place] [address] [place] WBC (Bld) [#/Vol] 4.20 10*3/uL Normal 3.70-11.00 [facility] Comment on above: Order Comment: Speci men Type: URINE SPECIMEN Ordering Facility: [facility] Address: [address] [place] [address] Performed By: #### U UNR #### [facility] CLIA [id number] [address] [place], [place] [id number] [place] [facility] CRP [Mass/Vol] 0.7 mg/dL Normal <0.9 [facility] Comment on above: Order Comment: Speci men Type: BLOOD SPECIMENOrdering Facility: [facility] Address: [address] [place] [address] Performed By: #### 2 4321-2, 4485-9, 4498-2, 1988-5 ####[facility]IA [id number] [place] [address] [place] DNA ANTIBODY DS BLDon 2024 DNA ANTIBODY 816 IU/mL High <=200 [facility] Comment on above: Order Comment: Speci men Type: BLOOD SPECIMENOrdering Facility: [facility] Address: [facility] [place] [address] Result Comment: Nega tive: <200 IU/mL Equivocal: 201-300 IU/mL Moderate Positive: 301-800 IU/mL Strong Positive: >801 IU/mL Performed By: #### D NAAB ####[facility]IA [id number] [place] [address] [place] DNA ANTIBODY QUALITATIVE INTERPRETATION Positive Abnormal Negative [facility] Comment on above: Order Comment: Speci men Type: BLOOD SPECIMENOrdering Facility: [facility] Address: [facility] [place] [address] Performed By: #### D NAAB ####[facility]IA [id number] [place] [address] [place] ESR Westergren method (Bld) [Velocity]on 10-01-2024 ESR (Bld) [Velocity] 50 mm/h High 0-20 [facility] Comment on above: Order Comment: Speci men Type: URINE SPECIMEN Ordering Facility: [facility] Address: [facility] [place] [address] Performed By: #### U UNR #### [facility] CLIA [id number] [address] [place] [address] [place] PTH-Intact SerPl[facility] Parathyrin.intact [Mass/Vol] 34 pg/mL Normal 15-65 [facility] Comment on above: Order Comment: Speci men Type: URINE SPECIMEN Ordering Facility: [facility] Address: [facility] [place] [address] Performed By: #### U UNR #### [facility] CLIA [id number] [address] [place] [address] [place] UREA NITROGEN, RANDOM URINEo n 10-01-2024 UREA NITROGEN,UR,RAN 542 mg/dL Normal 140-1500 [facility] Comment on above: Order Comment: Speci men Type: URINE SPECIMENOrdering Facility: [facility] Address: [address] [place] [address] Performed By: #### U UNR ####[facility] LABCLIA [id number] [place] [address] [place] Urinalysis complete panel (U )on 10-01-2024 Bacteria LM.HPF (Urine sed) [#/Area] Negative Normal Negative [facility] Comment on above: Order Comment: Speci men Type: URINE SPECIMEN Ordering Facility: [facility] Address: [facility] [address] Performed By: #### U UNR #### [facility] CLIA [id number] [address] [place] [address] [place] Bilirubin Ql (U) Negative Normal Negative [facility] Comment on above: Order Comment: Speci men Type: URINE SPECIMEN Ordering Facility: [facility] Address: [facility] [place] [address] Performed By: #### U UNR #### [facility] CLIA [id number] [address] [place] [address] [place] Clarity (Unsp spec) Clear Normal Clear [facility] Comment on above: Order Comment: Speci men Type: URINE SPECIMEN Ordering Facility: [facility] Address: [address] [id number] Performed By: #### U UNR #### [facility] CLIA [id number] [address] [place] [address] [place] Color (U) Yellow Normal Yellow [facility] Comment on above: Order Comment: Speci men Type: URINE SPECIMEN Ordering Facility: [facility] Address: [address] , [place] [id number] Performed By: #### U UNR #### [facility] CLIA [id number] [facility] [place] [address] [place] Epithelial cells LM.HPF (Urine sed) [#/Area] Moderate Normal [facility] Comment on above: Order Comment: Speci men Type: URINE SPECIMEN Ordering Facility: [facility] Address: [address] [place] [address] Performed By: #### U UNR #### [facility] CLIA [id number] [address] [place] [address] [place] Glucose Test strip (U) [Mass/Vol] Negative Normal Negative [facility] Comment on above: Order Comment: Speci men Type: URINE SPECIMEN Ordering Facility: [facility] Address: [address] [place] [address] Performed By: #### U UNR #### [facility] CLIA [id number] [address] [place] [address] [place] Hemoglobin Ql (U) Negative Normal Negative [facility] Comment on above: Order Comment: Speci men Type: URINE SPECIMEN Ordering Facility: [facility] Address: [address] [place] [address] Performed By: #### U UNR #### [facility] CLIA [id number] [address] [place] [address] [place] Hyaline casts (Urine sed) [#/Area] 0 /[LPF] Normal 0 /LPF [facility] Comment on above: Order Comment: Speci men Type: URINE SPECIMEN Ordering Facility: [facility] Address: [address] [place] [address] Performed By: #### U UNR #### [facility] CLIA [id number] [address] [id number] [address] [place] Ketones Ql (U) Negative Normal Negative [facility] Comment on above: Order Comment: Speci men Type: URINE SPECIMEN Ordering Facility: [facility] Address: [address] [place] [address] Performed By: #### U UNR #### [facility] CLIA [id number] [address] [place] [address] [place] Leukocyte esterase Test strip Ql (U) 1+ Abnormal Negative [facility] Comment on above: Order Comment: Speci men Type: URINE SPECIMEN Ordering Facility: [facility] Address: [address] [place] [address] Performed By: #### U UNR #### [facility] CLIA [id number] [address] [place] [address] [place] Nitrite Ql (U) Negative Normal Negative [facility] Comment on above: Order Comment: Speci men Type: URINE SPECIMEN Ordering Facility: [facility] Address: [address] [place] [address] Performed By: #### U UNR #### [facility] CLIA [id number] [facility] [place] [address] [place] pH (U) 6.5 [pH] Normal <8.5 [facility] Comment on above: Order Comment: Speci men Type: URINE SPECIMEN Ordering Facility: [facility] Address: [address] [place] [address] Performed By: #### U UNR #### [facility] CLIA [id number] [address] [place] [address] [place] Protein (U) [Mass/Vol] Trace Abnormal Negative [facility] Comment on above: Order Comment: Speci men Type: URINE SPECIMEN Ordering Facility: [facility] Address: [address] [place] [address] Performed By: #### U UNR #### [facility] CLIA [id number] [address] [place] [address] [place] RBC LM.HPF (Urine sed) [#/Area] 0-2 /HPF Normal 0-2 /HPF [facility] Comment on above: Order Comment: Speci men Type: URINE SPECIMEN Ordering Facility: [facility] Address: [facility] [address] Performed By: #### U UNR #### [facility] CLIA [id number] [address] [place] [address] [place] Specific gravity (U) [Rel density] 1.019 Normal 1.005-1.030 [facility] Comment on above: Order Comment: Speci men Type: URINE SPECIMEN Ordering Facility: [facility] Address: [facility] [address] Performed By: #### U UNR #### [facility] CLIA [id number] [address] [place] [address] [place] Urobilinogen Ql (U) 0.2 EU/dL Normal 0.2-1.0 EU/dL [facility] Comment on above: Order Comment: Speci men Type: URINE SPECIMEN Ordering Facility: [facility] Address: [facility] [address] Performed By: #### U UNR #### [facility] CLIA [id number] [address] [place] [address] [place] WBC LM.HPF (Urine sed) [#/Area] 0-5 /HPF Normal 0-5 /HPF [facility] Comment on above: Order Comment: Speci men Type: URINE SPECIMEN Ordering Facility: [facility] Address: [facility] [address] Performed By: #### U UNR #### [facility] CLIA [id number] [address] [place] [address] [place] Robin 09-24-2024 NAYE Telephone (LANI) -------- TAMY VAZQUEZ ([id number]) 1980 F Date Time Provider Department 09/24/24 [...] after. Anna Best 09/29/2024 10:31 AM Addendum LVM for patient to return the call. Rescheduled appointment to 11/19. Verify date and time work for patient. Anna Kincaid Allergies As of Date: 09/24/2024 Noted Allergy Reaction AMERIGEL (ZINC ACETATE) 08/30/2006 Comments: Loa burning at area CEFDINIR 06/04/2020 14 - Other: See Comments Comments: Dizzy FLAGYL (METRONIDAZOLE) 01/17/2008 5 - Intolerance 8 - GI Upset Comments: Nausea, fatigue, poor appetite Date Reviewed: 03/29/2024 Reviewed by: Colleen Asif LPN - Fully Assessed Reason for Visit: Appointment [186] Prescriptions as of 09/29/2024 - mycbenji pastor DR (MYFORTIC) 180 mg EC tablet Take [...] thrombosis) [Z86.7 (more content not included)... Normal [facility] ALT SerPl-cCncon 08-20-2024 ALT [Catalytic activity/Vol] 12 U/L Normal 7-38 [facility] Comment on above: Order Comment: Speci men Type: URINE SPECIMEN Ordering Facility: [facility] Address: [facility] [place] [address] Performed By: #### U UNR #### [facility] CLIA [id number] [address] [place] [address] [place] AST SerPl-cCncon 08-20-2024 AST [Catalytic activity/Vol] 17 U/L Normal 13-35 [facility] Comment on above: Order Comment: Speci men Type: URINE SPECIMEN Ordering Facility: [facility] Address: [facility] [place] [address] Performed By: #### U UNR #### [facility] CLIA [id number] [address] [place] [address] [place] C3 SerPl-mCncon 08-20-2024 Complement C3 [Mass/Vol] 97 mg/dL Normal 86-166 [facility] Comment on above: Order Comment: Speci men Type: BLOOD SPECIMENOrdering Facility: [facility] Address: [facility] [place] [address] Performed By: #### 4 485-9, 4498-2, 1987-08 ####[facility]IA [id number] [place] [address] [place] C4 SerPl-mCncon 08-20-2024 Complement C4 [Mass/Vol] 14 mg/dL Normal 13-46 [facility] Comment on above: Order Comment: Speci men Type: BLOOD SPECIMENOrdering Facility: [facility] Address: [facility] [place] [address] Performed By: #### 4 485-9, 4498-2, 1988- ####[facility]IA [id number] [place] [address] [place] CBC W Auto Differential pane l (Bld)on 08-20-2024 Basophils (Bld) [#/Vol] 10*3/uL Normal <0.11 [facility] Comment on above: Order Comment: Speci men Type: BLOOD SPECIMENOrdering Facility: [facility] Address: [facility] [place] [address] Performed By: #### 5 7021-8 ####[facility] MILLTOWNCLIA [id number] [place] [address] [place] Basophils/100 WBC (Bld) 0.4 % Normal [facility] Comment on above: Order Comment: Speci men Type: BLOOD SPECIMENOrdering Facility: [facility] Address: [facility] [place] [address] Performed By: #### 5 7021-8 ####[facility] MILLTOWNCLIA [id number] [place] [address] [place] Differential cell count method Nom (Bld) Auto Normal [facility] Comment on above: Order Comment: Speci men Type: BLOOD SPECIMENOrdering Facility: [facility] Address: [facility] [place] [address] Performed By: #### 5 7021-8 ####[facility] MILLTOWNCLIA [id number] [place] [address] [place] Eosinophils (Bld) [#/Vol] 0.13 10*3/uL Normal <0.46 [facility] Comment on above: Order Comment: Speci men Type: BLOOD SPECIMENOrdering Facility: [facility] Address: [facility] [place] [address] Performed By: #### 5 7021-8 ####[facility] MILLTOWNCLIA [id number] [place] [address] [place] Eosinophils/100 WBC (Bld) 2.5 % Normal [facility] Comment on above: Order Comment: Dennysi jasiel Type: BLOOD SPECIMENOrdering Facility: [facility] Address: [address] [place] [address] Performed By: #### 5 7021-8 ####[facility]AMLIA [id number] [place] [address] [place] Erythrocyte distribution width (RBC) [Ratio] 13.6 % Normal 11.5-15.0 [facility] Comment on above: Order Comment: Luis A weathers Type: BLOOD SPECIMENOrdering Facility: [facility] Address: [address] [place] [address] Performed By: #### 5 7021-8 ####[facility]ITALSHANDAA [id number] [place] [address] [place] Hematocrit (Bld) [Volume fraction] 36.9 % Normal 36.0-46.0 [facility] Comment on above: Order Comment: Luis A weathers Type: BLOOD SPECIMENOrdering Facility: [facility] Address: [address] [place] [address] Performed By: #### 5 7021-8 ####[facility]ALTAMLIA [id number] [place] [address] [place] Hemoglobin (Bld) [Mass/Vol] 11.6 g/dL Normal 11.5-15.5 [facility] Comment on above: Order Comment: Dennysi jasiel Type: BLOOD SPECIMENOrdering Facility: [facility] Address: [address] [place] [address] Performed By: #### 5 7021-8 ####[facility]ITALNCLIA [id number] [place] [address] [place] Immature granulocytes (Bld) [#/Vol] 10*3/uL Normal <0.10 [facility] Comment on above: Order Comment: Speci jasiel Type: BLOOD SPECIMENOrdering Facility: [facility] Address: [address] [place] [address] Performed By: #### 5 7021-8 ####[facility]PITALLIA [id number] [place] [address] [place] Immature granulocytes/100 WBC (Bld) 0.4 % Normal [facility] Comment on above: Order Comment: Dennysi men Type: BLOOD SPECIMENOrdering Facility: [facility] Address: [address] [place], [place] [address] [address] Performed By: #### 5 7021-8 ####[facility] [id number] [place] [address] [place] Lymphocytes (Bld) [#/Vol] 1.20 10*3/uL Normal 1.00-4.00 [facility] Comment on above: Order Comment: Dennysi jasiel Type: BLOOD SPECIMENOrdering Facility: [facility] Address: [address] [place], [place] [address] [address] Performed By: #### 5 7021-8 ####[facility] [id number] [place] [address] [place] Lymphocytes/100 WBC (Bld) 22.9 % Normal [facility] Comment on above: Order Comment: Dennysi men Type: BLOOD SPECIMENOrdering Facility: [facility] Address: [address] [place] [address] Performed By: #### 5 7021-8 ####[facility]PITALLIA [id number] [place] [address] [place] MCH (RBC) [Entitic mass] 27.0 pg Normal 26.0-34.0 [facility] Comment on above: Order Comment: Dennysi men Type: BLOOD SPECIMENOrdering Facility: [facility] Address: [address] [place] [address] Performed By: #### 5 7021-8 ####[facility] MILLTOWNCLIA [id number] [place] [address] [place] MCHC (RBC) [Mass/Vol] 31.4 g/dL Normal 30.5-36.0 [facility] Comment on above: Order Comment: Speci men Type: BLOOD SPECIMENOrdering Facility: [facility] Address: [facility] [place] [address] Performed By: #### 5 7021-8 ####[facility]ITALNCLIA [id number] [place] [address] [place] MCV (RBC) [Entitic vol] 86.0 fL Normal 80.0-100.0 [facility] Comment on above: Order Comment: Speci men Type: BLOOD SPECIMENOrdering Facility: [facility] Address: [facility] [place] [address] Performed By: #### 5 7021-8 ####[facility]ITALNCLIA [id number] [place] [address] [place] Monocytes (Bld) [#/Vol] 0.49 10*3/uL Normal <0.87 [facility] Comment on above: Order Comment: Speci men Type: BLOOD SPECIMENOrdering Facility: [facility] Address: [facility] [place] [address] Performed By: #### 5 7021-8 ####[facility] HOSPITALWNCLIA [id number] [place] [address] [place] Monocytes/100 WBC (Bld) 9.4 % Normal [facility] Comment on above: Order Comment: Speci men Type: BLOOD SPECIMENOrdering Facility: [facility] Address: [facility] [place] [address] Performed By: #### 5 7021-8 ####[facility]ITALNCLIA [id number] [place] [address] [place] Neutrophils (Bld) [#/Vol] 3.38 10*3/uL Normal 1.45-7.50 [facility] Comment on above: Order Comment: Speci men Type: BLOOD SPECIMENOrdering Facility: [facility] Address: [address] [place] [address] Performed By: #### 5 7021-8 ####[facility] MILLWNCLIA [id number] [place] [address] [place] Neutrophils/100 WBC (Bld) 64.4 % Normal [facility] Comment on above: Order Comment: Dennysi jasiel Type: BLOOD SPECIMENOrdering Facility: [facility] Address: [address] [place] [address] Performed By: #### 5 7021-8 ####[facility]ITALNCLIA [id number] [place] [address] [place] Nucleated RBC (Bld) [#/Vol] 10*3/uL Normal <0.01 [facility] Comment on above: Order Comment: Dennysi jasiel Type: BLOOD SPECIMENOrdering Facility: [facility] Address: [address] [place] [address] Performed By: #### 5 7021-8 ####[facility] HOSPITALWNCLIA [id number] [place] [address] [place] Nucleated RBC/100 WBC (Bld) [Ratio] 0.0 /100 WBC Normal [facility] Comment on above: Order Comment: Dennysi jasiel Type: BLOOD SPECIMENOrdering Facility: [facility] Address: [address] [place] [address] Performed By: #### 5 7021-8 ####[facility]ITALNCLIA [id number] [place] [address] [place] Platelet mean volume (Bld) [Entitic vol] 9.9 fL Normal 9.0-12.7 [facility] Comment on above: Order Comment: Speci men Type: BLOOD SPECIMENOrdering Facility: [facility] Address: [address] [place] [address] Performed By: #### 5 7021-8 ####[facility] YASMINNCLIA [id number] [place] [address] [place] Platelets (Bld) [#/Vol] 232 10*3/uL Normal 150-400 [facility] Comment on above: Order Comment: Speci men Type: BLOOD SPECIMENOrdering Facility: [facility] Address: [address] [place], [place] [address] [address] Performed By: #### 5 7021-8 ####[facility]ITALNCLIA [id number] [place] [address] [place] RBC (Bld) [#/Vol] 4.29 10*6/uL Normal 3.90-5.20 [facility] Comment on above: Order Comment: Speci men Type: BLOOD SPECIMENOrdering Facility: [facility] Address: [facility] [place] [address] Performed By: #### 5 7021-8 ####[facility]ITALNCLIA [id number] [place] [address] [place] WBC (Bld) [#/Vol] 5.24 10*3/uL Normal 3.70-11.00 [facility] Comment on above: Order Comment: Speci men Type: BLOOD SPECIMENOrdering Facility: [facility] Address: [address] [place], [place] [address] [address] Performed By: #### 5 7021-8 ####[facility]ITALNCLIA [id number] [place] [address] [place] [facility] 08-20-2024 CRP [Mass/Vol] 0.5 mg/dL Normal <0.9 [facility] Comment on above: Order Comment: Speci men Type: BLOOD SPECIMENOrdering Facility: [facility] Address: [address] [place] [address] Performed By: #### 4 485-9, 4498-2, 1987-08 ####[facility] LABCLIA [id number] [place] [address] [place] Creatinine + eGFR Pnl SerPlB ldon 08-20-2024 Creatinine and Glomerular filtration rate.predicted panel (S/P/Bld) 111 mL/min/1.73m??? Normal >=60 [facility] Comment on above: Order Comment: Speci men Type: URINE SPECIMEN Ordering Facility: [facility] Address: [address] [place] [address] Result Comment: Yvonne mated Glomerular Filtration Rate [...] accurately reflect actual GFR. Performed By: #### U UNR #### [facility] CLIA [id number] [address] [place] [address] [place] [facility] Creatinine and Glomerular fi ltration rate.predicted panel (S/P/Bld)on 08-20-2024 Creatinine [Mass/Vol] 0.65 mg/dL Normal 0.58-0.96 [facility] Comment on above: Order Comment: Speci men Type: URINE SPECIMEN Ordering Facility: [facility] Address: [address] [place] [address] Performed By: #### U UNR #### [facility] CLIA [id number] [address] [place] [address] [place] DNA ANTIBODY DS BLDon 2024 DNA ANTIBODY 753 IU/mL High <=200 [facility] Comment on above: Order Comment: Speci men Type: BLOOD SPECIMENOrdering Facility: [facility] Address: [address] [place] [address] Result Comment: Nega tive: <200 IU/mL Equivocal: 201-300 IU/mL Moderate Positive: 301-800 IU/mL Strong Positive: >801 IU/mL Performed By: #### D NAAB ####[facility] [id number] [place] [address] [place] DNA ANTIBODY QUALITATIVE INTERPRETATION Positive Abnormal Negative [facility] Comment on above: Order Comment: Speci men Type: BLOOD SPECIMENOrdering Facility: [facility] Address: [address] [place] [address] Performed By: #### D NAAB ####[facility] LABCLIA [id number] [place] [address] [place] UREA NITROGEN, RANDOM URINEo n 08-20-2024 UREA NITROGEN,UR,RAN 599 mg/dL Normal 140-1500 [facility] Comment on above: Order Comment: Speci men Type: URINE SPECIMEN Ordering Facility: [facility] Address: [address] [place] [address] Performed By: #### U UNR #### [facility] CLIA [id number] [address] [place] [address] [place] Urinalysis complete panel (U )on 08-20-2024 Bacteria LM.HPF (Urine sed) [#/Area] Negative Normal Negative [facility] Comment on above: Order Comment: Speci men Type: URINE SPECIMEN Ordering Facility: [facility] Address: [address] [place] [address] Performed By: #### 2 4356-8 #### [facility] CLIA [id number] [address] [place] [address] [place] Bilirubin Ql (U) Negative Normal Negative [facility] Comment on above: Order Comment: Speci men Type: URINE SPECIMEN Ordering Facility: [facility] Address: [address] [place] [address] Performed By: #### 2 4356-8 #### [facility] CLIA [id number] [address] [address] [place] Clarity (Unsp spec) Clear Normal Clear [facility] Comment on above: Order Comment: Speci men Type: URINE SPECIMEN Ordering Facility: [facility] Address: [address] [place] [id number] Performed By: #### 2 4356-8 #### [facility] CLIA [id number] [address] [address] [place] Color (U) Yellow Normal Yellow [facility] Comment on above: Order Comment: Speci men Type: URINE SPECIMEN Ordering Facility: [facility] Address: [address] [place] [address] Performed By: #### 2 4356-8 #### [facility] CLIA [id number] [address] [place] [id number] [place] Epithelial cells LM.HPF (Urine sed) [#/Area] None Seen Normal [facility] Comment on above: Order Comment: Speci men Type: URINE SPECIMEN Ordering Facility: [facility] Address: [address] [place] [address] Performed By: #### 2 4356-8 #### [facility] CLIA [id number] [address] [address] [place] Glucose Test strip (U) [Mass/Vol] Negative Normal Negative [facility] Comment on above: Order Comment: Speci men Type: URINE SPECIMEN Ordering Facility: [facility] Address: [address] [place] [id number] Performed By: #### 2 4356-8 #### [facility] CLIA [id number] [address] [place] [id number] [place] Hemoglobin Ql (U) Negative Normal Negative [facility] Comment on above: Order Comment: Speci men Type: URINE SPECIMEN Ordering Facility: [facility] Address: [address], [place] [address] Performed By: #### 2 4356-8 #### [facility] CLIA [id number] [address] [place] [address] [place] Hyaline casts (Urine sed) [#/Area] 0 /[LPF] Normal 0 /LPF [facility] Comment on above: Order Comment: Speci men Type: URINE SPECIMEN Ordering Facility: [facility] Address: [address] [place] [address] Performed By: #### 2 4356-8 #### [facility] CLIA [id number] [address] [place] [address] [place] Ketones Ql (U) Negative Normal Negative [facility] Comment on above: Order Comment: Speci men Type: URINE SPECIMEN Ordering Facility: [facility] Address: [facility] [address] Performed By: #### 2 4356-8 #### [facility] CLIA [id number] [address] [place] [address] [place] Leukocyte esterase Test strip Ql (U) 1+ Abnormal Negative [facility] Comment on above: Order Comment: Speci men Type: URINE SPECIMEN Ordering Facility: [facility] Address: [address] [place] [address] Performed By: #### 2 4356-8 #### [facility] CLIA [id number] [address] [place] [address] [place] Nitrite Ql (U) Negative Normal Negative [facility] Comment on above: Order Comment: Speci men Type: URINE SPECIMEN Ordering Facility: [facility] Address: [address] [place] [address] Performed By: #### 2 4356-8 #### [facility] CLIA [id number] [address] [place] [id number] [place] pH (U) 6.0 [pH] Normal <8.5 [facility] Comment on above: Order Comment: Speci men Type: URINE SPECIMEN Ordering Facility: [facility] Address: [address] [place] [address] Performed By: #### 2 4356-8 #### [facility] CLIA [id number] [address] [place] [address] [place] Protein (U) [Mass/Vol] Negative Normal Negative [facility] Comment on above: Order Comment: Speci men Type: URINE SPECIMEN Ordering Facility: [facility] Address: [address] [place] [address] Performed By: #### 2 4356-8 #### [facility] CLIA [id number] [address] [place] [address] [place] RBC LM.HPF (Urine sed) [#/Area] 0-2 /HPF Normal 0-2 /HPF [facility] Comment on above: Order Comment: Speci men Type: URINE SPECIMEN Ordering Facility: [facility] Address: [address] [place] [address] Performed By: #### 2 4356-8 #### [facility] CLIA [id number] [address] [place] [address] [place] Specific gravity (U) [Rel density] 1.017 Normal 1.005-1.030 [facility] Comment on above: Order Comment: Speci men Type: URINE SPECIMEN Ordering Facility: [facility] Address: [address] [place] [address] Performed By: #### 2 4356-8 #### [facility] CLIA [id number] [address] [place] [address] [place] Urobilinogen Ql (U) 0.2 EU/dL Normal 0.2-1.0 EU/dL [facility] Comment on above: Order Comment: Speci men Type: URINE SPECIMEN Ordering Facility: [facility] Address: [address] [place] [address] Performed By: #### 2 4356-8 #### [facility] CLIA [id number] [address] [place] [phone] [place] WBC LM.HPF (Urine sed) [#/Area] 0-5 /HPF Normal 0-5 /HPF [facility] Comment on above: Order Comment: Speci men Type: URINE SPECIMEN Ordering Facility: [facility] Address: [facility] [address], [place] [address] Performed By: #### 2 4356-8 #### [facility] CLIA [id number] [address] [place] [phone] [place] CNOVon 07-30-2024 CNOV Office Visit (PULMHI ) -------- TAMY VAZQUEZ ([id number]) 1980 F Date Time Provider Department 07/30/24 3:00 PM ALAN RENE [facility] During your visit today, we recorded the following information about you: Pulse Respiration Blood pressure 85/minute 20/minute 97/67 Alan Rene MD 07/30/2024 4:52 PM [facility] [place] Tamy Vazquez is a 44 year old female here for a follow up with the [facility] Interstitial Lung Disease Team. HISTORY OF PRESENT ILLNESS: Mixed Connective Tissue Disease: - Reports stable lung function. - Recent body aches and congestion; received an antibiotic prescription but has not started it due to concerns about INR fluctuations. - Experiences frequent temperature changes due to biweekly travel to [place]. - Recent episode of chills after a flight, resolved with hydration and Tylenol. - Fully vaccinated for COVID-19. - Overdue for an echocardiogram; last one was in 2021. - Recent mammogram showed dense tissue but was otherwise normal. Wrist Pain: - Pain initiated after a Pilates class. - Massage in [place] provided temporary relief. - Pain recurs if not wearing a brace at night. Mixed Connective Tissue Disease: - Reports stable lung function. - Recent body aches and congestion; received an antibiotic prescription but has not started it due to concerns about INR fluctuations. - Experiences frequent temperature changes due to biweekly travel to [place]. - Recent episode of chills after a flight, resolved with hydration and Tylenol. - Fully vaccinated for COVID-19. - Overdue for an echocardiogram; last one was in 2021. - Recent mammogram showed dense tissue but was otherwise normal. Wrist Pain: - Pain initiated after a Pilates class. - Massage in [place] provided temporary relief. - Pain recurs if [...] BR/WA SPX 04/18/2004 Laparoscopy for endometriosis at [place] [address] [place] at [facility], no control afterward, ++relief and [...] Son ALLERGIES Allergen Reactions Amerigel [Zinc Acet* Loa burning at area Cefdinir Other: See Comments [...] 14-Jan-2020 Complet (more content not included)... 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 Tech: Zamzam Lyle PRE-BRONCH POST-BRONCH Chang LLN Pred ULN %Pred ZScore Chang %Pred %Chg ZScore SPIROMETRY FVC 1.76 2.48 3.28 4.09 53 -3.18 FEV1 1.42 2.03 2.71 3.35 52 -3.02 FEV1/FVC 0.81 0.71 0.82 0.91 98 -0.20 FEFMax 4.92 5.12 6.80 8.48 72 -1.84 FEF50 1.73 2.06 3.67 5.28 47 -1.98 FIF50 1.85 FEF50/FIF50 0.94 90-100 FIVC 1.69 ZWN88-88 1.36 1.65 2.80 4.23 48 -2.14 ExpiredTime [...] 82 % FEV1/FVC_LLN (%) : 71 % XZF81_QFV (L/S) : 4.67 L/S TBG84_DEY (L/S) : 0.50 L/S TIS94_QNVS (L/S) : 1.04 L/S ODT56_MWC (L/S) : 0.49 L/S MDY27_YXL (L/S) : 2.00 L/S AVP86-16%_PRE (L/S) : 1.36 L/S HRD58-63%_PRED (L/S) : 2.80 L/S ZPK99-75%_LLN (L/S) : 1.65 L/S PEF_PRE (L/S) : [...] ml/min/mmHg DLCO/VACOR (ML/MIN/MMHG/L) : 0.05 ml/min/mmHg/L Normal [facility] SPIROMETRY BASELINE ONLYon 0 07-30-2024 SPIROMETRY BASELINE ONLY [facility] [address] [place] [address] Test Date: 2024-07-30 Pat Name: TAMY VAZQUEZ Department: Room: Gender: Female Stock Handler: YARIEL: 1980 Requested By: Order Number: [id number] Reading MD: Jus Leigh MD Interpretive Statements [...] 15:32:04 EDT by Jus Leigh MD ID: [id number] Name: VAZQUEZTAMY SCOTT Ann Race: Other Ht: 63.39 in Wt: 117.95 lbs Age: 44 Gender: Female : 1980 Dx: Idiopathic interstitial pulmonary disease_ Smoking Hx: Non-smoker Doctor: ALAN RENE Test Date: 07/30/2024 Site: [facility] Tech: Zamzam Lyle PRE-BRONCH POST-BRONCH Chang LLN Pred ULN %Pred ZScore Chang %Pred %Chg ZScore SPIROMETRY FVC 1.76 2.48 3.28 4.09 53 -3.18 FEV1 1.42 2.03 2.71 3.35 52 -3.02 FEV1/FVC 0.81 0.71 0.82 0.91 98 -0.20 FEFMax 4.92 5.12 6.80 8.48 72 -1.84 FEF50 1.73 2.06 3.67 5.28 47 -1.98 FIF50 1.85 FEF50/FIF50 0.94 90-100 FIVC 1.69 KGF13-12 1.36 1.65 2.80 4.23 48 -2.14 ExpiredTime [...] Hemoglobin obtained from [facility] 07/09/24.//KJ Normal [facility] ALT SerPl-cCncon 07-09-2024 ALT [Catalytic activity/Vol] 16 U/L Normal 7-38 [facility] Comment on above: Order Comment: Speci men Type: BLOOD SPECIMENOrdering Facility: [facility] Address: [facility] [place] [address] Performed By: #### 1 742-6, 1919-11, CRET1 ####[facility] [id number] [place] [id number] [place] AST SerPl-cCncon 07-09-2024 AST [Catalytic activity/Vol] 20 U/L Normal 13-35 [facility] Comment on above: Order Comment: Speci men Type: BLOOD SPECIMENOrdering Facility: [facility] Address: [facility] [place] [address] Performed By: #### 1 742-6, 1919-11, CRET1 ####[facility] MILLWNCLIA [id number] [place] [address] [place] C3 SerPl-mCncon 07-09-2024 Complement C3 [Mass/Vol] 97 mg/dL Normal 86-166 [facility] Comment on above: Order Comment: Speci men Type: BLOOD SPECIMENOrdering Facility: [facility] Address: [facility] [place] [address] Performed By: #### 4 485-9, 4498-2, 1987-08 ####[facility] [id number] [place] [address] [place] C4 SerPl-mCncon 07-09-2024 Complement C4 [Mass/Vol] 13 mg/dL Normal 13-46 [facility] Comment on above: Order Comment: Speci men Type: BLOOD SPECIMENOrdering Facility: [facility] Address: [facility] [place] [address] Performed By: #### 4 485-9, 4498, 1987-08 ####[facility] [id number] [place] [address] [place] CBC W Auto Differential pane l (Bld)on 07-09-2024 Basophils (Bld) [#/Vol] 0.05 10*3/uL Normal <0.11 [facility] Comment on above: Order Comment: Speci men Type: BLOOD SPECIMENOrdering Facility: [facility] Address: [facility] [place] [address] Performed By: #### 5 7021-8 ####[facility] HOS[facility]ITALWNCLIA [id number] [place] [address] [place] Basophils/100 WBC (Bld) 0.7 % Normal [facility] Comment on above: Order Comment: Speci men Type: BLOOD SPECIMENOrdering Facility: [facility] Address: [facility] [place] [address] Performed By: #### 5 7021-8 ####[facility] MILLTOWNCLIA [id number] [place] [address] [place] Differential cell count method Nom (Bld) Auto Normal [facility] Comment on above: Order Comment: Speci men Type: BLOOD SPECIMENOrdering Facility: [facility] Address: [address] [place] [address] Performed By: #### 5 7021-8 ####[facility] HOSPITALWNCLIA [id number] [place] [address] [place] Eosinophils (Bld) [#/Vol] 0.17 10*3/uL Normal <0.46 [facility] Comment on above: Order Comment: Speci men Type: BLOOD SPECIMENOrdering Facility: [facility] Address: [address] [place] [address] Performed By: #### 5 7021-8 ####[facility] [id number] [place] [address] [place] Eosinophils/100 WBC (Bld) 2.5 % Normal [facility] Comment on above: Order Comment: Speci men Type: BLOOD SPECIMENOrdering Facility: [facility] Address: [address] [place] [address] Performed By: #### 5 7021-8 ####[facility] HOSPITALWNCLIA [id number] [place] [address] [place] Erythrocyte distribution width (RBC) [Ratio] 13.2 % Normal 11.5-15.0 [facility] Comment on above: Order Comment: Speci men Type: BLOOD SPECIMENOrdering Facility: [facility] Address: [address] [place] [address] Performed By: #### 5 7021-8 ####[facility]CL[facility] [id number] [place] [address] [place] Hematocrit (Bld) [Volume fraction] 37.1 % Normal 36.0-46.0 [facility] Comment on above: Order Comment: Luis A weathers Type: BLOOD SPECIMENOrdering Facility: [facility] Address: [address] [place], [place] [address] [address] Performed By: #### 5 7021-8 ####[facility]CL[facility] [id number] [place] [address] [place] Hemoglobin (Bld) [Mass/Vol] 11.9 g/dL Normal 11.5-15.5 [facility] Comment on above: Order Comment: Luis A weathers Type: BLOOD SPECIMENOrdering Facility: [facility] Address: [address] [place] [address] Performed By: #### 5 7021-8 ####[facility]CL[facility] [id number] [place] [address] [place] Immature granulocytes (Bld) [#/Vol] 0.04 10*3/uL Normal <0.10 [facility] Comment on above: Order Comment: Luis A weathers Type: BLOOD SPECIMENOrdering Facility: [facility] Address: [address] [place] [address] Performed By: #### 5 7021-8 ####[facility]ITAL[facility]CLIA [id number] [place] [address] [place] Immature granulocytes/100 WBC (Bld) 0.6 % Normal [facility] Comment on above: Order Comment: Dennysi jasiel Type: BLOOD SPECIMENOrdering Facility: [facility] Address: [address] [place] [address] Performed By: #### 5 7021-8 ####[facility]CL[facility] [id number] [place] [address] [place] Lymphocytes (Bld) [#/Vol] 1.33 10*3/uL Normal 1.00-4.00 [facility] Comment on above: Order Comment: Dennysi men Type: BLOOD SPECIMENOrdering Facility: [facility] Address: [address] [place] [address] Performed By: #### 5 7021-8 ####[facility] BEVWNCLIA [id number] [place] [address] [place] Lymphocytes/100 WBC (Bld) 19.3 % Normal [facility] Comment on above: Order Comment: Speci men Type: BLOOD SPECIMENOrdering Facility: [facility] Address: [address] [place] [address] Performed By: #### 5 7021-8 ####[facility] MILLTOWNCLIA [id number] [place] [address] [place] MCH (RBC) [Entitic mass] 27.4 pg Normal 26.0-34.0 [facility] Comment on above: Order Comment: Speci men Type: BLOOD SPECIMENOrdering Facility: [facility] Address: [facility] [place] [address] Performed By: #### 5 7021-8 ####[facility] BRENNONWNCLIA [id number] [place] [address] [place] MCHC (RBC) [Mass/Vol] 32.1 g/dL Normal 30.5-36.0 [facility] Comment on above: Order Comment: Speci men Type: BLOOD SPECIMENOrdering Facility: [facility] Address: [facility] [place] [address] Performed By: #### 5 7021-8 ####[facility] BRENNONTOWNCLIA [id number] [place] [address] [place] MCV (RBC) [Entitic vol] 85.3 fL Normal 80.0-100.0 [facility] Comment on above: Order Comment: Speci men Type: BLOOD SPECIMENOrdering Facility: [facility] Address: [facility] [place] [address] Performed By: #### 5 7021-8 ####[facility]CL[facility] [id number] [place] [address] [place] Monocytes (Bld) [#/Vol] 0.50 10*3/uL Normal <0.87 [facility] Comment on above: Order Comment: Speci men Type: BLOOD SPECIMENOrdering Facility: [facility] Address: [address] [place] [address] Performed By: #### 5 7021-8 ####[facility] HOSPITALWNCLIA [id number] [place] [address] [place] Monocytes/100 WBC (Bld) 7.2 % Normal [facility] Comment on above: Order Comment: Speci men Type: BLOOD SPECIMENOrdering Facility: [facility] Address: [address] [place] [address] Performed By: #### 5 7021-8 ####[facility]CL[facility] [id number] [place] [address] [place] Neutrophils (Bld) [#/Vol] 4.81 10*3/uL Normal 1.45-7.50 [facility] Comment on above: Order Comment: Speci men Type: BLOOD SPECIMENOrdering Facility: [facility] Address: [address] [place] [address] Performed By: #### 5 7021-8 ####[facility]ITALNCLIA [id number] [place] [address] [place] Neutrophils/100 WBC (Bld) 69.7 % Normal [facility] Comment on above: Order Comment: Speci men Type: BLOOD SPECIMENOrdering Facility: [facility] Address: [address] [place] [address] Performed By: #### 5 7021-8 ####[facility]ITALNCLIA [id number] [place] [address] [place] Nucleated RBC (Bld) [#/Vol] 10*3/uL Normal <0.01 [facility] Comment on above: Order Comment: Luis A weathers Type: BLOOD SPECIMENOrdering Facility: [facility] Address: [address] [place], [place] [address] [address] Performed By: #### 5 7021-8 ####[facility]ITALNCLIA [id number] [place] [address] [place] Nucleated RBC/100 WBC (Bld) [Ratio] 0.0 /100 WBC Normal [facility] Comment on above: Order Comment: Luis A weathers Type: BLOOD SPECIMENOrdering Facility: [facility] Address: [address] [place] [address] Performed By: #### 5 7021-8 ####[facility]ITALNCLI [id number] [place] [address] [place] Platelet mean volume (Bld) [Entitic vol] 10.0 fL Normal 9.0-12.7 [facility] Comment on above: Order Comment: Luis A weathers Type: BLOOD SPECIMENOrdering Facility: [facility] Address: [address] [place] [address] Performed By: #### 5 7021-8 ####[facility]CL[facility] [id number] [place] [address] [place] Platelets (Bld) [#/Vol] 222 10*3/uL Normal 150-400 [facility] Comment on above: Order Comment: Luis A weathers Type: BLOOD SPECIMENOrdering Facility: [facility] Address: [address] [place] [address] Performed By: #### 5 7021-8 ####[facility]ITALNCL[facility] [id number] [place] [address] [place] RBC (Bld) [#/Vol] 4.35 10*6/uL Normal 3.90-5.20 [facility] Comment on above: Order Comment: Luis A weathers Type: BLOOD SPECIMENOrdering Facility: [facility] Address: [address] [place] [address] Performed By: #### 5 7021-8 ####[facility] [id number] [place] [address] [place] WBC (Bld) [#/Vol] 6.90 10*3/uL Normal 3.70-11.00 [facility] Comment on above: Order Comment: Speci men Type: BLOOD SPECIMENOrdering Facility: [facility] Address: [address] [place] [address] Performed By: #### 5 7021-8 ####[facility] [id number] [place] [address] [place] CREATININE BLDon 07-09-2024 Creatinine [Mass/Vol] 0.65 mg/dL Normal 0.58-0.96 [facility] Comment on above: Order Comment: Speci men Type: BLOOD SPECIMENOrdering Facility: [facility] Address: [facility] [address] Performed By: #### 1 742-6, 1919-11, CRET1 ####[facility] [id number] [place] [address] [place] Creatinine and Glomerular filtration rate.predicted panel (S/P/Bld) 111 mL/min/1.73m??? Normal >=60 [facility] Comment on above: Order Comment: Luis A weathers Type: BLOOD SPECIMENOrdering Facility: [facility] Address: [facility] [address] Result Comment: Yvonne mated Glomerular Filtration Rate [...] Performed By: #### 1 742-6, 1920-8, CRET1 ####[facility] [id number] [place] [address] [place] CRP SerPl-mCncon 07-09-2024 CRP [Mass/Vol] 0.6 mg/dL Normal <0.9 [facility] Comment on above: Order Comment: Speci men Type: BLOOD SPECIMENOrdering Facility: [facility] Address: [facility] [address] Performed By: #### 4 485-9, 4498-2, 1987-08 ####[facility] LABCLIA [id number] [place] [address] [place] DNA ANTIBODY DS [facility] 2024 DNA ANTIBODY 924 IU/mL High <=200 [facility] Comment on above: Order Comment: Speci men Type: BLOOD SPECIMENOrdering Facility: [facility] Address: [facility] [address] Result Comment: Nega tive: <200 IU/mL Equivocal: 201-300 IU/mL Moderate Positive: 301-800 IU/mL Strong Positive: >801 IU/mL Performed By: #### D NAAB ####[facility] LABCLIA [id number] [place] [address] [place] DNA ANTIBODY QUALITATIVE INTERPRETATION Positive Abnormal Negative [facility] Comment on above: Order Comment: Dennysi men Type: BLOOD SPECIMENOrdering Facility: [facility] Address: [facility] [place] [address] Performed By: #### D NAAB ####[facility] LABCLIA [id number] [place] [id number] [place] ESR Westergren method (Bld) [Velocity]on 07-09-2024 ESR (Bld) [Velocity] 46 mm/h High 0-20 [facility] Comment on above: Order Comment: Dennysi men Type: BLOOD SPECIMENOrdering Facility: [facility] Address: [facility] [address] Performed By: #### 4 537-7 ####[facility] LABCLIA [id number] [place] [address] [place] UREA NITROGEN, RANDOM URINEo n 07-09-2024 UREA NITROGEN,UR,RAN 696 mg/dL Normal 140-1500 [facility] Comment on above: Order Comment: Speci men Type: URINE SPECIMEN [facility] Address: [address] [place] [address] Performed By: #### U UNR #### [facility] LAB CLIA [id number] [place] [address] [place] Urinalysis complete panel (U )on 07-09-2024 Bacteria LM.HPF (Urine sed) [#/Area] Negative Normal Negative [facility] Comment on above: Order Comment: Speci men Type: URINE SPECIMENOrdering Facility: [facility] Address: [address] [place] [address] Performed By: #### 2 4356-8 ####[facility] LABCLIA [id number] [place] [address] [place] Bilirubin Ql (U) Negative Normal Negative [facility] Comment on above: Order Comment: Speci men Type: URINE SPECIMENOrdering Facility: [facility] Address: [address] [place] [address] Performed By: #### 2 4356-8 ####[facility] LABCLIA [id number] [place] [address] [place] Clarity (Unsp spec) Clear Normal Clear [facility] Comment on above: Order Comment: Speci men Type: URINE SPECIMENOrdering Facility: [facility] Address: [address] [place] [address] Performed By: #### 2 4356-8 ####[facility] LABCLIA [id number] [place] [address] [place] Color (U) Yellow Normal Yellow [facility] Comment on above: Order Comment: Speci men Type: URINE SPECIMENOrdering Facility: [facility] Address: [address] [place] [address] Performed By: #### 2 4356-8 ####[facility] LABCLIA [id number] [address] [address] [place] Epithelial cells LM.HPF (Urine sed) [#/Area] Few Normal [facility] Comment on above: Order Comment: Speci men Type: URINE SPECIMENOrdering Facility: [facility] Address: [address] [place], [place] [address] [address] Performed By: #### 2 4356-8 ####[facility] LABCLIA [id number] [address] [address] [place] Glucose Test strip (U) [Mass/Vol] Negative Normal Negative [facility] Comment on above: Order Comment: Speci men Type: URINE SPECIMENOrdering Facility: [facility] Address: [facility] [place] [address] Performed By: #### 2 4356-8 ####[facility] LABCLIA [id number] [place] [id number] [place] Hemoglobin Ql (U) Negative Normal Negative [facility] Comment on above: Order Comment: Speci men Type: URINE SPECIMENOrdering Facility: [facility] Address: [address] [place] [address] Performed By: #### 2 4356-8 ####[facility] LABCLIA [id number] [address] [address] [place] Hyaline casts (Urine sed) [#/Area] 0 /[LPF] Normal 0 /LPF [facility] Comment on above: Order Comment: Speci men Type: URINE SPECIMENOrdering Facility: [facility] Address: [address] [place], [place] [address] [address] Performed By: #### 2 4356-8 ####[facility] LABCLIA [id number] [address] [place] [address] [place] Ketones Ql (U) Negative Normal Negative [facility] Comment on above: Order Comment: Speci men Type: URINE SPECIMENOrdering Facility: [facility] Address: [address] [place] [address] Performed By: #### 2 4356-8 ####[facility] LABCLIA [id number] [place] [address] [place] Leukocyte esterase Test strip Ql (U) Trace Abnormal Negative [facility] Comment on above: Order Comment: Speci men Type: URINE SPECIMENOrdering Facility: [facility] Address: [address] [place] [address] Performed By: #### 2 4356-8 ####[facility] LABCLIA [id number] [place] [address] [place] Nitrite Ql (U) Negative Normal Negative [facility] Comment on above: Order Comment: Speci men Type: URINE SPECIMENOrdering Facility: [facility] Address: [facility] [place] [address] Performed By: #### 2 4356-8 ####[facility] LABCLIA [id number] [place] [address] [place] pH (U) 6.0 [pH] Normal <8.5 [facility] Comment on above: Order Comment: Speci men Type: URINE SPECIMENOrdering Facility: [facility] Address: [address] [place] [address] Performed By: #### 2 4356-8 ####[facility] LABCLIA [id number] [place] [id number] [place] Protein (U) [Mass/Vol] Trace Abnormal Negative [facility] Comment on above: Order Comment: Speci men Type: URINE SPECIMENOrdering Facility: [facility] Address: [address] [place] [address] Performed By: #### 2 4356-8 ####[facility] LABCLIA [id number] [address] [address] [place] RBC LM.HPF (Urine sed) [#/Area] 0-2 /HPF Normal 0-2 /HPF [facility] Comment on above: Order Comment: Speci men Type: URINE SPECIMENOrdering Facility: [facility] Address: [address] [place] [address] Performed By: #### 2 4356-8 ####[facility] LABIA [id number] [place] [address] [place] Specific gravity (U) [Rel density] 1.022 Normal 1.005-1.030 [facility] Comment on above: Order Comment: Speci men Type: URINE SPECIMENOrdering Facility: [facility] Address: [address] [place] [address] Performed By: #### 2 4356-8 ####[facility] LABIA [id number] [place] [address] [place] Urobilinogen Ql (U) 0.2 EU/dL Normal 0.2-1.0 EU/dL [facility] Comment on above: Order Comment: Speci men Type: URINE SPECIMENOrdering Facility: [facility] Address: [address] [place] [address] Performed By: #### 2 4356-8 ####[facility] LABIA [id number] [place] [id number] [place] WBC LM.HPF (Urine sed) [#/Area] 0-5 /HPF Normal 0-5 /HPF [facility] Comment on above: Order Comment: Speci men Type: URINE SPECIMENOrdering Facility: [facility] Address: [address] [place] [address] Performed By: #### 2 4356-8 ####[facility] LABIA [id number] [place] [id number] [place] XR HAND LEFT 3+ VIEWSon 06-17 XR HAND LEFT 3+ VIEWS Interpreted By: Yusuf Pickering, STUDY: XR HAND LEFT 3+ VIEWS; ; 07/05/2024 1:35 pm INDICATION: Signs/Symptoms:left hand pain. ,M25.532 Pain in left wrist,M79.642 Pain in left hand COMPARISON: None. ACCESSION NUMBER(S): [id number] ORDERING CLINICIAN: TAYO RODRIGUEZ FINDINGS: Left hand, three views There is no fracture. There is no dislocation. There are no degenerative changes. There is no lytic or sclerotic lesion. There is no soft tissue abnormality seen. No erosions seen IMPRESSION: Normal radiographs of the left hand MACRO: None Signed by: Yusuf Pickering 07/06/2024 6:46 PM Dictation workstation: [id number] [facility] XR WRIST LEFT 3+ VIEWSon XR WRIST LEFT 3+ VIEWS Interpreted By: Yusuf Pickering, STUDY: XR WRIST LEFT 3+ VIEWS; ; 07/05/2024 1:36 pm INDICATION: Signs/Symptoms:left wrist pain. ,M25.532 Pain in left wrist,M79.642 Pain in left hand COMPARISON: None. ACCESSION NUMBER(S): [id number] ORDERING CLINICIAN: TAYO RODRIGUEZ FINDINGS: Left wrist, three views There is no fracture. There is no dislocation. There are no degenerative changes. There is no lytic or sclerotic lesion. There is no soft tissue abnormality seen. IMPRESSION: Normal radiographs of the left wrist MACRO: None Signed by: Yusuf Pickering 07/06/2024 6:47 PM Dictation workstation: [id number] [facility] BI MAMMO LEFT DIAGNOSTIC HUEY OSYNTHESISon 06-25-2024 BI MAMMO LEFT DIAGNOSTIC TOMOSYNTHESIS Interpreted By: Marko Hogan, STUDY: BI MAMMO LEFT DIAGNOSTIC TOMOSYNTHESIS; 06/25/2024 1:27 pm ACCESSION NUMBER(S): [id number] ORDERING CLINICIAN: TAYO RODRIGUEZ INDICATION: Diagnostic mammogram, [...] Marko Hogan 06/26/2024 9:47 AM Dictation workstation: [id number] Normal [facility] BI MAMMO BILATERAL SCREENING TOMOSYNTHESISon 06-21-2024 BI MAMMO BILATERAL SCREENING TOMOSYNTHESIS Interpreted By: Erika Navarro, STUDY: BI MAMMO BILATERAL SCREENING TOMOSYNTHESIS; 06/21/2024 1:34 pm ACCESSION NUMBER(S): [id number] ORDERING CLINICIAN: TAYO RODRIGUEZ INDICATION: Screening. (Series [id number], Image 118) ,Z12.31 Encounter for screening mammogram [...] any future breast imaging appointments, please call [phone] ([phone]). MACRO: None Signed by: Erika Navarro 06/24/2024 12:23 PM Dictation workstation: [id number] Abnormal [facility] CULTURE, FUNGUS W/SMEAR NOT HAIR, SKIN, BLOODon 06-12-2024 CULTURE, FUNGUS W/SMEAR NOT HAIR, SKIN, BLOOD SEE NOTE Normal [facility] Comment on above: Result Comment: CULTURE, FUNGUS W/SMEAR NOT HAIR, SKIN, BLOOD Micro Number: [id number] Test Status: Final Specimen Source: Mouth Specimen Quality: Adequate Smear: No fungal elements seen. Result: No yeast isolated Performed By: #### 4 553 #### [facility] [address], [address] [place] [address] Examiner Of Currency: Bayron Day MD ALT SerPl-cCncon 05-14-2024 ALT [Catalytic activity/Vol] 12 U/L Normal 7-38 [facility] Comment on above: Order Comment: Speci men Type: BLOOD SPECIMENOrdering Facility: [facility] Address: [address] [place] [address] Performed By: #### 1 742-6, 1919-11, CRET1 ####[facility] [id number] [place] [address] [place] AST SerPl-cCncon 05-14-2024 AST [Catalytic activity/Vol] 18 U/L Normal 13-35 [facility] Comment on above: Order Comment: Speci men Type: BLOOD SPECIMENOrdering Facility: [facility] Address: [facility] [place] [address] Performed By: #### 1 742-6, 1919-11, CRET1 ####[facility] [id number] [place] [address] [place] C3 SerPl-mCncon 05-14-2024 Complement C3 [Mass/Vol] 102 mg/dL Normal 86-166 [facility] Comment on above: Order Comment: Speci men Type: BLOOD SPECIMENOrdering Facility: [facility] Address: [address] [place] [address] Performed By: #### 1 988-5, 4485-9, 4498-2 ####[facility] LABCLIA [id number] [place] [address] [place] C4 SerPl-mCncon 05-14-2024 Complement C4 [Mass/Vol] 14 mg/dL Normal 13-46 [facility] Comment on above: Order Comment: Luis A weathers Type: BLOOD SPECIMENOrdering Facility: [facility] Address: [facility] [place] [address] Performed By: #### 1 988-5, 4485-9, 4498-2 ####[facility] LABCLIA [id number] [place] [address] [place] CBC W Auto Differential pane l (Bld)on 05-14-2024 Basophils (Bld) [#/Vol] 10*3/uL Normal <0.11 [facility] Comment on above: Order Comment: Luis A weathers Type: BLOOD SPECIMENOrdering Facility: [facility] Address: [facility] [place] [address] Performed By: #### 5 7021-8 ####[facility] HOSPITALWAKLIA [id number] [place] [address] [place] Basophils/100 WBC (Bld) 0.4 % Normal [facility] Comment on above: Order Comment: Luis A weathers Type: BLOOD SPECIMENOrdering Facility: [facility] Address: [facility] [place] [address] Performed By: #### 5 7021-8 ####[facility] HOSPITALWAKLIA [id number] [place] [address] [place] Differential cell count method Nom (Bld) Auto Normal [facility] Comment on above: Order Comment: Luis A weathers Type: BLOOD SPECIMENOrdering Facility: [facility] Address: [facility] [place] [address] Performed By: #### 5 7021-8 ####[facility] [id number] [place] [address] [place] Eosinophils (Bld) [#/Vol] 0.12 10*3/uL Normal <0.46 [facility] Comment on above: Order Comment: Speci men Type: BLOOD SPECIMENOrdering Facility: [facility] Address: [address] [place] [address] Performed By: #### 5 7021-8 ####[facility] YASMINTAMLIA [id number] [place] [address] [place] Eosinophils/100 WBC (Bld) 2.2 % Normal [facility] Comment on above: Order Comment: Luis A weathers Type: BLOOD SPECIMENOrdering Facility: [facility] Address: [address] [place] [address] Performed By: #### 5 7021-8 ####[facility] BRENNONCHERIA [id number] [place] [address] [place] Erythrocyte distribution width (RBC) [Ratio] 13.0 % Normal 11.5-15.0 [facility] Comment on above: Order Comment: Luis A weathers Type: BLOOD SPECIMENOrdering Facility: [facility] Address: [address] [place] [address] Performed By: #### 5 7021-8 ####[facility] BRENNONMETAMORATAMLIA [id number] [place] [address] [place] Hematocrit (Bld) [Volume fraction] 40.9 % Normal 36.0-46.0 [facility] Comment on above: Order Comment: Luis A weathers Type: BLOOD SPECIMENOrdering Facility: [facility] Address: [address] [place] [address] Performed By: #### 5 7021-8 ####[facility] HOSPITALWNCLIA [id number] [place] [address] [place] Hemoglobin (Bld) [Mass/Vol] 13.1 g/dL Normal 11.5-15.5 [facility] Comment on above: Order Comment: Luis A weathers Type: BLOOD SPECIMENOrdering Facility: [facility] Address: [address] [place] [address] Performed By: #### 5 7021-8 ####[facility] MILLTOWNCLIA [id number] [place] [address] [place] Immature granulocytes (Bld) [#/Vol] 0.03 10*3/uL Normal <0.10 [facility] Comment on above: Order Comment: Speci men Type: BLOOD SPECIMENOrdering Facility: [facility] Address: [address] [place] [address] Performed By: #### 5 7021-8 ####[facility] HOSPITALWNCLIA [id number] [place] [address] [place] Immature granulocytes/100 WBC (Bld) 0.6 % Normal [facility] Comment on above: Order Comment: Speci men Type: BLOOD SPECIMENOrdering Facility: [facility] Address: [address] [place] [address] Performed By: #### 5 7021-8 ####[facility]ITALNCLIA [id number] [place] [address] [place] Lymphocytes (Bld) [#/Vol] 1.24 10*3/uL Normal 1.00-4.00 [facility] Comment on above: Order Comment: Speci men Type: BLOOD SPECIMENOrdering Facility: [facility] Address: [address] [place] [address] Performed By: #### 5 7021-8 ####[facility] HOSPITALWNCLIA [id number] [place] [address] [place] Lymphocytes/100 WBC (Bld) 22.8 % Normal [facility] Comment on above: Order Comment: Speci men Type: BLOOD SPECIMENOrdering Facility: [facility] Address: [address] [place] [address] Performed By: #### 5 7021-8 ####[facility]ITALNCL[facility] [id number] [place] [address] [place] MCH (RBC) [Entitic mass] 27.3 pg Normal 26.0-34.0 [facility] Comment on above: Order Comment: Dennysi jasiel Type: BLOOD SPECIMENOrdering Facility: [facility] Address: [address] [place], [place] [address] [address] Performed By: #### 5 7021-8 ####[facility]ITALNCLIA [id number] [place] [address] [place] MCHC (RBC) [Mass/Vol] 32.0 g/dL Normal 30.5-36.0 [facility] Comment on above: Order Comment: Dennysi jasiel Type: BLOOD SPECIMENOrdering Facility: [facility] Address: [address] [place] [address] Performed By: #### 5 7021-8 ####[facility] [id number] [place] [address] [place] MCV (RBC) [Entitic vol] 85.2 fL Normal 80.0-100.0 [facility] Comment on above: Order Comment: Dennysi jasiel Type: BLOOD SPECIMENOrdering Facility: [facility] Address: [address] [place] [address] Performed By: #### 5 7021-8 ####[facility]PITALLIA [id number] [place] [address] [place] Monocytes (Bld) [#/Vol] 0.52 10*3/uL Normal <0.87 [facility] Comment on above: Order Comment: Dennysi jasiel Type: BLOOD SPECIMENOrdering Facility: [facility] Address: [address] [place] [address] Performed By: #### 5 7021-8 ####[facility]ITALNCLIA [id number] [place] [address] [place] Monocytes/100 WBC (Bld) 9.6 % Normal [facility] Comment on above: Order Comment: Speci men Type: BLOOD SPECIMENOrdering Facility: [facility] Address: [address] [place] [address] Performed By: #### 5 7021-8 ####[facility] HOSPITALWNCLIA [id number] [place] [address] [place] Neutrophils (Bld) [#/Vol] 3.50 10*3/uL Normal 1.45-7.50 [facility] Comment on above: Order Comment: Dennysi men Type: BLOOD SPECIMENOrdering Facility: [facility] Address: [address] [place] [address] Performed By: #### 5 7021-8 ####[facility] HOSPITALWAKLIA [id number] [place] [address] [place] Neutrophils/100 WBC (Bld) 64.4 % Normal [facility] Comment on above: Order Comment: Dennysi men Type: BLOOD SPECIMENOrdering Facility: [facility] Address: [address] [place] [address] Performed By: #### 5 7021-8 ####[facility]PITALLIA [id number] [place] [address] [place] Nucleated RBC (Bld) [#/Vol] 10*3/uL Normal <0.01 [facility] Comment on above: Order Comment: Dennysi men Type: BLOOD SPECIMENOrdering Facility: [facility] Address: [address] [place] [address] Performed By: #### 5 7021-8 ####[facility] HOSPITALWNCLIA [id number] [place] [address] [place] Nucleated RBC/100 WBC (Bld) [Ratio] 0.0 /100 WBC Normal [facility] Comment on above: Order Comment: Dennysi men Type: BLOOD SPECIMENOrdering Facility: [facility] Address: [address] [place] [address] Performed By: #### 5 7021-8 ####[facility] MILLTOWNCLIA [id number] [place] [address] [place] Platelet mean volume (Bld) [Entitic vol] 10.2 fL Normal 9.0-12.7 [facility] Comment on above: Order Comment: Speci men Type: BLOOD SPECIMENOrdering Facility: [facility] Address: [address] [place] [address] Performed By: #### 5 7021-8 ####[facility] HOSPITALWNCLIA [id number] [place] [address] [place] Platelets (Bld) [#/Vol] 184 10*3/uL Normal 150-400 [facility] Comment on above: Order Comment: Speci men Type: BLOOD SPECIMENOrdering Facility: [facility] Address: [address] [place] [address] Performed By: #### 5 7021-8 ####[facility]ITALNCLIA [id number] [place] [address] [place] RBC (Bld) [#/Vol] 4.80 10*6/uL Normal 3.90-5.20 [facility] Comment on above: Order Comment: Speci men Type: BLOOD SPECIMENOrdering Facility: [facility] Address: [address] [place] [address] Performed By: #### 5 7021-8 ####[facility] HOSPITALWNCLIA [id number] [place] [address] [place] WBC (Bld) [#/Vol] 5.43 10*3/uL Normal 3.70-11.00 [facility] Comment on above: Order Comment: Speci men Type: BLOOD SPECIMENOrdering Facility: [facility] Address: [address] [place] [address] Performed By: #### 5 7021-8 ####[facility]ITALNCLIA [id number] [place] [address] [place] CREATININE BLDon 05-14-2024 Creatinine [Mass/Vol] 0.64 mg/dL Normal 0.58-0.96 [facility] Comment on above: Order Comment: Luis A weathers Type: BLOOD SPECIMENOrdering Facility: [facility] Address: [address] [place] [address] Performed By: #### 1 742-6, 1919-11, CRET1 ####[facility]ITALNCLI [id number] [place] [address] [place] Creatinine and Glomerular filtration rate.predicted panel (S/P/Bld) 112 mL/min/1.73m??? Normal >=60 [facility] Comment on above: Order Comment: Luis A weathers Type: BLOOD SPECIMENOrdering Facility: [facility] Address: [facility] [address] Result Comment: Yvonne mated Glomerular Filtration Rate [...] actual GFR. Performed By: #### 1 742-6, 1919-11, CRET1 ####[facility]ITALNCLIA [id number] [place] [id number] [place] CRP SerPl-mCncon 05-14-2024 CRP [Mass/Vol] 0.4 mg/dL Normal <0.9 [facility] Comment on above: Order Comment: Luis A weathers Type: BLOOD SPECIMENOrdering Facility: [facility] Address: [address] [place] [address] Performed By: #### 1 988-5, 4485-9, 4498-2 ####[facility] LABCLIA [id number] [place] [address] [place] DNA ANTIBODY DS BLDon 2024 DNA ANTIBODY 968 IU/mL High <=200 [facility] Comment on above: Order Comment: Speci men Type: BLOOD SPECIMENOrdering Facility: [facility] Address: [address] [place] [address] Result Comment: Nega tive: <200 IU/mL Equivocal: 201-300 IU/mL Moderate Positive: 301-800 IU/mL Strong Positive: >801 IU/mL Performed By: #### D NAAB ####[facility] LABCLIA [id number] [place] [address] [place] DNA ANTIBODY QUALITATIVE INTERPRETATION Positive Abnormal Negative [facility] Comment on above: Order Comment: Speci men Type: BLOOD SPECIMENOrdering Facility: [facility] Address: [address] [place] [address] Performed By: #### D NAAB ####[facility] LABCLIA [id number] [place] [address] [place] UREA NITROGEN, RANDOM URINEo n 05-14-2024 UREA NITROGEN,UR,RAN 149 mg/dL Normal 140-1500 [facility] Comment on above: Order Comment: Speci men Type: URINE SPECIMENOrdering Facility: [facility] Address: [address] [place] [address] Performed By: #### U UNR ####[facility] LABCLIA [id number] [place] [address] [place] Urinalysis complete panel (U )on 05-14-2024 Bacteria LM.HPF (Urine sed) [#/Area] Negative Normal Negative [facility] Comment on above: Order Comment: Speci men Type: URINE SPECIMENOrdering Facility: [facility] Address: [address] [place] [address] Performed By: #### 2 4356-8 ####[facility] LABCLIA [id number] [place] [id number] [place] Bilirubin Ql (U) Negative Normal Negative [facility] Comment on above: Order Comment: Speci men Type: URINE SPECIMENOrdering Facility: [facility] Address: [address] , [place] [id number] Performed By: #### 2 4356-8 ####[facility] LABCLIA [id number] [place] [address] [place] Clarity (Unsp spec) Clear Normal Clear [facility] Comment on above: Order Comment: Speci men Type: URINE SPECIMENOrdering Facility: [facility] Address: [address] , [place] [id number] Performed By: #### 2 4356-8 ####[facility] LABCLIA [id number] [place] [address] [place] Color (U) Yellow Normal Yellow [facility] Comment on above: Order Comment: Speci men Type: URINE SPECIMENOrdering Facility: [facility] Address: [address] [place] [address] Performed By: #### 2 4356-8 ####[facility] LABCLIA [id number] [place] [address] [place] Epithelial cells LM.HPF (Urine sed) [#/Area] Few Normal [facility] Comment on above: Order Comment: Speci men Type: URINE SPECIMENOrdering Facility: [facility] Address: [address] [place] [address] Performed By: #### 2 4356-8 ####[facility] LABCLIA [id number] [place] [address] [place] Glucose Test strip (U) [Mass/Vol] Negative Normal Negative [facility] Comment on above: Order Comment: Speci men Type: URINE SPECIMENOrdering Facility: [facility] Address: [address] [place] [id number] Performed By: #### 2 4356-8 ####[facility] LABCLIA [id number] [place] [address] [place] Hemoglobin Ql (U) Negative Normal Negative [facility] Comment on above: Order Comment: Speci men Type: URINE SPECIMENOrdering Facility: [facility] Address: [address] [place] [address] Performed By: #### 2 4356-8 ####[facility] LABCLIA [id number] [place] [address] [place] Hyaline casts (Urine sed) [#/Area] 0 /[LPF] Normal 0 /LPF [facility] Comment on above: Order Comment: Speci men Type: URINE SPECIMENOrdering Facility: [facility] Address: [facility] [address] Performed By: #### 2 4356-8 ####[facility] LABCLIA [id number] [place] [address] [place] Ketones Ql (U) Negative Normal Negative [facility] Comment on above: Order Comment: Speci men Type: URINE SPECIMENOrdering Facility: [facility] Address: [facility] [place] [address] Performed By: #### 2 4356-8 ####[facility] LABCLIA [id number] [place] [address] [place] Leukocyte esterase Test strip Ql (U) Trace Abnormal Negative [facility] Comment on above: Order Comment: Speci men Type: URINE SPECIMENOrdering Facility: [facility] Address: [address] [place] [address] Performed By: #### 2 4356-8 ####[facility] LABCLIA [id number] [place] [address] [place] Nitrite Ql (U) Negative Normal Negative [facility] Comment on above: Order Comment: Speci men Type: URINE SPECIMENOrdering Facility: [facility] Address: [facility] [place] [address] Performed By: #### 2 4356-8 ####[facility] LABCLIA [id number] [place] [address] [place] pH (U) 6.5 [pH] Normal <8.5 [facility] Comment on above: Order Comment: Speci men Type: URINE SPECIMENOrdering Facility: [facility] Address: [address] [place] [address] Performed By: #### 2 4356-8 ####[facility] LABCLIA [id number] [place] [address] [place] Protein (U) [Mass/Vol] Negative Normal Negative [facility] Comment on above: Order Comment: Speci men Type: URINE SPECIMENOrdering Facility: [facility] Address: [facility] [place] [address] Performed By: #### 2 4356-8 ####[facility] LABIA [id number] [place] [address] [place] RBC LM.HPF (Urine sed) [#/Area] 0-2 /HPF Normal 0-2 /HPF [facility] Comment on above: Order Comment: Speci men Type: URINE SPECIMENOrdering Facility: [facility] Address: [facility] [place] [address] Performed By: #### 2 4356-8 ####[facility] LABIA [id number] [place] [address] [place] Specific gravity (U) [Rel density] 1.009 Normal 1.005-1.030 [facility] Comment on above: Order Comment: Speci men Type: URINE SPECIMENOrdering Facility: [facility] Address: [facility] [place] [address] Performed By: #### 2 4356-8 ####[facility] LABIA [id number] [place] [address] [place] Urobilinogen Ql (U) 0.2 EU/dL Normal 0.2-1.0 EU/dL [facility] Comment on above: Order Comment: Speci men Type: URINE SPECIMENOrdering Facility: [facility] Address: [address] [place] [address] Performed By: #### 2 4356-8 ####[facility] LABIA [id number] [place] [address] [place] WBC LM.HPF (Urine sed) [#/Area] 0-5 /HPF Normal 0-5 /HPF [facility] Comment on above: Order Comment: Speci men Type: URINE SPECIMENOrdering Facility: [facility] Address: [address] , [place] [id number] Performed By: #### 2 4356-8 ####[facility] LABIA [id number] [place] [address] [place] CNOVon 03-29-2024 [facility] -------- TAMY VAZQUEZ ([id number]) 1980 F Date Time Provider Department 03/29/24 12:00 PM [facility] During your visit today, we recorded the following information about you: Temperature Pulse Respiration Blood pressure 98 degrees 83/minute 18/minute 103/70 Weight 52 kg Madison Medina, KARIN.HARJINDER 03/29/2024 1:27 PM Signed This note was created using NoteWriter. Subjective Tamy Vazquez is a 43 year [...] history is provided by the patient. 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 Musculoskeletal Problem This is a [...] of low vitamin D recheck normal Hyperparathyroidism ([facility]) 2014 parathyroidectomy Menorrhagia fibroids UFE Nephrolithiasis Osteoporosis 05/2022 with LOSS T-score -3.0 08/2022 nl urine calcium 260 Peripheral vascular disease ([facility]) Personal history of unspecified urinary disorder PMH - PAST MEDICAL HISTORY OF 04/18/2005 blood clot internal jugular vein, 4 weeks diagnosed Protein S deficiency ([facility]) 05/19/2002 cavernous sinus thrombosis 4 week Raynaud's syndrome CTD plaquenil Rib fracture 06/19/2014 Seasonal allergies Uterine fibroid s/p UFE PAST SURGICAL HISTORY Procedure Laterality Date EMBOLIZATION UTERINE FIBROID 03/18/2013 LAPAROSCOPIC APPENDECTOMY 03/30/2021 LAPS ABD PRTMANDOMENTUM DX W/WO SPEC BR/WA SPX 04/18/2004 Laparoscopy for endometriosis at [place] [facility] at [facility], no control afterward, ++relief and [...] Comment: occasional (more content not included)... Normal [facility] CNOVon 03-05-2024 OV Office Visit ([facility] ) -------- VAZQUEZ,TAMY Juarez ([id number]) 1980 F Date Time Provider Department 03/05/24 3:20 PM ALAN RENE During your visit today, we recorded the following information about you: Pulse Respiration Blood pressure 78/minute 16/minute 102/70 Alan Rene MD 03/05/2024 4:11 PM [facility] Respiratory [place] Tamy Ann Vazquez is a 43 year old female here for a follow up with the [facility] Interstitial Lung Disease Team. HISTORY OF PRESENT [...] BR/WA SPX 04/18/2004 Laparoscopy for endometriosis at [place] [facility] at 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 September 2020-cbc and hepatic wnl Pulmonary Function Data P (more content not included)... Normal [facility] Fungal Screen, YeastOrdered By: Nancy Zarco on 09-24-2023 Yeast Org specific cx Ql (Unsp spec) Regla albicans Abnormal [facility] Comment on above: Quantity is 1 colony only Yeast Org specific cx Ql (Un sp spec)Ordered By: Nancy Zarco on 09-24-2023 Interpretation and review of laboratory results Abnormal [facility] LUNG DIFFUSION CAPACITY (THEO O)on 08-31-2023 DLCO (ml/min/mmHg) 12.36 ml/min/mmHg [facility] DLCO/VA (ml/min/mmHg/L) 4.15 ml/min/mmHg/L [facility] DLCOcor (ml/min/mmHg) 12.36 ml/min/mmHg [facility] ETF62-69% PRE (L/S) 1.93 L/S [facility] FEV1 PRE (L) 1.63 L [facility] FEV1/FVC PRE (%) 85 % [facility] FVC PRE (L) 1.91 L [facility] PEF PRE (L/S) 5.63 L/S [facility] VA (L) 2.98 L [facility] No Panel Informationon 08-30 [facility] [address], [place] [address] Test Date: 2023-08-31 Pat Name: TAMY VAZQUEZ Department: Room: Gender: F 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 Tech: Rai Parker PRE-BRONCH POST-BRONCH Pre LLN Pred ULN %Pred Post %Pred %Chg SPIROMETRY FVC (L) 1.91 2.50 3.29 4.11 58 FEV1 (L) 1.63 2.05 2.73 3.37 59 FEV1/FVC 0.85 0.71 0.82 0.91 103 PEF L/s (L/sec) 5.63 5.14 6.82 8.50 82 FEF50 (L/sec) 2.26 2.08 3.69 5.30 61 FIF50 (L/sec) 2.64 FEF50/FIF50 0.86 90-100 FIVC (L) 1.88 ALG77-84 (L/sec) 1.93 1.68 2.84 4.27 68 Time [...] DLCO is hemoglobin corrected. Hemoglobin obtained from [facility] on 08/31/23.// PULMONARY FUNCTION LAB [facility] 36on 08-17-2023 36 We have been unable to reach your patient to schedule their testing. Test Name: FL esophagus barium swallow 1st Attempt: MyChart 2nd Attempt: tests done with [facility] 02/2023 11.8.23 no show//02.09. cx defer Normal [facility] XR Scapula - left AP and Lat eralon 03-18-2023 IMPRESSION: Unremark able exam with no acute findings Operations Analyst: EDGAR Transcribe Date/Time: Mar 18 2023 4:42P Dictated by : CLAUDIA GROVES MD This examination was interpreted and the report reviewed and electronically signed by: CLAUDIA GROVES MD on Mar 18 2023 4:43PM [facility] DIVISION OF RADIOLOGY * * *Final Report* [...] fracture or dislocation. DIVISION OF RADIOLOGY Provider, [facility] - 03/18/2023 * * *Final Report* * [...] IMPRESSION: Unremarkable exam with no acute findings Operations Analyst: PSCB Transcribe Date/Time: Mar 18 2023 4:42P Dictated by : CLAUDIA GROVES MD This examination was interpreted and the report reviewed and electronically signed by: CLAUDIA GROVES MD on Mar 18 2023 4:43PM EST [facility] Radiology Study observation (narrative) [facility] XR Scapula - left AP and Lat eralOrdered By: Ccf Provider on 03-18-2023 [facility] XR MODIFIED BARIUM SWALLOW W SPEECH THERAPYon 02-22-[address] [facility] [address] CHEST WO IVCONon 01-08-20 23 [facility] CHEST 2 VIEW PA AND LATon CHEST 2 VIEW PA AND LAT Patient Name: TAMY VAZQUEZ STUDY: TH CHEST 2 VIEW PA AND LAT; 12/23/2022 12:41 pm INDICATION: wheezing. COMPARISON: None. ACCESSION NUMBER(S): [id number] ORDERING CLINICIAN: TAYO RODRIGUEZ TECHNIQUE: 2 radiographs [...] warranted. Electronically signed by: CAROL MATHEW MD Normal [facility] XR Chest 2 Viewson 3 Bronchial wall [...] assessed with CT examination is clinically warranted. [facility] Interpreted By: CAROL MATHEW MD Patient Name: TAMY VAZQUEZ STUDY: CHEST 2 VIEW PA AND LAT; 12/23/2022 12:41 pm INDICATION: wheezing. COMPARISON: None. ACCESSION NUMBER(S): [id number] ORDERING CLINICIAN: TAYO RODRIGUEZ TECHNIQUE: 2 radiographs [...] be excluded. The osseous structures are intact. [facility] Christina Mathew MD - 12/23/2022 Interpreted By: CAROL MATHEW MD Patient Name: TAMY VAZQUEZ STUDY: CHEST 2 VIEW PA AND LAT; 12/23/2022 12:41 pm INDICATION: wheezing. COMPARISON: None. ACCESSION NUMBER(S): [id number] ORDERING CLINICIAN: TAYO RODRIGUEZ TECHNIQUE: 2 radiographs [...] assessed with CT examination is clinically warranted. [facility] Work Phone: Radiology Study observation (narrative) [facility] Work Phone: XR Chest 2 ViewsOrdered By: Carol Mathew on 12-23-2022 [facility] Work Phone: LUNG DIFFUSION CAPACITY (THEO O)on 12-13-2022 DLCO (ml/min/mmHg) 9.98 ml/min/mmHg [facility] DLCO/VA (ml/min/mmHg/L) 3.86 ml/min/mmHg/L [facility] DLCOcor (ml/min/mmHg) 10.04 ml/min/mmHg [facility] GRT88-82% PRE (L/S) 1.71 L/S [facility] FEV1 PRE (L) 1.43 L [facility] FEV1/FVC PRE (%) 87 % [facility] FVC PRE (L) 1.64 L [facility] PEF PRE (L/S) 3.98 L/S [facility] VA (L) 2.59 L [facility] SPIROMETRY BASELINE ONLYon 0 12-13-2022 [facility] INFLUENZA A/B, COVID 2019 PC R,SYMPTOMATICon 06-30-2022 SARS-CoV-2 (COVID-19) RNA SARA+probe Ql (Unsp spec) Not detected Normal Not Detected [facility] Comment on above: Result Comment: [...] this test method. Fact sheet for providers: https://www.fda.gov/media/732799/download Fact sheet for patients: https://www.fda.gov/media/554000/download This test has received FDA Emergency Use Authorization (EUA) and has been verified for use by [facility] ([facility]). This test is only authorized for the duration of time that circumstances exist to justify the authorization of the emergency use of in vitro diagnostic tests for the detection of SARS-CoV-2 virus and/or diagnosis of COVID-19 infection under section 564(b)(1) of the Act, 21 U.S.C. 360bbb-3(b)(1), unless the authorization is terminated or revoked sooner. [facility] is certified under CLIA-88 as qualified to perform high complexity testing. Testing is performed in the [facility] laboratories located at [address] [place] [address]. Performed By: #### C OINP #### [place] [address] INFLUENZA A, PCR Not detected Normal Not Detected [facility] Comment on above: Result Comment: Resp iratory virus testing is performed routinely by PCR for Influenza A/B and RSV. If Influenza and RSV PCR are negative, testing for parainfluenza 1,2,3 viruses and adenovirus is routinely performed for oncology inpatients and intensive care unit patients at [facility] and is available on request on other patients by calling Laboratory Client Services at [phone]. Not Detected results do not preclude Influenza A/B or RSV infections since the adequacy of sample collection or low viral burden may impact the clinical sensitivity of this test method. Performed By: #### C OINP #### [place] [address] INFLUENZA B, PCR Not detected Normal Not Detected [facility] Comment on above: Result Comment: Resp iratory virus testing is performed routinely by PCR for Influenza A/B and RSV. If Influenza and RSV PCR are negative, testing for parainfluenza 1,2,3 viruses and adenovirus is routinely performed for oncology inpatients and intensive care unit patients at [facility] and is available on request on other patients by calling Laboratory Client Services at [phone] Not Detected results do not preclude Influenza A/B or RSV infections since the adequacy of sample collection or low viral burden may impact the clinical sensitivity of this test method. Performed By: #### C OINP #### [place] [address] Influenza virus A and B and SARS-CoV-2 (COVID-19) identified SARA+probe Nom (Resp)on 06-30-2022 FLUAV RNA SARA+probe Ql (Resp) Not detected Not Detected [facility] Comment on above: Respiratory virus te sting is performed routinely by PCR for Influenza A/B and RSV. If Influenza and RSV PCR are negative, testing for parainfluenza 1,2,3 viruses and adenovirus is routinely performed for oncology inpatients and intensive care unit patients at [facility] and is available on request on other patients by calling Laboratory Client Services at [phone]. Not Detected results do not preclude Influenza A/B or RSV infections since the adequacy of sample collection or low viral burden may impact the clinical sensitivity of this test method. FLUBV RNA SARA+probe Ql (Resp) Not detected Not Detected [facility] Comment on above: Respiratory virus te sting is performed routinely by PCR for Influenza A/B and RSV. If Influenza and RSV PCR are negative, testing for parainfluenza 1,2,3 viruses and adenovirus is routinely performed for oncology inpatients and intensive care unit patients at [facility] and is available on request on other patients by calling Laboratory Client Services at [phone] Not Detected results do not preclude Influenza A/B or RSV infections since the adequacy of sample collection or low viral burden may impact the clinical sensitivity of this test method. SARS-CoV-2 (COVID-19) RNA SARA+probe Ql (Unsp spec) Not detected Not Detected [facility] Comment on above: . This assay is designed to detect the ORF1a/b and E genes of SARS-CoV-2 via nucleic acid amplification. A Not Detected result does not preclude 2019-nCoV infection since the adequacy of sample collection and/or low viral burden may result in presence of viral nucleic acids below the clinical sensitivity of this test method. Fact sheet for providers: https://www.fda.gov/media/452446/download Fact sheet for patients: https://www.fda.gov/media/021592/download This test has received FDA Emergency Use Authorization (EUA) and has been verified for use by [facility] ([facility]). This test is only authorized for the duration of time that circumstances exist to justify the authorization of the emergency use of in vitro diagnostic tests for the detection of SARS-CoV-2 virus and/or diagnosis of COVID-19 infection under section 564(b)(1) of the Act, 21 U.S.C. 360bbb-3(b)(1), unless the authorization is terminated or revoked sooner. [facility] is certified under CLIA-88 as qualified to perform high complexity testing. Testing is performed in the [facility] laboratories located at [address] [place] [address]. [facility] RSV PCRon 06-30-2022 RSV,PCR Not detected Normal Not Detected [facility] Comment on above: Result Comment: Resp iratory virus testing is performed routinely by PCR for Influenza A/B and RSV. If Influenza and RSV PCR are negative, testing for parainfluenza 1,2,3 viruses and adenovirus is routinely performed for oncology inpatients and intensive care unit patients at [facility] and is available on request on other patients by calling Laboratory Client Services at [phone]. Not Detected results do not preclude Influenza A/B or RSV infections since the adequacy of sample collection or low viral burden may impact the clinical sensitivity of this test method. Performed By: #### R SVPC #### [place] [address] [place] [address] RSV RNA SARA+probe Ql (Resp) Not detected Not Detected [facility] Comment on above: Respiratory virus te sting is performed routinely by PCR for Influenza A/B and RSV. If Influenza and RSV PCR are negative, testing for parainfluenza 1,2,3 viruses and adenovirus is routinely performed for oncology inpatients and intensive care unit patients at [facility] and is available on request on other patients by calling Laboratory Client Services at [phone]. Not Detected results do not preclude Influenza A/B or RSV infections since the adequacy of sample collection or low viral burden may impact the clinical sensitivity of this test method. RSV RNA SARA+probe Ql (Resp)o n 06-30-2022 [facility] INFLUENZA A/B, COVID 2019 PC R,SYMPTOMATICon 06-29-2022 Lab Specimen Source Normal [facility], [place] Comment on above: Performed By: #### C OINP #### [facility] [id number] [place] [address] Performed By: #### R SVPC #### [place] [address] No Panel Informationon 06-29 Interpretation and review of laboratory results Normal [facility] Work Phone: [facility] Work Phone: POCT Infectious mononucleosi s antibody manually resultedon 06-29-2022 POC Rapid [place] Negative Negative [facility] Work Phone: POCT rapid strep A manually resultedon 06-29-2022 POC Rapid Strep Negative Negative [facility] Work Phone: CT Neck WO contraston 2022 * There is no eviden ce of mass, cyst or adenopathy in the neck. THIS EXAMINATION WAS INTERPRETED AT [facility] Interpreted By: SUKH PEARSON MD Patient Name: TAMY VAZQUEZ STUDY: CT NECK W/O CONTRAST; 06/23/2022 1:16 pm INDICATION: multiple hard lymph nodes ant cervical, Failed abx. COMPARISON: None. ACCESSION NUMBER(S): [id number] ORDERING CLINICIAN: TAYO RODRIGUEZ TECHNIQUE: Noncontrast CT was performed from the skullbase to the thoracic inlet and multiplanar reconstructions were made. FINDINGS: * The visualized paranasal sinuses nasopharynx and oropharynx are unremarkable. *The major salivary glands are normal. *There is no measurable cervical lymphadenopathy. *The larynx and related cartilages are normal. *The thyroid gland is normal. *The thoracic inlet is normal. [facility] Sukh Pearson MD - 06/23/2022 Interpreted By: SUKH PEARSON MD Patient Name: CONI VAZQUEZINI STUDY: CT NECK W/O CONTRAST; 06/23/2022 1:16 pm INDICATION: multiple hard lymph nodes ant cervical, Failed abx. COMPARISON: None. ACCESSION NUMBER(S): [id number] ORDERING CLINICIAN: TAYO RODRIGUEZ TECHNIQUE: Noncontrast CT [...] the neck. THIS EXAMINATION WAS INTERPRETED AT [facility] Work Phone: CT Neck WO contrastOrdered B y: Sukh Pearson on 06-23-2022 [facility] Work Phone: NR CT NECK W/O CONTRASTon NR CT NECK W/O CONTRAST Patient Name: TAMY VAZQUEZ STUDY: CT NECK W/O CONTRAST; 06/23/2022 1:16 pm INDICATION: multiple hard lymph nodes ant cervical, Failed abx. COMPARISON: None. ACCESSION NUMBER(S): [id number] ORDERING CLINICIAN: TAYO RODRIGUEZ TECHNIQUE: Noncontrast CT [...] the neck. THIS EXAMINATION [place]PRET[place] [facility] [place] signed by: SUKH PEARSON MD Normal [facility] Neck WO contraston 2022 Radiology Study observation (narrative) [facility] Work Phone: TSH BLDon 06-17-2022 TSH Qn 1.880 m[IU]/L 0.270 - 4.200 mIU/L [facility] VITAMIN D 25 HYDROXYon 06-17 25-hydroxyvitamin D3 [Mass/Vol] 54.2 ng/mL 31.0 - 80.0 ng/mL [facility] LUNG DIFFUSION CAPACITY (THEO O)on 06-01-2022 DLCO (ml/min/mmHg) 11.03 ml/min/mmHg [facility] DLCO/VA (ml/min/mmHg/L) 3.80 ml/min/mmHg/L [facility] DLCOcor (ml/min/mmHg) 11.32 ml/min/mmHg [facility] AVF59-28% PRE (L/S) 1.54 L/S [facility] FEV1 PRE (L) 1.59 L [facility] FEV1/FVC PRE (%) 81 % [facility] FVC PRE (L) 1.95 L [facility] PEF PRE (L/S) 5.64 L/S [facility] VA (L) 2.90 L [facility] SPIROMETRY BASELINE ONLYon 0 06-01-2022 [facility] No Panel Informationon 05-31 [facility] Laboratory - Coagulationon 0 04-30-2022 INR Coag (Bld) [Relative time] 3.0 {INR} [facility] Work Phone: No Panel Informationon 04-30 1 wk [employer] [facility] Work Phone: Pt self adjusts per Dr Rodriguez [facility] Work Phone: US LEG VEIN DVT UNL VAS LABo n 02-17-2022 [facility] Hepatic function 2000 panelo n 02-16-2022 Albumin [Mass/Vol] 4.4 g/dL 3.9 - 4.9 g/dL [facility] ALP [Catalytic activity/Vol] 96 U/L 34 - 123 U/L [facility] ALT [Catalytic activity/Vol] 49 U/L High 7 - 38 U/L [facility] AST [Catalytic activity/Vol] 42 U/L High 13 - 35 U/L [facility] Bilirubin [Mass/Vol] 0.8 mg/dL 0.2 - 1 .3 mg/dL [facility] Bilirubin.conjugated [Mass/Vol] <0.2 mg/dL [facility] Protein [Mass/Vol] 8.5 g/dL High 6.3 - 8.0 g/dL [facility] CBC W Auto Differential pane l (Bld)on 02-15-2022 Basophils (Bld) [#/Vol] 0.03 10*3/uL <0.11 k/uL [facility] Basophils/100 WBC (Bld) 0.7 % [facility] Differential cell count method Nom (Bld) Auto [facility] Eosinophils (Bld) [#/Vol] 0.08 10*3/uL <0.46 k/uL [facility] Eosinophils/100 WBC (Bld) 1.9 % [facility] Erythrocyte distribution width (RBC) [Ratio] 14.3 % 11.5 - 15.0 % [facility] Hematocrit (Bld) [Volume fraction] 38.4 % 36.0 - 46.0 % [facility] Hemoglobin (Bld) [Mass/Vol] 12.6 g/dL 11.5 - 15.5 g/dL [facility] Immature granulocytes (Bld) [#/Vol] <0.10 k/uL [facility] Immature granulocytes/100 WBC (Bld) 0.2 % [facility] Lymphocytes (Bld) [#/Vol] 1.11 10*3/uL 1.00 - 4.00 k/uL [facility] Lymphocytes/100 WBC (Bld) 26.7 % [facility] MCH (RBC) [Entitic mass] 29.4 pg 26.0 - 34.0 pg [facility] MCHC (RBC) [Mass/Vol] 32.8 g/dL 30.5 - 36.0 g/dL [facility] MCV (RBC) [Entitic vol] 89.5 fL 80.0 - 100.0 fL [facility] Monocytes (Bld) [#/Vol] 0.60 10*3/uL <0.87 k/uL [facility] Monocytes/100 WBC (Bld) 14.5 % [facility] Neutrophils (Bld) [#/Vol] 2.32 10*3/uL 1.45 - 7.50 k/uL [facility] Neutrophils/100 WBC (Bld) 56.0 % [facility] Nucleated RBC (Bld) [#/Vol] <0.01 k/uL [facility] Nucleated RBC/100 WBC (Bld) [Ratio] 0.0 /100 WBC [facility] Platelet mean volume (Bld) [Entitic vol] 9.8 fL 9.0 - 12.7 fL [facility] Platelets (Bld) [#/Vol] 168 10*3/uL 150 - 400 k/uL [facility] RBC (Bld) [#/Vol] 4.29 10*6/uL 3.90 - 5.2 0 m/uL [facility] WBC (Bld) [#/Vol] 4.15 10*3/uL 3.70 - 11. 00 k/uL [facility] CT CHEST WO IVCONon 01-19-20 [facility] LUNG DIFFUSION CAPACITY (THEO O)on 12-14-2021 DLCO (ml/min/mmHg) 10.87 ml/min/mmHg [facility] DLCO/VA (ml/min/mmHg/L) 3.78 ml/min/mmHg/L [facility] DLCOcor (ml/min/mmHg) 11.27 ml/min/mmHg [facility] HYM88-31% PRE (L/S) 1.74 L/S [facility] FEV1 PRE (L) 1.62 L [facility] FEV1/FVC PRE (%) 82 % [facility] FVC PRE (L) 1.99 L [facility] PEF PRE (L/S) 5.25 L/S [facility] VA (L) 2.88 L [facility] Laboratory - Coagulationon 0 10-28-2021 INR Coag (Bld) [Relative time] 2.7 {INR} [facility] Work Phone: No Panel Informationon 10-28 Yes [facility] n Work Phone: 2 weeks [facility] n Work Phone: pt self adjusts [facility] Work Phone: 2.5 MWF, 3 [facility] Work Phone: Laboratory - Coagulationon 0 10-15-2021 INR Coag (Bld) [Relative time] 2.7 {INR} [facility] Work Phone: INR Coag (Bld) [Relative time] 1.6 {INR} [facility] Work Phone: No Panel Informationon 10-15 Yes [facility] Work Phone: 2 weeks -[facility] Work Phone: same -[facility] Work Phone: pt self adjusts [facility] Work Phone: 2.5 on M,W,F & 3 mg on all other days [facility] Work Phone: Office Visit (Family Medicin e)on 07-31-2021 Follow-up visit Diagnoses/Problems Sore throat [...] Aug 17 2021 11:04PM EST (Author) Normal [facility] - Coagulationon 0 - INR Coag (Bld) [Relative time] 3.0 {INR} -[facility] Work Phone: No Panel Informationon 07-21 Yes [facility] Work Phone: 1 wk [facility] Work Phone: same [facility] Work Phone: 2.5 mg M,W,F & 3 mg on all other days [facility] Work Phone: Laboratory - Coagulationon 0 07-14-2021 INR Coag (Bld) [Relative time] 2.4 {INR} [facility] Work Phone: No Panel Informationon 07-14 Yes [facility] Work Phone: 1 wk [facility] Work Phone: same -[facility] n Work Phone: 2.5 mg on M,W,F & 3 mg on all other days [facility] n Work Phone: Mamm - Screening Mammogram w / Tomosynthesison 07-08-2021 MG Breast Screening Please click on the link to view the study images Normal [facility] n Work Phone: MG Breast Screening Normal [facility] n Work Phone: Laboratory - Coagulationon 0 06-23-2021 INR Coag (Bld) [Relative time] 1.9 {INR} [facility] Work Phone: No Panel Informationon 06-23 Yes [facility] Work Phone: 1 wk [facility] Work Phone: same [facility] [facility] Work Phone: 2.5 mg on M,W,F & 3 mg on all other days [facility] Work Phone: Laboratory - Microbiology an d Antimicrobial susceptibilityon 05-01-2021 SARS-CoV-2 (COVID-19) IgG IA.rapid Ql (S/P/Bld) Covid 19 IgG Normal [facility] Work Phone: No Panel Informationon 05-01 View results in Scan jayson Documents link when available. Normal -[facility] Work Phone: Laboratory - Coagulationon 0 04-28-2021 INR Coag (Bld) [Relative time] 2.0 {INR} [facility] Work Phone: No Panel Informationon 04-28 Yes [facility] [facility] Work Phone: 2 wks [facility] Work Phone: same -[facility] Work Phone: Alt 2.5 & 3 mg [facility] Work Phone: Office Visit ([facility])on 04-28-2021 Follow-up visit Diagnoses/Problems Secondary hypercoagulable state [...] visit. History of [facility] Has a left hand index finger. Has [...] Apr 28 2021 2:38PM EST (Author) Normal [facility] Office Visit (Family Minerva marte)on 12-11-2020 Follow-up [...] Never smoker Tobacco Use Screening; Status:Complete; Done: [id number] Patient Discussion/Summary We will start spironolactone 25 mg daily. 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 She has secondary hypercoagulable state possibly [...] TABLET DAILY DIRECTED. Vitals Vital Signs Recorded: [id number] 09:39AM Qvpjmqaxfnd94.5 F Heart Rate64 Kdnpkogl222 Cvamcyihp09 Height5 ft 4 in Ikomby288 lb BMI Itjtqlodsk45.74 kg/m2 BSA Calculated1.55 Physical Exam Constitutional: Alert [...] Intact (more content not included)... 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 Clinical Summary: HMSPatient IDon 08-29-2019 [facility] Work Phone: Culture Urine Qnton 04-16-20 19 Culture Urine Qnt Culture Observations: No growth (<1,000 CFU/mL) Susceptibility Data: --- [facility] Comment on above: Order Comment: SUBHASH p erformed at additional charge when indicated Performed By: #### C DAGO #### [facility] [address] [place] [address] Vital Signs Date Time Vital Sign Value Performing Clinician Facility 12-20-2024 08:29-0400 Body height 160 cm Tayo Rodriguez MD Work Phone: [facility] 12-20-2024 08:29-0400 Body mass index (BMI) [Ratio] 20.41 kg/m2 Tayo Rodriguez MD Work Phone: [facility] 12-20-2024 08:29-0400 Body temperature 97.9 [degF] Tayo Rodriguez MD Work Phone: [facility] 12-20-2024 08:29-0400 Body weight 52.25 kg Tayo Rodriguez MD Work Phone: [facility] 12-20-2024 08:29-0400 Diastolic blood pressure 67 mm[Hg] Tayo Rodriguez MD Work Phone: [facility] 12-20-2024 08:29-0400 Heart rate 82 /min Tayo Rodriguez MD Work Phone: [facility] 12-20-2024 08:29-0400 SaO2% (BldA) [Mass fraction] 95 % Tayo Rodriguez MD Work Phone: [facility] 12-20-2024 08:29-0400 Systolic blood pressure 95 mm[Hg] Taoy Rodriguez MD Work Phone: [facility] 11-19-2024 09:44-0400 Body temperature 97.2 [degF] [facility] Work Phone: [facility] 11-19-2024 09:44-0400 Diastolic blood pressure 65 mm[Hg] [facility] Work Phone: [facility] 11-19-2024 09:44-0400 Heart rate 74 /min [facility] Work Phone: [facility] 11-19-2024 09:44-0400 SaO2% (BldA) [Mass fraction] 99 % [facility] Work Phone: [facility] 11-19-2024 09:44-0400 Systolic blood pressure 99 mm[Hg] [facility] Work Phone: [facility] 10-31-2024 14:59-0400 Body height 160.5 cm Carmella Cabrera APRN.JEWELRY SALES ASSOCIATE Work Phone: [facility] 10-31-2024 14:59-0400 Body mass index (BMI) [Ratio] 20.43 kg/m2 Carmella Cabrera APRN.JEWELRY SALES ASSOCIATE Work Phone: [facility] 10-31-2024 14:59-0400 Body weight 52.62 kg Carmella Cabrera APRN.JEWELRY SALES ASSOCIATE Work Phone: [facility] 10-31-2024 14:59-0400 Diastolic blood pressure 64 mm[Hg] Carmella Cabrera APRN.JEWELRY SALES ASSOCIATE Work Phone: [facility] 10-31-2024 14:59-0400 Systolic blood pressure 90 mm[Hg] Carmella Cabrera APRN.JEWELRY SALES ASSOCIATE Work Phone: [facility] 07-30-2024 15:15-0400 Diastolic blood pressure 67 mm[Hg] Alan Rene MD Work Phone: [facility] 07-30-2024 15:15-0400 Heart rate 85 /min Alan Rene MD Work Phone: [facility] 07-30-2024 15:15-0400 Respiratory rate 20 /min Alan Rene MD Work Phone: [facility] 07-30-2024 15:15-0400 SaO2% (BldA) [Mass fraction] 98 % Alan Rene MD Work Phone: [facility] 07-30-2024 15:15-0400 Systolic blood pressure 97 mm[Hg] Alan Rene MD Work Phone: [facility] 07-30-2024 14:53-0400 Body mass index (BMI) [Ratio] 20.57 kg/m2 [facility] [place] Work Phone: [facility] 07-30-2024 14:53-0400 Body weight 53.5 kg [facility] [place] Work Phone: [facility] 06-21-2024 13:17-0500 Body height [address] cm [address] 06-21-2024 13:17-0500 Body mass index (BMI) [Ratio] 20.55 kg/m2 [address] 06-21-2024 13:17-0500 Body weight 52.62 kg [address] 06-04-2024 10:06-0500 Body height 160 cm Tayo Rodriguez MD Work Phone: [facility] 06-04-2024 10:06-0500 Body mass index (BMI) [Ratio] 20.62 kg/m2 Tayo Rodriguez MD Work Phone: [facility] 06-04-2024 10:06-0500 Body temperature 98.2 [degF] Tayo Rodriguez MD Work Phone: [facility] 06-04-2024 10:06-0500 Body weight 52.8 kg Tayo Rodriguez MD Work Phone: [facility] 06-04-2024 10:06-0500 Diastolic blood pressure 62 mm[Hg] Tayo Rodriguez MD Work Phone: [facility] 06-04-2024 10:06-0500 Heart rate 81 /min Tayo Rodriguez MD Work Phone: [facility] 06-04-2024 10:06-0500 SaO2% (BldA) [Mass fraction] 98 % Tayo Rodriguez MD Work Phone: [facility] 06-04-2024 10:06-0500 Systolic blood pressure 100 mm[Hg] Tayo Rodriguez MD Work Phone: [facility] 03-29-2024 12:03-0500 Body mass index (BMI) [Ratio] 19.99 kg/m2 Madison Medina INDUSTRIAL MAINTENANCE MECHANIC.JEWELRY SALES ASSOCIATE Work Phone: [facility] 03-29-2024 12:03-0500 Body temperature 98.01 [degF] Madison Medina INDUSTRIAL MAINTENANCE MECHANIC.JEWELRY SALES ASSOCIATE Work Phone: [facility] 03-29-2024 12:03-0500 Body weight 52 kg Madison Medina INDUSTRIAL MAINTENANCE MECHANIC.JEWELRY SALES ASSOCIATE Work Phone: [facility] 03-29-2024 12:03-0500 Diastolic blood pressure 70 mm[Hg] Madison Medina INDUSTRIAL MAINTENANCE MECHANIC.JEWELRY SALES ASSOCIATE Work Phone: [facility] 03-29-2024 12:03-0500 Heart rate 83 /min Madison Medina INDUSTRIAL MAINTENANCE MECHANIC.JEWELRY SALES ASSOCIATE Work Phone: [facility] 03-29-2024 12:03-0500 Respiratory rate 18 /min Madison Medina INDUSTRIAL MAINTENANCE MECHANIC.JEWELRY SALES ASSOCIATE Work Phone: [facility] 03-29-2024 12:03-0500 SaO2% (BldA) [Mass fraction] 99 % Madison Sage INDUSTRIAL MAINTENANCE MECHANIC.JEWELRY SALES ASSOCIATE Work Phone: [facility] 03-29-2024 12:03-0500 Systolic blood pressure 103 mm[Hg] Madison Medina INDUSTRIAL MAINTENANCE MECHANIC.JEWELRY SALES ASSOCIATE Work Phone: [facility] 03-05-2024 15:17-0500 Diastolic blood pressure 70 mm[Hg] Alan Rene MD Work Phone: [facility] 03-05-2024 15:17-0500 Heart rate 78 /min Alan Rene MD Work Phone: [facility] 03-05-2024 15:17-0500 Respiratory rate 16 /min Alan Rene MD Work Phone: [facility] 03-05-2024 15:17-0500 SaO2% (BldA) [Mass fraction] 98 % Alan Rene MD Work Phone: [facility] 03-05-2024 15:17-0500 Systolic blood pressure 102 mm[Hg] Alan Rene MD Work Phone: [facility] 11-17-2023 09:38-0400 Body temperature 98.8 [degF] [facility] Work Phone: [facility] 11-17-2023 09:38-0400 Diastolic blood pressure 71 mm[Hg] [facility] Work Phone: [facility] 11-17-2023 09:38-0400 Heart rate 83 /min [facility] Work Phone: [facility] 11-17-2023 09:38-0400 Respiratory rate 18 /min [facility] Work Phone: [facility] 11-17-2023 09:38-0400 SaO2% (BldA) [Mass fraction] 98 % [facility] Work Phone: [facility] 11-17-2023 09:38-0400 Systolic blood pressure 99 mm[Hg] [facility] Work Phone: [facility] 09-21-2023 11:34-0400 Body height 161.9 cm Tayo Rodriguez MD Work Phone: [facility] 09-21-2023 11:34-0400 Body mass index (BMI) [Ratio] 18.38 kg/m2 Tayo Rodriguez MD Work Phone: [facility] 09-21-2023 11:34-0400 Body weight 48.2 kg Tayo Rodriguez MD Work Phone: [facility] 09-21-2023 11:34-0400 Diastolic blood pressure 63 mm[Hg] Tayo Rodriguez MD Work Phone: [facility] 09-21-2023 11:34-0400 Heart rate 94 /min Tayo Rodriguez MD Work Phone: [facility] 09-21-2023 11:34-0400 SaO2% (BldA) [Mass fraction] 94 % Tayo Rodriguez MD Work Phone: [facility] 09-21-2023 11:34-0400 Systolic blood pressure 90 mm[Hg] Tayo Rodriguez MD Work Phone: [facility] 08-31-2023 11:35-0400 Diastolic blood pressure 62 mm[Hg] Alan Rene MD Work Phone: [facility] 08-31-2023 11:35-0400 Heart rate 78 /min Alan Rene MD Work Phone: [facility] 08-31-2023 11:35-0400 Respiratory rate 18 /min Alan Rene MD Work Phone: [facility] 08-31-2023 11:35-0400 SaO2% (BldA) [Mass fraction] 98 % Alan Rnee MD Work Phone: [facility] 08-31-2023 11:35-0400 Systolic blood pressure 92 mm[Hg] Alan Rene MD Work Phone: [facility] 08-16-2023 08:55-0400 Body mass index (BMI) [Ratio] 18.13 kg/m2 Lora Rodrigues MD Work Phone: [facility] 08-16-2023 08:55-0400 Body weight 47.17 kg Lora Rodrigues MD Work Phone: [facility] 03-30-2023 11:53-0500 Diastolic blood pressure 62 mm[Hg] Alan Rene MD Work Phone: [facility] 03-30-2023 11:53-0500 Systolic blood pressure 89 mm[Hg] Alan Rene MD Work Phone: [facility] 03-30-2023 11:51-0500 Heart rate 62 /min Alan Rene MD Work Phone: [facility] 03-30-2023 11:51-0500 Respiratory rate 18 /min Alan Rene MD Work Phone: [facility] 03-30-2023 11:51-0500 SaO2% (BldA) [Mass fraction] 98 % Alan Rene MD Work Phone: [facility] 12-23-2022 11:14-0400 Body mass index (BMI) [Ratio] 20.37 kg/m2 Tayo Rodriguez MD Work Phone: [facility] 12-23-2022 11:14-0400 Body temperature 98.29 [degF] Tayo Rodriguez MD Work Phone: [facility] 12-23-2022 11:14-0400 Body weight 52.16 kg Tayo Rodriguez MD Work Phone: [facility] 12-23-2022 11:14-0400 Diastolic blood pressure 76 mm[Hg] Tayo Rodriguez MD Work Phone: [facility] 12-23-2022 11:14-0400 Heart rate 83 /min Tayo Rodriguez MD Work Phone: [facility] 12-23-2022 11:14-0400 Respiratory rate 16 /min Tayo Rodriguez MD Work Phone: [facility] 12-23-2022 11:14-0400 SaO2% (BldA) [Mass fraction] 97 % Tayo Rodriguez MD Work Phone: [facility] 12-23-2022 11:14-0400 Systolic blood pressure 108 mm[Hg] Tayo Rodriguez MD Work Phone: [facility] 12-16-2022 13:52-0400 Body weight 53.52 kg Lora Rodrigues MD Work Phone: [facility] 12-13-2022 14:05-0400 Body temperature 99 [degF] Alan Rene MD Work Phone: [facility] 12-13-2022 14:05-0400 Diastolic blood pressure 73 mm[Hg] Alan Rene MD Work Phone: [facility] 12-13-2022 14:05-0400 Heart rate 102 /min Alan Rene MD Work Phone: [facility] 12-13-2022 14:05-0400 Respiratory rate 16 /min Alan Rene MD Work Phone: [facility] 12-13-2022 14:05-0400 SaO2% (BldA) [Mass fraction] 97 % Alan Rene MD Work Phone: [facility] 12-13-2022 14:05-0400 Systolic blood pressure 103 mm[Hg] Alan Rene MD Work Phone: [facility] 08-25-2022 15:13-0400 Body temperature 97.9 [degF] [facility] Work Phone: [facility] 08-25-2022 15:13-0400 Diastolic blood pressure 64 mm[Hg] [facility] Work Phone: [facility] 08-25-2022 15:13-0400 Heart rate 56 /min [facility] Work Phone: [facility] 08-25-2022 15:13-0400 Systolic blood pressure 90 mm[Hg] [facility] Work Phone: [facility] 08-12-2022 13:16-0400 Diastolic blood pressure 60 mm[Hg] Gale Waryk INDUSTRIAL MAINTENANCE MECHANIC.JEWELRY SALES ASSOCIATE Work Phone: [facility] 08-12-2022 13:16-0400 Systolic blood pressure 102 mm[Hg] Gale Waryk INDUSTRIAL MAINTENANCE MECHANIC.JEWELRY SALES ASSOCIATE Work Phone: [facility] [facility] 08[facility]2022 11:07-0400 Body height 161.3 cm Joslyn Carrion MD Work Phone: [facility] 08-12-2022 11:07-0400 Body weight 54.57 kg Joslyn Carrion MD Work Phone: [facility] 08-12-2022 11:07-0400 Diastolic blood pressure 60 mm[Hg] Joslyn Carrion MD Work Phone: [facility] 08-12-2022 11:07-0400 Systolic blood pressure 102 mm[Hg] Joslyn Carrion MD Work Phone: [facility] 07-08-2022 12:50-0400 Body height 160 cm Tayo Rodriguez MD Work Phone: [facility] 07-08-2022 12:50-0400 Body mass index (BMI) [Ratio] 21.09 kg/m2 Tayo Rodriguez MD Work Phone: [facility] 07-08-2022 12:50-0400 Body temperature 97.11 [degF] Tayo Rodriguez MD Work Phone: [facility] 07-08-2022 12:50-0400 Body weight 54 kg Tayo Rodriguez MD Work Phone: [facility] 07-08-2022 12:50-0400 Diastolic blood pressure 78 mm[Hg] Tayo Rodriguez MD Work Phone: [facility] 07-08-2022 12:50-0400 Heart rate 76 /min Tayo Rodriguez MD Work Phone: [facility] 07-08-2022 12:50-0400 Systolic blood pressure 110 mm[Hg] Tayo Rodriguez MD Work Phone: [facility] 06-29-2022 11:53-0400 Body height 162.6 cm Tayo Rodriguez MD Work Phone: [facility] 06-29-2022 11:53-0400 Body mass index (BMI) [Ratio] 19.74 kg/m2 Tayo Rodriguez MD Work Phone: [facility] 06-29-2022 11:53-0400 Body temperature 97.9 [degF] Tayo Rodriguez MD Work Phone: [facility] 06-29-2022 11:53-0400 Body weight 52.16 kg Tayo Rodriguez MD Work Phone: [facility] 06-29-2022 11:53-0400 Diastolic blood pressure 78 mm[Hg] Tayo Rodriguez MD Work Phone: [facility] 06-29-2022 11:53-0400 Heart rate 76 /min Tayo Rodriguez MD Work Phone: [facility] 06-29-2022 11:53-0400 Systolic blood pressure 110 mm[Hg] Tayo Rodriguez MD Work Phone: [facility] 06-21-2022 15:55-0500 Body height 160 cm Tayo Rodriguez MD Work Phone: [facility] 06-21-2022 15:55-0500 Body mass index (BMI) [Ratio] 21.26 kg/m2 Tayo Rodriguez MD Work Phone: [facility] 06-21-2022 15:55-0500 Body temperature 97.11 [degF] Tayo Rodriguez MD Work Phone: [facility] 06-21-2022 15:55-0500 Body weight 54.43 kg Tayo Rodriguez MD Work Phone: [facility] 06-21-2022 15:55-0500 Diastolic blood pressure 64 mm[Hg] Tayo Rodriguez MD Work Phone: [facility] 06-21-2022 15:55-0500 Heart rate 52 /min Tayo Rodriguez MD Work Phone: [facility] 06-21-2022 15:55-0500 SaO2% (BldA) [Mass fraction] 96 % Tayo Rodriguez MD Work Phone: [facility] 06-21-2022 15:55-0500 Systolic blood pressure 120 mm[Hg] Tayo Rodriguez MD Work Phone: [facility] 06-19-2022 09:59-0500 Body temperature 97.5 [degF] Madison Medina INDUSTRIAL MAINTENANCE MECHANIC.JEWELRY SALES ASSOCIATE Work Phone: [facility] 06-19-2022 09:59-0500 Body weight 53.98 kg Madison Medina INDUSTRIAL MAINTENANCE MECHANIC.JEWELRY SALES ASSOCIATE Work Phone: [facility] 06-19-2022 09:59-0500 Diastolic blood pressure 62 mm[Hg] Madison Medina INDUSTRIAL MAINTENANCE MECHANIC.JEWELRY SALES ASSOCIATE Work Phone: [facility] 06-19-2022 09:59-0500 Heart rate 86 /min Madison Medina INDUSTRIAL MAINTENANCE MECHANIC.JEWELRY SALES ASSOCIATE Work Phone: [facility] 06-19-2022 09:59-0500 Respiratory rate 16 /min Madison Medina INDUSTRIAL MAINTENANCE MECHANIC.JEWELRY SALES ASSOCIATE Work Phone: [facility] 06-19-2022 09:59-0500 SaO2% (BldA) [Mass fraction] 98 % Madison Medina INDUSTRIAL MAINTENANCE MECHANIC.JEWELRY SALES ASSOCIATE Work Phone: [facility] 06-19-2022 09:59-0500 Systolic blood pressure 92 mm[Hg] Madison Medina INDUSTRIAL MAINTENANCE MECHANIC.JEWELRY SALES ASSOCIATE Work Phone: [facility] 06-17-2022 16:51-0500 Body height 160.02 cm [facility] 06-17-2022 16:51-0500 Body mass index (BMI) [Ratio] 20.9 kg/m2 [facility] 06-17-2022 16:51-0500 Body temperature 98 [degF] [facility] 06-17-2022 16:51-0500 Body weight 53.52 kg [facility] 06-17-2022 16:51-0500 Diastolic blood pressure 76 mm[Hg] [facility] 06-17-2022 16:51-0500 Heart rate 85 /min [facility] 06-17-2022 16:51-0500 Respiratory rate 16 /min [facility] 06-17-2022 16:51-0500 SaO2% (BldA) [Mass fraction] 97 % [facility] 06-17-2022 16:51-0500 Systolic blood pressure 99 mm[Hg] [facility] 06-01-2022 11:49-0500 Diastolic blood pressure 59 mm[Hg] Alan Rene MD Work Phone: [facility] 06-01-2022 11:49-0500 Heart rate 78 /min Alan Rene MD Work Phone: [facility] 06-01-2022 11:49-0500 Respiratory rate 20 /min Alan Rene MD Work Phone: [facility] 06-01-2022 11:49-0500 Systolic blood pressure 97 mm[Hg] Alan Rene MD Work Phone: [facility] 02-17-2022 10:10-0400 Body temperature 98.91 [degF] Moris Bernstein INDUSTRIAL MAINTENANCE MECHANIC.JEWELRY SALES ASSOCIATE Work Phone: [facility] 02-17-2022 10:10-0400 Body weight 53.07 kg Moris Amandeep INDUSTRIAL MAINTENANCE MECHANIC.JEWELRY SALES ASSOCIATE Work Phone: [facility] 02-17-2022 10:10-0400 Diastolic blood pressure 60 mm[Hg] Moris Amandeep INDUSTRIAL MAINTENANCE MECHANIC.JEWELRY SALES ASSOCIATE Work Phone: [facility] 02-17-2022 10:10-0400 Heart rate 74 /min Moris Amandeep INDUSTRIAL MAINTENANCE MECHANIC.JEWELRY SALES ASSOCIATE Work Phone: [facility] 02-17-2022 10:10-0400 Respiratory rate 16 /min Moris Amandeep INDUSTRIAL MAINTENANCE MECHANIC.JEWELRY SALES ASSOCIATE Work Phone: [facility] 02-17-2022 10:10-0400 SaO2% (BldA) [Mass fraction] 99 % Moris Amandeep INDUSTRIAL MAINTENANCE MECHANIC.JEWELRY SALES ASSOCIATE Work Phone: [facility] 02-17-2022 10:10-0400 Systolic blood pressure 100 mm[Hg] Moris Amandeep INDUSTRIAL MAINTENANCE MECHANIC.JEWELRY SALES ASSOCIATE Work Phone: [facility] 01-21-2022 10:37-0400 Body temperature 97.81 [degF] Madison Glennie INDUSTRIAL MAINTENANCE MECHANIC.JEWELRY SALES ASSOCIATE Work Phone: [facility] 01-21-2022 10:37-0400 Body weight 51.26 kg Madison Katharinannie INDUSTRIAL MAINTENANCE MECHANIC.JEWELRY SALES ASSOCIATE Work Phone: [facility] 01-21-2022 10:37-0400 Diastolic blood pressure 75 mm[Hg] Madison Glennie INDUSTRIAL MAINTENANCE MECHANIC.JEWELRY SALES ASSOCIATE Work Phone: [facility] 01-21-2022 10:37-0400 Heart rate 80 /min Madison Glennie INDUSTRIAL MAINTENANCE MECHANIC.JEWELRY SALES ASSOCIATE Work Phone: [facility] 01-21-2022 10:37-0400 Respiratory rate 24 /min Madison Glennie INDUSTRIAL MAINTENANCE MECHANIC.JEWELRY SALES ASSOCIATE Work Phone: [facility] 01-21-2022 10:37-0400 SaO2% (BldA) [Mass fraction] 99 % Madison Glennie INDUSTRIAL MAINTENANCE MECHANIC.JEWELRY SALES ASSOCIATE Work Phone: [facility] 01-21-2022 10:37-0400 Systolic blood pressure 111 mm[Hg] Madison Weller JEWELRY SALES ASSOCIATE Work Phone: [facility] 12-30-2021 10:22-0400 Body height 161 cm Candie Duron MD Work Phone: [facility] 12-30-2021 10:22-0400 Body weight 52.89 kg Candie Duron MD Work Phone: [facility] 12-30-2021 10:22-0400 Diastolic blood pressure 60 mm[Hg] Candie Duron MD Work Phone: [facility] 12-30-2021 10:22-0400 Systolic blood pressure 100 mm[Hg] Candie Duron MD Work Phone: [facility] 10-12-2021 10:50-0400 Body height 162.6 cm Alan Rene MD Work Phone: [facility] 10-12-2021 10:50-0400 Body temperature 98.1 [degF] Alan Rene MD Work Phone: [facility] 10-12-2021 10:50-0400 Body weight 51.26 kg Alan Rene MD Work Phone: [facility] 10-12-2021 10:50-0400 Diastolic blood pressure 73 mm[Hg] Alan Rene MD Work Phone: [facility] 10-12-2021 10:50-0400 Heart rate 71 /min Alan Rene MD Work Phone: [facility] 10-12-2021 10:50-0400 Respiratory rate 20 /min Alan Rene MD Work Phone: [facility] 10-12-2021 10:50-0400 SaO2% (BldA) [Mass fraction] 100 % Alan Rene MD Work Phone: [facility] 10-12-2021 10:50-0400 Systolic blood pressure 97 mm[Hg] Alan Rene MD Work Phone: [facility] 12-11-2020 09:39-0400 Body height 162.56 cm Tayo Taliwal Work Phone: [employer] [facility] [employer] Work Phone: 12-11-2020 09:39-0400 Body mass index (BMI) [Ratio] 19.74 kg/m2 Tayo Taliwal Work Phone: [employer] [facility] [employer] Work Phone: 12-11-2020 09:39-0400 Body surface area Derived from formula 1.55 m2 Tayo [employer] Work Phone: [employer] [facility] [employer] Work Phone: 12-11-2020 09:39-0400 Body temperature 97.5 [degF] Tayo Taliwal Work Phone: [employer] [facility] [employer] Work Phone: 12-11-2020 09:39-0400 Body weight 52.16 kg Tayo Taliwal Work Phone: [employer] [facility] [employer] Work Phone: 12-11-2020 09:39-0400 Diastolic blood pressure 62 mm[Hg] Tayo Taliwal Work Phone: [employer] [facility] [employer] Work Phone: 12-11-2020 09:39-0400 Heart rate 64 /min Tayo [facility]aliwal Work Phone: [facility] Work Phone: 12-11-2020 09:39-0400 Systolic blood pressure 104 mm[Hg] Tayo [facility]aliwal Work Phone: [facility] Work Phone: NEGATED: Highlighted [id number] 12:54-0400 BMI (Body Mass Index) 19.81 kg/m2 Desire Miki DRUG ABUSE TECHNICIAN [facility] [place] Work Phone: NEGATED: Highlighted [id number] 12:54-0400 Body Temperature 98.2 [degF] Desire Miki DRUG ABUSE TECHNICIAN [facility] [place] Work Phone: NEGATED: Highlighted [id number] 12:54-0400 Body Temperature 98.24 [degF] Desire Miki DRUG ABUSE TECHNICIAN [facility] [place] [place] Work Phone: NEGATED: Highlighted [id number] 12:54-0400 Body weight 52.16 kg Desire Miki DRUG ABUSE TECHNICIAN [facility] [place] Work Phone: NEGATED: Highlighted [id number] 12:54-0400 Body weight 52 kg Desire Miki DRUG ABUSE TECHNICIAN [facility] [place] Work Phone: NEGATED: Highlighted [id number] 12:54-0400 Height 162.56 cm Desire Miki DRUG ABUSE TECHNICIAN [facility] [place] Work Phone: NEGATED: Highlighted [id number] 12:54-0400 Height 163 cm Desire Miki DRUG ABUSE TECHNICIAN [facility] [place] Work Phone: Encounters Encounter Date Encounter Type Care Provider Facility Start: 02-20-2025 End: 02-20-2025 ambulatory TAYO TALIWAL Facility:[facility] Start: 02-20-2025 End: 02-20-2025 Emergency department patient visit Paulgui Cruz Facility:[facility] Start: 02-11-2025 End: 02-11-2025 ambulatory PAUL Cookie NOEL [facility] Start: 02-11-2025 End: 02-11-2025 Telemedicine consultation with patient Paul Noel [facility] Work Phone: [facility] Comment on above: Psoriasis Start: 01-29-2025 End: 01-29-2025 ambulatory TAYO TALIWAL Facility:[facility] Start: 01-24-2025 ambulatory [facility] Facility: [facility] Start: 01-23-2025 End: 01-23-2025 Office outpatient visit 25 minutes Tayo Rodriguez MD Work Phone: [facility] Comment on above: Left lateral abdomin al pain (Primary Dx); Nausea; Diarrhea of presumed infectious origin; Left lower quadrant abdominal tenderness with rebound tenderness; Other iron deficiency anemia Start: 01-23-2025 End: 01-23-2025 [facility] Start: 01-22-2025 End: 01-22-2025 ambulatory [facility] Facility:[facility] Start: 01-21-2025 End: 01-21-2025 ambulatory [facility] Facility:[facility] Start: 01-16-2025 End: 01-16-2025 ambulatory [facility] Facility:[facility] Start: 01-01-2025 End: 01-01-2025 ambulatory [facility] Facility:[facility] Start: 12-20-2024 End: 12-20-2024 Emergency department patient visit [facility] Facility:[facility] Start: 12-20-2024 End: 12-20-2024 Patient encounter procedure Tayo Rodriguez MD Work Phone: [facility] Work Phone: Start: 12-20-2024 End: 12-20-2024 Periodic preventive med est patient 40-64yrs Tayo Rodriguez MD Work Phone: [facility] [employer] [facility] Comment on above: Encounter for annual general medical examination without abnormal findings in adult (Primary Dx); Vitamin D deficiency; Vitamin B 12 deficiency; Anxiety; Screening for diabetes mellitus; Hyperglycemia; MCTD (mixed connective tissue disease) (Multi); Hypercoagulable state, secondary (Multi); Psoriasis; ILD (interstitial lung disease) (Multi); Wheezing Start: 12-20-2024 End: 12-20-2024 ambulatory [facility] Start: 12-20-2024 End: 12-20-2024 Encounter for general adult medical examination without abnormal findings [facility] Start: 11-19-2024 End: 11-19-2024 ambulatory Treatment Rm 15 Shin [facility] Work Phone: Hematology/Oncology Comment on above: Osteoporosis without current pathological fracture, unspecified osteoporosis type (Primary Dx) Start: 11-18-2024 End: 11-19-2024 ambulatory Lora Rodrigues MD Work Phone: [facility] General Endocrinology, Diabetes, and Metabolism Start: 11-18-2024 End: 11-19-2024 Patient encounter procedure Lora Rodrigues MD Work Phone: [facility] General Endocrinology, Diabetes, and Metabolism Comment on above: Reclast Start: 11-12-2024 End: 11-12-2024 Orders Only Lora Rodrigues MD Work Phone: [facility] General Endocrinology, Diabetes, and Metabolism Start: 10-31-2024 End: 10-31-2024 ambulatory CARMELLA CABRERA Facility:[facility] Start: 10-31-2024 Encounter for gynecological examination (general) (routine) without abnormal findings CARMELLA CABRERA [facility] Start: 10-31-2024 End: 10-31-2024 Patient encounter procedure Carmella Cabrera APRN.JEWELRY SALES ASSOCIATE Work Phone: OB/Gynecology Comment on above: Encounter for gyneco logical examination (general) (routine) without abnormal findings (Primary Dx); Encounter for screening mammogram for breast cancer Start: 10-31-2024 End: 10-31-2024 Patient encounter status Carmella Cabrera APRN.JEWELRY SALES ASSOCIATE Work Phone: [facility] Work Phone: Start: 10-05-2024 End: 12-05-2024 Follow-up encounter Beatrice Miguel MD Work Phone: Pulmonary Medicine Start: 10-04-2024 End: 10-04-2024 ambulatory [facility] Facility:[facility] Start: 10-02-2024 End: 10-02-2024 Telephone encounter Lora Rodrigues MD Work Phone: [facility] General Endocrinology, Diabetes, and Metabolism Comment on above: Results; Reclast ord er Start: 10-01-2024 End: 10-01-2024 ambulatory [facility] Facility:[facility] Start: 09-26-2024 End: 09-26-2024 Admission to same day surgery center Lora Rodrigues MD Work Phone: [facility] Endocrinology, Diabetes, and Metabolism Comment on above: Osteoporosis without current pathological fracture, unspecified osteoporosis type (Primary Dx); Vitamin D deficiency; History of parathyroid surgery Start: 09-26-2024 End: 09-26-2024 Telemedicine consultation with patient Lora Rodrigues MD Work Phone: [facility] Endocrinology, Diabetes, and Metabolism Start: 09-26-2024 End: 09-26-2024 ambulatory LORA RODRIGUES Facility:[facility] Start: 09-24-2024 End: 09-24-2024 ambulatory Lora Rodrigues MD Work Phone: [facility] Endocrinology, Diabetes, and Metabolism Start: 09-24-2024 End: 09-24-2024 Patient encounter procedure Lora Rodrigues MD Work Phone: [facility] Endocrinology, Diabetes, and Metabolism Comment on above: Reclast Start: 09-24-2024 End: 09-25-2024 Telephone encounter Zaki Keenan MD Work Phone: Hematology/Oncology Comment on above: Appointment Start: 08-20-2024 End: 08-20-2024 ambulatory [facility] Facility:[facility] Start: 07-30-2024 End: 07-30-2024 ambulatory [facility] Pulmonary Lab Comment on above: Spirometry Start: 07-30-2024 End: 07-30-2024 Patient encounter procedure [facility] Work Phone: Pulmonary Lab Comment on above: Pulmonary arterial h ypertension (HCC) (Primary Dx); Pulmonary hypertension (HCC); Mixed connective tissue disease (HCC) Start: 07-09-2024 End: 07-09-2024 ambulatory [facility] Facility:[facility] Start: 07-05-2024 End: 07-05-2024 Subsequent hospital visit by physician Hector Mcconnell Flu[facility] 1 [facility] Comment on above: Left wrist pain; Left hand pain Start: 07-05-2024 End: 07-05-2024 ambulatory [facility] Start: 06-25-2024 End: 06-25-2024 Subsequent hospital visit by physician Hector Doeo [facility] Comment on above: Abnormal mammogram Start: 06-25-2024 End: 06-25-2024 ambulatory [facility] Start: 06-25-2024 End: 06-25-2024 ambulatory [facility] Start: 06-21-2024 End: 06-21-2024 Subsequent hospital visit by physician Mary Ann Aleman 1 [facility] Comment on above: Encounter for screen ing mammogram for malignant neoplasm of breast Start: 06-21-2024 End: 06-21-2024 ambulatory [facility] Start: 06-21-2024 End: 06-21-[address] [facility] Start: 06-04-2024 End: 06-04-2024 Office outpatient visit 40 minutes Tayo Rodriguez MD Work Phone: [facility] Comment on above: Coated tongue (Prima [...] encounter procedure Tayo Rodriguez MD Work Phone: [facility] Work Phone: Start: 06-04-2024 End: 06-04-2024 ambulatory [facility] Start: 05-14-2024 End: 05-14-20[address] [facility] Start: 03-29-2024 End: 03-29-[address] [facility] Start: 03-29-2024 End: 03-29-2024 Patient encounter procedure Madison Medina INDUSTRIAL MAINTENANCE MECHANIC.JEWELRY SALES ASSOCIATE Work Phone: [facility] Comment on above: Ingrown toenail (Maya katelyn Dx); Pain of right great toe Start: 03-05-2024 End: 03-05-[address] [facility] Comment on above: Spirometry Start: 03-05-2024 End: 03-05-2024 Patient encounter procedure [facility] Work Phone: Pulmonary Lab Comment on above: Need for influenza v accination (Primary Dx); ILD (interstitial lung disease) (HCC) Start: 11-17-2023 End: 11-17-2023 ambulatory [facility] Work Phone: Hematology/Oncology Comment on above: Osteoporosis without current pathological fracture, unspecified osteoporosis type (Primary Dx) Start: 11-17-2023 End: 11-17-2023 Patient encounter procedure Treatment Rm 15 Shin [facility] Work Phone: Hematology/Oncology Start: 11-10-2023 End: 11-10-2023 ambulatory [facility] Work Phone: Hematology/Oncology Comment on above: Osteoporosis without current pathological fracture, unspecified osteoporosis type (Primary Dx) Start: 11-10-2023 End: 11-10-2023 Patient encounter procedure Treatment Rm 15 Shin [facility] Work Phone: Hematology/Oncology Start: 10-21-2023 Telephone encounter Lora green MD Work Phone: [facility] General Endocrinology, Diabetes, and Metabolism Comment on above: Orders (Reclast pt s cheduled) Start: 09-21-2023 End: 06-06-2024 Patient encounter procedure Tayo Rodriguez MD Work Phone: [facility] Work Phone: Start: 09-21-2023 End: 09-21-2023 Periodic preventive med est patient 40-64yrs Tayo Rodriguez MD Work Phone: [facility] Comment on above: Encounter [...] Telephone encounter Lora green MD Work Phone: [facility] Endocrinology, Diabetes, and Metabolism Start: 09-01-2023 Telephone encounter Lora green MD Work Phone: [facility] Endocrinology, Diabetes, and Metabolism Comment on above: Results Start: 08-31-2023 End: 08-31-2023 ambulatory [facility] Work Phone: Pulmonary Lab Comment on above: Spirometry Start: 08-31-2023 End: 08-31-2023 Patient encounter procedure [facility] Work Phone: Pulmonary Lab Comment on above: ILD (interstitial clarke ng disease) (HCC) (Primary Dx) Start: 08-17-2023 Telephone encounter Hattie king MD Work Phone: [facility] Comment on above: Test Scheduling Start: 08-16-2023 End: 08-16-2023 Admission to same day surgery center Lora Rodrigues MD Work Phone: [facility] Endocrinology, Diabetes, and Metabolism Comment on above: Osteoporosis without current pathological fracture, unspecified osteoporosis type (Primary Dx); Vitamin D deficiency; History of parathyroid surgery Start: 08-16-2023 End: 08-16-2023 Telemedicine consultation with patient Lora Rodrigues MD Work Phone: [facility] Endocrinology, Diabetes, and Metabolism Start: 07-29-2023 ambulatory Lora Gary Work Phone: [facility] Endocrinology, Diabetes, and Metabolism Comment on above: Reclast Start: 03-30-2023 End: 03-30-2023 ambulatory [facility] Work Phone: Pulmonary Lab Comment on above: Spirometry Start: 03-30-2023 End: 03-30-2023 Patient encounter procedure [facility] Work Phone: [facility] Comment on above: ILD (interstitial clarke ng disease) (HCC) (Primary Dx) Start: 03-18-2023 End: 03-18-2023 Subsequent hospital visit by physician Xr [facility] Work Phone: Radiology Comment on above: Acute pain of left s houlder [M25.512] Start: 03-18-2023 Telephone encounter Ranjit glass APRN.JEWELRY SALES ASSOCIATE Work Phone: [facility] Comment on above: Results Start: 02-22-2023 Telephone encounter Lora green MD Work Phone: [facility] Endocrinology, Diabetes, and Metabolism Comment on above: Results Start: 02-22-2023 End: 02-22-2023 ambulatory Cat Gil [employer] WORK[employer] Work Phone: [facility] Speech Therapy Comment on above: Dysphagia, unspecifi ed type (Primary Dx) Start: 02-22-2023 End: 02-22-2023 Subsequent hospital visit by physician Gi/Gu 1 [facility] ([facility] Comment on above: Gastro-esophageal re flux disease without esophagitis [K21.9] Start: 02-21-2023 End: 02-21-2023 Subsequent hospital visit by physician Gi/Gu 1 [facility] ([facility] Comment on above: Cough, unspecified [ R05.9] Start: 01-20-2023 Transcribe Orders Hattie vallecillo MD Work Phone: [facility] [employer] Comment on above: Gastro-esophageal re flux disease without esophagitis (Primary Dx); Other primary thrombophilia (HCC); terminal carman (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 of anticoagulants Start: 01-07-2023 End: 01-07-2023 Subsequent hospital visit by physician Ct [facility] ([facility]) Work Phone: Cat Scan Comment on above: JI8.9 PNEUMONITIS Start: 12-23-2022 ambulatory Dr. Tayo Wolf [id number] Start: 12-23-2022 End: 12-23-2022 Office outpatient visit 25 minutes Tayo Rodriguez MD Work Phone: [facility] Comment on above: Wheezing (Primary Dx ); SOB (shortness of breath); Abnormal chest x-ray; Pneumonitis; Bronchiectasis with acute exacerbation (CMS/HCC); Cough, unspecified type Start: 12-16-2022 End: 12-16-2022 Admission to same day surgery center Lora Rodrigues MD Work Phone: [facility] Endocrinology, Diabetes, and Metabolism Comment on above: Osteoporosis without current pathological fracture, unspecified osteoporosis type (Primary Dx); Vitamin D deficiency; History of parathyroid surgery Start: 12-16-2022 End: 12-16-2022 Telemedicine consultation with patient Lora Rodrigues MD Work Phone: [facility] Start: 12-13-2022 End: 12-13-2022 ambulatory [facility] Work Phone: Pulmonary Lab Comment on above: Spirometry Start: 12-13-2022 End: 12-13-2022 Patient encounter procedure [facility] Work Phone: [facility] Comment on above: ILD (interstitial clarke ng disease) (HCC) (Primary Dx) Start: 11-11-2022 Orders Only Alan tinoco MD Work Phone: Pulmonary Medicine Comment on above: ILD (interstitial clarke ng disease) (HCC) (Primary Dx) Start: 10-28-2022 End: 10-28-2022 Office outpatient visit 25 minutes Tayo Rodriguez MD Work Phone: [facility] Comment on above: Sinus congestion (Pr imary Dx); Fever, unspecified fever cause; Hyperparathyroidism (CMS/HCC) Start: 10-21-2022 Telephone encounter Alan Rene MD Work Phone: Pulmonary Medicine Comment on above: Patient Question ILD (interstitial clarke ng disease) (HCC) (Primary Dx) Start: 09-21-2022 Patient encounter procedure [facility] Provider [facility] Department Start: 08-25-2022 End: 08-25-2022 ambulatory Treatment Rm 6 Shin [facility] Work Phone: Hematology/Oncology Comment on above: Osteoporosis without current pathological fracture, unspecified osteoporosis type (Primary Dx) Start: 08-12-2022 End: 08-12-2022 Patient encounter status Gale Goodrich KELVIN Work Phone: Gynecology Start: 08-12-2022 End: 08-12-2022 Patient encounter procedure Joslyn Carrion MD Work Phone: [facility] Comment on above: POI versus perimenop ause [...] m caregiver Joslyn Carrion MD Work Phone: [facility] Start: 08-10-2022 FQ visit new patient Joslyn ring MD Work Phone: [facility] Comment on above: new patient appt Start: 07-26-2022 End: 07-26-2022 Telemedicine consultation with patient Matthew Ureña PharmD Work Phone: [facility] Comment on above: Osteoporosis without current pathological fracture, unspecified osteoporosis type Start: 07-09-2022 Telephone encounter Financial Navigator Shin Work Phone: Financial Services Comment on above: Benefits Investigati on Start: 07-08-2022 End: 07-08-2022 Office outpatient visit 25 minutes Tayo Rodriguez MD Work Phone: [facility] Comment on above: Secondary hypercoagu lable state (CMS/HCC) (Primary Dx); Infection of parotid gland; Lymphadenopathy of head and neck; ILD (interstitial lung disease) (CMS/HCC); Blood clotting disorder (CMS/HCC); Protein S deficiency (CMS/HCC); MCTD (mixed connective tissue disease) (CMS/HCC); Rash Start: 06-30-2022 Telephone encounter Lora green MD Work Phone: [facility] General Endocrinology, Diabetes, and Metabolism Comment on above: Insurance Authorizat ion (Authorization for ZOLEDRONIC ACID 5 MG/100 ML) Start: 06-29-2022 End: 06-29-2022 Office outpatient visit 25 minutes Tayo Rodriguez MD Work Phone: [facility] Comment on above: Tongue coating (Prim julio Dx); Pharyngitis, unspecified etiology; Lymphadenopathy of head and neck; Rash Start: 06-23-[address] Tayo Rodriguez [facility] [id number] Start: 06-22-2022 End: 06-22-2022 Patient encounter procedure Joslyn Carrion MD Work Phone: [facility] Comment on above: NS same day pt cx (P rimary Dx); Hormone replacement therapy (HRT); Encounter for screening mammogram for malignant neoplasm of breast; Premature ovarian failure; Blood clotting disorder (HCC); Osteoporosis, unspecified osteoporosis type, unspecified pathological fracture presence Start: 06-21-2022 End: 06-21-2022 Office outpatient visit 25 minutes Tayo Rodriguez MD Work Phone: [facility] Comment on above: Lymphadenopathy of h ead and neck (Primary Dx); Rash Start: 06-19-2022 End: 06-19-2022 Patient encounter procedure Madison Sage FRAZIER.JEWELRY SALES ASSOCIATE Work Phone: [facility] Comment on above: Jaw pain (Primary Dx ) Start: 06-18-2022 Telephone encounter Lora green MD Work Phone: Endocrinology & Metabolic [place] Comment on above: Appointment Start: 06-17-2022 End: 06-17-2022 Emergency department patient visit [facility] Start: 06-17-2022 Telephone encounter Lora green MD Work Phone: [facility] Endocrinology, Diabetes, and Metabolism Comment on above: Results Start: 06-17-2022 End: 06-17-2022 Patient encounter procedure Schuyler Jimenez PA Work Phone: [facility] Comment on above: Neck pain (Primary D x) Start: 06-16-2022 E-mail encounter fro m caregiver Joslyn Carrion MD Work Phone: [facility] Start: 06-16-2022 Patient encounter procedure Joslyn Carrion MD Work Phone: [facility] Comment on above: Appointment Start: 06-15-2022 Rx Renewal Tayo Rodriguez Work Phone: [facility] Work Phone: Start: 06-01-2022 End: 06-01-2022 ambulatory [facility] Work Phone: Pulmonary Lab Comment on above: Spirometry Start: 06-01-2022 End: 06-01-2022 Patient encounter procedure [facility]m [facility] Work Phone: [facility] Comment on above: ILD (interstitial clarke ng disease) (HCC) (Primary Dx) Start: 05-31-2022 End: 05-31-2022 Subsequent hospital visit by physician Bone Density [facility] Work Phone: Radiology Comment on above: Encounter for screen ing for osteoporosis [Z13.820] Start: 05-24-2022 Telephone encounter Candie nicholson MD Work Phone: OB/Gynecology Comment on above: Orders Start: 05-10-2022 Office outpatient vi sit 25 minutes Tayo Rodriguez Work Phone: [facility] Work Phone: Start: 05-10-[address] Tayo Rodriguez Facil [id number] Start: 03-17-2022 Rx Renewal Tayo Rodriguez Work Phone: [facility] Work Phone: Start: 02-17-2022 Telephone encounter Moris doherty APRN.JEWELRY SALES ASSOCIATE Work Phone: [facility] Comment on above: Results Start: 02-17-2022 End: 02-17-2022 Patient encounter procedure Moris Bernstein APRN.JEWELRY SALES ASSOCIATE Work Phone: [facility] Comment on above: Contusion of left lo wer leg, initial encounter (Primary Dx); History of blood clots Start: 02-15-2022 ambulatory Candie Gray Work Phone: OB/Gynecology Comment on above: Menopause specialist Start: 02-12-2022 Orders Only Alan tinoco MD Work Phone: Pulmonary Medicine Comment on above: ILD (interstitial clarke ng disease) (HCC) (Primary Dx) Start: 01-21-2022 End: 01-21-2022 Patient encounter procedure Madison Weller APRN.JEWELRY SALES ASSOCIATE Work Phone: Pulmonary Medicine Comment on above: ILD (interstitial clarke ng disease) (HCC) (Primary Dx); MCTD (mixed connective tissue disease) (HCC); Systemic lupus erythematosus with lung involvement, unspecified SLE type (HCC); Encounter for prophylactic measures, unspecified Start: 01-18-2022 End: 01-18-2022 Subsequent hospital visit by physician [facility] ([facility]) Work Phone: Cat Scan [...] with patient Alan Rene MD Work Phone: [facility] 2 Start: 12-14-2021 End: 12-14-2021 ambulatory Pulm [place] [address] Work Phone: Pulmonary Lab Comment on above: Spirometry Start: 12-14-2021 End: 12-14-2021 Patient encounter procedure Pulm Lab [place] [address] Work Phone: [facility] 2 Start: 11-03-2021 AUDIT Tayo Rodriguez Work Phone: [facility] Work Phone: Start: 10-12-2021 End: 10-12-2021 Patient encounter procedure Alan Rene MD Work Phone: Pulmonary Medicine Comment on above: ILD (interstitial clarke ng disease) (HCC) (Primary Dx); Abnormal PFTs Start: 10-12-2021 End: 10-12-2021 ambulatory [facility] Start: 08-10-2021 Refill Alan tinoco MD Work Phone: Pulmonary Medicine Comment on above: Refill Request Start: 08-10-2021 Telephone encounter Alan Rene MD Work Phone: Pulmonary Medicine Comment on above: Medication Problem Start: 07-31-[address] Tayo Rodriguez [facility] [id number] Start: 07-31-2021 Office outpatient vi sit 15 minutes Tayo Aroraiwal Work Phone: [facility] Work Phone: Start: 07-31-2021 Patient encounter procedure Tayo Taliwal Work Phone: [facility] Work Phone: Start: 07-23-2021 AUDIT Tayo Aroraiwal Work Phone: [facility] Work Phone: Start: 07-21-2021 AUDIT Tayo Aroraiwal Work Phone: [facility] Work Phone: Start: 05-13-2021 Chart Update Tayo Taliwal Work Phone: [facility] Work Phone: Start: 04-24-2021 AUDIT Tayokarrie Aroraiwal Work Phone: [facility] Work Phone: Start: 04-20-2021 AUDIT Tayo Taliwal Work Phone: [facility] Work Phone: Start: 04-16-2021 AUDIT Tayo Taliwal Work Phone: [facility] Work Phone: Start: 02-12-2021 AUDIT Tayo Taliwal Work Phone: [facility] Work Phone: Start: 01-06-2021 AUDIT Tayo Rodriguez Work Phone: [facility] Work Phone: Start: 12-11-2020 Office outpatient ne w 45 minutes Tyao Rodriguez Work Phone: [facility] Work Phone: Start: 12-11-2020 Patient encounter procedure Tayo Rodriguez Work Phone: -[facility] Work Phone: Start: 08-29-2019 End: 08-29-2019 Patient encounter procedure Katelyn Burroughs PA-C Work Phone: [facility] Work Phone: Start: 04-16-2019 End: 04-17-2019 [address] procedure [facility] Procedures Date Procedure Procedure Detail Performing Clinician Start: 02-20-2025 Follow-up visit Follow Up DAYANARA FRYE Start: 12-20-2024 Antibody screen CHACHA JOSE Comment on above: Order Comment: Speci men Type: BLOOD SPECIMEN Ordering Facility: [facility] Address: [address] [place] [address] Performed By: #### 5 [id number], HCG #### [facility] CLIA [id number] [address] [place] [address] [place] Start: 07-30-2024 Spmtry w/vc expirato ry shala w/wo mxml vol vntj Alan Rene MD Work Phone: Start: 06-25-2024 Mammography [facility] 1 Start: 06-21-2024 Mammography [facility] Start: 06-04-2024 Fungus identified in Unspecified specimen by Culture Tayo Rodriguez MD Work Phone: Start: 03-05-2024 Co diffusing capacity A sheridan Rene MD Work Phone: Start: 09-21-2023 Culture fngi mold/ye ast prsmptv oth xcpt blood Tayo Rodriguez MD Work Phone: Start: 08-31-2023 Co diffusing capacity A sheridan Rene MD Work Phone: Start: 03-30-2023 Spmtry w/vc expirato ry shala w/wo mxml vol vntj Alan Rene MD Work Phone: Start: 03-18-2023 Radex scapula complete Rajnit Slaughtershira INDUSTRIAL MAINTENANCE MECHANIC.JEWELRY SALES ASSOCIATE Work Phone: Start: 02-22-2023 Radiologic exam swal [...] 02-17-2022 Dup-scan xtr veins unilateral/limited study Moris King YOBANYJEWELRY SALES ASSOCIATE Work Phone: Start: 01-18-2022 Ct thorax w/o [...] Start: 08-29-2019 End: 08-29-2019 Tobacco non-user Katelyn Shay Heike MARIA Work Phone: H/O: surgery History of parathyroid surgery Lora Rodrigues MD Work Phone: H/O: surgery History of parathyroid surgery Lora Rodrigues MD Work Phone: H/O: surgery History of parathyroid surgery Lora Rodrigues MD Work Phone: NEGATED: Highlighted rowStart: 08-29-2019 End: 08-29-2019 Documentation of current medications Desire Miki DRUG ABUSE TECHNICIAN Plan of Treatment Date Care Activity Detail Author Start: 2040 RSV Immunization aged 60 or older (1 - 1-dose 60+ series) RSV Immunization aged 60 or older (1 - 1-dose 60+ series) [facility] Start: 08-13-2027 HPV TESTING HPV TESTING [facility] Start: 08-13-2027 PAP TESTING PAP TESTING [facility] Start: 08-13-2027 Screening for malignant neoplasm of cervix [facility] Start: 07-05-2026 DTaP/Tdap/Td Vaccines (3 - Td or Tdap) DTaP/Tdap/Td Vaccines (3 - Td or Tdap) [facility] Start: 07-05-2026 Urine microalbumin profile [facility] Start: 12-21-2025 Yearly Adult Physical Yearly Adult Physical [facility] Start: 10-31-2025 End: 10-31-2025 Patient encounter procedure 10/31/2025 2:00 PM EDT Office Visit OB/Gynecology [address] [place] [address] Carmella Cabrera APRN.JEWELRY SALES ASSOCIATE [address] [place] [address] Annual OB/Gynecology Comment on above: Annual Start: 08-12-2025 Screening for malignant neoplasm of cervix [facility] Start: 07-22-2025 End: 07-22-2025 Patient encounter procedure 07/22/2025 1:10 PM EDT Appointment Mammogram [address] [place] [address] : Encounter for gynecological examination (general) (routine) without abnormal findings [Z01.419]; Encounter for screening mammogram for breast cancer [Z12.31] Mammogram Comment on above: : Encounter for gynecological examinatio n (general) (routine) without abnormal findings [Z01.419]; Encounter for screening mammogram for breast cancer [Z12.31] Start: 06-25-2025 Screening for malignant neoplasm of breast [facility] Start: 06-21-2025 Screening for malignant neoplasm of breast Mammogram [facility] Start: 2025 COLORECTAL CANCER SCREENING COLORECTAL CANCER SCREENING [facility] Start: 2025 FECAL OCCULT BLOOD FECAL OCCULT BLOOD [facility] Start: 04-01-2025 End: 04-01-2025 Patient encounter procedure 04/01/2025 2:40 PM EST Office Visit Pulmonary Medicine [address] [facility] [address] [place], [place] [phone] Alan Rene MD [address] [place], [place] [id number] 6 month follow up Pulmonary Medicine Comment on above: 6 month follow up Start: 03-28-2025 End: 03-28-2025 Patient encounter procedure 03/28/2025 2:40 PM EST Office Visit [facility] [address] [place] [phone] Tayo Rodriguez MD [address] [place], [place] [phone] [facility] Start: 02-11-2025 End: 02-11-2025 Telemedicine consultation with patient 02/11/2025 3:00 PM EDT Telemedicine [facility] [address] [place] [phone] Paul Noel, [facility] [address] [facility] [address] [place] [address] [facility] Start: 01-29-2025 End: 01-29-2025 ambulatory Pulmonary Lab Comment on above: Pulmonary arterial hypertension (HCC) [I 27.21] Start: 01-28-2025 End: 01-28-2025 Patient encounter procedure 01/28/2025 1:40 PM EDT Appointment Radiology [address] [place] [phone] [facility]IAL [facility] Radiology Comment on above: DXA-AXIAL [facility] Start: 01-23-2025 End: 01-23-2026 CT Abdomen WO contrast CT abdomen pelvis wo IV contrast Imaging STAT Left lateral abdominal pain Nausea Diarrhea of presumed infectious origin Left lower quadrant abdominal tenderness with rebound tenderness Other iron deficiency anemia Expected: 01/23/2025, Expires: 01/23/2026 [facility] [[email or web address] Service Area Work Phone: Comment on above: Expected: 01/23/2025, Expires: Start: 12-20-2024 End: 12-20-2025 25-hydroxyvitamin D3 [Mass/volume] in Serum or Plasma Vitamin D 25-Hydroxy,Total (for eval of Vitamin D levels) Lab Routine Vitamin D deficiency Expected: 12/20/2024 (Approximate), Expires: 12/20/2025 [facility] Work Phone: Comment on above: Expected: 12/20/2024 (Approximate), Expi res: 12/20/2025 Start: 12-20-2024 End: 12-20-2025 CBC W Auto Differential panel - Blood CBC and Auto Differential Lab Routine Encounter for annual general medical examination without abnormal findings in adult Expected: 12/20/2024 (Approximate), Expires: 12/20/2025 [facility] Work Phone: Comment on above: Expected: 12/20/2024 (Approximate), Expi res: 12/20/2025 Start: 12-20-2024 End: 12-20-2025 Cobalamin (Vitamin B12) [Mass/volume] in Serum or Plasma Vitamin B12 Lab Routine Vitamin B 12 deficiency Expected: 12/20/2024 (Approximate), Expires: 12/20/2025 [facility] Work Phone: Comment on above: Expected: 12/20/2024 (Approximate), Expi res: 12/20/2025 Start: 12-20-2024 End: 12-20-2025 Comprehensive metabolic 2000 panel - Serum or Plasma Comprehensive Metabolic Panel Lab Routine Encounter for annual general medical examination without abnormal findings in adult Expected: 12/20/2024 (Approximate), Expires: 12/20/2025 [facility] Work Phone: Comment on above: Expected: 12/20/2024 (Approximate), Expi res: 12/20/2025 Start: 12-20-2024 End: 12-20-2025 Hemoglobin A1c/Hemoglobin.total in Blood Hemoglobin A1C Lab Routine Encounter for annual general medical examination without abnormal findings in adult Screening for diabetes mellitus Hyperglycemia Expected: 12/20/2024 (Approximate), Expires: 12/20/2025 [facility] Work Phone: Comment on above: Expected: 12/20/2024 (Approximate), Expi res: 12/20/2025 Start: 12-20-2024 End: 12-20-2025 Lipid 1996 panel - Serum or Plasma Lipid Panel Lab Routine Encounter for annual general medical examination without abnormal findings in adult Expected: 12/20/2024 (Approximate), Expires: 12/20/2025 [facility] [[email or web address]] Service Area Work Phone: Comment on above: Expected: 12/20/2024 (Approximate), Expi res: 12/20/2025 Start: 12-20-2024 End: 12-20-2025 TSH with reflex to Free T4 if abnormal TSH with reflex to Free T4 if abnormal Lab Routine Encounter for annual general medical examination without abnormal findings in adult Vitamin D deficiency Vitamin B 12 deficiency Expected: 12/20/2024 (Approximate), Expires: 12/20/2025 [facility] Work Phone: Comment on above: Expected: 12/20/2024 (Approximate), Expi res: 12/20/2025 Start: 12-17-2024 COVID-19 Vaccine ( - season) COVID-19 Vaccine ( - season) [facility] Start: 12-17-2024 COVID-19 Vaccine (7 - Moderna risk season) COVID-19 Vaccine (7 - Moderna risk season) [facility] Start: 12-17-2024 Influenza vaccination Influenza Vaccine (#1) [facility] Start: 11-19-2024 End: 11-19-2024 Infusion Center 11/19/2024 9:30 AM EDT Infusion Center Hematology/Oncology [address] [place] [address] START COLLIN/DR RODRIGUES ORDERING* Hematology/Oncology Comment on above: START COLLIN/DR RODRIGUES ORDERING* Start: 11-16-2024 Influenza vaccination Influenza Vaccine (#1) [facility] Start: 10-04-2024 End: 10-04-2024 Patient encounter procedure 10/04/2024 8:50 AM EDT Office Visit Cardiology [address] [place] [address] Disease / Condition: Cardiology Comment on above: Disease / Condition: Start: 10-03-2024 End: 10-03-2024 Patient encounter procedure [facility] Comment on above: START RAISAT/DR RODRIGUES ORDERING* Start: 09-26-2024 End: 12-26-2024 25-hydroxyvitamin D3 [Mass/volume] in Serum or Plasma VITAMIN D 25 HYDROXY Lab Routine Vitamin D deficiency Expected: 09/26/2024, Expires: 12/26/2024 [facility] Comment on above: Expected: 09/26/2024, Expires: Start: 09-26-2024 End: 12-26-2024 Basic metabolic 2000 panel - Serum or Plasma BASIC METABOLIC PANEL Lab Routine Vitamin D deficiency Expected: 09/26/2024, Expires: 12/26/2024 [facility] Comment on above: Expected: 09/26/2024, Expires: Start: 09-26-2024 End: 12-26-2024 Parathyrin.intact [Mass/volume] in Serum or Plasma PTH INTACT Lab Routine Osteoporosis without current pathological fracture, unspecified osteoporosis type Expected: 09/26/2024, Expires: 12/26/2024 [facility] Work Phone: Comment on above: Expected: 09/26/2024, Expires: Start: 09-26-2024 End: 09-26-2024 Patient encounter procedure 09/26/2024 10:00 AM EDT [facility] General Endocrinology, Diabetes, and Metabolism [address] [place], [place] [phone] Lora Rodrigues MD [address] [place] [address] osteoporosis [facility] General Endocrinology, Diabetes, and Metabolism Comment on above: osteoporosis Start: 09-21-2024 Yearly Adult Physical Yearly Adult Physical [facility] Start: 07-30-2024 End: 07-30-2024 Patient encounter procedure 07/30/2024 3:00 PM EDT Office Visit Pulmonary Medicine [address] [facility] [address] [place] [address] Alan Rene MD [address] [place] [address] 4 MONTH Pulmonary Medicine Comment on above: 4 MONTH Start: 07-30-2024 End: 07-30-2024 ambulatory Pulmonary Lab Comment on above: PFT Start: 07-12-2024 Covid-19 Vaccine (8 - Moderna risk 2023- season) Covid-19 Vaccine (8 - Moderna risk season) [facility] Start: 06-21-2024 End: 06-21-2024 Patient encounter procedure 06/21/2024 1:00 PM EST Appointment [facility] [address] [facility] [address] [place] [phone] [facility] Start: 06-04-2024 End: 06-04-2025 25-hydroxyvitamin D3 [Mass/volume] in Serum or Plasma Vitamin D 25-Hydroxy,Total (for eval of Vitamin D levels) Lab Routine Other osteoporosis without current pathological fracture Expected: 06/04/2024 (Approximate), Expires: 06/04/2025 [facility] Work Phone: Comment on above: Expected: 06/04/2024 (Approximate), Expi res: 06/04/2025 Start: 06-04-2024 End: 06-04-2025 CBC W Auto Differential panel - Blood CBC and Auto Differential Lab Routine Encounter for annual general medical examination without abnormal findings in adult Expected: 06/04/2024 (Approximate), Expires: 06/04/2025 [facility] Work Phone: Comment on above: Expected: 06/04/2024 (Approximate), Expi res: 06/04/2025 Start: 06-04-2024 End: 06-04-2025 Cobalamin (Vitamin B12) [Mass/volume] in Serum or Plasma Vitamin B12 Lab Routine Anemia, unspecified type Expected: 06/04/2024 (Approximate), Expires: 06/04/2025 [facility] Work Phone: Comment on above: Expected: 06/04/2024 (Approximate), Expi res: 06/04/2025 Start: 06-04-2024 End: 06-04-2025 Comprehensive metabolic 2000 panel - Serum or Plasma Comprehensive Metabolic Panel Lab Routine Encounter for annual general medical examination without abnormal findings in adult Expected: 06/04/2024 (Approximate), Expires: 06/04/2025 [facility] Work Phone: Comment on above: Expected: 06/04/2024 (Approximate), Expi res: 06/04/2025 Start: 06-04-2024 End: 06-04-2025 DBT Breast - bilateral BI mammo bilateral screening tomosynthesis Imaging Routine Encounter for screening mammogram for malignant neoplasm of breast Expected: 06/04/2024 (Approximate), Expires: 06/04/2025 [facility] [[email or web address] Service Area Work Phone: Comment on above: Expected: 06/04/2024 (Approximate), Expi res: 06/04/2025 Start: 06-04-2024 End: 06-04-2025 DXA Skeletal system Views for bone density XR DEXA bone density Imaging Routine Encounter for osteoporosis screening in asymptomatic postmenopausal patient Other osteoporosis without current pathological fracture Expected: 06/04/2024 (Approximate), Expires: 06/04/2025 [facility] Work Phone: Comment on above: Expected: 06/04/2024 (Approximate), Expi res: 06/04/2025 Start: 06-04-2024 End: 06-04-2025 Folate [Mass/volume] in Serum or Plasma Folate Lab Routine Anemia, unspecified type Expected: 06/04/2024 (Approximate), Expires: 06/04/2025 [facility] Work Phone: Comment on above: Expected: 06/04/2024 (Approximate), Expi res: 06/04/2025 Start: 06-04-2024 End: 06-04-2025 Lipid 1996 panel - Serum or Plasma Lipid Panel Lab Routine Encounter for annual general medical examination without abnormal findings in adult Expected: 06/04/2024 (Approximate), Expires: 06/04/2025 [facility] Work Phone: Comment on above: Expected: [...] in adult Expected: 06/04/2024 (Approximate), Expires: 06/04/2025 [facility] Work Phone: Comment on above: Expected: 06/04/2024 (Approximate), Expi res: 06/04/2025 Start: 05-31-2024 Screening for osteoporosis Bone Density Scan [facility] Start: 03-09-2024 Covid-19 Vaccine ( season) Covid-19 Vaccine ( season) [facility] Start: 03-05-2024 End: 03-05-2024 Patient encounter procedure 03/05/2024 3:20 PM EST Office Visit Pulmonary Medicine [address] [address] Alan Rene MD [address] [place] [address] ILD (interstitial lung disease) (HCC) [J84.9] Pulmonary Medicine Comment on above: ILD (interstitial lung disease) (HCC) [J 84.9] Start: 03-05-2024 End: 03-05-2024 ambulatory Pulmonary Lab Comment on above: ILD (interstitial lung disease) (HCC) [J 84.9] Start: 12-18-2023 Influenza vaccination Influenza Vaccine (#1) [facility] Start: 11-04-2023 End: 11-04-2023 ambulatory 11/04/2023 9:00 AM EDT Visit (SP) Office Hematology/Oncology [address] [place] [address] 2ND Hematology/Oncology Comment on above: 2ND Start: 10-21-2023 End: 09-20-2024 DBT Breast - bilateral BI mammo bilateral screening tomosynthesis Imaging Routine Encounter for screening mammogram for malignant neoplasm of breast Expected: 10/21/2023, Expires: 09/20/2024 [facility] Work Phone: Comment on above: Expected: 10/21/2023, Expires: Start: 09-22-2023 End: 09-20-2024 25-hydroxyvitamin D3 [Mass/volume] in Serum or Plasma Vitamin D 25-Hydroxy,Total (for eval of Vitamin D levels) Lab Routine Vitamin D deficiency Expected: 09/22/2023 (Approximate), Expires: 09/20/2024 [facility] Work Phone: Comment on above: Expected: 09/22/2023 (Approximate), Expi res: 09/20/2024 Start: 09-22-2023 End: 09-20-2024 CBC W Auto Differential panel - Blood CBC and Auto Differential Lab Routine Encounter for annual general medical examination without abnormal findings in adult Expected: 09/22/2023 (Approximate), Expires: 09/20/2024 [facility] Work Phone: Comment on above: Expected: 09/22/2023 (Approximate), Expi res: 09/20/2024 Start: 09-22-2023 End: 09-20-2024 Cobalamin (Vitamin B12) [Mass/volume] in Serum or Plasma Vitamin B12 Lab Routine Vitamin B 12 deficiency Expected: 09/22/2023 (Approximate), Expires: 09/20/2024 [facility] Work Phone: Comment on above: Expected: 09/22/2023 (Approximate), Expi res: 09/20/2024 Start: 09-22-2023 End: 09-20-2024 Comprehensive metabolic 2000 panel - Serum or Plasma Comprehensive Metabolic Panel Lab Routine Encounter for annual general medical examination without abnormal findings in adult Expected: 09/22/2023 (Approximate), Expires: 09/20/2024 [facility] Work Phone: Comment on above: Expected: 09/22/2023 (Approximate), Expi res: 09/20/2024 Start: 09-22-2023 End: 09-20-2024 Hemoglobin A1c/Hemoglobin.total in Blood Hemoglobin A1C Lab Routine Hyperglycemia Expected: 09/22/2023 (Approximate), Expires: 09/20/2024 [facility] Work Phone: Comment on above: Expected: 09/22/2023 (Approximate), Expi res: 09/20/2024 Start: 09-22-2023 End: 09-20-2024 Hepatitis C virus Ab [Presence] in Serum Hepatitis C Antibody Lab Routine Encounter for annual general medical examination without abnormal findings in adult Expected: 09/22/2023 (Approximate), Expires: 09/20/2024 [facility] Work Phone: Comment on above: Expected: 09/22/2023 (Approximate), Expi res: 09/20/2024 Start: 09-22-2023 End: 09-20-2024 HIV 1+2 Ab+HIV1 p24 Ag [Presence] in Serum or Plasma by Immunoassay HIV 1/2 Antigen/Antibody Screen with Reflex to Confirmation Lab Routine Encounter for annual general medical examination without abnormal findings in adult Expected: 09/22/2023 (Approximate), Expires: 09/20/2024 [facility] Work Phone: Comment on above: Expected: 09/22/2023 (Approximate), Expi res: 09/20/2024 Start: 09-22-2023 End: 09-20-2024 Lipid 1996 panel - Serum or Plasma Lipid Panel Lab Routine Encounter for annual general medical examination without abnormal findings in adult Expected: 09/22/2023 (Approximate), Expires: 09/20/2024 [facility] [[email or web address] Service Area Work Phone: Comment on above: Expected: 09/22/2023 (Approximate), Expi res: 09/20/2024 Start: 09-22-2023 End: 09-20-2024 TSH with reflex to Free T4 if abnormal TSH with reflex to Free T4 if abnormal Lab Routine Hyperparathyroidism (Multi) Expected: 09/22/2023 (Approximate), Expires: 09/20/2024 [facility] Work Phone: Comment on above: Expected: 09/22/2023 (Approximate), Expi res: 09/20/2024 Start: 08-31-2023 End: 08-31-2023 Patient encounter procedure 08/31/2023 11:40 AM EDT Office Visit Pulmonary Medicine [address] [address] Alan Rene MD [address] [place] [address] follow up Pulmonary Medicine Comment on above: follow up Start: 08-31-2023 End: 08-31-2023 ambulatory Pulmonary Lab Comment on above: pft Start: 08-16-2023 End: 11-15-2023 25-hydroxyvitamin D3 [Mass/volume] in Serum or Plasma VITAMIN D 25 HYDROXY Lab Routine Osteoporosis without current pathological fracture, unspecified osteoporosis type Vitamin D deficiency Expected: 08/16/2023, Expires: 11/15/2023 [facility] Comment on above: Expected: 08/16/2023, Expires: Start: 08-16-2023 End: 11-15-2023 Basic metabolic 2000 panel - Serum or Plasma BASIC METABOLIC PANEL Lab Routine Osteoporosis without current pathological fracture, unspecified osteoporosis type Vitamin D deficiency Expected: 08/16/2023, Expires: 11/15/2023 [facility] Work Phone: Comment on above: Expected: 08/16/2023, Expires: Start: 08-16-2023 End: 11-15-2023 Parathyrin.intact [Mass/volume] in Serum or Plasma PTH INTACT Lab Routine Osteoporosis without current pathological fracture, unspecified osteoporosis type Vitamin D deficiency Expected: 08/16/2023, Expires: 11/15/2023 [facility] Comment on above: Expected: 08/16/2023, Expires: Start: 08-13-2023 Screening for malignant neoplasm of cervix Cervical Cancer Screening [facility] Start: 06-15-2023 PNEUMOCOCCAL (2 - PCV) PNEUMOCOCCAL (2 - PCV) [facility] Comment on above: Postponed from 02/09/2008 (Declined at t his time) Start: 06-15-2023 Pneumococcal vaccination Pneumococcal Vaccine (2 - PCV) [facility] Comment on above: Postponed from 02/09/2008 (Declined at t his time) Start: 06-15-2023 SHINGRIX VACCINE (1 of 2) SHINGRIX VACCINE (1 of 2) [facility] Comment on above: Postponed from 1999 (Declined at t his time) Start: 05-31-2023 ANNUAL PCP TEAM CHRONIC DISEASE VISIT ANNUAL PCP TEAM CHRONIC DISEASE VISIT [facility] Start: 05-31-2023 COVID-19 Vaccine ( season) COVID-19 Vaccine ( season) [facility] Start: 05-31-2023 Covid-19 Vaccine ( season) Covid-19 Vaccine () [facility] Start: 05-31-2023 Screening for osteoporosis Bone Density Scan [facility] Start: 04-18-2023 Behavioral Health Screening Behavioral Health Screening [facility] Start: 04-17-2023 DEPRESSION ASSESSMENT DEPRESSION ASSESSMENT [facility] Comment on above: Postponed from 04/18/2022 (Declined at t his time) Start: 03-24-2023 End: 12-24-2023 CT Chest WO contrast CT chest wo IV contrast Imaging Routine Wheezing SOB (shortness of breath) Abnormal chest x-ray Pneumonitis Bronchiectasis with acute exacerbation (CMS/HCC) Cough, unspecified type Expected: 03/24/2023 (Approximate), Expires: 12/24/2023 [facility] [[email or web address]]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 [facility] Work Phone: 03-06-2008 hepatitis B vaccine, adult dosage Tayokarrie Rodriguez Work Phone: [facility] Work Phone: 03-05-2008 hepatitis B vaccine, adult dosage Alan Rene MD Work Phone: [facility] Work Phone: 03-05-2008 hepatitis B vaccine, unspecified formulation Pulm Lisast2 Work Phone: [facility] 02-21-2008 influenza virus vaccine, unspecified formulation Alan Rene MD Work Phone: [facility] Work Phone: 02-23-2007 hepatitis A vaccine, unspecified formulation Alan Rene MD Work Phone: [facility] Work Phone: 02-23-2007 hepatitis B immune globulin Alan Rene MD Work Phone: [facility] Work Phone: 02-15-2007 diphtheria, tetanus toxoids and acellular pertussis vaccine Alan Rene MD Work Phone: [facility] 02-08-2007 influenza virus vaccine, unspecified formulation Alan Rene MD Work Phone: [facility] Work Phone: 02-08-2007 pneumococcal polysaccharide vaccine, 23 valent Alan Rene MD Work Phone: [facility] Work Phone: 03-30-2006 influenza virus vaccine, whole virus Alan Rene MD Work Phone: [facility] Work Phone: NEGATED: Highlighted row has not occurred!02-16-2018 influenza, injectable, quadrivalent, preservative free Alan Rene MD Work Phone: [facility] Comment on above: Deferred: Patient Re fused Payers Date Payer Category Payer Self-pay [id number] 2024 Unknown [id number] 2022 Private Health Insurance MEDPAY [facility] [place] [address] [id number] 2021 Blue Cross Blue Shie ld Managed Care [id number] 2019 Blue Cross Blue Shield [id number] [id number] 2019 Unknown 2019 Unknown JOYCE SANCHEZ ACCE SS PPO [id number] 2019-Present [phone] [address] [place] [address] PPO [id number] 2019 Unknown [id number] 1980 Unknown [id number] [id number]. 2.598 1980 Unknown [id number] [id number]. 2.356 1980 Unknown [id number] 2.16.840.1.828117.3.579. 2.356 1980 Unknown [id number] 2.16.840.1.353260.3.579. 2.356 1980 Unknown [id number] [id number]. 2.356 1980 Unknown [id number] 2.16.840.1.941954.3.579. 2.1242 1980 Unknown [id number] [id number]. 2.1242 1980 Unknown [id number] 2.16.840.1.032979.3.579. 2.1242 1980 Unknown [id number] 2.16.840.1.650885.3.579. 2.1242 1980 Unknown [id number] 2.16.840.1.718556.3.579. 2.1243 1980 Unknown [id number] 2.16.840.1.098923.3.579. 2.1243 1980 Unknown [id number] 2.16.840.1.489188.3.579. 2.1243 1980 Unknown [id number] [id number]. 2.1244 1980 Unknown [id number] [id number]. 2.1244 1980 Unknown [id number] [id number]. 2.1244 1959 Unknown [id number] Unknown [id number]. 2.462 Social History Date Type Detail Facility Start: 08-29-2019 End: 08-29-2019 Assertion Unknown if ever smoked [facility] Work Phone: Start: 04-06-2021 End: 12-20-2024 Never smoker Never smoker [facility] Work Phone: Start: 10-23-2010 End: 06-21-2022 Tobacco smoking status NHIS Never smoked tobacco [facility] Start: 04-06-2021 End: 01-23-2025 Alcohol intake Current drinker of alcohol (finding) [facility] Start: 1980 Sex Assigned At Not on file [facility] Start: 10-02-2021 End: 07-05-2024 Exposure to SARS-CoV-2 (event) Not sure [facility] Start: 10-23-2010 End: 06-21-2022 Tobacco use and exposure Smokeless tobacco non-user [facility] Start: 12-12-2021 End: 12-22-2021 Exposure to SARS-CoV-2 (event) Unable to assess [facility] Start: 12-30-2021 History SDOH Alcohol Comment occasional [facility] Start: 03-22-2015 Spouse/ Signif icant Other [facility] Start: 1980 Sex Assigned At Female W [facility] Start: 06-21-2022 End: 07-08-2022 Alcohol intake Not Asked [facility] Work Phone: Start: 06-21-2022 End: 12-20-2024 Alcohol Use Disorder Identification Test - Consumption [AUDIT-C] [facility] Work Phone: How often to you hav e a drink containing alcohol? 2-3 time sa week [facility] Work Phone: How many standard dr inks containing alcohol do you have on a typical day? 1 or 2 [facility] Work Phone: How often do you hav e 6 or more drinks on 1 occasion? 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 [facility] Work Phone: NEGATED: Highlighted row [facility] NEGATED: Highlighted rowStart: NINF History of tobacco use Passive smoker [facility] Work Phone: Medical Equipment Procedure Code Equipment Code Equipment Origin al Text Equipment Identifier Dates Appendectomy, laparoscopic 45mm Standard Reload FDA Start: 03-30-2021 Functional Status Date Assessment Result Facility 12-20-2024 Patient Health [facility] ionnaire 2 item (PHQ-2) [Reported] [facility] Work Phone: 10-17-2014 Are you deaf, or do you have serious difficulty hearing No 10/17/2014 10:02 AM EDT [facility] 10-17-2014 Are you blind, or do you have serious difficulty seeing, even when wearing glasses No 10/17/2014 10:02 AM EDT [facility] 10-17-2014 Do you have serious difficulty walking or climbing stairs No 10/17/2014 10:02 AM EDT [facility] 10-17-2014 Do you have difficul ty dressing or bathing No 10/17/2014 10:02 AM EDT [facility] 10-17-2014 Because of a physica l, mental, or emotional condition, do you have difficulty doing errands alone such as visiting a physician's office or shopping No 10/17/2014 10:02 AM EDT [facility] Mental Status Date Assessment Result Facility 10-17-2014 Because of a physica l, mental, or emotional condition, do you have serious difficulty concentrating, remembering, or making decisions No 10/17/2014 10:02 AM EDT [facility] Clinical Notes 04-25-2013 to 02-20-2025 Paul Noel, [facility] - 02/11/2025 3:00 PM EDTAssessment & Plan Note - Tayo Rodriguez MD - 01/23/2025 12:00 PM Duyen Rodriguez MD - 01/23/2025 12:00 PM EDTPatient InstructionsPatient Instructions Note Date & Type Note Facility 02-20-2025 Note HNO ID: [id number] Author: ESMER FRYE MD Service: ? Author Type: Physician Type: Progress Notes Filed: 02/20/2025 15:27 Note Text: Rheumatology FOLLOW UP VISIT Date of Service: 02/20/2025 Patient: Tamy Vazquez Medical Record: [id number] Primary Care Physician: Tayo Rodriguez MD Last Rheumatology visit: 01/16/2025 (with Esmer Frye) Chief Complaint: Follow Up This is a virtual visit using Relayom Video Visit. It required patient-provider interaction for the medical decision making as documented below. Patient consented to this form of visit. I have communicated my name and active licensure. The patient's identity and physical location were verified at the time of this visit. Either the patient or their legal provider relations representative has been informed of the risks and benefits of -- and alternatives to -- treatment through a remote evaluation and consents to proceed with the evaluation remotely. INTERVAL HISTORY The patient is a 44-year-old female with Vitamin D deficiency, GERD, endometriosis, protein S deficiency, asthma, primary hyperparathyroidism, allergies, nephrolithiasis, fibroids who presents to rheumatology clinic to establish care with new provider for SLE/overlap syndrome with manifestations of high titer positive GABRIEL, dsDNA, Hill, high titer FINISHING RANGE FEEDER, high titer chromatin, intermittent leukopenia thrombocytopenia, solitary episode of low C4, multiple equivocal cardiolipin antibodies, history of DVT, oral ulcers, Raynaud's with digital pitting, sclerodactyly, ILD with UIP pattern, inflammatory arthralgias, patulous esophagus, sicca, bloating. Tamy Vazquez was last evaluated 1 month ago to establish care with a new provider. 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 Approximately 24 hours post-exercise, she experienced severe pain in her shoulders and back, accompanied by chest tightness, prompting an ER visit. She was evaluated at [facility], where she underwent a chest X-ray, D-dimer test, and blood work, all of which were reportedly normal. She was diagnosed with musculoskeletal pain and was treated with morphine and prescribed Flexeril 10 mg. She has been taking Advil for pain management and reports feeling much better today. She notes increased sensitivity to physical activity since starting Myfortic, experiencing musculoskeletal issues with minimal exertion. She continues to experience morning cough, which she attributes to her inhaler use. She expresses concern about using her inhaler due to previous episodes of thrush but reports brushing her teeth immediately after use to mitigate this risk. She denies fevers, hemoptysis, hematemesis, hematuria, melena, or arthralgia. She is currently taking hydroxychloroquine 200 mg daily and Myfortic 180 mg, 1 tablet in the morning and 3 at night. She denies any bleeding and is postmenopausal. She inquires about alternative pain management options, expressing a preference for Tylenol over Advil. She also asks about the possibility of achieving remission and expresses willingness to adjust her Myfortic dosage. She is up to date with her eye exams, with the last exam conducted 6 months ago. She is scheduled to see Dr. Rene in March. RHEUMATOLOGIC HISTORY Tamy is both RF - 9 (01/21/2025) and CCP - 13.5 (06/24/2020) negative. Her most recent GABRIEL was positive (01/21/2025). HISTORY OF PRESENT ILLNESS 1. SLE/overlap syndrome with manifestations of high titer positive GABRIEL, dsDNA, Hill, high titer FINISHING RANGE FEEDER, high titer chromatin, intermittent leukopenia thrombocytopenia, solitary episode of low C4, multiple equivocal cardiolipin antibodies, history of DVT, oral ulcers, Raynaud's with digital pitting, sclerodactyly, ILD with UIP pattern, inflammatory arthralgias, patulous esophagus, sicca, bloating. 2. Vitamin D deficiency 3. Endometriosis 4. Protein S deficiency with previous clot 5. Asthma 6. Primary hyperparathyroidism 7. Allergies 8. Kidney stones Treatment: Hydroxychloroquine 2004-present currently 200 mg a day CellCept, caused tinnitus, myalgia, fatigue, etc. Azathioprine, discontinued to switch to mycophenolate due to ILD Myfortic currently 180 mg in the morning and 540 mg in the evening Workup: - 2024 C4: Single episode low - 2022 SPEP: Negative - 2021 - GABRIEL: >1:1280, coarse speckled nuclear pattern - Anti-dsDNA: 144, positive - Anti-Hill: Elevated - FINISHING RANGE FEEDER: 7.9 - Chromatin antibody: >8.0 - Hematology: Intermittent leukopenia and thrombocytopenia - Y2-glycoprotein IgA/IgG/IgM: Negative - Anticardiolipin IgA/IgG/IgM: Negative - C3, C4: Normal - 2020 - ANCA: Negative - MPO/PR3: Negative - RF: Negative - 2010 Anticardiolipin IgG: Equivocal - 2006 Anticardiolipin IgM: Equivocal - 2005 Anticardiolipin IgG: Equivocal - 2003 Anticardiolipin IgG: Equivocal - Urinalysis: Trace protein; n (more content not included)... [facility] 02-11-2025 History of Present illness Narrative Images [...] and clinical pharmacy team. Thank you, Paul Noel, [facility] Clinical Pharmacist Verbal consent to manage patient's drug therapy was obtained from the patient. They were informed they may decline to participate or withdraw from participation in pharmacy services at any time. [1] Allergies Allergen Reactions Zinc Edlhpxg-Nadugpfovyl-Lxq Rash Cefdinir Hives Dizzy Zinc Acetate Hives Loa burning at area Metronidazole Diarrhea, Hives, Other and Rash Nausea, fatigue, poor appetite documented in this encounter [facility] Work Phone: 01-24-2025 Note HNO ID: [id number] Author: LIN SUNG RT(R) Service: ? Author Type: Stock Handler Type: Progress Notes Filed: 01/24/2025 14:37 Note [...] PATIENT PRESENTS WITH AN IMPLANTABLE OR ATTACHED NOVELTY TWISTER TENDER: No RADIOLOGY DEPARTMENT: CT; Exam(s) Completed: Abdomen/Pelvis . Anesthesia: No PERIPHERAL IV DATA: Not applicable SIGNED BY: RT Opal(R) January 24, 2025 2:37 PM [facility] 01-23-2025 Evaluation + Plan note Associated Problem(s): Iron deficiency anemia, unspecified Orders: CT abdomen pelvis wo IV contrast; Future [facility] Work Phone: 01-23-2025 History of Present [...] recently had blood work done by her grain weigher on January 21, which showed these results. [...] patient listed who was located in the [facility] and myself, Tayo Angela (Board certified in the [facility]). At the start of the visit, I introduced myself as Dr. Rodriguez and verified the patients name, , and current physical location. If they were currently outside of the state [facility], the visit was ended and the patient [...] patient verbalized understanding documented in this encounter [facility] Work Phone: 01-23-2025 Instructions Tayo Rodriguez [...] and next steps. documented in this encounter [facility] Work Phone: 01-23-2025 Miscellaneous Notes Associated Problem(s): Iron deficiency anemia, unspecified Orders: CT abdomen pelvis wo IV contrast; Future documented in this encounter [facility] Work Phone: 01-22-2025 Note HNO ID: [id number] Author: JOAN SALTER APRN.JEWELRY SALES ASSOCIATE Service: ? Author Type: Nurse Practitioner Type: [...] recent menstrual periods. 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 [...] BR/WA SPX 04/18/2004 Laparoscopy for endometriosis at [place] [address] Soliman at [facility], no control afterward, ++relief and [...] - Repeat ur (more content not included)... [facility] 01-16-2025 Note HNO ID: [id number] Author: ESMER FRYE MD Service: ? Author Type: Physician Type: Progress Notes Filed: 01/17/2025 10:53 Note Text: Rheumatology CONSULTATION Date of Service: 01/16/2025 Patient: Tamy Vazquez Medical Record: [id number] Primary Care Physician: Tayo Rodriguez MD Last Rheumatology visit: None at [facility] Referring Provider: No referring provider defined for this encounter. Chief Complaint: No chief complaint on file. Tamy Vazquez is here today specifically for consultation of my opinion in regards to the chief complaint listed above. Correspondence will be shared today via the [employer] electronic health record or through regular mail, where applicable. 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 Loya, who titrated the dose gradually. [...] Osteoporosis (grandmother) - (more content not included)... [facility] 12-20-2024 Evaluation + Plan note Associated Problem(s): Vitamin D deficiency Orders: Vitamin D 25-Hydroxy,Total (for eval of Vitamin D levels); Future TSH with reflex to Free T4 if abnormal; Future [facility] Work Phone: 12-20-2024 Evaluation + Plan note Associated Problem(s): Vitamin B 12 deficiency Orders: Vitamin B12; Future TSH with reflex to Free T4 if abnormal; Future [facility] Work Phone: 12-20-2024 Evaluation + Plan note Associated Problem(s): MCTD (mixed connective tissue disease) (Multi) Orders: DULoxetine (Cymbalta) [address] capsule; Take 1 capsule (20 mg) by mouth once daily. Do not crush or chew. [facility] Work Phone: 12-20-2024 Evaluation + Plan note Associated Problem(s): Hypercoagulable state, secondary (Multi) Stable on current medications Continue meds and exercise. Will continue home monitoring of coumadin [facility] Work Phone: 12-20-2024 Evaluation + Plan note Associated Problem(s): Psoriasis Orders: roflumilast (Zoryve) 0.3 % cream; Apply 1 Application topically once daily. [facility] Work Phone: 12-20-2024 Evaluation + Plan note Associated Problem(s): ILD (interstitial lung disease) (Multi) Orders: budesonide-formoterol (Symbicort) 160-4.5 mcg/actuation inhaler; Inhale 2 puffs 2 times a day. Rinse mouth with water after use to reduce aftertaste and incidence of candidiasis. Do not swallow. [facility] Work Phone: 12-20-2024 History of Present [...] body aches if current treatment is insufficient. Tie Mill Operator consultation needed before starting new infusions. - Prescribe duloxetine 20 mg once daily - Consult with grain weigher regarding body aches and potential infusions - Monitor for side effects and effectiveness of duloxetine Pulmonary fibrosis, stable Pulmonary fibrosis is well-managed with CellCept. Potential addition of nintedanib if condition worsens. - Continue current management with CellCept - Consult charge accounts audit clerk if considering new treatments Psoriasis of the [...] Overall Function: Better documented in this encounter [facility] Work Phone: 12-20-2024 Instructions Tayo Rodriguez [...] You will need to consult with a charge accounts audit clerk before starting any new infusions. We have [...] with your current management and consult a charge accounts audit clerk if new treatments are needed. -PSORIASIS OF [...] date. INSTRUCTIONS: Please follow up with a charge accounts audit clerk before starting any new infusions for your mixed connective tissue disease. Continue taking CellCept for your pulmonary fibrosis and consult a charge accounts audit clerk if you consider new treatments. Start taking [...] be sent through Care Everywhere.Generalized anxiety disorder ([place])Yearly Physical for Adults ([place])documented in this encounter [facility] Work Phone: 09-04-2025 Miscellaneous Notes Associated Problem(s): Vitamin D deficiency [...] Do not swallow. documented in this encounter [facility] Work Phone: 10-31-2024 Note HNO ID: [id number] Author: CARMELLA CABRERA APRN.JEWELRY SALES ASSOCIATE Service: ? Author Type: Nurse Practitioner Type: Progress Notes Filed: 10/31/2024 16:59 Note Text: Supervisor Decorating offered: Patient declines. Dhaliwal is a 44 year old who presents for an annual gynecologic exam without complaints. Menses: No menses. Diagnosed with premature ovarian insufficiency by Dr. Evans in 2019 - Blood work 2020 - fragile X negative - DEXA 2018 osteoporosis - following with endocrinology - Taking Reclast for osteoporosis management. 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) Chronic Nonallergic Rhinitis 06/12/2009 Connective tissue disorder ([facility]) with ILD raynauds Endometriosis, site unspecified Endometriosis Esophageal reflux hx of low vitamin D recheck normal Hyperparathyroidism ([facility]) 2015 parathyroidectomy Menorrhagia fibroids UFE Nephrolithiasis Osteoporosis 05/2022 with LOSS T-score -3.0 08/2022 nl urine calcium 260 Peripheral vascular disease Personal history of unspecified urinary disorder PMH - PAST MEDICAL HISTORY OF 04/18/2005 blood clot internal jugular vein, 4 weeks diagnosed Protein S deficiency ([facility]) 05/19/2002 cavernous sinus thrombosis 4 week Raynaud's syndrome CTD plaquenil Rib fracture 06/19/2014 Seasonal allergies Uterine fibroid s/p UFE PAST SURGICAL HISTORY Procedure Laterality Date EMBOLIZATION UTERINE FIBROID 03/18/2013 LAPAROSCOPIC APPENDECTOMY 03/30/2021 LAPS ABD PRTMANDOMENTUM DX W/WO SPEC BR/WA SPX 04/18/2004 Laparoscopy for endometriosis at [place] Dr Soliman at [facility], no control afterward, ++relief and [...] discussed with the Patient or Patient's Authorized Pharmacy Aide. As applicable, any other physician, advance practice provider, medical student, or other health professional student that will be observing or involved in the sensitive examination for educational or training purposes was discussed with the Patient or Authorized Pharmacy Aide. The Patient or Authorized Pharmacy Aide has agreed to proceed with the sensitive [...] PELVIC: external genitalia (more content not included)... [facility] 10-31-2024 History of Present illness Narrative Supervisor Decorating offered: Patient declines. Dhaliwal is a 44 year old who presents for an annual gynecologic exam without complaints. Menses: No menses. Diagnosed with premature ovarian insufficiency by Dr. Evans in 2019 - Blood work 2020 - fragile X negative - DEXA 2018 osteoporosis - following with endocrinology - Taking Reclast for osteoporosis management. 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) Chronic Nonallergic Rhinitis 06/12/2009 Connective tissue disorder ([facility]) with ILD raynauds Endometriosis, site unspecified Endometriosis Esophageal reflux hx of low vitamin D recheck normal Hyperparathyroidism ([facility]) 2014 parathyroidectomy Menorrhagia fibroids UFE Nephrolithiasis Osteoporosis 05/2022 with LOSS T-score -3.0 08/2022 nl urine calcium 260 Peripheral vascular disease Personal history of unspecified urinary disorder PMH - PAST MEDICAL HISTORY OF 04/18/2005 blood clot internal jugular vein, 4 weeks diagnosed Protein S deficiency ([facility]) 05/19/2002 cavernous sinus thrombosis 4 week Raynaud's syndrome CTD plaquenil Rib fracture 06/19/2014 Seasonal allergies Uterine fibroid s/p UFE PAST SURGICAL HISTORY Procedure Laterality Date EMBOLIZATION UTERINE FIBROID 03/18/2013 LAPAROSCOPIC APPENDECTOMY 03/30/2021 LAPS ABD PRTM&OMENTUM DX W/WO SPEC BR/WA SPX 04/18/2004 Laparoscopy for endometriosis at [place] Dr Soliman at [facility], no control afterward, ++relief and [...] discussed with the Patient or Patient's Authorized Pharmacy Aide. As applicable, any other physician, advance practice provider, medical student, or other health professional student that will be observing or involved in the sensitive examination for educational or training purposes was discussed with the Patient or Authorized Pharmacy Aide. The Patient or Authorized Pharmacy Aide has agreed to proceed with the sensitive [...] external genitalia normal, normal Bartholin's glands, urethra, Vicco's glands, no vulvar lesions, no cervical lesions, [...] year or sooner as needed Carmella Cabrera APRN.JEWELRY SALES ASSOCIATE documented in this encounter [facility] 10-02-2024 Telephone encounter Note 10/01/24 labs reviewed. [...] or extra as well? - Reclast ordered. [facility] 10-02-2024 Miscellaneous Notes 10/01/24 labs reviewed. Calcium [...] - Reclast ordered. documented in this encounter [facility] 09-26-2024 Note HNO ID: [id number] Author: LORA RODRIGUES MD Service: ? Author Type: Physician Type: Progress Notes Filed: 09/26/2024 10:26 Note Text: Endocrinology Virtual Visit This is a virtual visit using Relayom Video Visit. It required patient-provider interaction for the medical decision making as documented below. I have communicated my name and active licensure. The patient's identity and physical location were verified at the time of this visit. Either the patient or their legal provider relations representative has been informed of the risks [...] 2013 for hyperparathyroidism; she was seen from [id number]. Then she started following with me for [...] disorder. She is on Plaquenil. Follows with grain weigher regularly. - She also has interstitial lung [...] of low vitamin D recheck normal Hyperparathyroidism ([facility]) 2015 parathyroidectom (more content not included)... [facility] 09-26-2024 History of Present illness Narrative Endocrinology Virtual Visit This is a virtual visit using [employer] Zoom Video Visit. It required patient-provider interaction for the medical decision making as documented below. I have communicated my name and active licensure. The patient's identity and physical location were verified at the time of this visit. Either the patient or their legal provider relations representative has been informed of the risks [...] 2013 for hyperparathyroidism; she was seen from [id number]. Then she started following with me for [...] disorder. She is on Plaquenil. Follows with grain weigher regularly. - She also has interstitial lung [...] BR/WA SPX 04/18/2004 Laparoscopy for endometriosis at [place] [address] [place] at [facility], no control afterward, ++relief and [...] visit. ALLERGIES Allergen Reactions Amerigel [Zinc Acet* Loa burning at area Cefdinir Other: See Comments [...] which included preparing to see the patient, [id number] patient care, completing clinical documentation, obtaining and/or reviewing separately obtained history, performing a medically appropriate examination, counseling and educating the patient/family/caregiver, and ordering medications, tests, or procedures Lora Rodrigues MD documented in this encounter [facility] 09-25-2024 Telephone encounter Note Spoke w pt and she is scheduled. Serina Parra [facility] 09-25-2024 Miscellaneous Notes Spoke w pt and she is scheduled. Serina Parra Tried to call pt 2x to schedule but its all static. Serina Parra Patient called to have Reclast scheduled. States Dr. Rodrigues ordering. Please review and advise. documented in this encounter [facility] 09-24-2024 Telephone encounter Note Patient was last seen for a virtual appointment on 08/16/2023; 14 months ago. Plan: Schedule appointment. -Can schedule for appointment on 09/26/2024 at 10 AM. - Can do a virtual appointment if unable to come. [facility] 09-24-2024 Miscellaneous Notes Patient was last seen for a virtual appointment on 08/16/2023; 14 months ago. Plan: Schedule appointment. -Can schedule for appointment on 09/26/2024 at 10 AM. - Can do a virtual appointment if unable to come. documented in this encounter [facility] 09-24-2024 Telephone encounter Note Tried to call pt 2x to schedule but its all static. Serina Parra [facility] 09-24-2024 Telephone encounter Note Patient called to have Reclast scheduled. States Dr. Rodrigues ordering. Please review and advise. [facility] Work Phone: 07-30-2024 History of Present illness Narrative Images from the original note were not included. [facility] [place] [place] Tamy Vazquez is a 44 year old female here for a follow up with the [facility] Interstitial Lung Disease Team. HISTORY OF PRESENT ILLNESS: Mixed Connective Tissue Disease: - Reports stable lung function. - Recent body aches and congestion; received an antibiotic prescription but has not started it due to concerns about INR fluctuations. - Experiences frequent temperature changes due to biweekly travel to [place]. - Recent episode of chills after a flight, resolved with hydration and Tylenol. - Fully vaccinated for COVID-19. - Overdue for an echocardiogram; last one was in 2021. - Recent mammogram showed dense tissue but was otherwise normal. Wrist Pain: - Pain initiated after a Pilates class. - Massage in [place] provided temporary relief. - Pain recurs if not wearing a brace at night. Mixed Connective Tissue Disease: - Reports stable lung function. - Recent body aches and congestion; received an antibiotic prescription but has not started it due to concerns about INR fluctuations. - Experiences frequent temperature changes due to biweekly travel to [place]. - Recent episode of chills after a flight, resolved with hydration and Tylenol. - Fully vaccinated for COVID-19. - Overdue for an echocardiogram; last one was in 2021. - Recent mammogram showed dense tissue but was otherwise normal. Wrist Pain: - Pain initiated after a Pilates class. - Massage in [place] provided temporary relief. - Pain recurs if [...] BR/WA SPX 04/18/2004 Laparoscopy for endometriosis at [place] [address] [facility]iman at [facility], no control afterward, ++relief and [...] Son ALLERGIES Allergen Reactions Amerigel [Zinc Acet* Loa burning at area Cefdinir Other: See Comments [...] 97/67 Pulse 85 Resp 20 SpO2 98% LMP 03/23/2020 General: Alert, oriented, no acute distress [...] abnormalities - (2021) Echocardiogram: Normal lled outside grain weigher (Dr. 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 September 2020-cbc and hepatic wnl June 2024-cbc and lft wnl Pulmonary Function Data PFT available: Yes. PFT results Outside hospital-mar 2020 fvc-50%-1.85li fev1-51% dlco -61%. pfts-november 2020 fvc-1.98 liters [...] and agrees to schedule the echocardiogram at [facility] or [facility] at her earliest convenience. - Advised [...] which included preparing to see the patient, [id number]-bz-wmrp patient care, completing clinical documentation, obtaining and/or reviewing separately obtained history, performing a medically appropriate examination, counseling and educating the patient/family/caregiver, ordering medications, tests, or procedures, communicating with other HCPs (not separately reported), independently interpreting results (not separately reported), communicating results to the patient/family/caregiver, and care coordination (not separately reported). CC: documented in this encounter [facility] 07-30-2024 Note HNO ID: [id number] Author: ALAN RENE MD Service: ? Author Type: Physician Type: Progress Notes Filed: 07/30/2024 16:52 Note Text: [facility] [place] Tamy Vazquez is a 44 year old female here for a follow up with the [facility] Interstitial Lung Disease Team. HISTORY OF PRESENT ILLNESS: Mixed Connective Tissue Disease: - Reports stable lung function. - Recent body aches and congestion; received an antibiotic prescription but has not started it due to concerns about INR fluctuations. - Experiences frequent temperature changes due to biweekly travel to [place]. - Recent episode of chills after a flight, resolved with hydration and Tylenol. - Fully vaccinated for COVID-19. - Overdue for an echocardiogram; last one was in 2021. - Recent mammogram showed dense tissue but was otherwise normal. Wrist Pain: - Pain initiated after a Pilates class. - Massage in [place] provided temporary relief. - Pain recurs if not wearing a brace at night. Mixed Connective Tissue Disease: - Reports stable lung function. - Recent body aches and congestion; received an antibiotic prescription but has not started it due to concerns about INR fluctuations. - Experiences frequent temperature changes due to biweekly travel to [place]. - Recent episode of chills after a flight, resolved with hydration and Tylenol. - Fully vaccinated for COVID-19. - Overdue for an echocardiogram; last one was in 2022. - Recent mammogram showed dense tissue but was otherwise normal. Wrist Pain: - Pain initiated after a Pilates class. - Massage in [place] provided temporary relief. - Pain recurs if [...] of low vitamin D recheck normal Hyperparathyroidism ([facility]) 2014 parathyroidectomy Menorrhagia fibroids UFE Nephrolithiasis Osteoporosis 05/2022 with LOSS T-score -3.0 08/2022 nl urine calcium 260 Peripheral vascular disease ([facility]) Personal history of unspecified urinary disorder PMH - PAST MEDICAL HISTORY OF 04/18/2005 blood clot internal jugular vein, 4 weeks diagnosed Protein S deficiency ([facility]) 05/19/2002 cavernous sinus thrombosis 4 week Raynaud's syndrome CTD plaquenil Rib fracture 06/19/2014 Seasonal allergies Uterine fibroid s/p UFE PAST SURGICAL HISTORY Procedure Laterality Date EMBOLIZATION UTERINE FIBROID 03/18/2013 LAPAROSCOPIC APPENDECTOMY 03/30/2021 LAPS ABD PRTMANDOMENTUM DX W/WO SPEC BR/WA SPX 04/18/2004 Laparoscopy for endometriosis at [place] [address] [place]iman at [facility], no control afterward, ++relief and [...] Son ALLERGIES Allergen Reactions Amerigel [Zinc Acet* Loa burning at area Cefdinir Other: See Comments [...] by mouth da (more content not included)... [facility] 06-06-2024 Evaluation + Plan note Associated Problem(s): Coated tongue Wait for culture results [facility] Work Phone: 06-06-2024 Evaluation + Plan note Associated Problem(s): Hypercoagulable state, secondary (Multi) Stable on current medications Continue meds and exercise. Will continue home monitoring of coumadin [facility] Work Phone: 06-06-2024 Evaluation + Plan note Associated Problem(s): Blood clotting disorder (Multi) Stable on current medications Continue meds and exercise. [facility] Work Phone: 06-06-2024 Miscellaneous Notes Associated Problem(s): Coated tongue Wait for culture results Associated Problem(s): Hypercoagulable state, secondary (Multi) Stable on current medications Continue meds and exercise. Will continue home monitoring of coumadin Associated Problem(s): Blood clotting disorder (Multi) Stable on current medications Continue meds and exercise. documented in this encounter [facility] Work Phone: 06-04-2024 History of Present [...] 20 years. Facility age limit for growth %lizzei is 20 years. Physical Exam Vitals and [...] disease) (Multi) J84.9 Relevant Orders Referral to [facility] MCTD (mixed connective tissue disease) (Multi) M35.1 Relevant Orders Referral to [facility] Osteoporosis without current pathological fracture M81.0 Relevant Orders XR DEXA bone density Vitamin D 25-Hydroxy,Total (for eval of Vitamin D levels) TSH with reflex to Free T4 if abnormal Hypercoagulable state, secondary (Multi) D68.69 Stable on current medications Continue meds and exercise. Will continue home monitoring of coumadin Relevant Orders [facility] [facility] Psoriatic arthritis (Multi) L40.50 Relevant Orders Referral to [facility] RESOLVED: Encounter for annual general medical examination [...] as described above. documented in this encounter [facility] Work Phone: 03-29-2024 Note HNO ID: [id number] Author: MADISON MEDINA APRN.JEWELRY SALES ASSOCIATE Service: ? Author Type: Nurse Practitioner Type: Progress Notes Filed: 03/29/2024 13:27 Note Text: This note was created using NoteWriter. Subjective Tamy Vazquez is a 43 year [...] history is provided by the patient. 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) with ILD raynauds Endometriosis, site unspecified Endometriosis Esophageal reflux hx of low vitamin D recheck normal Hyperparathyroidism ([facility]) 2014 parathyroidectomy Menorrhagia fibroids UFE Nephrolithiasis Osteoporosis 05/2022 with LOSS T-score -3.0 08/2022 nl urine calcium 260 Peripheral vascular disease ([facility]) Personal history of unspecified urinary disorder PMH - PAST MEDICAL HISTORY OF 04/18/2005 blood clot internal jugular vein, 4 weeks diagnosed Protein S deficiency ([facility]) 05/19/2002 cavernous sinus thrombosis 4 week Raynaud's syndrome CTD plaquenil Rib fracture 06/19/2014 Seasonal allergies Uterine fibroid s/p UFE PAST SURGICAL HISTORY Procedure Laterality Date EMBOLIZATION UTERINE FIBROID 03/18/2013 LAPAROSCOPIC APPENDECTOMY 03/30/2021 LAPS ABD PRTMANDOMENTUM DX W/WO SPEC BR/WA SPX 04/18/2004 Laparoscopy for endometriosis at [place] [address] [facility] at [facility], no control afterward, ++relief and [...] and chest ti (more content not included)... [facility] 03-29-2024 History of Present illness Narrative This note was created using Edinburgh Roboticsriter. Subjective Tamy Vazquez is a 43 year [...] history is provided by the patient. 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 Musculoskeletal Problem This is a [...] BR/WA SPX 04/18/2004 Laparoscopy for endometriosis at [place] [address] [facility] at [facility], no control afterward, ++relief and [...] soapy soaks F/u with podiatry Madison Medina APRN.JEWELRY SALES ASSOCIATE documented in this encounter [facility] 03-05-2024 Note HNO ID: [id number] Author: ALAN RENE MD Service: ? Author Type: Physician Type: Progress Notes Filed: 03/05/2024 16:11 Note Text: Respiratory [place] Tamy Vazquez is a 43 year old female here for a follow up with the [facility] Interstitial Lung Disease Team. HISTORY OF PRESENT [...] of low vitamin D recheck normal Hyperparathyroidism ([facility]) 2014 parathyroidectomy Menorrhagia fibroids UFE Nephrolithiasis Osteoporosis [...] BR/WA SPX 04/18/2004 Laparoscopy for endometriosis at [place] [address] [facility] at [facility], no control afterward, ++relief and [...] Son ALLERGIES Allergen Reactions Amerigel [Zinc Acet* Loa burning at area Cefdinir Other: See Comments [...] REVIEWED (independently reviewed by myself) alled outside grain weigher (Dr. 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 September 2020-cbc and hepatic wnl Pulmonary Function Data PFT available: Yes. PFT results Outside hospital-mar 2020 fvc-50%-1.85liters fev1-51% dlco -61%. pfts-november 2020 fvc-1.98 liters (53%)-dlco 49% pfts-may 2021 fvc-2.04 liters--65% dlco-55% PFT--September 2021-- fvc-1.73 liters-47% dlco-43% PFT--Aug (more content not included)... [facility] 03-05-2024 History of Present illness Narrative Images from the original note were not included. [facility] [place] Tamy Vazquez is a 43 year old female here for a follow up with the [facility] Interstitial Lung Disease Team. HISTORY OF PRESENT [...] BR/WA SPX 04/18/2004 Laparoscopy for endometriosis at [place] [address] [place] at [facility], no control afterward, ++relief and [...] Son ALLERGIES Allergen Reactions Amerigel [Zinc Acet* Loa burning at area Cefdinir Other: See Comments [...] Cor-rrr DATA REVIEWED (independently reviewed by myself) josr outside grain weigher (Dr. 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 September 2020-cbc and hepatic [...] scan available?: Standard CT available Reviewed by wv-mar 2020--fibrotic disease predominantly bases--UIP type pattern Enlarged [...] which included preparing to see the patient, jmof-hl-ougy patient care, completing clinical documentation, obtaining and/or reviewing separately obtained history, performing a medically appropriate examination, counseling and educating the patient/family/caregiver, ordering medications, tests, or procedures, communicating with other HCPs (not separately reported), independently interpreting results (not separately reported), communicating results to the patient/family/caregiver, care coordination (not separately reported), and time excludes procedure . CC: documented in this encounter [facility] 03-05-2024 Note HNO ID: [id number] Author: ROSHNI JOHNSTON RRT Service: ? Author Type: Stock Handler Type: Progress Notes Filed: 03/05/2024 15:09 Note Text: PULM FUNCTION: Provider: Alan Rene MD Spirometry: 1 DLCO: 1 [place] [id number] History of Present illness Narrative PULM FUNCTION: Provider: Alan Rene MD Spirometry: 1 DLCO: 1 documented in this encounter [facility] 10-25-2023 Telephone encounter Note New order placed for Reclast. [facility] 10-25-2023 Miscellaneous Notes New order placed for Reclast. Pharmacist sent a referral request for an Rx for more Orders Pt is scheduled for a Reclast on 10/27/2023. Please add order to the CAM for additional injections. Daniel Li MA October 21, 2023 3:49 PM documented in this encounter [facility] 10-21-2023 Telephone encounter Note Pharmacist sent a referral request for an Rx for more Orders Pt is scheduled for a Reclast on 10/27/2023. Please add order to the CAM for additional injections. Daniel Li MA October 21, 2023 3:49 PM [facility] 10-21-2023 Telephone encounter Note [facility] 09-21-2023 History of Present illness Narrative Subjective [...] by mouth once daily. inhalational spacing device ([facility]) inhaler Use as instructed 1 each [...] for coumadin f/u documented in this encounter [facility] Work Phone: 09-01-2023 Telephone encounter Note Labs from 08/30/2023 reviewed. Vitamin D level 35.8, stable. Calcium 9.3. BUN/creatinine normal, 11 and 0.76. PTH level was not done, canceled by lab? Prior PTH was 21 on 02/21/2023. Plan: To call patient, labs stable. Reclast infusion ordered; [facility] She can schedule at her convenience. [facility] 09-01-2023 Miscellaneous Notes Labs from 08/30/2023 reviewed. Vitamin D level 35.8, stable. Calcium 9.3. BUN/creatinine normal, 11 and 0.76. PTH level was not done, canceled by lab? Prior PTH was 21 on 02/21/2023. Plan: To call patient, labs stable. Reclast infusion ordered; [facility] She can schedule at her convenience. documented in this encounter [facility] 08-31-2023 History of Present illness Narrative PULM FUNCTION SMARTBLOCK: Provider: Alan Rene MD Spirometry: 1 DLCO: 1 documented in this encounter [facility] 08-31-2023 History of Present illness Narrative Images from the original note were not included. [facility] [place] Tamy Vazquez is a 43 year old female here for a follow up with the [facility] Interstitial Lung Disease Team. HISTORY OF PRESENT [...] BR/WA SPX 04/18/2004 Laparoscopy for endometriosis at [place] [address] [facility] at [facility], no control afterward, ++relief and [...] Son ALLERGIES Allergen Reactions Amerigel [Zinc Acet* Loa burning at area Cefdinir Other: See Comments [...] Lungs-clear DATA REVIEWED (independently reviewed by myself) alled outside grain weigher (Dr. 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 September 2020-cbc and hepatic [...] which included preparing to see the patient, paya-qo-vjwc patient care, completing clinical documentation, obtaining and/or reviewing separately obtained history, performing a medically appropriate examination, counseling and educating the patient/family/caregiver, ordering medications, tests, or procedures, communicating with other HCPs (not separately reported), independently interpreting results (not separately reported), communicating results to the patient/family/caregiver, and care coordination (not separately reported). Alan Rene MD CC: documented in this encounter [facility] 08-17-2023 Telephone encounter Note We have been unable to reach your patient to schedule their testing. Test Name: FL esophagus barium swallow 1st Attempt: MyChart 2nd Attempt: tests done with [facility] 02/2023 11.8.23 no show/. cx defer [facility] 08-17-2023 Miscellaneous Notes We have been unable to reach your patient to schedule their testing. Test Name: FL esophagus barium swallow 1st Attempt: MyChart 2nd Attempt: tests done with [facility] 02/2023 11.8.23 no show//02.09.23 cx defer documented in this encounter [facility] 08-16-2023 History of Present illness Narrative Endocrinology Virtual Visit This is a virtual visit using 4vets Zoom Video Visit. It required patient-provider interaction for the medical decision making as documented below. I have communicated my name and active licensure. The patient's identity and physical location were verified at the time of this visit. Either the patient or their legal provider relations representative has been informed of the risks [...] 2013 for hyperparathyroidism; she was seen from [id number]. Then she started following with me for [...] disorder. She is on Plaquenil. Follows with grain weigher regularly. - She also has interstitial lung [...] of low vitamin D recheck normal Hyperparathyroidism ([facility]) 2014 parathyroidectomy Menorrhagia fibroids UFE Nephrolithiasis Osteoporosis [...] BR/WA SPX 04/18/2004 Laparoscopy for endometriosis at [place] [address] [facility] at [facility], no control afterward, ++relief and [...] visit. ALLERGIES Allergen Reactions Amerigel [Zinc Acet* Loa burning at area Cefdinir Other: See Comments [...] July 2014. PTH level was 17 in 2015 after surgery when it was 39 in [...] which included preparing to see the patient, kcwe-kn-ifch patient care, completing clinical documentation, counseling and educating the patient/family/caregiver, and ordering medications, tests, or procedures Lora Rodrigues MD documented in this encounter [facility] 07-29-2023 Miscellaneous Notes Tried to call pt and the vm was full so I could not leave a message. Sent response via [employer] Mona [email or web address] museum docent Will see on August 08 at 1 PM. Spoke with patient and she can only come in on and Mona [email or web address] museum docent Reviewed the message. Patient was last seen for [facility] appointment on 12/16/2022. Plan: Schedule follow-up appointment. Will order labs and then order Reclast after labs reviewed. -Can offer appointment on 08/03/2023 at 9:20 AM. documented in this encounter [facility] 03-30-2023 History of Present illness Narrative PULM FUNCTION SMARTBLOCK: Provider: Alan Rene MD Assisting Tech: Siobhan Cummins, GENETICS NURSE Spirometry: 1 DLCO: 1 documented in this encounter [facility] 03-30-2023 History of Present illness Narrative Images from the original note were not included. Respiratory [place] Tamy Vazquez is a 42 year old female here for a follow up with the [facility] Interstitial Lung Disease Team. HISTORY OF PRESENT [...] BR/WA SPX 04/18/2004 Laparoscopy for endometriosis at [place] [address] [facility] at [facility], no control afterward, ++relief and [...] Son ALLERGIES Allergen Reactions Amerigel [Zinc Acet* Loa burning at area Cefdinir Other: See Comments [...] REVIEWED (independently reviewed by myself) called outside grain weigher (Dr. 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 September 2020-cbc and hepatic [...] scan available?: Standard CT available Reviewed by w[facility]-mar 2020--fibrotic disease predominantly bases--UIP type pattern Enlarged [...] Rene MD CC: documented in this encounter [facility] 03-21-2023 Miscellaneous Notes Pt notified of results and provider message. Erica Tvaarez LPN Left message for patient to return call for results and recommendations.Kelli Monaco LPN \ No abnormal findings noted on x-ray. Orthopedic follow-up referral placed. Continue care plan as discussed. Ranjit Perera APRN.JEWELRY SALES ASSOCIATE documented in this encounter [facility] 02-23-2023 Miscellaneous Notes Done spoke with the patient.Patient verbalized understanding. Michelle Santoro LPN February 23, 2023 11:19 AM Labs done on 02/21/2023 reviewed. PTH level 21, normal. Vitamin D level 41, normal. Plan: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 or tocilizumab Will schedule Mony at [facility] Follow-up Dr. Rene as scheduled All questions were answered to Tamy Vazquez's satisfaction, Tamy Juarez Vazquez verbalizes understanding and agrees with treatment plan and was encouraged to contact me with questions Madison Weller APRN.JEWELRY SALES ASSOCIATE Staffed with Dr. Kacie De Luna I [...] Mony Ivey (tixagevimab/cilgavimab) Eligibility and Patient Discussion [facility] Formulary Restriction Criteria: Outpatient adults and pediatrics 12 years and older and > 40 kg with ALL of the following: [x] COVID test scheduled: No Date: , type of test:Home antigen [x] Patient has not been exposed to a SARS-COV-2 positive individual ([facility] information on COVID exposure link) [x] Patient [...] to proceeding with tixagevimab/cilgevimab treatment. Madison Weller APRN.JEWELRY SALES ASSOCIATE January 21, 2022 11:42 AM documented in this encounter [facility] 01-18-2022 History of Present illness Narrative Radiology [...] IV DATA: Not applicable SIGNED BY: RT Opal(Paul) January 18, 2022 1:02 PM documented in this encounter [facility] 12-30-2021 Instructions Candie Duron MD - 12/30/2021 10:[address] Joslyn Carrion documented in this encounter [facility] 12-30-2021 History of Present illness Narrative Supervisor Decorating offered: Patient declines. Dhaliwal is a 41 [...] and negative HPV Last mammogram: 10/2020 in Epic, she reports having one done a few months ago at outside location Sexually active: Yes Patient concerns for STD exposure: No. 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, no control afterward, ++relief and [...] external genitalia normal, normal Bartholin's glands, urethra, Vicco's glands, no vulvar lesions, no cervical lesions, [...] Candie Duron DO documented in this encounter [facility] 12-22-2021 History of Present illness Narrative VIRTUAL VISIT PROGRESS NOTE This is a virtual visit using 4vets video visit. It required patient-provider interaction for [...] W/WO BRUSHINGS/WASHINGS 04/18/2004 Laparoscopy for endometriosis at [place] [facility] Soliman at 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 September 2020-cbc and hepatic wnl Pulmonary Function Data PFT available: Yes. PFT results Outside hospital-mar 2020 fvc-50%-1.85liters fev1-51% dlco -61%. pfts-november 2020 fvc-1.98 liters (53%)-dlco 49% pfts-may 2021 fvc-2.04 liters--65% dlco-55% PFT--September 2021-- fvc-1.73 liters-47% dlco-43% PFT--November 2021- Fvc-1.99 (54%) Dlco--45% Six minute walk Six minute walk available: No Radiology Is a CT scan available?: Standard CT available Reviewed by [facility]-mar 2020--fibrotic disease predominantly bases--UIP type pattern Enlarged [...] Alan Rene MD documented in this encounter [facility] 12-14-2021 History of Present illness Narrative PULM FUNCTION SMARTBLOCK: Provider: Alan Rene MD Spirometry: 1 DLCO: 1 documented in this encounter [facility] 10-12-2021 History of Present illness Narrative Images from the original note were not included. Respiratory [place] Tamy Vazquez is a 41 year old female here for a follow up with the [facility] Interstitial Lung Disease Team. HISTORY OF PRESENT [...] W/WO BRUSHINGS/WASHINGS 04/18/2004 Laparoscopy for endometriosis at [place] [facility] Soliman at 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 September 2020-cbc and hepatic [...] Rene MD CC: documented in this encounter [facility] 08-10-2021 Miscellaneous Notes Patient called--out of imuran-leaving for cody huey Imuran refilled-patient notified documented in this encounter [facility] 05-09-2021 History of Present illness Narrative TAMY [...] on chart:contact use?:- yestreatment: none cold compress -[facility] Work Phone: 02-08-2018 History of Past i llness Narrative Problem Noted Date Resolved Date Metrorrhagia 02/08/2018 08/12/2022 Overview: Added automatically from request for surgery [id number] Pelvic pain in female 04/25/2013 12/29/2017 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 Phlebitis and thrombophlebitis of other site 08/12/2022 documented as of this encounter (statuses as of 08/12/2022) [facility] History of Past illness Narrative* Problem Noted Date Resolved Date Metrorrhagia 02/08/2018 08/12/2022 Overview: Added automatically from request for surgery [id number] Pelvic pain in female 04/25/2013 12/29/2017 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 Phlebitis and thrombophlebitis of other site 08/12/2022 documented as of this encounter (statuses as of 08/12/2022) [facility] History of Past illness Narrative* Problem Noted Date Resolved Date Metrorrhagia 02/08/2018 08/12/2022 Overview: Added automatically from request for surgery [id number] Pelvic pain in female 04/25/2013 12/29/2017 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 Phlebitis and thrombophlebitis of other site 08/12/2022 documented as of this encounter (statuses as of 08/26/2022) [facility] History of Past illness Narrative* Problem Noted Date Resolved Date Metrorrhagia 02/08/2018 08/12/2022 Overview: Added automatically from request for surgery [id number] Pelvic pain in female 04/25/2013 12/29/2017 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 Phlebitis and thrombophlebitis of other site 08/12/2022 documented as of this encounter (statuses as of 09/21/2022) [facility] History of Past illness Narrative* Problem Noted Date Resolved Date Metrorrhagia 02/08/2018 08/12/2022 Overview: Added automatically from request for surgery [id number] Pelvic pain in female 04/25/2013 12/29/2017 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 Phlebitis and thrombophlebitis of other site 08/12/2022 documented as of this encounter (statuses as of 10/22/2022) [facility]10-24-2018 History of Past illness Narrative* Problem Noted Date Resolved Date Metrorrhagia 02/08/2018 08/12/2022 Overview: Added automatically from request for surgery [id number] Pelvic pain in female 04/25/2013 12/29/2017 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 Phlebitis and thrombophlebitis of other site 08/12/2022 documented as of this encounter (statuses as of 10/22/2022) [facility]2018 History of Past illness Narrative* Problem Noted Date Diagnosed Date Resolved Date Metrorrhagia 02/08/2018 08/12/2022 Overview: Added automatically from request for surgery [id number] Pelvic pain in female 04/25/20132017 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/2008 1 06/08/2009 Phlebitis and thrombophlebitis of other site 8 08/12/2022 documented as of this encounter (statuses as of 11/12/2022) [facility]2018 History of Past illness Narrative* Problem Noted Date Diagnosed Date Resolved Date Metrorrhagia 02/08/2018 08/12/2022 Overview: Added automatically from request for surgery [id number] Pelvic pain in female 04/25/20132017 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/2008 1 06/08/2009 Phlebitis and thrombophlebitis of other site 8 08/12/2022 documented as of this encounter (statuses as of 12/13/2022) [facility]2018 History of Past illness Narrative* Problem Noted Date Diagnosed Date Resolved Date Metrorrhagia 02/08/2018 08/12/2022 Overview: Added automatically from request for surgery [id number] Pelvic pain in female 04/25/20132017 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/2008 1 06/08/2009 Phlebitis and thrombophlebitis of other site 8 08/12/2022 documented as of this encounter (statuses as of 12/14/2022) [facility]2018 History of Past illness Narrative* Problem Noted Date Diagnosed Date Resolved Date Metrorrhagia 02/08/2018 08/12/2022 Overview: Added automatically from request for surgery [id number] Pelvic pain in female 04/25/20132017 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/2008 1 06/08/2009 Phlebitis and thrombophlebitis of other site 8 08/12/2022 documented as of this encounter (statuses as of 12/16/2022) [facility]2018 History of Past illness Narrative* Problem Noted Date Diagnosed Date Resolved Date Metrorrhagia 02/08/2018 08/12/2022 Overview: Added automatically from request for surgery [id number] Pelvic pain in female 04/25/20132017 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/2008 1 06/08/2009 Phlebitis and thrombophlebitis of other site 8 08/12/2022 documented as of this encounter (statuses as of 02/20/2023) [facility]2018 History of Past illness Narrative* Problem Noted Date Diagnosed Date Resolved Date Metrorrhagia 02/08/2018 08/12/2022 Overview: Added automatically from request for surgery [id number] Pelvic pain in female 04/25/20132017 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/2008 1 06/08/2009 Phlebitis and thrombophlebitis of other site 8 08/12/2022 documented as of this encounter (statuses as of 02/20/2023) [facility]2018 History of Past illness Narrative* Problem Noted Date Diagnosed Date Resolved Date Metrorrhagia 02/08/2018 08/12/2022 Overview: Added automatically from request for surgery [id number] Pelvic pain in female 04/25/20132017 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/2008 1 06/08/2009 Phlebitis and thrombophlebitis of other site 8 08/12/2022 documented as of this encounter (statuses as of 02/23/2023) [facility]2018 History of Past illness Narrative* Problem Noted Date Diagnosed Date Resolved Date Metrorrhagia 02/08/2018 08/12/2022 Overview: Added automatically from request for surgery [id number] Pelvic pain in female 04/25/20132017 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/2008 1 06/08/2009 Phlebitis and thrombophlebitis of other site 8 08/12/2022 documented as of this encounter (statuses as of 02/23/2023) [facility]2018 History of Past illness Narrative* Problem Noted Date Diagnosed Date Resolved Date Metrorrhagia 02/08/2018 08/12/2022 Overview: Added automatically from request for surgery [id number] Pelvic pain in female 04/25/20132017 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/2008 1 06/08/2009 Phlebitis and thrombophlebitis of other site 8 08/12/2022 documented as of this encounter (statuses as of 02/23/2023) [facility]2018 History of Past illness Narrative* Problem Noted Date Diagnosed Date Resolved Date Metrorrhagia 02/08/2018 08/12/2022 Overview: Added automatically from request for surgery [id number] Pelvic pain in female 04/25/20132017 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/2008 1 06/08/2009 Phlebitis and thrombophlebitis of other site 8 08/12/2022 documented as of this encounter (statuses as of 02/24/2023) [facility]2018 History of Past illness Narrative* Problem Noted Date Diagnosed Date Resolved Date Metrorrhagia 02/08/2018 08/12/2022 Overview: Added automatically from request for surgery [id number] Pelvic pain in female 04/25/20132017 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/2008 1 06/08/2009 Phlebitis and thrombophlebitis of other site 8 08/12/2022 documented as of this encounter (statuses as of 03/22/2023) [facility]2018 History of Past illness Narrative* Problem Noted Date Diagnosed Date Resolved Date Metrorrhagia 02/08/2018 08/12/2022 Overview: Added automatically from request for surgery [id number] Pelvic pain in female 04/25/20132017 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/2008 1 06/08/2009 Phlebitis and thrombophlebitis of other site 8 08/12/2022 documented as of this encounter (statuses as of 03/31/2023) [facility]2018 History of Past illness Narrative* Problem Noted Date Diagnosed Date Resolved Date Metrorrhagia 02/08/2018 08/12/2022 Overview: Added automatically from request for surgery [id number] Pelvic pain in female 04/25/20132017 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/2008 1 06/08/2009 Phlebitis and thrombophlebitis of other site 8 08/12/2022 documented as of this encounter (statuses as of 03/31/2023) [facility]2018 History of Past illness Narrative* Problem Noted Date Diagnosed Date Resolved Date Metrorrhagia 02/08/2018 08/12/2022 Overview: Added automatically from request for surgery [id number] Pelvic pain in female 04/25/20132017 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/2008 1 06/08/2009 Phlebitis and thrombophlebitis of other site 8 08/12/2022 documented as of this encounter (statuses as of 07/29/2023) [facility]2014 History of Past illness Narrative* Problem Noted Date Resolved Date Pelvic pain in female 04/25/2013 12/29/2017 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 documented as of this encounter (statuses as of 08/11/2021) [facility]2014 History of Past illness Narrative* Problem Noted Date Resolved Date Pelvic pain in female 04/25/2013 12/29/2017 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 documented as of this encounter (statuses as of 08/11/2021) [facility] History of Past illness Narrative* Problem Noted Date Resolved Date Pelvic pain in female 04/25/2013 12/29/2017 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 documented as of this encounter (statuses as of 08/11/2021) [facility] History of Past illness Narrative* Problem Noted Date Resolved Date Pelvic pain in female 04/25/2013 12/29/2017 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 documented as of this encounter (statuses as of 10/12/2021) [facility] History of Past illness Narrative* Problem Noted Date Resolved Date Pelvic pain in female 04/25/2013 12/29/2017 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 documented as of this encounter (statuses as of 12/14/2021) [facility] History of Past illness Narrative* Problem Noted Date Resolved Date Pelvic pain in female 04/25/2013 12/29/2017 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 documented as of this encounter (statuses as of 12/22/2021) [facility] History of Past illness Narrative* Problem Noted Date Resolved Date Pelvic pain in female 04/25/2013 12/29/2017 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 documented as of this encounter (statuses as of 12/30/2021) [facility] History of Past illness Narrative* Problem Noted Date Resolved Date Pelvic pain in female 04/25/2013 12/29/2017 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 documented as of this encounter (statuses as of 01/19/2022) [facility] History of Past illness Narrative* Problem Noted Date Resolved Date Pelvic pain in female 04/25/2013 12/29/2017 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 documented as of this encounter (statuses as of 01/22/2022) [facility] History of Past illness Narrative* Problem Noted Date Resolved Date Pelvic pain in female 04/25/2013 12/29/2017 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 documented as of this encounter (statuses as of 02/15/2022) [facility] History of Past illness Narrative* Problem Noted Date Resolved Date Pelvic pain in female 04/25/2013 12/29/2017 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 documented as of this encounter (statuses as of 02/17/2022) [facility] History of Past illness Narrative* Problem Noted Date Resolved Date Pelvic pain in female 04/25/2013 12/29/2017 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 documented as of this encounter (statuses as of 02/18/2022) [facility] History of Past illness Narrative* Problem Noted Date Resolved Date Pelvic pain in female 04/25/2013 12/29/2017 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 documented as of this encounter (statuses as of 03/14/2022) [facility]2014 History of Past illness Narrative* Problem Noted Date Resolved Date Pelvic pain in female 04/25/2013 12/29/2017 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 documented as of this encounter (statuses as of 05/26/2022) [facility]2014 History of Past illness Narrative* Problem Noted Date Resolved Date Pelvic pain in female 04/25/2013 12/29/2017 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 documented as of this encounter (statuses as of 06/01/2022) [facility] History of Past illness Narrative* Problem Noted Date Resolved Date Pelvic pain in female 04/25/2013 12/29/2017 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 documented as of this encounter (statuses as of 06/01/2022) [facility] History of Past illness Narrative* Problem Noted Date Resolved Date Pelvic pain in female 04/25/2013 12/29/2017 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 documented as of this encounter (statuses as of 06/16/2022) [facility] History of Past illness Narrative* Problem Noted Date Resolved Date Pelvic pain in female 04/25/2013 12/29/2017 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 documented as of this encounter (statuses as of 06/17/2022) [facility] History of Past illness Narrative* Problem Noted Date Resolved Date Pelvic pain in female 04/25/2013 12/29/2017 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 documented as of this encounter (statuses as of 06/18/2022) [facility] History of Past illness Narrative* Problem Noted Date Resolved Date Pelvic pain in female 04/25/2013 12/29/2017 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 documented as of this encounter (statuses as of 06/19/2022) [facility] History of Past illness Narrative* Problem Noted Date Resolved Date Pelvic pain in female 04/25/2013 12/29/2017 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 documented as of this encounter (statuses as of 06/22/2022) [facility] History of Past illness Narrative* Problem Noted Date Resolved Date Pelvic pain in female 04/25/2013 12/29/2017 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 documented as of this encounter (statuses as of 06/23/2022) [facility] History of Past illness Narrative* Problem Noted Date Resolved Date Pelvic pain in female 04/25/2013 12/29/2017 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 documented as of this encounter (statuses as of 06/30/2022) [facility] History of Past illness Narrative* Problem Noted Date Resolved Date Pelvic pain in female 04/25/2013 12/29/2017 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 documented as of this encounter (statuses as of 07/22/2022) [facility] History of Past illness Narrative* Problem Noted Date Resolved Date Pelvic pain in female 04/25/2013 12/29/2017 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 documented as of this encounter (statuses as of 08/10/2022) [facility] [place] [facility] Diagnosis ILD (interstitial lung disease) (HCC)- Primary Postinflammatory pulmonary fibrosis Abnormal PFTs Nonspecific abnormal results of pulmonary system function study [facility] this encounter [facility] [place] [facility] Diagnosis ILD (interstitial lung disease) (HCC) Postinflammatory pulmonary [facility] (interstitial lung disease) (HCC) Postinflammatory pulmonary fibrosis [facility] ILD (interstitial lung disease) (HCC)- Primary Postinflammatory pulmonary fibrosis Interstitial pulmonary disease (HCC) Postinflammatory pulmonary fibrosis [facility] Encounter for gynecological examination (general) (routine) without abnormal findings- Primary Encounter for screening mammogram for breast cancer Dense breast tissue on mammogram Premature ovarian insufficiency [facility] Diagnosis Interstitial pulmonary disease (HCC) Postinflammatory pulmonary fibrosis documented in this encounter [facility] note* Diagnosis ILD (interstitial lung disease) (HCC)- Primary Postinflammatory pulmonary fibrosis MCTD (mixed connective tissue disease) (HCC) Other specified diffuse disease of connective tissue Systemic lupus erythematosus with lung involvement, unspecified SLE type (HCC) Encounter for prophylactic measures, unspecified documented in this encounter [facility] note* Diagnosis Premature ovarian insufficiency- Primary documented in this encounter [facility] note* Diagnosis Contusion of left lower leg, initial encounter- Primary History of blood clots Personal history of venous thrombosis and embolism documented in this encounter [facility] note* Diagnosis ILD (interstitial lung disease) (HCC)- Primary Postinflammatory pulmonary fibrosis documented in this encounter [facility] note* Diagnosis Encounter for screening for osteoporosis- Primary Special screening for osteoporosis documented in this encounter [facility] note* Diagnosis ILD (interstitial lung disease) (HCC)- Primary Postinflammatory pulmonary fibrosis documented in this encounter [facility] note* Diagnosis ILD (interstitial lung disease) (HCC)- Primary Postinflammatory pulmonary fibrosis documented in this encounter [facility] note* Diagnosis ILD (interstitial lung disease) (HCC)- Primary Postinflammatory pulmonary fibrosis documented in this encounter [facility] note* Diagnosis Neck pain- Primary Cervicalgia Premature ovarian failure- Primary Other ovarian dysfunction Hormone replacement therapy (HRT) Need for prophylactic hormone replacement therapy (postmenopausal) Encounter for screening mammogram for malignant neoplasm of breast Other screening mammogram Blood clotting disorder (HCC) Other and unspecified coagulation defects Osteoporosis, unspecified osteoporosis type, unspecified pathological fracture presence documented in this encounter [facility] noteNo assessment information availableWParkview [facility] Work [facility]: [facility] note* Diagnosis Vitamin [...] pathological fracture presence documented in this encounter [facility] note* Diagnosis Jaw pain- Primary Premature ovarian failure- Primary Other ovarian dysfunction Hormone replacement therapy (HRT) Need for prophylactic hormone replacement therapy (postmenopausal) Encounter for screening mammogram for malignant neoplasm of breast Other screening mammogram Blood clotting disorder (HCC) Other and unspecified coagulation defects Osteoporosis, unspecified osteoporosis type, unspecified pathological fracture presence [facility] [place] [facility] Diagnosis NS same day pt cx- Primary Hormone replacement therapy (HRT) Need for prophylactic hormone replacement therapy (postmenopausal) Encounter for screening mammogram for malignant neoplasm of breast Other screening mammogram Premature ovarian failure Other ovarian dysfunction Blood clotting disorder (HCC) Other and unspecified coagulation defects Osteoporosis, unspecified osteoporosis type, unspecified pathological fracture presence [facility] [place] [facility]* Diagnosis Osteoporosis without current pathological fracture, unspecified osteoporosis type documented in this encounter [facility] Work Phone: Evaluation note* Diagnosis POI [...] disease of connective tissue Interstitial lung disease (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 Personal history of venous thrombosis and embolism Protein S deficiency (HCC) Primary hypercoagulable state hx of RUE DVT in setting of Protein S deficiency lifelong coumadin Hormone replacement therapy (HRT) Need for prophylactic hormone replacement therapy (postmenopausal) Uterine leiomyoma, unspecified location Chronic anticoagulation Long-term (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 of anticoagulants [facility] [place] [facility]* Diagnosis Encounter for gynecological examination (general) (routine) without abnormal findings- Primary Encounter for screening mammogram for malignant neoplasm of breast Other screening mammogram Screening for cervical cancer Screening for malignant neoplasm of the cervix [facility] [place] [facility]* Diagnosis Osteoporosis without current pathological fracture, unspecified osteoporosis type- Primary documented in this encounter [facility] note* Diagnosis ILD (interstitial lung disease) ([facility])- Primary Postinflammatory pulmonary fibrosis [facility] [place] [facility]* Diagnosis Sinus congestion- Primary Other diseases of nasal cavity and sinuses Fever, unspecified fever cause Hyperparathyroidism (CMS/HCC) Hyperparathyroidism, unspecified documented in this encounter [facility] Work Phone: Evaluation note* Diagnosis ILD (interstitial lung disease) (HCC)- Primary Postinflammatory pulmonary fibrosis documented in this encounter [facility] note* Diagnosis ILD (interstitial lung disease) (HCC)- Primary Postinflammatory pulmonary fibrosis documented in this encounter [facility] note* Diagnosis ILD (interstitial lung disease) (HCC)- Primary Postinflammatory pulmonary fibrosis documented in this encounter [facility] note* Diagnosis ILD (interstitial lung disease) (HCC)- Primary Postinflammatory pulmonary fibrosis documented in this encounter [facility] note* Diagnosis Osteoporosis without current pathological fracture, unspecified osteoporosis type- Primary Vitamin D deficiency Unspecified vitamin D deficiency History of parathyroid surgery Other postprocedural status documented in this encounter [facility] note* Diagnosis Wheezing- Primary SOB (shortness of breath) Shortness of breath Abnormal chest x-ray Nonspecific (abnormal) findings on radiological and other examination of lung field Pneumonitis Pneumonia, organism unspecified Bronchiectasis with acute exacerbation (CMS/HCC) Bronchiectasis with acute exacerbation Cough, unspecified type documented in this encounter [facility] Work Phone: Evaluation note* Diagnosis Interstitial pulmonary disease (HCC) Postinflammatory pulmonary fibrosis documented in this encounter [facility] note* Diagnosis Encounter for screening for osteoporosis Special screening for osteoporosis Hyperparathyroidism (HCC) Hyperparathyroidism, unspecified documented in this encounter [facility] note* Diagnosis Dysphagia, unspecified type- Primary documented in this encounter [facility] note* Diagnosis ILD (interstitial lung disease) (HCC) Postinflammatory pulmonary fibrosis documented in this encounter [facility] note* Diagnosis ILD (interstitial lung disease) (HCC) Postinflammatory pulmonary fibrosis documented in this encounter [facility] note* Diagnosis ILD (interstitial lung disease) (HCC)- Primary Postinflammatory pulmonary fibrosis documented in this encounter [facility] note* Diagnosis Gastro-esophageal reflux disease without esophagitis- Primary Other primary thrombophilia (HCC) terminal carman (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 of anticoagulants Long-term (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 of anticoagulants documented in this encounter [facility] note* Diagnosis Osteoporosis without current pathological fracture, unspecified osteoporosis type- Primary Vitamin D deficiency Unspecified vitamin D deficiency History of parathyroid surgery Other postprocedural status documented in this encounter [facility] note* Diagnosis ILD (interstitial lung disease) (HCC)- Primary Postinflammatory pulmonary fibrosis documented in this encounter [facility] note* Diagnosis ILD (interstitial lung disease) (HCC)- Primary Postinflammatory pulmonary fibrosis documented in this encounter [facility] note* Diagnosis ILD (interstitial lung disease) (HCC)- Primary Postinflammatory pulmonary fibrosis documented in this encounter [facility] note* Diagnosis Osteoporosis without current pathological fracture, unspecified osteoporosis type- Primary documented in this encounter [facility] note* Diagnosis Encounter for annual general [...] neoplasm of breast documented in this encounter [facility] Work Phone: Evaluation note* Diagnosis Osteoporosis without current pathological fracture, unspecified osteoporosis type- Primary documented in this encounter [facility] note* Diagnosis Osteoporosis without current pathological fracture, unspecified osteoporosis type- Primary documented in this encounter [facility] note* Diagnosis Osteoporosis without current pathological fracture, unspecified osteoporosis type- Primary documented in this encounter [facility] note* Diagnosis Nasal crusting- Primary Other diseases of nasal cavity and sinuses Rib fracture Closed fracture of rib(s), unspecified Acute pain of left shoulder documented in this encounter [facility] note* Diagnosis Nasal crusting- Primary Other diseases of nasal cavity and sinuses Rib fracture Closed fracture of rib(s), unspecified ILD (interstitial lung disease) (HCC)- Primary Postinflammatory pulmonary fibrosis documented in this encounter [facility] note* Diagnosis Nasal crusting- Primary Other diseases of nasal cavity and sinuses Rib fracture Closed fracture of rib(s), unspecified ILD (interstitial lung disease) (HCC)- Primary Postinflammatory pulmonary fibrosis [facility] Diagnosis Nasal crusting- Primary Other diseases of nasal cavity and sinuses Rib fracture Closed fracture of rib(s), unspecified Need for influenza vaccination- Primary Need for prophylactic vaccination and inoculation against influenza ILD (interstitial lung disease) (HCC) Postinflammatory pulmonary fibrosis [facility] Diagnosis Nasal crusting- Primary Other diseases of nasal cavity and sinuses Rib fracture Closed fracture of rib(s), unspecified Ingrown toenail- Primary Ingrowing nail Pain of right great toe [facility]* Diagnosis Secondary hypercoagulable state (CMS/HCC)- Primary [...] nonspecific skin eruption documented in this encounter [facility] Work Phone: Evaluation note* Diagnosis Tongue coating- Primary Hypertrophy of tongue papillae Pharyngitis, unspecified etiology Lymphadenopathy of head and neck Rash Rash and other nonspecific skin eruption documented in this encounter [facility] Work Phone: Evaluation note* Diagnosis Lymphadenopathy of head and neck- Primary Rash Rash and other nonspecific skin eruption documented in this encounter [facility] Work Phone: Evaluation note* Diagnosis Coated [...] findings in adult documented in this encounter [facility] Work Phone: Evaluation note* Diagnosis Coated [...] neoplasm of breast documented in this encounter [facility] Work Phone: Evaluation note* Diagnosis Coated [...] Abnormal mammogram, unspecified documented in this encounter [facility] Work Phone: Evaluation note* Diagnosis Coated [...] tissues of limb documented in this encounter [facility] Work Phone: Evaluation note* Diagnosis Nasal crusting- Primary Other diseases of nasal cavity and sinuses Rib fracture Closed fracture of rib(s), unspecified ILD (interstitial lung disease) (HCC)- Primary Postinflammatory pulmonary fibrosis [facility] [place] [facility]* Diagnosis Nasal crusting- Primary Other diseases of nasal cavity and sinuses Rib fracture Closed fracture of rib(s), unspecified ILD (interstitial lung disease) (HCC)- Primary Postinflammatory pulmonary fibrosis [facility] [place] [facility]* Diagnosis Nasal crusting- Primary Other diseases of nasal cavity and sinuses Rib fracture Closed fracture of rib(s), unspecified Pulmonary arterial hypertension (HCC)- Primary Other chronic pulmonary heart diseases Pulmonary hypertension (HCC) Other chronic pulmonary heart diseases Mixed connective tissue disease (HCC) Other specified diffuse disease of connective tissue [facility] [place] [facility]* Diagnosis Nasal crusting- Primary Other diseases of nasal cavity and sinuses Rib fracture Closed fracture of rib(s), unspecified Osteoporosis without current pathological fracture, unspecified osteoporosis type- Primary Vitamin D deficiency Unspecified vitamin D deficiency History of parathyroid surgery Other postprocedural status documented [facility] this [facility] [place] [facility]* Diagnosis Nasal crusting- Primary Other diseases of nasal cavity and sinuses Rib fracture Closed fracture of rib(s), unspecified Osteoporosis without current pathological fracture, unspecified osteoporosis type- Primary [facility] [place] [facility]* Diagnosis Nasal crusting- Primary Other diseases of nasal cavity and sinuses Rib fracture Closed fracture of rib(s), unspecified Encounter for gynecological examination (general) (routine) without abnormal findings- Primary Encounter for screening mammogram for breast cancer [facility] Diagnosis Nasal crusting- Primary Other diseases of nasal cavity and sinuses Rib fracture Closed fracture of rib(s), unspecified Osteoporosis without current pathological fracture, unspecified osteoporosis type- Primary documented [facility] [place] [facility]* Diagnosis Coated tongue- Primary Hypertrophy of [...] pulmonary fibrosis Wheezing documented in this encounter [facility] Work Phone: Evaluation note* Diagnosis Coated tongue- Primary Hypertrophy of tongue papillae Encounter for screening mammogram for malignant neoplasm of breast Other osteoporosis without current pathological fracture Anxiety Anxiety state, unspecified Anemia, unspecified type Sore throat Acute pharyngitis Blood clotting disorder (HHS-HCC) Other and unspecified coagulation defects MCTD (mixed connective tissue disease) (HHS-HCC) Other specified diffuse disease of connective tissue [...] abnormal glucose MCTD (mixed connective tissue disease) ([facility]) Other specified diffuse disease of connective tissue Hypercoagulable state, secondary (Multi) Secondary hypercoagulable state Psoriasis Other psoriasis ILD (interstitial lung disease) (Multi) Postinflammatory pulmonary fibrosis Wheezing Left lateral abdominal pain- Primary Nausea Nausea alone Diarrhea of presumed infectious origin Left lower quadrant abdominal tenderness with rebound tenderness Other iron deficiency anemia documented in this encounter [facility] Work Phone: Evaluation note* Diagnosis Coated tongue- Primary Hypertrophy of tongue papillae Encounter for screening mammogram for malignant neoplasm of breast Other osteoporosis without current pathological fracture Anxiety Anxiety state, unspecified Anemia, unspecified type Sore throat Acute pharyngitis Blood clotting disorder ([facility]-HCC) Other and unspecified coagulation defects MCTD (mixed connective tissue disease) ([facility]-HCC) Other specified diffuse disease of connective tissue [...] abnormal glucose MCTD (mixed connective tissue disease) ([facility]-HCC) Other specified diffuse disease of connective tissue Hypercoagulable state, secondary (Multi) Secondary hypercoagulable state Psoriasis Other psoriasis ILD (interstitial lung disease) (Multi) Postinflammatory pulmonary fibrosis Wheezing Left lateral abdominal pain- Primary Nausea Nausea alone Diarrhea of presumed infectious origin Left lower quadrant abdominal tenderness with rebound tenderness Other iron deficiency anemia Psoriasis Other psoriasis documented in this encounter [facility] Work Phone: History of Present illness NarrativeHas acne hormonal. has a rash on her right breast.[employer] Work Phone: History of Present illness NarrativeHas acne hormonal. has a rash on her right breast.[employer] Work Phone: History of Present illness Narrative* This is a 40-year-old female who is here today with concerns about acne due to hormonal changes. She is going through menopause and ever since then she has had cystic acne which does not seem to be going away. Has autoimmune disease who she is seeing a grain weigher and charge accounts audit clerk and an transformer tester for. She has secondary hypercoagulable state possibly [...] on her left thigh. No other complaints. [employer] Work Phone: History of Present illness Narrative* [...] * Recent out of country travel: Negative [facility] Work Phone: History of Present illness Narrative* [...] * Recent out of country travel: Negative [facility] Work Phone: History of Present illness Narrative* [...] * Recent out of country travel: Negative [facility] [employer] Work Phone: History of Present illness Narrative* This is a 40-year-old female who is here today with concerns about acne due to hormonal changes. She is going through menopause and ever since then she has had cystic acne which does not seem to be going away. Has autoimmune disease who she is seeing a grain weigher and charge accounts audit clerk and an transformer tester for. She has secondary hypercoagulable state possibly [...] on her left thigh. No other complaints. [facility] Work Phone: Hospital Discharge instructions Additional Instructions Please perform gentle stretching, ice and heat, use Tylenol. You may use Flexeril however use it at nighttime secondary to sedating effects.[facility] Work Phone: Reason for referral (narrative)* Outpatient Procedure (Routine) - Authorized Specialty Diagnoses / Procedures Referred By Leti tse Referred To Contact [facility] Diagnoses ILD (interstitial lung disease) (HCC) Procedures SPIROMETRY BASELINE ONLY SPMTRY W/VC EXPIRATORY SHALA W/WO MXML VOL VNTJ Alan Rene MD [address] [place] [address] [place] [address] Referral ID Status Reason Start Date Expiration Date Visits Requested Visits Authorized [id number] Authorized Auto-Generat ed Referral 10/12/2021 11/11/2022 1 1 * Outpatient Procedure (Routine) - Authorized Specialty Diagnoses / Procedures Referred By Leti tse Referred To Contact [facility] Diagnoses ILD (interstitial lung disease) (HCC) Procedures LUNG DIFFUSION CAPACITY (DLCO) DIFFUSING CAPACITY Alan Rene MD [address] [place] [address] [place] [address] Referral ID Status Reason Start Date Expiration Date Visits Requested Visits Authorized [id number] Authorized Auto-Generat ed Referral 10/12/2021 11/11/2022 1 1 [facility] for referral (narrative)* Outpatient Procedure (Routine) - Pending Review Specialty Diagnoses / Procedures Referred By Leti tse Referred To Contact [facility] Diagnoses ILD (interstitial lung disease) (HCC) Interstitial pulmonary disease (HCC) Procedures ECHO ECHO TTHRC R-T 2D W/WOM-MODE COMPL SPEC&COLR D Alan Rene MD [address] [place] [address] [facility] [address] [place] [address] Referral ID Status Reason Start Date Expiration Date Visits Requested Visits Authorized [id number] Pending Review Auto-Generat ed Referral 12/22/2021 12/22/2022 1 1 * MRI/CT (Routine) - Pending Review Specialty Diagnoses / Procedures Referred By Leti tse Referred To Contact CT IMAGING Diagnoses Interstitial pulmonary disease (HCC) Procedures CT CHEST WO IVCON DIAGNOSTIC COMPUTED TOMOGRAPHY THORAX W/O CNTRST Alan Rene MD [address] [place] [address] Ct Imaging Referral ID Status Reason Start Date Expiration Date Visits Requested Visits Authorized [id number] Pending Review Auto-Generat ed Referral 12/22/2021 01/21/2023 1 1 [facility] for referral (narrative)* Outpatient Procedure (Urgent) - Closed Specialty Diagnoses / Procedures Referred By Leti tse Referred To Contact [facility] [place] Diagnoses Contusion of left lower leg, initial encounter History of blood clots Procedures US LEG VEIN DVT UNL VAS LAB DUP-SCAN XTR VEINS UNILATERAL/LIMITED STUDY Moris Bernstein APRN.CNP [address] [place] [address] [facility] [place] [address] [place] [address] Referral ID Status Reason Start Date Expiration Date V isits Requested Visits Authorized [id number] Closed Auto-Generate d Referral 02/17/2022 02/17/2023 1 1 [facility] Outpatient Procedure (Routine) - Pending Review Specialty Diagnoses / Procedures Referred By Contac t Referred To [facility] RESPIRATORY [place] Diagnoses ILD (interstitial lung disease) (HCC) Procedures SPIROMETRY BASELINE ONLY SPMTRY W/VC EXPIRATORY SHALA W/WO MXML VOL VNTJ Alan Rene MD [address] [place] [address] [facility] [place] [address] Referral ID Status Reason Start Date Expiration Date Visits Requested Visits Authorized [id number] Pending Review Auto-Generat ed Referral 2 04/13/2023 1 1 * Outpatient Procedure (Routine) - Pending Review Specialty Diagnoses / Procedures Referred By Contac t Referred To [facility] RESPIRATORY [place] Diagnoses ILD (interstitial lung disease) ([facility]) Procedures LUNG DIFFUSION CAPACITY (DLCO) DIFFUSING CAPACITY Alan Rene MD [address] [place] [address] [facility] [address] [place] [address] Referral ID Status Reason Start Date Expiration Date Visits Requested Visits Authorized [id number] Pending Review Auto-Generat ed Referral 2 04/13/2023 1 1 [facility] for referral (narrative)* Outpatient Procedure (Routine) - Authorized Specialty Diagnoses / Procedures Referred By Contac t Referred To [facility]ORY [place] Diagnoses ILD (interstitial lung disease) (HCC) Procedures SPIROMETRY BASELINE ONLY SPMTRY W/VC EXPIRATORY SHALA W/WO MXML VOL Alan Centeno MD [address] [place] [address] [facility] [address] [place] [address] Referral ID Status Reason Start Date Expiration Date Visits Requested Visits Authorized [id number] Authorized Auto-Generat ed Referral 06/01/2022 07/01/2023 1 1 * Outpatient Procedure (Routine) - Authorized Specialty Diagnoses / Procedures Referred By Leti tse Referred To Contact [facility] Diagnoses ILD (interstitial lung disease) (HCC) Procedures LUNG DIFFUSION CAPACITY (DLCO) DIFFUSING CAPACITY Alan Rene MD [address] [place] [address] [facility] [place] [address] [place] [address] Referral ID Status Reason Start Date Expiration Date Visits Requested Visits Authorized [id number] Authorized Auto-Generat ed Referral 06/01/2022 07/01/2023 1 1 [facility] for referral (narrative)* Diagnostic Procedure Only (Routine) - Pending Review Specialty Diagnoses / Procedures Referred By Leti tse Referred To Contact BR IMAGING Diagnoses Encounter for screening mammogram for malignant neoplasm of breast Procedures GEM SCREENING SCREENING MAMMOGRAPHY BI 2-VIEW BREAST INC CAD Joslyn Carrion MD [address] [place] [address] [facility] [address] [place] [address] Referral ID Status Reason Start Date Expiration Date Visits Requested Visits Authorized [id number] Pending Review Auto-Generat ed Referral 06/23/2022 07/15/2023 1 1 [facility] for referral (narrative)* Diagnostic Procedure Only (Routine) - Pending Review Specialty Diagnoses / Procedures Referred By Leti tse Referred To Contact BR IMAGING Diagnoses Encounter for screening mammogram for malignant neoplasm of breast Procedures GEM SCREENING W JI SCREENING DIGITAL BREAST TOMOSYNTHESIS BI SCREENING MAMMOGRAPHY BI 2-VIEW BREAST INC CAD Gale Goodrich, KARIN.JEWELRY SALES ASSOCIATE [address] [address] [facility] [address] [place] [address] Referral ID Status Reason Start Date Expiration Date Visits Requested Visits Authorized [id number] Pending Review Auto-Generat ed Referral 08/12/2022 09/11/2023 1 1 [facility] for referral (narrative)* Outpatient Procedure (Routine) - Authorized Specialty Diagnoses / Procedures Referred By Contac t Referred To [facility] Diagnoses ILD (interstitial lung disease) (HCC) Procedures SPIROMETRY BASELINE ONLY SPMTRY W/VC EXPIRATORY SHALA W/WO MXML VOL VNTJ Alan Rene MD [address] [place] [address] [address] Referral ID Status Reason Start Date Expiration Date Visits Requested Visits Authorized [id number] Authorized Auto-Generat ed Referral 12/13/2022 01/12/2024 1 1 * Outpatient Procedure (Routine) - Authorized Specialty Diagnoses / Procedures Referred By Contac t Referred To Contact [facility] Diagnoses ILD (interstitial lung disease) (HCC) Procedures LUNG DIFFUSION CAPACITY (DLCO) DIFFUSING CAPACITY Alan Rene MD [address] [place] [address] [address] Referral ID Status Reason Start Date Expiration Date Visits Requested Visits Authorized [id number] Authorized Auto-Generat ed Referral 12/13/2022 01/12/2024 1 1 [facility] for referral (narrative)* Diagnostic Procedure Only (Routine) - Closed Specialty Diagnoses / Procedures Referred By Contac t Referred To Contact XR IMAGING Diagnoses Encounter for screening for osteoporosis Hyperparathyroidism (HCC) Procedures DXA-FOREARM SKELETON DXA BONE DENSITY STUDY 1/>SITES APPENDICLR Candie Dobbs MD [address] [place] [address] [place] [address] Referral ID Status Reason Start Date Expiration Date V isits Requested Visits Authorized [id number] Closed Auto-Generate d Referral 05/31/2022 06/30/2023 1 1 [facility] for referral (narrative)* Outpatient Procedure (Routine) - Authorized Specialty Diagnoses / Procedures Referred By Contac t Referred To Contact [facility]ORY [place] Diagnoses ILD (interstitial lung disease) (HCC) Procedures SPIROMETRY BASELINE ONLY SPMTRY W/VC EXPIRATORY SHALA W/WO MXML VOL VNTJ Alan Rene MD [address] [place] [address] [place] [id number] Referral ID Status Reason Start Date Expiration Date Visits Requested Visits Authorized [id number] Authorized Auto-Generat ed Referral 3 04/28/2024 1 1 * Outpatient Procedure (Routine) - Authorized Specialty Diagnoses / Procedures Referred By Contac t Referred To [facility]ATORY [place] Diagnoses ILD (interstitial lung disease) (HCC) Procedures LUNG DIFFUSION CAPACITY (DLCO) DIFFUSING CAPACITY Alan Rene MD [address] [place] [address] [place] [phone] Referral ID Status Reason Start Date Expiration Date Visits Requested Visits Authorized [id number] Authorized Auto-Generat ed Referral 3 04/28/2024 1 1 [facility] for referral (narrative)* Outpatient Procedure (Routine) - Authorized Specialty Diagnoses / Procedures Referred By Contac t Referred To [facility]ORY [place] Diagnoses ILD (interstitial lung disease) (HCC) Procedures SPIROMETRY BASELINE ONLY SPMTRY W/VC EXPIRATORY SHALA W/WO MXML VOL VNShayJ Alan Rene MD [address] [place] [address] [address] Referral ID Status Reason Start Date Expiration Date Visits Requested Visits Authorized [id number] Authorized Auto-Generat ed Referral 08/31/2023 09/29/2024 1 1 * Outpatient Procedure (Routine) - Authorized Specialty Diagnoses / Procedures Referred By Contac t Referred To Contact [facility] Diagnoses ILD (interstitial lung disease) (HCC) Procedures LUNG DIFFUSION CAPACITY (DLCO) DIFFUSING CAPACITY Alan Rene MD [address] [place] [address] [address] Referral ID Status Reason Start Date Expiration Date Visits Requested Visits Authorized [id number] Authorized Auto-Generat ed Referral 08/31/2023 09/29/2024 1 1 [facility] for referral (narrative)* Diagnostic Procedure Only (Urgent) - Closed Specialty Diagnoses / Procedures Referred By Contac t Referred To Contact XR IMAGING Diagnoses Acute pain of left shoulder Procedures XR SCAPULA 2V AP/LAT LEFT RADEX SCAPULA COMPLETE Ranjit Perera APRN.JEWELRY SALES ASSOCIATE [address] [place] [address] Xr Imaging [facility] Referral ID Status Reason Start Date Expiration Date V isits Requested Visits Authorized [id number] Closed Auto-Generate d Referral 03/18/2023 04/16/2024 1 1 [facility] for referral (narrative)* Outpatient Procedure (Routine) - Authorized Specialty Diagnoses / Procedures Referred By Contac t Referred To Contact [facility] Diagnoses ILD (interstitial lung disease) (HCC) Procedures SPIROMETRY BASELINE ONLY SPMTRY W/VC EXPIRATORY SHALA W/WO MXML VOL VNTJ Alan Rene MD [address] [place] [address] [facility] [place] [facility] [place] [address] Referral ID Status Reason Start Date Expiration Date Visits Requested Visits Authorized [id number] Authorized Auto-Generat ed Referral 4 04/04/2025 1 1 * Outpatient Procedure (Routine) - Authorized Specialty Diagnoses / Procedures Referred By Contac t Referred To Contact [facility] Diagnoses ILD (interstitial lung disease) (HCC) Procedures LUNG DIFFUSION CAPACITY (DLCO) DIFFUSING CAPACITY Alan Rene MD [address] [place] [address] Respiratory [place] [address] [place] [address] Referral ID Status Reason Start Date Expiration Date Visits Requested Visits Authorized [id number] Authorized Auto-Generat ed Referral 4 04/04/2025 1 1 [facility] Consultation (Routine) - Authorized Specialty Diagnoses / Procedures Referred By Contac t Referred To Contact Primary Care Diagnoses Pharyngitis, unspecified etiology Lymphadenopathy of head and neck Rash Tongue coating Procedures Follow Up In Advanced Primary Care - PCP Tayo Rodriguez MD [address] [facility] [address] [place] [address] Referral ID Status Reason Start Date Expiration Date V isits Requested Visits Authorized [id number] Authorized 06/30/2022 12/27/2022 1 1 [facility] Work Phone: Reason for visit Narrative* Diagnostic Procedure Only (Routine) - Closed Specialty Diagnoses / Procedures Referred By Contac t Referred To Contact XR IMAGING Diagnoses Encounter for screening for osteoporosis Hyperparathyroidism (HCC) Procedures DXA-FOREARM SKELETON DXA BONE DENSITY STUDY 1/>SITES APPENDICLR Candie Dobbs MD [address] [facility] [place] [address] [place] [address] Referral ID Status Reason Start Date Expiration Date V isits Requested Visits Authorized [id number] Closed Auto-Generate d Referral 05/31/2022 06/30/2023 1 1 [facility] for visit Narrative* Diagnostic Procedure Only (Urgent) - Closed Specialty Diagnoses / Procedures Referred By Contac t Referred To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 alcohol or drug abuse patient.[facility] ClinicIn the event this information is protected by the Federal Confidentiality of Alcohol and Drug Abuse Patient Records regulations: The Federal rules restrict any use of the information to criminally investigate or prosecute any alcohol or drug abuse patient.[facility] ClinicIn the event this information is protected by the Federal Confidentiality of Alcohol and Drug Abuse Patient Records regulations: The Federal rules restrict any use of the information to criminally investigate or prosecute any alcohol or drug abuse patient.[facility] ClinicIn the event this information is protected by the Federal Confidentiality of Alcohol and Drug Abuse Patient Records regulations: The Federal rules restrict any use of the information to criminally investigate or prosecute any alcohol or drug abuse patient.[facility] ClinicIn the event this information is protected by the Federal Confidentiality of Alcohol and Drug Abuse Patient Records regulations: The Federal rules restrict any use of the information to criminally investigate or prosecute any alcohol or drug abuse patient.[facility] ClinicIn the event this information is protected by the Federal Confidentiality of Alcohol and Drug Abuse Patient Records regulations: The Federal rules restrict any use of the information to criminally investigate or prosecute any alcohol or drug abuse patient.[facility] ClinicIn the event this information is protected by the Federal Confidentiality of Alcohol and Drug Abuse Patient Records regulations: The Federal rules restrict any use of the information to criminally investigate or prosecute any alcohol or drug abuse patient.[facility] ClinicIn the event this information is protected by the Federal Confidentiality of Alcohol and Drug Abuse Patient Records regulations: The Federal rules restrict any use of the information to criminally investigate or prosecute any alcohol or drug abuse patient.[facility] ClinicIn the event this information is protected by the Federal Confidentiality of Alcohol and Drug Abuse Patient Records regulations: The Federal rules restrict any use of the information to criminally investigate or prosecute any alcohol or drug abuse patient.[facility] ClinicIn the event this information is protected by the Federal Confidentiality of Alcohol and Drug Abuse Patient Records regulations: The Federal rules restrict any use of the information to criminally investigate or prosecute any alcohol or drug abuse patient.[facility] ClinicIn the event this information is protected by the Federal Confidentiality of Alcohol and Drug Abuse Patient Records regulations: The Federal rules restrict any use of the information to criminally investigate or prosecute any alcohol or drug abuse patient.[facility] ClinicIn the event this information is protected by the Federal Confidentiality of Alcohol and Drug Abuse Patient Records regulations: The Federal rules restrict any use of the information to criminally investigate or prosecute any alcohol or drug abuse patient.[facility] ClinicIn the event this information is protected by the Federal Confidentiality of Alcohol and Drug Abuse Patient Records regulations: The Federal rules restrict any use of the information to criminally investigate or prosecute any alcohol or drug abuse patient.[facility] ClinicIn the event this information is protected by the Federal Confidentiality of Alcohol and Drug Abuse Patient Records regulations: The Federal rules restrict any use of the information to criminally investigate or prosecute any alcohol or drug abuse patient.[facility] ClinicIn the event this information is protected by the Federal Confidentiality of Alcohol and Drug Abuse Patient Records regulations: The Federal rules restrict any use of the information to criminally investigate or prosecute any alcohol or drug abuse patient.[facility] ClinicIn the event this information is protected by the Federal Confidentiality of Alcohol and Drug Abuse Patient Records regulations: The Federal rules restrict any use of the information to criminally investigate or prosecute any alcohol or drug abuse patient.[facility] ClinicIn the event this information is protected by the Federal Confidentiality of Alcohol and Drug Abuse Patient Records regulations: The Federal rules restrict any use of the information to criminally investigate or prosecute any alcohol or drug abuse patient.[facility] ClinicIn the event this information is protected by the Federal Confidentiality of Alcohol and Drug Abuse Patient Records regulations: The Federal rules restrict any use of the information to criminally investigate or prosecute any alcohol or drug abuse patient.[facility] ClinicIn the event this information is protected by the Federal Confidentiality of Alcohol and Drug Abuse Patient Records regulations: The Federal rules restrict any use of the information to criminally investigate or prosecute any alcohol or drug abuse patient.[facility] ClinicIn the event this information is protected by the Federal Confidentiality of Alcohol and Drug Abuse Patient Records regulations: The Federal rules restrict any use of the information to criminally investigate or prosecute any alcohol or drug abuse patient.[facility] ClinicIn the event this information is protected by the Federal Confidentiality of Alcohol and Drug Abuse Patient Records regulations: The Federal rules restrict any use of the information to criminally investigate or prosecute any alcohol or drug abuse patient.[facility] ClinicIn the event this information is protected by the Federal Confidentiality of Alcohol and Drug Abuse Patient Records regulations: The Federal rules restrict any use of the information to criminally investigate or prosecute any alcohol or drug abuse patient.[facility] ClinicIn the event this information is protected by the Federal Confidentiality of Alcohol and Drug Abuse Patient Records regulations: The Federal rules restrict any use of the information to criminally investigate or prosecute any alcohol or drug abuse patient.[facility] ClinicIn the event this information is protected by the Federal Confidentiality of Alcohol and Drug Abuse Patient Records regulations: The Federal rules restrict any use of the information to criminally investigate or prosecute any alcohol or drug abuse patient.[facility] ClinicIn the event this information is protected by the Federal Confidentiality of Alcohol and Drug Abuse Patient Records regulations: The Federal rules restrict any use of the information to criminally investigate or prosecute any alcohol or drug abuse patient.[facility] ClinicIn the event this information is protected by the Federal Confidentiality of Alcohol and Drug Abuse Patient Records regulations: The Federal rules restrict any use of the information to criminally investigate or prosecute any alcohol or drug abuse patient.[facility] ClinicIn the event this information is protected by the Federal Confidentiality of Alcohol and Drug Abuse Patient Records regulations: The Federal rules restrict any use of the information to criminally investigate or prosecute any alcohol or drug abuse patient.[facility] ClinicIn the event this information is protected by the Federal Confidentiality of Alcohol and Drug Abuse Patient Records regulations: The Federal rules restrict any use of the information to criminally investigate or prosecute any alcohol or drug abuse patient.[facility] ClinicIn the event this information is protected by the Federal Confidentiality of Alcohol and Drug Abuse Patient Records regulations: The Federal rules restrict any use of the information to criminally investigate or prosecute any alcohol or drug abuse patient.[facility] ClinicIn the event this information is protected by the Federal Confidentiality of Alcohol and Drug Abuse Patient Records regulations: The Federal rules restrict any use of the information to criminally investigate or prosecute any alcohol or drug abuse patient.[facility] ClinicIn the event this information is protected by the Federal Confidentiality of Alcohol and Drug Abuse Patient Records regulations: The Federal rules restrict any use of the information to criminally investigate or prosecute any alcohol or drug abuse patient.[facility] ClinicIn the event this information is protected by the Federal Confidentiality of Alcohol and Drug Abuse Patient Records regulations: The Federal rules restrict any use of the information to criminally investigate or prosecute any alcohol or drug abuse patient.[facility] ClinicIn the event this information is protected by the Federal Confidentiality of Alcohol and Drug Abuse Patient Records regulations: The Federal rules restrict any use of the information to criminally investigate or prosecute any alcohol or drug abuse patient.[facility] ClinicIn the event this information is protected by the Federal Confidentiality of Alcohol and Drug Abuse Patient Records regulations: The Federal rules restrict any use of the information to criminally investigate or prosecute any alcohol or drug abuse patient.[facility] ClinicIn the event this information is protected by the Federal Confidentiality of Alcohol and Drug Abuse Patient Records regulations: The Federal rules restrict any use of the information to criminally investigate or prosecute any alcohol or drug abuse patient.[facility] ClinicIn the event this information is protected by the Federal Confidentiality of Alcohol and Drug Abuse Patient Records regulations: The Federal rules restrict any use of the information to criminally investigate or prosecute any alcohol or drug abuse patient.[facility] ClinicIn the event this information is protected by the Federal Confidentiality of Alcohol and Drug Abuse Patient Records regulations: The Federal rules restrict any use of the information to criminally investigate or prosecute any alcohol or drug abuse patient.[facility] ClinicIn the event this information is protected by the Federal Confidentiality of Alcohol and Drug Abuse Patient Records regulations: The Federal rules restrict any use of the information to criminally investigate or prosecute any alcohol or drug abuse patient.[facility] ClinicIn the event this information is protected by the Federal Confidentiality of Alcohol and Drug Abuse Patient Records regulations: The Federal rules restrict any use of the information to criminally investigate or prosecute any alcohol or drug abuse patient.[facility] ClinicIn the event this information is protected by the Federal Confidentiality of Alcohol and Drug Abuse Patient Records regulations: The Federal rules restrict any use of the information to criminally investigate or prosecute any alcohol or drug abuse patient.[facility] ClinicIn the event this information is protected by the Federal Confidentiality of Alcohol and Drug Abuse Patient Records regulations: The Federal rules restrict any use of the information to criminally investigate or prosecute any alcohol or drug abuse patient.[facility] ClinicIn the event this information is protected by the Federal Confidentiality of Alcohol and Drug Abuse Patient Records regulations: The Federal rules restrict any use of the information to criminally investigate or prosecute any alcohol or drug abuse patient.[facility] ClinicIn the event this information is protected by the Federal Confidentiality of Alcohol and Drug Abuse Patient Records regulations: The Federal rules restrict any use of the information to criminally investigate or prosecute any alcohol or drug abuse patient.[facility] ClinicIn the event this information is protected by the Federal Confidentiality of Alcohol and Drug Abuse Patient Records regulations: The Federal rules restrict any use of the information to criminally investigate or prosecute any alcohol or drug abuse patient.[facility] ClinicIn the event this information is protected by the Federal Confidentiality of Alcohol and Drug Abuse Patient Records regulations: The Federal rules restrict any use of the information to criminally investigate or prosecute any alcohol or drug abuse patient.[facility] ClinicIn the event this information is protected by the Federal Confidentiality of Alcohol and Drug Abuse Patient Records regulations: The Federal rules restrict any use of the information to criminally investigate or prosecute any alcohol or drug abuse patient.[facility] ClinicIn the event this information is protected by the Federal Confidentiality of Alcohol and Drug Abuse Patient Records regulations: The Federal rules restrict any use of the information to criminally investigate or prosecute any alcohol or drug abuse patient.[facility] Care Teams (unrecognized sec tion and content) Head Of Physics Relationship Specialty Start Date End Date Tayo Rodriguez MD PCP - General Family Practice 09/08/15 Sherrie Prather Jesus [address] [place] [address] Referring Rheumatology 04/28/20 Head Of Physics Relationship Specialty Start Date End Date Tayo Rodriguez MD PCP - General Family Practice 09/08/15 Sherrie Prather Jesus [address] [facility] [place] [address] Referring Rheumatology 04/28/20 Head Of Physics Relationship Specialty Start Date End Date Tayo Rodriguez MD PCP - General Family Practice 09/08/15 Sherrie Prather Jesus [address] [facility] [place] [address] Referring Rheumatology 04/28/20 Head Of Physics Relationship Specialty Start Date End Date Tayo Rodriguez MD PCP - General Family Practice 09/08/15 Sherrie Pratherv [address] [facility] [place] [address] Referring Rheumatology 04/28/20 Head Of Physics Relationship Specialty Start Date End Date Tayo Rodriguez MD PCP - General Family Practice 09/08/15 CrescencioSherrie buenov [address] [place] [address] Referring Rheumatology 04/28/20 Head Of Physics Relationship Specialty Start Date End Date Tayo Rodriguez MD PCP - General Family Practice 09/08/15 CrescencioSherrie buenohav [address] [place] [address] Referring Rheumatology 04/28/20 Head Of Physics Relationship Specialty Start Date End Date Tayo Rodriguez MD PCP - General Family Practice 09/08/15 CrescencioSherrie buenohav [address] [place] [address] Referring Rheumatology 04/28/20 Head Of Physics Relationship Specialty Start Date End Date Tayo Rodriguez MD PCP - General Family Practice 09/08/15 CrescencioSherriehav [address] [place] [address] Referring Rheumatology 04/28/20 Head Of Physics Relationship Specialty Start Date End Date Tayo Rodriguez MD PCP - General Family Medicine 09/08/15 Crescencio Achal Jesus [address] [place] [address] Referring Rheumatology 04/28/20 Head Of Physics Relationship Specialty Start Date End Date Tayo Rodriguez MD PCP - General Family Medicine 09/08/15 Sherrie Pratherv [address] [place] [address] Referring Rheumatology 04/28/20 Head Of Physics Relationship Specialty Start Date End Date Tayo Rodriguez MD PCP - General Family Medicine 09/08/15 Crescencio, Achal Jesus [address] [place] [address] Referring Rheumatology 04/28/20 Head Of Physics Relationship Specialty Start Date End Date Tayo Rodriguez MD PCP - General Family Medicine 09/08/15 Crescencio, Achal Jesus [address] [place] [address] Referring Rheumatology 04/28/20 Head Of Physics Relationship Specialty Start Date End Date Tayo Rodriguez MD PCP - General Family Medicine 09/08/15 Crescencio, Achal Jesus [address] [place] [address] Referring Rheumatology 04/28/20 Head Of Physics Relationship Specialty Start Date End Date Tayo Rodirguez MD PCP - General Family Medicine 09/08/15 Crescencio, Achal Jesus [address] [place] [address] Referring Rheumatology 04/28/20 Head Of Physics Relationship Specialty Start Date End Date Tayo Rodriguez MD PCP - General Family Medicine 09/08/15 Crescencio, Achal Jesus [address] [place] [address] Referring Rheumatology 04/28/20 Head Of Physics Relationship Specialty Start Date End Date Tayo Rodriguez MD PCP - General Family Medicine 09/08/15 Crescencio, Achal Jesus [address] [place] [address] Referring Rheumatology 04/28/20 Head Of Physics Relationship Specialty Start Date End Date Tayo Rodriguez MD PCP - General Family Medicine 09/08/15 Crescencio, Achal Jesus [address] [place] [address] Referring Rheumatology 04/28/20 Head Of Physics Relationship Specialty Start Date End Date Tayo Rodriguez MD PCP - General Family Medicine 09/08/15 Crescencio, Achal Jesus [address] [place] [address] Referring Rheumatology 04/28/20 Team Status: Active Member Role Status Dates TAYO RODRIGUEZ Family Provider Active No Primary Care Physician Primary Care Provider Active Team Status: Inactive Member Role Status Dates Dr. Erick New , DO Emergency Provider Active No Primary Care Physician Primary Care Provider Active Head Of Physics Relationship Specialty Start Date End Date Tayo Rodriguez MD PCP - General Family Medicine 09/08/15 Crescencio, Achal Jesus [address] [place] [address] Referring Rheumatology 04/28/20 Head Of Physics Relationship Specialty Start Date End Date Tayo Rodriguez MD PCP - General Family Medicine 09/08/15 Crescencio, Achal Jesus [address] [place] [address] Referring Rheumatology 04/28/20 Head Of Physics Relationship Specialty Start Date End Date Tayo Rodriguez MD PCP - General Family Medicine 09/08/15 Crescencio, Achal Jesus [address] [facility] [place] [address] Referring Rheumatology 04/28/20 Head Of Physics Relationship Specialty Start Date End Date Tayo Rodriguez MD PCP - General Family Medicine 09/08/15 Crescencio, Achal Jesus [address] [facility] [place] [address] Referring Rheumatology 04/28/20 Head Of Physics Relationship Specialty Start Date End Date Tayo Rodriguez MD PCP - General Family Medicine 09/08/15 Crescencio, Achal Jesus [address] [facility] [place] [address] Referring Rheumatology 04/28/20 Head Of Physics Relationship Specialty Start Date End Date Tayo Rodriguez MD PCP - General Family Medicine 09/08/15 Crescencio, Achal Jesus [address] [facility] [place] [address] Referring Rheumatology 04/28/20 Head Of Physics Relationship Specialty Start Date End Date Tayo Rodriguez MD [address] [place], [place] [id number] PCP - General 12/11/20 Tayo Rodriguez MD [address] [place] [address] PCP - Joyce CAMACHO PCP 01/16/22 Head Of Physics Relationship Specialty Start Date End Date Tayo Rodriguez MD PCP - General Family Medicine 09/08/15 Crescencio, Achal Jesus [address] [place] [address] Referring Rheumatology 04/28/20 Head Of Physics Relationship Specialty Start Date End Date Tayo Rodriguez MD PCP - General Family Medicine 09/08/15 Crescencio, Achal Jesus [address] [place] [address] Referring Rheumatology 04/28/20 Head Of Physics Relationship Specialty Start Date End Date Tayo Rodriguez MD PCP - General Family Medicine 09/08/15 Crescencio, Achal Jesus [address] [place] [address] Referring Rheumatology 04/28/20 Head Of Physics Relationship Specialty Start Date End Date Tayo Rodriguez MD PCP - General Family Medicine 09/08/15 Crescencio, Achal Jesus [address] [place] [address] Referring Rheumatology 04/28/20 Head Of Physics Relationship Specialty Start Date End Date Tayo Rodriguez MD PCP - General Family Medicine 09/08/15 Crescencio, Achal Jesus [address] [place] [address] Referring Rheumatology 04/28/20 Head Of Physics Relationship Specialty Start Date End Date Tayo Rodriguez MD PCP - General Family Medicine 09/08/15 Sherrie Prather [address] [facility] [place] [address] Referring Rheumatology 04/28/20 Head Of Physics Relationship Specialty Start Date End Date Tayo Rodriguez MD PCP - General Family Medicine 09/08/15 Sherrie Prather [address] [facility] [place] [address] Referring Rheumatology 04/28/20 Head Of Physics Relationship Specialty Start Date End Date Tayo Rodriguez MD [address] [place], [place] [address] PCP - General 12/11/20 Tayo Rodriguez MD [address] [place], [place] [address] PCP - Joyce BAINSO PCP 01/16/22 Head Of Physics Relationship Specialty Start Date End Date Tayo Rodriguez MD PCP - General Family Medicine 09/08/15 Sherrie Prather [address] [facility] [place] [address] Referring Rheumatology 04/28/20 Head Of Physics Relationship Specialty Start Date End Date Tayo Rodriguez MD PCP - General Family Medicine 09/08/15 Sherrie Prather [address] [facility] [place] [address] Referring Rheumatology 04/28/20 Head Of Physics Relationship Specialty Start Date End Date Tayo Rodriguez MD PCP - General Family Medicine 09/08/15 Sherrie Prather [address] [place] [address] Referring Rheumatology 04/28/20 Head Of Physics Relationship Specialty Start Date End Date Tayo Rodriguez MD PCP - General Family Medicine 09/08/15 Sherrie Prather [address] [facility] [place] [address] Referring Rheumatology 04/28/20 Head Of Physics Relationship Specialty Start Date End Date Tayo Rodriguez MD PCP - General Family Medicine 09/08/15 Sherrie Prather [address] [facility] [place] [address] Referring Rheumatology 04/28/20 Head Of Physics Relationship Specialty Start Date End Date Tayo Rodriguez MD [address] [place] [address] PCP - General 12/11/20 Tayo Rodriguez MD [address] [place] [address] PCP - Joyce CAMACHO PCP 01/16/22 Head Of Physics Relationship Specialty Start Date End Date Tayo Rodriguez MD PCP - General Family Medicine 09/08/15 Sherrie Prather [address] [facility] [place] [address] Referring Rheumatology 04/28/20 Head Of Physics Relationship Specialty Start Date End Date Tayo Rodriguez MD PCP - General Family Medicine 09/08/15 Sherrie Prather [address] [place] [address] Referring Rheumatology 04/28/20 Head Of Physics Relationship Specialty Start Date End Date Tayo Rodriguez MD PCP - General Family Medicine 09/08/15 Sherrie Prather [address] [place] [address] Referring Rheumatology 04/28/20 Head Of Physics Relationship Specialty Start Date End Date Tayo Rodriguez MD PCP - General Family Medicine 09/08/15 Sherrie Prather [address] [place] [address] Referring Rheumatology 04/28/20 Head Of Physics Relationship Specialty Start Date End Date Tayo Rodriguez MD PCP - General Family Medicine 09/08/15 Sherrie Prather [address] [place] [address] Referring Rheumatology 04/28/20 Head Of Physics Relationship Specialty Start Date End Date Tayo Rodriguez MD PCP - General Family Medicine 09/08/15 Sherrie Prather [address] [facility] [place] [address] Referring Rheumatology 04/28/20 Head Of Physics Relationship Specialty Start Date End Date Tayo Rodriguez MD PCP - General Family Medicine 09/08/15 Sherrie Prather [address] [facility] [place] [address] Referring Rheumatology 04/28/20 Head Of Physics Relationship Specialty Start Date End Date Tayo Rodriguez MD [address] [place] [address] PCP - General 12/10/15 Head Of Physics Relationship Specialty Start Date End Date Tayo Rodriguez MD PCP - General Family Medicine 09/08/15 Sherrie Prather [address] [facility] [place] [address] Referring Rheumatology 04/28/20 Head Of Physics Relationship Specialty Start Date End Date Tayo Rodriguez MD PCP - General Family Medicine 09/08/15 Sherrie Prather [address] [facility] [place] [address] Referring Rheumatology 04/28/20 Head Of Physics Relationship Specialty Start Date End Date Tayo Rodriguez MD [address] [place] [address] PCP - General 12/10/15 Head Of Physics Relationship Specialty Start Date End Date Tayo Rodriguez MD PCP - General Family Medicine 09/08/15 Sherrie Prather [address] [facility] [place] [address] Referring Rheumatology 04/28/20 Head Of Physics Relationship Specialty Start Date End Date Tayo Rodriguez MD PCP - General Family Medicine 09/08/15 Sherrie Prather [address] [facility] [place] [address] Referring Rheumatology 04/28/20 Head Of Physics Relationship Specialty Start Date End Date Tayo Rodriguez MD PCP - General Family Medicine 09/08/15 Sherrie Prather [address] [facility] [place] [address] Referring Rheumatology 04/28/20 Head Of Physics Relationship Specialty Start Date End Date Tayo Rodriguez MD [address] [place] [address] PCP - General 12/11/20 Tayo Rodriguez MD [address] [place] [address] PCP - Joyce CAMACHO PCP 01/16/22 Head Of Physics Relationship Specialty Start Date End Date Tayo Rodriguez MD PCP - General Family Medicine 09/08/15 Sherrie Prather [address] [place] [address] Referring Rheumatology 04/28/20 Head Of Physics Relationship Specialty Start Date End Date Tayo Rodriguez MD PCP - General Family Medicine 09/08/15 Sherrie Prather [address] [facility] [place] [address] Referring Rheumatology 04/28/20 Head Of Physics Relationship Specialty Start Date End Date Tayo Rodriguez MD PCP - General Family Medicine 09/08/15 Sherrie Prather [address] [facility] [place] [address] Referring Rheumatology 04/28/20 Head Of Physics Relationship Specialty Start Date End Date Tayo Rodriguez MD PCP - General Family Medicine 09/08/15 Sherrie Prather [address] [facility] [place] [address] Referring Rheumatology 04/28/20 Head Of Physics Relationship Specialty Start Date End Date Tayo Rodriguez MD [address] [place] [address] PCP - General 12/11/20 Tayo Rodriguez MD [address] [place] [address] PCP - Mcconnico ACO PCP 01/16/22 Head Of Physics Relationship Specialty Start Date End Date Tayo Rodriguez MD [address] [place] [address] PCP - General 12/11/20 Tayo Rodriguez MD [address] [place] [address] PCP - Mcconnico ACO PCP 01/16/22 Head Of Physics Relationship Specialty Start Date End Date Tayo Rodriguez MD [address] [place] [address] PCP - General 12/11/20 Tayo Rodriguez MD [address] [place] [address] PCP - Mcconnico ACO PCP 01/16/22 Head Of Physics Relationship Specialty Start Date End Date Tayo Rodriguez MD [address] [place] [address] PCP - General 12/11/20 Tayo Rodriguez MD [address] [place] [address] PCP - Mcconnico ACO PCP 01/16/22 Head Of Physics Relationship Specialty Start Date End Date Tayo Rodriguez MD [address] [place] [address] PCP - General 12/11/20 Tayo Rodriguez MD [address] [place] [address] PCP - Mcconnico ACO PCP 01/16/22 Glendy Ram, radio time salespersonFraming Specialist 06/07/24 Head Of Physics Relationship Specialty Start Date End Date Tayo Rodriguez MD [address] [place] [address] PCP - General 12/11/20 Tayo Rodriguez MD [address] [place] [address] PCP - Mcconnico ACO PCP 01/16/22 Glendy Ram, radio time salespersonFraming Specialist 06/07/24 Head Of Physics Relationship Specialty Start Date End Date Tayo Rodriguez MD [address] [place] [address] PCP - General 12/11/20 Tayo Rodriguez MD [address] [place] [address] PCP - Mcconnico ACO PCP 01/16/22 Glendy Rma, radio time salespersonFraming Specialist 06/07/24 Head Of Physics Relationship Specialty Start Date End Date Tayo Rodriguez MD PCP - General Family Medicine 09/08/15 Sherrie [address] [place] [address] Referring Rheumatology 04/28/20 Head Of Physics Relationship Specialty Start Date End Date Tayo Rodriguez MD PCP - General Family Medicine 09/08/15 Sherrie Prather [address] [place] [address] Referring Rheumatology 04/28/20 Head Of Physics Relationship Specialty Start Date End Date Tayo Rodriguez MD PCP - General Family Medicine 09/08/15 Sherrie Prather [address] [place] [address] Referring Rheumatology 04/28/20 Head Of Physics Relationship Specialty Start Date End Date Tayo Rodriguez MD PCP - General Family Medicine 09/08/15 Sherrie Prather [address] [place] [address] Referring Rheumatology 04/28/20 Head Of Physics Relationship Specialty Start Date End Date Tayo Rodriguez MD PCP - General Family Medicine 09/08/15 Sherrie Prather [address] [place] [address] Referring Rheumatology 04/28/20 Head Of Physics Relationship Specialty Start Date End Date Tayo Rodriguez MD PCP - General Family Medicine 09/08/15 Sherrie Prather [address] [place] [address] Referring Rheumatology 04/28/20 Head Of Physics Relationship Specialty Start Date End Date Tayo Rodriguez MD PCP - General Family Medicine 09/08/15 Sherrie Prather [address] [place] [address] Referring Rheumatology 04/28/20 Head Of Physics Relationship Specialty Start Date End Date Tayo Rodriguez MD [address] [place] [address] PCP - General 12/11/20 Tayo Rodriguez MD [address] [place] [address] PCP - Mcconnico ACO PCP 01/16/22 Head Of Physics Relationship Specialty Start Date End Date Tayo Rodriguez MD [address] [place] [address] PCP - General 12/11/20 Tayo Rodriguez MD [address] [place] [address] PCP - Mcconnico ACO PCP 01/16/22 Head Of Physics Relationship Specialty Start Date End Date Tayo Rodriguez MD [address] [place] [address] PCP - General 12/11/20 Tayo Rodriguez MD [address] [place] [address] PCP - Joyce BAINSO PCP 01/16/22 Goals (unrecognized section and content) [...] BE BASED ON THE PRIMARY CLINICAL RECORDS. [facility]. provides no warranty or guarantee of the accuracy or completeness of information in this document.
--- NOTE | 2025-03-25 19:42 | EX.ED.DYSGE1 ---
HPI History of Present Illness Chief Complaint: Flank Pain Informant: patient Onset/Context/Timing Onset: Days Context: Gradual Onset Timing: Continuous Quality: Sharp Location: Left flank Worsened by: Movement, sneezing, coughing Relieved by: Rest Narrative Narrative: Patient presents with left flank pain that has been getting worse over the past 5 days. Patient describes her pain as sharp. Patient states it is over the left flank area. Patient states it is constant. Patient states it is worse with movement, sneezing, and coughing. Patient states it is better with rest. Patient denies any dysuria, frequency, or hematuria. Patient admits to some slight shortness of breath. Patient also admits to some rhinorrhea. Patient denies any fevers or chills. PFSH PFS Medical History (Updated 03/25/25 @ 22:[address] Dre Marcial, DO) Pulmonary interstitial fibrosis Rheumatoid arthritis Lung disease Home Medications ?Medication ?Instructions ?Recorded ?Last Taken ?Type hydroxychloroquine 200 mg tablet 200 mg PO DAILY 08/14/14 03/24/25 History acetaminophen 500 mg capsule 1,000 mg PO Q6H PRN fever or pain 03/25/25 03/25/25 History budesonide-formoterol HFA 160 2 puff inhalation BID 03/25/25 03/25/25 History mcg-4.5 mcg/actuation aerosol inhaler doxycycline hyclate 20 mg tablet 20 mg PO BID 03/25/25 03/25/25 History montelukast 10 mg tablet 10 mg PO QHS 03/25/25 03/24/25 History mycophenolate sodium 180 mg 720 mg PO DAILY 03/25/25 03/24/25 History tablet,delayed release sertraline 25 mg tablet 25 mg PO DAILY 03/25/25 03/24/25 History warfarin 1 mg tablet 1 - 2 mg PO DAILY 03/25/25 03/24/25 History Allergy/AdvReac Type Severity Reaction Status Date / Time metronidazole (From Flagyl) AdvReac Rash Verified 03/25/25 19:09 Surgical History (Updated 03/25/25 @ 22:[address] Dre Marcial, DO) Hx of parathyroidectomy Hx of appendectomy H/O partial thyroidectomy Social History Smoking Status: Never smoker ROS ROS ED Constitutional Constitutional ED: Denies chills or fever(s) Eyes Eyes: Denies blurry vision or change in vision ENT ENT ED: Reports rhinorrhea; Denies sore throat Cardiovascular Cardiovascular: Denies chest pain or palpitations Respiratory/Chest Respiratory/Chest: Reports dyspnea; Denies cough Gastrointestinal Gastrointestinal: Denies nausea or vomiting Genitourinary Genitourinary ED: Denies dysuria or hematuria Musculoskeletal Musculoskeletal: Reports back pain; Denies neck pain Integumentary Denies abscess or rash Neurologic Neurologic: Denies headache(s) or weakness Allergic/Immunologic Allergic/Immunologic ED: Denies mouth swelling or urticaria EXAM Physical Exam Const Vital Signs: 03/25/25 19:08 03/25/25 20:05 03/25/25 22:21 Temperature 96.7 F L Temperature Source Temporal Pulse Rate 103 H 67 Respiratory Rate 20 H 16 17 Blood Pressure 110/77 103/78 103/77 Blood Pressure Mean 88 86 85 Pulse Ox 98 94 99 03/25/25 22:22 Temperature 96.7 F L Temperature Source Pulse Rate 67 Respiratory Rate 17 Blood Pressure 103/77 Blood Pressure Mean 85 Pulse Ox 99 Positive well nourished and well developed Constitutional Narrative: BMI is 20.8. General Appearance ED: well developed and NAD HEENT Reports moist mucous membranes Eyes PERRL and EOMs intact bilaterally Neck supple and no JVD Resp normal respiratory effort and clear to auscultation bilaterally Cardio regular rate and regular rhythm GI non-tender and non-distended Palpation: soft Back/Spine General Back: CVA tenderness left Extremity normal to inspection Neuro oriented x3, CN's II-XII intact bilaterally and no sensory deficits noted Sensorium / Orientation: alert Motor Exam: strength 5/5 throughout Psych mental status grossly normal MDM MDM MDM Narrative Medical decision making narrative: Differential diagnosis includes ureteral calculus, pyelonephritis, dehydration, electrolyte abnormality, and musculoskeletal pain. CT scan of the abdomen and pelvis will be obtained to assess for ureteral calculus and pyelonephritis. CBC will be obtained to assess for leukocytosis and anemia. Basic metabolic profile will be obtained to assess for electrolyte abnormality renal function. Serum hCG will be obtained to assess for . Lab Data Labs: Laboratory Results - last 24 hr 03/25/25 19:55 WBC 6.8 RBC 4.19 L Hgb 10.7 L Hct 34.8 L MCV 83.1 MCH 25.5 L MCHC 30.7 L RDW Std Deviation 41.7 RDW Coeff of Guy 13.9 Plt Count 301 MPV 10.1 Immature Gran % (Auto) 0.300 Neut % (Auto) 70.6 H Lymph % (Auto) 19.3 Mcdowell % (Auto) 6.8 Eos % (Auto) 2.4 Baso % (Auto) 0.6 Absolute Neuts (auto) 4.8 Absolute Lymphs (auto) 1.31 Nucleated RBC % 0 Sodium 138 Potassium 4.0 Chloride 103 Carbon Dioxide 24.4 Anion Gap 11 BUN 10 Creatinine 0.68 L Estim Creat Clear Calc 91.17 Est GFR (MDRD) Non-Af 110 BUN/Creatinine Ratio 14.6 Glucose 101 H Calcium 8.5 Serum , Qual NEGATIVE Radiography Diagnostic Testing: Clinical Impression(s) from Imaging Studies Abdomen/Pelvis CT 03/25/25 20:14 IMPRESSION: 1. No acute findings in the abdomen or pelvis. 2. Redemonstrated moderate hiatal hernia. 3. Nonobstructive 4 mm left renal calculus unchanged. 4. Moderate colonic stool burden suggesting constipation. Reading Location: [facility] CT scan of the abdomen and pelvis was obtained. There is no evidence of ureteral calculus or pyelonephritis. There is no free air or free fluid. This was interpreted by the radiologist. I also independently reviewed the images. There is no evidence of ureteral calculus. There is a stone in the left kidney. Treatment and Re-Evaluation :: Patient was given IV fluids. Patient was feeling better on reevaluation. Patient was instructed to drink plenty of fluids. Patient was instructed to continue her pain medications as prescribed. Patient was instructed to follow-up with her primary care physician in 5 to 7 days. Patient understood and was agreeable with the plan. All questions were answered. Discharge Plan Triage Chief Complaint: Flank Pain ED Provider: Dre Marical Dx/Rx/DC Orders Clinical Impression: Acute left flank pain Instructions: ED Flank Pain with Uncertain Cause Prescriptions: No Action hydroxychloroquine 200 MG tablet 200 mg PO DAILY Patient Comments: prevent heart attack, stroke sertraline 25 mg tablet 25 mg PO DAILY montelukast 10 mg tablet 10 mg PO QHS warfarin 1 mg tablet 1 - 2 mg PO DAILY doxycycline hyclate 20 mg tablet 20 mg PO BID mycophenolate sodium 180 mg tablet,delayed release (DR/EC) 720 mg PO DAILY budesonide-formoterol 160-4.5 mcg/actuation HFA aerosol inhaler 2 puff INHALATION BID acetaminophen 500 mg capsule 1,000 mg PO Q6H PRN (Reason: fever or pain) Primary Care Provider: Solomon Rodriguez Referrals: Solomon Rodriguez MD [Primary Care Provider, Orthopedics] - 3-5 Days Print Language: Kazakh Disposition Disposition: Home, Self Care Discharge Date/Time: 03/25/25 22:22
[2025-03-25] MEDS: 0.9% Normal Saline (1000mL) 1,000 ML 999 ML IV (20:03)
[2025-03-25 20:05] VITALS: BP 103/78; PULSE 67; RESP 16; O2SAT 94
--- NOTE | 2025-03-25 20:14 | CT_ITS ---
PROCEDURE: ABDOMEN/PELVIS WITHOUT CONT 03/25/2025 REASON FOR EXAM: PAIN TECHNIQUE: Procedure Code: [id number] Modality: CT Procedure: ABDOMEN/PELVIS WITHOUT CONT Noncontrast technique limits evaluation of the abdominal and pelvic viscera. Coronal and Sagittal reconstruction series were provided. One or more dose reduction techniques were used (e.g., Automated exposure control, adjustment of the mA and/or kV according to patient size, use of iterative reconstruction technique). COMPARISON: CT abdomen and pelvis 03/30/2021 FINDINGS: Lung bases: Redemonstrated moderate hiatal hernia with air-fluid levels. Extensive chronic changes and honeycombing of the posterior lung bases bilaterally. No focal consolidation. Liver: Normal size. No obvious mass. Gallbladder: Unremarkable. No biliary ductal dilatation. Spleen: Normal size. Pancreas: Normal size. No surrounding inflammation. Adrenals: No adrenal masses. Kidneys: Nonobstructive left renal calculus measures 4 mm. No hydronephrosis bilaterally. Bladder: Unremarkable. Reproductive Organs: Retroverted uterus with multiple scattered calcifications, likely sequelae of prior infection. Bowel: Moderate colonic stool burden suggesting constipation. No bowel obstruction. No inflammatory changes. Appendix: The appendix is not identified. There is no inflammatory process identified in the right lower quadrant to suggest appendicitis. Lymph nodes: Unremarkable. Vasculature: The abdominal aorta and IVC contours are normal. Noncontrast technique limits evaluation. Peritoneum / Retroperitoneum: No free fluid or air. Bones: Unremarkable. No acute fractures. CT/Abdomen/Pelvis without Cont IMPRESSION: 1. No acute findings in the abdomen or pelvis. 2. Redemonstrated moderate hiatal hernia. 3. Nonobstructive 4 mm left renal calculus unchanged. 4. Moderate colonic stool burden suggesting constipation. Reading Location: [facility]
[2025-03-25 20:32] LABS: Hematocrit 34.8 % (37-47); Hemoglobin 10.7 g/dL (12.0-15.0); Immature Granulocytes Count 0.020 X10^3/uL (0.0-0.0); Mean Corp Hgb Conc 30.7 g/dL (32-36); Mean Corpuscular Volume 83.1 fL (81-99); Mean Platelet Vol. 10.1 fl (6.2-12.0); NRBC Flagged by Analyzer 0 % (0-5); Platelet Count 301 K/mm3 (150-450); RBC Distribution Width CV 13.9 % (11.6-14.6); RBC Distribution Width SD 41.7 fl (35.1-43.9); Red Blood Count 4.19 M/mm3 (4.2-5.4); White Blood Count 6.8 K/mm3 (4.4-11.0)
[2025-03-25 20:39] LABS: Internal QC Validated? YES +Cl - CLEAR BKGD; Pregnancy, Serum, hCG Quali. NEGATIVE Negative
[2025-03-25 20:42] LABS: Anion Gap 11 (5-15); BUN 10 mg/dL (4-19); BUN/Creat Ratio 14.6 RATIO (10-20); Calcium,Total 8.5 mg/dL (7.6-11.0); Carbon Dioxide 24.4 mmol/L (21.0-32.0); Chloride 103 mmol/L (98-108); Estimated Creatinine Clearance 91.17 ml/min (50-250); Glucose 101 mg/dL (70-99); Potassium 4.0 mmol/L (3.3-5.1)
[2025-03-25 22:21] VITALS: BP 103/77; RESP 17; O2SAT 99
[2025-03-25 22:22] VITALS: BP 103/77; PULSE 67; RESP 17; TEMP 35.9; O2SAT 99
== END 2025-03-25 22:22 | disposition home or self-care (01) ==
PROVIDERS: Emergency Provider Emergency Medicine; PCP Orthopaedic Surgery Orthopaedic Surgery of the Spine; Visit Provider Emergency Medicine
DX: R10.A2 Flank pain, left side (principal); R06.02 Shortness of breath; M54.9 Dorsalgia, unspecified; J34.89 Other specified disorders of nose and nasal sinuses; Z79.01 Long term (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 of anticoagulants
CPT/HCPCS: 74176; 80048; 84703; 85025; 96360; 99283; A4216